=== PATIENT | male | born 1970 | race Caucasian/White ===

== ENCOUNTER 2024-02-16 06:17 | Inpatient (IN) | payer MEDICAID ==
[~2024-02-16] VITALS: Ht 167.6 cm; Wt 52.4 kg
[2024-02-16] VITALS (9 sets, daily range): BP systolic 96; BP diastolic 62; PULSE 73–95; RESP 14–20; TEMP 97.5; O2SAT 95–100
--- NOTE | 2024-02-16 06:41 | ED.PDOC ---
GI ASSESSMENT HPI Comments 54Y M with PMHx pancreatic CA, pancreatitis, and pancreatic stones presents to ED for chief complaint abd pain x3days. Pt states he was seen at a different facility yesterday and was given a Toradol 60mg injection. Per pt, he has received Dilaudid injections in the past. Pt has been unable to sleep due to the severe pain. Pt denies chest pain and SOB. Pt is being f/u by GI at [facility] but recently moved to [place] and does not have transportation to his appts in [place]. Pt was also being f/u by pain management but has not been able to get a new appt for new medications. Time Seen by MD: 06:28 Reviewed Notes: Medications, Allergies Allergies: Coded Allergies: NO KNOWN ALLERGIES (Unverified , 02/16/24) Information Source: Patient Mode of Arrival: Ambulatory Timing: Days Duration: Since onset Quality: Sharp Vomitus: None Stool: Normal Severity: Moderate Recent: None Recent Hx of: None Pain Location: Diffuse Modifying Factors: Nothing Associated sign and symptoms: Abdominal Pain Past Medical History PAST MEDICAL HISTORY: Cancer Past Medical History (Other): Pancreatitis, pancreatic stone Surgical History: Denies all surgeries Family History Family History: Unknown Social History Smoker: Non-Smoker Alcohol: Sober Drugs: Denies Drug Use Lives In: Home Constitutional: denies: chills, diaphoresis, fatigue, fever, malaise, sweats, weakness, others EENTM: denies: blurred vision, double vision, ear bleeding, ear discharge, ear drainage, ear pain, ear ringing, eye pain, eye redness, hearing loss, mouth p ain, mouth swelling, nasal discharge, nose bleeding, nose congestion, nose pain, photophobia, tearing, throat pain, throat swelling, voice changes, others Respiratory: denies: cough, hemoptysis, orthopnea, SOB at rest, shortness of br eath, SOB with excertion, stridor, wheezing, others Cardiovascular: denies: chest pain, dizzy spells, diaphoresis, Dyspnea on exertion, edema, irregular heart beat, left arm pain, lightheadedness, palpitations, PND, syncope, others Gastrointestinal: reports: abdominal pain; denies: abdomen distended, blood streaked bowels, constipated, diarrhea, dysphagia, difficulty swallowing, hematemesis, melena, nausea, poor appetite, poor fluid intake, rectal bleeding, rectal pain, vomiting, others Genitourinary: denies: burning, dysuria, flank pain, frequency, hematuria, incontinence, penile discharge, penile sore, pain, testicle pain, testicle swelling, urgency, others Neurological: denies: dizziness, fainting, headache, left sided numbness, left sided weakness, numbness, paresthesia, pre-existing deficit, right sided numbness, right sided weakness, seizure, speech problems, tingling, tremors, weakness, others Musculoskeletal: denies: back pain, gout, joint pain, joint swelling, muscle pain, muscle stiffness, neck pain, others Integumetry: denies: bruises, change in color, change in hair/nails, dryness, laceration, lesions, lumps, rash, wounds, others Allergic/Immunocompromised: denies: Difficulty Healing, Frequent Infections, Hives, Itching, others Hematologic/Lymphatic: denies: anemia, blood clots, easy bleeding, easy bruisin g, swollen glands, others Endocrine: denies: excessive hunger, excessive sweating, excessive thirst, excessive urination, flushing, intolerance to cold, intolerance to heat, unexplained weight gain, unexplained weight loss, others Psychiatric: denies: anxiety, bipolar disorder, depression, hopeless, panic disorder, schizophrenia, sleepless, suicidal, others All Other Systems: Reviewed and Negative Physical Exam General Appearance: Other (chronically ill appearing) HEENT: Normal ENT Inspection, Pharynx Normal, TMs Normal Neck: Full Range of Motion, Non-Tender, Normal, Normal Inspection Respiratory: Chest Non-Tender, Lungs Clear, No Accessory Muscle Use, No Respiratory Distress, Normal Breath Sounds Cardiovascular: No Edema, No JVD, No Murmur, No Gallop, Normal Peripheral Pulses, Regular Rate/Rhythm Breast Exam: Deferred Gastrointestinal: Diffuse, No Organomegaly, No Pulsatile Mass, Normal Bowel Sounds, Tenderness Genitalia: Deferred Pelvic: Deferred Rectal: Deferred Extremities: No calf tenderness, Normal capillary refill, Normal inspection, Normal range of motion, Non-tender, No pedal edema Musculoskeletal : Apperance: Normal Neurologic: Alert, an/sqq 89(v)15 sonar system journeyman II-XII nml as Tested, No Motor Deficits, Normal Affect, Normal Mood, No Sensory Deficits Cerebellar Function: NOT DONE Reflexes: NOT DONE Skin: Dry, Normal Color, Warm Lymphatic: No Adenopathy Was a procedure done? Was a procedure done?: No GI differential Dx Differential Diagnosis: Diverticular disease, Gastroenteritis, Pancreatitis, Electrolyte Imbalance, Bacterial, Malnutrition X-Ray, Labs, Meds, VS Vital Signs Date Time Temp Pulse Resp B/P (MAP) Pulse Ox O2 Delivery O2 Flow Rate FiO2 02/16/24 06:56 16 96 Room Air* 0 21 02/16/24 06:55 104 18 116/76 02/16/24 06:40 98.6 104 20 116/76 (89) 98 98.6 02/16/24 06:23 97.9 102 20 96/65 (75) 98 Lab Test 02/16/24 07:18 Range/Units White Blood Count 7.3 4.4-10.8 10^3/uL Red Blood Count 3.75 L 4.5-5.90 10^6/uL Hemoglobin 12.3 L 13.5-17.5 g/dL Hematocrit 36.4 L 41.0-53.0 % Mean Corpuscular Volume 97.0 80.0-100.0 fL Mean Corpuscular Hemoglobin 32.7 H 28.0-32.0 pg Mean Corpuscular Hemoglobin Concent 33.7 32.0-36.0 g/dL Red Cell Distribution Width 16.4 H 11.8-14.3 % Platelet Count 415 140-450 10^3/uL Mean Platelet Volume 6.1 L 6.9-10.8 fL Neutrophils (%) (Auto) 59.4 37.0-80.0 % Lymphocytes (%) (Auto) 27.2 10.0-50.0 % Monocytes (%) (Auto) 9.4 0.0-12.0 % Eosinophils (%) (Auto) 3.4 0.0-7.0 % Basophils (%) (Auto) 0.6 0.0-2.0 % Neutrophils # (Auto) 4.3 1.6-8.6 10 ^3/uL Lymphocytes # (Auto) 2.0 0.4-5.4 10 ^3/uL Monocytes # (Auto) 0.7 0-1.3 10 ^3/uL Eosinophils # (Auto) 0.2 0-0.8 10 ^3/uL Basophils # (Auto) 0 0-0.2 10 ^3/uL Nucleated Red Blood Cells 0.1 % Sodium Level 139 136-145 mmol/L Potassium Level 4.1 3.5-5.1 mmol/L Chloride Level 107 98-107 mmol/L Carbon Dioxide Level 25 20-31 mmol/L Anion Gap 7 5-15 Blood Urea Nitrogen 14 9-23 mg/dL Creatinine 0.57 L 0.700-1.30 mg/dL Glomerular Filtration Rate Calc 116 >90 mL/min BUN/Creatinine Ratio 24.6 H 10.0-20.0 Serum Glucose 100 74-106 mg/dL Lactic Acid Level 0.7 0.4-2.0 mmol/L Calcium Level 8.9 8.7-10.4 mg/dL Total Bilirubin 0.2 0.2-1.0 mg/dL Aspartate Amino Transferase (AST) 17 13-40 U/L Alanine Aminotransferase (ALT) 13 7-40 U/L Alkaline Phosphatase 107 46-116 U/L Total Protein 6.5 5.7-8.2 g/dL Albumin 3.6 3.2-4.8 g/dL Lipase 68 H 12-53 U/L Current Medications Medications (Trade) Dose Ordered Sig/Desean Route Start Time Stop Time Status Last Admin Sodium Chloride 1,000 ml @ 1,000 mls/hr Q1H ONCE IV 02/16/24 06:45 02/16/24 07:44 DC 02/16/24 06:53 Ondansetron HCl (Zofran) 4 mg ONCE ONCE IV 02/16/24 06:45 02/16/24 06:46 DC 02/16/24 06:54 Pantoprazole Sodium (Protonix) 40 mg ONCE ONCE IV 02/16/24 06:45 02/16/24 06:46 DC 02/16/24 06:54 Morphine Sulfate 4 mg ONCE ONCE IV 02/16/24 06:45 02/16/24 06:46 DC 02/16/24 06:[address] [address] Ph: [phone] DIAGNOSTIC IMAGING Diagnostic Imaging Report : [id number] Signed PATIENT: BC STERLING ACCT: [id number] UNIT: [id number] : 1970 LOC: ER ROOM / BED: / AGE / SEX: 54 / M ADM STATUS: REG ER SERVICE 1 ORDERING PHYSICIAN: IDA HARTMAN MD PROCEDURE(s): CXRP - CHEST PORTABLE REASON: epigastric pain ORDER NUMBER(s): [id number], ACCESSION NUMBER(s): [id number] CHEST PORTABLE, HISTORY: epigastric pain COMPARISON: None None TECHNICAL DATA: 1 view of the chest was obtained. FINDINGS: Lines and tubes: None Cardiomediastinal silhouette: normal Pulmonary vasculature: normal Lung expansion: normal Lung airspace: Bilateral upper lung zone airspace opacity. Lung interstitium: normal Pleura: normal Pneumothorax: no Bones: Unremarkable Other: no IMPRESSION: Bilateral upper lung zone airspace opacity could be pneumonia.. ATED BY: FADY NULL MD DICTATED DATE/TIME: 02/16/24906 SIGNED BY: FADY NULL MD SIGNED DATE/TIME: 02/16/24906 CC: [place] [address] Ph: [phone] DIAGNOSTIC IMAGING Diagnostic Imaging Report : [id number] Signed PATIENT: BC STERLING ACCT: [id number] UNIT: [id number] : 1970 LOC: ER ROOM / BED: / AGE / SEX: 54 / M ADM STATUS: REG ER SERVICE 1 ORDERING PHYSICIAN: IDA HARTMAN MD PROCEDURE(s): ABPLIV - CT AB PEL WITH IV CON ONLY REASON: hx of pancreatic ca with epigastric pain ORDER NUMBER(s): [id number], ACCESSION NUMBER(s): [id number] CT CT AB PEL WITH IV CON ONLY INDICATION: hx of pancreatic ca with epigastric pain EXAM DATE: 02/16/2024 08:37 AM COMPARISON: None RADIATION DOSE: CTDIvol: 5.0 mGy, DLP: 276.63 mGy*cm PROCEDURE: Helical CT images were obtained of the abdomen and pelvis with IV contrast Sagittal and coronal reconstructions are provided. ORAL CONTRAST: None. ADDITIONAL IMAGES / REFORMATS: None All CT scans at this medical facility are performed using dose modulation techniques as appropriate to a performed exam including the following: Automated exposure control was utilized; adjustment of the MA and/or KV according to patient size; and use of iterative reconstruction technique. FINDINGS: LUNG BASE: Normal. LIVER: Subcentimeter hypodense cystic lesion too small to characterize. GALLBLADDER AND BILIARY TREE: No calcified gallstones. Normal caliber wall. Mild intrahepatic bile duct dilation. PANCREAS: Coarse pancreatic calcifications and dilated pancreatic duct with a hypodense cystic mass lesion at the head of the pancreas. SPLEEN: Normal. BOWEL: Normal in size. Normal appendix. ADRENALS: Normal. KIDNEYS AND URETER: Normal. BLADDER: Normal. REPRODUCTIVE ORGANS: Normal. LYMPH NODES:No lymphadenopathy. PERITONEUM: No ascites or free air. No other fluid collection. VESSELS: Scattered atherosclerotic calcifications are noted. RETROPERITONEUM: Normal. ABDOMINAL WALL: Normal. BONES: Scattered osseous degenerative changes are noted. IMPRESSION: No acute intraabdominal abnormality. Moderate to large colonic fecal burden. Coarse pancreatic calcifications and dilated pancreatic duct with a hypodense cystic mass lesion at the head of the pancreas. Subcentimeter hypodense cystic lesion too small to characterize. ATED BY: FADY NULL MD DICTATED DATE/TIME: 02/16/24925 SIGNED BY: FADY NULL MD SIGNED DATE/TIME: 02/16/24925 CC: Time of 1ST Reevaluation: 06:58 Reevaluation 1ST: Unchanged Patient Education/Counseling: Diagnosis, Treatment Family Education/Counseling: No Family Present Additional Information The following tests were ordered, and results were reviewed by me: CBC, CMP, lactic acid, lipase, CXR, CT abd/pelvis W IV contrast I reviewed and agreed with the following test results read by other providers: CXR, CT abd/pelvis W IV contrast I discussed treatments and results with medical personnel. Departure 1 Departure Time of Disposition: 10:08 (Patient presented with abdominal pain that was concerning for possible appendicits, gastritis, cholecystitis, colitis, gastroenteritis, sbo, or orther possible surgical emergency. Data: 1. I ordered and reviewed the result of at least 3 labs including a CBC, BMP, and Urinalysis. 2. I independently interpreted the following tests: CT Abdoment and Pelvis is concerning for chronic pancreatitis and pancreatic cancer .3. Patient's chest x- ray is concerning for possible pneumonia.Risk:This patient has a high risk of morbidity due to further diagnostic testing or treatment and may suffer from an acute abdominal process disorder. Workup reveals intractable abdominal pain and concern for pancreatitis. and patient should be admitted for further workup. and possible expert consultation. ) Impression: Primary Impression: Chronic pancreatitis Qualified Codes: K86.0 - Alcohol-induced chronic pancreatitis Additional Impressions: Intractable abdominal pain Pancreatic mass Weakness Disposition: ADMITTED INPATIENT Admit to: Med Surg Condition: Serious Critical Care Note Critical Care Time?: Yes Critical care comment: Intractable abdominal pain Authorized and Performed by: Ida Hartman MD Total critical care time: Approximately 33 minutes Due to a high probability of clinically significant, life threatening deterioration, the patient required my highest level of preparedness to intervene emergently and I personally spent this critical care time directly and personally managing the patient. This critical care time included obtaining a history; examining the patient; pulse oximetry; ordering and review of studies; arranging urgent treatment with development of a management plan; evaluation of patient's response to treatment; frequent reassessment; and, discussions with other providers. This critical care time was performed to assess and manage the high probability of imminent, life-threatening deterioration that could result in multi-organ failure. It was exclusive of separately billable procedures and treating other patients and teaching time. Please see my other sections and the rest of the note for further information on patient assessment and treatment. Stability Stability form required: No Heart Score Heart Score: Heart Score Response (Comments) Value History N/A 0 EKG N/A 0 Age N/A 0 Risk Factors N/A 0 Troponin N/A 0 Total 0 I personally scribed for IDA HARTMNA MD (PEDRO) on 02/16/24 at 06:41. Electronically submitted by Amairani Gutierrez ([employer]). I personally scribed for IDA HARTMAN MD (PEDRO) on 02/16/24 at 06:56. Electronically submitted by Amairani Gutierrez ([employer]). I personally scribed for IDA HARTMAN MD (PEDRO) on 02/16/24 at 10:04. Electronically submitted by Amairani Gutierrez ([employer]). IDA HARTMAN MD Feb 16, 2024 06:41
[2024-02-16] MEDS: SODIUM CHLORIDE 0.9% 1,000 ML IV ONE (06:53)
[2024-02-16] MEDS: PANTOPRAZOLE 40 MG/10 ML VIAL INJ IV ONE ×2 (06:54→12:44)
[2024-02-16] MEDS: ONDANSETRON HCL 4 MG/2 ML VIAL IV ONE ×2 (06:54→10:52)
[2024-02-16] MEDS: MORPHINE SULFATE 4 MG/ML SYR/VIAL IV ONE ×2 (06:55→10:53)
[2024-02-16 07:31] LABS: Basophils # (auto) 0 10 ^3/uL (0-0.2); Basophils % (auto) 0.6 % (0.0-2.0); Eosinophils # (auto) 0.2 10 ^3/uL (0-0.8); Eosinophils % (auto) 3.4 % (0.0-7.0); Hematocrit 36.4 % (41.0-53.0); Hemoglobin 12.3 g/dL (13.5-17.5); Lymphocytes % (auto) 27.2 % (10.0-50.0); Mean Corpuscular Hemoglobin 32.7 pg (28.0-32.0); Mean Corpuscular Hgb Conc. 33.7 g/dL (32.0-36.0); Monocytes # (auto) 0.7 10 ^3/uL (0-1.3); Monocytes % (auto) 9.4 % (0.0-12.0); Neutrophils # (auto) 4.3 10 ^3/uL (1.6-8.6); Neutrophils % (auto) 59.4 % (37.0-80.0); Nucleated Red Blood Cells % 0.1 %; Platelet Count (auto) 415 10^3/uL (140-450); Red Blood Cells 3.75 10^6/uL (4.5-5.90); Red Cell Distribution Width 16.4 % (11.8-14.3); White Blood Cell 7.3 10^3/uL (4.4-10.8)
[2024-02-16 07:50] LABS: Alanine Aminotransferase 13 U/L (7-40); Albumin 3.6 g/dL (3.2-4.8); Alkaline Phosphatase 107 U/L (46-116); Anion Gap 7 (5-15); Aspartate Aminotransferase 17 U/L (13-40); BUN/Creatinine Ratio 24.6 (10.0-20.0); Blood Urea Nitrogen 14 mg/dL (9-23); Calcium 8.9 mg/dL (8.7-10.4); Carbon Dioxide 25 mmol/L (20-31); Glucose 100 mg/dL (74-106); Potassium 4.1 mmol/L (3.5-5.1); Sodium 139 mmol/L (136-145)
[2024-02-16 07:51] LABS: Total Protein 6.5 g/dL (5.7-8.2)
[2024-02-16 08:25] LABS: Bilirubin, Total 0.2 mg/dL (0.2-1.0); Chloride 107 mmol/L (98-107); Lipase 68 U/L (12-53)
--- NOTE | 2024-02-16 09:09 | DVH ---
XY CHEST PORTABLE, HISTORY: epigastric pain COMPARISON: None None TECHNICAL DATA: 1 view of the chest was obtained. FINDINGS: Lines and tubes: None Cardiomediastinal silhouette: normal Pulmonary vasculature: normal Lung expansion: normal Lung airspace: Bilateral upper lung zone airspace opacity. Lung interstitium: normal Pleura: normal Pneumothorax: no Bones: Unremarkable Other: no IMPRESSION: Bilateral upper lung zone airspace opacity could be pneumonia..
--- NOTE | 2024-02-16 09:29 | DVH ---
CT CT AB PEL WITH IV CON ONLY INDICATION: hx of pancreatic ca with epigastric pain EXAM DATE: 02/16/2024 08:37 AM COMPARISON: None RADIATION DOSE: CTDIvol: 5.0 mGy, DLP: 276.63 mGy*cm PROCEDURE: Helical CT images were obtained of the abdomen and pelvis with IV contrast Sagittal and c oronal reconstructions are provided. ORAL CONTRAST: None. ADDITIONAL IMAGES / REFORMATS: None All CT scans at this medical facility are performed using dose modulation techniques as appropriate t o a performed exam including the following: Automated exposure control was utilized; adjustment of th e MA and/or KV according to patient size; and use of iterative reconstruction technique. FINDINGS: LUNG BASE: Normal. LIVER: Subcentimeter hypodense cystic lesion too small to characterize. GALLBLADDER AND BILIARY TREE: No calcified gallstones. Normal caliber wall. Mild intrahepatic bile du ct dilation. PANCREAS: Coarse pancreatic calcifications and dilated pancreatic duct with a hypodense cystic mass l esion at the head of the pancreas. SPLEEN: Normal. BOWEL: Normal in size. Normal appendix. ADRENALS: Normal. KIDNEYS AND URETER: Normal. BLADDER: Normal. REPRODUCTIVE ORGANS: Normal. LYMPH NODES:No lymphadenopathy. PERITONEUM: No ascites or free air. No other fluid collection. VESSELS: Scattered atherosclerotic calcifications are noted. RETROPERITONEUM: Normal. ABDOMINAL WALL: Normal. BONES: Scattered osseous degenerative changes are noted. IMPRESSION: No acute intraabdominal abnormality. Moderate to large colonic fecal burden. Coarse pancreatic calcifications and dilated pancreatic duct with a hypodense cystic mass lesion at t he head of the pancreas. Subcentimeter hypodense cystic lesion too small to characterize.
[2024-02-16] MEDS: AZITHROMYCIN 250 MG TAB PO ONE (10:38)
[2024-02-16] MEDS: VANCOMYCIN 1GM/200ML PREMIX 200 ML IV ONE (10:39)
[2024-02-16] MEDS ORDERED: RIFA150C27 PO (11:18)
[2024-02-16] MEDS ORDERED: RIVA2.5T PO (11:18)
[2024-02-16] MEDS ORDERED: [UNRECOGNIZED DRUG - CODE] PO (11:18)
[2024-02-16] MEDS ORDERED: AZIT-43 PO (11:18)
[2024-02-16] MEDS ORDERED: ETHA100T14 PO (11:18)
[2024-02-16] MEDS ORDERED: SUCR1TAB PO (11:18)
--- NOTE | 2024-02-16 11:22 | DVHHP2 ---
History of Present Illness Reason for Visit: Abdominal pain History of Present Illness This 54-year-old male presents in the ED with a chief complaint of abdominal pain. The patient reports history of chronic pancreatitis under GI at [facility] [place], who states when to an urgent care yesterday and received Toradol to control abdominal pain. The patient reports Toradol did not Held and was given Dilaudid in the past so decided to come to the emergency department for pain control. The patient reports he has an upcoming GI appointment on 03/30/24. The patient denies nausea, vomiting, constipation, or diarrhea. Past medical history of MAC pneumonia, pancreatitis,and tobacco use. Past Medical History As stated in HPI Past Surgical History Denies Family History Reviewed, non-contributory to the management of this case. Past Social History Admits to smoking 10 cigarettes per day x 10 years Denies illicit drug or ETOH abuse Review of Systems Constitutional: Yes: Malaise; No: Fever, Chills, Sweats, Weakness, Other Eyes: No: Pain, Vision change, Conjunctivae inflammation, Eyelid inflammation, Other, Redness ENT: No: Ear pain, Ear discharge, Nose pain, Nose discharge, Nose congestion, Mouth pain, Mouth swelling, Throat pain, Throat swelling, Other Respiratory: No: Cough, Dry, Shortness of breath, SOB with excertion, Wheezing, Hemoptysis, Pleuritic Pain, Sputum, Wheezing, Other Cardiovascular: No: Chest Pain, Palpitations, Orthopnea, Paroxysmal Noc. Dyspnea, Edema, Lt Headedness, Other Gastrointestinal: Abdominal Pain; No: Nausea, Vomiting, Diarrhea, Constipation, Melena, Hematochezia, Other Genitourinary: No Dysuria, No Frequency, No Incontinence, No Hematuria, No Retention, No Other Musculoskeletal: No: other, neck pain, shoulder pain, arm pain, back pain, hand pain, leg pain, foot pain Neurological: No: Weakness, Numbness, Incoordination, Change in speech, Confusion, Seizures, Other Allergies: Coded Allergies: NO KNOWN ALLERGIES (Unverified , 02/16/24) Medications Current Medications Medications Dose Ordered Sig/Desean Route Start Time Stop Time Status Last Admin Dose Admin Pantoprazole Sodium 40 mg DAILY IV 02/17/24 10:00 UNV Exam Vital Signs Vital Signs Date Time Temp Pulse Resp B/P (MAP) Pulse Ox O2 Delivery O2 Flow Rate FiO2 02/16/24 11:04 18 98 Room Air* 0 21 02/16/24 11:03 98.3 86 95/60 (72) 98.3 General Appearance: Alert, Oriented X3, Cooperative, moderate distress HEENT: Atraumatic, PERRLA, EOMI Respiratory: Clear to auscultation, Normal air movement Cardiovascular: Regular rate, Normal S1, Normal S2 Abdominal: Normal bowel sounds, Other (Tenderness to palpation) Extremities: No clubbing, No cyanosis, No edema, Normal pulses, No tenderness/swelling Skin: No rashes, No breakdown, No significant lesion Neuro: Normal gait, Normal speech, Strength at 5/5 X4 ext, Normal tone, Sensation intact Psych/Mental Status: Mental status NL Labs/Xrays Labs Test 02/16/24 07:18 Range/Units White Blood Count 7.3 4.4-10.8 10^3/uL Red Blood Count 3.75 L 4.5-5.90 10^6/uL Hemoglobin 12.3 L 13.5-17.5 g/dL Hematocrit 36.4 L 41.0-53.0 % Mean Corpuscular Volume 97.0 80.0-100.0 fL Mean Corpuscular Hemoglobin 32.7 H 28.0-32.0 pg Mean Corpuscular Hemoglobin Concent 33.7 32.0-36.0 g/dL Red Cell Distribution Width 16.4 H 11.8-14.3 % Platelet Count 415 140-450 10^3/uL Mean Platelet Volume 6.1 L 6.9-10.8 fL Neutrophils (%) (Auto) 59.4 37.0-80.0 % Lymphocytes (%) (Auto) 27.2 10.0-50.0 % Monocytes (%) (Auto) 9.4 0.0-12.0 % Eosinophils (%) (Auto) 3.4 0.0-7.0 % Basophils (%) (Auto) 0.6 0.0-2.0 % Neutrophils # (Auto) 4.3 1.6-8.6 10 ^3/uL Lymphocytes # (Auto) 2.0 0.4-5.4 10 ^3/uL Monocytes # (Auto) 0.7 0-1.3 10 ^3/uL Eosinophils # (Auto) 0.2 0-0.8 10 ^3/uL Basophils # (Auto) 0 0-0.2 10 ^3/uL Nucleated Red Blood Cells 0.1 % Sodium Level 139 136-145 mmol/L Potassium Level 4.1 3.5-5.1 mmol/L Chloride Level 107 98-107 mmol/L Carbon Dioxide Level 25 20-31 mmol/L Anion Gap 7 5-15 Blood Urea Nitrogen 14 9-23 mg/dL Creatinine 0.57 L 0.700-1.30 mg/dL Glomerular Filtration Rate Calc 116 >90 mL/min BUN/Creatinine Ratio 24.6 H 10.0-20.0 Serum Glucose 100 74-106 mg/dL Lactic Acid Level 0.7 0.4-2.0 mmol/L Calcium Level 8.9 8.7-10.4 mg/dL Total Bilirubin 0.2 0.2-1.0 mg/dL Aspartate Amino Transferase (AST) 17 13-40 U/L Alanine Aminotransferase (ALT) 13 7-40 U/L Alkaline Phosphatase 107 46-116 U/L Total Protein 6.5 5.7-8.2 g/dL Albumin 3.6 3.2-4.8 g/dL Lipase 68 H 12-53 U/L PROCEDURE(s): CXRP - CHEST PORTABLE REASON: epigastric pain ORDER NUMBER(s): [id number], ACCESSION NUMBER(s): [id number] XY CHEST PORTABLE, HISTORY: epigastric pain COMPARISON: None None TECHNICAL DATA: 1 view of the chest was obtained. FINDINGS: Lines and tubes: None Cardiomediastinal silhouette: normal Pulmonary vasculature: normal Lung expansion: normal Lung airspace: Bilateral upper lung zone airspace opacity. Lung interstitium: normal Pleura: normal Pneumothorax: no Bones: Unremarkable Other: no IMPRESSION: Bilateral upper lung zone airspace opacity could be pneumonia.. Assessment/Plan Assessment/Plan # acute on chronic pancreatitis # acute abdominal pain Admit to medical unit NPO IV fluid Pain control # MAC pneumonia Continue rifampin, ethambutol, and azithromycin Med neb treatment # tobacco use Nicotine patch Smoking cessation counseled Medical plan discussed with patient Plan discussed with: Patient My Orders Orders - CARLOS FOWLER [employer] Procedure Category Date Status Time Blood Culture WILLIAM 02/16/24 Logged 10:27 Pantoprazole PHA 02/17/24 Logged (Protonix) 10:00 Pantoprazole PHA 02/16/24 Logged (Protonix) 10:30 Chest Portable XY 02/17/24 Verified 04:00 Albuterol Medneb PHA 02/16/24 Verified (Ventolin Medneb) 11:30 Albuterol Medneb PHA 02/16/24 Verified (Ventolin Medneb) 12:00 Date of Service: Feb 16, 2024 Billing Provider: CARLOS FOWLER Common Visit Codes: [id number] INP/OBS CARE (HIGH) CARLOS FOWLER Feb 16, 2024 11:22
[2024-02-16] MEDS ORDERED: ALBUTEROL SULF 2.5 MG/0.5ML(0.5%) NEB SOLN NEB PRN (11:30)
[2024-02-16] MEDS ORDERED: IPRATROPIUM BROM 0.5 MG/2.5ML INH SOL NEB PRN (11:30)
[2024-02-16] MEDS ORDERED: ONDANSETRON HCL 4 MG/2 ML VIAL IV PRN (11:30)
[2024-02-16] MEDS: IPRATROPIUM BROM 0.5 MG/2.5ML INH SOL NEB SCH (12:27)
[2024-02-16] MEDS: ALBUTEROL SULF 2.5 MG/0.5ML(0.5%) NEB SOLN NEB SCH (12:27)
[2024-02-16] MEDS: NICOTINE 7MG/24HR TOPICAL PATCH TD ONE (12:44)
[2024-02-16] MEDS: SODIUM CHLORIDE 0.9% 1,000 ML IV SCH (12:45)
[2024-02-16] MEDS: CEFEPIME 2GM/50ML NS 50 ML IV ONE (12:45)
[2024-02-16] MEDS: HYDROMORPHONE HCL 1 MG/ML INJ IV PRN (13:09)
[2024-02-16] MEDS: HYDROmorphone HCL 2 MG/ML VL/or syr IV ONE (16:15)
[2024-02-16] MEDS: HYDROcodone-ACET 5/325MG TAB PO PRN (23:45)
[2024-02-17] VITALS (9 sets, daily range): BP systolic 84–102; BP diastolic 47–71; PULSE 68–102; RESP 16–20; TEMP 97.2–98.7; O2SAT 95–100
[2024-02-17] MEDS: ACETAMINOPHEN 325 MG TAB PO PRN (02:17)
--- NOTE | 2024-02-17 05:04 | DVH ---
CHEST RADIOGRAPH Indication: sob Technique: Single frontal view of the chest was obtained COMPARISON: XY CHEST PORTABLE on DOS: 02/16/24 FINDINGS: Lines and Tubes: None Lungs: Unchanged scarring and opacities in the bilateral upper lobes. Pleura: No effusion. No pneumothorax. Cardiomediastinal contours: Unremarkable Bones: Unremarkable IMPRESSION: Unchanged scarring and airspace disease in the bilateral upper lobes. Atypical infection is not exclu ded. Clinical correlation advised.
[2024-02-17 05:43] LABS: Basophils # (auto) 0.1 10 ^3/uL (0-0.2); Basophils % (auto) 0.8 % (0.0-2.0); Eosinophils # (auto) 0.2 10 ^3/uL (0-0.8); Eosinophils % (auto) 2.5 % (0.0-7.0); Hematocrit 30.9 % (41.0-53.0); Hemoglobin 10.5 g/dL (13.5-17.5); Lymphocytes # (auto) 2.3 10 ^3/uL (0.4-5.4); Lymphocytes % (auto) 33.9 % (10.0-50.0); Mean Corpuscular Hemoglobin 32.7 pg (28.0-32.0); Mean Corpuscular Hgb Conc. 33.9 g/dL (32.0-36.0); Mean Corpuscular Volume 96.4 fL (80.0-100.0); Monocytes # (auto) 0.6 10 ^3/uL (0-1.3); Monocytes % (auto) 9.3 % (0.0-12.0); Neutrophils # (auto) 3.6 10 ^3/uL (1.6-8.6); Neutrophils % (auto) 53.5 % (37.0-80.0); Platelet Count (auto) 358 10^3/uL (140-450); Red Blood Cells 3.21 10^6/uL (4.5-5.90); Red Cell Distribution Width 16.2 % (11.8-14.3); White Blood Cell 6.7 10^3/uL (4.4-10.8)
[2024-02-17 05:57] LABS: Alanine Aminotransferase 14 U/L (7-40); Albumin 3.4 g/dL (3.2-4.8); Alkaline Phosphatase 94 U/L (46-116); Anion Gap 7 (5-15); Aspartate Aminotransferase 19 U/L (13-40); BUN/Creatinine Ratio 22.2 (10.0-20.0); Blood Urea Nitrogen 10 mg/dL (9-23); Calcium 9.2 mg/dL (8.7-10.4); Carbon Dioxide 25 mmol/L (20-31); Chloride 105 mmol/L (98-107); Potassium 4.1 mmol/L (3.5-5.1); Sodium 137 mmol/L (136-145)
[2024-02-17 05:59] LABS: Bilirubin, Total 0.2 mg/dL (0.2-1.0); Glucose 109 mg/dL (74-106)
[2024-02-17] MEDS: NICOTINE 7MG/24HR TOPICAL PATCH TD SCH (10:00)
[2024-02-17] MEDS: PANTOPRAZOLE 40 MG/10 ML VIAL INJ IV SCH (12:38)
--- NOTE | 2024-02-17 17:29 | DVHPN2 ---
Subjective Patient continues to complain of epigastric pain . Discussion was made with the patient regarding his medical history regarding chronic pancreatitis. He states that he sees chronic pain management, who can not make an appointment in a timely manner at [place], with the patient also reporting that he was instructed to go to urgent cares when his pain can not be controlled at home. Reviewed: Care Plan, H&P, Labs Changes from previous H/P or p: No Changes Eyes: No Pain, No Vision change, No Conjunctivae inflammation, No Eyelid inflammation, No Other, No Redness ENT: No Ear pain, No Ear discharge, No Nose pain, No Nose discharge, No Nose congestion, No Mouth pain, No Mouth swelling, No Throat pain, No Throat swelling, No Other Cardiovascular: No Chest Pain, No Palpitations, No Orthopnea, No Paroxysmal Noc. Dyspnea, No Edema, No Lt Headedness, No Other Respiratory: No Cough, No Dry, No Shortness of breath, No SOB with excertion, No Wheezing, No Hemoptysis, No Pleuritic Pain, No Sputum, No Other Gastrointestinal: No Nausea, No Vomiting; Abdominal Pain; No Diarrhea, No Constipation, No Melena, No Hematochezia, No Other Genitourinary: No Dysuria, No Frequency, No Incontinence, No Hematuria, No Retention, No Other Musculoskeletal: No other, No neck pain, No shoulder pain, No arm pain, No back pain, No hand pain, No leg pain, No foot pain Objective Vitals Vital Signs Date Time Temp Pulse Resp B/P (MAP) Pulse Ox O2 Delivery O2 Flow Rate FiO2 02/17/24 16:16 94 20 87/50 (62) 95 02/17/24 10:24 98.7 98.7 02/17/24 03:51 Room Air* 0 21 General Appearance: Alert, Oriented X3, Cooperative, mild distress HEENT: Atraumatic, PERRLA Lungs: Clear to auscultation, Normal air movement Cardiovascular: Normal S1, Normal S2 Psych/Mental Status: Mental status NL, Mood NL Medications Current Medications Medications Dose Ordered Sig/Desean Route Start Time Stop Time Status Last Admin Dose Admin Pantoprazole Sodium 40 mg DAILY IV 02/17/24 10:00 02/17/24 12:38 40 MG Albuterol 2.5 mg Q4HPRN PRN NEB 02/16/24 11:30 Ipratropium [place] 0.5 mg Q4HPRN PRN NEB 02/16/24 11:30 Nicotine 1 patch DAILY TD 02/17/24 10:00 Sodium Chloride 1,000 ml @ 100 mls/hr Q10H IV 02/16/24 11:30 02/17/24 08:40 100 MLS/HR Acetaminophen/ Hydrocodone Bitart 1 tab Q4HP PRN PO 02/16/24 11:30 02/17/24 15:30 1 TAB Ondansetron HCl 4 mg Q4HP PRN IV 02/16/24 11:30 Acetaminophen 650 mg Q6HP PRN PO 02/16/24 11:30 02/17/24 02:17 650 MG Hydromorphone HCl 0.5 mg Q4HPRN PRN IV 02/16/24 11:30 02/17/24 13:32 0.5 MG Laboratory Results Laboratory Tests 02/17/24 05:10 Chemistry Test 02/17/24 05:10 Albumin 3.4 g/dL (3.2-4.8) Calcium Level 9.2 mg/dL (8.7-10.4) Total Protein 6.0 g/dL (5.7-8.2) LFT Test 02/17/24 05:10 Alanine Aminotransferase (ALT) 14 U/L (7-40) Alkaline Phosphatase 94 U/L (46-116) Aspartate Amino Transferase (AST) 19 U/L (13-40) Total Bilirubin 0.2 mg/dL (0.2-1.0) Microbiology Microbiology Date/Time Source Procedure Growth Status 02/16/24 13:00 Blood Blood Culture - Preliminary NO GROWTH AFTER 24 HOURS OF INCUBATION. Resulted Labs and/or images reviewed: Labs reviewed by me, Image(s) reviewed by me Assessment/Plan Assessment/Plan Impression: -abdominal pain secondary to chronic pancreatitis -chronic pain syndrome -cachexia -nicotine dependence - MAC pneumonia -anemia Plan: -start p.o. diet -continue home antibiotics for continue treatment of MAC -transitioned to oral analgesics: Oxycodone -repeat labs including lipase in a.m. -PPI -assess for discharge planning tomorrow Total time spent with patient discussing and formulating plan of care: 35 minutes. This medical document was created using an electronic medical record system with Dragon computerized dictation system. Although this document has been carefully reviewed, there may still be some phonetic and typographical errors. These areas are purely typographical due to imperfections of the software programs, and do not reflect any compromise in the patient's medical care. Plan discussed with: Patient, Other (RN) My Orders Orders - BERENICE MANNING NP Procedure Category Date Status Time Regular Diet DIET 02/17/24 Verified Dinner Nutritional PHA 02/17/24 Verified Supplements (Ensure 18:00 Comprehensive LAB 02/18/24 Verified Metabolic Panel 04:00 Lipase LAB 02/18/24 Verified 04:00 Oxycodone Er Tablet PHA 02/17/24 Verified (Oxycontin Er Tablet 22:00 Carbohydrate Antigen LAB 02/18/24 Verified 19-9 04:00 Date of Service: Feb 17, 2024 Billing Provider: BERENICE MANNING NP Common Visit Codes: [id number] INP/OBS CARE(HIGH) BERENICE MANNING NP Feb 17, 2024 17:29
[2024-02-17] MEDS: ENSURE CLEAR Mixed Berry 8oz Carton PO SCH (18:00)
[2024-02-17] MEDS ORDERED: PANC1CAP54 PO (18:09)
[2024-02-17] MEDS: oxyCODONE ER 10 MG TAB PO SCH (21:48)
[2024-02-18 05:12] VITALS: BP 102/68; PULSE 91; RESP 18; TEMP 98.1; O2SAT 96
[2024-02-18 07:36] LABS: Alanine Aminotransferase 27 U/L (7-40); Albumin 3.5 g/dL (3.2-4.8); Alkaline Phosphatase 104 U/L (46-116); Anion Gap 5 (5-15); Aspartate Aminotransferase 29 U/L (13-40); BUN/Creatinine Ratio 15.6 (10.0-20.0); Bilirubin, Total 0.3 mg/dL (0.2-1.0); Blood Urea Nitrogen 7 mg/dL (9-23); Calcium 9.2 mg/dL (8.7-10.4); Carbon Dioxide 27 mmol/L (20-31); Chloride 105 mmol/L (98-107); Glucose 92 mg/dL (74-106); Lipase 90 U/L (12-53); Potassium 4.2 mmol/L (3.5-5.1); Sodium 137 mmol/L (136-145); Total Protein 6.1 g/dL (5.7-8.2)
[2024-02-18 08:48] VITALS: BP 107/68; PULSE 72; RESP 16; TEMP 98; O2SAT 94
[2024-02-18] MEDS ORDERED: PERCOT PO (09:30)
[2024-02-18] MEDS: ETHAMBUTOL HCL 400 MG TAB PO SCH (09:42)
[2024-02-18] MEDS: AZITHROMYCIN 250 MG TAB PO SCH (09:42)
[2024-02-18] MEDS: RIFAMPIN 150 MG PO SCH (09:44)
--- NOTE | 2024-02-18 10:48 | DVHDS2 ---
Discharge Summary Date of Admission Feb 16, 2024 at 11:18 Date of Discharge: Feb 18, 2024 Admitting Diagnosis Acute on chronic pancreatitis Labs/Diagnostic Data: Laboratory Results Test 02/18/24 06:52 02/17/24 05:10 02/16/24 16:56 02/16/24 07:18 Sodium Level 137 mmol/L (136-145) Potassium Level 4.2 mmol/L (3.5-5.1) Chloride Level 105 mmol/L (98-107) Carbon Dioxide Level 27 mmol/L (20-31) Anion Gap 5 (5-15) Blood Urea Nitrogen 7 mg/dL (9-23) Creatinine 0.45 mg/dL (0.700-1.30) Glomerular Filtration Rate Calc 124 mL/min (>90) BUN/Creatinine Ratio 15.6 (10.0-20.0) Serum Glucose 92 mg/dL (74-106) Calcium Level 9.2 mg/dL (8.7-10.4) Total Bilirubin 0.3 mg/dL (0.2-1.0) Aspartate Amino Transferase (AST) 29 U/L (13-40) Alanine Aminotransferase (ALT) 27 U/L (7-40) Alkaline Phosphatase 104 U/L (46-116) Total Protein 6.1 g/dL (5.7-8.2) Albumin 3.5 g/dL (3.2-4.8) Lipase 90 U/L (12-53) White Blood Count 6.7 10^3/uL (4.4-10.8) Red Blood Count 3.21 10^6/uL (4.5-5.90) Hemoglobin 10.5 g/dL (13.5-17.5) Hematocrit 30.9 % (41.0-53.0) Mean Corpuscular Volume 96.4 fL (80.0-100.0) Mean Corpuscular Hemoglobin 32.7 pg (28.0-32.0) Mean Corpuscular Hemoglobin Concent 33.9 g/dL (32.0-36.0) Red Cell Distribution Width 16.2 % (11.8-14.3) Platelet Count 358 10^3/uL (140-450) Mean Platelet Volume 6.3 fL (6.9-10.8) Neutrophils (%) (Auto) 53.5 % (37.0-80.0) Lymphocytes (%) (Auto) 33.9 % (10.0-50.0) Monocytes (%) (Auto) 9.3 % (0.0-12.0) Eosinophils (%) (Auto) 2.5 % (0.0-7.0) Basophils (%) (Auto) 0.8 % (0.0-2.0) Neutrophils # (Auto) 3.6 10 ^3/uL (1.6-8.6) Lymphocytes # (Auto) 2.3 10 ^3/uL (0.4-5.4) Monocytes # (Auto) 0.6 10 ^3/uL (0-1.3) Eosinophils # (Auto) 0.2 10 ^3/uL (0-0.8) Basophils # (Auto) 0.1 10 ^3/uL (0-0.2) Nucleated Red Blood Cells 0.0 % POC Glucose 115 mg/dl (70-106) Lactic Acid Level 0.7 mmol/L (0.4-2.0) Other Laboratory Tests 02/18/24 06:52 02/17/24 05:10 Brief Hx & Hospital Course: History of Present Illness This 54-year-old male presents in the ED with a chief complaint of abdominal pain. The patient reports history of chronic pancreatitis under GI at [place], who states when to an urgent care yesterday and received Toradol to control abdominal pain. The patient reports Toradol did not Held and was given Dilaudid in the past so decided to come to the emergency department for pain control. The patient reports he has an upcoming GI appointment on 03/30/24. The patient denies nausea, vomiting, constipation, or diarrhea. Past medical history of MAC pneumonia, pancreatitis,and tobacco use. Course of hospitalization: Long discussion was made with the patient regarding his plan of care outside of the hospital. Apparently, the patient is being followed by Gastroenterology at [facility]. Their plan is to place the CBD stent to assist with the pancreatic stones. At this time they feel the patient needs to be treated and complete his course for MAC pneumonia. Patient has been instructed to seek assistance with pain management given he can not obtain an appointment and timely manner with his chronic pain specialist at [place], in addition to the patient was stating that he does not want to deviate from their services given the entirety of his care we will be performed at that facility. The patient was started on oral intake, tolerating food without any worsening of his abdominal pain. The patient was requesting to be discharged home. He will be discharged with Percocet 5/325 every 8 hours as needed for [id number] pain. He was instructed to follow up with all of his previous providers managing his care outside of the hospital. He was also instructed to continue his antibiotic course for MAC. All questions answered. Physical exam General: Alert and Oriented x3. No acute distress. Well-nourished. Eyes: EOMI. Anicteric. HENT: Moist mucous membranes. Lungs: Clear to auscultation bilaterally. No accessory muscle use. Cardiovascular: Regular rate and rhythm. No murmur. No JVD. Abdomen: Soft, non-tender and non-distended. No palpable masses. Extremities: No edema. Non-tender. Skin: No rashes or lesions. Warm. Neurologic: No focal neurological deficits. CN II-XII grossly intact, but not individually tested. Psychiatric: Cooperative. Appropriate mood and affect. Total time spent with patient discussing and formulating plan of care: 35 minutes. This medical document was created using an electronic medical record system with Expert computerized dictation system. Although this document has been carefully reviewed, there may still be some phonetic and typographical errors. These areas are purely typographical due to imperfections of the software programs, and do not reflect any compromise in the patient's medical care. Condition at Discharge: Poor Final Diagnosis/Problems List abdominal pain secondary to chronic pancreatitis Secondary Diagnosis: -abdominal pain secondary to chronic pancreatitis -chronic pain syndrome -cachexia -nicotine dependence - MAC pneumonia -anemia Discharge Disposition: Home Discharge Instruct/Medications Diet: Cardiac 2g Na,low cholest Activity: No Restrictions, As Tolerated Follow Up/Referral: PCP in 1 week GI at [facility] Chronic pain management Medications: Continue all medications for MAC Percocet 5/325 Q8hrs as needed for mod to sever pain 36 Discharge Statement: "Patient was advised to return to the ER or call 911 if any headaches, dizziness, shortness of breath, chest pain, abdominal pain, bleeding, fevers, or worsening of medical condition. Patient was counseled about treatment plan, medications, possible side effects, patientverbalized understanding. All questions were answered to the best of my ability. This discharge took greater then 30 minutes in planning, reviewing documentation, counseling the patient, and discussing with other team members." ASSESSMENT ASSESSMENT Assessment abdominal pain secondary to chronic pancreatitis Date of Service: Feb 18, 2024 Billing Provider: BERENICE MANNING NP Common Visit Codes: 95191-SMK/OBS DISCH DAY >30min BERENICE MANNING NP Feb 18, 2024 10:48
== END 2024-02-18 12:00 | disposition home or self-care (01) | DRG 282 ==
LOC: ER 06:17 → OVERFLOW 11:18 → CENTRAL 02-17 17:46
PROVIDERS: ADMIT Registered Nurse; ATTEND Nurse Practitioner Acute Care
DX: K85.90 Acute pancreatitis without necrosis or infection, unspecified (principal); R64 Cachexia; J15.8 Pneumonia due to other specified bacteria; K86.1 Other chronic pancreatitis; K86.9 Disease of pancreas, unspecified; F17.210 Nicotine dependence, cigarettes, uncomplicated; G89.4 Chronic pain syndrome; D64.9 Anemia, unspecified; Z85.07 Personal history of malignant neoplasm of pancreas; Z68.1 Body mass index [BMI] 19.9 or less, adult
CPT/HCPCS: 36415; 71045; 74177; 80053; 82962; 83605; 83690; 85025; 86301; 87040; 87081; 94640; 99291; G0378; J0692; J2405; J2470

== ENCOUNTER 2024-03-08 05:15 | Emergency (ER) | payer MEDICAID ==
[~2024-03-08] VITALS: Ht 167.6 cm; Wt 50.5 kg
[~2024-03-08 05:15] MED LIST: AZIT-43 PO; ETHA100T14 PO; PANC1CAP54 PO; PERCOT PO; RIFA150C27 PO; RIVA2.5T PO; SUCR1TAB PO; [UNRECOGNIZED DRUG - CODE] PO
--- NOTE | 2024-03-08 06:51 | ED.PDOC ---
[facility] Comments "I want to dilaudid". This 54-year-old male presents requesting Dilaudid. The patient has a history of pancreatitis. He has a pain management doctor he is able to see at 8:00 a.m. this morning. However, the patient presented here. He has no acute changes symptoms pain such as fever, chills, sweats, nausea or vomiting. Denies radiation of symptoms. Patient modifying factors. Patient appears happy, calm, collected. Denies radiation of symptoms. Chief Complaint: Abdominal Pain Time Seen by MD: 06:18 Primary Care Provider: Arnold Allergies: Coded Allergies: NO KNOWN ALLERGIES (Unverified , 02/16/24) Home Meds Active Scripts Oxycodone W/ Acetaminophen (Percocet 5/325MG) 1 Tab Tb, 1 TAB PO QID for 5 Days, #20 TAB Prov:BERENICE MANNING GYROSCOPIC INSTRUMENT MECHANIC 02/18/24 Reported Medications Pancreatic Enzymes (Creon) 12,000 Unt Cap, PO 02/17/24 Sucralfate (Sucralfate) 1 Gm Tab, 1 TAB PO QID 02/16/24 Rivaroxaban (Xarelto) 2.5 Mg Tab, PO 02/16/24 Magnesium Oxide (True Magnesium Oxide) 400 Mg Tab, 1 TAB PO DAILY 02/16/24 Ethambutol Hcl (Ethambutol Hcl) 100 Mg Tab, 800 MG PO DAILY 02/16/24 Rifampin (Rifampin) 150 Mg Cap, 150 MG PO DAILY 02/16/24 Azithromycin (Azithromycin) 250 Mg Tab, 500 MG PO DAILY 02/16/24 Information Source: Patient Mode of Arrival: Ambulatory Severity: Moderate Timing: Hours Onset: Spontaneous Past Medical History PAST MEDICAL HISTORY: Cancer Surgical History: Denies all surgeries Family History Family History: Unknown Social History Smoker: Non-Smoker Alcohol: Sober Drugs: Denies Drug Use Lives In: Home Physical Exam General Appearance: No Apparent Distress, Normal HEENT: Normal ENT Inspection, Pharynx Normal, TMs Normal Neck: Full Range of Motion, Non-Tender, Normal, Normal Inspection Respiratory: Chest Non-Tender, Lungs Clear, No Accessory Muscle Use, No Respiratory Distress, Normal Breath Sounds Cardiovascular: No Edema, No JVD, No Murmur, No Gallop, Normal Peripheral Pulses, Regular Rate/Rhythm Breast Exam: Deferred Gastrointestinal: Non Tender, Normal Bowel Sounds, Soft Genitalia: Deferred Pelvic: Deferred Rectal: Deferred Extremities: Normal inspection, No pedal edema Neurologic: sales operations director II-XII nml as Tested, No Motor Deficits, No Sensory Deficits Cerebellar Function: NOT DONE Reflexes: NOT DONE Skin: Normal Color, Warm Lymphatic: NOT DONE Was a procedure done? Was a procedure done?: No Differential Diagnosis Kidney stone (Female): Pancreatitis, Strain Kidney stone (Male): Aortic dissection, Appendicitis train, Bowel obstruction, Cholelithiasis, DJD, Cholangitis, Strain X-Ray, Labs, Meds, VS Vital Signs Date Time Temp Pulse Resp B/P (MAP) Pulse Ox O2 Delivery O2 Flow Rate FiO2 03/08/24 05:28 97.9 92 20 102/64 (77) 97 X-Ray, Labs, Meds, VS Comment This 54-year-old male presents emergency room requesting Dilaudid for his chronic pancreatic pain. He presented to the ER just shortly before 6:00 a.m.. He was seen shortly after 6:00 a.m.. He states he is able to see his pain management physician at 8:00 a.m.. As such, the patient was provided with a Toradol injection. He was asked to follow up this morning with his pain management physician for a is requested Dilaudid. He was not provided with Dilaudid or any other controlled substances in the emergency room. Time of 1ST Reevaluation: 06:55 Reevaluation 1ST: Resolved Consultation: Other (Pain management) Patient Education/Counseling: Diagnosis, Need For Follow Up Family Education/Counseling: No Family Present Departure 1 Departure Time of Disposition: 06:55 Impression: Primary Impression: Chronic pancreatitis Disposition: 01 HOME / SELF CARE / HOMELESS Condition: Good Discharged With: Self Critical Care Note Critical Care Time?: No Stability Stability form required: No Heart Score Heart Score: Heart Score Response (Comments) Value History N/A 0 EKG N/A 0 Age N/A 0 Risk Factors N/A 0 Troponin N/A 0 Total 0 ARTHUR REN MD Mar 08, 2024 06:51
[2024-03-08] MEDS: KETOROLAC TROMETH 60MG/2ML VIAL IM ONE (07:24)
[2024-03-08 07:27] VITALS: BP 119/76; PULSE 93; RESP 16; TEMP 98.4; O2SAT 98
== END 2024-03-08 07:33 | disposition home or self-care (01) ==
LOC: ER 05:15
DX: K86.1 Other chronic pancreatitis (principal); Z87.19 Personal history of other diseases of the digestive system
CPT/HCPCS: 96372; 99283; J1885

== ENCOUNTER 2024-03-12 02:40 | Inpatient (IN) | payer MEDICAID ==
[2024-03-12] VITALS (10 sets, daily range): BP systolic 87–114; BP diastolic 55–73; PULSE 79–94; RESP 14–21; TEMP 97.8–98.9; O2SAT 21–98
[~2024-03-12] VITALS: Ht 167.6 cm; Wt 51.5 kg
[2024-03-12] MEDS: ONDANSETRON HCL 4 MG/2 ML VIAL IV ONE (03:30)
--- NOTE | 2024-03-12 03:38 | ED.PDOC ---
GI ASSESSMENT HPI Comments A 54 year old male presents to the ED with a chief complaint of abdominal pain onset 2 days. Patient states he was seen in this ED 2 days ago, was treated for pain but noticed pain has worsen. He also states he is being seen by a specialist at [place] for his Pancreatitis. Denies nausea, vomiting, diarrhea, chest pain, shortness of breath, dysuria, hematuria. No other symptoms or modifying factors present at this time. Chief Complaint: Abdominal Pain Time Seen by MD: 03:23 Primary Care Provider: Arnold Reviewed Notes: Medications, Allergies Allergies: Coded Allergies: NO KNOWN ALLERGIES (Unverified , 02/16/24) Home Meds Active Scripts Oxycodone W/ Acetaminophen (Percocet 5/325MG) 1 Tab Tb, 1 TAB PO QID for 5 Days, #20 TAB Prov:BERENICE MANNING [employer] 02/18/24 Reported Medications Pancreatic Enzymes (Creon) 12,000 Unt Cap, PO 02/17/24 Sucralfate (Sucralfate) 1 Gm Tab, 1 TAB PO QID 02/16/24 Rivaroxaban (Xarelto) 2.5 Mg Tab, PO 02/16/24 Magnesium Oxide (True Magnesium Oxide) 400 Mg Tab, 1 TAB PO DAILY 02/16/24 Ethambutol Hcl (Ethambutol Hcl) 100 Mg Tab, 800 MG PO DAILY 02/16/24 Rifampin (Rifampin) 150 Mg Cap, 150 MG PO DAILY 02/16/24 Azithromycin (Azithromycin) 250 Mg Tab, 500 MG PO DAILY 02/16/24 Information Source: Patient Mode of Arrival: Ambulatory Timing: Days Duration: Since onset Prehospital treatment: None Quality: Sharp Vomitus: None Severity: Moderate Recent: None Recent Hx of: None Pain Location: Diffuse Associated sign and symptoms: Abdominal Pain Past Medical History PAST MEDICAL HISTORY: Cancer Past Medical History (Other): Pancreatitis Surgical History: Denies all surgeries Family History Family History: Unknown Social History Smoker: Non-Smoker Alcohol: Sober Drugs: Denies Drug Use Lives In: Home Constitutional: denies: chills, diaphoresis, fatigue, fever, malaise, sweats, weakness, others EENTM: denies: blurred vision, double vision, ear bleeding, ear discharge, ear drainage, ear pain, ear ringing, eye pain, eye redness, hearing loss, mouth pain, mouth swelling, nasal discharge, nose bleeding, nose congestion, nose pain, photophobia, tearing, throat pain, throat swelling, voice changes, others Respiratory: denies: cough, hemoptysis, orthopnea, SOB at rest, shortness of breath, SOB with excertion, stridor, wheezing, others Cardiovascular: denies: chest pain, dizzy spells, diaphoresis, Dyspnea on exertion, edema, irregular heart beat, left arm pain, lightheadedness, palpitations, PND, syncope, others Gastrointestinal: reports: abdominal pain; denies: abdomen distended, blood streaked bowels, constipated, diarrhea, dysphagia, difficulty swallowing, hematemesis, melena, nausea, poor appetite, poor fluid intake, rectal bleeding, rectal pain, vomiting, others Genitourinary: denies: burning, dysuria, flank pain, frequency, hematuria, incontinence, penile discharge, penile sore, pain, testicle pain, testicle swelling, urgency, others Neurological: denies: dizziness, fainting, headache, left sided numbness, left sided weakness, numbness, paresthesia, pre-existing deficit, right sided numbness, right sided weakness, seizure, speech problems, tingling, tremors, weakness, others Musculoskeletal: denies: back pain, gout, joint pain, joint swelling, muscle pain, muscle stiffness, neck pain, others Integumetry: reports: bruises, change in color, change in hair/nails, dryness, laceration, lesions, lumps, rash, wounds, others Allergic/Immunocompromised: denies: Difficulty Healing, Frequent Infections, Hives, Itching, others Hematologic/Lymphatic: denies: anemia, blood clots, easy bleeding, easy bruising, swollen glands, others Endocrine: denies: excessive hunger, excessive sweating, excessive thirst, excessive urination, flushing, intolerance to cold, intolerance to heat, unexplained weight gain, unexplained weight loss, others Psychiatric: denies: anxiety, bipolar disorder, depression, hopeless, panic disorder, schizophrenia, sleepless, suicidal, others All Other Systems: Reviewed and Negative Physical Exam General Appearance: No Apparent Distress, Normal HEENT: Normal ENT Inspection, Pharynx Normal, TMs Normal Neck: Full Range of Motion, Non-Tender, Normal, Normal Inspection Respiratory: Chest Non-Tender, Lungs Clear, No Accessory Muscle Use, No Respiratory Distress, Normal Breath Sounds Cardiovascular: No Edema, No JVD, No Murmur, No Gallop, Normal Peripheral Pulses, Regular Rate/Rhythm Breast Exam: Deferred Gastrointestinal: No Organomegaly, Non Tender, No Pulsatile Mass, Normal Bowel Sounds, Soft Genitalia: Deferred Pelvic: Deferred Rectal: Deferred Extremities: No calf tenderness, Normal capillary refill, Normal inspection, Normal range of motion, Non-tender, No pedal edema Musculoskeletal : Apperance: Normal Neurologic: Alert, 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 Was a procedure done?: No GI differential Dx Differential Diagnosis: Gastroenteritis, Pancreatitis, Electrolyte Imbalance, Viral X-Ray, Labs, Meds, VS Vital Signs Date Time Temp Pulse Resp B/P (MAP) Pulse Ox O2 Delivery O2 Flow Rate FiO2 03/12/24 05:00 86 16 96/66 03/12/24 04:34 79 17 98/64 03/12/24 03:55 97.8 80 21 88/57 (67) 97 97.8 03/12/24 03:50 80 21 21 Room Air* 0 21 03/12/24 02:56 97.6 98 20 94/54 (67) 100 Lab Test 03/12/24 03:30 Range/Units White Blood Count 6.6 4.4-10.8 10^3/uL Red Blood Count 4.01 L 4.5-5.90 10^6/uL Hemoglobin 13.1 L 13.5-17.5 g/dL Hematocrit 39.3 L 41.0-53.0 % Mean Corpuscular Volume 98.1 80.0-100.0 fL Mean Corpuscular Hemoglobin 32.6 H 28.0-32.0 pg Mean Corpuscular Hemoglobin Concent 33.3 32.0-36.0 g/dL Red Cell Distribution Width 15.7 H 11.8-14.3 % Platelet Count 381 140-450 10^3/uL Mean Platelet Volume 6.4 L 6.9-10.8 fL Neutrophils (%) (Auto) 51.3 37.0-80.0 % Lymphocytes (%) (Auto) 36.4 10.0-50.0 % Monocytes (%) (Auto) 8.1 0.0-12.0 % Eosinophils (%) (Auto) 3.5 0.0-7.0 % Basophils (%) (Auto) 0.7 0.0-2.0 % Neutrophils # (Auto) 3.4 1.6-8.6 10 ^3/uL Lymphocytes # (Auto) 2.4 0.4-5.4 10 ^3/uL Monocytes # (Auto) 0.5 0-1.3 10 ^3/uL Eosinophils # (Auto) 0.2 0-0.8 10 ^3/uL Basophils # (Auto) 0 0-0.2 10 ^3/uL Nucleated Red Blood Cells 0.1 % Sodium Level 135 L 136-145 mmol/L Potassium Level 4.0 3.5-5.1 mmol/L Chloride Level 104 98-107 mmol/L Carbon Dioxide Level 28 20-31 mmol/L Anion Gap 3 L 5-15 Blood Urea Nitrogen 8 L 9-23 mg/dL Creatinine 0.68 L 0.700-1.30 mg/dL Glomerular Filtration Rate Calc 110 >90 mL/min BUN/Creatinine Ratio 11.8 10.0-20.0 Serum Glucose 126 H 74-106 mg/dL Calcium Level 10.2 8.7-10.4 mg/dL Total Bilirubin 0.2 0.2-1.0 mg/dL Aspartate Amino Transferase (AST) 14 13-40 U/L Alanine Aminotransferase (ALT) 13 7-40 U/L Alkaline Phosphatase 117 H 46-116 U/L Total Protein 7.5 5.7-8.2 g/dL Albumin 4.3 3.2-4.8 g/dL Lipase 103 H 12-53 U/L Current Medications Medications (Trade) Dose Ordered Sig/Desean Route Start Time Stop Time Status Last Admin Sodium Chloride 1,000 ml @ 1,000 mls/hr Q1H ONCE IV 03/12/24 03:30 03/12/24 04:29 DC 03/12/24 04:07 Morphine Sulfate 4 mg ONCE ONCE IV 03/12/24 03:30 03/12/24 03:31 DC 03/12/24 04:34 Time of 1ST Reevaluation: 03:53 Reevaluation 1ST: Unchanged Patient Education/Counseling: Diagnosis, Treatment, Prognosis Family Education/Counseling: No Family Present Additional Information I reviewed the following notes from patient's past medical encounters: The following tests were ordered, and results were reviewed by me: CBC, CMP, lipase I discussed treatment and results with medical personnel and: patient Departure 1 Departure Time of Disposition: 05:31 (Patient presented with abdominal pain that was concerning for possible appendicits, gastritis, cholecystitis, colitis, gastroenteritis, sbo, or orther possible surgical emergency. Data: 1. I ordered and reviewed the result of at least 3 labs including a CBC, BMP, and Urinalysis. 2. I reviewed patient's old medical recordsRisk:This patient has a high risk of morbidity due to further diagnostic testing or treatment and may suffer from an acute abdominal process disorder. Workup reveals acute on chronic pancreatitis and patient should be admitted for further workup. and possible expert consultation. ) Impression: Primary Impression: Acute on chronic pancreatitis Disposition: ADMITTED INPATIENT Admit to: Med Surg Condition: Serious Critical Care Note Critical Care Time?: Yes Critical care comment: Intractable abdominal pain Authorized and Performed by: Ida Hartman MD Total critical care time: Approximately 33 minutes Due to a high probability of clinically significant, life threatening deterioration, the patient required my highest level of preparedness to intervene emergently and I personally spent this critical care time directly and personally managing the patient. This critical care time included obtaining a history; examining the patient; pulse oximetry; ordering and review of studies; arranging urgent treatment with development of a management plan; evaluation of patient's response to treatment; frequent reassessment; and, discussions with other providers. This critical care time was performed to assess and manage the high probability of imminent, life-threatening deterioration that could result in multi-organ failure. It was exclusive of separately billable procedures and treating other patients and teaching time. Please see my other sections and the rest of the note for further information on patient assessment and treatment. Stability Stability form required: No I personally scribed for IDA HARTMAN MD ([email or web address]) on 03/12/24 at 03:38. Electronically submitted by Juhi Ortega ([email or web address]). I personally scribed for IDA HARTMAN MD ([email or web address]) on 03/12/24 at 03:44. Electronically submitted by Juhi Ortega ([email or web address]). IDA HARTMAN MD Mar 12, 2024 03:38
[2024-03-12 03:47] LABS: Basophils # (auto) 0 10 ^3/uL (0-0.2); Basophils % (auto) 0.7 % (0.0-2.0); Eosinophils # (auto) 0.2 10 ^3/uL (0-0.8); Eosinophils % (auto) 3.5 % (0.0-7.0); Hematocrit 39.3 % (41.0-53.0); Hemoglobin 13.1 g/dL (13.5-17.5); Lymphocytes # (auto) 2.4 10 ^3/uL (0.4-5.4); Lymphocytes % (auto) 36.4 % (10.0-50.0); Mean Corpuscular Hemoglobin 32.6 pg (28.0-32.0); Mean Corpuscular Hgb Conc. 33.3 g/dL (32.0-36.0); Mean Corpuscular Volume 98.1 fL (80.0-100.0); Monocytes # (auto) 0.5 10 ^3/uL (0-1.3); Monocytes % (auto) 8.1 % (0.0-12.0); Neutrophils # (auto) 3.4 10 ^3/uL (1.6-8.6); Neutrophils % (auto) 51.3 % (37.0-80.0); Nucleated Red Blood Cells % 0.1 %; Platelet Count (auto) 381 10^3/uL (140-450); Red Blood Cells 4.01 10^6/uL (4.5-5.90); Red Cell Distribution Width 15.7 % (11.8-14.3); White Blood Cell 6.6 10^3/uL (4.4-10.8)
[2024-03-12] MEDS: SODIUM CHLORIDE 0.9% 1,000 ML IV ONE (04:07)
[2024-03-12 04:08] LABS: Alanine Aminotransferase 13 U/L (7-40); Albumin 4.3 g/dL (3.2-4.8); Anion Gap 3 (5-15); Aspartate Aminotransferase 14 U/L (13-40); Calcium 10.2 mg/dL (8.7-10.4); Carbon Dioxide 28 mmol/L (20-31); Chloride 104 mmol/L (98-107); Total Protein 7.5 g/dL (5.7-8.2)
[2024-03-12 04:11] LABS: Alkaline Phosphatase 117 U/L (46-116); Bilirubin, Total 0.2 mg/dL (0.2-1.0); Glucose 126 mg/dL (74-106); Sodium 135 mmol/L (136-145)
[2024-03-12 04:29] LABS: BUN/Creatinine Ratio 11.8 (10.0-20.0); Blood Urea Nitrogen 8 mg/dL (9-23)
[2024-03-12] MEDS: MORPHINE SULFATE 4 MG/ML SYR/VIAL IV ONE ×2 (04:34→06:39)
[2024-03-12 04:44] LABS: Lipase 103 U/L (12-53)
--- NOTE | 2024-03-12 07:12 | DVHHP2 ---
History of Present Illness Reason for Visit: abdominal pain History of Present Illness Aditya Auguste is a 54-year-old male with past medical history of asthma, hypotension, chronic pancreatitis, and chronic pain who presents to the ED for nausea and abdominal pain that radiates to his back x1 day. Patient reports that the pain is stabbing, 10/10 in nature, and constant. Patient states that he last had a meal yesterday night. Patient denies vomiting, diarrhea, chest pain, shortness of breath, fever, chills, headache, lightheadedness, and dizziness. Patient reports that he has pancreatic stones and that he sees his GI specialist at [place]. Patient reports that he recently saw his GI doctor at [facility] and they performed an ERCP but unfortunately was unsuccessful due to his anatomy. Patient reports that he has an appointment coming up in March for follow-up. Patient also reports that he is compliant with his medications. Pulmonary: Asthma Past Medical History Hypotension Chronic pancreatitis Chronic pain Past Surgical History: None Family History: None Smoke: <1 pack per day ALCOHOL: none Drugs: None Lives: Alone Domestic Violence: Neg Review of Systems Constitutional: No: Fever, Chills, Sweats, Weakness, Malaise, Other Eyes: No: Pain, Vision change, Conjunctivae inflammation, Eyelid inflammation, Other, Redness ENT: No: Ear pain, Ear discharge, Nose pain, Nose discharge, Nose congestion, Mouth pain, Mouth swelling, Throat pain, Throat swelling, Other Respiratory: No: Cough, Dry, Shortness of breath, SOB with excertion, Wheezing, Hemoptysis, Pleuritic Pain, Sputum, Wheezing, Other Cardiovascular: No: Chest Pain, Palpitations, Orthopnea, Paroxysmal Noc. Dyspnea, Edema, Lt Headedness, Other Gastrointestinal: Nausea, Abdominal Pain; No: Vomiting, Diarrhea, Constipation, Melena, Hematochezia, Other Genitourinary: No Dysuria, No Frequency, No Incontinence, No Hematuria, No Retention, No Other Musculoskeletal: No: other, neck pain, shoulder pain, arm pain, back pain, hand pain, leg pain, foot pain Skin: No: Rash, Lesions, Jaundice, Bruising, Other Neurological: No: Weakness, Numbness, Incoordination, Change in speech, Confusion, Seizures, Other Allergies: Coded Allergies: NO KNOWN ALLERGIES (Unverified , 02/16/24) Exam Vital Signs Vital Signs Date Time Temp Pulse Resp B/P (MAP) Pulse Ox O2 Delivery O2 Flow Rate FiO2 03/12/24 05:00 86 16 96/66 03/12/24 03:55 97.8 97 97.8 03/12/24 03:50 Room Air* 0 21 General Appearance: Alert, Oriented X3, Cooperative, No acute distress HEENT: Atraumatic, PERRLA, EOMI, Mucous membr. moist/pink Respiratory: Clear to auscultation, Normal air movement Cardiovascular: Regular rate, Normal S1, Normal S2 Abdominal: Normal bowel sounds, Soft, No hepatospenomegaly, No masses Extremities: No clubbing, No cyanosis, No edema, Normal pulses, No tenderness/swelling Skin: No rashes, No breakdown, No significant lesion Neuro: Normal gait, Normal speech, Strength at 5/5 X4 ext, Normal tone, Sensation intact Psych/Mental Status: Mental status NL, Mood NL Labs/Xrays Labs Test 03/12/24 03:30 Range/Units White Blood Count 6.6 4.4-10.8 10^3/uL Red Blood Count 4.01 L 4.5-5.90 10^6/uL Hemoglobin 13.1 L 13.5-17.5 g/dL Hematocrit 39.3 L 41.0-53.0 % Mean Corpuscular Volume 98.1 80.0-100.0 fL Mean Corpuscular Hemoglobin 32.6 H 28.0-32.0 pg Mean Corpuscular Hemoglobin Concent 33.3 32.0-36.0 g/dL Red Cell Distribution Width 15.7 H 11.8-14.3 % Platelet Count 381 140-450 10^3/uL Mean Platelet Volume 6.4 L 6.9-10.8 fL Neutrophils (%) (Auto) 51.3 37.0-80.0 % Lymphocytes (%) (Auto) 36.4 10.0-50.0 % Monocytes (%) (Auto) 8.1 0.0-12.0 % Eosinophils (%) (Auto) 3.5 0.0-7.0 % Basophils (%) (Auto) 0.7 0.0-2.0 % Neutrophils # (Auto) 3.4 1.6-8.6 10 ^3/uL Lymphocytes # (Auto) 2.4 0.4-5.4 10 ^3/uL Monocytes # (Auto) 0.5 0-1.3 10 ^3/uL Eosinophils # (Auto) 0.2 0-0.8 10 ^3/uL Basophils # (Auto) 0 0-0.2 10 ^3/uL Nucleated Red Blood Cells 0.1 % Sodium Level 135 L 136-145 mmol/L Potassium Level 4.0 3.5-5.1 mmol/L Chloride Level 104 98-107 mmol/L Carbon Dioxide Level 28 20-31 mmol/L Anion Gap 3 L 5-15 Blood Urea Nitrogen 8 L 9-23 mg/dL Creatinine 0.68 L 0.700-1.30 mg/dL Glomerular Filtration Rate Calc 110 >90 mL/min BUN/Creatinine Ratio 11.8 10.0-20.0 Serum Glucose 126 H 74-106 mg/dL Calcium Level 10.2 8.7-10.4 mg/dL Total Bilirubin 0.2 0.2-1.0 mg/dL Aspartate Amino Transferase (AST) 14 13-40 U/L Alanine Aminotransferase (ALT) 13 7-40 U/L Alkaline Phosphatase 117 H 46-116 U/L Total Protein 7.5 5.7-8.2 g/dL Albumin 4.3 3.2-4.8 g/dL Lipase 103 H 12-53 U/L Radiation Dose : 1. Abdomen/Pelvis: CTDIvol 5.1 mGy, DLP 264.5 mGy*cm. Findings: Evaluation of vasculature and solid organs is limited due to lack of intravenous contrast use. Lung Bases: Lung bases are clear. Visualized portions of the heart and pericardium are unremarkable. Liver: The liver is normal in size. No focal lesions. Gallbladder and Biliary Tree: The gallbladder is unremarkable. No intrahepatic or extrahepatic biliary ductal dilatation. Spleen: Unremarkable Pancreas: 1.7 x 1.6 x 1.5 cm cystic lesion in the head of the pancreas. Main pancreatic duct is dilated measuring up to 6 mm. Diffuse coarse calcifications throughout the pancreas. Adrenal Glands: Unremarkable Kidneys: Kidneys are unremarkable without calculi or hydronephrosis. GI tract: The stomach is grossly normal in appearance. No evidence of small bowel wall thickening or abnormal dilatation to suggest bowel obstruction. There is diffuse stool throughout the colon. The appendix is not visualized, however no inflammatory changes in the right lower quadrant to suggest acute appendicitis. Peritoneum/mesentery/retroperitoneum. No evidence of free intraperitoneal air. No ascites. No evidence of suspicious lymphadenopathy. Abdominal Wall: Unremarkable. Vasculature: The visualized abdominal aorta is normal in size and caliber. Evaluation of abdominal and pelvic vessels is limited due to lack of intravenous contrast. Urinary Bladder: Grossly unremarkable for degree of distention. Pelvic Organs: Unremarkable Musculoskeletal: No aggressive focal bony lesions, acute fractures or dislocation. IMPRESSION: 1. 1.7 cm cystic lesion in the head of the pancreas. Dilatation of the main pa ncreatic duct. Malignancy is not excluded. MRI of the abdomen without and with intravenous contrast using a pancreatic protocol with MRCP recommended for further evaluation. 2. Sequelae of chronic pancreatitis. No acute inflammatory changes in the abdome n. 3. Constipation. Assessment/Plan Assessment/Plan Assessment/Plan: Acute on chronic pancreatitis Intractable abdominal pain 2nd to pancreatitis CT A/P on 02/16/24 shows coarse pancreatic calcifications and dilated pancreatic duct with hypodense cystic mass lesion at the head of the pancreas (MRI to be determined by rounding team) IVf NPO GI cx to be considered by rounding team pain mgmt antiemetics - zofran GI PPX - sucralfate labs lipase CT A/P am labs Chronic pain syndrome Outpatient follow-up Chronic asthma with no exacerbation resp txs continue home Chronic tobacco use Counseled patient on substance abuse Offered nicotine patch declined FEN/PPX IVf NPO DVT ppx not indicated patient ambulating PUD PPX - sucralfate Discussed plan of care with patient and nurse Admit to med surge Home medications reconciled Plan discussed with: Patient My Orders Orders - NEYMAR GOULD Procedure Category Date Status Time Ct Ab Pel Wo Con-No CT 03/12/24 Logged Oral Or Iv 06:09 Date of Service: Mar 12, 2024 Billing Provider: NEYMAR GOULD Common Visit Codes: [id number] INP/OBS CARE (MOD) NEYMAR GOULD Mar 12, 2024 07:12
[2024-03-12] MEDS ORDERED: FOLI-119 PO (07:19)
[2024-03-12] MEDS ORDERED: MULT-443 PO (07:19)
[2024-03-12] MEDS ORDERED: IPRATROPIUM BROM 0.5 MG/2.5ML INH SOL NEB PRN (07:30)
[2024-03-12] MEDS ORDERED: ALBUTEROL SULF 2.5 MG/0.5ML(0.5%) NEB SOLN NEB PRN (07:30)
--- NOTE | 2024-03-12 07:40 | DVH ---
Exam: CT CT AB PEL WO CON-NO ORAL OR IV History: abd pain Comparison Study: CT of the abdomen pelvis dated 02/16/2024 Technique: Multidetector spiral CT of the abdomen and pelvis was performed from lung bases to pubic s ymphysis. Imaging was performed without intravenous contrast. Coronal and sagittal multiplanar refor mats were obtained from the axial data set by the technologist. Radiation Dose : 1. Abdomen/Pelvis: CTDIvol 5.1 mGy, DLP 264.5 mGy*cm. Findings: Evaluation of vasculature and solid organs is limited due to lack of intravenous contrast use. Lung Bases: Lung bases are clear. Visualized portions of the heart and pericardium are unremarkable. Liver: The liver is normal in size. No focal lesions. Gallbladder and Biliary Tree: The gallbladder is unremarkable. No intrahepatic or extrahepatic bilia ry ductal dilatation. Spleen: Unremarkable Pancreas: 1.7 x 1.6 x 1.5 cm cystic lesion in the head of the pancreas. Main pancreatic duct is dilat ed measuring up to 6 mm. Diffuse coarse calcifications throughout the pancreas. Adrenal Glands: Unremarkable Kidneys: Kidneys are unremarkable without calculi or hydronephrosis. GI tract: The stomach is grossly normal in appearance. No evidence of small bowel wall thickening or abnormal dilatation to suggest bowel obstruction. There is diffuse stool throughout the colon. The appendix is not visualized, however no inflammatory changes in the right lower quadrant to suggest ac gustavo appendicitis. Peritoneum/mesentery/retroperitoneum. No evidence of free intraperitoneal air. No ascites. No evidenc e of suspicious lymphadenopathy. Abdominal Wall: Unremarkable. Vasculature: The visualized abdominal aorta is normal in size and caliber. Evaluation of abdominal a nd pelvic vessels is limited due to lack of intravenous contrast. Urinary Bladder: Grossly unremarkable for degree of distention. Pelvic Organs: Unremarkable Musculoskeletal: No aggressive focal bony lesions, acute fractures or dislocation. IMPRESSION: 1. 1.7 cm cystic lesion in the head of the pancreas. Dilatation of the main pancreatic duct. Maligna ncy is not excluded. MRI of the abdomen without and with intravenous contrast using a pancreatic prot ocol with MRCP recommended for further evaluation. 2. Sequelae of chronic pancreatitis. No acute inflammatory changes in the abdomen. 3. Constipation.
[2024-03-12] MEDS: CREON 12000 UNIT PO SCH (08:00)
[2024-03-12] MEDS: AZITHROMYCIN 250 MG TAB PO SCH (09:35)
[2024-03-12] MEDS: ONDANSETRON HCL 4 MG/2 ML VIAL IV PRN (09:35)
[2024-03-12] MEDS: MAGNESIUM OXIDE 400 MG TAB PO SCH (09:35)
[2024-03-12] MEDS: SODIUM CHLORIDE 0.9% 1,000 ML IV SCH (09:36)
[2024-03-12] MEDS: MORPHINE SULFATE INJ 2 MG/ml SYRG IV PRN (09:37)
[2024-03-12] MEDS: ETHAMBUTOL HCL 800 MG PO SCH (09:50)
[2024-03-12] MEDS: RIFAMPIN 150 MG PO SCH (09:50)
[2024-03-12] MEDS: RIVAROXABAN 2.5 MG TAB PO SCH (10:00)
[2024-03-12 12:26] LABS: Urine Bacteria None Seen /hpf (None Seen)
[2024-03-12 12:48] LABS: Urine Blood Negative /uL (Negative); Urine Clarity Clear (Clear); Urine Color Yellow (Yellow); Urine Mucus FEW (None Seen); Urine Protein, UAD Negative (Negative); Urine Specific Gravity 1.023 (1.001-1.035); Urine Squamous Epithelial Cell None Seen /hpf (<5); Urine Urobilinogen Normal (Negative); Urine WBC <1 /hpf (0 - 3); Urine pH 6.5 (5.0-9.0)
--- NOTE | 2024-03-12 13:11 | DVHPN2 ---
Reviewed: Care Plan, H&P, Labs, Medications, Previous Orders, Radiology Changes from previous H/P or p: No Changes Eyes: No Pain, No Vision change, No Conjunctivae inflammation, No Eyelid inflammation, No Other, No Redness ENT: No Ear pain, No Ear discharge, No Nose pain, No Nose discharge, No Nose congestion, No Mouth pain, No Mouth swelling, No Throat pain, No Throat swelling, No Other Cardiovascular: No Chest Pain, No Palpitations, No Orthopnea, No Paroxysmal Noc. Dyspnea, No Edema, No Lt Headedness, No Other Respiratory: No Cough, No Dry, No Shortness of breath, No SOB with excertion, No Wheezing, No Hemoptysis, No Pleuritic Pain, No Sputum, No Other Gastrointestinal: Nausea; No Vomiting; Abdominal Pain; No Diarrhea, No Constipation, No Melena, No Hematochezia, No Other Genitourinary: No Dysuria, No Frequency, No Incontinence, No Hematuria, No Retention, No Other Musculoskeletal: No other, No neck pain, No shoulder pain, No arm pain, No back pain, No hand pain, No leg pain, No foot pain Skin: No Rash, No Lesions, No Jaundice, No Bruising, No Other Objective Vitals Vital Signs Date Time Temp Pulse Resp B/P (MAP) Pulse Ox O2 Delivery O2 Flow Rate FiO2 03/12/24 10:20 97.9 89 20 87/55 (66) 98 97.9 03/12/24 10:10 Room Air* 0 21 Intake/Output Intake and Output 03/12/24 07:00 Intake Total 1000 ml Balance 1000 ml Intake IV Total 1000 ml Medications Current Medications Medications Dose Ordered Sig/Desean Route Start Time Stop Time Status Last Admin Dose Admin Sodium Chloride 1,000 ml @ 100 mls/hr Q10H IV 03/12/24 06:15 03/12/24 09:36 100 MLS/HR Acetaminophen/ Hydrocodone Bitart 1 tab Q4HP PRN PO 03/12/24 06:15 Ondansetron HCl 4 mg Q4HP PRN IV 03/12/24 06:15 03/12/24 09:35 4 MG Morphine Sulfate 2 mg Q4HPRN PRN IV 03/12/24 06:15 03/12/24 09:37 2 MG Azithromycin 500 mg DAILY PO 03/12/24 10:00 03/12/24 09:35 500 MG Rivaroxaban 2.5 mg DAILY PO 03/12/24 10:00 Sucralfate 1 gm QIDACHS PO 03/12/24 12:00 Patient Own Medication 800 mg DAILY PO 03/12/24 10:00 Magnesium Oxide 400 mg DAILY PO 03/12/24 10:00 03/12/24 09:35 400 MG Patient Own Medication 150 mg DAILY PO 03/12/24 10:00 Patient Own Medication 12,000 TIDWM PO 03/12/24 08:00 Albuterol 2.5 mg Q4HPRN PRN NEB 03/12/24 07:30 Ipratropium [place] 0.5 mg Q4HPRN PRN NEB 03/12/24 07:30 Laboratory Results Laboratory Tests 03/12/24 03:30 Chemistry Test 03/12/24 03:30 Albumin 4.3 g/dL (3.2-4.8) Calcium Level 10.2 mg/dL (8.7-10.4) Total Protein 7.5 g/dL (5.7-8.2) Lipid panel Test 03/12/24 03:30 Lipase 103 U/L (12-53) H LFT Test 03/12/24 03:30 Alanine Aminotransferase (ALT) 13 U/L (7-40) Alkaline Phosphatase 117 U/L (46-116) H Aspartate Amino Transferase (AST) 14 U/L (13-40) Total Bilirubin 0.2 mg/dL (0.2-1.0) Urinalysis Test 03/12/24 12:00 Urine Color Yellow (Yellow) Urine Clarity Clear (Clear) Urine pH 6.5 (5.0-9.0) Urine Specific [place] 1.023 (1.001-1.035) Urine Protein Negative (Negative) Urine Ketones Negative (Negative) Urine Blood Negative /uL (Negative) Urine Nitrite Negative (Negative) Urine Bilirubin Negative (Negative) Urine Urobilinogen Normal mg/dL (Negative) Urine Leukocyte Esterase Negative /uL (Negative) Urine RBC 3 /hpf (0 - 3) Urine WBC <1 /hpf (0 - 3) Urine Squamous Epithelial Cells None seen /hpf (<5) Urine Bacteria None seen /hpf (None Seen) Urine Mucus Few (None Seen) Urine Glucose Normal mg/dL (Normal) Labs and/or images reviewed: Labs reviewed by me, Image(s) reviewed by me Assessment/Plan Assessment/Plan Acute on chronic pancreatitis lipase 103, pain medications IV fluids, consult for GI Dr. Carri Thomas 1.7 cm cystic lesion in the head of the pancreas. Dilatation of the main pancreatic duct. Malignancy is not excluded. MRI of the abdomen without and with intravenous contrast using a pancreatic protocol with MRCP recommended for further evaluation.; ordered Intractable abdominal pain secondary to pancreatitis Chronic pain syndrome Asthma Chronic current smoker: Counseled Hypertension Plan discussed with: Patient Date of Service: Mar 12, 2024 Billing Provider: FLORIDA BOWMAN MD Common Visit Codes: [id number] INP/OBS CARE(HIGH) FLORIDA BOWMAN MD Mar 12, 2024 13:11
[2024-03-12] MEDS: HYDROmorphone HCL 2 MG/ML VL/or syr IV PRN (13:46)
[2024-03-12] MEDS: SUCRALFATE 1 GM TAB PO SCH (14:10)
[2024-03-12] MEDS ORDERED: LORazepam 2MG/ML-1ML VIAL IV ONE (14:45)
[2024-03-12] MEDS: PANCREATIC ENZYMES 4200 UNIT CAP PO SCH (18:02)
[2024-03-13] VITALS (10 sets, daily range): BP systolic 92–104; BP diastolic 58–73; PULSE 83–102; RESP 16–18; TEMP 97.3–99; O2SAT 89–94
[2024-03-13] MEDS: HYDROcodone-ACET 5/325MG TAB PO PRN (00:36)
[2024-03-13 06:47] LABS: Basophils # (auto) 0 10 ^3/uL (0-0.2); Basophils % (auto) 0.8 % (0.0-2.0); Eosinophils # (auto) 0.2 10 ^3/uL (0-0.8); Eosinophils % (auto) 3.2 % (0.0-7.0); Hematocrit 36.3 % (41.0-53.0); Hemoglobin 12.2 g/dL (13.5-17.5); Lymphocytes # (auto) 2.2 10 ^3/uL (0.4-5.4); Lymphocytes % (auto) 40.6 % (10.0-50.0); Mean Corpuscular Hemoglobin 32.9 pg (28.0-32.0); Mean Corpuscular Hgb Conc. 33.7 g/dL (32.0-36.0); Mean Corpuscular Volume 97.8 fL (80.0-100.0); Monocytes # (auto) 0.5 10 ^3/uL (0-1.3); Monocytes % (auto) 8.6 % (0.0-12.0); Neutrophils # (auto) 2.5 10 ^3/uL (1.6-8.6); Neutrophils % (auto) 46.8 % (37.0-80.0); Nucleated Red Blood Cells % 0.1 %; Platelet Count (auto) 343 10^3/uL (140-450); Red Blood Cells 3.71 10^6/uL (4.5-5.90); Red Cell Distribution Width 15.4 % (11.8-14.3); White Blood Cell 5.4 10^3/uL (4.4-10.8)
[2024-03-13 06:49] LABS: Alanine Aminotransferase 12 U/L (7-40); Albumin 3.6 g/dL (3.2-4.8); Alkaline Phosphatase 103 U/L (46-116); Anion Gap 2 (5-15); Aspartate Aminotransferase 14 U/L (13-40); BUN/Creatinine Ratio 15.1 (10.0-20.0); Bilirubin, Total 0.3 mg/dL (0.2-1.0); Blood Urea Nitrogen 8 mg/dL (9-23); Calcium 9.5 mg/dL (8.7-10.4); Carbon Dioxide 25 mmol/L (20-31); Chloride 106 mmol/L (98-107); Glucose 68 mg/dL (74-106); Lipase 75 U/L (12-53); Potassium 4.2 mmol/L (3.5-5.1); Sodium 133 mmol/L (136-145); Total Protein 6.3 g/dL (5.7-8.2)
--- NOTE | 2024-03-13 10:28 | DVHPN2 ---
Reviewed: Care Plan, H&P, Labs, Medications, Previous Orders, Radiology Changes from previous H/P or p: No Changes Eyes: No Pain, No Vision change, No Conjunctivae inflammation, No Eyelid inflammation, No Other, No Redness ENT: No Ear pain, No Ear discharge, No Nose pain, No Nose discharge, No Nose congestion, No Mouth pain, No Mouth swelling, No Throat pain, No Throat swelling, No Other Cardiovascular: No Chest Pain, No Palpitations, No Orthopnea, No Paroxysmal Noc. Dyspnea, No Edema, No Lt Headedness, No Other Respiratory: No Cough, No Dry, No Shortness of breath, No SOB with excertion, No Wheezing, No Hemoptysis, No Pleuritic Pain, No Sputum, No Other Gastrointestinal: Nausea; No Vomiting; Abdominal Pain; No Diarrhea, No Constipation, No Melena, No Hematochezia, No Other Genitourinary: No Dysuria, No Frequency, No Incontinence, No Hematuria, No Retention, No Other Musculoskeletal: No other, No neck pain, No shoulder pain, No arm pain, No back pain, No hand pain, No leg pain, No foot pain Skin: No Rash, No Lesions, No Jaundice, No Bruising, No Other Objective Vitals Vital Signs Date Time Temp Pulse Resp B/P (MAP) Pulse Ox O2 Delivery O2 Flow Rate FiO2 03/13/24 10:13 88 18 103/69 03/13/24 08:43 98.2 90 98.2 03/13/24 08:00 Room Air* 0 21 Intake/Output Intake and Output 03/13/24 07:00 Intake Total 1000 ml Balance 1000 ml Intake Oral 0 ml IV Total 1000 ml # Voids 5 Medications Current Medications Medications Dose Ordered Sig/Desean Route Start Time Stop Time Status Last Admin Dose Admin Sodium Chloride 1,000 ml @ 100 mls/hr Q10H IV 03/12/24 06:15 03/13/24 02:02 100 MLS/HR Acetaminophen/ Hydrocodone Bitart 1 tab Q4HP PRN PO 03/12/24 06:15 03/13/24 08:51 1 TAB Ondansetron HCl 4 mg Q4HP PRN IV 03/12/24 06:15 03/12/24 09:35 4 MG Azithromycin 500 mg DAILY PO 03/12/24 10:00 03/13/24 10:14 500 MG Rivaroxaban 2.5 mg DAILY PO 03/12/24 10:00 03/13/24 10:14 2.5 MG Sucralfate 1 gm QIDACHS PO 03/12/24 12:00 03/13/24 06:34 1 GM Magnesium Oxide 400 mg DAILY PO 03/12/24 10:00 03/13/24 10:14 400 MG Patient Own Medication 150 mg DAILY PO 03/12/24 10:00 Albuterol 2.5 mg Q4HPRN PRN NEB 03/12/24 07:30 Ipratropium [place] 0.5 mg Q4HPRN PRN NEB 03/12/24 07:30 Hydromorphone HCl 2 mg Q4HPRN PRN IV 03/12/24 13:30 03/13/24 10:13 2 MG Ethambutol HCl 800 mg DAILY PO 03/13/24 15:00 Proteolytic Enzymes 12,600 unit TIDWM PO 03/12/24 18:00 03/12/24 18:02 12,600 UNIT Laboratory Results Laboratory Tests 03/13/24 04:46 Chemistry Test 03/13/24 04:46 Albumin 3.6 g/dL (3.2-4.8) Calcium Level 9.5 mg/dL (8.7-10.4) Total Protein 6.3 g/dL (5.7-8.2) Lipid panel Test 03/13/24 04:46 Lipase 75 U/L (12-53) H LFT Test 03/13/24 04:46 Alanine Aminotransferase (ALT) 12 U/L (7-40) Alkaline Phosphatase 103 U/L (46-116) Aspartate Amino Transferase (AST) 14 U/L (13-40) Total Bilirubin 0.3 mg/dL (0.2-1.0) Urinalysis Test 03/12/24 12:00 Urine Color Yellow (Yellow) Urine Clarity Clear (Clear) Urine pH 6.5 (5.0-9.0) Urine Specific [place] 1.023 (1.001-1.035) Urine Protein Negative (Negative) Urine Ketones Negative (Negative) Urine Blood Negative /uL (Negative) Urine Nitrite Negative (Negative) Urine Bilirubin Negative (Negative) Urine Urobilinogen Normal mg/dL (Negative) Urine Leukocyte Esterase Negative /uL (Negative) Urine RBC 3 /hpf (0 - 3) Urine WBC <1 /hpf (0 - 3) Urine Squamous Epithelial Cells None seen /hpf (<5) Urine Bacteria None seen /hpf (None Seen) Urine Mucus Few (None Seen) Urine Glucose Normal mg/dL (Normal) Labs and/or images reviewed: Labs reviewed by me, Image(s) reviewed by me Assessment/Plan Assessment/Plan Acute on chronic pancreatitis lipase 103, down to 75 pain medications IV fluids, consult for GI Dr. Carri Thomas 1.7 cm cystic lesion in the head of the pancreas. Dilatation of the main pancreatic duct. Malignancy is not excluded. MRI of the abdomen without and with intravenous contrast using a pancreatic protocol with MRCP recommended for further evaluation.; ordered Intractable abdominal pain secondary to pancreatitis Chronic pain syndrome Asthma Chronic current smoker: Counseled Hypertension Plan discussed with: Patient My Orders Orders - FLORIDA BOWMAN MD Procedure Category Date Status Time * Gi Dvh [employer] CONS 03/12/24 Transmitted 13:08 Mri Abd & Plevis W/Wo MRI 03/12/24 Logged Cont 13:10 Hydromorphone PHA 03/12/24 In Process Injection (Dilaudid 13:30 Date of Service: Mar 13, 2024 Billing Provider: FLORIDA BOWMAN MD Common Visit Codes: [id number] INP/OBS CARE(HIGH) FLORIDA BOWMAN MD Mar 13, 2024 10:28
[2024-03-13] MEDS ORDERED: GADOTERATE MEG 10 MMOL/20ml INJ (0.5MMOL/ml) IV ONE (11:26)
[2024-03-13] MEDS ORDERED: GADOTERATE MEG 7.5 MMOL/15ml INJ (0.5MMOL/ml) IV ONE (11:26)
[2024-03-13] MEDS ORDERED: LORazepam 2MG/ML-1ML VIAL IV ONE (11:30)
[2024-03-13] MEDS: LORazepam 2MG/ML-1ML VIAL IV ONE (11:31)
--- NOTE | 2024-03-13 12:37 | DVHINCON2 ---
GI Consult Consult Note GI consult note Date of Consultation: 03/13/2024 Chief Complaint: Chronic pancreatitis Referring Physician: Dr. Patrick Bowman H&P: 54-year-old male with PMH of asthma,, hypotension chronic pancreatitis and chronic pain presented to ED for nausea and abdominal pain Patient is still complaining of abdominal pain at this time which is eight on a 0-10 scale. Patient usually takes about 10 Percocet pills every day per patient. Patient admits to about 40-50 lb weight loss in the past four years Patient has history of heavy alcohol, quit four years ago Patient follows up with GI at [facility]. And has a follow-up appointment in March 2024 Patient is status post ERCP August 2023, which was unsuccessful due to anatomy Patient also asking for more pain medications at this time Past Medical History: Hypotension, chronic pancreatitis, chronic pain Past Surgical History: Denies Social History: + smoking, no drinking ETOH Family History: Noncontributory Review of Systems: Constitutional: no fever, chill, weight loss HEENT: no eye pain, no hearing loss, no oral lesion, no scleral icterus Heart: no chest pain, no chest pressure Lung: no cough, no dyspnea with exertion Abdomen: see HPI Physical exam: General: NAD, AAOX3 Chest: lung knox clear to auscultation Heart: RRR, no murmur Abdomen: Moderate upper abdominal tenderness to palpation, +BS Labs: Labs Test 03/13/24 04:46 03/12/24 12:00 Range/Units White Blood Count 5.4 4.4-10.8 10^3/uL Red Blood Count 3.71 L 4.5-5.90 10^6/uL Hemoglobin 12.2 L 13.5-17.5 g/dL Hematocrit 36.3 L 41.0-53.0 % Mean Corpuscular Volume 97.8 80.0-100.0 fL Mean Corpuscular Hemoglobin 32.9 H 28.0-32.0 pg Mean Corpuscular Hemoglobin Concent 33.7 32.0-36.0 g/dL Red Cell Distribution Width 15.4 H 11.8-14.3 % Platelet Count 343 140-450 10^3/uL Mean Platelet Volume 7.0 6.9-10.8 fL Neutrophils (%) (Auto) 46.8 37.0-80.0 % Lymphocytes (%) (Auto) 40.6 10.0-50.0 % Monocytes (%) (Auto) 8.6 0.0-12.0 % Eosinophils (%) (Auto) 3.2 0.0-7.0 % Basophils (%) (Auto) 0.8 0.0-2.0 % Neutrophils # (Auto) 2.5 1.6-8.6 10 ^3/uL Lymphocytes # (Auto) 2.2 0.4-5.4 10 ^3/uL Monocytes # (Auto) 0.5 0-1.3 10 ^3/uL Eosinophils # (Auto) 0.2 0-0.8 10 ^3/uL Basophils # (Auto) 0 0-0.2 10 ^3/uL Nucleated Red Blood Cells 0.1 % Sodium Level 133 L 136-145 mmol/L Potassium Level 4.2 3.5-5.1 mmol/L Chloride Level 106 98-107 mmol/L Carbon Dioxide Level 25 20-31 mmol/L Anion Gap 2 L 5-15 Blood Urea Nitrogen 8 L 9-23 mg/dL Creatinine 0.53 L 0.700-1.30 mg/dL Glomerular Filtration Rate Calc 118 >90 mL/min BUN/Creatinine Ratio 15.1 10.0-20.0 Serum Glucose 68 L 74-106 mg/dL Calcium Level 9.5 8.7-10.4 mg/dL Total Bilirubin 0.3 0.2-1.0 mg/dL Aspartate Amino Transferase (AST) 14 13-40 U/L Alanine Aminotransferase (ALT) 12 7-40 U/L Alkaline Phosphatase 103 46-116 U/L Total Protein 6.3 5.7-8.2 g/dL Albumin 3.6 3.2-4.8 g/dL Lipase 75 H 12-53 U/L Urine Color Yellow Yellow Urine Clarity Clear Clear Urine pH 6.5 5.0-9.0 Urine Specific [place] 1.023 1.001-1.035 Urine Protein Negative Negative Urine Ketones Negative Negative Urine Blood Negative Negative /uL Urine Nitrite Negative Negative Urine Bilirubin Negative Negative Urine Urobilinogen Normal Negative mg/dL Urine Leukocyte Esterase Negative Negative /uL Urine RBC 3 0 - 3 /hpf Urine WBC <1 0 - 3 /hpf Urine Squamous Epithelial Cells None seen <5 /hpf Urine Bacteria None seen None Seen /hpf Urine Mucus Few None Seen Urine Glucose Normal Normal mg/dL Imaging: CT abdomen pelvis IMPRESSION: 1. 1.7 cm cystic lesion in the head of the pancreas. Dilatation of the main pancreatic duct. Malignancy is not excluded. MRI of the abdomen without and with intravenous contrast using a pancreatic protocol with MRCP recommended for further evaluation. 2. Sequelae of chronic pancreatitis. No acute inflammatory changes in the abdomen. 3. Constipation. Assessment: Acute on chronic pancreatitis Chronic pain syndrome Constipation Plan: Discussed with Dr. Thomas MRCP pending CA 19-9, lipase in a.m. Recommend EUS on an outpatient basis at [facility] Supportive care recommended at this time Discussed plan with patient and RN Thank you for this consult Date of Service: Mar 13, 2024 Billing Provider: TIGRE BOWMAN Common Visit Codes: CONSULT ONLY Consultation Codes: [id number] CONSULT <45MIN TIGRE BOWMAN Mar 13, 2024 12:37
--- NOTE | 2024-03-13 13:36 | DVH ---
CLINICAL HISTORY: 54 years old, Male; pancreatic mass. TECHNIQUE: Multi sequence multi planar MRI images of the abdomen were obtained prior to and after th e uneventful administration of 20 mL Clariscan contrast. Heavily T2 weighted MRCP images were obtaine d. 3D MRCP images were created. COMPARISON: CT dated 03/12/2024. Prior CT dated 02/16/2024. FINDINGS: Motion artifact limits evaluation. Abnormal, irregular, dilated main pancreatic duct, most prominent involving the pancreatic head and neck, measuring up to 1.3 cm in greatest diameter, exten ding anterior to the abdominal aorta. Extensive pancreatic calcifications are better demonstrated on recent CT exam. There is a cystic structure adjacent to the pancreatic head and uncinate process sarah uring up to 1.3 cm in AP dimension, 2.3 cm in transverse dimension, and 2.7 cm in craniocaudal dimens ion, likely pseudocyst. No associated postcontrast enhancement is seen in this cystic structure. No v isualized mural nodule. No solid pancreatic mass identified. Smaller cystic structures seen more ante riorly along the pancreatic neck region measuring up to 1.2 cm 0.8 cm, respectively, with no enhancem ent on the multiphase postcontrast images. No gallstones visualized in the gallbladder. Common bile duct measures up to 8.5 mm in diameter. No f illing defect or stricture identified within the common bile duct on MRCP images. The liver, spleen, adrenal glands, and kidneys appear unremarkable given the limitations of the examination due to motio n artifact. No abdominal aortic aneurysm. IMPRESSION: 1. Motion limited study. Cystic structures adjacent to the pancreas as described above. Possibly pse udocysts in the appropriate clinical setting, if the patient has a clinical history of chronic pancre atitis. Patient reportedly has a history of pancreatic cancer based on clinical indication for the CT of the abdomen and pelvis dated 02/16/2024. Given this history, cystic neoplasm not excluded. Corre lation with previous outside imaging would be helpful to further characterize the stability of the fi ndings on today's exam. Otherwise, EUS/FNA could be considered. 2. Dilated main pancreatic duct measuring up to 1.3 cm in diameter. 3. Mildly prominent common bile duct measuring up to 0.85 cm.
[2024-03-13] MEDS: ETHAMBUTOL HCL 400 MG TAB PO SCH (15:46)
[2024-03-14] VITALS (9 sets, daily range): BP systolic 103–126; BP diastolic 60–93; PULSE 62–94; RESP 17–18; TEMP 97.2–98.2; O2SAT 92–97
--- NOTE | 2024-03-14 10:45 | DVHPN2 ---
Reviewed: Care Plan, H&P, Labs, Medications, Previous Orders, Radiology Changes from previous H/P or p: No Changes Eyes: No Pain, No Vision change, No Conjunctivae inflammation, No Eyelid inflammation, No Other, No Redness ENT: No Ear pain, No Ear discharge, No Nose pain, No Nose discharge, No Nose congestion, No Mouth pain, No Mouth swelling, No Throat pain, No Throat swelling, No Other Cardiovascular: No Chest Pain, No Palpitations, No Orthopnea, No Paroxysmal Noc. Dyspnea, No Edema, No Lt Headedness, No Other Respiratory: No Cough, No Dry, No Shortness of breath, No SOB with excertion, No Wheezing, No Hemoptysis, No Pleuritic Pain, No Sputum, No Other Gastrointestinal: Nausea; No Vomiting; Abdominal Pain; No Diarrhea, No Constipation, No Melena, No Hematochezia, No Other Genitourinary: No Dysuria, No Frequency, No Incontinence, No Hematuria, No Retention, No Other Musculoskeletal: No other, No neck pain, No shoulder pain, No arm pain, No back pain, No hand pain, No leg pain, No foot pain Skin: No Rash, No Lesions, No Jaundice, No Bruising, No Other Objective Vitals Vital Signs Date Time Temp Pulse Resp B/P (MAP) Pulse Ox O2 Delivery O2 Flow Rate FiO2 03/14/24 09:33 95 Room Air 0.0 03/14/24 09:33 21 03/14/24 09:00 98.0 71 17 118/73 (88) 98.0 Intake/Output Intake and Output 03/14/24 07:00 Intake Total 1250 ml Output Total 650 ml Balance 600 ml Intake Oral 250 ml IV Total 1000 ml Output Urine Total 650 ml Stool Total 0 ml # Voids 4 Medications Current Medications Medications Dose Ordered Sig/Desean Route Start Time Stop Time Status Last Admin Dose Admin Sodium Chloride 1,000 ml @ 100 mls/hr Q10H IV 03/12/24 06:15 03/13/24 02:02 100 MLS/HR Acetaminophen/ Hydrocodone Bitart 1 tab Q4HP PRN PO 03/12/24 06:15 03/14/24 01:51 1 TAB Ondansetron HCl 4 mg Q4HP PRN IV 03/12/24 06:15 03/12/24 09:35 4 MG Azithromycin 500 mg DAILY PO 03/12/24 10:00 03/14/24 08:52 500 MG Rivaroxaban 2.5 mg DAILY PO 03/12/24 10:00 03/14/24 08:53 2.5 MG Sucralfate 1 gm QIDACHS PO 03/12/24 12:00 03/14/24 06:33 1 GM Magnesium Oxide 400 mg DAILY PO 03/12/24 10:00 03/14/24 08:52 400 MG Patient Own Medication 150 mg DAILY PO 03/12/24 10:00 Albuterol 2.5 mg Q4HPRN PRN NEB 03/12/24 07:30 Ipratropium [place] 0.5 mg Q4HPRN PRN NEB 03/12/24 07:30 Hydromorphone HCl 2 mg Q4HPRN PRN IV 03/12/24 13:30 03/14/24 06:34 2 MG Ethambutol HCl 800 mg DAILY PO 03/13/24 15:00 03/14/24 08:52 800 MG Proteolytic Enzymes 12,600 unit TIDWM PO 03/12/24 18:00 03/12/24 18:02 12,600 UNIT Laboratory Results Laboratory Tests 03/13/24 04:46 Lipid panel Test 03/14/24 05:38 Lipase 90 U/L (12-53) H Urinalysis Test 03/12/24 12:00 Urine Color Yellow (Yellow) Urine Clarity Clear (Clear) Urine pH 6.5 (5.0-9.0) Urine Specific [place] 1.023 (1.001-1.035) Urine Protein Negative (Negative) Urine Ketones Negative (Negative) Urine Blood Negative /uL (Negative) Urine Nitrite Negative (Negative) Urine Bilirubin Negative (Negative) Urine Urobilinogen Normal mg/dL (Negative) Urine Leukocyte Esterase Negative /uL (Negative) Urine RBC 3 /hpf (0 - 3) Urine WBC <1 /hpf (0 - 3) Urine Squamous Epithelial Cells None seen /hpf (<5) Urine Bacteria None seen /hpf (None Seen) Urine Mucus Few (None Seen) Urine Glucose Normal mg/dL (Normal) Labs and/or images reviewed: Labs reviewed by me, Image(s) reviewed by me Assessment/Plan Assessment/Plan Acute on chronic pancreatitis lipase 103, down to 75 pain medications IV fluids, consult for GI Dr. Carri Thomas 1.7 cm cystic lesion in the head of the pancreas. Dilatation of the main pancreatic duct 0.3cm . 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 Intractable abdominal pain secondary to pancreatitis Chronic pain syndrome Asthma Chronic current smoker: Counseled Hypertension CA 19-9 pending Plan discussed with: Patient My Orders Orders - FLORIDA BOWMAN MD Procedure Category Date Status Time Mri Abdomen W And Wo MRI 03/13/24 Resulted Date of Service: Mar 14, 2024 Billing Provider: FLORIDA BOWMAN MD Common Visit Codes: [id number] INP/OBS CARE(HIGH) FLORIDA BOWMAN MD Mar 14, 2024 10:45
--- NOTE | 2024-03-14 22:24 | DVHPN2 ---
Progress Note - Dictate Date Seen: Mar 14, 2024 Medical Necessity Reason Pt with a Central, PICC or Fol: No Subjective No new complaints Patient still has abdominal discomfort mostly chronic Mild and patient in lipase which has gone up to 90 today vital signs Vital Sign Date Time Temp Pulse Resp B/P (MAP) Pulse Ox O2 Delivery O2 Flow Rate FiO2 03/14/24 21:19 76 18 107/65 03/14/24 21:00 98.2 94 98.2 03/14/24 18:43 Room Air* 0 21 Total Intake and Output 03/13/24 03/13/24 03/14/24 15:00 23:00 07:00 Intake Total 1250 ml 0 ml Output Total 0 ml 650 ml Balance 1250 ml -650 ml medications Current Medications Medications Dose Ordered Sig/Desean Route Start Time Stop Time Status Last Admin Dose Admin Sodium Chloride 1,000 ml @ 100 mls/hr Q10H IV 03/12/24 06:15 03/14/24 13:06 100 MLS/HR Acetaminophen/ Hydrocodone Bitart 1 tab Q4HP PRN PO 03/12/24 06:15 03/14/24 01:51 1 TAB Ondansetron HCl 4 mg Q4HP PRN IV 03/12/24 06:15 03/12/24 09:35 4 MG Azithromycin 500 mg DAILY PO 03/12/24 10:00 03/14/24 08:52 500 MG Rivaroxaban 2.5 mg DAILY PO 03/12/24 10:00 03/14/24 08:53 2.5 MG Sucralfate 1 gm QIDACHS PO 03/12/24 12:00 03/14/24 21:20 1 GM Magnesium Oxide 400 mg DAILY PO 03/12/24 10:00 03/14/24 08:52 400 MG Patient Own Medication 150 mg DAILY PO 03/12/24 10:00 Albuterol 2.5 mg Q4HPRN PRN NEB 03/12/24 07:30 Ipratropium [place] 0.5 mg Q4HPRN PRN NEB 03/12/24 07:30 Hydromorphone HCl 2 mg Q4HPRN PRN IV 03/12/24 13:30 03/14/24 20:49 2 MG Ethambutol HCl 800 mg DAILY PO 03/13/24 15:00 03/14/24 08:52 800 MG Proteolytic Enzymes 12,600 unit TIDWM PO 03/12/24 18:00 03/12/24 18:02 12,600 UNIT objective General: NAD, AAOX3, cachectic male Chest: lung knox clear to auscultation Heart: RRR, no murmur Abdomen: Moderate upper abdominal tenderness to palpation, +BS Extremities without clubbing cyanosis or edema laboratory and microbiology Laboratory Tests 03/13/24 04:46 Test 03/13/24 04:46 Range/Units Serum Glucose 68 L 74-106 mg/dL MRI PANCREAS IMPRESSION: 1. Motion limited study. Cystic structures adjacent to the pancreas as described above. Possibly pseudocysts in the appropriate clinical setting, if the patient has a clinical history of chronic pancreatitis. Patient reportedly has a history of pancreatic cancer based on clinical indication for the CT of the abdomen and pelvis dated 02/16/2024. Given this history, cystic neoplasm not excluded. Correlation with previous outside imaging would be helpful to further characterize the stability of the findings on today's exam. Otherwise, EUS/FNA could be considered. 2. Dilated main pancreatic duct measuring up to 1.3 cm in diameter. 3. Mildly prominent common bile duct measuring up to 0.85 cm. Problems(with codes): (1) Acute on chronic pancreatitis (2) Chronic pancreatitis (3) Intractable abdominal pain (4) Pancreatic mass (5) Weakness Prognosis Assessment plan Clear liquid diet Monitor labs IV fluid hydration Patient has upcoming appointments in March both for pulmonary and GI Patient will need an outpatient elective endoscopic ultrasound with possible FNA of pancreatic cyst CA 19-9 Pain control I will follow up patient with you Plan discussed with: Patient GISELLE ALY MD Mar 14, 2024 22:24
[2024-03-15 01:00] VITALS: BP 112/69; PULSE 86; RESP 18; TEMP 98.1; O2SAT 92
[2024-03-15 05:00] VITALS: BP 111/60; PULSE 59; RESP 20; TEMP 98.5; O2SAT 98
[2024-03-15 06:57] VITALS: O2SAT 90
[2024-03-15 08:10] VITALS: PULSE 68; RESP 18; O2SAT 97
[2024-03-15 09:00] VITALS: BP 108/66; PULSE 66; RESP 18; TEMP 97.7; O2SAT 90
--- NOTE | 2024-03-15 12:19 | DVHDS2 ---
Discharge Summary Date of Admission Mar 12, 2024 at 06:10 Date of Discharge: Mar 15, 2024 Admitting Diagnosis Abdominal pain Wounds: None Labs/Diagnostic Data: Laboratory Results Test 03/14/24 05:38 03/13/24 04:46 03/12/24 12:00 Lipase 90 U/L (12-53) CA 19-9 Antigen 28 U/mL (0-35) White Blood Count 5.4 10^3/uL (4.4-10.8) Red Blood Count 3.71 10^6/uL (4.5-5.90) Hemoglobin 12.2 g/dL (13.5-17.5) Hematocrit 36.3 % (41.0-53.0) Mean Corpuscular Volume 97.8 fL (80.0-100.0) Mean Corpuscular Hemoglobin 32.9 pg (28.0-32.0) Mean Corpuscular Hemoglobin Concent 33.7 g/dL (32.0-36.0) Red Cell Distribution Width 15.4 % (11.8-14.3) Platelet Count 343 10^3/uL (140-450) Mean Platelet Volume 7.0 fL (6.9-10.8) Neutrophils (%) (Auto) 46.8 % (37.0-80.0) Lymphocytes (%) (Auto) 40.6 % (10.0-50.0) Monocytes (%) (Auto) 8.6 % (0.0-12.0) Eosinophils (%) (Auto) 3.2 % (0.0-7.0) Basophils (%) (Auto) 0.8 % (0.0-2.0) Neutrophils # (Auto) 2.5 10 ^3/uL (1.6-8.6) Lymphocytes # (Auto) 2.2 10 ^3/uL (0.4-5.4) Monocytes # (Auto) 0.5 10 ^3/uL (0-1.3) Eosinophils # (Auto) 0.2 10 ^3/uL (0-0.8) Basophils # (Auto) 0 10 ^3/uL (0-0.2) Nucleated Red Blood Cells 0.1 % Sodium Level 133 mmol/L (136-145) Potassium Level 4.2 mmol/L (3.5-5.1) Chloride Level 106 mmol/L (98-107) Carbon Dioxide Level 25 mmol/L (20-31) Anion Gap 2 (5-15) Blood Urea Nitrogen 8 mg/dL (9-23) Creatinine 0.53 mg/dL (0.700-1.30) Glomerular Filtration Rate Calc 118 mL/min (>90) BUN/Creatinine Ratio 15.1 (10.0-20.0) Serum Glucose 68 mg/dL (74-106) Calcium Level 9.5 mg/dL (8.7-10.4) Total Bilirubin 0.3 mg/dL (0.2-1.0) Aspartate Amino Transferase (AST) 14 U/L (13-40) Alanine Aminotransferase (ALT) 12 U/L (7-40) Alkaline Phosphatase 103 U/L (46-116) Total Protein 6.3 g/dL (5.7-8.2) Albumin 3.6 g/dL (3.2-4.8) Urine Color Yellow (Yellow) Urine Clarity Clear (Clear) Urine pH 6.5 (5.0-9.0) Urine Specific [place] 1.023 (1.001-1.035) Urine Protein Negative (Negative) Urine Ketones Negative (Negative) Urine Blood Negative /uL (Negative) Urine Nitrite Negative (Negative) Urine Bilirubin Negative (Negative) Urine Urobilinogen Normal mg/dL (Negative) Urine Leukocyte Esterase Negative /uL (Negative) Urine RBC 3 /hpf (0 - 3) Urine WBC <1 /hpf (0 - 3) Urine Squamous Epithelial Cells None seen /hpf (<5) Urine Bacteria None seen /hpf (None Seen) Urine Mucus Few (None Seen) Urine Glucose Normal mg/dL (Normal) Other Laboratory Tests 03/13/24 04:46 Brief Hx & Hospital Course: 54-year-old male with a history of chronic pain syndrome asthma chronic current smoker hypertension chronic recurring pancreatitis came in complaining of abdominal pain. Lipase was slightly elevated 103 diagnosed with a mild pancreatitis MRCP showed 1.7 cm cystic lesion in the head of the pancreas and dilatation of the main pancreatic duct seizures as words. Seen by GI Dr. Carri Thomas advised outpatient endoscopy and biopsy of the pancreatic cyst. Patient feels better and discharged home on [place] for the pain he will follow up with his GI Dr at [facility] with the ERCP and biopsy. CA 19-9 normal Consults/Reason for consult GI Dr. Carri Thomas Operations or Procedures CT abdomen pelvis without contrast Condition at Discharge: Poor Final Diagnosis/Problems List Acute on chronic pancreatitis lipase 103, down to 75 pain medications IV fluids, consult for GI Dr. Carri Thomas 1.7 cm cystic lesion in the head of the pancreas. Dilatation of the main pancreatic duct 0.3cm . 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 Intractable abdominal pain secondary to pancreatitis Chronic pain syndrome Asthma Chronic current smoker: Counseled Hypertension CA 19-9 pending Discharge Disposition: Home Discharge Instruct/Medications Diet: Cardiac 2g Na,low cholest Activity: Light activity Follow Up/Referral: Follow up with your manager transport at [facility] for ERCP and biopsy of the pancreatic cyst Resume all previous home medications Medications: [place] Transmitted to the pharmacy 35 (Time taken for discharge summary 35 minutes) Discharge Statement: "Patient was advised to return to the ER or call 911 if any headaches, dizziness, shortness of breath, chest pain, abdominal pain, bleeding, fevers, or worsening of medical condition. Patient was counseled about treatment plan, medications, possible side effects, patientverbalized understanding. All questions were answered to the best of my ability. This discharge took greater then 30 minutes in planning, reviewing documentation, counseling the patient, and discussing with other team members." ASSESSMENT ASSESSMENT Hospital Course Improved Assessment Acute on chronic pancreatitis lipase 103, down to 75 pain medications IV fluids, consult for GI Dr. Carri Thomas 1.7 cm cystic lesion in the head of the pancreas. Dilatation of the main pancreatic duct 0.3cm . 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
[2024-03-15 13:14] VITALS: BP 106/69; PULSE 72; RESP 16; TEMP 36.5; O2SAT 93
[2024-03-15] MEDS ORDERED: HYDR-4902 PO (13:34)
--- NOTE | 2024-03-15 16:04 | DVHPN2 ---
Progress Note - Dictate Date Seen: Mar 15, 2024 (Late entry Time of visit 2:00 p.m.) Medical Necessity Reason Pt with a Central, PICC or Fol: No Subjective No new complaints Patient still has abdominal discomfort mostly chronic Lipase 90, CA 19-9 normal vital signs Vital Sign Date Time Temp Pulse Resp B/P (MAP) Pulse Ox O2 Delivery O2 Flow Rate FiO2 03/15/24 13:14 36.5 72 16 93 03/15/24 11:47 106/69 03/15/24 08:10 Room Air* 0 21 Total Intake and Output 03/14/24 03/14/24 03/15/24 15:00 23:00 07:00 Intake Total 1000 ml 700 ml 1250 ml Output Total 0 ml Balance 1000 ml 700 ml 1250 ml medications Current Medications Medications Dose Ordered Sig/Desean Route Start Time Stop Time Status Last Admin Dose Admin Albuterol 2.5 mg Q4HPRN PRN NEB 03/12/24 07:30 Cancel Ipratropium [place] 0.5 mg Q4HPRN PRN NEB 03/12/24 07:30 Cancel objective General: NAD, AAOX3, cachectic male Chest: lung [place] clear to auscultation Heart: RRR, no murmur Abdomen: Moderate upper abdominal tenderness to palpation, +BS Extremities without clubbing cyanosis or edema laboratory and microbiology Laboratory Tests 03/13/24 04:46 Test 03/13/24 04:46 Range/Units Serum Glucose 68 L 74-106 mg/dL Problems(with codes): (1) Intractable abdominal pain (2) Pancreatic mass (3) Weakness (4) Chronic pancreatitis (5) Acute on chronic pancreatitis Prognosis PLAN Discharge planning in progress Patient has upcoming appointments in March both for pulmonary and GI Patient will need an outpatient elective endoscopic ultrasound with possible FNA of pancreatic cyst Advance diet as tolerated Pain control Plan discussed with: Patient GISELLE ALY MD Mar 15, 2024 16:04
== END 2024-03-15 14:36 | disposition home or self-care (01) | DRG 282 ==
LOC: ER 02:40 → OVERFLOW 06:10 → WEST WING 10:00
PROVIDERS: ATTEND Family Medicine
DX: K85.90 Acute pancreatitis without necrosis or infection, unspecified (principal); F17.200 Nicotine dependence, unspecified, uncomplicated; G89.4 Chronic pain syndrome; I10 Essential (primary) hypertension; J45.909 Unspecified asthma, uncomplicated; K59.00 Constipation, unspecified; K86.1 Other chronic pancreatitis; K86.2 Cyst of pancreas; Z85.07 Personal history of malignant neoplasm of pancreas
CPT/HCPCS: 36415; 74176; 74183; 80053; 81001; 83690; 85025; 86301; 96361; 96374; 96375; 99291; G0378; J2405

== ENCOUNTER 2024-03-18 11:29 | Emergency (ER) | payer MEDICAID ==
[~2024-03-18] VITALS: Ht 167.6 cm; Wt 50.4 kg
[~2024-03-18 11:29] MED LIST changes: +FOLI-119 PO; +HYDR-4902 PO; +MULT-443 PO
--- NOTE | 2024-03-18 12:53 | ED.PDOC ---
GI ASSESSMENT HPI Comments 54Y M with PMHx asthma and pancreatitis presents to ED for chief complaint abd pain x9hrs with nausea and vomiting. Abd pain is diffuse and radiates to the back. Pt states he has had pancreatitis for 4 years. Pt was discharged from [facility] on 03/15/2024 and 02/18/2024 for dx acute on chronic pancreatitis. Pt was also seen at [facility] ER on 03/08/2024 for dx chronic pancreatitis. Pt was prescribed [place] after last discharge but states his daughter took the medication in her car. Per pt, he is being f/u by [facility] and is awaiting surgery. Chief Complaint: Abdominal Pain Time Seen by MD: 12:39 Primary Care Provider: DAWN Reviewed Notes: Nurses Notes, Medications, Allergies Allergies: Coded Allergies: NO KNOWN ALLERGIES (Unverified , 02/16/24) Home Meds Active Scripts Hydrocodone-Acetaminophen (Hydrocodone Bitartrate/AC 5-325 mg) 1 Tab Tab, 1 TAB PO QID PRN, #30 TAB Prov:FLORIDA BOWMAN MD 03/15/24 Oxycodone W/ Acetaminophen (Percocet 5/325MG) 1 Tab Tb, 1 TAB PO QID for 5 Days, #20 TAB Prov:BERENICE MANNING NP 02/18/24 Reported Medications Folic Acid (Folic Acid) 1 Mg Tab, 1 TAB PO DAILY 03/12/24 Multiple Vitamin (One-Daily Multi-Vitamin) 1 Tab Tab, 1 TAB PO DAILY 03/12/24 Pancreatic Enzymes (Creon) 12,000 Unt Cap, PO 02/17/24 Sucralfate (Sucralfate) 1 Gm Tab, 1 TAB PO QID 02/16/24 Rivaroxaban (Xarelto) 2.5 Mg Tab, PO 02/16/24 Magnesium Oxide (True Magnesium Oxide) 400 Mg Tab, 1 TAB PO DAILY 02/16/24 Ethambutol Hcl (Ethambutol Hcl) 100 Mg Tab, 800 MG PO DAILY 02/16/24 Rifampin (Rifampin) 150 Mg Cap, 150 MG PO DAILY 02/16/24 Azithromycin (Azithromycin) 250 Mg Tab, 500 MG PO DAILY 02/16/24 Information Source: Patient Mode of Arrival: Ambulatory Timing: Hours Duration: Since onset Quality: Sharp Vomitus: Watery Stool: Normal Severity: Mild Recent: None Recent Hx of: Other Pain Location: Diffuse Modifying Factors: Nothing Associated sign and symptoms: Nausea, Vomiting, Abdominal Pain Past Medical History PAST MEDICAL HISTORY: Asthma, Cancer Past Medical History (Other): pancreatitis Surgical History: Denies all surgeries Family History Family History: Unknown Social History Smoker: Non-Smoker Alcohol: Sober Drugs: Denies Drug Use Lives In: Home Constitutional: denies: chills, diaphoresis, fatigue, fever, malaise, sweats, weakness, others EENTM: denies: blurred vision, double vision, ear bleeding, ear discharge, ear drainage, ear pain, ear ringing, eye pain, eye redness, hearing loss, mouth pain, mouth swelling, nasal discharge, nose bleeding, nose congestion, nose pain, photophobia, tearing, throat pain, throat swelling, voice changes, others Respiratory: denies: cough, hemoptysis, orthopnea, SOB at rest, shortness of breath, SOB with excertion, stridor, wheezing, others Cardiovascular: denies: chest pain, dizzy spells, diaphoresis, Dyspnea on exertion, edema, irregular heart beat, left arm pain, lightheadedness, palpitations, PND, syncope, others Gastrointestinal: reports: abdominal pain, nausea, vomiting; denies: abdomen distended, blood streaked bowels, constipated, diarrhea, dysphagia, difficulty swallowing, hematemesis, melena, poor appetite, poor fluid intake, rectal bleeding, rectal pain, others Genitourinary: denies: burning, dysuria, flank pain, frequency, hematuria, incontinence, penile discharge, penile sore, pain, testicle pain, testicle swelling, urgency, others Neurological: denies: dizziness, fainting, headache, left sided numbness, left sided weakness, numbness, paresthesia, pre-existing deficit, right sided numbness, right sided weakness, seizure, speech problems, tingling, tremors, weakness, others Musculoskeletal: denies: back pain, gout, joint pain, joint swelling, muscle pain, muscle stiffness, neck pain, others Integumetry: denies: bruises, change in color, change in hair/nails, dryness, laceration, lesions, lumps, rash, wounds, others Allergic/Immunocompromised: denies: Difficulty Healing, Frequent Infections, Hives, Itching, others Hematologic/Lymphatic: denies: anemia, blood clots, easy bleeding, easy bruising, swollen glands, others Endocrine: denies: excessive hunger, excessive sweating, excessive thirst, excessive urination, flushing, intolerance to cold, intolerance to heat, unexplained weight gain, unexplained weight loss, others Psychiatric: denies: anxiety, bipolar disorder, depression, hopeless, panic disorder, schizophrenia, sleepless, suicidal, others All Other Systems: Reviewed and Negative Physical Exam General Appearance: Moderate Distress, Thin HEENT: Normal ENT Inspection, PERRL/EOMI, Pharynx Normal, TMs Normal Neck: Full Range of Motion, Non-Tender, Normal, Normal Inspection Respiratory: Chest Non-Tender, Lungs Clear, No Accessory Muscle Use, No Respiratory Distress, Normal Breath Sounds Cardiovascular: No Edema, No JVD, No Murmur, No Gallop, Normal Peripheral Pulses, Regular Rate/Rhythm Breast Exam: Deferred Gastrointestinal: Diffuse, Guarding, No Organomegaly, No Pulsatile Mass, Normal Bowel Sounds, Tenderness Genitalia: Deferred Pelvic: Deferred Rectal: Deferred Extremities: No calf tenderness, Normal capillary refill, Normal inspection, Normal range of motion, Non-tender, No pedal edema Musculoskeletal : Apperance: Normal Neurologic: Alert, sales service route manager II-XII nml as Tested, No Motor Deficits, Normal Affect, Normal Mood, No Sensory Deficits Cerebellar Function: Normal Reflexes: Normal Skin: Dry, Normal Color, Warm Peripheral Pulses: 1+ carotid (R), 1+ carotid (L) Lymphatic: No Adenopathy EKG EKG : Pulse Rate (adult): 82 [employer]: Normal Cardiac Rhythm: NSR Was a procedure done? Was a procedure done?: No GI differential Dx Differential Diagnosis: Cholangitis, Cholecystitis, Constipation, Esophagitis, Gastritis/PUD, Gastroenteritis, Pancreatitis, Dehydration, Diabetes/ DKA, Drug toxicity, Electrolyte Imbalance, Renal Failure, Ischemic Bowel, Mass, Anemia X-Ray, Labs, Meds, VS Vital Signs Date Time Temp Pulse Resp B/P (MAP) Pulse Ox O2 Delivery O2 Flow Rate FiO2 03/18/24 14:00 96 18 140/59 03/18/24 13:27 96 18 140/59 03/18/24 13:20 97.8 96 18 140/59 (86) 98 97.8 03/18/24 13:20 96 18 98 Room Air 03/18/24 13:02 82 03/18/24 12:04 97.8 83 18 98/66 (77) 99 97.8 03/18/24 11:40 82 03/18/24 11:35 97.8 83 18 96/71 (79) 98 Lab Test 03/18/24 13:41 Range/Units White Blood Count 5.8 4.4-10.8 10^3/uL Red Blood Count 3.63 L 4.5-5.90 10^6/uL Hemoglobin 11.8 L 13.5-17.5 g/dL Hematocrit 35.5 L 41.0-53.0 % Mean Corpuscular Volume 97.6 80.0-100.0 fL Mean Corpuscular Hemoglobin 32.4 H 28.0-32.0 pg Mean Corpuscular Hemoglobin Concent 33.2 32.0-36.0 g/dL Red Cell Distribution Width 15.7 H 11.8-14.3 % Platelet Count 302 140-450 10^3/uL Mean Platelet Volume 6.7 L 6.9-10.8 fL Neutrophils (%) (Auto) 53.0 37.0-80.0 % Lymphocytes (%) (Auto) 35.3 10.0-50.0 % Monocytes (%) (Auto) 8.0 0.0-12.0 % Eosinophils (%) (Auto) 3.1 0.0-7.0 % Basophils (%) (Auto) 0.6 0.0-2.0 % Neutrophils # (Auto) 3.1 1.6-8.6 10 ^3/uL Lymphocytes # (Auto) 2.0 0.4-5.4 10 ^3/uL Monocytes # (Auto) 0.5 0-1.3 10 ^3/uL Eosinophils # (Auto) 0.2 0-0.8 10 ^3/uL Basophils # (Auto) 0 0-0.2 10 ^3/uL Nucleated Red Blood Cells 0.2 % Prothrombin Time 12.0 H 9.3-11.8 sec Prothrombin Time INR 1.14 0.9-1.15 Activated Partial Thromboplast Time 32.5 24.5-34.5 SEC Sodium Level 133 L 136-145 mmol/L Potassium Level 4.4 3.5-5.1 mmol/L Chloride Level 101 98-107 mmol/L Carbon Dioxide Level 29 20-31 mmol/L Anion Gap 3 L 5-15 Blood Urea Nitrogen 18 9-23 mg/dL Creatinine 0.56 L 0.700-1.30 mg/dL Glomerular Filtration Rate Calc 116 >90 mL/min BUN/Creatinine Ratio 32.1 H 10.0-20.0 Serum Glucose 80 74-106 mg/dL Calcium Level 9.0 8.7-10.4 mg/dL Magnesium Level 1.7 1.6-2.6 mg/dL Total Bilirubin 0.2 0.2-1.0 mg/dL Aspartate Amino Transferase (AST) 12 L 13-40 U/L Alanine Aminotransferase (ALT) 16 7-40 U/L Alkaline Phosphatase 88 46-116 U/L Total Protein 5.6 L 5.7-8.2 g/dL Albumin 3.3 3.2-4.8 g/dL Lipase 126 H 12-53 U/L Current Medications Medications (Trade) Dose Ordered Sig/Desean Route Start Time Stop Time Status Last Admin Metoclopramide HCl (Reglan Injection) 10 mg ONCE ONCE IV 03/18/24 13:00 03/18/24 13:01 DC 03/18/24 13:23 Hydromorphone HCl (Dilaudid Injection) 0.5 mg ONCE ONCE IV 03/18/24 13:00 03/18/24 13:01 DC 03/18/24 13:27 Sodium Chloride 1,000 ml @ 1,000 mls/hr Q1H ONCE IV 03/18/24 13:15 03/18/24 14:14 DC 03/18/24 13:24 [place] [id number] Ph: [phone] DIAGNOSTIC IMAGING Diagnostic Imaging Report : [id number] Signed PATIENT: BC STERLING ACCT: [id number] UNIT: [id number] : 1970 LOC: ER ROOM / BED: / AGE / SEX: 54 / M ADM STATUS: REG ER SERVICE 1254 ORDERING PHYSICIAN: JOSE SAUCEDO MD PROCEDURE(s): ABPLIV - CT AB PEL WITH IV CON ONLY REASON: Pancreatitis possible pancreatic cancer ORDER NUMBER(s): [id number], ACCESSION NUMBER(s): [id number] Exam: CT CT AB PEL WITH IV CON ONLY History: Pancreatitis possible pancreatic cancer Comparison Study: CT CT AB PEL WITH IV CON ONLY on DOS: 02/16/24 TECHNIQUE: A digital company secretary image was obtained. During the uneventful, intravenous administration of contrast material, multislice data acquisition was obtained through the abdomen and pelvis. The data set was subsequently reconstructed into axial images. Images reviewed on a wrist examination is an examination of axial and multiplanar reformations using a variety of window levels and settings. RADIATION DOSE: DLP 278.4 mGy.cm; CTDI vol 5.03 mGy. Findings: Lungs: The lung bases are clear. Heart: The visualized heart is unremarkable. No cardiomegaly or pericardial effusion. Liver: Unremarkable. Gallbladder: Unremarkable. Spleen: Unremarkable Pancreas: Multiple calcifications throughout the pancreas. Dilated and tortuous pancreatic duct. 2.1 x 1.6 cm cystic lesion in the uncinate process. No definite enhancing lesions. Possible peripancreatic free fluid. Adrenals: Unremarkable Kidneys: Unremarkable GI tract: Thickened duodenal wall. : Unremarkable. Vasculature: Unremarkable Lymphadenopathy: Absent Peritoneum: No ascites Musculoskeletal: Unremarkable Soft tissues: Unremarkable Impression: 1. Possible peripancreatic free fluid. Correlate for pancreatitis. 2. Dilated and tortuous pancreatic duct, nonspecific. 3. 2.1 cm cystic lesion in the uncinate process. Recommend contrast enhanced MRI for further evaluation. 4. Sequela of chronic pancreatitis. 5. Duodenal wall thickening may be reactive or due to duodenitis. ATED BY: BONNIE BRADLEY DO DICTATED DATE/TIME: 03/18/24 1355 SIGNED BY: BONNIE BRADLEY DO SIGNED DATE/TIME: 03/18/24 1355 CC: X-Ray, Labs, Meds, VS Comment Course in the emergency department eventful patient came in complaining of abdominal pain with nausea and vomiting he was admitted and discharged last Saturday for pancreatitis he also has history of asthma The EKG shows normal sinus rhythm at 82 with biatrial enlargement CBC is normal CMP negative Lipase 126 elevated INR 1.[address] abdomen and pelvis shows chronic pancreatitis small lesion in the uncinate pancreas and also duodenitis Patient knows about the lesion and he will be followed by [facility] for possible surgeries meanwhile at this time the patient is not in acute distress and will be discharged home to follow up with the he has PCP or oral surgery technician Time of 1ST Reevaluation: 13:09 Reevaluation 1ST: Unchanged Patient Education/Counseling: Diagnosis, Treatment Family Education/Counseling: No Family Present Departure 1 Departure Time of Disposition: 14:52 Impression: Primary Impression: Chronic pancreatitis Qualified Codes: K86.1 - Other chronic pancreatitis Additional Impressions: Pancreatic mass Nausea and vomiting Qualified Codes: R11.2 - Nausea with vomiting, unspecified Disposition: HOME / SELF CARE / HOMELESS Condition: Fair Additional Instructions: Push fluids clear to full liquid diet for the next 48 hours Follow up with your PCP and oral surgery technician Continue your hydrocodone for the pain Discharged With: Self Critical Care Note Critical Care Time?: No Stability Stability form required: No Heart Score Heart Score: Heart Score Response (Comments) Value History N/A 0 EKG Normal 0 Age 45-64 1 Risk Factors 1 or 2 risk factors 1 Troponin N/A 0 Total 2 I personally scribed for JOSE SAUCEDO MD ([email or web address]) on 03/18/24 at 12:53. Electronically submitted by Amairani Gutierrez ([email or web address]). I personally scribed for JOSE SAUCEDO MD ([email or web address]) on 03/18/24 at 13:02. Electronically submitted by Amairani Gutierrez ([email or web address]). I personally scribed for JOSE SAUCEDO MD ([email or web address]) on 03/18/24 at 14:24. Electronically submitted by Amairani Gutierrez ([employer]). JOSE SAUCEDO MD Mar 18, 2024 12:53
[2024-03-18] MEDS: SODIUM CHLORIDE 0.9% 1,000 ML IV ONE ×2 (13:05→13:24)
[2024-03-18 13:20] VITALS: TEMP 97.8; O2SAT 98
[2024-03-18] MEDS: METOCLOPRAMIDE HCL 5MG/ml INJ 2ml VIAL IV ONE (13:23)
[2024-03-18] MEDS: HYDROmorphone HCL 2 MG/ML VL/or syr IV ONE (13:27)
--- NOTE | 2024-03-18 13:57 | DVH ---
Exam: CT CT AB PEL WITH IV CON ONLY History: Pancreatitis possible pancreatic cancer Comparison Study: CT CT AB PEL WITH IV CON ONLY on DOS: 02/16/24 TECHNIQUE: A digital welt wheeler image was obtained. During the uneventful, intravenous administration of c ontrast material, multislice data acquisition was obtained through the abdomen and pelvis. The data s et was subsequently reconstructed into axial images. Images reviewed on a wrist examination is an exa mination of axial and multiplanar reformations using a variety of window levels and settings. RADIATION DOSE: DLP 278.4 mGy.cm; CTDI vol 5.03 mGy. Findings: Lungs: The lung bases are clear. Heart: The visualized heart is unremarkable. No cardiomegaly or pericardial effusion. Liver: Unremarkable. Gallbladder: Unremarkable. Spleen: Unremarkable Pancreas: Multiple calcifications throughout the pancreas. Dilated and tortuous pancreatic duct. 2.1 x 1.6 cm cystic lesion in the uncinate process. No definite enhancing lesions. Possible peripancreati c free fluid. Adrenals: Unremarkable Kidneys: Unremarkable GI tract: Thickened duodenal wall. : Unremarkable. Vasculature: Unremarkable Lymphadenopathy: Absent Peritoneum: No ascites Musculoskeletal: Unremarkable Soft tissues: Unremarkable Impression: 1. Possible peripancreatic free fluid. Correlate for pancreatitis. 2. Dilated and tortuous pancreatic duct, nonspecific. 3. 2.1 cm cystic lesion in the uncinate process. Recommend contrast enhanced MRI for further evaluati on. 4. Sequela of chronic pancreatitis. 5. Duodenal wall thickening may be reactive or due to duodenitis.
[2024-03-18 14:00] VITALS: BP 140/59; PULSE 96; RESP 18
[2024-03-18 14:07] LABS: Basophils # (auto) 0 10 ^3/uL (0-0.2); Basophils % (auto) 0.6 % (0.0-2.0); Eosinophils # (auto) 0.2 10 ^3/uL (0-0.8); Eosinophils % (auto) 3.1 % (0.0-7.0); Hematocrit 35.5 % (41.0-53.0); Hemoglobin 11.8 g/dL (13.5-17.5); Lymphocytes % (auto) 35.3 % (10.0-50.0); Mean Corpuscular Hemoglobin 32.4 pg (28.0-32.0); Mean Corpuscular Hgb Conc. 33.2 g/dL (32.0-36.0); Mean Corpuscular Volume 97.6 fL (80.0-100.0); Monocytes # (auto) 0.5 10 ^3/uL (0-1.3); Neutrophils # (auto) 3.1 10 ^3/uL (1.6-8.6); Nucleated Red Blood Cells % 0.2 %; Platelet Count (auto) 302 10^3/uL (140-450); Red Blood Cells 3.63 10^6/uL (4.5-5.90); Red Cell Distribution Width 15.7 % (11.8-14.3); White Blood Cell 5.8 10^3/uL (4.4-10.8)
[2024-03-18 14:21] LABS: Alanine Aminotransferase 16 U/L (7-40); Albumin 3.3 g/dL (3.2-4.8); Alkaline Phosphatase 88 U/L (46-116); Anion Gap 3 (5-15); BUN/Creatinine Ratio 32.1 (10.0-20.0); Blood Urea Nitrogen 18 mg/dL (9-23); Carbon Dioxide 29 mmol/L (20-31); Chloride 101 mmol/L (98-107); Glucose 80 mg/dL (74-106); Magnesium 1.7 mg/dL (1.6-2.6); Potassium 4.4 mmol/L (3.5-5.1)
[2024-03-18 14:22] LABS: INR 1.14 (0.9-1.15); Partial Thromboplastin Time 32.5 SEC (24.5-34.5)
[2024-03-18 14:24] LABS: Aspartate Aminotransferase 12 U/L (13-40); Bilirubin, Total 0.2 mg/dL (0.2-1.0); Lipase 126 U/L (12-53); Sodium 133 mmol/L (136-145); Total Protein 5.6 g/dL (5.7-8.2)
--- NOTE | 2024-03-25 09:09 | ECG ---
[facility] Test Date: 2024-03-18 Test Time: 11:40:48 Pat Name: BC STERLING Department: ER Room: Gender: M Advanced Practice Rn: TANA : 1970 Requested By: FLY DOMINIQUE Order Number: [id number] Reading MD: Jonatan Ornelas Measurements Intervals [place] Rate: 82 P: 88 [place]: 136 QRS: 82 QRSD: 91 T: 85 QT: 383 QTc: 448 Interpretive Statements Pacemaker spikes or artifacts Sinus rhythm Biatrial enlargement RSR' in V1 or V2, probably normal variant Electronically Signed On 03-26-2024 9:37:40 PST by Jonatan Ornelas Please click the below link to view image of tracing.
== END 2024-03-18 15:08 | disposition home or self-care (01) ==
LOC: ER 11:29
DX: K86.1 Other chronic pancreatitis (principal); K85.90 Acute pancreatitis without necrosis or infection, unspecified; J45.909 Unspecified asthma, uncomplicated; Z87.19 Personal history of other diseases of the digestive system; Z95.0 Presence of cardiac pacemaker; Z79.899 Other long term (current) drug therapy
CPT/HCPCS: 36415; 74177; 80053; 83690; 83735; 85025; 85610; 85730; 93005; 96361; 96374; 96375; 99285; J1171; J2765; J7030; Q9967

== ENCOUNTER 2024-04-09 08:27 | Inpatient (IN) | payer MEDICAID ==
[~2024-04-09] VITALS: Ht 167.6 cm; Wt 52.2 kg
--- NOTE | 2024-04-09 08:49 | ED.PDOC ---
GI ASSESSMENT HPI Comments 54 year old male presents to the ED with chief complaint of abdominal pain. Patient reports that he has been experiencing epigastric abdominal pain with associated nausea since last night. Patient relays that he has history of chronic pancreatitis and pancreatic stones. Patient states he was admitted to [facility] in August for the pancreatitis, however, no ERCP was able to be performed due to his malnutrition and inflammation. Patient states he was advised to gain 25 pounds with Ensure every day before surgery can be performed. Patient notes he has gained some weight, but eating worsens his pain. Patient denies any vomiting, diarrhea, fever, chills, dizziness, headache, or dysuria. Time Seen by MD: 08:43 Primary Care Provider: DAWN Reviewed Notes: Nurses Notes, Medications, Allergies Allergies: Coded Allergies: NO KNOWN ALLERGIES (Unverified , 02/16/24) Home Meds Active Scripts Hydrocodone-Acetaminophen (Hydrocodone Bitartrate/AC 5-325 mg) 1 Tab Tab, 1 TAB PO QID PRN, #30 TAB Prov:FLORIDA BOWMAN MD 03/15/24 Oxycodone W/ Acetaminophen (Percocet 5/325MG) 1 Tab Tb, 1 TAB PO QID for 5 Days, #20 TAB Prov:BERENICE MANNING NP 02/18/24 Reported Medications Folic Acid (Folic Acid) 1 Mg Tab, 1 TAB PO DAILY 03/12/24 Multiple Vitamin (One-Daily Multi-Vitamin) 1 Tab Tab, 1 TAB PO DAILY 03/12/24 Pancreatic Enzymes (Creon) 12,000 Unt Cap, PO 02/17/24 Sucralfate (Sucralfate) 1 Gm Tab, 1 TAB PO QID 02/16/24 Rivaroxaban (Xarelto) 2.5 Mg Tab, PO 02/16/24 Magnesium Oxide (True Magnesium Oxide) 400 Mg Tab, 1 TAB PO DAILY 02/16/24 Ethambutol Hcl (Ethambutol Hcl) 100 Mg Tab, 800 MG PO DAILY 02/16/24 Rifampin (Rifampin) 150 Mg Cap, 150 MG PO DAILY 02/16/24 Azithromycin (Azithromycin) 250 Mg Tab, 500 MG PO DAILY 02/16/24 Information Source: Patient Mode of Arrival: Ambulatory Timing: Days Duration: Since onset Prehospital treatment: None Quality: Sharp Vomitus: None Stool: Normal Severity: Moderate Recent: None Recent Hx of: None Pain Location: Epigastric Modifying Factors: Nothing Associated sign and symptoms: Nausea Past Medical History PAST MEDICAL HISTORY: Asthma, Cancer Past Medical History (Other): Pancreatits/Pancreatic Stones Surgical History: Denies all surgeries Family History Family History: Unknown Social History Smoker: Non-Smoker Alcohol: Sober Drugs: Denies Drug Use Lives In: Home Constitutional: denies: chills, diaphoresis, fatigue, fever, malaise, sweats, weakness, others EENTM: denies: blurred vision, double vision, ear bleeding, ear discharge, ear drainage, ear pain, ear ringing, eye pain, eye redness, hearing loss, mouth pain, mouth swelling, nasal discharge, nose bleeding, nose congestion, nose pain, photophobia, tearing, throat pain, throat swelling, voice changes, others Respiratory: denies: cough, hemoptysis, orthopnea, SOB at rest, shortness of breath, SOB with excertion, stridor, wheezing, others Cardiovascular: denies: chest pain, dizzy spells, diaphoresis, Dyspnea on exertion, edema, irregular heart beat, left arm pain, lightheadedness, palpitations, PND, syncope, others Gastrointestinal: reports: abdominal pain, nausea; denies: abdomen distended, blood streaked bowels, constipated, diarrhea, dysphagia, difficulty swallowing, hematemesis, melena, poor appetite, poor fluid intake, rectal bleeding, rectal pain, vomiting, others Genitourinary: denies: burning, dysuria, flank pain, frequency, hematuria, incontinence, penile discharge, penile sore, pain, testicle pain, testicle swelling, urgency, others Neurological: denies: dizziness, fainting, headache, left sided numbness, left sided weakness, numbness, paresthesia, pre-existing deficit, right sided numbness, right sided weakness, seizure, speech problems, tingling, tremors, weakness, others Musculoskeletal: denies: back pain, gout, joint pain, joint swelling, muscle pain, muscle stiffness, neck pain, others Integumetry: denies: bruises, change in color, change in hair/nails, dryness, laceration, lesions, lumps, rash, wounds, others Allergic/Immunocompromised: denies: Difficulty Healing, Frequent Infections, Hives, Itching, others Hematologic/Lymphatic: denies: anemia, blood clots, easy bleeding, easy bruising, swollen glands, others Endocrine: denies: excessive hunger, excessive sweating, excessive thirst, excessive urination, flushing, intolerance to cold, intolerance to heat, unexplained weight gain, unexplained weight loss, others Psychiatric: denies: anxiety, bipolar disorder, depression, hopeless, panic disorder, schizophrenia, sleepless, suicidal, others All Other Systems: Reviewed and Negative Physical Exam General Appearance: Moderate Distress, Normal HEENT: Normal ENT Inspection, PERRL/EOMI Neck: Full Range of Motion, Non-Tender, Normal, Normal Inspection Respiratory: Chest Non-Tender, Lungs Clear, No Accessory Muscle Use, No Respiratory Distress, Normal Breath Sounds Cardiovascular: No Edema, No JVD, No Murmur, No Gallop, Normal Peripheral Pulses, Regular Rate/Rhythm Breast Exam: Deferred Gastrointestinal: No Organomegaly, Non Tender, No Pulsatile Mass, Normal Bowel Sounds, Soft Genitalia: Deferred Pelvic: Deferred Rectal: Deferred Extremities: No calf tenderness, Normal capillary refill, Normal inspection, Normal range of motion, Non-tender, No pedal edema Musculoskeletal : Apperance: Normal Neurologic: Alert, 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 Was a procedure done?: No GI differential Dx Differential Diagnosis: Constipation, Diverticular disease, Esophagitis, Gastritis/PUD, Gastroenteritis X-Ray, Labs, Meds, VS Vital Signs Date Time Temp Pulse Resp B/P (MAP) Pulse Ox O2 Delivery O2 Flow Rate FiO2 04/09/24 12:50 81 18 142/95 04/09/24 12:46 97.9 81 18 142/95 (111) 99 97.9 04/09/24 12:46 81 18 99 Room Air 04/09/24 12:13 88 18 98 Room Air* 0 21 04/09/24 12:13 97.8 88 18 143/69 (93) 99 97.8 04/09/24 08:44 97.4 98 18 88/67 (74) 95 Lab Test 04/09/24 09:28 Range/Units White Blood Count 5.6 4.4-10.8 10^3/uL Red Blood Count 4.15 L 4.5-5.90 10^6/uL Hemoglobin 13.9 13.5-17.5 g/dL Hematocrit 40.9 L 41.0-53.0 % Mean Corpuscular Volume 98.5 80.0-100.0 fL Mean Corpuscular Hemoglobin 33.6 H 28.0-32.0 pg Mean Corpuscular Hemoglobin Concent 34.1 32.0-36.0 g/dL Red Cell Distribution Width 15.2 H 11.8-14.3 % Platelet Count 325 140-450 10^3/uL Mean Platelet Volume 6.7 L 6.9-10.8 fL Neutrophils (%) (Auto) 50.1 37.0-80.0 % Lymphocytes (%) (Auto) 37.8 10.0-50.0 % Monocytes (%) (Auto) 7.9 0.0-12.0 % Eosinophils (%) (Auto) 3.6 0.0-7.0 % Basophils (%) (Auto) 0.6 0.0-2.0 % Neutrophils # (Auto) 2.8 1.6-8.6 10 ^3/uL Lymphocytes # (Auto) 2.1 0.4-5.4 10 ^3/uL Monocytes # (Auto) 0.4 0-1.3 10 ^3/uL Eosinophils # (Auto) 0.2 0-0.8 10 ^3/uL Basophils # (Auto) 0 0-0.2 10 ^3/uL Nucleated Red Blood Cells 0.0 % Sodium Level 134 L 136-145 mmol/L Potassium Level 4.3 3.5-5.1 mmol/L Chloride Level 102 98-107 mmol/L Carbon Dioxide Level 28 20-31 mmol/L Anion Gap 4 L 5-15 Blood Urea Nitrogen 11 9-23 mg/dL Creatinine 0.66 L 0.700-1.30 mg/dL Glomerular Filtration Rate Calc 111 >90 mL/min BUN/Creatinine Ratio 16.7 10.0-20.0 Serum Glucose 113 H 74-106 mg/dL Calcium Level 9.6 8.7-10.4 mg/dL Total Bilirubin 0.3 0.2-1.0 mg/dL Aspartate Amino Transferase (AST) 13 13-40 U/L Alanine Aminotransferase (ALT) 12 7-40 U/L Alkaline Phosphatase 101 46-116 U/L Total Protein 7.1 5.7-8.2 g/dL Albumin 4.3 3.2-4.8 g/dL Lipase 75 H 12-53 U/L Current Medications Medications (Trade) Dose Ordered Sig/Desean Route Start Time Stop Time Status Last Admin Sodium Chloride 1,000 ml @ 1,000 mls/hr Q1H ONCE IV 04/09/24 11:30 04/09/24 12:29 DC 04/09/24 12:39 Morphine Sulfate 4 mg ONCE ONCE IV 04/09/24 12:45 04/09/24 12:46 DC 04/09/24 12:50 Patient alert. Complaining of abdominal pain. Lipase elevated. Vitals stable. Abdomen is soft. WBC within normal limits. Blood pressure low. Establish intravenous access. Was given fluids. Was given pain medication. Explained to the patient. Continue cardiac monitoring. Reviewed his previous visit. He was at [facility] where he was supposed to have ERCP. They could not do the procedure because they could not get through the duct. They recommended for the patient to drink ensure to gain weight. Time of 1ST Reevaluation: 09:43 Reevaluation 1ST: Unchanged Patient Education/Counseling: Diagnosis, Treatment Family Education/Counseling: No Family Present Departure 1 Departure Time of Disposition: 17:07 Impression: Primary Impression: Acute on chronic pancreatitis Disposition: ADMITTED INPATIENT Admit to: Med Surg Condition: Guarded Critical Care Note Critical Care Time?: No Stability Stability form required: No Heart Score Heart Score: Heart Score Response (Comments) Value History N/A 0 EKG N/A 0 Age N/A 0 Risk Factors N/A 0 Troponin N/A 0 Total 0 I personally scribed for NATALEE ROMEO MD ([email or web address]) on 04/09/24 at 08:49. Electronically submitted by Mc Hunt ([email or web address]). NATALEE ROMEO MD Apr 09, 2024 08:49
[2024-04-09 09:46] LABS: Basophils # (auto) 0 10 ^3/uL (0-0.2); Basophils % (auto) 0.6 % (0.0-2.0); Eosinophils # (auto) 0.2 10 ^3/uL (0-0.8); Eosinophils % (auto) 3.6 % (0.0-7.0); Hematocrit 40.9 % (41.0-53.0); Hemoglobin 13.9 g/dL (13.5-17.5); Lymphocytes # (auto) 2.1 10 ^3/uL (0.4-5.4); Lymphocytes % (auto) 37.8 % (10.0-50.0); Mean Corpuscular Hemoglobin 33.6 pg (28.0-32.0); Mean Corpuscular Hgb Conc. 34.1 g/dL (32.0-36.0); Mean Corpuscular Volume 98.5 fL (80.0-100.0); Monocytes # (auto) 0.4 10 ^3/uL (0-1.3); Monocytes % (auto) 7.9 % (0.0-12.0); Neutrophils # (auto) 2.8 10 ^3/uL (1.6-8.6); Neutrophils % (auto) 50.1 % (37.0-80.0); Platelet Count (auto) 325 10^3/uL (140-450); Red Blood Cells 4.15 10^6/uL (4.5-5.90); Red Cell Distribution Width 15.2 % (11.8-14.3); White Blood Cell 5.6 10^3/uL (4.4-10.8)
[2024-04-09 10:14] LABS: Alanine Aminotransferase 12 U/L (7-40); Albumin 4.3 g/dL (3.2-4.8); Alkaline Phosphatase 101 U/L (46-116); Anion Gap 4 (5-15); Aspartate Aminotransferase 13 U/L (13-40); BUN/Creatinine Ratio 16.7 (10.0-20.0); Blood Urea Nitrogen 11 mg/dL (9-23); Calcium 9.6 mg/dL (8.7-10.4); Carbon Dioxide 28 mmol/L (20-31); Chloride 102 mmol/L (98-107); Potassium 4.3 mmol/L (3.5-5.1)
[2024-04-09 10:15] LABS: Total Protein 7.1 g/dL (5.7-8.2)
[2024-04-09 10:19] LABS: Bilirubin, Total 0.3 mg/dL (0.2-1.0); Glucose 113 mg/dL (74-106); Sodium 134 mmol/L (136-145)
[2024-04-09 10:45] LABS: Lipase 75 U/L (12-53)
[2024-04-09 12:13] VITALS: PULSE 88; RESP 18; O2SAT 98
[2024-04-09] MEDS ORDERED: MORPHINE SULFATE INJ 2 MG/ml SYRG IM ONE (12:15)
[2024-04-09] MEDS: SODIUM CHLORIDE 0.9% 1,000 ML IV ONE (12:39)
[2024-04-09] MEDS: MORPHINE SULFATE 4 MG/ML SYR/VIAL IV ONE (12:50)
[2024-04-09] MEDS ORDERED: ONDANSETRON HCL 4 MG/2 ML VIAL IV PRN ×2 (13:00→14:00)
[2024-04-09] MEDS ORDERED: NITROGLYCERIN 0.4 MG SL TAB SL PRN (13:00)
[2024-04-09] MEDS ORDERED: DOCUSATE SOD 100 MG CAP PO PRN (13:00)
[2024-04-09] MEDS: SODIUM CHLORIDE 0.9% 1,000 ML IV SCH (13:55)
[2024-04-09] MEDS ORDERED: MORPHINE SULFATE 4 MG/ML SYR/VIAL IV PRN (14:00)
[2024-04-09] MEDS: PIPERACILLIN-TAZOB 3.375GM 100 ML IV ONE (14:20)
--- NOTE | 2024-04-09 14:40 | DVHHP2 ---
History of Present Illness Reason for Visit: Epigastric pain History of Present Illness 54-year-old male past medical history pancreatitis mac pneumonia pancreatic stones asthma questionable cancer denies any surgical history chief complaint patient comes in with abdominal pain he states epigastric areas has been worse since last night. He was seen here in beginning of the month and he was seen by ER team and discharged home patient states he has not follow up with the it appears he gets care at [facility]. He states he was supposed to do a surgery he was very poor historian not sure what kind of surgery needs to be done but he says they told him he needs to gain weight before they can proceed to any possible surgeries. Patient currently denies any fever no chest pain no shortness a breath no vomiting no diarrhea. He states nothing makes it better nothing makes worse since he is constant pain. When evaluating patient's labs and imaging CBC was unremarkable CMP found a sodium 134 glucose was 113 lipase was 75. No imaging was completed prior to admission but then did review CT scan from March 18, 2024 it shows possible. Pancreatic free fluid duodenitis. With these findings we will admit patient we will provide IV antibiotics keep NPO IV fluids pain management and ask for GI consult Past Medical History See HPI above Past Surgical History Denies surgical history Family History Reviewed, non-contributory to the management of this case. Past Social History The patient lives at home, denies smoking, alcohol or illicit drugs abuse. Review of Systems Constitutional: No: Fever, Chills, Sweats, Weakness, Malaise, Other Eyes: No: Pain, Vision change, Conjunctivae inflammation, Eyelid inflammation, Other, Redness ENT: No: Ear pain, Ear discharge, Nose pain, Nose discharge, Nose congestion, Mouth pain, Mouth swelling, Throat pain, Throat swelling, Other Respiratory: No: Cough, Dry, Shortness of breath, SOB with excertion, Wheezing, Hemoptysis, Pleuritic Pain, Sputum, Wheezing, Other Cardiovascular: No: Chest Pain, Palpitations, Orthopnea, Paroxysmal Noc. Dyspnea, Edema, Lt Headedness, Other Gastrointestinal: Nausea, Vomiting, Abdominal Pain; No: Diarrhea, Constipation, Melena, Hematochezia, Other Genitourinary: No Dysuria, No Frequency, No Incontinence, No Hematuria, No Retention, No Other Musculoskeletal: No: other, neck pain, shoulder pain, arm pain, back pain, hand pain, leg pain, foot pain Skin: No: Rash, Lesions, Jaundice, Bruising, Other Neurological: No: Weakness, Numbness, Incoordination, Change in speech, Confusion, Seizures, Other Allergies: Coded Allergies: NO KNOWN ALLERGIES (Unverified , 02/16/24) Medications Current Medications Medications Dose Ordered Sig/Desean Route Start Time Stop Time Status Last Admin Dose Admin Sodium Chloride 1,000 ml @ 120 mls/hr Q8H20M IV 04/09/24 13:00 Ondansetron HCl 4 mg Q4HP PRN IV 04/09/24 13:00 Docusate Sodium 100 mg BIDPRN PRN PO 04/09/24 13:00 Nitroglycerin 0.4 mg Q5MINP PRN SL 04/09/24 13:00 Sucralfate 1 gm QID PO 04/09/24 18:00 Ethambutol HCl 800 mg DAILY PO 04/10/24 10:00 Folic Acid 1 mg DAILY PO 04/10/24 10:00 Magnesium Oxide 400 mg DAILY PO 04/10/24 10:00 Piperacillin Sod/ Tazobactam Sod 100 ml @ 25 mls/hr Q8HR IV 04/09/24 22:00 Morphine Sulfate 4 mg Q2HPRN PRN IV 04/09/24 14:00 Exam Vital Signs Vital Signs Date Time Temp Pulse Resp B/P (MAP) Pulse Ox O2 Delivery O2 Flow Rate FiO2 04/09/24 13:39 73 18 100/68 (79) 98 04/09/24 12:46 97.9 97.9 04/09/24 12:46 Room Air 04/09/24 12:13 0 21 General Appearance: Alert, Oriented X3, Cooperative, No acute distress, Other (Thin in his appearance) HEENT: Atraumatic, PERRLA, EOMI, Mucous membr. moist/pink Respiratory: Clear to auscultation, Normal air movement Cardiovascular: Regular rate, Normal S1, Normal S2, No murmurs Abdominal: Normal bowel sounds, No hepatospenomegaly, No masses, Other (+guarded and rebound tenderness ) Extremities: No clubbing, No cyanosis, No edema, Normal pulses, No tenderness/swelling Skin: No rashes, No breakdown, No significant lesion Neuro: Normal gait, Normal speech, Strength at 5/5 X4 ext, Normal tone, Sensation intact, Cranial nerves 3-12 NL Psych/Mental Status: Mental status NL, Mood NL Labs/Xrays Reviewed CT scan of the abdomen pelvis from March 18, 2024 it showed possible parviz pancreas free fluid in duodenitis and pancreatitis I reviewed labs, imaging CT scan abdomen pelvis, EKG and all diagnostic studies on this patient from ED records and the medical chart Labs Test 04/09/24 09:28 Range/Units White Blood Count 5.6 4.4-10.8 10^3/uL Red Blood Count 4.15 L 4.5-5.90 10^6/uL Hemoglobin 13.9 13.5-17.5 g/dL Hematocrit 40.9 L 41.0-53.0 % Mean Corpuscular Volume 98.5 80.0-100.0 fL Mean Corpuscular Hemoglobin 33.6 H 28.0-32.0 pg Mean Corpuscular Hemoglobin Concent 34.1 32.0-36.0 g/dL Red Cell Distribution Width 15.2 H 11.8-14.3 % Platelet Count 325 140-450 10^3/uL Mean Platelet Volume 6.7 L 6.9-10.8 fL Neutrophils (%) (Auto) 50.1 37.0-80.0 % Lymphocytes (%) (Auto) 37.8 10.0-50.0 % Monocytes (%) (Auto) 7.9 0.0-12.0 % Eosinophils (%) (Auto) 3.6 0.0-7.0 % Basophils (%) (Auto) 0.6 0.0-2.0 % Neutrophils # (Auto) 2.8 1.6-8.6 10 ^3/uL Lymphocytes # (Auto) 2.1 0.4-5.4 10 ^3/uL Monocytes # (Auto) 0.4 0-1.3 10 ^3/uL Eosinophils # (Auto) 0.2 0-0.8 10 ^3/uL Basophils # (Auto) 0 0-0.2 10 ^3/uL Nucleated Red Blood Cells 0.0 % Sodium Level 134 L 136-145 mmol/L Potassium Level 4.3 3.5-5.1 mmol/L Chloride Level 102 98-107 mmol/L Carbon Dioxide Level 28 20-31 mmol/L Anion Gap 4 L 5-15 Blood Urea Nitrogen 11 9-23 mg/dL Creatinine 0.66 L 0.700-1.30 mg/dL Glomerular Filtration Rate Calc 111 >90 mL/min BUN/Creatinine Ratio 16.7 10.0-20.0 Serum Glucose 113 H 74-106 mg/dL Calcium Level 9.6 8.7-10.4 mg/dL Total Bilirubin 0.3 0.2-1.0 mg/dL Aspartate Amino Transferase (AST) 13 13-40 U/L Alanine Aminotransferase (ALT) 12 7-40 U/L Alkaline Phosphatase 101 46-116 U/L Total Protein 7.1 5.7-8.2 g/dL Albumin 4.3 3.2-4.8 g/dL Lipase 75 H 12-53 U/L Assessment/Plan Assessment/Plan acute intractable abdominal pain likely from pancreatitis ordered morphine prn pain ordered abd us to evaluate pancreas fu results Acute pancreatitis with dilated pancreatic duct (which is not new) Pancreatic cyst(which is not new) found on ct scan completed on 03/18/2024 ordered abd us fu results ordered morphine as needed for pain npo for now ordered ivf ordered gi consult fu results ordered trigylcerids ordered protonix pt had mri of abd and found 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 Thomas saw pt (rounding team to consider if need consult this visit) acute Duodenitis found on ct scan from 03/18/24 will ordered zosyn for now ordered morphine as needed for pain acute Mild hypotension ordered ivf hydration Chronic current smoker I counseled the patient for 6 min about smoking suggestions did offer nicotine patch but patient declined patch and tobacco education smoking code [id number] chronic problem Mac pna will cont home dose of rifampin and ethambutol pancreatitis pancreatic stones asthma cancer Chronic pain syndrome fen/ppx npo ivf scd protonix no dvt ppx since pt is ambulatory plan admit to medicine gi consult fu results Plan discussed with: Patient My Orders Orders - SINDI MARVIN DNP Procedure Category Date Status Time Heplock Iv ED NURSING 04/09/24 Transmitted Abdomen Limited US 04/09/24 Taken 12:53 Admit ADMIT 04/09/24 Transmitted 12:53 Allergies JAMES 04/09/24 In Process 12:53 Code Status CODE 04/09/24 Transmitted 12:53 Sodium Chloride 0.9% PHA 04/09/24 In Process 13:00 Ondansetron Hcl PHA 04/09/24 In Process (Zofran) 13:00 Docusate Sodium PHA 04/09/24 In Process Capsule (Colace 13:00 Complete Blood Count LAB 04/10/24 Verified 04:00 Comprehensive LAB 04/10/24 Verified Metabolic Panel 04:00 Npo (Nothing By DIET 04/09/24 Transmitted Mouth) Diet Lunch Condition: Stable JAMES 04/09/24 In Process 12:53 BRP JAMES 04/09/24 In Process 12:53 Sequential JAMES 04/09/24 In Process Compression Device Nitroglycerin PHA 04/09/24 In Process Sublingual (Ntrostat 13:00 Stat Ekg For Chest JAMES 04/09/24 In Process Pain 12:53 Notify Md Of Changes JAMES 04/09/24 In Process From Base 12:53 [place] Worker For JAMES 04/09/24 In Process 24 Hours 12:53 Emergency Dysrhythmia JAMES 04/09/24 In Process Protocol 12:53 Rhythm Strips Once JAMES 04/09/24 In Process Every Shift 12:53 Oxygen By Nasal RT 04/09/24 Transmitted Cannula 12:53 Sucralfate Tab PHA 04/09/24 In Process (Carafate Tab) 18:00 Ethambutol Hcl PHA 04/10/24 In Process (Myambutol) 10:00 Folic Acid Tablet PHA 04/10/24 In Process 10:00 Magnesium Oxide PHA 04/10/24 In Process Tablet (Mag-Ox Tablet) 10:00 Piperacillin-Tazob PHA 04/09/24 In Process 3.375gm (Zosyn 3.375g 22:00 Morphine Sulfate PHA 04/09/24 In Process Injection 14:00 Date of Service: Apr 09, 2024 Billing Provider: SINDI MARVIN DNP Common Visit Codes: [id number] INP/OBS CARE (HIGH) SINDI MARVIN [facility] Apr 09, 2024 14:40
--- NOTE | 2024-04-09 14:43 | DVH ---
ULTRASOUND ABDOMEN LIMITED INDICATION: abd pain /pancreatitis TECHNIQUE: Multiple real-time sonographic images of the abdomen were obtained. COMPARISON: CT abdomen and pelvis 03/18/2024 FINDINGS: The visualized liver parenchyma appears homogenous . The liver measures 14.5 cm. No discrete h epatic lesion identified. There is mild intrahepatic biliary ductal dilatation seen in the left he patic lobe. There is no evidence of gallstones, gallbladder wall thickening or pericholecystic fluid. Common duct measures 8 mm. The right kidney measures 11.2 cm length. No sonographic evidence of nephrolithiasis or hydronephro sis. The head of the pancreas appears bulbous measuring approximately 4.1 cm with multiple cystic changes and calcifications. There is also a cystic structure in the pancreatic uncinate measuring 3.1 cm. The re is pancreatic ductal dilatation. IMPRESSION: 1. The head of the pancreas appears bulbous with multiple cystic changes and calcifications measuring approximately 4.1 cm. There is also a 3.1 cm cystic structure in the pancreatic uncinate. There is p ancreatic biliary ductal dilatation. The findings are nonspecific and may represent sequela pancreati tis. Pancreatic cystic lesion is not entirely excluded. 2. There is mild left intrahepatic and common biliary ductal dilatation. There is no sonographic evid ence of cholelithiasis. HS:Y
[2024-04-09 16:48] VITALS: BP 100/67; PULSE 66; RESP 18; TEMP 97.6; O2SAT 100
[2024-04-09] MEDS: MORPHINE SULFATE 4 MG/ML SYR/VIAL IV PRN (17:01)
[2024-04-09] MEDS: PANCREATIC ENZYMES 4200 UNIT CAP PO SCH (18:00)
[2024-04-09] MEDS: SUCRALFATE 1 GM TAB PO SCH (18:26)
[2024-04-09] MEDS: PIPERACILLIN-TAZOB 3.375GM 100 ML IV SCH (20:46)
[2024-04-09 21:43] VITALS: BP 102/58; PULSE 69; RESP 18; TEMP 97.9; O2SAT 99
[2024-04-10] VITALS (7 sets, daily range): BP systolic 101–115; BP diastolic 65–69; PULSE 78–92; RESP 17–20; TEMP 36.6; O2SAT 94–98
[2024-04-10 06:17] LABS: Basophils # (auto) 0.1 10 ^3/uL (0-0.2); Basophils % (auto) 0.9 % (0.0-2.0); Eosinophils # (auto) 0.3 10 ^3/uL (0-0.8); Lymphocytes # (auto) 2.4 10 ^3/uL (0.4-5.4); Monocytes # (auto) 0.5 10 ^3/uL (0-1.3)
[2024-04-10 06:20] LABS: Eosinophils % (auto) 4.6 % (0.0-7.0); Hematocrit 40.1 % (41.0-53.0); Hemoglobin 13.6 g/dL (13.5-17.5); Lymphocytes % (auto) 39.9 % (10.0-50.0); Mean Corpuscular Hemoglobin 33.9 pg (28.0-32.0); Mean Corpuscular Volume 99.7 fL (80.0-100.0); Monocytes % (auto) 8.3 % (0.0-12.0); Neutrophils # (auto) 2.8 10 ^3/uL (1.6-8.6); Neutrophils % (auto) 46.3 % (37.0-80.0); Nucleated Red Blood Cells % 0.1 %; Platelet Count (auto) 321 10^3/uL (140-450); Red Blood Cells 4.02 10^6/uL (4.5-5.90); Red Cell Distribution Width 15.3 % (11.8-14.3)
[2024-04-10 06:36] LABS: Alanine Aminotransferase 13 U/L (7-40); Albumin 4.1 g/dL (3.2-4.8); Alkaline Phosphatase 99 U/L (46-116); Anion Gap 5 (5-15); Aspartate Aminotransferase 15 U/L (13-40); BUN/Creatinine Ratio 12.3 (10.0-20.0); Calcium 10.1 mg/dL (8.7-10.4); Carbon Dioxide 28 mmol/L (20-31); Chloride 106 mmol/L (98-107); Potassium 4.3 mmol/L (3.5-5.1); Sodium 139 mmol/L (136-145)
[2024-04-10 06:40] LABS: Bilirubin, Total 0.2 mg/dL (0.2-1.0); Blood Urea Nitrogen 8 mg/dL (9-23); Glucose 108 mg/dL (74-106)
[2024-04-10] MEDS: MAGNESIUM OXIDE 400 MG TAB PO SCH (09:45)
[2024-04-10] MEDS: FOLIC ACID 1 MG TAB PO SCH (09:45)
[2024-04-10] MEDS: ETHAMBUTOL HCL 400 MG TAB PO SCH (09:45)
[2024-04-10] MEDS: MORPHINE SULFATE INJ 2 MG/ml SYRG IV PRN (13:10)
[2024-04-10] MEDS: HYDROcodone-ACET 10/325MG TAB PO PRN (16:26)
--- NOTE | 2024-04-10 16:40 | DVHDS2 ---
Discharge Summary Date of Admission Apr 09, 2024 at 12:53 Date of Discharge: Apr 10, 2024 Labs/Diagnostic Data: Laboratory Results Test 04/10/24 05:18 04/09/24 09:28 White Blood Count 6.0 10^3/uL (4.4-10.8) Red Blood Count 4.02 10^6/uL (4.5-5.90) Hemoglobin 13.6 g/dL (13.5-17.5) Hematocrit 40.1 % (41.0-53.0) Mean Corpuscular Volume 99.7 fL (80.0-100.0) Mean Corpuscular Hemoglobin 33.9 pg (28.0-32.0) Mean Corpuscular Hemoglobin Concent 34.0 g/dL (32.0-36.0) Red Cell Distribution Width 15.3 % (11.8-14.3) Platelet Count 321 10^3/uL (140-450) Mean Platelet Volume 6.7 fL (6.9-10.8) Neutrophils (%) (Auto) 46.3 % (37.0-80.0) Lymphocytes (%) (Auto) 39.9 % (10.0-50.0) Monocytes (%) (Auto) 8.3 % (0.0-12.0) Eosinophils (%) (Auto) 4.6 % (0.0-7.0) Basophils (%) (Auto) 0.9 % (0.0-2.0) Neutrophils # (Auto) 2.8 10 ^3/uL (1.6-8.6) Lymphocytes # (Auto) 2.4 10 ^3/uL (0.4-5.4) Monocytes # (Auto) 0.5 10 ^3/uL (0-1.3) Eosinophils # (Auto) 0.3 10 ^3/uL (0-0.8) Basophils # (Auto) 0.1 10 ^3/uL (0-0.2) Nucleated Red Blood Cells 0.1 % Sodium Level 139 mmol/L (136-145) Potassium Level 4.3 mmol/L (3.5-5.1) Chloride Level 106 mmol/L (98-107) Carbon Dioxide Level 28 mmol/L (20-31) Anion Gap 5 (5-15) Blood Urea Nitrogen 8 mg/dL (9-23) Creatinine 0.65 mg/dL (0.700-1.30) Glomerular Filtration Rate Calc 111 mL/min (>90) BUN/Creatinine Ratio 12.3 (10.0-20.0) Serum Glucose 108 mg/dL (74-106) Calcium Level 10.1 mg/dL (8.7-10.4) Total Bilirubin 0.2 mg/dL (0.2-1.0) Aspartate Amino Transferase (AST) 15 U/L (13-40) Alanine Aminotransferase (ALT) 13 U/L (7-40) Alkaline Phosphatase 99 U/L (46-116) Total Protein 7.0 g/dL (5.7-8.2) Albumin 4.1 g/dL (3.2-4.8) Lipase 75 U/L (12-53) Other Laboratory Tests 04/10/24 05:18 Brief Hx & Hospital Course: HPI:54-year-old male past medical history pancreatitis mac pneumonia pancreatic stones asthma questionable cancer denies any surgical history chief complaint patient comes in with abdominal pain he states epigastric areas has been worse since last night. He was seen here in beginning of the month and he was seen by ER team and discharged home patient states he has not follow up with the it appears he gets care at [facility]. He states he was supposed to do a surgery he was very poor historian not sure what kind of surgery needs to be done but he says they told him he needs to gain weight before they can proceed to any possible surgeries. Patient currently denies any fever no chest pain no shortness a breath no vomiting no diarrhea. He states nothing makes it better nothing makes worse since he is constant pain Hospitalization Course: Labs and vitals were stable on admit and throughout hospitalization stay. Likely seroma. On on admission lipase is elevated at 75 which is close to his baseline. Abdominal ultrasound shows head of the pancreas appears bulbous with multiple cystic changes and calcifications measuring approximately 4.1 cm. There is also a 3.1 cm cystic structure in the pancreatic uncinate. There is pancreatic biliary ductal dilatation. The findings are nonspecific and may represent sequela pancreatitis. Pancreatic cystic lesion is not entirely excluded. There is mild left intrahepatic and common biliary ductal dilatation. There is no sonographic evidence of cholelithiasis. Patient is treated with antibiotics IV, aggressive fluid hydration, and p.r.n. antiemetics. Patient continues to improve can stretch tolerating p.o.. Diet discontinued as clinic with any continues to tolerate. New discharge abdominal pain is improving, mildly tender to palpation, bowel sounds present and normal. Patient was having normal intake and passing gas. Patient was stable to discharge as per below. Discharge diagnosis: acute on chronic pancreatitis exacerbation; po intolernace resolving; intractable abdominal pain resolving; intractable nausea resolving; chronic multiple pancreatic cysts; chronic pancreatic calcifications; chronic pancreatic very duct dilation; cholelithiasis ruled out; hypertensive crisis/hypertensive urgency, resolved; hyponatremia, resolved; Discharge plan: - continue prn pain control (tylenol, ibuprofen, pain opiate), hydrate well with water, continue as needed zofran (refill not needed, per patietn) - full liquid diet x 4-5 days. - continue boost 2x/day. as tolerated. - return if po tolerance worsening. otherwise follow-up with pcp and gi specialist. Condition at Discharge: Fair Final Diagnosis/Problems List acute on chronic pancreatitis exacerbation; po intolernace resolving; intractable abdominal pain resolving; intractable nausea resolving; chronic multiple pancreatic cysts; chronic pancreatic calcifications; chronic pancreatic very duct dilation; cholelithiasis ruled out; hypertensive crisis/hypertensive urgency, resolved; hyponatremia, resolved; Discharge Disposition: Home Discharge Instruct/Medications Diet: See Comment Diet comment: full liquid diet Activity: No Restrictions, As Tolerated Follow Up/Referral: pcp, gi specialist. Medications: no new medications. Discharge Statement: "Patient was advised to return to the ER or call 911 if any headaches, dizziness, shortness of breath, chest pain, abdominal pain, bleeding, fevers, or worsening of medical condition. Patient was counseled about treatment plan, medications, possible side effects, patientverbalized understanding. All questions were answered to the best of my ability. This discharge took greater then 30 minutes in planning, reviewing documentation, counseling the patient, and discussing with other team members." ASSESSMENT ASSESSMENT Assessment acute on chronic pancreatitis exacerbation; po intolernace resolving; intractable abdominal pain resolving; intractable nausea resolving; chronic multiple pancreatic cysts; chronic pancreatic calcifications; chronic pancreatic very duct dilation; cholelithiasis ruled out; hypertensive crisis/hypertensive urgency, resolved; hyponatremia, resolved; Date of Service: Apr 10, 2024 Billing Provider: ARMIN PORRAS MD Common Visit Codes: 35491-GGD/OBS DISCH DAY >30min ARMIN PORRAS MD Apr 10, 2024 16:40
== END 2024-04-10 17:30 | disposition home or self-care (01) | DRG 282 ==
LOC: ER 08:27 → OVERFLOW 12:53 → TELE 20:41 → TELE-WESTW 22:05
PROVIDERS: ADMIT Nurse Practitioner Family; ATTEND Nurse Practitioner Family
DX: K85.90 Acute pancreatitis without necrosis or infection, unspecified (principal); I95.9 Hypotension, unspecified; K83.8 Other specified diseases of biliary tract; F17.200 Nicotine dependence, unspecified, uncomplicated; K29.80 Duodenitis without bleeding; G89.4 Chronic pain syndrome; J45.909 Unspecified asthma, uncomplicated; K86.1 Other chronic pancreatitis; K86.2 Cyst of pancreas; I16.0 Hypertensive urgency; E87.1 Hypo-osmolality and hyponatremia
CPT/HCPCS: 36415; 76705; 80053; 83690; 85025; 96365; 96375; G0378; J2543

== ENCOUNTER 2024-04-19 22:06 | Inpatient (IN) | payer MEDICAID ==
[~2024-04-19] VITALS: Ht 167.6 cm; Wt 50.6 kg
[2024-04-19 23:05] LABS: Basophils # (auto) 0 10 ^3/uL (0-0.2); Basophils % (auto) 0.6 % (0.0-2.0); Eosinophils # (auto) 0.4 10 ^3/uL (0-0.8); Eosinophils % (auto) 6.7 % (0.0-7.0); Hematocrit 39.3 % (41.0-53.0); Hemoglobin 13.3 g/dL (13.5-17.5); Lymphocytes # (auto) 2.2 10 ^3/uL (0.4-5.4); Lymphocytes % (auto) 35.6 % (10.0-50.0); Mean Corpuscular Hemoglobin 33.6 pg (28.0-32.0); Mean Corpuscular Hgb Conc. 33.7 g/dL (32.0-36.0); Mean Corpuscular Volume 99.6 fL (80.0-100.0); Monocytes # (auto) 0.5 10 ^3/uL (0-1.3); Monocytes % (auto) 8.2 % (0.0-12.0); Neutrophils # (auto) 3.1 10 ^3/uL (1.6-8.6); Neutrophils % (auto) 48.9 % (37.0-80.0); Nucleated Red Blood Cells % 0.1 %; Platelet Count (auto) 276 10^3/uL (140-450); Red Blood Cells 3.95 10^6/uL (4.5-5.90); Red Cell Distribution Width 14.7 % (11.8-14.3); White Blood Cell 6.3 10^3/uL (4.4-10.8)
--- NOTE | 2024-04-19 23:31 | DVH ---
Exam: CT CT AB PEL WO CON-NO ORAL OR IV History: abdominal pain Comparison Study: None available at time of dictation. Technique: Multidetector spiral CT of the abdomen was performed from lung bases to pubic symphysis. Imaging was performed without IV contrast. Axial, coronal and sagittal multiplanar reformats were ob tained from the axial data set by the technologist. Radiation Dose : 1. Abdomen/Pelvis: CTDIvol 5 mGy, DLP 241 mGy*cm. Findings: Evaluation of solid organs is limited due to lack of intravenous contrast use. Lung Bases: No acute or significant lung base finding. Normal heart size. No pleural or pericardial effusion. Liver: The liver is normal in size. No focal lesions. Gallbladder and Biliary Tree: Unremarkable Spleen: Unremarkable Pancreas: Scattered punctate calcifications likely sequelae of chronic pancreatitis. 2.2 cm hypodense lesion which appears to be arising from the pancreatic head. Adrenal Glands: Unremarkable Kidneys: Kidneys are grossly normal without calculi or hydronephrosis. Bladder: Grossly unremarkable for degree of distention. Bowel: The stomach is grossly normal in appearance. Moderate fecal retention in the colon.. Normal a ppendix is visualized in the right lower quadrant without findings of appendicitis. Ascites: Absent Lymphadenopathy: No mesenteric, retroperitoneal or periportal lymphadenopathy. Abdominal Wall and Mesentery: Unremarkable. Vasculature: The visualized abdominal aorta is normal in size and caliber. Evaluation of abdominal a nd pelvic vessels is limited due to lack of intravenous contrast. Pelvic Organs: Unremarkable Musculoskeletal: No aggressive focal bony lesions, acute fractures or dislocation. IMPRESSION: Scattered calcifications throughout the pancreas due to sequelae of chronic pancreatitis. Hypodense l esion at the pancreatic head which is not well characterized on this noncontrast study measuring up t o 2.2 cm. This can be further evaluated with nonemergent contrast-enhanced MRI or MRCP. Moderate fecal retention throughout the colon. END IMPRESSION:
[2024-04-19 23:33] LABS: Alanine Aminotransferase 14 U/L (7-40); Albumin 4.1 g/dL (3.2-4.8); Alkaline Phosphatase 92 U/L (46-116); Anion Gap 5 (5-15); Aspartate Aminotransferase 16 U/L (13-40); BUN/Creatinine Ratio 13.8 (10.0-20.0); Blood Urea Nitrogen 9 mg/dL (9-23); Carbon Dioxide 27 mmol/L (20-31); Chloride 100 mmol/L (98-107); Glucose 101 mg/dL (74-106); Potassium 4.1 mmol/L (3.5-5.1)
[2024-04-19 23:34] LABS: Bilirubin, Total 0.3 mg/dL (0.2-1.0)
[2024-04-19 23:43] LABS: Lipase 130 U/L (12-53); Sodium 132 mmol/L (136-145)
[2024-04-20] VITALS (9 sets, daily range): BP systolic 95–106; BP diastolic 42–66; PULSE 66–82; RESP 16–18; TEMP 97.6; O2SAT 93–98
--- NOTE | 2024-04-20 00:37 | ED.PDOC ---
History of Present Illness HPI Comments 54 y/o M, with a Hx of chronic pancreatitis, asthma, and tobacco cigarette use, presents with c/o non-radiating, diffused abdominal pain for 2x days, today. Patient reports on unprovoked onset of mild pain that has worsened within the past 2x days amidst being seen and evaluated at [facility] ([facility]), initially. He comments on pain feeling similar to when he had pancreatitis in the past, with most recent episode with associated hospital admission 2x weeks ago. Patient also reports on being told aforementioned visit at [facility] on his lipase being elevated at a value of 575 prior to being discharge, with no further remarks on any treatment or outpatient followup since. Patient denies having any nausea, vomiting, diarrhea, urinary symptoms, fever, chills, or other associated symptoms or modifiers at this time. Chief Complaint: Abdominal Pain Time Seen by MD: 22:40 Primary Care Provider: DAWN Reviewed Notes: Nurses Notes, Medications, Allergies Allergies: Coded Allergies: NO KNOWN ALLERGIES (Unverified , 02/16/24) Home Meds Active Scripts Hydrocodone-Acetaminophen (Hydrocodone Bitartrate/AC 5-325 mg) 1 Tab Tab, 1 TAB PO QID PRN, #30 TAB Prov:FLORIDA BOWMAN MD 03/15/24 Oxycodone W/ Acetaminophen (Percocet 5/325MG) 1 Tab Tb, 1 TAB PO QID for 5 Days, #20 TAB Prov:BERENICE MANNING NP 02/18/24 Reported Medications Folic Acid (Folic Acid) 1 Mg Tab, 1 TAB PO DAILY 03/12/24 Multiple Vitamin (One-Daily Multi-Vitamin) 1 Tab Tab, 1 TAB PO DAILY 03/12/24 Pancreatic Enzymes (Creon) 12,000 Unt Cap, PO 02/17/24 Sucralfate (Sucralfate) 1 Gm Tab, 1 TAB PO QID 02/16/24 Rivaroxaban (Xarelto) 2.5 Mg Tab, PO 02/16/24 Magnesium Oxide (True Magnesium Oxide) 400 Mg Tab, 1 TAB PO DAILY 02/16/24 Ethambutol Hcl (Ethambutol Hcl) 100 Mg Tab, 800 MG PO DAILY 02/16/24 Rifampin (Rifampin) 150 Mg Cap, 150 MG PO DAILY 02/16/24 Azithromycin (Azithromycin) 250 Mg Tab, 500 MG PO DAILY 02/16/24 Information Source: Patient Mode of Arrival: Ambulatory Severity: Moderate Timing: Days Duration: Since onset Prehospital treatment: Other (see HPI) Past Medical History PAST MEDICAL HISTORY: Asthma Past Medical History (Other): chronic pancreatitis, PNA, pancreatic stones Surgical History: Denies all surgeries Family History Family History: Unknown Social History Smoker: Non-Smoker Alcohol: Sober Drugs: Denies Drug Use Lives In: Home Gastrointestinal: reports: abdominal pain All Other Systems: Reviewed and Negative (negative unless otherwise stated above or in HPI) Physical Exam General Appearance: No Apparent Distress, Thin HEENT: Normal ENT Inspection, Pharynx Normal, TMs Normal, Other (mucus membranes ) Neck: Full Range of Motion, Non-Tender, Normal, Normal Inspection Respiratory: Chest Non-Tender, Lungs Clear, No Accessory Muscle Use, No Respiratory Distress, Normal Breath Sounds Cardiovascular: No Edema, No JVD, No Murmur, No Gallop, Normal Peripheral Pulses, Regular Rate/Rhythm Breast Exam: Deferred Gastrointestinal: Diffuse (tenderness ), No Organomegaly, No Pulsatile Mass, Normal Bowel Sounds, Soft, Tenderness (diffused) Genitalia: Deferred Pelvic: Deferred Rectal: Deferred Extremities: No calf tenderness, Normal capillary refill, Normal inspection, Normal range of motion, Non-tender, No pedal edema Musculoskeletal : Apperance: Normal Neurologic: Alert, staff assistant II-XII nml as Tested, No Motor Deficits, Normal Affect, Normal Mood, No Sensory Deficits Cerebellar Function: Normal Reflexes: Normal Skin: Dry, Normal Color, Warm Lymphatic: No Adenopathy Was a procedure done? Was a procedure done?: No Differential Dx Considerations may include: pancreatitis, gastritis, acute abdomen X-Ray, Labs, Meds, VS Vital Signs Date Time Temp Pulse Resp B/P (MAP) Pulse Ox O2 Delivery O2 Flow Rate FiO2 04/20/24 01:25 94 Room Air* 0 21 04/20/24 01:23 79 20 93/72 04/20/24 00:54 97.8 72 20 97/58 (71) 94 97.8 04/19/24 22:21 97.7 79 16 102/65 (77) 97 Lab Test 04/19/24 22:52 Range/Units White Blood Count 6.3 4.4-10.8 10^3/uL Red Blood Count 3.95 L 4.5-5.90 10^6/uL Hemoglobin 13.3 L 13.5-17.5 g/dL Hematocrit 39.3 L 41.0-53.0 % Mean Corpuscular Volume 99.6 80.0-100.0 fL Mean Corpuscular Hemoglobin 33.6 H 28.0-32.0 pg Mean Corpuscular Hemoglobin Concent 33.7 32.0-36.0 g/dL Red Cell Distribution Width 14.7 H 11.8-14.3 % Platelet Count 276 140-450 10^3/uL Mean Platelet Volume 6.6 L 6.9-10.8 fL Neutrophils (%) (Auto) 48.9 37.0-80.0 % Lymphocytes (%) (Auto) 35.6 10.0-50.0 % Monocytes (%) (Auto) 8.2 0.0-12.0 % Eosinophils (%) (Auto) 6.7 0.0-7.0 % Basophils (%) (Auto) 0.6 0.0-2.0 % Neutrophils # (Auto) 3.1 1.6-8.6 10 ^3/uL Lymphocytes # (Auto) 2.2 0.4-5.4 10 ^3/uL Monocytes # (Auto) 0.5 0-1.3 10 ^3/uL Eosinophils # (Auto) 0.4 0-0.8 10 ^3/uL Basophils # (Auto) 0 0-0.2 10 ^3/uL Nucleated Red Blood Cells 0.1 % Sodium Level 132 L 136-145 mmol/L Potassium Level 4.1 3.5-5.1 mmol/L Chloride Level 100 98-107 mmol/L Carbon Dioxide Level 27 20-31 mmol/L Anion Gap 5 5-15 Blood Urea Nitrogen 9 9-23 mg/dL Creatinine 0.65 L 0.700-1.30 mg/dL Glomerular Filtration Rate Calc 111 >90 mL/min BUN/Creatinine Ratio 13.8 10.0-20.0 Serum Glucose 101 74-106 mg/dL Calcium Level 10.0 8.7-10.4 mg/dL Total Bilirubin 0.3 0.2-1.0 mg/dL Aspartate Amino Transferase (AST) 16 13-40 U/L Alanine Aminotransferase (ALT) 14 7-40 U/L Alkaline Phosphatase 92 46-116 U/L Total Protein 7.0 5.7-8.2 g/dL Albumin 4.1 3.2-4.8 g/dL Lipase 130 H 12-53 U/L Current Medications Medications (Trade) Dose Ordered Sig/Desean Route Start Time Stop Time Status Last Admin Sodium Chloride 1,000 ml @ 1,000 mls/hr Q1H ONCE IVB 04/19/24 22:45 04/19/24 23:44 DC 04/20/24 01:24 Morphine Sulfate 4 mg ONCE ONCE IV 04/19/24 22:45 04/19/24 22:46 DC 04/20/24 01:23 Ondansetron HCl (Zofran) 4 mg ONCE ONCE IV 04/19/24 22:45 04/19/24 22:46 DC 04/20/24 01:24 Time of 1ST Reevaluation: 23:10 Reevaluation 1ST: Unchanged Patient Education/Counseling: Diagnosis, Treatment Family Education/Counseling: No Family Present Additional Information I reviewed the following notes from patient's past medical encounters: ED physician note on 04/09/24 and hospital admission discharge summary on 04/10/24 The following tests were ordered, and results were reviewed by me: CT Abdomen/pelvis w/o contrast, lipase, CMP, CBC I reviewed and agreed with the following test results read by other providers: CT Abdomen/pelvis w/o contrast I discussed treatment and results with medical personnel. I personally scribed for KALE STERN MD ([email or web address]) on 04/20/24 at 00:37. Electronically submitted by Rahul Renae ([email or web address]). I personally scribed for KALE STERN MD ([email or web address]) on 04/20/24 at 02:17. Electronically submitted by Rahul Renae ([email or web address]). KALE STERN MD Apr 20, 2024 00:37
[2024-04-20] MEDS: MORPHINE SULFATE 4 MG/ML SYR/VIAL IV ONE (01:23)
[2024-04-20] MEDS: SODIUM CHLORIDE 0.9% 1,000 ML IVB ONE (01:24)
[2024-04-20] MEDS: ONDANSETRON HCL 4 MG/2 ML VIAL IV ONE (01:24)
--- NOTE | 2024-04-20 02:20 | ED.PDOC ---
History of Present Illness HPI Comments 54 y/o M, with a Hx of chronic pancreatitis, asthma, and tobacco cigarette use, presents with c/o non-radiating, diffused abdominal pain for 2x days, today. Patient reports on unprovoked onset of mild pain that has worsened within the past 2x days amidst being seen and evaluated at [facility] ([facility]), initially. He comments on pain feeling similar to when he had pancreatitis in the past, with most recent episode with associated hospital admission 2x weeks ago. Patient also reports on being told aforementioned visit at [facility] on his lipase being elevated at a value of 575 prior to being discharge, with no further remarks on any treatment or outpatient followup since. Patient denies having any nausea, vomiting, diarrhea, urinary symptoms, fever, chills, or other associated symptoms or modifiers at this time. Chief Complaint: Abdominal Pain Time Seen by MD: 22:40 Primary Care Provider: DAWN Reviewed Notes: Nurses Notes, Medications, Allergies Allergies: Coded Allergies: NO KNOWN ALLERGIES (Unverified , 02/16/24) Home Meds Active Scripts Hydrocodone-Acetaminophen (Hydrocodone Bitartrate/AC 5-325 mg) 1 Tab Tab, 1 TAB PO QID PRN, #30 TAB Prov:FLORIDA BOWMAN MD 03/15/24 Oxycodone W/ Acetaminophen (Percocet 5/325MG) 1 Tab Tb, 1 TAB PO QID for 5 Days, #20 TAB Prov:BERENICE MANNING NP 02/18/24 Reported Medications Folic Acid (Folic Acid) 1 Mg Tab, 1 TAB PO DAILY 03/12/24 Multiple Vitamin (One-Daily Multi-Vitamin) 1 Tab Tab, 1 TAB PO DAILY 03/12/24 Pancreatic Enzymes (Creon) 12,000 Unt Cap, PO 02/17/24 Sucralfate (Sucralfate) 1 Gm Tab, 1 TAB PO QID 02/16/24 Rivaroxaban (Xarelto) 2.5 Mg Tab, PO 02/16/24 Magnesium Oxide (True Magnesium Oxide) 400 Mg Tab, 1 TAB PO DAILY 02/16/24 Ethambutol Hcl (Ethambutol Hcl) 100 Mg Tab, 800 MG PO DAILY 02/16/24 Rifampin (Rifampin) 150 Mg Cap, 150 MG PO DAILY 02/16/24 Azithromycin (Azithromycin) 250 Mg Tab, 500 MG PO DAILY 02/16/24 Information Source: Patient Mode of Arrival: Ambulatory Severity: Moderate Timing: Days Duration: Since onset Prehospital treatment: Other (see HPI) Past Medical History PAST MEDICAL HISTORY: Asthma Past Medical History (Other): chronic pancreatitis, PNA, pancreatic stones Surgical History: Denies all surgeries Family History Family History: Unknown Social History Smoker: Non-Smoker Alcohol: Sober Drugs: Denies Drug Use Lives In: Home Gastrointestinal: reports: abdominal pain All Other Systems: Reviewed and Negative (negative unless otherwise stated above or in HPI) Physical Exam General Appearance: No Apparent Distress, Normal HEENT: Normal ENT Inspection, Pharynx Normal, TMs Normal, Other (dry mucus membranes, otherwise normal ENT exam) Neck: Full Range of Motion, Non-Tender, Normal, Normal Inspection Respiratory: Chest Non-Tender, Lungs Clear, No Accessory Muscle Use, No Respiratory Distress, Normal Breath Sounds Cardiovascular: No Edema, No JVD, No Murmur, No Gallop, Normal Peripheral Pulses, Regular Rate/Rhythm Breast Exam: Deferred Gastrointestinal: Diffuse (tenderness ), No Organomegaly, No Pulsatile Mass, Normal Bowel Sounds, Soft, Tenderness (diffused ) Genitalia: Deferred Pelvic: Deferred Rectal: Deferred Extremities: No calf tenderness, Normal capillary refill, Normal inspection, Normal range of motion, Non-tender, No pedal edema Musculoskeletal : Apperance: Normal Neurologic: Alert, fund manager II-XII nml as Tested, No Motor Deficits, Normal Affect, Normal Mood, No Sensory Deficits Cerebellar Function: Normal Reflexes: Normal Skin: Dry, Normal Color, Warm Lymphatic: No Adenopathy Was a procedure done? Was a procedure done?: No Differential Dx Considerations may include: pancreatitis, gastritis, acute abdomen X-Ray, Labs, Meds, VS Vital Signs Date Time Temp Pulse Resp B/P (MAP) Pulse Ox O2 Delivery O2 Flow Rate FiO2 04/20/24 01:25 94 Room Air* 0 21 04/20/24 01:23 79 20 93/72 04/20/24 00:54 97.8 72 20 97/58 (71) 94 97.8 04/19/24 22:21 97.7 79 16 102/65 (77) 97 Lab Test 04/19/24 22:52 Range/Units White Blood Count 6.3 4.4-10.8 10^3/uL Red Blood Count 3.95 L 4.5-5.90 10^6/uL Hemoglobin 13.3 L 13.5-17.5 g/dL Hematocrit 39.3 L 41.0-53.0 % Mean Corpuscular Volume 99.6 80.0-100.0 fL Mean Corpuscular Hemoglobin 33.6 H 28.0-32.0 pg Mean Corpuscular Hemoglobin Concent 33.7 32.0-36.0 g/dL Red Cell Distribution Width 14.7 H 11.8-14.3 % Platelet Count 276 140-450 10^3/uL Mean Platelet Volume 6.6 L 6.9-10.8 fL Neutrophils (%) (Auto) 48.9 37.0-80.0 % Lymphocytes (%) (Auto) 35.6 10.0-50.0 % Monocytes (%) (Auto) 8.2 0.0-12.0 % Eosinophils (%) (Auto) 6.7 0.0-7.0 % Basophils (%) (Auto) 0.6 0.0-2.0 % Neutrophils # (Auto) 3.1 1.6-8.6 10 ^3/uL Lymphocytes # (Auto) 2.2 0.4-5.4 10 ^3/uL Monocytes # (Auto) 0.5 0-1.3 10 ^3/uL Eosinophils # (Auto) 0.4 0-0.8 10 ^3/uL Basophils # (Auto) 0 0-0.2 10 ^3/uL Nucleated Red Blood Cells 0.1 % Sodium Level 132 L 136-145 mmol/L Potassium Level 4.1 3.5-5.1 mmol/L Chloride Level 100 98-107 mmol/L Carbon Dioxide Level 27 20-31 mmol/L Anion Gap 5 5-15 Blood Urea Nitrogen 9 9-23 mg/dL Creatinine 0.65 L 0.700-1.30 mg/dL Glomerular Filtration Rate Calc 111 >90 mL/min BUN/Creatinine Ratio 13.8 10.0-20.0 Serum Glucose 101 74-106 mg/dL Calcium Level 10.0 8.7-10.4 mg/dL Total Bilirubin 0.3 0.2-1.0 mg/dL Aspartate Amino Transferase (AST) 16 13-40 U/L Alanine Aminotransferase (ALT) 14 7-40 U/L Alkaline Phosphatase 92 46-116 U/L Total Protein 7.0 5.7-8.2 g/dL Albumin 4.1 3.2-4.8 g/dL Lipase 130 H 12-53 U/L Current Medications Medications (Trade) Dose Ordered Sig/Desean Route Start Time Stop Time Status Last Admin Sodium Chloride 1,000 ml @ 1,000 mls/hr Q1H ONCE IVB 04/19/24 22:45 04/19/24 23:44 DC 04/20/24 01:24 Morphine Sulfate 4 mg ONCE ONCE IV 04/19/24 22:45 04/19/24 22:46 DC 04/20/24 01:23 Ondansetron HCl (Zofran) 4 mg ONCE ONCE IV 04/19/24 22:45 04/19/24 22:46 DC 04/20/24 01:24 [place] [id number] Ph: [phone] DIAGNOSTIC IMAGING Diagnostic Imaging Report : [id number] Signed PATIENT: BC STERLING ACCT: [id number] UNIT: [id number] : 1970 LOC: ER ROOM / BED: / AGE / SEX: 54 / M ADM STATUS: REG ER SERVICE 42 ORDERING PHYSICIAN: HORACIO KINNEY MD PROCEDURE(s): ABPL - CT AB PEL WO CON-NO ORAL OR IV REASON: abdominal pain ORDER NUMBER(s): [id number], ACCESSION NUMBER(s): [id number] Exam: CT CT AB PEL WO CON-NO ORAL OR IV History: abdominal pain Comparison Study: None available at time of dictation. Technique: Multidetector spiral CT of the abdomen was performed from lung bases to pubic symphysis. Imaging was performed without IV contrast. Axial, coronal and sagittal multiplanar reformats were obtained from the axial data set by the technologist. Radiation Dose : 1. Abdomen/Pelvis: CTDIvol 5 mGy, DLP 241 mGy*cm. Findings: Evaluation of solid organs is limited due to lack of intravenous contrast use. Lung Bases: No acute or significant lung base finding. Normal heart size. No pleural or pericardial effusion. Liver: The liver is normal in size. No focal lesions. Gallbladder and Biliary Tree: Unremarkable Spleen: Unremarkable Pancreas: Scattered punctate calcifications likely sequelae of chronic pancreatitis. 2.2 cm hypodense lesion which appears to be arising from the pancreatic head. Adrenal Glands: Unremarkable Kidneys: Kidneys are grossly normal without calculi or hydronephrosis. Bladder: Grossly unremarkable for degree of distention. Bowel: The stomach is grossly normal in appearance. Moderate fecal retention in the colon.. Normal appendix is visualized in the right lower quadrant without findings of appendicitis. Ascites: Absent Lymphadenopathy: No mesenteric, retroperitoneal or periportal lymphadenopathy. Abdominal Wall and Mesentery: Unremarkable. Vasculature: The visualized abdominal aorta is normal in size and caliber. Evaluation of abdominal and pelvic vessels is limited due to lack of intravenous contrast. Pelvic Organs: Unremarkable Musculoskeletal: No aggressive focal bony lesions, acute fractures or dislocation. IMPRESSION: Scattered calcifications throughout the pancreas due to sequelae of chronic pancreatitis. Hypodense lesion at the pancreatic head which is not well characterized on this noncontrast study measuring up to 2.2 cm. This can be further evaluated with nonemergent contrast-enhanced MRI or MRCP. Moderate fecal retention throughout the colon. END IMPRESSION: ATED BY: GEN BHAKTA DO DICTATED DATE/TIME: 04/19/242326 SIGNED BY: GEN BHAKTA DO SIGNED DATE/TIME: 04/19/242326 CC: Time of 1ST Reevaluation: 23:10 Reevaluation 1ST: Unchanged Patient Education/Counseling: Diagnosis, Treatment, Prognosis, Need For Follow Up Family Education/Counseling: No Family Present Additional Information I reviewed the following notes from patient's past medical encounters: ED physician note on 04/09/24 and hospital admission discharge summary on 04/10/24 The following tests were ordered, and results were reviewed by me: CT Abdomen/pelvis w/o contrast, lipase, CMP, CBC I reviewed and agreed with the following test results read by other providers: CT Abdomen/pelvis w/o contrast I discussed treatment and results with medical personnel. pt has chronic pancreatitis. although the lipase is mildly elevated, this can be seen in the setting of chronic pancreatitis. the ct goel support this diagnosis and his symptoms are consistent. in addition, there is a lesion, which needs to be further evaluated to rule out malignancy, pseudocyst, cyst, abscess. pt will be admitted Departure 1 Departure Time of Disposition: 23:10 Impression: Primary Impression: Acute on chronic pancreatitis Additional Impression: Pancreatic lesion Disposition: 09 ADMITTED INPATIENT Admit to: Med Surg Condition: Stable Discharged With: Self Critical Care Note Critical Care Time?: Yes (55 min-critical care time only) Critical care comment: due to concerns for patient's condition deteriorating, the care required my highest level of attention and readiness. i reviewed all relevant data, records, assessed the patient, ordered the proper tests, treatments, communicated with medical personnel, reassess the response and results. i also formulated a plan of care. total critical care time does not include any procedures Stability Stability form required: No Heart Score Heart Score: Heart Score Response (Comments) Value History N/A 0 EKG N/A 0 Age N/A 0 Risk Factors N/A 0 Troponin N/A 0 Total 0 I personally scribed for HORACIO KINNEY MD ([email or web address]) on 04/20/24 at 02:20. Electronically submitted by Rahul Renae ([email or web address]). HORACIO KINNEY MD Apr 20, 2024 02:20
[2024-04-20 03:22] LABS: Urine Bacteria None Seen /hpf (None Seen)
[2024-04-20 03:30] LABS: Urine Blood Negative /uL (Negative); Urine Clarity Clear (Clear); Urine Color Yellow (Yellow); Urine Protein, UAD Negative (Negative); Urine Specific Gravity 1.014 (1.001-1.035); Urine Squamous Epithelial Cell None Seen /hpf (<5); Urine Urobilinogen Normal (Negative); Urine WBC 1 /HPF (0-3)
[2024-04-20] MEDS ORDERED: ACETAMINOPHEN 325 MG TAB PO PRN (04:45)
[2024-04-20] MEDS ORDERED: ONDANSETRON HCL 4 MG/2 ML VIAL IV PRN (04:45)
[2024-04-20] MEDS ORDERED: ALBUTEROL SULF 2.5 MG/0.5ML(0.5%) NEB SOLN NEB PRN (04:45)
--- NOTE | 2024-04-20 05:09 | DVHHP2 ---
History of Present Illness Reason for Visit: Abdominal pain History of Present Illness 54-year-old male presents for evaluation of abdominal pain. Patient with a history of chronic pancreatitis presents with a two day history of diffuse abdominal pain. He reports having an appointment at [facility] until May to follow up for a mass/cyst on his pancreas. Reports episodes of nausea with vomiting. Denies fever or chills. No other acute complaints reported. Past Medical History Asthma, pancreatitis Past Surgical History Denies Family History Noncontributory Smoke: No ALCOHOL: none Drugs: None Lives: with Family Review of Systems Review of Systems Review of systems are currently negative otherwise addressed in HPI. Allergies: Coded Allergies: NO KNOWN ALLERGIES (Unverified , 02/16/24) Medications Current Medications Medications Dose Ordered Sig/Desean Route Start Time Stop Time Status Last Admin Dose Admin Proteolytic Enzymes 12,600 unit TIDWM PO 04/20/24 08:00 Albuterol 2.5 mg Q6HPRN PRN NEB 04/20/24 04:45 Acetaminophen/ Hydrocodone Bitart 1 tab Q4HP PRN PO 04/20/24 04:45 Ondansetron HCl 4 mg Q4HP PRN IV 04/20/24 04:45 Acetaminophen 650 mg Q6HP PRN PO 04/20/24 04:45 Morphine Sulfate 2 mg Q4HPRN PRN IV 04/20/24 04:45 Exam Vital Signs Vital Signs Date Time Temp Pulse Resp B/P (MAP) Pulse Ox O2 Delivery O2 Flow Rate FiO2 04/20/24 02:41 69 20 91/60 (70) 94 04/20/24 01:25 Room Air* 0 21 04/20/24 00:54 97.8 97.8 Exam Gen: 54-year-old male in mild distress Skin: Warm, dry, normal color and texture, no rash. HEENT: Normocephalic atraumatic, mucous membranes moist and pink. Neck: Cervical and supraclavicular nodes normal without enlargement, trachea is midline, thyroid gland is normal without masses. Pulmonary: Clear to auscultation and percussion bilaterally. Cardiac: Regular rate and rhythm. No murmur Abdomen: Soft, diffuse tenderness, nondistended, bowel sounds present all 4 quadrants, no guarding, no rigidity, no organomegaly. Extremities: No cyanosis, clubbing, no edema Neuro: Cranial nerves II through XII grossly intact, normal affect and speech, no focal motor deficits. Labs/Xrays ORDERING PHYSICIAN: HORACIO KINNEY MD PROCEDURE(s): ABPL - CT AB PEL WO CON-NO ORAL OR IV REASON: abdominal pain ORDER NUMBER(s): [id number], ACCESSION NUMBER(s): [id number] Exam: CT CT AB PEL WO CON-NO ORAL OR IV History: abdominal pain Comparison Study: None available at time of dictation. Technique: Multidetector spiral CT of the abdomen was performed from lung bases to pubic symphysis. Imaging was performed without IV contrast. Axial, coronal and sagittal multiplanar reformats were obtained from the axial data set by the technologist. Radiation Dose : 1. Abdomen/Pelvis: CTDIvol 5 mGy, DLP 241 mGy*cm. Findings: Evaluation of solid organs is limited due to lack of intravenous contrast use. Lung Bases: No acute or significant lung base finding. Normal heart size. No pleural or pericardial effusion. Liver: The liver is normal in size. No focal lesions. Gallbladder and Biliary Tree: Unremarkable Spleen: Unremarkable Pancreas: Scattered punctate calcifications likely sequelae of chronic pancreatitis. 2.2 cm hypodense lesion which appears to be arising from the pancreatic head. Adrenal Glands: Unremarkable Kidneys: Kidneys are grossly normal without calculi or hydronephrosis. Bladder: Grossly unremarkable for degree of distention. Bowel: The stomach is grossly normal in appearance. Moderate fecal retention in the colon.. Normal appendix is visualized in the right lower quadrant without findings of appendicitis. Ascites: Absent Lymphadenopathy: No mesenteric, retroperitoneal or periportal lymphadenopathy. Abdominal Wall and Mesentery: Unremarkable. Vasculature: The visualized abdominal aorta is normal in size and caliber. Evaluation of abdominal and pelvic vessels is limited due to lack of intravenous contrast. Pelvic Organs: Unremarkable Musculoskeletal: No aggressive focal bony lesions, acute fractures or dislocation. IMPRESSION: Scattered calcifications throughout the pancreas due to sequelae of chronic pancreatitis. Hypodense lesion at the pancreatic head which is not well characterized on this noncontrast study measuring up to 2.2 cm. This can be further evaluated with nonemergent contrast-enhanced MRI or MRCP. Moderate fecal retention throughout the colon. END IMPRESSION: ATED BY: GEN FONSECA DO DICTATED DATE/TIME: 04/19/24 2327 Labs Test 04/20/24 02:20 04/19/24 22:52 Range/Units Urine Color Yellow Yellow Urine Clarity Clear Clear Urine pH 6.0 5.0-9.0 Urine Specific [place] 1.014 1.001-1.035 Urine Protein Negative Negative Urine Ketones Negative Negative Urine Blood Negative Negative /uL Urine Nitrite Negative Negative Urine Bilirubin Negative Negative Urine Urobilinogen Normal Negative mg/dL Urine Leukocyte Esterase Negative Negative /uL Urine RBC 1 0 - 3 /hpf Urine Microscopic WBC 1 0-3 /HPF Urine Squamous Epithelial Cells None seen <5 /hpf Urine Bacteria None seen None Seen /hpf Urine Glucose Normal Normal mg/dL White Blood Count 6.3 4.4-10.8 10^3/uL Red Blood Count 3.95 L 4.5-5.90 10^6/uL Hemoglobin 13.3 L 13.5-17.5 g/dL Hematocrit 39.3 L 41.0-53.0 % Mean Corpuscular Volume 99.6 80.0-100.0 fL Mean Corpuscular Hemoglobin 33.6 H 28.0-32.0 pg Mean Corpuscular Hemoglobin Concent 33.7 32.0-36.0 g/dL Red Cell Distribution Width 14.7 H 11.8-14.3 % Platelet Count 276 140-450 10^3/uL Mean Platelet Volume 6.6 L 6.9-10.8 fL Neutrophils (%) (Auto) 48.9 37.0-80.0 % Lymphocytes (%) (Auto) 35.6 10.0-50.0 % Monocytes (%) (Auto) 8.2 0.0-12.0 % Eosinophils (%) (Auto) 6.7 0.0-7.0 % Basophils (%) (Auto) 0.6 0.0-2.0 % Neutrophils # (Auto) 3.1 1.6-8.6 10 ^3/uL Lymphocytes # (Auto) 2.2 0.4-5.4 10 ^3/uL Monocytes # (Auto) 0.5 0-1.3 10 ^3/uL Eosinophils # (Auto) 0.4 0-0.8 10 ^3/uL Basophils # (Auto) 0 0-0.2 10 ^3/uL Nucleated Red Blood Cells 0.1 % Sodium Level 132 L 136-145 mmol/L Potassium Level 4.1 3.5-5.1 mmol/L Chloride Level 100 98-107 mmol/L Carbon Dioxide Level 27 20-31 mmol/L Anion Gap 5 5-15 Blood Urea Nitrogen 9 9-23 mg/dL Creatinine 0.65 L 0.700-1.30 mg/dL Glomerular Filtration Rate Calc 111 >90 mL/min BUN/Creatinine Ratio 13.8 10.0-20.0 Serum Glucose 101 74-106 mg/dL Calcium Level 10.0 8.7-10.4 mg/dL Total Bilirubin 0.3 0.2-1.0 mg/dL Aspartate Amino Transferase (AST) 16 13-40 U/L Alanine Aminotransferase (ALT) 14 7-40 U/L Alkaline Phosphatase 92 46-116 U/L Total Protein 7.0 5.7-8.2 g/dL Albumin 4.1 3.2-4.8 g/dL Lipase 130 H 12-53 U/L Assessment/Plan Assessment/Plan Assessment Acute on chronic pancreatitis Chronic pancreatic cyst Chronic pain syndrome Plan Admit the patient to Med surge to the hospitalist Clear liquid diet Resume home medications Pain management Continue treatment per orders. Plan discussed with: Patient My Orders Orders - PATRICIO KIRBY Procedure Category Date Status Time Pancreatic Enzymes PHA 04/20/24 In Process Capsule (Pancreaze Ca 08:00 Albuterol Medneb PHA 04/20/24 In Process (Ventolin Medneb) 04:45 Basic Metabolic Panel LAB 04/21/24 Verified 04:00 Admit ADMIT 04/20/24 Transmitted 04:35 Hydrocodone-Acet PHA 04/20/24 In Process 5/325mg Tab ([place] 04:45 Ondansetron Hcl PHA 04/20/24 In Process (Zofran) 04:45 Condition: Stable JAMES 04/20/24 In Process 04:35 Acetaminophen Tablet PHA 04/20/24 In Process (Tylenol Tablet) 04:45 Clear Liq Diet DIET 04/20/24 Transmitted Breakfast Bedrest With Bathroom JAMES 04/20/24 In Process Privileg 04:35 Morphine Sulfate PHA 04/20/24 In Process Injection 04:45 Date of Service: Apr 20, 2024 Billing Provider: PATRICIO KIRBY Common Visit Codes: [id number] INP/OBS CARE (MOD) PATRICIO KIRBY AGACNP Apr 20, 2024 05:09
[2024-04-20] MEDS: MORPHINE SULFATE INJ 2 MG/ml SYRG IV PRN (07:52)
[2024-04-20] MEDS: HYDROcodone-ACET 5/325MG TAB PO PRN (08:48)
[2024-04-20] MEDS: PANTOPRAZOLE 40 MG/10 ML VIAL INJ IV ONE (10:53)
[2024-04-20 11:05] LABS: Amphetamine Screen, Urine Neg (NEGATIVE)
[2024-04-20 11:06] LABS: Cannabinoid Screen, Urine Pos (NEGATIVE)
[2024-04-20 11:08] LABS: Barbiturate Scree,Urine Neg (NEGATIVE); Benzodiazephine Screen, Urine Neg (NEGATIVE); Cocaine Screen, Urine Neg (NEGATIVE); Opiate Scree,Urine Pos (NEGATIVE); Phencyclidine Screen, Urine Neg (NEGATIVE)
[2024-04-20] MEDS: PANCREATIC ENZYMES 4200 UNIT CAP PO SCH (12:00)
[2024-04-20] MEDS ORDERED: MORPHINE SULFATE 4 MG/ML SYR/VIAL IV PRN (12:15)
[2024-04-20] MEDS: MORPHINE SULFATE 4 MG/ML SYR/VIAL IV PRN (12:50)
--- NOTE | 2024-04-20 14:37 | DVHPNRES ---
Progress Note Date Seen: Apr 20, 2024 Resident Creating Document: EVE MARTÍNEZ RESIDENT Has the PT tested + for MRSA If YES, has PT been informed?: No Medical Necessity Reason Pt with a Central, PICC or Fol: No Subjective Review of Systems 54-year-old male past medical history pancreatitis and asthma with chief complaint of abdominal pain, he states epigastric areas has been worse since last night. He was seen here in beginning of the month and he was seen by ER team and discharged home He is being f/u in [facility]. He states he was supposed to do a surgery he was very poor historian not sure what kind of surgery needs to be done but he says they told him he needs to gain weight before they can proceed to any possible surgeries. Patient currently denies any fever no chest pain no shortness a breath no vomiting no diarrhea. He states nothing makes it better nothing makes worse since he is constant pain. Objective vital signs Vital Sign Date Time Temp Pulse Resp B/P (MAP) Pulse Ox O2 Delivery O2 Flow Rate FiO2 04/20/24 12:50 75 16 112/70 04/20/24 10:00 98 Room Air* 0 21 04/20/24 08:54 97.6 97.6 Total Intake and Output 04/19/24 04/19/24 04/20/24 15:00 23:00 07:00 Intake Total 1000 ml Balance 1000 ml medications Current Medications Medications Dose Ordered Sig/Desean Route Start Time Stop Time Status Last Admin Dose Admin Proteolytic Enzymes 12,600 unit TIDWM PO 04/20/24 08:00 04/20/24 14:21 12,600 UNIT Albuterol 2.5 mg Q6HPRN PRN NEB 04/20/24 04:45 Cancel Acetaminophen/ Hydrocodone Bitart 1 tab Q4HP PRN PO 04/20/24 04:45 04/20/24 08:48 1 TAB Ondansetron HCl 4 mg Q4HP PRN IV 04/20/24 04:45 Acetaminophen 650 mg Q6HP PRN PO 04/20/24 04:45 Pantoprazole Sodium 40 mg DAILY IV 04/21/24 10:00 Polyethylene Glycol 17 gm DAILY PO 04/21/24 10:00 Morphine Sulfate 4 mg Q4HPRN PRN IV 04/20/24 12:45 04/20/24 12:50 4 MG Examination Gen: 54-year-old male in mild distress Skin: Warm, dry, normal color and texture, no rash. HEENT: Normocephalic atraumatic, mucous membranes moist and pink. Neck: Cervical and supraclavicular nodes normal without enlargement, trachea is midline, thyroid gland is normal without masses. Pulmonary: Clear to auscultation and percussion bilaterally. Cardiac: Regular rate and rhythm. No murmur Abdomen: Soft, tenderness in the epigastric area , nondistended, bowel sounds present all 4 quadrants, no guarding, no rigidity, no organomegaly. Extremities: No cyanosis, clubbing, no edema Neuro: Cranial nerves II through XII grossly intact, normal affect and speech, no focal motor deficits. laboratory and microbiology Laboratory Tests 04/19/24 22:52 Test 04/19/24 22:52 Range/Units Serum Glucose 101 74-106 mg/dL Problem List/Assessment/Plan Problem List/Assessment/Plan #Acute on chronic pancreatitis #Chronic pancreatic cyst #Chronic pain syndrome #Constipation Clear liquid diet Morphine 4 mg q4h [place] 5 mg Miralax Pancreatic enzymes Patient is being f/u with [facility] due to chornic pancreatitis, patient is advised to continue f/u there, also pain managment as out patient Case discussed with Dr Shepherd Time spent on care 23 min Plan discussed with: Patient, Other (rn) My Orders My Orders Orders - EVE MARTÍNEZ Procedure Category Date Status Time Carbohydrate Antigen LAB 04/20/24 In Process 19-9 Pantoprazole PHA 04/21/24 In Process (Protonix) 10:00 Polyethylene Glycol PHA 04/21/24 In Process 17g Powder (Miralax 10:00 Morphine Sulfate PHA 04/20/24 In Process Injection 12:45 Date of Service: Apr 20, 2024 Billing Provider: COREY SHEPHERD MD Common Visit Codes: [id number] INP/OBS CARE(HIGH) EVE MARTÍNEZ RESIDENT Apr 20, 2024 14:37 COREY SHEPHERD MD Apr 23, 2024 09:19
[2024-04-20] MEDS: SODIUM CHLORIDE 0.9% 500 ML IV ONE (17:15)
[2024-04-21 01:00] VITALS: BP 113/77; PULSE 82; RESP 18; TEMP 98.3; O2SAT 93
[2024-04-21 05:00] VITALS: BP 105/54; PULSE 60; RESP 18; TEMP 98.4; O2SAT 94
[2024-04-21 07:40] LABS: Basophils # (auto) 0 10 ^3/uL (0-0.2); Basophils % (auto) 1.1 % (0.0-2.0); Eosinophils # (auto) 0.4 10 ^3/uL (0-0.8); Eosinophils % (auto) 8.6 % (0.0-7.0); Hematocrit 35.4 % (41.0-53.0); Hemoglobin 12.1 g/dL (13.5-17.5); Lymphocytes # (auto) 1.8 10 ^3/uL (0.4-5.4); Lymphocytes % (auto) 41.2 % (10.0-50.0); Mean Corpuscular Hemoglobin 33.7 pg (28.0-32.0); Mean Corpuscular Hgb Conc. 34.3 g/dL (32.0-36.0); Mean Corpuscular Volume 98.2 fL (80.0-100.0); Monocytes # (auto) 0.3 10 ^3/uL (0-1.3); Monocytes % (auto) 7.9 % (0.0-12.0); Neutrophils # (auto) 1.8 10 ^3/uL (1.6-8.6); Neutrophils % (auto) 41.2 % (37.0-80.0); Nucleated Red Blood Cells % 0.2 %; Platelet Count (auto) 249 10^3/uL (140-450); Red Cell Distribution Width 14.7 % (11.8-14.3); White Blood Cell 4.4 10^3/uL (4.4-10.8)
[2024-04-21 07:44] LABS: Alanine Aminotransferase 12 U/L (7-40); Albumin 3.5 g/dL (3.2-4.8); Alkaline Phosphatase 80 U/L (46-116); Anion Gap 5 (5-15); Calcium 9.5 mg/dL (8.7-10.4); Carbon Dioxide 25 mmol/L (20-31); Sodium 138 mmol/L (136-145)
[2024-04-21 07:45] LABS: Total Protein 5.9 g/dL (5.7-8.2)
[2024-04-21 07:50] LABS: Aspartate Aminotransferase 11 U/L (13-40); Bilirubin, Total 0.3 mg/dL (0.2-1.0); Blood Urea Nitrogen < 5 mg/dL (9-23); Chloride 108 mmol/L (98-107); Glucose 109 mg/dL (74-106)
[2024-04-21 08:00] VITALS: PULSE 89; RESP 17; O2SAT 96
[2024-04-21 08:47] VITALS: BP 107/72; PULSE 89; RESP 17; TEMP 98.1; O2SAT 93
[2024-04-21] MEDS: POLYETHYLENE GLYCOL 17 GM PWDR PO SCH (10:09)
[2024-04-21] MEDS: PANTOPRAZOLE 40 MG/10 ML VIAL INJ IV SCH (10:11)
[2024-04-21] MEDS ORDERED: ACET-1882 PO (12:41)
[2024-04-21] MEDS ORDERED: IBUP-1456 PO (12:41)
[2024-04-21 12:42] VITALS: BP 113/77; PULSE 91; RESP 17; TEMP 97.5; O2SAT 98
[2024-04-21] MEDS ORDERED: OXY20CRT PO (14:43)
--- NOTE | 2024-04-21 19:39 | DVHDSRES ---
Discharge Summary Date of Admission Resident Creating Document: EVE MARTÍNEZ RESIDENT Apr 20, 2024 at 04:35 Date of Discharge: Apr 21, 2024 Admitting Diagnosis #Acute on chronic pancreatitis Labs/Diagnostic Data: Laboratory Results Test 04/21/24 06:00 04/20/24 08:06 04/20/24 02:20 04/19/24 22:52 White Blood Count 4.4 10^3/uL (4.4-10.8) Red Blood Count 3.60 10^6/uL (4.5-5.90) Hemoglobin 12.1 g/dL (13.5-17.5) Hematocrit 35.4 % (41.0-53.0) Mean Corpuscular Volume 98.2 fL (80.0-100.0) Mean Corpuscular Hemoglobin 33.7 pg (28.0-32.0) Mean Corpuscular Hemoglobin Concent 34.3 g/dL (32.0-36.0) Red Cell Distribution Width 14.7 % (11.8-14.3) Platelet Count 249 10^3/uL (140-450) Mean Platelet Volume 7.1 fL (6.9-10.8) Neutrophils (%) (Auto) 41.2 % (37.0-80.0) Lymphocytes (%) (Auto) 41.2 % (10.0-50.0) Monocytes (%) (Auto) 7.9 % (0.0-12.0) Eosinophils (%) (Auto) 8.6 % (0.0-7.0) Basophils (%) (Auto) 1.1 % (0.0-2.0) Neutrophils # (Auto) 1.8 10 ^3/uL (1.6-8.6) Lymphocytes # (Auto) 1.8 10 ^3/uL (0.4-5.4) Monocytes # (Auto) 0.3 10 ^3/uL (0-1.3) Eosinophils # (Auto) 0.4 10 ^3/uL (0-0.8) Basophils # (Auto) 0 10 ^3/uL (0-0.2) Nucleated Red Blood Cells 0.2 % Sodium Level 138 mmol/L (136-145) Potassium Level 4.0 mmol/L (3.5-5.1) Chloride Level 108 mmol/L (98-107) Carbon Dioxide Level 25 mmol/L (20-31) Anion Gap 5 (5-15) Blood Urea Nitrogen < 5 mg/dL (9-23) Creatinine 0.50 mg/dL (0.700-1.30) Glomerular Filtration Rate Calc 120 mL/min (>90) BUN/Creatinine Ratio 10.0 (10.0-20.0) Serum Glucose 109 mg/dL (74-106) Calcium Level 9.5 mg/dL (8.7-10.4) Total Bilirubin 0.3 mg/dL (0.2-1.0) Aspartate Amino Transferase (AST) 11 U/L (13-40) Alanine Aminotransferase (ALT) 12 U/L (7-40) Alkaline Phosphatase 80 U/L (46-116) Total Protein 5.9 g/dL (5.7-8.2) Albumin 3.5 g/dL (3.2-4.8) Carcinoembryonic Antigen 2.80 ng/mL (<=5.0) CA 19-9 Antigen 37 U/mL (0-35) Plasma/Serum Blood Alcohol < 3.0 mg/dL (<10) Urine Color Yellow (Yellow) Urine Clarity Clear (Clear) Urine pH 6.0 (5.0-9.0) Urine Specific [place] 1.014 (1.001-1.035) Urine Protein Negative (Negative) Urine Ketones Negative (Negative) Urine Blood Negative /uL (Negative) Urine Nitrite Negative (Negative) Urine Bilirubin Negative (Negative) Urine Urobilinogen Normal mg/dL (Negative) Urine Leukocyte Esterase Negative /uL (Negative) Urine RBC 1 /hpf (0 - 3) Urine Microscopic WBC 1 /HPF (0-3) Urine Squamous Epithelial Cells None seen /hpf (<5) Urine Bacteria None seen /hpf (None Seen) Urine Glucose Normal mg/dL (Normal) Urine Opiates Screen Pos (NEGATIVE) Urine Fentanyl Screen Neg (NEGATIVE) Urine Barbiturates Screen Neg (NEGATIVE) Urine Phencyclidine Screen Neg (NEGATIVE) Urine Amphetamines Screen Neg (NEGATIVE) Urine Benzodiazepines Screen Neg (NEGATIVE) Urine Cocaine Screen Neg (NEGATIVE) Urine Cannabinoids Screen Pos (NEGATIVE) Lipase 130 U/L (12-53) Other Laboratory Tests 04/21/24 06:00 Brief Hx & Hospital Course: A 54-year-old male with a history of pancreatitis, MAC, hypercoagulable state and asthma presented with worsening epigastric abdominal pain over the past night. The patient reported chronic symptoms and ongoing follow-up at [place] for chronic pancreatitis and pancreatic cysts. He denied any fever, chest pain, shortness of breath, vomiting, or diarrhea. His hospital course was primarily focused on managing pain and constipation, with the patient maintained on a clear liquid diet and started on pancreatic enzymes. Imaging and labs showed no acute findings requiring immediate intervention. The patient was treated with morphine for pain, polyethylene glycol (Miralax) for constipation, and pancreatic enzyme supplementation. He was advised to follow up as an outpatient at [facility] for ongoing management of his chronic conditions, including chronic pain and pancreatic cyst evaluation. He is to continue a clear liquid diet until reevaluation. Pain management will be coordinated with outpatient care. Gen: 54-year-old male in mild distress Skin: Warm, dry, normal color and texture, no rash. HEENT: Normocephalic atraumatic, mucous membranes moist and pink. Neck: Cervical and supraclavicular nodes normal without enlargement, trachea is midline, thyroid gland is normal without masses. Pulmonary: Clear to auscultation and percussion bilaterally. Cardiac: Regular rate and rhythm. No murmur Abdomen: Soft, tenderness in the epigastric area , nondistended, bowel sounds present all 4 quadrants, no guarding, no rigidity, no organomegaly. Extremities: No cyanosis, clubbing, no edema Neuro: Cranial nerves II through XII grossly intact, normal affect and speech, no focal motor deficits. The case was discussed with Dr. Shepherd, and the discharge plan was reviewed with the patient. Time spent on care 23 min Operations or Procedures Exam: CT CT AB PEL WO CON-NO ORAL OR IV History: abdominal pain Comparison Study: None available at time of dictation. Technique: Multidetector spiral CT of the abdomen was performed from lung bases to pubic symphysis. Imaging was performed without IV contrast. Axial, coronal and sagittal multiplanar reformats were obtained from the axial data set by the technologist. Radiation Dose : 1. Abdomen/Pelvis: CTDIvol 5 mGy, DLP 241 mGy*cm. Findings: Evaluation of solid organs is limited due to lack of intravenous contrast use. Lung Bases: No acute or significant lung base finding. Normal heart size. No pleural or pericardial effusion. Liver: The liver is normal in size. No focal lesions. Gallbladder and Biliary Tree: Unremarkable Spleen: Unremarkable Pancreas: Scattered punctate calcifications likely sequelae of chronic pancreatitis. 2.2 cm hypodense lesion which appears to be arising from the pancreatic head. Adrenal Glands: Unremarkable Kidneys: Kidneys are grossly normal without calculi or hydronephrosis. Bladder: Grossly unremarkable for degree of distention. Bowel: The stomach is grossly normal in appearance. Moderate fecal retention in the colon.. Normal appendix is visualized in the right lower quadrant without findings of appendicitis. Ascites: Absent Lymphadenopathy: No mesenteric, retroperitoneal or periportal lymphadenopathy. Abdominal Wall and Mesentery: Unremarkable. Vasculature: The visualized abdominal aorta is normal in size and caliber. Evaluation of abdominal and pelvic vessels is limited due to lack of intravenous contrast. Pelvic Organs: Unremarkable Musculoskeletal: No aggressive focal bony lesions, acute fractures or dislocation. IMPRESSION: Scattered calcifications throughout the pancreas due to sequelae of chronic pancreatitis. Hypodense lesion at the pancreatic head which is not well characterized on this noncontrast study measuring up to 2.2 cm. This can be further evaluated with nonemergent contrast-enhanced MRI or MRCP. Moderate fecal retention throughout the colon. Condition at Discharge: Stable Final Diagnosis/Problems List #Acute on chronic pancreatitis #Chronic pancreatic cyst #Chronic pain syndrome #Constipation #Ho MAC pneumonia #Hypercoagulable state Discharge Disposition: Home Discharge Instruct/Medications Diet: See Comment Diet comment: low fat Activity: Light activity Follow Up/Referral: f/u pcp and jaciel chatterjee, patient is advised to fu with pain managment Medications: see prescription Discharge Statement: "Patient was advised to return to the ER or call 911 if any headaches, dizziness, shortness of breath, chest pain, abdominal pain, bleeding, fevers, or worsening of medical condition. Patient was counseled about treatment plan, medications, possible side effects, patientverbalized understanding. All questions were answered to the best of my ability. This discharge took greater then 30 minutes in planning, reviewing documentation, counseling the patient, and discussing with other team members." ASSESSMENT ASSESSMENT Assessment chronic pancreatitis Date of Service: Apr 21, 2024 Billing Provider: COREY SHEPHERD MD Common Visit Codes: 07547-CCN/OBS DISCH DAY >30min EVE MARTÍNEZ RESIDENT Apr 21, 2024 19:39 COREY SHEPHERD MD Apr 23, 2024 09:20
== END 2024-04-21 12:55 | disposition home or self-care (01) | DRG 282 ==
LOC: ER 22:06 → OVERFLOW 04-20 04:35 → WEST WING 04-20 04:40
PROVIDERS: ADMIT Student in an Organized Health Care Education/Training Program; ATTEND Anesthesiology
DX: K85.90 Acute pancreatitis without necrosis or infection, unspecified (principal); G89.4 Chronic pain syndrome; K59.00 Constipation, unspecified; J45.909 Unspecified asthma, uncomplicated; K86.2 Cyst of pancreas; K86.1 Other chronic pancreatitis; Z87.891 Personal history of nicotine dependence; Z79.899 Other long term (current) drug therapy; Z79.891 Long term (current) use of opiate analgesic
CPT/HCPCS: 36415; 74176; 80053; 80307; 80320; 81001; 82378; 83690; 85025; 86301; 99291; G0378; J2405; J2470

== ENCOUNTER 2024-05-15 18:30 | Inpatient (IN) | payer MEDICAID ==
[~2024-05-15] VITALS: Ht 167.6 cm; Wt 56.0 kg
[~2024-05-15 18:30] MED LIST changes: +ACET-1882 PO; +IBUP-1456 PO; +MULT-1056 PO; +OXY20CRT PO
--- NOTE | 2024-05-15 19:27 | ED.PDOC ---
GI ASSESSMENT HPI Comments HPI: Poor Historian. 54-year-old male presents to emergency department because he left against medical advice this morning after he was admitted for pancreatitis. Patient stated that he had an appointment that he must go to at [facility] to establish outpatient procedure for possible ERCP. Patient was admitted last night to the hospital with the following: Assessment/Plan Assessment/Plan Assessment/Plan: Intractable abdominal pain likely due to pancreatitis Nodular airspace disease in the left lower lung Labs Pain management NS 1 L given ED Antiemetics Elevated lipase UA CT abdominal pelvis with and without contrast CT chest ordered IV fluids IV antibiotics-Zosyn A.m. labs Amylase CRP Patient complains of persistent epigastric pain unresolved. Denies any active nausea or vomiting. Denies any other acute symptoms. Past Medical History:Pancreatitis, Pneumonia and Anxiety Past Surgical History: Denies any REVIEW OF SYSTEMS: CONSTITUTIONAL: Denies acute: fever, diaphoresis, chills, generalized weakness. HEAD: Denies acute: headache, photophobia Eyes: Denies acute: Double vision, vision loss, eye pain, eye discharge. EARS: Denies acute: tinnitus, hearing loss, ear discharge, ear pain, THROAT: Denies acute: sore throat, swelling, difficulty swallowing , pain with swallowing, change in voice. NECK: Denies acute: neck pain, neck swelling, stiff neck. HEART: Denies acute : chest pain, palpitations, LUNGS: Denies acute: SOB, wheezing, cough, hemoptysis ABDOMEN: Denies acute: Nausea, Vomiting, diarrhea, melena , hematemesis, hematochezia SKIN: Denies acute: rash, redness, lesions, itchiness. EXTREMITIES: Denies acute: calf pain, numbness, tingling, weakness, denies pain in extremity. Denies acute: Low back pain. Neuro: Denies acute: focal neurological deficit, motor or sensory focal neurological deficit, tremors, seizure like activity, confusion, dizziness, change in mental status, loss of bowel or bladder function, cauda equina like symptoms. : Denies acute: dysuria, hematuria, flank pain, increase in urinary frequency. PSYCH: Denies acute: hallucination, suicidal ideation, homicidal ideation. PHYSICAL EXAM: General: no acute distress, awake and alert. Head: normocephalic, atraumatic. Neck: supple, trachea is midline, no swelling. Throat: Normal phonation. Eyes:, no erythema, no purulent discharge, no proptosis, no icterus. Heart: regular rate, regular rhythm, no significant murmur appreciated. Lungs: no apparent respiratory distress, Able to speak in full sentences. No wheezing, no rhonchi, no crackles. No stridors Clear to auscultation bilaterally. Abdomen: Epigastric tender to palpation, non distended, soft, no guarding, no rebound, + bowel sounds. Neuro: Awake, Alert, oriented to name, self, situation, follows commands GCS=15. Speech is normal. Skin: no petechia, no purpura, no cyanosis, non-pale, not jaundice. Lower extremities: --no - Pitting edema no deformity, no focal swelling, no calf TTP. Makes eye contact. moves all four extremities. Face: no apparent facial droop. Ambulating in the ED independently. ED COURSE: [place] [address] Ph: [phone] DIAGNOSTIC IMAGING Diagnostic Imaging Report : [id number] Signed PATIENT: BC STERLING ACCT: [id number] UNIT: [id number] : 1970 LOC: OVERFLOW ROOM / BED: [address] [place] [address] / AGE / SEX: 54 / M ADM STATUS: ADM IN SERVICE [id number] ORDERING PHYSICIAN: NEYMAR GOULD PROCEDURE(s): [facility] - CT CHST AB PLV W CON-ORAL & IV REASON: CHEST AND ABDOMINAL PAIN ORDER NUMBER(s): [id number], ACCESSION NUMBER(s): [id number] Exam: CT CT CHST AB PLV W CON-ORAL IV History: CHEST AND ABDOMINAL PAIN Comparison Study:05/14/24 Technique: Multidetector spiral CT of the chest, abdomen and pelvis was performed from lower neck to pubic symphysis. 80 cc Omni 300 intravenous contrast was administered during this examination. Arterial imaging was obtained. Axial, coronal and sagittal multiplanar reformats were performed by the technologist on a separate workstation. Radiation Dose : Chest/Abdomen/Pelvis: CTDIvol 7.0 mGy, DLP 544.22 mGy*cm. Findings: Lower neck: Normal thyroid. Lungs: Bilateral nodules and cavitary nodules with an upper lobe predominance, largest in the right upper lobe measures up to 40 mm. Left apical cavity measuring up to 42 mm. Heart/Vascular Structures: Normal heart size. No pericardial effusion. Lymph Nodes: Mediastinal and hilar lymphadenopathy. Pleura: No pleural effusion or significant pneumothorax. Liver: The liver is normal in size. No focal lesions. Normal hepatic vascular enhancement. Gallbladder and biliary Tree: Unremarkable Spleen: Unremarkable Pancreas: Coarse calcifications throughout the pancreas with dilated pancreatic duct. Cystic lesion in the head of the pancreas measuring up to 23 mm. Adrenal Glands: Unremarkable Kidneys: Kidneys demonstrate normal symmetric enhancement without focal lesions, calculi or hydronephrosis. Bladder: Unremarkable Bowel: The stomach is grossly normal in appearance. Small bowel and colon are normal in caliber and distribution. The appendix is not visualized; however, no secondary findings of acute appendicitis identified. Ascites: Absent Lymphadenopathy: No mesenteric, retroperitoneal or periportal lymphadenopathy. Abdominal wall and Mesentery: Unremarkable. Vasculature: The visualized abdominal aorta is normal in size and caliber. Abdominal and pelvic vessels demonstrate normal enhancement. Pelvic Organs: Unremarkable Musculoskeletal: No aggressive focal bony lesions, acute fractures or dislocation. IMPRESSION: 1. Multiple nodules and cavitary nodules in both lungs with an upper lobe predominance. Mediastinal and hilar lymphadenopathy. Differential considerations include cavitary pneumonia, fungal pneumonia, septic emboli, and neoplastic etiologies. Clinical correlation and continued follow-up is recommended. CT-g uided biopsy could be performed if clinically indicated. 2. Changes of chronic pancreatitis. Cystic lesion in the head pancreas. Consider MRI of the abdomen with contrast on a nonemergent basis. No definite acute process in the abdomen identified. HS:Y ATED BY: ARNEL BRADSHAW MD DICTATED DATE/TIME: 05/14/241738 SIGNED BY: ARNEL BRADSHAW MD SIGNED DATE/TIME: 05/14/241738 CC: Chief Complaint: Abdominal Pain Time Seen by MD: 18:32 Primary Care Provider: [facility] Reviewed Notes: Nurses Notes, Allergies Allergies: Coded Allergies: NO KNOWN ALLERGIES (Unverified , 02/16/24) Home Meds Active Scripts Oxycodone Hcl (OxyCONTIN ER Tablet) 20 Mg Tb, 1 TAB PO BID for 5 Days, #10 TAB Prov:COREY SHEPHERD MD 04/21/24 Acetaminophen (Acetaminophen) 325 Mg Tab, 650 MG PO Q4HR for 30 Days, #360 TAB Prov:KAIA LuzEVE RESIDENT 04/21/24 Ibuprofen (Ibuprofen) 800 Mg Tab, 800 MG PO Q8HP PRN for 10 Days, #30 TAB Prov:EVE MARTÍNEZ RESIDENT 04/21/24 Hydrocodone-Acetaminophen (Hydrocodone Bitartrate/AC 5-325 mg) 1 Tab Tab, 1 TAB PO QID PRN, #30 TAB Prov:[place]OR[place] BOWMAN MD 03/15/24 Oxycodone W/ Acetaminophen (Percocet 5/325MG) 1 Tab Tb, 1 TAB PO QID for 5 Days, #20 TAB Prov:BERENICE MANNING NP 02/18/24 Reported Medications Multiple Vitamin (Multivitamin) 1 Tab Tab, 1 TAB PO DAILY 05/14/24 Folic Acid (Folic Acid) 1 Mg Tab, 1 TAB PO DAILY 03/12/24 Multiple Vitamin (One-Daily Multi-Vitamin) 1 Tab Tab, 1 TAB PO DAILY 03/12/24 Pancreatic Enzymes (Creon) 12,000 Unt Cap, PO 02/17/24 Sucralfate (Sucralfate) 1 Gm Tab, 1 TAB PO QID 02/16/24 Rivaroxaban (Xarelto) 2.5 Mg Tab, PO 02/16/24 Magnesium Oxide (True Magnesium Oxide) 400 Mg Tab, 1 TAB PO DAILY 02/16/24 Ethambutol Hcl (Ethambutol Hcl) 100 Mg Tab, 800 MG PO DAILY 02/16/24 Rifampin (Rifampin) 150 Mg Cap, 150 MG PO DAILY 02/16/24 Azithromycin (Azithromycin) 250 Mg Tab, 500 MG PO DAILY 02/16/24 Information Source: Patient Mode of Arrival: Ambulatory Past Medical History PAST MEDICAL HISTORY: Anxiety Past Medical History (Other): Pancreatitis, Pneumonia Surgical History: Denies all surgeries Family History Family History: Unknown Social History Smoker: Non-Smoker Alcohol: Sober Drugs: Denies Drug Use Lives In: Home Was a procedure done? Was a procedure done?: No GI differential Dx Differential Diagnosis: Other (DDX include but not limited to diverticulitis, colitis, gastroenteritis, acute abdomen, SBO, enteritis, constipation, volvulus, appendicitis, Gallbladder disease, choledocolithiasis, ascending cholangitis, pancreatitis, intraAbdominal mass/neoplasm, hepatitis, UTI, pylonephritis, kidney stone, aneurysm, dissection, Inflammatory bowel disease, gastroparesis, ischemic bowel.) X-Ray, Labs, Meds, VS Vital Signs Date Time Temp Pulse Resp B/P (MAP) Pulse Ox O2 Delivery O2 Flow Rate FiO2 05/15/24 18:50 98.8 76 18 99/74 (82) 96 Lab Test 05/15/24 20:35 05/15/24 19:45 Range/Units Gamma Glutamyl Transpeptidase 35 <73 U/L Troponin I High Sensitivity 3 L 4 </=54 ng/L White Blood Count 7.4 # 4.4-10.8 10^3/uL Red Blood Count 4.43 L 4.5-5.90 10^6/uL Hemoglobin 14.9 13.5-17.5 g/dL Hematocrit 43.9 41.0-53.0 % Mean Corpuscular Volume 99.1 80.0-100.0 fL Mean Corpuscular Hemoglobin 33.6 H 28.0-32.0 pg Mean Corpuscular Hemoglobin Concent 33.9 32.0-36.0 g/dL Red Cell Distribution Width 13.8 11.8-14.3 % Platelet Count 291 140-450 10^3/uL Mean Platelet Volume 6.9 6.9-10.8 fL Neutrophils (%) (Auto) 48.5 37.0-80.0 % Lymphocytes (%) (Auto) 36.0 10.0-50.0 % Monocytes (%) (Auto) 7.4 0.0-12.0 % Eosinophils (%) (Auto) 7.2 H 0.0-7.0 % Basophils (%) (Auto) 0.9 0.0-2.0 % Neutrophils # (Auto) 3.6 1.6-8.6 10 ^3/uL Lymphocytes # (Auto) 2.7 0.4-5.4 10 ^3/uL Monocytes # (Auto) 0.6 0-1.3 10 ^3/uL Eosinophils # (Auto) 0.5 0-0.8 10 ^3/uL Basophils # (Auto) 0.1 0-0.2 10 ^3/uL Nucleated Red Blood Cells 0.2 % Erythrocyte Sedimentation Rate 10 0-20 mm/hr Sodium Level 136 136-145 mmol/L Potassium Level 4.5 3.5-5.1 mmol/L Chloride Level 101 98-107 mmol/L Carbon Dioxide Level 29 20-31 mmol/L Anion Gap 6 5-15 Blood Urea Nitrogen 9 9-23 mg/dL Creatinine 0.73 0.700-1.30 mg/dL Glomerular Filtration Rate Calc 107 >90 mL/min BUN/Creatinine Ratio 12.3 10.0-20.0 Serum Glucose 125 H 74-106 mg/dL Lactic Acid Level 1.1 0.4-2.0 mmol/L Calcium Level 10.1 8.7-10.4 mg/dL Total Bilirubin 0.2 0.2-1.0 mg/dL Aspartate Amino Transferase (AST) 16 13-40 U/L Alanine Aminotransferase (ALT) 16 7-40 U/L Alkaline Phosphatase 88 46-116 U/L C-Reactive Protein High Sensitivity 0.20 <1.0 mg/dL Total Protein 7.0 5.7-8.2 g/dL Albumin 4.4 3.2-4.8 g/dL Lipase 135 H 12-53 U/L Time of 1ST Reevaluation: 01:42 Reevaluation 1ST: Improved Patient Education/Counseling: Diagnosis, Treatment Family Education/Counseling: Other Comments Patient presented with the above HPI.---abdominal pain---workup was initiated. patient was found with the above mentioned diagnosis. the following medications were ordered: please refer to order lists of meds and tests obtained by myself Dr. Bourne. Patient ED course and VS have been stabilized. Patient has been reassessed in the ED and remained in a stable condition. Pertinent incidental findings were discussed with the patient and/or family. Patient/family voices understanding and is agreeable with plan. Patient has been observed in the ED adequate length of time to insure improvement/stability. Escalation of care considered: Consideration of escalation to observation or admission Patient was ADMITTED to the medicine team for further evaluation and treatment of their presentation. All the reports of any imaging studies that were ordered by myself were reviewed by myself. Departure 1 Departure Time of Disposition: 19:41 Impression: Primary Impression: Acute pancreatitis Disposition: 09 ADMITTED INPATIENT Admit to: Tele Condition: Guarded Discharged With: Self Critical Care Note Critical Care Time?: No Heart Score Heart Score: Heart Score Response (Comments) Value History N/A 0 EKG N/A 0 Age N/A 0 Risk Factors N/A 0 Troponin N/A 0 Total 0 I personally scribed for CHRIS BOURNE DO ([email or web address]) on 05/15/24 at 19:39. Electronically submitted by Thom Carrillo ([email or web address]). I personally scribed for CHRIS BOURNE DO ([email or web address]) on 05/15/24 at 19:46. Electronically submitted by Thom Carrillo ([email or web address]). I personally scribed for CHRIS BOURNE DO ([email or web address]) on 05/15/24 at 21:43. Electronically submitted by Thom Carrillo ([email or web address]). CHRIS BOURNE DO May 15, 2024 19:27
[2024-05-15 20:08] LABS: Basophils # (auto) 0.1 10 ^3/uL (0-0.2); Basophils % (auto) 0.9 % (0.0-2.0); Eosinophils # (auto) 0.5 10 ^3/uL (0-0.8); Eosinophils % (auto) 7.2 % (0.0-7.0); Hematocrit 43.9 % (41.0-53.0); Hemoglobin 14.9 g/dL (13.5-17.5); Lymphocytes # (auto) 2.7 10 ^3/uL (0.4-5.4); Mean Corpuscular Hemoglobin 33.6 pg (28.0-32.0); Mean Corpuscular Hgb Conc. 33.9 g/dL (32.0-36.0); Mean Corpuscular Volume 99.1 fL (80.0-100.0); Monocytes # (auto) 0.6 10 ^3/uL (0-1.3); Monocytes % (auto) 7.4 % (0.0-12.0); Neutrophils # (auto) 3.6 10 ^3/uL (1.6-8.6); Neutrophils % (auto) 48.5 % (37.0-80.0); Nucleated Red Blood Cells % 0.2 %; Platelet Count (auto) 291 10^3/uL (140-450); Red Blood Cells 4.43 10^6/uL (4.5-5.90); Red Cell Distribution Width 13.8 % (11.8-14.3); White Blood Cell 7.4 10^3/uL (4.4-10.8)
[2024-05-15 20:27] LABS: Alanine Aminotransferase 16 U/L (7-40); Alkaline Phosphatase 88 U/L (46-116); Anion Gap 6 (5-15); Aspartate Aminotransferase 16 U/L (13-40); BUN/Creatinine Ratio 12.3 (10.0-20.0); Calcium 10.1 mg/dL (8.7-10.4); Carbon Dioxide 29 mmol/L (20-31); Chloride 101 mmol/L (98-107); Potassium 4.5 mmol/L (3.5-5.1)
[2024-05-15 20:28] LABS: Albumin 4.4 g/dL (3.2-4.8); Bilirubin, Total 0.2 mg/dL (0.2-1.0); Blood Urea Nitrogen 9 mg/dL (9-23); Glucose 125 mg/dL (74-106); Lipase 135 U/L (12-53); Sodium 136 mmol/L (136-145)
[2024-05-15] MEDS: HYDROcodone-ACET 10/325MG TAB PO SCH (22:00)
[2024-05-15 23:16] LABS: Erythrocyte Sedimentation Rate 10 mm/hr (0-20)
[2024-05-16] VITALS (7 sets, daily range): BP systolic 99–117; BP diastolic 63–74; PULSE 63–80; RESP 16–18; TEMP 97.8–98.6; O2SAT 94–97
[2024-05-16] MEDS: RIVAROXABAN 15 MG TAB PO SCH (01:26)
[2024-05-16] MEDS: MORPHINE SULFATE INJ 2 MG/ml SYRG IV PRN (01:26)
[2024-05-16 01:29] LABS: Urine Bacteria None Seen /hpf (None Seen)
[2024-05-16 01:50] LABS: Urine Blood Negative /uL (Negative); Urine Clarity Clear (Clear); Urine Color Light-Yellow (Yellow); Urine Protein, UAD Negative (Negative); Urine Specific Gravity 1.011 (1.001-1.035); Urine Squamous Epithelial Cell None Seen /hpf (<5); Urine Urobilinogen Normal (Negative)
--- NOTE | 2024-05-16 02:12 | DVHHPRES ---
History of Present Illness Resident Creating Document: EVE MARTÍNEZ Reason for Visit: acute abdominal pain History of Present Illness 54-year-old male with a history of chronic pancreatitis, uncertain etiology (pancreatic stones?), who presents with worsening abdominal pain. The patient has had multiple prior admissions for similar complaints and has been under evaluation at [place], where an ERCP was planned but postponed due to Mycobacterium avium complex (MAC) pneumonia. Since August, the patient has been on treatment with ethambutol, rifampin, and azithromycin. Recent labs show normal WBC a slightly elevated lipase of 135. Given his history, the patient is being admitted for further evaluation of acute on chronic pancreatitis and to study a cavitary lung lesion suspected to be related to MAC pneumonia. The patient is a chronic smoker and has a history of frequent discharges against medical advice (AMA). Pain management has been difficult, and he has required high dose of opioids in the past. PAST MEDICAL HISTORY: Chronic pancreatitis MAC pneumonia (on treatment) Chronic pain History of smoking Frequent hospital readmissions MEDICATIONS: Ethambutol Rifampin Azithromycin [place] SOCIAL HISTORY: Chronic smoker No recent alcohol use reported but history unclear Lives alone Review of Systems Constitutional: No: Fever, Chills, Sweats, Weakness, Malaise, Other Eyes: No: Pain, Vision change, Conjunctivae inflammation, Eyelid inflammation, Other, Redness ENT: No: Ear pain, Ear discharge, Nose pain, Nose discharge, Nose congestion, Mouth pain, Mouth swelling, Throat pain, Throat swelling, Other Respiratory: No: Cough, Dry, Shortness of breath, SOB with excertion, Wheezing, Hemoptysis, Pleuritic Pain, Sputum, Wheezing, Other Cardiovascular: No: Chest Pain, Palpitations, Orthopnea, Paroxysmal Noc. Dyspnea, Edema, Lt Headedness, Other Gastrointestinal: Abdominal Pain; No: Nausea, Vomiting, Diarrhea, Constipation, Melena, Hematochezia, Other Genitourinary: No Dysuria, No Frequency, No Incontinence, No Hematuria, No Retention, No Other Musculoskeletal: No: other, neck pain, shoulder pain, arm pain, back pain, hand pain, leg pain, foot pain Skin: No: Rash, Lesions, Jaundice, Bruising, Other Neurological: No: Weakness, Numbness, Incoordination, Change in speech, Confusion, Seizures, Other Allergies: Coded Allergies: NO KNOWN ALLERGIES (Unverified , 02/16/24) Medications Current Medications Medications Dose Ordered Sig/Desean Route Start Time Stop Time Status Last Admin Dose Admin Acetaminophen/ Hydrocodone Bitart 1 tab Q8H PO 05/15/24 22:00 Azithromycin 250 mg DAILY PO 05/16/24 10:00 Ethambutol HCl 800 mg DAILY PO 05/16/24 10:00 Rifampin 600 mg DAILY PO 05/16/24 10:00 Rivaroxaban 15 mg QPM PO 05/15/24 22:15 05/16/24 01:26 15 MG Morphine Sulfate 2 mg Q8HPRN PRN IV 05/16/24 01:15 05/16/24 01:26 2 MG Exam Vital Signs Vital Signs Date Time Temp Pulse Resp B/P (MAP) Pulse Ox O2 Delivery O2 Flow Rate FiO2 05/16/24 01:26 70 16 106/73 05/16/24 00:37 98.7 98 98.7 05/16/24 00:37 Room Air* 0 21 Exam General: Appears uncomfortable due to pain Abdomen: Tender to palpation in the epigastric region, no rebound or guarding Pulmonary: No acute distress, no rales or wheezing Cardiovascular: Regular rate and rhythm, no murmurs Neurologic: No focal deficits Labs/Xrays Labs Test 05/16/24 00:03 05/15/24 20:35 05/15/24 19:45 Range/Units Urine Color Light-yellow Yellow Urine Clarity Clear Clear Urine pH 6.0 5.0-9.0 Urine Specific [place] 1.011 1.001-1.035 Urine Protein Negative Negative Urine Ketones Negative Negative Urine Blood Negative Negative /uL Urine Nitrite Negative Negative Urine Bilirubin Negative Negative Urine Urobilinogen Normal Negative mg/dL Urine Leukocyte Esterase Negative Negative /uL Urine RBC None seen 0 - 3 /hpf Urine Microscopic WBC 0-3 /HPF Urine Squamous Epithelial Cells None seen <5 /hpf Urine Bacteria None seen None Seen /hpf Urine Glucose Normal Normal mg/dL Gamma Glutamyl Transpeptidase 35 <73 U/L Troponin I High Sensitivity 3 L </=54 ng/L White Blood Count 7.4 # 4.4-10.8 10^3/uL Red Blood Count 4.43 L 4.5-5.90 10^6/uL Hemoglobin 14.9 13.5-17.5 g/dL Hematocrit 43.9 41.0-53.0 % Mean Corpuscular Volume 99.1 80.0-100.0 fL Mean Corpuscular Hemoglobin 33.6 H 28.0-32.0 pg Mean Corpuscular Hemoglobin Concent 33.9 32.0-36.0 g/dL Red Cell Distribution Width 13.8 11.8-14.3 % Platelet Count 291 140-450 10^3/uL Mean Platelet Volume 6.9 6.9-10.8 fL Neutrophils (%) (Auto) 48.5 37.0-80.0 % Lymphocytes (%) (Auto) 36.0 10.0-50.0 % Monocytes (%) (Auto) 7.4 0.0-12.0 % Eosinophils (%) (Auto) 7.2 H 0.0-7.0 % Basophils (%) (Auto) 0.9 0.0-2.0 % Neutrophils # (Auto) 3.6 1.6-8.6 10 ^3/uL Lymphocytes # (Auto) 2.7 0.4-5.4 10 ^3/uL Monocytes # (Auto) 0.6 0-1.3 10 ^3/uL Eosinophils # (Auto) 0.5 0-0.8 10 ^3/uL Basophils # (Auto) 0.1 0-0.2 10 ^3/uL Nucleated Red Blood Cells 0.2 % Erythrocyte Sedimentation Rate 10 0-20 mm/hr Sodium Level 136 136-145 mmol/L Potassium Level 4.5 3.5-5.1 mmol/L Chloride Level 101 98-107 mmol/L Carbon Dioxide Level 29 20-31 mmol/L Anion Gap 6 5-15 Blood Urea Nitrogen 9 9-23 mg/dL Creatinine 0.73 0.700-1.30 mg/dL Glomerular Filtration Rate Calc 107 >90 mL/min BUN/Creatinine Ratio 12.3 10.0-20.0 Serum Glucose 125 H 74-106 mg/dL Lactic Acid Level 1.1 0.4-2.0 mmol/L Calcium Level 10.1 8.7-10.4 mg/dL Total Bilirubin 0.2 0.2-1.0 mg/dL Aspartate Amino Transferase (AST) 16 13-40 U/L Alanine Aminotransferase (ALT) 16 7-40 U/L Alkaline Phosphatase 88 46-116 U/L C-Reactive Protein High Sensitivity 0.20 <1.0 mg/dL Total Protein 7.0 5.7-8.2 g/dL Albumin 4.4 3.2-4.8 g/dL Lipase 135 H 12-53 U/L Assessment/Plan Assessment/Plan LABS & IMAGING: WBC: Normal ESR: 10 Lipase: 135 (slightly elevated) MRCP: No gallstones, chronic pancreatitis with cystic lesions in the pancreatic head CT Chest: Cavitary lung lesions, suspected MAC pneumonia ASSESSMENT & PLAN: #Acute on Chronic Pancreatitis (pancreatic stones?). Continue IV fluids, pain control with opioids and tylenol, and supportive care. GI consulted for further evaluation due to multiples readmissions #MAC Pneumonia subtreated? Continue current treatment with azithromycin, etambutol, and rifampin. Pulmonology and ID consulted for further work up. HIV, LDH and Hep Panel #Hypercoagulable state Patient is poor historian on why he is taking xarelto (continue as low dose) Daughter is advised to download my Charts (mario) to access to the full charts of the patient in [facility] Case discussed with Dr Olmedo Plan discussed with: Patient, Other (rn) My Orders Orders - EVE MARTÍNEZ RESIDENT Procedure Category Date Status Time Admit ADMIT 05/15/24 Transmitted 21:53 Hydrocodone-Acet PHA 05/15/24 In Process 10/325mg Tab ([place] 22:00 Azithromycin Tablet PHA 05/16/24 In Process (Zithromax Tablet) 10:00 Ethambutol Hcl PHA 05/16/24 In Process (Myambutol) 10:00 Rifampin Capsule PHA 05/16/24 In Process 10:00 Soft Diet DIET 05/16/24 Transmitted Breakfast Sodium Chloride 0.9% PHA 05/15/24 In Process 22:00 Rivaroxaban Tablet PHA 05/15/24 In Process (Xarelto Tablet) 22:15 Respiratory Culture WILLIAM 05/15/24 Logged W/ Gs 22:56 *Consult CONS 05/15/24 Transmitted / 22:56 * Gi [employer] CONS 05/15/24 Transmitted 22:56 * Infectious [place]- CONS 05/15/24 Transmitted Miguel A Gonzales 22:56 Morphine Sulfate PHA 05/16/24 In Process Injection 01:15 Date of Service: May 15, 2024 Billing Provider: MYRNA OLMEDO MD Common Visit Codes: [id number] INP/OBS CARE (HIGH) EVE MARTÍNEZ RESIDENT May 16, 2024 02:12 MYRNA OLMEDO MD May 18, 2024 10:27
[2024-05-16 06:47] LABS: Basophils # (auto) 0.1 10 ^3/uL (0-0.2); Basophils % (auto) 0.8 % (0.0-2.0); Eosinophils # (auto) 0.5 10 ^3/uL (0-0.8); Mean Corpuscular Hgb Conc. 34.7 g/dL (32.0-36.0); Neutrophils # (auto) 3.1 10 ^3/uL (1.6-8.6); Nucleated Red Blood Cells % 0.2 %; Red Blood Cells 4.04 10^6/uL (4.5-5.90); White Blood Cell 6.9 10^3/uL (4.4-10.8)
[2024-05-16 06:48] LABS: Hematocrit 39.9 % (41.0-53.0); Hemoglobin 13.9 g/dL (13.5-17.5); Lymphocytes # (auto) 2.7 10 ^3/uL (0.4-5.4); Mean Corpuscular Hemoglobin 34.3 pg (28.0-32.0); Mean Corpuscular Volume 98.9 fL (80.0-100.0); Monocytes # (auto) 0.6 10 ^3/uL (0-1.3); Monocytes % (auto) 8.6 % (0.0-12.0); Neutrophils % (auto) 44.6 % (37.0-80.0); Platelet Count (auto) 270 10^3/uL (140-450); Red Cell Distribution Width 13.9 % (11.8-14.3)
[2024-05-16 06:58] LABS: Alanine Aminotransferase 11 U/L (7-40); Albumin 4.1 g/dL (3.2-4.8); Alkaline Phosphatase 83 U/L (46-116); Anion Gap 8 (5-15); Aspartate Aminotransferase < 8 U/L (13-40); BUN/Creatinine Ratio 11.6 (10.0-20.0); Blood Urea Nitrogen 8 mg/dL (9-23); Calcium 9.6 mg/dL (8.7-10.4); Carbon Dioxide 26 mmol/L (20-31); Chloride 103 mmol/L (98-107); Glucose 98 mg/dL (74-106); Potassium 3.9 mmol/L (3.5-5.1); Sodium 137 mmol/L (136-145); Total Protein 6.7 g/dL (5.7-8.2)
[2024-05-16 06:59] LABS: Bilirubin, Total < 0.2 mg/dL (0.2-1.0)
[2024-05-16] MEDS: SODIUM CHLORIDE 0.9% 1,000 ML IV ONE (09:23)
[2024-05-16] MEDS: rifAMPin 300 MG CAP PO SCH (10:33)
[2024-05-16] MEDS: ETHAMBUTOL HCL 400 MG TAB PO SCH (10:33)
[2024-05-16] MEDS: AZITHROMYCIN 250 MG TAB PO SCH (10:33)
[2024-05-16] MEDS: HYDROcodone-ACET 10/325MG TAB PO SCH (12:00)
--- NOTE | 2024-05-16 12:41 | DVHPNRES ---
Progress Note Date Seen: May 16, 2024 Resident Creating Document: HUBERT DARLING Medical Necessity Reason Pt with a Central, PICC or Fol: No Subjective Review of Systems HPI-patient is 54-year-old male with a history of chronic pancreatitis, uncertain etiology (pancreatic stones?), who presents with worsening abdominal pain. Patient reported worsening abdominal pain since yesterday, 12/25, radiating to the back. The patient has had multiple prior admissions for similar complaints and has been under evaluation at [place], where an ERCP was planned but postponed due to Mycobacterium avium complex (MAC) pneumonia. Since August, the patient has been on treatment with ethambutol, rifampin, and azithromycin. Recent labs show normal WBC a slightly elevated lipase of 135. Given his history, the patient is being admitted for further evaluation of acute on chronic pancreatitis and to study a cavitary lung lesion suspected to be related to MAC pneumonia. The patient is a chronic smoker and has a history of frequent discharges against medical advice (AMA). Pain management has been difficult, and he has required high dose of opioids in the past. CT abdomen, chest and pelvis on 05/14/2024 revealed-Multiple nodules and cavitary nodules in both lungs with an upper lobe predominance. Mediastinal and hilar lymphadenopathy. Differential considerations include cavitary pneumonia, fungal pneumonia, septic emboli, and neoplastic etiologies. Clinical correlation and continued follow-up is recommended. CT-guided biopsy could be performed if clinically indicated. 2. Changes of chronic pancreatitis. Cystic lesion in the head pancreas. Consider MRI of the abdomen with contrast on a nonemergent basis. No definite acute process in the abdomen identified. On 05/14/2024-CT abdomen revealed- Limited exam without intravenous contrast. Findings suggestive of chronic pancreatitis. No hydronephrosis or nephrolithiasis. Nonspecific dilation of small bowel, could be ileus or enteritis. Large amount of stool throughout the colon suggesting constipation. If there is continued concern consider follow-up exam with intravenous contrast. Nodular airspace disease in the left lower lung. PMH-chronic pancreatitis,Mycobacterium avium complex (MAC) pneumonia cavitation in the lungs likely due to MAC, chronic pain Allergy- NKDA Personal History/ Social History- smoker, Patient was seen today at the bedside. Cardiovascular- deny acute chest pain or shortness of breath or cough or palpitation Respiratory denies cough or short of breath or wheezing Musculoskeletal-denies acute joint swelling or tenderness or redness Neurological- denies acute dysarthria, dysphagia, change in vision Psychiatry- denies depression or SI or HI Skin- denies acute rash or purpura Patient was seen today for clinical evaluation. Less than chart reviewed. Serum lipase 103. Patient reports ongoing abdominal pain 10/25. Continue morphine, ordered Dilaudid. Increase the frequency of p.r.n. oxycodone. Ordered continue IV fluid normal saline 100 mL/hour. Objective vital signs Vital Sign Date Time Temp Pulse Resp B/P (MAP) Pulse Ox O2 Delivery O2 Flow Rate FiO2 05/16/24 09:24 98.1 77 16 107/74 (85) 96 98.1 05/16/24 05:04 Room Air* 0 21 medications Current Medications Medications Dose Ordered Sig/Desean Route Start Time Stop Time Status Last Admin Dose Admin Azithromycin 250 mg DAILY PO 05/16/24 10:00 05/16/24 10:33 250 MG Ethambutol HCl 800 mg DAILY PO 05/16/24 10:00 05/16/24 10:33 800 MG Rifampin 600 mg DAILY PO 05/16/24 10:00 05/16/24 10:33 600 MG Rivaroxaban 15 mg QPM PO 05/15/24 22:15 05/16/24 01:26 15 MG Sodium Chloride 1,000 ml @ 100 mls/hr Q10H IV 05/16/24 12:00 UNV Acetaminophen/ Hydrocodone Bitart 1 tab Q6H PO 05/16/24 12:00 UNV Hydromorphone HCl 0.25 mg Q6HPRN PRN IV 05/16/24 12:00 UNV Examination General examination- awake, alert oriented conversant HEENT- PEERLA, no acute nasal discharge Cardiovascular- S1-S2 audible, rate and rhythm regular, no murmur Respiratory- CTAB, no wheeze or rhonchi Gastrointestinal-abdomen tender ++, bowel sound+. Nondistended Musculoskeletal-no acute joint swelling or tenderness or redness# Lower extremity- no leg edema Neurological- cranial nerves intact, no acute dysarthria or dysphagia Psychiatry- denies depression or SI or HI Skin- no acute rash or purpura laboratory and microbiology Laboratory Tests 05/16/24 05:10 Test 05/16/24 05:10 Range/Units Serum Glucose 98 74-106 mg/dL Problem List/Assessment/Plan Problem List/Assessment/Plan Assessment- 54 years old male with a history of chronic pancreatitis likely due to stone, history of MAC pneumonia with cavitary lesion in the lung. patient came with a worsening pain due to acute on chronic pancreatitis. Patient is on clear liquid diet, no nausea and vomiting noted today. Discontinued morphine, ordered Dilaudid p.r.n., increase the frequency of oxycodone from Q 8 H to q.6h. If patient is unable to keep food down or liquid down plan is to keep him NPO. Intractable abdominal pain likely due to acute on chronic pancreatitis Acute on chronic pancreatitis Cyst in the pancreatic head with possible calculi Cavitary lesion of the lungs bilateral likely due to MAC Mediastinal and hilar lymphadenopathy CT abdomen, chest and pelvis on 05/14/2024 revealed-Multiple nodules and cavitary nodules in both lungs with an upper lobe predominance. Mediastinal and hilar lymphadenopathy. . Cystic lesion in the head pancreas. On 05/14/2024-CT abdomen revealed- Findings suggestive of chronic pancreatitis. No hydronephrosis or nephrolithiasis. Nonspecific dilation of small bowel, could be ileus or enteritis. Large amount of stool throughout the colon suggesting constipation. Nodular airspace disease in the left lower lung. Serum lipase 103 Plan Continue pain medication as prescribed Continue normal saline 100 mL/hour Continue pantoprazole 40 mg IV daily Monitor vitals Goals of care/advance care planning; FULL CODE; discussed with the patient >15 minutes PUD prophylaxis: Pantoprazole DVT prophylaxis: Lovenox Plan discussed with Dr. Manzanares , nursing staff, patient Total time spent on patient evaluation, chart review, assessment and plan, discussion discussion >35 minutes Plan discussed with: Patient Plan discussed with: Patient, Other (RN) My Orders My Orders Orders - HUBERT DARLING RESIDENT Procedure Category Date Status Time Full Liq Diet DIET 05/16/24 Transmitted Lunch Sodium Chloride 0.9% PHA 05/16/24 Logged 12:00 Hydrocodone-Acet PHA 05/16/24 Logged 10/325mg Tab ([place] 12:00 Hydromorphone PHA 05/16/24 Logged Injection (Dilaudid 12:00 HUBERT DARLING RESIDENT May 16, 2024 12:41
[2024-05-16] MEDS: SODIUM CHLORIDE 0.9% 1,000 ML IV SCH (12:44)
[2024-05-16] MEDS: HYDROmorphone HCL 2 MG/ML VL/or syr IV PRN (13:17)
--- NOTE | 2024-05-16 18:29 | DVHINCON2 ---
Date of service: May 16, [address] Church Reason for Consultation Acute pancreatitis History of Present Illness 54-year-old male with a history of chronic pancreatitis, uncertain etiology (pancreatic stones?), who presents with worsening abdominal pain. The patient has had multiple prior admissions for similar complaints and has been under evaluation at [place], where an ERCP was planned but postponed due to Mycobacterium avium complex (MAC) pneumonia. Since August, the patient has been on treatment with ethambutol, rifampin, and azithromycin. Recent labs show normal WBC a slightly elevated lipase of 135. Given his history, the patient is being admitted for further evaluation of acute on chronic pancreatitis and to study a cavitary lung lesion suspected to be related to MAC pneumonia. The patient is a chronic smoker and has a history of frequent discharges against medical advice (AMA). Pain management has been difficult, and he has required high dose of opioids in the past. Past Medical History PAST MEDICAL HISTORY: Chronic pancreatitis MAC pneumonia (on treatment) Chronic pain History of smoking Frequent hospital readmissions Family History: Patient reports no known family medical history. Allergies: Coded Allergies: NO KNOWN ALLERGIES (Unverified , 02/16/24) Home Meds Active Scripts Oxycodone Hcl (OxyCONTIN ER Tablet) 20 Mg Tb, 1 TAB PO BID for 5 Days, #10 TAB Prov:COREY SHEPHERD MD 04/21/24 Acetaminophen (Acetaminophen) 325 Mg Tab, 650 MG PO Q4HR for 30 Days, #360 TAB Prov:EVE MARTÍNEZ RESIDENT 04/21/24 Ibuprofen (Ibuprofen) 800 Mg Tab, 800 MG PO Q8HP PRN for 10 Days, #30 TAB Prov:EVE MARTÍNEZ RESIDENT 04/21/24 Hydrocodone-Acetaminophen (Hydrocodone Bitartrate/AC 5-325 mg) 1 Tab Tab, 1 TAB PO QID PRN, #30 TAB Prov:FLOR[place] BOWMAN MD 03/15/24 Oxycodone W/ Acetaminophen (Percocet 5/325MG) 1 Tab Tb, 1 TAB PO QID for 5 Days, #20 TAB Prov:BERENICE MANNING NP 02/18/24 Reported Medications Multiple Vitamin (Multivitamin) 1 Tab Tab, 1 TAB PO DAILY 05/14/24 Folic Acid (Folic Acid) 1 Mg Tab, 1 TAB PO DAILY 03/12/24 Multiple Vitamin (One-Daily Multi-Vitamin) 1 Tab Tab, 1 TAB PO DAILY 03/12/24 Pancreatic Enzymes (Creon) 12,000 Unt Cap, PO 02/17/24 Sucralfate (Sucralfate) 1 Gm Tab, 1 TAB PO QID 02/16/24 Rivaroxaban (Xarelto) 2.5 Mg Tab, PO 02/16/24 Magnesium Oxide (True Magnesium Oxide) 400 Mg Tab, 1 TAB PO DAILY 02/16/24 Ethambutol Hcl (Ethambutol Hcl) 100 Mg Tab, 800 MG PO DAILY 02/16/24 Rifampin (Rifampin) 150 Mg Cap, 150 MG PO DAILY 02/16/24 Azithromycin (Azithromycin) 250 Mg Tab, 500 MG PO DAILY 02/16/24 Current Medications Current Medications Medications (Trade) Dose Ordered Sig/Desean Route PRN Reason Start Time Stop Time Status Last Admin Acetaminophen/ Hydrocodone Bitart ([place] 10/325MG Tab) 1 tab Q8H PO 05/15/24 22:00 05/16/24 11:55 DC 05/16/24 04:39 Azithromycin (Zithromax Tablet) 250 mg DAILY PO 05/16/24 10:00 05/16/24 10:33 Ethambutol HCl (Myambutol) 800 mg DAILY PO 05/16/24 10:00 05/16/24 10:33 Rifampin 600 mg DAILY PO 05/16/24 10:00 05/16/24 10:33 Rivaroxaban (Xarelto Tablet) 15 mg QPM PO 05/15/24 22:15 05/16/24 18:01 Morphine Sulfate 2 mg Q8HPRN PRN IV SEVERE PAIN (7-10 PAIN SCALE) 05/16/24 01:15 05/16/24 11:55 DC 05/16/24 09:05 Sodium Chloride 1,000 ml @ 100 mls/hr Q10H IV 05/16/24 12:00 05/16/24 12:44 Acetaminophen/ Hydrocodone Bitart ([place] 10/325MG Tab) 1 tab Q6H PO 05/16/24 12:00 05/16/24 18:01 Hydromorphone HCl (Dilaudid Injection) 0.25 mg Q6HPRN PRN IV SEVERE PAIN (7-10 PAIN SCALE) 05/16/24 12:00 05/16/24 13:17 Vital Signs Vital Signs Date Time Temp Pulse Resp B/P (MAP) Pulse Ox O2 Delivery O2 Flow Rate FiO2 05/16/24 13:47 76 16 105/70 05/16/24 13:06 98.4 94 98.4 05/16/24 05:04 Room Air* 0 21 Physical Exam HEENT- PEERLA, awake alert in no acute distress Cardiovascular- S1-S2 regular, rate and rhythm Gastrointestinal-soft nontender bowel sound+. Nondistended Lower extremity- no leg edema Neurological- cranial nerves intact, no acute dysarthria or dysphagia Psychiatry- denies depression or SI or HI Skin- no acute rash or purpura Labs/Diagnostic Data Labs Test 05/16/24 05:10 05/16/24 00:03 05/15/24 20:35 05/15/24 19:45 Range/Units White Blood Count 6.9 4.4-10.8 10^3/uL Red Blood Count 4.04 L 4.5-5.90 10^6/uL Hemoglobin 13.9 13.5-17.5 g/dL Hematocrit 39.9 L 41.0-53.0 % Mean Corpuscular Volume 98.9 80.0-100.0 fL Mean Corpuscular Hemoglobin 34.3 H 28.0-32.0 pg Mean Corpuscular Hemoglobin Concent 34.7 32.0-36.0 g/dL Red Cell Distribution Width 13.9 11.8-14.3 % Platelet Count 270 140-450 10^3/uL Mean Platelet Volume 7.0 6.9-10.8 fL Neutrophils (%) (Auto) 44.6 37.0-80.0 % Lymphocytes (%) (Auto) 39.0 10.0-50.0 % Monocytes (%) (Auto) 8.6 0.0-12.0 % Eosinophils (%) (Auto) 7.0 0.0-7.0 % Basophils (%) (Auto) 0.8 0.0-2.0 % Neutrophils # (Auto) 3.1 1.6-8.6 10 ^3/uL Lymphocytes # (Auto) 2.7 0.4-5.4 10 ^3/uL Monocytes # (Auto) 0.6 0-1.3 10 ^3/uL Eosinophils # (Auto) 0.5 0-0.8 10 ^3/uL Basophils # (Auto) 0.1 0-0.2 10 ^3/uL Nucleated Red Blood Cells 0.2 % Sodium Level 137 136-145 mmol/L Potassium Level 3.9 3.5-5.1 mmol/L Chloride Level 103 98-107 mmol/L Carbon Dioxide Level 26 20-31 mmol/L Anion Gap 8 5-15 Blood Urea Nitrogen 8 L 9-23 mg/dL Creatinine 0.69 L 0.700-1.30 mg/dL Glomerular Filtration Rate Calc 109 >90 mL/min BUN/Creatinine Ratio 11.6 10.0-20.0 Serum Glucose 98 74-106 mg/dL Calcium Level 9.6 8.7-10.4 mg/dL Total Bilirubin < 0.2 L 0.2-1.0 mg/dL Aspartate Amino Transferase (AST) < 8 L 13-40 U/L Alanine Aminotransferase (ALT) 11 7-40 U/L Alkaline Phosphatase 83 46-116 U/L Lactate Dehydrogenase 184 120-246 U/L Total Protein 6.7 5.7-8.2 g/dL Albumin 4.1 3.2-4.8 g/dL Lipase 103 H 12-53 U/L Plasma/Serum Blood Alcohol < 3.0 <10 mg/dL HIV (1&2) Antibody Negative Negative Urine Color Light-yellow Yellow Urine Clarity Clear Clear Urine pH 6.0 5.0-9.0 Urine Specific [place] 1.011 1.001-1.035 Urine Protein Negative Negative Urine Ketones Negative Negative Urine Blood Negative Negative /uL Urine Nitrite Negative Negative Urine Bilirubin Negative Negative Urine Urobilinogen Normal Negative mg/dL Urine Leukocyte Esterase Negative Negative /uL Urine RBC None seen 0 - 3 /hpf Urine Microscopic WBC 0-3 /HPF Urine Squamous Epithelial Cells None seen <5 /hpf Urine Bacteria None seen None Seen /hpf Urine Glucose Normal Normal mg/dL Gamma Glutamyl Transpeptidase 35 <73 U/L Troponin I High Sensitivity 3 L </=54 ng/L Erythrocyte Sedimentation Rate 10 0-20 mm/hr Lactic Acid Level 1.1 0.4-2.0 mmol/L C-Reactive Protein High Sensitivity 0.20 <1.0 mg/dL CT CHEST ABD PELVIS 05/12 IMPRESSION: 1. Multiple nodules and cavitary nodules in both lungs with an upper lobe predominance. Mediastinal and hilar lymphadenopathy. Differential considerations include cavitary pneumonia, fungal pneumonia, septic emboli, and neoplastic [place] ologies. Clinical correlation and continued follow-up is recommended. CT-guided biopsy could be performed if clinically indicated. 2. Changes of chronic pancreatitis. Cystic lesion in the head pancreas. Consider MRI of the abdomen with contrast on a nonemergent basis. No definite acute process in the abdomen identified. Problems(with codes): (1) Acute pancreatitis (2) Intractable abdominal pain (3) Chronic pancreatitis (4) Acute on chronic pancreatitis (5) Pancreatic lesion Plan/Recommendation Plan Patient has mild chronic elevation in his lipase levels Add Creon or pancreatic enzyme supplements with each meal Pain control; IV fluid hydration, clear liquid diet Repeat CA 19 nine Patient is supposed to have outpatient elective ERCP once medically stabilized Plan discussed with: Patient GISELLE ALY MD May 16, 2024 18:29
--- NOTE | 2024-05-16 19:16 | DVHINCON2 ---
Family History: Patient reports no known family medical history. Allergies: Coded Allergies: NO KNOWN ALLERGIES (Unverified , 02/16/24) Home Meds Active Scripts Oxycodone Hcl (OxyCONTIN ER Tablet) 20 Mg Tb, 1 TAB PO BID for 5 Days, #10 TAB Prov:COREY SHEPHERD MD 04/21/24 Acetaminophen (Acetaminophen) 325 Mg Tab, 650 MG PO Q4HR for 30 Days, #360 TAB Prov:EVE MARTÍNEZ [facility] 04/21/24 Ibuprofen (Ibuprofen) 800 Mg Tab, 800 MG PO Q8HP PRN for 10 Days, #30 TAB Prov:EVE MARTÍNEZ RESIDENT 04/21/24 Hydrocodone-Acetaminophen (Hydrocodone Bitartrate/AC 5-325 mg) 1 Tab Tab, 1 TAB PO QID PRN, #30 TAB Prov:[place] BOWMAN MD 03/15/24 Oxycodone W/ Acetaminophen (Percocet 5/325MG) 1 Tab Tb, 1 TAB PO QID for 5 Days, #20 TAB Prov:BERENICE MANNING NP 02/18/24 Reported Medications Multiple Vitamin (Multivitamin) 1 Tab Tab, 1 TAB PO DAILY 05/14/24 Folic Acid (Folic Acid) 1 Mg Tab, 1 TAB PO DAILY 03/12/24 Multiple Vitamin (One-Daily Multi-Vitamin) 1 Tab Tab, 1 TAB PO DAILY 03/12/24 Pancreatic Enzymes (Creon) 12,000 Unt Cap, PO 02/17/24 Sucralfate (Sucralfate) 1 Gm Tab, 1 TAB PO QID 02/16/24 Rivaroxaban (Xarelto) 2.5 Mg Tab, PO 02/16/24 Magnesium Oxide (True Magnesium Oxide) 400 Mg Tab, 1 TAB PO DAILY 02/16/24 Ethambutol Hcl (Ethambutol Hcl) 100 Mg Tab, 800 MG PO DAILY 02/16/24 Rifampin (Rifampin) 150 Mg Cap, 150 MG PO DAILY 02/16/24 Azithromycin (Azithromycin) 250 Mg Tab, 500 MG PO DAILY 02/16/24 Current Medications Current Medications Medications (Trade) Dose Ordered Sig/Desean Route PRN Reason Start Time Stop Time Status Last Admin Acetaminophen/ Hydrocodone Bitart ([place] 10/325MG Tab) 1 tab Q8H PO 05/15/24 22:00 05/16/24 11:55 DC 05/16/24 04:39 Azithromycin (Zithromax Tablet) 250 mg DAILY PO 05/16/24 10:00 05/16/24 10:33 Ethambutol HCl (Myambutol) 800 mg DAILY PO 05/16/24 10:00 05/16/24 10:33 Rifampin 600 mg DAILY PO 05/16/24 10:00 05/16/24 10:33 Rivaroxaban (Xarelto Tablet) 15 mg QPM PO 05/15/24 22:15 05/16/24 18:01 Morphine Sulfate 2 mg Q8HPRN PRN IV SEVERE PAIN (7-10 PAIN SCALE) 05/16/24 01:15 05/16/24 11:55 DC 05/16/24 09:05 Sodium Chloride 1,000 ml @ 100 mls/hr Q10H IV 05/16/24 12:00 05/16/24 12:44 Acetaminophen/ Hydrocodone Bitart ([place] 10/325MG Tab) 1 tab Q6H PO 05/16/24 12:00 05/16/24 18:01 Hydromorphone HCl (Dilaudid Injection) 0.25 mg Q6HPRN PRN IV SEVERE PAIN (7-10 PAIN SCALE) 05/16/24 12:00 05/16/24 13:17 Vital Signs Vital Signs Date Time Temp Pulse Resp B/P (MAP) Pulse Ox O2 Delivery O2 Flow Rate FiO2 05/16/24 18:00 97.8 75 16 107/67 (80) 96 97.8 05/16/24 05:04 Room Air* 0 21 Labs/Diagnostic Data Labs Test 05/16/24 05:10 05/16/24 00:03 05/15/24 20:35 05/15/24 19:45 Range/Units White Blood Count 6.9 4.4-10.8 10^3/uL Red Blood Count 4.04 L 4.5-5.90 10^6/uL Hemoglobin 13.9 13.5-17.5 g/dL Hematocrit 39.9 L 41.0-53.0 % Mean Corpuscular Volume 98.9 80.0-100.0 fL Mean Corpuscular Hemoglobin 34.3 H 28.0-32.0 pg Mean Corpuscular Hemoglobin Concent 34.7 32.0-36.0 g/dL Red Cell Distribution Width 13.9 11.8-14.3 % Platelet Count 270 140-450 10^3/uL Mean Platelet Volume 7.0 6.9-10.8 fL Neutrophils (%) (Auto) 44.6 37.0-80.0 % Lymphocytes (%) (Auto) 39.0 10.0-50.0 % Monocytes (%) (Auto) 8.6 0.0-12.0 % Eosinophils (%) (Auto) 7.0 0.0-7.0 % Basophils (%) (Auto) 0.8 0.0-2.0 % Neutrophils # (Auto) 3.1 1.6-8.6 10 ^3/uL Lymphocytes # (Auto) 2.7 0.4-5.4 10 ^3/uL Monocytes # (Auto) 0.6 0-1.3 10 ^3/uL Eosinophils # (Auto) 0.5 0-0.8 10 ^3/uL Basophils # (Auto) 0.1 0-0.2 10 ^3/uL Nucleated Red Blood Cells 0.2 % Sodium Level 137 136-145 mmol/L Potassium Level 3.9 3.5-5.1 mmol/L Chloride Level 103 98-107 mmol/L Carbon Dioxide Level 26 20-31 mmol/L Anion Gap 8 5-15 Blood Urea Nitrogen 8 L 9-23 mg/dL Creatinine 0.69 L 0.700-1.30 mg/dL Glomerular Filtration Rate Calc 109 >90 mL/min BUN/Creatinine Ratio 11.6 10.0-20.0 Serum Glucose 98 74-106 mg/dL Calcium Level 9.6 8.7-10.4 mg/dL Total Bilirubin < 0.2 L 0.2-1.0 mg/dL Aspartate Amino Transferase (AST) < 8 L 13-40 U/L Alanine Aminotransferase (ALT) 11 7-40 U/L Alkaline Phosphatase 83 46-116 U/L Lactate Dehydrogenase 184 120-246 U/L Total Protein 6.7 5.7-8.2 g/dL Albumin 4.1 3.2-4.8 g/dL Lipase 103 H 12-53 U/L Plasma/Serum Blood Alcohol < 3.0 <10 mg/dL HIV (1&2) Antibody Negative Negative Urine Color Light-yellow Yellow Urine Clarity Clear Clear Urine pH 6.0 5.0-9.0 Urine Specific Mouthcard 1.011 1.001-1.035 Urine Protein Negative Negative Urine Ketones Negative Negative Urine Blood Negative Negative /uL Urine Nitrite Negative Negative Urine Bilirubin Negative Negative Urine Urobilinogen Normal Negative mg/dL Urine Leukocyte Esterase Negative Negative /uL Urine RBC None seen 0 - 3 /hpf Urine Microscopic WBC 0-3 /HPF Urine Squamous Epithelial Cells None seen <5 /hpf Urine Bacteria None seen None Seen /hpf Urine Glucose Normal Normal mg/dL Gamma Glutamyl Transpeptidase 35 <73 U/L Troponin I High Sensitivity 3 L </=54 ng/L Erythrocyte Sedimentation Rate 10 0-20 mm/hr Lactic Acid Level 1.1 0.4-2.0 mmol/L C-Reactive Protein High Sensitivity 0.20 <1.0 mg/dL ADELINA WILLIAM MD May 16, 2024 19:16
--- NOTE | 2024-05-16 23:41 | DVHINCON2 ---
Date of service: May 16, 2024 Referring Physician Eve Tidwell MD Reason for Consultation MAC infection, cavitary/cystic lesions of lung, atelectasis History of Present Illness A 54-year-old man, chronic smoker with past medical history of chronic pancreatitis, uncertain etiology (pancreatic stones?), MAC pneumonia, and chronic pain who presented to ED on 05/15/24 with worsening abdominal pain. The patient has had multiple prior admissions for similar complaints and has been under evaluation at [place], where an ERCP was planned but postponed due to Mycobacterium avium complex pneumonia. Since August, the patient has been on treatment with ethambutol, rifampin, and azithromycin. Recent labs show normal WBC, slightly elevated lipase of 135. Given his history, the patient was admitted for further care of acute on chronic pancreatitis and cavitary lung lesion suspected to be related to MAC pneumonia. He has a history of frequent discharges against medical advice; pain management has been difficult and he has required high dose of opioids in the past. Pulmonary consultation is requested for evaluation and management due to the above findings. Review of Systems: 14-point review of systems negative unless otherwise noted above. Past Medical History: Chronic pancreatitis Mycobacterium avium complex pneumonia (on treatment) Chronic pain Frequent hospital readmissions Past Surgical History: None Medications: Reviewed. Allergies: No known drug allergies. Family History: No family history of premature CAD. No family history of lung disorders. Social History: Chronic smoker. No recent alcohol use reported. No illicit drug use. Family History: Patient reports no known family medical history. Allergies: Coded Allergies: NO KNOWN ALLERGIES (Unverified , 02/16/24) Home Meds Active Scripts Oxycodone Hcl (OxyCONTIN ER Tablet) 20 Mg Tb, 1 TAB PO BID for 5 Days, #10 TAB Prov:COREY SHEPHERD MD 04/21/24 Acetaminophen (Acetaminophen) 325 Mg Tab, 650 MG PO Q4HR for 30 Days, #360 TAB Prov:EVE MARTÍNEZ RESIDENT 04/21/24 Ibuprofen (Ibuprofen) 800 Mg Tab, 800 MG PO Q8HP PRN for 10 Days, #30 TAB Prov:EVE MARTÍNEZ RESIDENT 04/21/24 Hydrocodone-Acetaminophen (Hydrocodone Bitartrate/AC 5-325 mg) 1 Tab Tab, 1 TAB PO QID PRN, #30 TAB Prov:[place] BOWMAN MD 03/15/24 Oxycodone W/ Acetaminophen (Percocet 5/325MG) 1 Tab Tb, 1 TAB PO QID for 5 Days, #20 TAB Prov:BERENICE MANNING [employer] 02/18/24 Reported Medications Multiple Vitamin (Multivitamin) 1 Tab Tab, 1 TAB PO DAILY 05/14/24 Folic Acid (Folic Acid) 1 Mg Tab, 1 TAB PO DAILY 03/12/24 Multiple Vitamin (One-Daily Multi-Vitamin) 1 Tab Tab, 1 TAB PO DAILY 03/12/24 Pancreatic Enzymes (Creon) 12,000 Unt Cap, PO 02/17/24 Sucralfate (Sucralfate) 1 Gm Tab, 1 TAB PO QID 02/16/24 Rivaroxaban (Xarelto) 2.5 Mg Tab, PO 02/16/24 Magnesium Oxide (True Magnesium Oxide) 400 Mg Tab, 1 TAB PO DAILY 02/16/24 Ethambutol Hcl (Ethambutol Hcl) 100 Mg Tab, 800 MG PO DAILY 02/16/24 Rifampin (Rifampin) 150 Mg Cap, 150 MG PO DAILY 02/16/24 Azithromycin (Azithromycin) 250 Mg Tab, 500 MG PO DAILY 02/16/24 Current Medications Current Medications Medications (Trade) Dose Ordered Sig/Desean Route PRN Reason Start Time Stop Time Status Last Admin Azithromycin (Zithromax Tablet) 250 mg DAILY PO 05/16/24 10:00 05/16/24 10:33 Ethambutol HCl (Myambutol) 800 mg DAILY PO 05/16/24 10:00 05/16/24 10:33 Rifampin 600 mg DAILY PO 05/16/24 10:00 05/16/24 10:33 Morphine Sulfate 2 mg Q8HPRN PRN IV SEVERE PAIN (7-10 PAIN SCALE) 05/16/24 01:15 05/16/24 11:55 DC 05/16/24 09:05 Sodium Chloride 1,000 ml @ 100 mls/hr Q10H IV 05/16/24 12:00 05/16/24 23:24 Acetaminophen/ Hydrocodone Bitart ([place] 10/325MG Tab) 1 tab Q6H PO 05/16/24 12:00 05/16/24 23:23 Hydromorphone HCl (Dilaudid Injection) 0.25 mg Q6HPRN PRN IV SEVERE PAIN (7-10 PAIN SCALE) 05/16/24 12:00 05/16/24 19:38 Vital Signs Vital Signs Date Time Temp Pulse Resp B/P (MAP) Pulse Ox O2 Delivery O2 Flow Rate FiO2 05/16/24 20:00 Room Air* 0 21 05/16/24 19:38 84 17 104/78 05/16/24 18:00 97.8 96 97.8 Physical Exam Gen.: Patient lying in bed in no apparent distress. Breathing on room air. Head: Normocephalic, atraumatic. Eyes: EOMI/PERRLA. Ears: Normal hearing. Normal anatomy. Neck/trachea: Trachea midline, supple. Nose: Normal external anatomy. Mouth: Moist mucous membranes. Chest: Decreased air entry bilaterally. No wheezing or rhonchi. Cardiovascular: Positive S1, positive S2. Regular rate and rhythm. Abdomen: Positive bowel sounds in all 4 quadrants. Soft, non-tender, non- distended. : Deferred. Rectal: Deferred. Skin: Warm, dry. Intact. Extremities: 2+ radial pulses bilaterally. No lower extremity edema. Neuro: Awake, alert, oriented x3. No gross motor or sensory deficits. Cranial nerves II through XII intact. Gait not assessed. Labs/Diagnostic Data Labs Test 05/16/24 05:10 05/16/24 00:03 05/15/24 20:35 05/15/24 19:45 Range/Units White Blood Count 6.9 4.4-10.8 10^3/uL Red Blood Count 4.04 L 4.5-5.90 10^6/uL Hemoglobin 13.9 13.5-17.5 g/dL Hematocrit 39.9 L 41.0-53.0 % Mean Corpuscular Volume 98.9 80.0-100.0 fL Mean Corpuscular Hemoglobin 34.3 H 28.0-32.0 pg Mean Corpuscular Hemoglobin Concent 34.7 32.0-36.0 g/dL Red Cell Distribution Width 13.9 11.8-14.3 % Platelet Count 270 140-450 10^3/uL Mean Platelet Volume 7.0 6.9-10.8 fL Neutrophils (%) (Auto) 44.6 37.0-80.0 % Lymphocytes (%) (Auto) 39.0 10.0-50.0 % Monocytes (%) (Auto) 8.6 0.0-12.0 % Eosinophils (%) (Auto) 7.0 0.0-7.0 % Basophils (%) (Auto) 0.8 0.0-2.0 % Neutrophils # (Auto) 3.1 1.6-8.6 10 ^3/uL Lymphocytes # (Auto) 2.7 0.4-5.4 10 ^3/uL Monocytes # (Auto) 0.6 0-1.3 10 ^3/uL Eosinophils # (Auto) 0.5 0-0.8 10 ^3/uL Basophils # (Auto) 0.1 0-0.2 10 ^3/uL Nucleated Red Blood Cells 0.2 % Sodium Level 137 136-145 mmol/L Potassium Level 3.9 3.5-5.1 mmol/L Chloride Level 103 98-107 mmol/L Carbon Dioxide Level 26 20-31 mmol/L Anion Gap 8 5-15 Blood Urea Nitrogen 8 L 9-23 mg/dL Creatinine 0.69 L 0.700-1.30 mg/dL Glomerular Filtration Rate Calc 109 >90 mL/min BUN/Creatinine Ratio 11.6 10.0-20.0 Serum Glucose 98 74-106 mg/dL Calcium Level 9.6 8.7-10.4 mg/dL Total Bilirubin < 0.2 L 0.2-1.0 mg/dL Aspartate Amino Transferase (AST) < 8 L 13-40 U/L Alanine Aminotransferase (ALT) 11 7-40 U/L Alkaline Phosphatase 83 46-116 U/L Lactate Dehydrogenase 184 120-246 U/L Total Protein 6.7 5.7-8.2 g/dL Albumin 4.1 3.2-4.8 g/dL Lipase 103 H 12-53 U/L Plasma/Serum Blood Alcohol < 3.0 <10 mg/dL HIV (1&2) Antibody Negative Negative Urine Color Light-yellow Yellow Urine Clarity Clear Clear Urine pH 6.0 5.0-9.0 Urine Specific [place] 1.011 1.001-1.035 Urine Protein Negative Negative Urine Ketones Negative Negative Urine Blood Negative Negative /uL Urine Nitrite Negative Negative Urine Bilirubin Negative Negative Urine Urobilinogen Normal Negative mg/dL Urine Leukocyte Esterase Negative Negative /uL Urine RBC None seen 0 - 3 /hpf Urine Microscopic WBC 0-3 /HPF Urine Squamous Epithelial Cells None seen <5 /hpf Urine Bacteria None seen None Seen /hpf Urine Glucose Normal Normal mg/dL Gamma Glutamyl Transpeptidase 35 <73 U/L Troponin I High Sensitivity 3 L </=54 ng/L Erythrocyte Sedimentation Rate 10 0-20 mm/hr Lactic Acid Level 1.1 0.4-2.0 mmol/L C-Reactive Protein High Sensitivity 0.20 <1.0 mg/dL Assessment Impression: MAC infection Cavitary/cystic lesions of lung Pulmonary nodules Atelectasis Nicotine dependence Non-adherence with MAC antibiotics Mediastinal Lymphadenopathy likely reactive Chronic pancreatitis Plan: Supplemental oxygen PRN Titrate to keep O2 sats above 92%. Continue triple regimen antibiotics for MAC pneumonia. Bronchodilators PRN. Mucolytics/CPT Incentive spirometry Antitussive PRN for cough Monitor renal function. Monitor electrolytes. Supplement as necessary. Monitor ins and outs. Smoking cessation discussed for greater than 10 minutes DVT prophylaxis. Prognosis: Poor given patient's multiple co-morbidities. Rest of plan per hospitalist and other consultants. Thank you Dr. Tidwell, for allowing me to participate in this patient's care. Further recommendations will depend on the patient's clinical course. Please do not hesitate to contact me if you have any questions or concerns. This medical document was created using an electronic medical record system with [employer] computerized dictation system. Although these documentations are being carefully reviewed, there may still be some phonetic and typographical changes. The errors are purely typographical, due to imperfection on the software program, and do not reflect any compromise in the patient's medical care. Plan discussed with: Patient, Other (RN/Dr. Tidwell) EZE SEYMOUR MD May 16, 2024 23:41
[2024-05-17 01:00] VITALS: BP 94/61; PULSE 58; RESP 18; TEMP 97.9; O2SAT 94
[2024-05-17 05:00] VITALS: BP 106/61; PULSE 77; RESP 17; TEMP 97.7; O2SAT 94
[2024-05-17 08:57] LABS: Calcium 9.7 mg/dL (8.7-10.4)
[2024-05-17 08:58] LABS: Anion Gap 9 (5-15); Carbon Dioxide 27 mmol/L (20-31)
[2024-05-17 09:00] VITALS: BP 117/76; PULSE 82; RESP 16; TEMP 97.3; O2SAT 97
[2024-05-17 09:03] LABS: BUN/Creatinine Ratio 12.7 (10.0-20.0); Glucose 91 mg/dL (74-106); Magnesium 1.9 mg/dL (1.6-2.6)
[2024-05-17 09:06] LABS: Blood Urea Nitrogen 9 mg/dL (9-23); Chloride 103 mmol/L (98-107); Potassium 4.4 mmol/L (3.5-5.1); Sodium 139 mmol/L (136-145)
[2024-05-17 12:50] VITALS: BP 121/64; PULSE 89; RESP 16; TEMP 98; O2SAT 95
[2024-05-17] MEDS: CREON 12000 UNIT PO SCH (13:09)
--- NOTE | 2024-05-17 15:10 | DVHPN2 ---
Progress Note - Dictate Date Seen: May 17, 2024 Medical Necessity Reason Pt with a Central, PICC or Fol: No Subjective No new complaints Patient is resting comfortably Patient usually sees a pain specialist for chronic pain management Patient takes pancreatic enzyme supplements at home but he ran out of them His primary care doctor is [place] the [place] in [place] vital signs Vital Sign Date Time Temp Pulse Resp B/P (MAP) Pulse Ox O2 Delivery O2 Flow Rate FiO2 05/17/24 13:32 89 18 121/64 05/17/24 12:50 98.0 95 98.0 05/17/24 08:00 Room Air* 0 21 Total Intake and Output 05/16/24 05/16/24 05/17/24 15:00 23:00 07:00 Intake Total 760 ml 0 ml Output Total 2 ml Balance 760 ml -2 ml medications Current Medications Medications Dose Ordered Sig/Desean Route Start Time Stop Time Status Last Admin Dose Admin Azithromycin 250 mg DAILY PO 05/16/24 10:00 05/17/24 10:49 250 MG Ethambutol HCl 800 mg DAILY PO 05/16/24 10:00 05/17/24 10:49 800 MG Rifampin 600 mg DAILY PO 05/16/24 10:00 05/17/24 10:49 600 MG Rivaroxaban 15 mg QPM PO 05/15/24 22:15 05/16/24 18:01 15 MG Sodium Chloride 1,000 ml @ 100 mls/hr Q10H IV 05/16/24 12:00 05/17/24 08:00 100 MLS/HR Acetaminophen/ Hydrocodone Bitart 1 tab Q6H PO 05/16/24 12:00 05/16/24 23:23 1 TAB Hydromorphone HCl 0.25 mg Q6HPRN PRN IV 05/16/24 12:00 05/17/24 13:02 0.25 MG Patient Own Medication 1 TID PO 05/17/24 14:00 objective HEENT- PEERLA, awake alert in no acute distress Cardiovascular- S1-S2 regular, rate and rhythm Gastrointestinal-soft nontender bowel sound+. Nondistended Lower extremity- no leg edema Neurological- cranial nerves intact, no acute dysarthria or dysphagia Psychiatry- denies depression or SI or HI Skin- no acute rash or purpura laboratory and microbiology Laboratory Tests 05/17/24 07:22 05/16/24 05:10 Test 05/17/24 07:22 Range/Units Serum Glucose 91 74-106 mg/dL Problems(with codes): (1) Acute on chronic pancreatitis (2) Pancreatic lesion (3) Chronic pancreatitis (4) Intractable abdominal pain Prognosis Plan Continue treatment for atypical mycobacterium pneumonia Creon supplements or pancreatic enzyme supplements one tablet p.o. 4 times a day with his meals Patient will need a prescription of the same upon discharge Patient counseled against use of alcohol smoking NSAIDs Advance to full liquid diet Monitor labs Plan discussed with: Patient GISELLE ALY MD May 17, 2024 15:10
--- NOTE | 2024-05-17 15:57 | DVHPNRES ---
Progress Note Date Seen: May 17, 2024 Resident Creating Document: BERNIE ALEMAN RESIDENT Medical Necessity Reason Pt with a Central, PICC or Fol: No Subjective Review of Systems 05/18/2024-patient is seen and examined at the bedside. Reports no acute complaint. Uses pancreatic enzyme supplementation with home with meals. Diet advanced to full liquid diet. Lipase downtrended to 91. Patient has a appointment with surgeon at [facility] on 05/19/24 regarding a Whipple procedure. Objective vital signs Vital Sign Date Time Temp Pulse Resp B/P (MAP) Pulse Ox O2 Delivery O2 Flow Rate FiO2 05/17/24 13:32 89 18 121/64 05/17/24 12:50 98.0 95 98.0 05/17/24 08:00 Room Air* 0 21 Total Intake and Output 05/16/24 05/16/24 05/17/24 15:00 23:00 07:00 Intake Total 760 ml 0 ml Output Total 2 ml Balance 760 ml -2 ml medications Current Medications Medications Dose Ordered Sig/Desean Route Start Time Stop Time Status Last Admin Dose Admin Azithromycin 250 mg DAILY PO 05/16/24 10:00 05/17/24 10:49 250 MG Ethambutol HCl 800 mg DAILY PO 05/16/24 10:00 05/17/24 10:49 800 MG Rifampin 600 mg DAILY PO 05/16/24 10:00 05/17/24 10:49 600 MG Rivaroxaban 15 mg QPM PO 05/15/24 22:15 05/16/24 18:01 15 MG Sodium Chloride 1,000 ml @ 100 mls/hr Q10H IV 05/16/24 12:00 05/17/24 08:00 100 MLS/HR Acetaminophen/ Hydrocodone Bitart 1 tab Q6H PO 05/16/24 12:00 05/16/24 23:23 1 TAB Hydromorphone HCl 0.25 mg Q6HPRN PRN IV 05/16/24 12:00 05/17/24 13:02 0.25 MG Patient Own Medication 1 TID PO 05/17/24 14:00 Examination Patient lying in bed, in no acute distress General: Well-built, afebrile, palor, mucosae are moist Cardiovascular: Regular S1 and S2. No murmurs, gallops or rubs. No JVD elevation. No pedal edema Respiratory: Normal B/L air entry on room air. Clear lung sounds on auscultation Abdomen: Soft, tender, nondistended, normoactive bowel sounds, no rebound tenderness, no organomegaly, no masses Genitourinary: Deferred MSK/skin: Mobilizes 4 limbs. Skin is dry and warm Neurological: No motor, no sensitive deficits, normal speech. Pupils are isocoric and reactive. Psych/Mental Status: A/Ox3 laboratory and microbiology Laboratory Tests 05/17/24 07:22 05/16/24 05:10 Test 05/17/24 07:22 Range/Units Serum Glucose 91 74-106 mg/dL Microbiology Date/Time Source Procedure Growth Status 05/16/24 14:25 Nose MRSA Screen - Final Complete Labs and/or images reviewed: Labs reviewed by me, Image(s) reviewed by me Problem List/Assessment/Plan Problem List/Assessment/Plan 05/18/2024-patient is seen and examined at the bedside. Reports no acute complaint. Uses pancreatic enzyme supplementation with home with meals. Diet advanced to full liquid diet. Lipase downtrended to 91. Patient has a appointment with surgeon at [facility] on 05/19/24 regarding a Whipple procedure. Intractable abdominal pain likely due to acute on chronic pancreatitis Acute on chronic pancreatitis Cyst in the pancreatic head with possible calculi Cavitary lesion of the lungs bilateral likely due to MAC Mediastinal and hilar lymphadenopathy CT abdomen, chest and pelvis on 05/14/2024 revealed-Multiple nodules and cavitary nodules in both lungs with an upper lobe predominance. Mediastinal and hilar lymphadenopathy. . Cystic lesion in the head pancreas. On 05/14/2024-CT abdomen revealed- Findings suggestive of chronic pancreatitis. No hydronephrosis or nephrolithiasis. Nonspecific dilation of small bowel, could be ileus or enteritis. Large amount of stool throughout the colon suggesting constipation. Nodular airspace disease in the left lower lung. Plan Continue pain medication as prescribed Continue normal saline 100 mL/hour Continue pantoprazole 40 mg IV daily Monitor vitals Goals of care/advance care planning; FULL CODE; discussed with the patient >15 minutes PUD prophylaxis: Pantoprazole DVT prophylaxis: Lovenox Diet advanced to full liquid Plan discussed with Dr. Manzanares , nursing staff, patient Total time spent on patient evaluation, chart review, assessment and plan, discussion discussion >35 minutes Plan discussed with: Patient My Orders My Orders Orders - BERNIE ALEMAN Procedure Category Date Status Time Patients Own PHA 05/17/24 In Process Medication 14:00 BERNIE ALEMAN May 17, 2024 15:57
[2024-05-17 17:00] VITALS: BP 112/63; PULSE 72; RESP 16; TEMP 98.5; O2SAT 98
[2024-05-17] MEDS: NICOTINE 21MG/24 HR TOPICAL PATCH TD ONE (17:26)
[2024-05-17 20:56] VITALS: BP 113/82; PULSE 73; RESP 18; TEMP 98; O2SAT 96
--- NOTE | 2024-05-17 21:44 | DVHPN2 ---
Progress Note - Dictate Date Seen: May 17, 2024 Medical Necessity Reason Pt with a Central, PICC or Fol: No Subjective Patient seen and examined at bedside. Breathing comfortably on room air. Overnight events reviewed. vital signs Vital Sign Date Time Temp Pulse Resp B/P (MAP) Pulse Ox O2 Delivery O2 Flow Rate FiO2 05/17/24 20:56 98.0 73 18 113/82 (92) 96 98.0 05/17/24 20:00 Room Air* 0 21 Total Intake and Output 05/16/24 05/16/24 05/17/24 15:00 23:00 07:00 Intake Total 760 ml 0 ml Output Total 2 ml Balance 760 ml -2 ml medications Current Medications Medications Dose Ordered Sig/Desean Route Start Time Stop Time Status Last Admin Dose Admin Azithromycin 250 mg DAILY PO 05/16/24 10:00 05/17/24 10:49 250 MG Ethambutol HCl 800 mg DAILY PO 05/16/24 10:00 05/17/24 10:49 800 MG Rifampin 600 mg DAILY PO 05/16/24 10:00 05/17/24 10:49 600 MG Rivaroxaban 15 mg QPM PO 05/15/24 22:15 05/17/24 17:25 15 MG Sodium Chloride 1,000 ml @ 100 mls/hr Q10H IV 05/16/24 12:00 05/17/24 08:00 100 MLS/HR Acetaminophen/ Hydrocodone Bitart 1 tab Q6H PO 05/16/24 12:00 05/17/24 17:25 1 TAB Hydromorphone HCl 0.25 mg Q6HPRN PRN IV 05/16/24 12:00 05/17/24 20:32 0.25 MG Patient Own Medication 1 TID PO 05/17/24 14:00 Nicotine 1 patch DAILY TD 05/18/24 10:00 objective Gen.: Patient lying in bed in no apparent distress. Breathing on room air. Head: Normocephalic, atraumatic. Eyes: EOMI/PERRLA. Ears: Normal hearing. Normal anatomy. Neck/trachea: Trachea midline, supple. Nose: Normal external anatomy. Mouth: Moist mucous membranes. Chest: Decreased air entry bilaterally. No wheezing or rhonchi. Cardiovascular: Positive S1, positive S2. Regular rate and rhythm. Abdomen: Positive bowel sounds in all 4 quadrants. Soft, non-tender, non- distended. : Deferred. Rectal: Deferred. Skin: Warm, dry. Intact. Extremities: 2+ radial pulses bilaterally. No lower extremity edema. Neuro: Awake, alert, oriented x3. No gross motor or sensory deficits. Cranial nerves II through XII intact. Gait not assessed. laboratory and microbiology Laboratory Tests 05/17/24 07:22 05/16/24 05:10 Test 05/17/24 07:22 Range/Units Serum Glucose 91 74-106 mg/dL Assessment/Plan Impression: MAC infection Cavitary/cystic lesions of lung Pulmonary nodules Atelectasis Nicotine dependence Non-adherence with MAC antibiotics Mediastinal Lymphadenopathy likely reactive Chronic pancreatitis Events: Remains on room air Supplemental oxygen PRN Continue bronchodilators Continue antibiotics Incentive spirometry ID recommendations appreciated. Encouraged adherence. Labs and imaging reviewed. Rest of plan as noted below. Plan: Supplemental oxygen PRN Titrate to keep O2 sats above 92%. Continue triple regimen antibiotics for MAC pneumonia. Bronchodilators PRN. Mucolytics/CPT Incentive spirometry Antitussive PRN for cough Monitor renal function. Monitor electrolytes. Supplement as necessary. Monitor ins and outs. Smoking cessation discussed for greater than 10 minutes DVT prophylaxis. Prognosis: Guarded given patient's multiple co-morbidities. Rest of plan per hospitalist and other consultants. Thank you Dr. Tidwell, for allowing me to participate in this patient's care. Further recommendations will depend on the patient's clinical course. Please do not hesitate to contact me if you have any questions or concerns. This medical document was created using an electronic medical record system with [employer] computerized dictation system. Although these documentations are being carefully reviewed, there may still be some phonetic and typographical changes. The errors are purely typographical, due to imperfection on the software program, and do not reflect any compromise in the patient's medical care. Dietary Evaluation Review Recommendations by RD: Protein Supplementation Comments: 1) Initiate multivitaimin qd 2) Initiate Ensure clear qd (d/c when diet advances to solid) 3) Advance to low-fat diet as medically feasible 4) F/u with endocrinology Expected Outcomes/Goals: 1) appetite and labs to improve 2) abdominal pain to resolve 3) diet to advance Plan discussed with: Patient, Other (CHARLY Gibson) EZE SEYMOUR MD May 17, 2024 21:44
[2024-05-18 01:00] VITALS: BP 98/58; PULSE 70; RESP 19; TEMP 97.9; O2SAT 95
[2024-05-18 05:00] VITALS: BP 90/53; PULSE 75; RESP 20; TEMP 97.7; O2SAT 93
[2024-05-18 07:38] LABS: Chloride 101 mmol/L (98-107)
[2024-05-18 07:39] LABS: Anion Gap 8 (5-15); Calcium 9.9 mg/dL (8.7-10.4); Carbon Dioxide 27 mmol/L (20-31)
[2024-05-18 07:44] LABS: BUN/Creatinine Ratio 11.6 (10.0-20.0); Blood Urea Nitrogen 8 mg/dL (9-23); Glucose 84 mg/dL (74-106); Sodium 136 mmol/L (136-145)
[2024-05-18 07:52] LABS: Basophils # (auto) 0 10 ^3/uL (0-0.2); Basophils % (auto) 0.5 % (0.0-2.0); Eosinophils # (auto) 0.4 10 ^3/uL (0-0.8); Eosinophils % (auto) 6.4 % (0.0-7.0); Hematocrit 44.6 % (41.0-53.0); Hemoglobin 14.8 g/dL (13.5-17.5); Lymphocytes # (auto) 2.5 10 ^3/uL (0.4-5.4); Lymphocytes % (auto) 37.9 % (10.0-50.0); Mean Corpuscular Hemoglobin 32.9 pg (28.0-32.0); Mean Corpuscular Hgb Conc. 33.2 g/dL (32.0-36.0); Mean Corpuscular Volume 99.1 fL (80.0-100.0); Monocytes # (auto) 0.6 10 ^3/uL (0-1.3); Monocytes % (auto) 8.3 % (0.0-12.0); Neutrophils # (auto) 3.1 10 ^3/uL (1.6-8.6); Neutrophils % (auto) 46.9 % (37.0-80.0); Nucleated Red Blood Cells % 0.3 %; Platelet Count (auto) 290 10^3/uL (140-450); Red Cell Distribution Width 13.9 % (11.8-14.3); White Blood Cell 6.6 10^3/uL (4.4-10.8)
[2024-05-18 08:00] VITALS: PULSE 87
[2024-05-18 09:00] VITALS: BP 112/81; PULSE 87; RESP 16; TEMP 98.2; O2SAT 96
[2024-05-18 09:57] LABS: Hepatitis B Core Total AB Negative (Negative)
[2024-05-18] MEDS: NICOTINE 21MG/24 HR TOPICAL PATCH TD SCH (10:00)
[2024-05-18 10:48] LABS: Hepatitis A Total Antibody Negative (Negative); Hepatitis B Surface Antibody Negative (Negative); Hepatitis B Surface Antigen Negative (Negative); Hepatitis C Antibody Negative (Negative)
[2024-05-18 13:00] VITALS: BP 100/74; PULSE 72; RESP 16; TEMP 98; O2SAT 94
--- NOTE | 2024-05-18 13:39 | DVHDSRES ---
Discharge Summary Date of Admission Resident Creating Document: BERNIE ALEMAN RESIDENT May 15, 2024 at 21:53 Date of Discharge: May 18, 2024 Admitting Diagnosis Intractable abdominal pain likely due to acute on chronic pancreatitis Labs/Diagnostic Data: Laboratory Results Test 05/18/24 06:17 05/17/24 07:22 05/16/24 05:10 05/16/24 00:03 White Blood Count 6.6 10^3/uL (4.4-10.8) Red Blood Count 4.50 10^6/uL (4.5-5.90) Hemoglobin 14.8 g/dL (13.5-17.5) Hematocrit 44.6 % (41.0-53.0) Mean Corpuscular Volume 99.1 fL (80.0-100.0) Mean Corpuscular Hemoglobin 32.9 pg (28.0-32.0) Mean Corpuscular Hemoglobin Concent 33.2 g/dL (32.0-36.0) Red Cell Distribution Width 13.9 % (11.8-14.3) Platelet Count 290 10^3/uL (140-450) Mean Platelet Volume 7.0 fL (6.9-10.8) Neutrophils (%) (Auto) 46.9 % (37.0-80.0) Lymphocytes (%) (Auto) 37.9 % (10.0-50.0) Monocytes (%) (Auto) 8.3 % (0.0-12.0) Eosinophils (%) (Auto) 6.4 % (0.0-7.0) Basophils (%) (Auto) 0.5 % (0.0-2.0) Neutrophils # (Auto) 3.1 10 ^3/uL (1.6-8.6) Lymphocytes # (Auto) 2.5 10 ^3/uL (0.4-5.4) Monocytes # (Auto) 0.6 10 ^3/uL (0-1.3) Eosinophils # (Auto) 0.4 10 ^3/uL (0-0.8) Basophils # (Auto) 0 10 ^3/uL (0-0.2) Nucleated Red Blood Cells 0.3 % Sodium Level 136 mmol/L (136-145) Potassium Level 4.0 mmol/L (3.5-5.1) Chloride Level 101 mmol/L (98-107) Carbon Dioxide Level 27 mmol/L (20-31) Anion Gap 8 (5-15) Blood Urea Nitrogen 8 mg/dL (9-23) Creatinine 0.69 mg/dL (0.700-1.30) Glomerular Filtration Rate Calc 109 mL/min (>90) BUN/Creatinine Ratio 11.6 (10.0-20.0) Serum Glucose 84 mg/dL (74-106) Calcium Level 9.9 mg/dL (8.7-10.4) Lipase 82 U/L (12-53) Hemoglobin A1c 5.2 % A1C (<5.7) Magnesium Level 1.9 mg/dL (1.6-2.6) Total Bilirubin < 0.2 mg/dL (0.2-1.0) Aspartate Amino Transferase (AST) < 8 U/L (13-40) Alanine Aminotransferase (ALT) 11 U/L (7-40) Alkaline Phosphatase 83 U/L (46-116) Lactate Dehydrogenase 184 U/L (120-246) Total Protein 6.7 g/dL (5.7-8.2) Albumin 4.1 g/dL (3.2-4.8) Plasma/Serum Blood Alcohol < 3.0 mg/dL (<10) Hepatitis A Antibody Total Negative (Negative) Hepatitis B Surface Antigen Negative (Negative) Hepatitis B Surface Antibody Negative (Negative) Hepatitis B Core Total Antibody Negative (Negative) Hepatitis C Antibody Negative (Negative) HIV (1&2) Antibody Negative (Negative) Urine Color Light-yellow (Yellow) Urine Clarity Clear (Clear) Urine pH 6.0 (5.0-9.0) Urine Specific [place] 1.011 (1.001-1.035) Urine Protein Negative (Negative) Urine Ketones Negative (Negative) Urine Blood Negative /uL (Negative) Urine Nitrite Negative (Negative) Urine Bilirubin Negative (Negative) Urine Urobilinogen Normal mg/dL (Negative) Urine Leukocyte Esterase Negative /uL (Negative) Urine RBC None seen /hpf (0 - 3) Urine Microscopic WBC /HPF (0-3) Urine Squamous Epithelial Cells None seen /hpf (<5) Urine Bacteria None seen /hpf (None Seen) Urine Glucose Normal mg/dL (Normal) Test 05/15/24 20:35 05/15/24 19:45 Gamma Glutamyl Transpeptidase 35 U/L (<73) Troponin I High Sensitivity 3 ng/L (</=54) Erythrocyte Sedimentation Rate 10 mm/hr (0-20) Lactic Acid Level 1.1 mmol/L (0.4-2.0) C-Reactive Protein High Sensitivity 0.20 mg/dL (<1.0) Other Laboratory Tests 05/18/24 06:17 Brief Hx & Hospital Course: HPI-patient is 54-year-old male with a history of chronic pancreatitis, uncertain etiology (pancreatic stones?), who presents with worsening abdominal pain. Patient reported worsening abdominal pain since yesterday, 12/25, radiating to the back. The patient has had multiple prior admissions for similar complaints and has been under evaluation at [place], where an ERCP was planned but postponed due to Mycobacterium avium complex (MAC) pneumonia. Since August, the patient has been on treatment with ethambutol, rifampin, and azithromycin. Recent labs show normal WBC a slightly elevated lipase of 135. Given his history, the patient is being admitted for further evaluation of acute on chronic pancreatitis and to study a cavitary lung lesion suspected to be related to MAC pneumonia. The patient is a chronic smoker and has a history of frequent discharges against medical advice (AMA). Pain management has been difficult, and he has required high dose of opioids in the past. CT abdomen, chest and pelvis on 05/14/2024 revealed-Multiple nodules and cavitary nodules in both lungs with an upper lobe predominance. Mediastinal and hilar lymphadenopathy. Differential considerations include cavitary pneumonia, fungal pneumonia, septic emboli, and neoplastic etiologies. Clinical correlation and continued follow-up is recommended. CT-guided biopsy could be performed if clinically indicated. 2. Changes of chronic pancreatitis. Cystic lesion in the head pancreas. Consider MRI of the abdomen with contrast on a nonemergent basis. No definite acute process in the abdomen identified. On 05/14/2024-CT abdomen revealed- Limited exam without intravenous contrast. Findings suggestive of chronic pancreatitis. No hydronephrosis or nephrolithiasis. Nonspecific dilation of small bowel, could be ileus or enteritis. Large amount of stool throughout the colon suggesting constipation. If there is continued concern consider follow-up exam with intravenous contrast. Nodular airspace disease in the left lower lung. Hospital course-patient came with a complaint of CP intractable abdominal pain, radiating to the back. Patient was admitted to the hospital due to intractable abdominal pain likely due to acute on chronic pancreatitis. Initial lab workup revealed elevated lipase 135. CT abdomen, chest and pelvis on 05/14/2024 revealed-Multiple nodules and cavitary nodules in both lungs with an upper lobe predominance. Mediastinal and hilar lymphadenopathy. Differential considerations include cavitary pneumonia, fungal pneumonia, septic emboli, and neoplastic etiologies. Clinical correlation and continued follow-up is recommended. CT- guided biopsy could be performed if clinically indicated. 2. Changes of chronic pancreatitis. Cystic lesion in the head pancreas. Consider MRI of the abdomen with contrast on a nonemergent basis. No definite acute process in the abdomen identified. On 05/14/2024-CT abdomen revealed- Limited exam without intravenous contrast. Findings suggestive of chronic pancreatitis. No hydronephrosis or nephrolithiasis. Nonspecific dilation of small bowel, could be ileus or enteritis. Large amount of stool throughout the colon suggesting constipation. If there is continued concern consider follow-up exam with intravenous contrast. Nodular airspace disease in the left lower lung. Patient was treated conservatively. Patient was also seen by noticed, recommended to resume Creon. Patient was also seen by Pulmonary of the chest for MAC pneumonia with cavitary lesion with mediastinal lymphadenopathy. Recommendation reviewed and appreciated. Patient's symptom improved gradually with conservative management. Patient is being discharged home with the advice of resuming home medications, to follow up with the primary care physician in 1 week and also to keep up with the appointment at [facility] for further evaluation and care of chronic pancreatitis likely due to pancreatic calculi/cystic lesion of the pancreas. Patient verbalized understanding. Patient was hemodynamically stable on discharge. Diagnosis- Intractable abdominal pain likely due to acute on chronic pancreatitis Acute on chronic pancreatitis Cyst in the pancreatic head with possible calculi Cavitary lesion of the lungs bilateral likely due to MAC Mediastinal and hilar lymphadenopathy Discharge plan Please resume home medications Please follow up with the primary care physician in 1 week Please follow up with your [facility] appointment for further evaluation and care of chronic pancreatitis with suspected cystic lesion/pancreatic calculi Operations or Procedures [address] [address] Ph: [phone] DIAGNOSTIC IMAGING Diagnostic Imaging Report : [id number] Signed PATIENT: BC STERLING ACCT: [id number] UNIT: [id number] : 1970 LOC: OVERFLOW ROOM / BED: 1011-ER / A AGE / SEX: 54 / M ADM STATUS: ADM IN SERVICE [id number] ORDERING PHYSICIAN: NEYMAR GOULD PROCEDURE(s): CAPWC - CT CHST AB PLV W CON-ORAL & IV REASON: CHEST AND ABDOMINAL PAIN ORDER NUMBER(s): [id number], ACCESSION NUMBER(s): [id number] Exam: CT CT CHST AB PLV W CON-ORAL IV History: CHEST AND ABDOMINAL PAIN Comparison Study:05/14/24 Technique: Multidetector spiral CT of the chest, abdomen and pelvis was performed from lower neck to pubic symphysis. 80 cc Omni 300 intravenous contrast was administered during this examination. Arterial imaging was obtained. Axial, coronal and sagittal multiplanar reformats were performed by the technologist on a separate workstation. Radiation Dose : Chest/Abdomen/Pelvis: CTDIvol 7.0 mGy, DLP 544.22 mGy*cm. Findings: Lower neck: Normal thyroid. Lungs: Bilateral nodules and cavitary nodules with an upper lobe predominance, largest in the right upper lobe measures up to 40 mm. Left apical cavity measuring up to 42 mm. Heart/Vascular Structures: Normal heart size. No pericardial effusion. Lymph Nodes: Mediastinal and hilar lymphadenopathy. Pleura: No pleural effusion or significant pneumothorax. Liver: The liver is normal in size. No focal lesions. Normal hepatic vascular enhancement. Gallbladder and biliary Tree: Unremarkable Spleen: Unremarkable Pancreas: Coarse calcifications throughout the pancreas with dilated pancreatic duct. Cystic lesion in the head of the pancreas measuring up to 23 mm. Adrenal Glands: Unremarkable Kidneys: Kidneys demonstrate normal symmetric enhancement without focal lesions, calculi or hydronephrosis. Bladder: Unremarkable Bowel: The stomach is grossly normal in appearance. Small bowel and colon are normal in caliber and distribution. The appendix is not visualized; however, no secondary findings of acute appendicitis identified. Ascites: Absent Lymphadenopathy: No mesenteric, retroperitoneal or periportal lymphadenopathy. Abdominal wall and Mesentery: Unremarkable. Vasculature: The visualized abdominal aorta is normal in size and caliber. Abdominal and pelvic vessels demonstrate normal enhancement. Pelvic Organs: Unremarkable Musculoskeletal: No aggressive focal bony lesions, acute fractures or dislocation. IMPRESSION: 1. Multiple nodules and cavitary nodules in both lungs with an upper lobe predominance. Mediastinal and hilar lymphadenopathy. Differential considerations include cavitary pneumonia, fungal pneumonia, septic emboli, and neoplastic etiologies. Clinical correlation and continued follow-up is recommended. CT- guided biopsy could be performed if clinically indicated. 2. Changes of chronic pancreatitis. Cystic lesion in the head pancreas. Consider MRI of the abdomen with contrast on a nonemergent basis. No definite acute process in the abdomen identified. HS:Y ATED BY: ARNEL BRADSHAW MD DICTATED DATE/TIME: 05/14/241738 SIGNED BY: ARNEL BRADSHAW MD SIGNED DATE/TIME: 05/14/241738 CC: [place] [id number] Ph: [phone] DIAGNOSTIC IMAGING Diagnostic Imaging Report : [id number] Signed PATIENT: BC STERLING ACCT: [id number] UNIT: [id number] : 1970 LOC: ER ROOM / BED: / AGE / SEX: 54 / M ADM STATUS: REG ER SERVICE [id number] ORDERING PHYSICIAN: NEYMAR GOULD PROCEDURE(s): ABPL - CT AB PEL WO CON-NO ORAL OR IV REASON: abd pain ORDER NUMBER(s): [id number], ACCESSION NUMBER(s): [id number] Exam: CT CT AB PEL WO CON-NO ORAL OR IV History: abd pain Comparison Study: CT CT AB PEL WO CON-NO ORAL OR IV on DOS: 04/19/24, CT CT AB PEL WO CON-NO ORAL OR IV on DOS: 03/12/24 Technique: Multidetector spiral CT of the abdomen and pelvis was performed from lung bases to pubic symphysis. Imaging was performed without IV contrast. Axial, coronal and sagittal multiplanar reformats were obtained from the axial data set by the technologist. Radiation dose : Abdomen/Pelvis: CTDIvol 5 mGy, DLP 254 mGy*cm. Findings: Evaluation of solid organs is limited due to lack of intravenous contrast use. Lung Bases: Nodular opacity left lung base measuring up to 7 mm. Liver: The liver is normal in size. No focal lesions. Gallbladder and biliary Tree: Unremarkable Spleen: Unremarkable Pancreas: Extensive calcifications throughout the pancreas. Pancreatic duct is dilated. Adrenal Glands: Unremarkable Kidneys: Kidneys are grossly normal without calculi or hydronephrosis. Bladder: Grossly unremarkable for degree of distention. Bowel: The stomach is grossly normal in appearance. Diffuse mildly distended loops of small bowel with a few air-fluid levels. Large amount of stool throughout the colon. The appendix is not visualized; however, no secondary findings of acute appendicitis identified. Ascites: Absent Lymphadenopathy: No mesenteric, retroperitoneal or periportal lymphadenopathy. Abdominal wall and Mesentery: Unremarkable. Vasculature: Calcified atherosclerotic disease. Pelvic Organs: Unremarkable Musculoskeletal: No aggressive focal bony lesions, acute fractures or dislocation. IMPRESSION: 1. Limited exam without intravenous contrast. Findings suggestive of chronic pancreatitis. No hydronephrosis or nephrolithiasis. Nonspecific dilation of small bowel, could be ileus or enteritis. Large amount of stool throughout the colon suggesting constipation. If there is continued concern consider follow-up exam with intravenous contrast. Nodular airspace disease in the left lower lung. Consider dedicated chest CT. Radiation optimization: All CT scans at this facility use at least one of these dose optimization techniques: Automated exposure control mA and/or kV adjustment per patient size (includes targeted exams where dose is matched to clinical indication) or iterative reconstruction. HS:Y ATED BY: ARNEL BRADSHAW MD DICTATED DATE/TIME: 05/14/241317 SIGNED BY: ARNEL BRADSHAW MD SIGNED DATE/TIME: 05/14/24 131 CC: Condition at Discharge: Stable Final Diagnosis/Problems List Intractable abdominal pain likely due to acute on chronic pancreatitis Acute on chronic pancreatitis Cyst in the pancreatic head with possible calculi Cavitary lesion of the lungs bilateral likely due to MAC Mediastinal and hilar lymphadenopathy Discharge Disposition: Home Discharge Instruct/Medications Diet: See Comment Activity: No Restrictions, As Tolerated Follow Up/Referral: Please follow up with the primary care physician in 1 week Please keep up with a [facility] scheduled for further evaluation and care Medications: Please resume home medications Discharge Statement: "Patient was advised to return to the ER or call 911 if any headaches, dizziness, shortness of breath, chest pain, abdominal pain, bleeding, fevers, or worsening of medical condition. Patient was counseled about treatment plan, medications, possible side effects, patientverbalized understanding. All questions were answered to the best of my ability. This discharge took greater then 30 minutes in planning, reviewing documentation, counseling the patient, and discussing with other team members." ASSESSMENT ASSESSMENT Assessment Intractable abdominal pain due to acute on chronic pancreatitis HUBERT DARLING RESIDENT May 18, 2024 13:39
[2024-05-18 14:00] VITALS: BP 121/64; PULSE 89; RESP 16; TEMP 36.7; O2SAT 95
--- NOTE | 2024-05-18 14:20 | DVHPN2 ---
Progress Note Date Seen: May 18, 2024 Resident Creating Document: CONG WILLIS RESIDENT Medical Necessity Reason Pt with a Central, PICC or Fol: No Subjective Review of Systems Patient seen and examined at bedside Tolerating diet Continued to have mild epigastric abdominal pain No diarrhea Continue to evaluation of lipase enzymes 82 Lipase enzyme not trending up. No new complaint Objective vital signs Vital Sign Date Time Temp Pulse Resp B/P (MAP) Pulse Ox O2 Delivery O2 Flow Rate FiO2 05/18/24 13:00 98.0 72 16 100/74 (83) 94 98.0 05/18/24 08:00 Room Air* 0 21 Total Intake and Output 05/17/24 05/17/24 05/18/24 15:00 23:00 07:00 Intake Total 0 ml 300 ml Balance 0 ml 300 ml medications Current Medications Medications Dose Ordered Sig/Desean Route Start Time Stop Time Status Last Admin Dose Admin Azithromycin 250 mg DAILY PO 05/16/24 10:00 05/18/24 09:31 250 MG Ethambutol HCl 800 mg DAILY PO 05/16/24 10:00 05/18/24 12:22 800 MG Rifampin 600 mg DAILY PO 05/16/24 10:00 05/18/24 12:21 600 MG Rivaroxaban 15 mg QPM PO 05/15/24 22:15 05/17/24 17:25 15 MG Sodium Chloride 1,000 ml @ 100 mls/hr Q10H IV 05/16/24 12:00 05/18/24 04:00 100 MLS/HR Acetaminophen/ Hydrocodone Bitart 1 tab Q6H PO 05/16/24 12:00 05/17/24 17:25 1 TAB Hydromorphone HCl 0.25 mg Q6HPRN PRN IV 05/16/24 12:00 05/18/24 09:32 0.25 MG Patient Own Medication 1 TID PO 05/17/24 14:00 Nicotine 1 patch DAILY TD 05/18/24 10:00 Examination General Appearance: Cooperative. Well developed. Well nourished. NAD Head Exam: Normal inspection Neck Exam: Normal inspection. Non-tender. Normal alignment Pulmonary/Respiratory: Chest non-tender. Clear bilateral breath sounds Cardiovascular/Chest: Regular rate and rhythm. No murmurs. No JVD. Peripheral Pulses: 2+ Radial (R). 2+ Radial (L). 2+ Pedal (R). 2+ Pedal (L) Abdominal Exam: Normal bowel sounds. Soft. Nontender. No hepatospenomegaly. No masses Ankle Exam: Negative ankle edema Lower extremities: Negative lower extremity edema Neuro/Mental Status: A&O x4. Coherent Thoughts/Psych: Normal thought pattern. Appropriate mood and affect. Good judgement and insight Appearance: In no acute distress Skin Exam: Normal inspection. Normal color. Warm. Dry laboratory and microbiology Laboratory Tests 05/18/24 06:17 Test 05/18/24 06:17 Range/Units Serum Glucose 84 74-106 mg/dL Microbiology Date/Time Source Procedure Growth Status 05/16/24 14:25 Nose MRSA Screen - Final Complete Problem List/Assessment/Plan Problem List/Assessment/Plan Acute on chronic pancreatitis Intractable abdominal pain Atypical mycobacterium pneumonia Pancreatic lesions Plan/recommendation Dr Thomas -Continue Creon supplement one tablet p.o. 4 times with each meal -Patient was supposed to get ERCP in outpatient setting when medically stable -Continue treatment for atypical mycobacterium pneumonia -Tolerating diet full liquid -Monitor labs -Lipase trending down -Pending CA 19 nine -Continue conservative management IV fluid hydration. Plan discussed with: Patient, Other (RN) Dietary Evaluation Review Recommendations by RD: Protein Supplementation Comments: 1) Initiate multivitaimin qd 2) Initiate Ensure clear qd (d/c when diet advances to solid) 3) Advance to low-fat diet as medically feasible 4) F/u with endocrinology Expected Outcomes/Goals: 1) appetite and labs to improve 2) abdominal pain to resolve 3) diet to advance CONG WILLIS RESIDENT May 18, 2024 14:20
--- NOTE | 2024-05-18 21:38 | DVHPN2 ---
Progress Note - Dictate Date Seen: May 18, 2024 Medical Necessity Reason Pt with a Central, PICC or Fol: No Subjective Patient seen and examined at bedside. Breathing comfortably on room air. Overnight events reviewed. vital signs Vital Sign Date Time Temp Pulse Resp B/P (MAP) Pulse Ox O2 Delivery O2 Flow Rate FiO2 05/18/24 14:00 36.7 89 16 95 05/18/24 13:00 100/74 (83) 05/18/24 08:00 Room Air* 0 21 Total Intake and Output 05/17/24 05/17/24 05/18/24 15:00 23:00 07:00 Intake Total 0 ml 300 ml Balance 0 ml 300 ml objective Gen.: Patient lying in bed in no apparent distress. Breathing on room air. Head: Normocephalic, atraumatic. Eyes: EOMI/PERRLA. Ears: Normal hearing. Normal anatomy. Neck/trachea: Trachea midline, supple. Nose: Normal external anatomy. Mouth: Moist mucous membranes. Chest: Decreased air entry bilaterally. No wheezing or rhonchi. Cardiovascular: Positive S1, positive S2. Regular rate and rhythm. Abdomen: Positive bowel sounds in all 4 quadrants. Soft, non-tender, non- distended. : Deferred. Rectal: Deferred. Skin: Warm, dry. Intact. Extremities: 2+ radial pulses bilaterally. No lower extremity edema. Neuro: Awake, alert, oriented x3. No gross motor or sensory deficits. Cranial nerves II through XII intact. Gait not assessed. laboratory and microbiology Laboratory Tests 05/18/24 06:17 Test 05/18/24 06:17 Range/Units Serum Glucose 84 74-106 mg/dL Assessment/Plan Impression: MAC infection Cavitary/cystic lesions of lung Pulmonary nodules Atelectasis Nicotine dependence Non-adherence with MAC antibiotics Mediastinal Lymphadenopathy likely reactive Chronic pancreatitis Events: Remains on room air Supplemental oxygen PRN Continue triple regimen antibiotics for MAC pneumonia. Incentive spirometry Encouraged adherence. Smoking cessation discussed. Patient is stable for discharge from the pulmonary standpoint. Labs and imaging reviewed. Rest of plan as noted below. Plan: Supplemental oxygen PRN Titrate to keep O2 sats above 92%. Continue triple regimen antibiotics for MAC pneumonia. ID recommendations appreciated. Bronchodilators PRN. Mucolytics/CPT Incentive spirometry Antitussive PRN for cough Monitor renal function. Monitor electrolytes. Supplement as necessary. Monitor ins and outs. Smoking cessation discussed for greater than 10 minutes DVT prophylaxis. Prognosis: Guarded given patient's multiple co-morbidities. Rest of plan per hospitalist and other consultants. Thank you Dr. Tidwell, for allowing me to participate in this patient's care. Further recommendations will depend on the patient's clinical course. Please do not hesitate to contact me if you have any questions or concerns. This medical document was created using an electronic medical record system with [employer] dictation system. Although these documentations are being carefully reviewed, there may still be some phonetic and typographical changes. The errors are purely typographical, due to imperfection on the software program, and do not reflect any compromise in the patient's medical care. Dietary Evaluation Review Recommendations by RD: Protein Supplementation Comments: 1) Initiate multivitaimin qd 2) Initiate Ensure clear qd (d/c when diet advances to solid) 3) Advance to low-fat diet as medically feasible 4) F/u with endocrinology Expected Outcomes/Goals: 1) appetite and labs to improve 2) abdominal pain to resolve 3) diet to advance Plan discussed with: Patient, Other (CHARLY Escobar) EZE SEYMOUR MD May 18, 2024 21:38
--- NOTE | 2024-05-19 20:56 | DVHPN2 ---
Consult Progress Note Objective vital signs Vital Sign Date Time Temp Pulse Resp B/P (MAP) Pulse Ox O2 Delivery O2 Flow Rate FiO2 05/18/24 14:00 36.7 89 16 95 05/18/24 13:00 100/74 (83) 05/18/24 08:00 Room Air* 0 21 laboratory and microbiology Laboratory Tests 05/18/24 06:17 Test 05/18/24 06:17 Range/Units Serum Glucose 84 74-106 mg/dL Dietary Evaluation Review Recommendations by RD: Protein Supplementation Comments: 1) Initiate multivitaimin qd 2) Initiate Ensure clear qd (d/c when diet advances to solid) 3) Advance to low-fat diet as medically feasible 4) F/u with endocrinology Expected Outcomes/Goals: 1) appetite and labs to improve 2) abdominal pain to resolve 3) diet to advance ADELINA WILLIAM MD May 19, 2024 20:56
== END 2024-05-18 14:40 | disposition home or self-care (01) | DRG 282 ==
LOC: ER 18:30 → OVERFLOW 21:53 → EAST 05-16 18:15 → CENTRAL 05-16 20:40
PROVIDERS: ADMIT Student in an Organized Health Care Education/Training Program; ATTEND Student in an Organized Health Care Education/Training Program
DX: K85.90 Acute pancreatitis without necrosis or infection, unspecified (principal); J15.8 Pneumonia due to other specified bacteria; D68.59 Other primary thrombophilia; A31.0 Pulmonary mycobacterial infection; F17.200 Nicotine dependence, unspecified, uncomplicated; J98.11 Atelectasis; R59.1 Generalized enlarged lymph nodes; Z71.6 Tobacco abuse counseling; Z79.2 Long term (current) use of antibiotics; Z79.899 Other long term (current) drug therapy
CPT/HCPCS: 36415; 80048; 80053; 80320; 81001; 82977; 83036; 83605; 83615; 83690; 83735; 84484; 85025; 85652; 86141; 86301; 86703; 86704; 86706; 86708; 86803; 87081; 87340; 96361; 96374; G0378

== ENCOUNTER 2024-06-02 14:03 | Emergency (ER) | payer MEDICAID ==
[~2024-06-02] VITALS: Ht 167.6 cm; Wt 55.0 kg
--- NOTE | 2024-06-02 15:21 | ED.PDOC ---
GI ASSESSMENT HPI Comments 54 y/o M, with PMHX of anxiety and pancreatitis presents to the ED for CC of abdominal pain. Patient states, that he has been experiencing LLQ pain that radiates to his back xdays. Patient relays, that he has experienced similar symptoms in the past due to pancreatolithiasis. Patient comments on, having an appointment at [facility] for an ERCP next week; symptoms have worsened an is unable to wait for appointment. Patient denies nausea, vomiting, diarrhea, or body-aches. No other symptoms or modifying factors at this time. Chief Complaint: Abdominal Pain Time Seen by MD: 15:05 Primary Care Provider: JASE Reviewed Notes: Nurses Notes, Medications, Allergies Allergies: Coded Allergies: NO KNOWN ALLERGIES (Unverified , 02/16/24) Home Meds Active Scripts Oxycodone Hcl (OxyCONTIN ER Tablet) 20 Mg Tb, 1 TAB PO BID for 5 Days, #10 TAB Prov:COREY SHEPHERD MD 04/21/24 Acetaminophen (Acetaminophen) 325 Mg Tab, 650 MG PO Q4HR for 30 Days, #360 TAB Prov:EVE MARTÍNEZ RESIDENT 04/21/24 Ibuprofen (Ibuprofen) 800 Mg Tab, 800 MG PO Q8HP PRN for 10 Days, #30 TAB Prov:EVE MARTÍNEZ RESIDENT 04/21/24 Hydrocodone-Acetaminophen (Hydrocodone Bitartrate/AC 5-325 mg) 1 Tab Tab, 1 TAB PO QID PRN, #30 TAB Prov:FLOR[place] BOWMAN MD 03/15/24 Oxycodone W/ Acetaminophen (Percocet 5/325MG) 1 Tab Tb, 1 TAB PO QID for 5 Days, #20 TAB Prov:BERENICE MANNING NP 02/18/24 Reported Medications Multiple Vitamin (Multivitamin) 1 Tab Tab, 1 TAB PO DAILY 05/14/24 Folic Acid (Folic Acid) 1 Mg Tab, 1 TAB PO DAILY 03/12/24 Multiple Vitamin (One-Daily Multi-Vitamin) 1 Tab Tab, 1 TAB PO DAILY 03/12/24 Pancreatic Enzymes (Creon) 12,000 Unt Cap, PO 02/17/24 Sucralfate (Sucralfate) 1 Gm Tab, 1 TAB PO QID 02/16/24 Rivaroxaban (Xarelto) 2.5 Mg Tab, PO 02/16/24 Magnesium Oxide (True Magnesium Oxide) 400 Mg Tab, 1 TAB PO DAILY 02/16/24 Ethambutol Hcl (Ethambutol Hcl) 100 Mg Tab, 800 MG PO DAILY 02/16/24 Rifampin (Rifampin) 150 Mg Cap, 150 MG PO DAILY 02/16/24 Azithromycin (Azithromycin) 250 Mg Tab, 500 MG PO DAILY 02/16/24 Information Source: Patient Mode of Arrival: Ambulatory Timing: Days Duration: Since onset Prehospital treatment: None Quality: None Vomitus: None Severity: Moderate Recent: None Recent Hx of: None Pain Location: LLQ Modifying Factors: Nothing Associated sign and symptoms: None Past Medical History PAST MEDICAL HISTORY: Anxiety Surgical History: Denies all surgeries Family History Family History: Unknown Social History Smoker: Non-Smoker Alcohol: Sober Drugs: Denies Drug Use Lives In: Home Constitutional: reports: chills; denies: diaphoresis, fatigue, fever, malaise, sweats, weakness, others EENTM: denies: blurred vision, double vision, ear bleeding, ear discharge, ear drainage, ear pain, ear ringing, eye pain, eye redness, hearing loss, mouth pain, mouth swelling, nasal discharge, nose bleeding, nose congestion, nose pain, photophobia, tearing, throat pain, throat swelling, voice changes, others Respiratory: denies: cough, hemoptysis, orthopnea, SOB at rest, shortness of breath, SOB with excertion, stridor, wheezing, others Cardiovascular: denies: chest pain, dizzy spells, diaphoresis, Dyspnea on exertion, edema, irregular heart beat, left arm pain, lightheadedness, palpitations, PND, syncope, others Gastrointestinal: reports: abdominal pain; denies: abdomen distended, blood streaked bowels, constipated, diarrhea, dysphagia, difficulty swallowing, hematemesis, melena, nausea, poor appetite, poor fluid intake, rectal bleeding, rectal pain, vomiting, others Genitourinary: denies: burning, dysuria, flank pain, frequency, hematuria, incontinence, penile discharge, penile sore, pain, testicle pain, testicle swelling, urgency, others Neurological: denies: dizziness, fainting, headache, left sided numbness, left sided weakness, numbness, paresthesia, pre-existing deficit, right sided nu mbness, right sided weakness, seizure, speech problems, tingling, tremors, weakness, others Musculoskeletal: reports: back pain; denies: gout, joint pain, joint swelling, muscle pain, muscle stiffness, neck pain, others Integumetry: denies: bruises, change in color, change in hair/nails, dryness, laceration, lesions, lumps, rash, wounds, others Allergic/Immunocompromised: denies: Difficulty Healing, Frequent Infections, H shaq, Itching, others Hematologic/Lymphatic: denies: anemia, blood clots, easy bleeding, easy bruising, swollen glands, others Endocrine: denies: excessive hunger, excessive sweating, excessive thirst, excessive urination, flushing, intolerance to cold, intolerance to heat, unexplained weight gain, unexplained weight loss, others Psychiatric: denies: anxiety, bipolar disorder, depression, hopeless, panic disorder, schizophrenia, sleepless, suicidal, others All Other Systems: Reviewed and Negative Physical Exam General Appearance: Mild Distress HEENT: Normal ENT Inspection, Pharynx Normal, TMs Normal Neck: Full Range of Motion, Non-Tender, Normal, Normal Inspection Respiratory: Chest Non-Tender, Lungs Clear, No Accessory Muscle Use, No Respiratory Distress, Normal Breath Sounds Cardiovascular: No Edema, No JVD, No Murmur, No Gallop, Normal Peripheral Pulses, Regular Rate/Rhythm Breast Exam: Deferred Gastrointestinal: No Organomegaly, Non Tender, No Pulsatile Mass, Normal Bowel Sounds, Soft Genitalia: Deferred Pelvic: Deferred Rectal: Deferred Extremities: No calf tenderness, Normal capillary refill, Normal inspection, Normal range of motion, Non-tender, No pedal edema Musculoskeletal : Apperance: Normal Neurologic: Alert, window shade cutter II-XII nml as Tested, No Motor Deficits, Normal Affect, Normal Mood, No Sensory Deficits Cerebellar Function: Normal Reflexes: Normal Skin: Dry, Normal Color, Warm Lymphatic: No Adenopathy Was a procedure done? Was a procedure done?: No GI differential Dx Differential Diagnosis: Gastritis/PUD, Pancreatitis, Electrolyte Imbalance, Food Poisoning, Bacterial, Viral X-Ray, Labs, Meds, VS Vital Signs Date Time Temp Pulse Resp B/P (MAP) Pulse Ox O2 Delivery O2 Flow Rate FiO2 06/02/24 17:53 74 16 120/63 06/02/24 16:00 93 20 125/85 06/02/24 15:46 97.7 93 16 128/85 (99) 97 97.7 06/02/24 15:46 93 16 97 Room Air 06/02/24 14:57 98.1 91 16 106/61 (76) 98 98.1 Lab Test 06/02/24 16:18 Range/Units White Blood Count 6.3 4.4-10.8 10^3/uL Red Blood Count 4.46 L 4.5-5.90 10^6/uL Hemoglobin 14.9 13.5-17.5 g/dL Hematocrit 44.3 41.0-53.0 % Mean Corpuscular Volume 99.4 80.0-100.0 fL Mean Corpuscular Hemoglobin 33.4 H 28.0-32.0 pg Mean Corpuscular Hemoglobin Concent 33.6 32.0-36.0 g/dL Red Cell Distribution Width 13.8 11.8-14.3 % Platelet Count 279 140-450 10^3/uL Mean Platelet Volume 6.6 L 6.9-10.8 fL Neutrophils (%) (Auto) 48.3 37.0-80.0 % Lymphocytes (%) (Auto) 37.2 10.0-50.0 % Monocytes (%) (Auto) 10.3 0.0-12.0 % Eosinophils (%) (Auto) 3.5 0.0-7.0 % Basophils (%) (Auto) 0.7 0.0-2.0 % Neutrophils # (Auto) 3.0 1.6-8.6 10 ^3/uL Lymphocytes # (Auto) 2.3 0.4-5.4 10 ^3/uL Monocytes # (Auto) 0.6 0-1.3 10 ^3/uL Eosinophils # (Auto) 0.2 0-0.8 10 ^3/uL Basophils # (Auto) 0 0-0.2 10 ^3/uL Nucleated Red Blood Cells 0.1 % Sodium Level 141 136-145 mmol/L Potassium Level 3.8 3.5-5.1 mmol/L Chloride Level 109 H 98-107 mmol/L Carbon Dioxide Level 29 20-31 mmol/L Anion Gap 3 L 5-15 Blood Urea Nitrogen 11 9-23 mg/dL Creatinine 0.75 0.700-1.30 mg/dL Glomerular Filtration Rate Calc 107 >90 mL/min BUN/Creatinine Ratio 14.7 10.0-20.0 Serum Glucose 128 H 74-106 mg/dL Calcium Level 9.5 8.7-10.4 mg/dL Total Bilirubin < 0.2 L 0.2-1.0 mg/dL Aspartate Amino Transferase (AST) 16 13-40 U/L Alanine Aminotransferase (ALT) 14 7-40 U/L Alkaline Phosphatase 100 46-116 U/L Total Protein 7.1 5.7-8.2 g/dL Albumin 4.3 3.2-4.8 g/dL Lipase 82 H 12-53 U/L Plasma/Serum Blood Alcohol 3.8 <10 mg/dL Current Medications Medications (Trade) Dose Ordered Sig/Desean Route Start Time Stop Time Status Last Admin Ondansetron HCl (Zofran) 4 mg ONCE ONCE IV 06/02/24 15:15 06/02/24 15:16 DC 06/02/24 16:00 Sodium Chloride 1,000 ml @ 1,000 mls/hr Q1H ONCE IVB 06/02/24 15:15 06/02/24 16:14 DC 06/02/24 15:43 Morphine Sulfate 4 mg ONCE ONCE IV 06/02/24 15:15 06/02/24 15:16 DC 06/02/24 16:00 Pantoprazole Sodium (Protonix) 40 mg ONCE ONCE IV 06/02/24 15:15 06/02/24 15:16 DC 06/02/24 16:00 Morphine Sulfate 4 mg ONCE ONCE IV 06/02/24 17:15 06/02/24 17:16 DC 06/02/24 17:53 CT ABD PEL (05/14/24) IMPRESSION: 1. Limited exam without intravenous contrast. Findings suggestive of chronic pancreatitis. No hydronephrosis or nephrolithiasis. Nonspecific dilation of small bowel, could be ileus or enteritis. Large amount of stool throughout the colon suggesting constipation. If there is continued concern consider follow-up exam with intravenous contrast. Nodular airspace disease in the left lower lung. Consider dedicated chest CT. Radiation optimization: All CT scans at this facility use at least one of these dose optimization techniques: Automated exposure control mA and/or kV adjustment per patient size (includes targeted exams where dose is matched to clinical indication) or iterative reconstruction. The patient's CBC is within normal limits The chemistry panel is within normal limits The lipase is 82 At this time, we did review the findings from the previous CT scan and there does not seem to be any significant change except for some constipation The patient was discharged and to follow up for his possible ERCP and [place] The patient was given multiple doses of pain medication The patient was given morphine 4 mg IV push for the pain We repeated the morphine and Zofran The patient was being discharged Time of 1ST Reevaluation: 15:35 Reevaluation 1ST: Unchanged Patient Education/Counseling: Diagnosis, Treatment, Prognosis, Need For Follow Up Family Education/Counseling: No Family Present Departure 1 Departure Time of Disposition: 18:47 Impression: Primary Impression: Chronic pancreatitis Qualified Codes: K86.1 - Other chronic pancreatitis Disposition: 01 HOME / SELF CARE / HOMELESS Condition: Fair Discharged With: Self Critical Care Note Critical Care Time?: No Stability Stability form required: No Heart Score Heart Score: Heart Score Response (Comments) Value History N/A 0 EKG N/A 0 Age N/A 0 Risk Factors N/A 0 Troponin N/A 0 Total 0 I personally scribed for CINDY CROW MD ([email or web address]) on 06/02/24 at 15:21. Electronically submitted by Lorri Trujillo ([email or web address]). CINDY CROW MD Jun 02, 2024 15:21
[2024-06-02] MEDS: SODIUM CHLORIDE 0.9% 1,000 ML IVB ONE (15:43)
[2024-06-02] MEDS: PANTOPRAZOLE 40 MG/10 ML VIAL INJ IV ONE (16:00)
[2024-06-02] MEDS: ONDANSETRON HCL 4 MG/2 ML VIAL IV ONE (16:00)
[2024-06-02] MEDS: MORPHINE SULFATE 4 MG/ML SYR/VIAL IV ONE ×2 (16:00→17:53)
[2024-06-02 16:32] LABS: Basophils # (auto) 0 10 ^3/uL (0-0.2); Basophils % (auto) 0.7 % (0.0-2.0); Eosinophils # (auto) 0.2 10 ^3/uL (0-0.8); Eosinophils % (auto) 3.5 % (0.0-7.0); Hematocrit 44.3 % (41.0-53.0); Hemoglobin 14.9 g/dL (13.5-17.5); Lymphocytes # (auto) 2.3 10 ^3/uL (0.4-5.4); Lymphocytes % (auto) 37.2 % (10.0-50.0); Mean Corpuscular Hemoglobin 33.4 pg (28.0-32.0); Mean Corpuscular Hgb Conc. 33.6 g/dL (32.0-36.0); Mean Corpuscular Volume 99.4 fL (80.0-100.0); Monocytes # (auto) 0.6 10 ^3/uL (0-1.3); Monocytes % (auto) 10.3 % (0.0-12.0); Neutrophils % (auto) 48.3 % (37.0-80.0); Nucleated Red Blood Cells % 0.1 %; Platelet Count (auto) 279 10^3/uL (140-450); Red Blood Cells 4.46 10^6/uL (4.5-5.90); Red Cell Distribution Width 13.8 % (11.8-14.3); White Blood Cell 6.3 10^3/uL (4.4-10.8)
[2024-06-02 16:50] LABS: Alanine Aminotransferase 14 U/L (7-40); Albumin 4.3 g/dL (3.2-4.8); Alkaline Phosphatase 100 U/L (46-116); Anion Gap 3 (5-15); Aspartate Aminotransferase 16 U/L (13-40); BUN/Creatinine Ratio 14.7 (10.0-20.0); Bilirubin, Total < 0.2 mg/dL (0.2-1.0); Blood Alcohol 3.8 mg/dL (<10); Blood Urea Nitrogen 11 mg/dL (9-23); Calcium 9.5 mg/dL (8.7-10.4); Carbon Dioxide 29 mmol/L (20-31); Chloride 109 mmol/L (98-107); Glucose 128 mg/dL (74-106); Potassium 3.8 mmol/L (3.5-5.1); Sodium 141 mmol/L (136-145); Total Protein 7.1 g/dL (5.7-8.2)
[2024-06-02 17:09] LABS: Lipase 82 U/L (12-53)
[2024-06-02 18:58] VITALS: BP 147/78; PULSE 77; RESP 17; TEMP 98.7; O2SAT 97
== END 2024-06-02 19:16 | disposition home or self-care (01) ==
LOC: ER 14:03
DX: K86.1 Other chronic pancreatitis (principal); F41.9 Anxiety disorder, unspecified; Z79.899 Other long term (current) drug therapy
CPT/HCPCS: 36415; 80053; 80320; 83690; 85025; 96361; 96374; 96375; 96376; 99284; J2270; J2405; J2470; J7030

== ENCOUNTER 2024-06-11 12:03 | Emergency (ER) | payer MEDICAID ==
[~2024-06-11] VITALS: Ht 167.6 cm; Wt 55.0 kg
--- NOTE | 2024-06-11 12:09 | ECG ---
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
--- NOTE | 2024-06-11 12:29 | ED.PDOC ---
HPI Comments 54 y/o M, presents to the ED for CC of chest pain. Patient states, he has been experiencing substernal non-radiating chest pain with associated symptoms of sore throat, cough, and nasal congestion x1day. Patient reports, that he did see his pain management provider for symptoms and was told it was just dysphagia. Patient smokes tobacco, denies ETOH consumption or illicit drug usage. Patient shortness of breath, palpitations, leg swelling, fatigue, nausea, or dizziness. No other symptoms or modifying factors at this time. Chief Complaint: Chest Pain Time Seen by MD: 12:10 Primary Care Provider: JASE Reviewed Notes: Nurses Notes, Medications, Allergies Allergies: Coded Allergies: NO KNOWN ALLERGIES (Unverified , 02/16/24) Home Meds Active Scripts Oxycodone Hcl (OxyCONTIN ER Tablet) 20 Mg Tb, 1 TAB PO BID for 5 Days, #10 TAB Prov:COREY SHEPHERD MD 04/21/24 Acetaminophen (Acetaminophen) 325 Mg Tab, 650 MG PO Q4HR for 30 Days, #360 TAB Prov:EVE MARTÍNEZ 04/21/24 Ibuprofen (Ibuprofen) 800 Mg Tab, 800 MG PO Q8HP PRN for 10 Days, #30 TAB Prov:EVE MARTÍNEZ RESIDENT 04/21/24 Hydrocodone-Acetaminophen (Hydrocodone Bitartrate/AC 5-325 mg) 1 Tab Tab, 1 TAB PO QID PRN, #30 TAB Prov:[place] BOWMAN MD 03/15/24 Oxycodone W/ Acetaminophen (Percocet 5/325MG) 1 Tab Tb, 1 TAB PO QID for 5 Days, #20 TAB Prov:BERENICE MANNING NP 02/18/24 Reported Medications Multiple Vitamin (Multivitamin) 1 Tab Tab, 1 TAB PO DAILY 05/14/24 Folic Acid (Folic Acid) 1 Mg Tab, 1 TAB PO DAILY 03/12/24 Multiple Vitamin (One-Daily Multi-Vitamin) 1 Tab Tab, 1 TAB PO DAILY 03/12/24 Pancreatic Enzymes (Creon) 12,000 Unt Cap, PO 02/17/24 Sucralfate (Sucralfate) 1 Gm Tab, 1 TAB PO QID 02/16/24 Rivaroxaban (Xarelto) 2.5 Mg Tab, PO 02/16/24 Magnesium Oxide (True Magnesium Oxide) 400 Mg Tab, 1 TAB PO DAILY 02/16/24 Ethambutol Hcl (Ethambutol Hcl) 100 Mg Tab, 800 MG PO DAILY 02/16/24 Rifampin (Rifampin) 150 Mg Cap, 150 MG PO DAILY 02/16/24 Azithromycin (Azithromycin) 250 Mg Tab, 500 MG PO DAILY 02/16/24 Information Source: Patient Mode of Arrival: Ambulatory Severity: Moderate Timing: Days Duration: Since onset Prehospital treatment: None Location: Substernal Radiation: No Radiation Onset: At Rest Cardiac Risk Factors: Smoker PE Risk Factors: None History of: None Modifying Factors: Nothing Associated Signs and Symptoms: None Past Medical History PAST MEDICAL HISTORY: Anxiety Surgical History: Denies all surgeries Family History Family History: Unknown Social History Smoker: Cigarettes Alcohol: Sober Drugs: Denies Drug Use Lives In: Home Constitutional: reports: chills, fever; denies: diaphoresis, fatigue, malaise, sweats, weakness, others EENTM: reports: nose congestion; denies: blurred vision, double vision, ear bleeding, ear discharge, ear drainage, ear pain, ear ringing, eye pain, eye redness, hearing loss, mouth pain, mouth swelling, nasal discharge, nose bleeding, nose pain, photophobia, tearing, throat pain, throat swelling, voice changes, others Respiratory: reports: cough; denies: hemoptysis, orthopnea, SOB at rest, shortness of breath, SOB with excertion, stridor, wheezing, others Cardiovascular: reports: chest pain; denies: dizzy spells, diaphoresis, Dyspnea on exertion, edema, irregular heart beat, left arm pain, lightheadedness, palpitations, PND, syncope, others Gastrointestinal: denies: abdomen distended, abdominal pain, blood streaked bowels, constipated, diarrhea, dysphagia, difficulty swallowing, hematemesis, melena, nausea, poor appetite, poor fluid intake, rectal bleeding, rectal pain, vomiting, others Genitourinary: denies: burning, dysuria, flank pain, frequency, hematuria, incontinence, penile discharge, penile sore, pain, testicle pain, testicle swelling, urgency, others Neurological: denies: dizziness, fainting, headache, left sided numbness, left sided weakness, numbness, paresthesia, pre-existing deficit, right sided numbness, right sided weakness, seizure, speech problems, tingling, tremors, weakness, others Musculoskeletal: denies: back pain, gout, joint pain, joint swelling, muscle pain, muscle stiffness, neck pain, others Integumetry: denies: bruises, change in color, change in hair/nails, dryness, laceration, lesions, lumps, rash, wounds, others Allergic/Immunocompromised: denies: Difficulty Healing, Frequent Infections, Hives, Itching, others Hematologic/Lymphatic: denies: anemia, blood clots, easy bleeding, easy bruising, swollen glands, others Endocrine: denies: excessive hunger, excessive sweating, excessive thirst, excessive urination, flushing, intolerance to cold, intolerance to heat, unexplained weight gain, unexplained weight loss, others Psychiatric: denies: anxiety, bipolar disorder, depression, hopeless, panic disorder, schizophrenia, sleepless, suicidal, others All Other Systems: Reviewed and Negative Physical Exam General Appearance: No Apparent Distress, Normal, Other (APPEARS CHROINCALLY UNWELL ) HEENT: Normal ENT Inspection, Pharynx Normal Neck: Full Range of Motion, Non-Tender, Normal, Normal Inspection Respiratory: Chest Non-Tender, No Accessory Muscle Use, No Respiratory Distress, Other (DIMINISHED BREATH SOUNDS) Cardiovascular: No Edema, No Murmur, No Gallop, Normal Peripheral Pulses, Regular Rate/Rhythm Breast Exam: Deferred Gastrointestinal: No Organomegaly, Non Tender, No Pulsatile Mass, Normal Bowel Sounds, Soft Genitalia: Deferred Pelvic: Deferred Rectal: Deferred Extremities: Normal range of motion, Non-tender, No pedal edema Musculoskeletal : Apperance: Normal Neurologic: Alert, Normal Affect, Normal Mood Cerebellar Function: Normal Reflexes: Normal Skin: Dry, Normal Color, Warm Lymphatic: No Adenopathy Was a procedure done? Was a procedure done?: No CP Differential Dx Differential Diagnosis: A-fib, A-Flutter, Angina, Anxiety / Panic Attack, Hyperthyroidism, Hyperventilation, Pulmonary Embolus, PVC's, Renal Failure, Sinus Tachycardia, V-Fib, V-Tach Differential Diagnosis: CHF Differential Diagnosis: Aortic dissection, Chest Wall Pain, Cholelithiasis, Costochondritis, Esophageal reflux/spasm, Gastritis, Myocardial Infarction X-Ray, Labs, Meds, VS Vital Signs Date Time Temp Pulse Resp B/P (MAP) Pulse Ox O2 Delivery O2 Flow Rate FiO2 06/11/24 13:02 92 06/11/24 12:08 107 06/11/24 12:05 98.1 102 18 100/77 (85) 97 98.1 Lab Test 06/11/24 13:52 06/11/24 12:59 Range/Units Troponin I High Sensitivity < 3 L < 3 L </=54 ng/L White Blood Count 6.5 4.4-10.8 10^3/uL Red Blood Count 4.43 L 4.5-5.90 10^6/uL Hemoglobin 14.9 13.5-17.5 g/dL Hematocrit 43.4 41.0-53.0 % Mean Corpuscular Volume 97.9 80.0-100.0 fL Mean Corpuscular Hemoglobin 33.5 H 28.0-32.0 pg Mean Corpuscular Hemoglobin Concent 34.2 32.0-36.0 g/dL Red Cell Distribution Width 13.7 11.8-14.3 % Platelet Count 292 140-450 10^3/uL Mean Platelet Volume 7.3 6.9-10.8 fL Neutrophils (%) (Auto) 50.0 37.0-80.0 % Lymphocytes (%) (Auto) 38.1 10.0-50.0 % Monocytes (%) (Auto) 8.8 0.0-12.0 % Eosinophils (%) (Auto) 2.5 0.0-7.0 % Basophils (%) (Auto) 0.6 0.0-2.0 % Neutrophils # (Auto) 3.3 1.6-8.6 10 ^3/uL Lymphocytes # (Auto) 2.5 0.4-5.4 10 ^3/uL Monocytes # (Auto) 0.6 0-1.3 10 ^3/uL Eosinophils # (Auto) 0.2 0-0.8 10 ^3/uL Basophils # (Auto) 0 0-0.2 10 ^3/uL Nucleated Red Blood Cells 0.2 % D-Dimer, Quantitative 0.47 0.0-0.49 mg/L FEU Sodium Level 134 L 136-145 mmol/L Potassium Level 4.3 3.5-5.1 mmol/L Chloride Level 100 98-107 mmol/L Carbon Dioxide Level 27 20-31 mmol/L Anion Gap 7 5-15 Blood Urea Nitrogen 9 9-23 mg/dL Creatinine 0.67 L 0.700-1.30 mg/dL Glomerular Filtration Rate Calc 110 >90 mL/min BUN/Creatinine Ratio 13.4 10.0-20.0 Serum Glucose 105 74-106 mg/dL Calcium Level 10.2 8.7-10.4 mg/dL Magnesium Level 2.2 1.6-2.6 mg/dL Total Bilirubin 0.3 0.2-1.0 mg/dL Aspartate Amino Transferase (AST) 18 13-40 U/L Alanine Aminotransferase (ALT) 18 7-40 U/L Alkaline Phosphatase 101 46-116 U/L B-Type Natriuretic Peptide Pending Total Protein 7.7 5.7-8.2 g/dL Albumin 4.8 3.2-4.8 g/dL X-Ray, Labs, Meds, VS Comment This 54-year-old male presents secondary to chest pain and shortness of breath. The patient is, however, was observed being very active throughout the hospital and the lobby. The patient had a normal workup. He will be discharged home. He is asked to follow up with PCP in next 1-2 days return to the ER for new/worse/worsening symptoms. Please note the patient became increasingly aggressive asking for narcotic pain medication for his cough and chest discomfort. The patient were, however, is completely benign. Patient was observed to ambulate throughout the ER without difficulty. At no time did he appear to be in distress Time of 1ST Reevaluation: 12:40 Reevaluation 1ST: Unchanged Time of 2ND Reevaluation: 15:16 Reevaluation 2ND: Improved Patient Education/Counseling: Diagnosis, Treatment Family Education/Counseling: No Family Present Departure 1 Departure Time of Disposition: 15:18 Impression: Primary Impression: Chest pain Additional Impression: Cough Disposition: 01 HOME / SELF CARE / HOMELESS Condition: Good Discharged With: Self Critical Care Note Critical Care Time?: No Stability Stability form required: No Heart Score Heart Score: Heart Score Response (Comments) Value History Slightly Suspicious 0 EKG Normal 0 Age N/A 0 Risk Factors 1 or 2 risk factors 1 Troponin Normal limit 0 Total 1 I personally scribed for ARTHUR REN MD ([email or web address]) on 06/11/24 at 12:29. Electronically submitted by Lorri Trujillo ([email or web address]). I personally scribed for ARTHUR REN MD ([email or web address]) on 06/11/24 at 12:33. Electronically submitted by Lorri Trujillo ([email or web address]). ARTHUR REN MD Jun 11, 2024 12:29
--- NOTE | 2024-06-11 14:19 | DVH ---
CHEST RADIOGRAPH Indication: cough sob Technique: Single frontal view of the chest was obtained COMPARISON: XY CHEST PORTABLE on DOS: 02/17/24, XY CHEST PORTABLE on DOS: 02/16/24 FINDINGS: Lines and Tubes: None Lungs: Biapical scarring. Pleura: No effusion. No pneumothorax. Cardiomediastinal contours: Unremarkable Bones: Unremarkable IMPRESSION: Biapical scarring.
[2024-06-11 14:47] LABS: Basophils # (auto) 0 10 ^3/uL (0-0.2); Basophils % (auto) 0.6 % (0.0-2.0); Eosinophils # (auto) 0.2 10 ^3/uL (0-0.8); Eosinophils % (auto) 2.5 % (0.0-7.0); Hematocrit 43.4 % (41.0-53.0); Hemoglobin 14.9 g/dL (13.5-17.5); Lymphocytes # (auto) 2.5 10 ^3/uL (0.4-5.4); Lymphocytes % (auto) 38.1 % (10.0-50.0); Mean Corpuscular Hemoglobin 33.5 pg (28.0-32.0); Mean Corpuscular Hgb Conc. 34.2 g/dL (32.0-36.0); Mean Corpuscular Volume 97.9 fL (80.0-100.0); Monocytes # (auto) 0.6 10 ^3/uL (0-1.3); Monocytes % (auto) 8.8 % (0.0-12.0); Neutrophils # (auto) 3.3 10 ^3/uL (1.6-8.6); Nucleated Red Blood Cells % 0.2 %; Platelet Count (auto) 292 10^3/uL (140-450); Red Blood Cells 4.43 10^6/uL (4.5-5.90); Red Cell Distribution Width 13.7 % (11.8-14.3); White Blood Cell 6.5 10^3/uL (4.4-10.8)
[2024-06-11 14:53] LABS: Alanine Aminotransferase 18 U/L (7-40); Albumin 4.8 g/dL (3.2-4.8); Alkaline Phosphatase 101 U/L (46-116); Anion Gap 7 (5-15); Aspartate Aminotransferase 18 U/L (13-40); BUN/Creatinine Ratio 13.4 (10.0-20.0); Blood Urea Nitrogen 9 mg/dL (9-23); Calcium 10.2 mg/dL (8.7-10.4); Carbon Dioxide 27 mmol/L (20-31); Chloride 100 mmol/L (98-107); Glucose 105 mg/dL (74-106); Magnesium 2.2 mg/dL (1.6-2.6); Potassium 4.3 mmol/L (3.5-5.1); Total Protein 7.7 g/dL (5.7-8.2)
[2024-06-11 14:54] LABS: Bilirubin, Total 0.3 mg/dL (0.2-1.0); Sodium 134 mmol/L (136-145)
[2024-06-11 15:00] VITALS: BP 129/66; PULSE 111; RESP 20; O2SAT 95
[2024-06-11 15:20] VITALS: TEMP 98.7
[2024-06-11] MEDS: ACETAMINOPHEN 325 MG TAB PO ONE (15:20)
--- NOTE | 2024-06-12 07:10 | ECG ---
[facility] Test Date: 2024-06-11 Test Time: 13:02:10 Pat Name: BC STERLING Department: ED Room: Gender: M Bath Tester: BORIS : 1970 Requested By: CHRIS BOURNE Order Number: [id number] Reading MD: Jonatan Ornelas Measurements Intervals [place] Rate: 92 P: 90 WI: 137 QRS: 79 QRSD: 95 T: 80 QT: 379 QTc: 469 Interpretive Statements Sinus rhythm Right atrial enlargement Consider right ventricular hypertrophy Electronically Signed On 06-12-2024 11:56:50 PDT by Jonatan Ornelas Please click the below link to view image of tracing.
[2024-06-12] MEDS ORDERED: IBUP-1455 PO (18:04)
== END 2024-06-11 15:26 | disposition home or self-care (01) ==
LOC: ER 12:03
DX: R07.89 Other chest pain (principal); F17.210 Nicotine dependence, cigarettes, uncomplicated; Z79.899 Other long term (current) drug therapy
CPT/HCPCS: 36415; 71045; 80053; 83735; 83880; 84484; 85025; 85379; 93005

== ENCOUNTER 2024-06-12 14:59 | Emergency (ER) | payer MEDICAID ==
[~2024-06-12] VITALS: Ht 167.6 cm; Wt 52.1 kg
--- NOTE | 2024-06-12 16:38 | DVH ---
CLINICAL INDICATION: Dysphagia TECHNIQUE: 2 radiographic views of the cervical spine were obtained. Comparison: None FINDINGS/IMPRESSION: There is no evidence of acute fracture or dislocation. Degenerative disc changes are noted at C6-7. No large anterior osteophytes are noted in the cervical vertebra. The visualized joint space is well maintained. The alignment is anatomical. There is no radiopaque foreign body. HS:Y
--- NOTE | 2024-06-12 16:47 | ED.PDOC ---
Eye-HPI HPI Comments 54year old male presents to ED for chief complaint sore throat and dysphagia. Pt states he is unable to swallow or take meds. Pt was seen at [facility] ER yesterday, 06/11/2024, for chest pain and was discharged home after cardiac workup. Pt states they did not evaluate his throat. VSS. Chief Complaint: Sore Throat Time Seen by MD: 16:00 Primary Care Provider: MARK Reviewed Notes: Nurses Notes, Medications, Allergies Allergies: Coded Allergies: NO KNOWN ALLERGIES (Unverified , 02/16/24) Home Meds Active Scripts Oxycodone Hcl (OxyCONTIN ER Tablet) 20 Mg Tb, 1 TAB PO BID for 5 Days, #10 TAB Prov:COREY SHEPHERD MD 04/21/24 Acetaminophen (Acetaminophen) 325 Mg Tab, 650 MG PO Q4HR for 30 Days, #360 TAB Prov:EVE MARTÍNEZ RESIDENT 04/21/24 Ibuprofen (Ibuprofen) 800 Mg Tab, 800 MG PO Q8HP PRN for 10 Days, #30 TAB Prov:EVE MARTÍNEZ RESIDENT 04/21/24 Hydrocodone-Acetaminophen (Hydrocodone Bitartrate/AC 5-325 mg) 1 Tab Tab, 1 TAB PO QID PRN, #30 TAB Prov:[place] BOWMAN MD 03/15/24 Oxycodone W/ Acetaminophen (Percocet 5/325MG) 1 Tab Tb, 1 TAB PO QID for 5 Days, #20 TAB Prov:BERENICE MANNING NP 02/18/24 Reported Medications Multiple Vitamin (Multivitamin) 1 Tab Tab, 1 TAB PO DAILY 05/14/24 Folic Acid (Folic Acid) 1 Mg Tab, 1 TAB PO DAILY 03/12/24 Multiple Vitamin (One-Daily Multi-Vitamin) 1 Tab Tab, 1 TAB PO DAILY 03/12/24 Pancreatic Enzymes (Creon) 12,000 Unt Cap, PO 02/17/24 Sucralfate (Sucralfate) 1 Gm Tab, 1 TAB PO QID 02/16/24 Rivaroxaban (Xarelto) 2.5 Mg Tab, PO 02/16/24 Magnesium Oxide (True Magnesium Oxide) 400 Mg Tab, 1 TAB PO DAILY 02/16/24 Ethambutol Hcl (Ethambutol Hcl) 100 Mg Tab, 800 MG PO DAILY 02/16/24 Rifampin (Rifampin) 150 Mg Cap, 150 MG PO DAILY 02/16/24 Azithromycin (Azithromycin) 250 Mg Tab, 500 MG PO DAILY 02/16/24 Information Source: Patient Mode of Arrival: Ambulatory Timing: Days Duration: Since onset Prehospital treatment: None Quality: Pain Oropharynx: Red Onset: Spontaneous Throat Exposed to: None History of: None Modifying factors: Nothing Associated signs and symptoms: Sore Throat Past Medical History PAST MEDICAL HISTORY: Anxiety Surgical History: Denies all surgeries Family History Family History: Unknown Social History Smoker: Cigarettes Alcohol: Sober Drugs: Denies Drug Use Lives In: Home Constitutional: denies: chills, diaphoresis, fatigue, fever, malaise, sweats, weakness, others EENTM: reports: throat pain, others ( dysphagia); denies: blurred vision, double vision, ear bleeding, ear discharge, ear drainage, ear pain, ear ringing, eye pain, eye redness, hearing loss, mouth pain, mouth swelling, nasal discharge, nose bleeding, nose congestion, nose pain, photophobia, tearing, throat swelling, voice changes Respiratory: denies: cough, hemoptysis, orthopnea, SOB at rest, shortness of breath, SOB with excertion, stridor, wheezing, others Cardiovascular: denies: chest pain, dizzy spells, diaphoresis, Dyspnea on exertion, edema, irregular heart beat, left arm pain, lightheadedness, palpitations, PND, syncope, others Gastrointestinal: reports: dysphagia; denies: abdomen distended, abdominal pain, blood streaked bowels, constipated, diarrhea, difficulty swallowing, hematemesis, melena, nausea, poor appetite, poor fluid intake, rectal bleeding, rectal pain, vomiting, others Genitourinary: denies: burning, dysuria, flank pain, frequency, hematuria, incontinence, penile discharge, penile sore, pain, testicle pain, testicle swelling, urgency, others Neurological: denies: dizziness, fainting, headache, left sided numbness, left sided weakness, numbness, paresthesia, pre-existing deficit, right sided numbness, right sided weakness, seizure, speech problems, tingling, tremors, weakness, others Musculoskeletal: denies: back pain, gout, joint pain, joint swelling, muscle pain, muscle stiffness, neck pain, others Integumetry: denies: bruises, change in color, change in hair/nails, dryness, laceration, lesions, lumps, rash, wounds, others Allergic/Immunocompromised: denies: Difficulty Healing, Frequent Infections, Hives, Itching, others Hematologic/Lymphatic: denies: anemia, blood clots, easy bleeding, easy bruising, swollen glands, others Endocrine: denies: excessive hunger, excessive sweating, excessive thirst, excessive urination, flushing, intolerance to cold, intolerance to heat, unexplained weight gain, unexplained weight loss, others Psychiatric: denies: anxiety, bipolar disorder, depression, hopeless, panic disorder, schizophrenia, sleepless, suicidal, others All Other Systems: Reviewed and Negative Physical Exam General Appearance: Moderate Distress ( [id number] distress due to swelling concerns.), Normal HEENT: TMs Normal, Other ( Relatively unremarkable oropharyngeal evaluation. Possible mild erythema without edema. Airway looks patent. No mass or foreign body noted.) Neck: Full Range of Motion, Non-Tender, Normal, Normal Inspection Respiratory: Chest Non-Tender, Lungs Clear, No Accessory Muscle Use, No Respiratory Distress, Normal Breath Sounds Cardiovascular: No Edema, No JVD, No Murmur, No Gallop, Normal Peripheral Pulses, Regular Rate/Rhythm Breast Exam: Deferred Gastrointestinal: No Organomegaly, Non Tender, No Pulsatile Mass, Normal Bowel Sounds, Soft Genitalia: Deferred Pelvic: Deferred Rectal: Deferred Extremities: No calf tenderness, Normal capillary refill, Normal inspection, Normal range of motion, Non-tender, No pedal edema Musculoskeletal : Apperance: Normal Neurologic: Alert, No Motor Deficits, Normal Affect, Normal Mood, No Sensory Deficits Cerebellar Function: Normal Reflexes: Normal Skin: Dry, Normal Color, Warm Lymphatic: No Adenopathy Was a procedure done? Was a procedure done?: No EENT DIFF Eye: N/A Ear: N/A Nose: N/A Mouth: N/A Sore Throat: Pharyngitis, URI, Other ( Dysphagia) X-Ray, Labs, Meds, VS Vital Signs Date Time Temp Pulse Resp B/P (MAP) Pulse Ox O2 Delivery O2 Flow Rate FiO2 06/12/24 17:16 Room Air* 0 21 06/12/24 17:14 97.9 101 16 94/48 (63) 95 97.9 06/12/24 16:15 97.5 97 16 90/55 (67) 95 97.5 Lab Test 06/12/24 16:52 Range/Units Group A Streptococcus Rapid Negative Current Medications Medications (Trade) Dose Ordered Sig/Desean Route Start Time Stop Time Status Last Admin Dexamethasone Sodium Phosphate (Decadron Injection) 10 mg ONCE ONCE IM 06/12/24 16:00 06/12/24 16:01 DC 06/12/24 16:51 Glucagon (Glucagen) 1 mg ONCE ONCE IM 06/12/24 16:00 06/12/24 16:01 DC 06/12/24 16:52 [place] [id number] Ph: [phone] DIAGNOSTIC IMAGING Diagnostic Imaging Report : [id number] Signed PATIENT: BC STERLING ACCT: [id number] UNIT: [id number] : 1970 LOC: ER ROOM / BED: / AGE / SEX: 54 / M ADM STATUS: REG ER SERVICE [id number] ORDERING PHYSICIAN: LIDIA GRAY PAC PROCEDURE(s): NECK - NECK FOR SOFT TISSUE REASON: Dysphagia ORDER NUMBER(s): [id number], ACCESSION NUMBER(s): [id number] CLINICAL INDICATION: Dysphagia TECHNIQUE: 2 radiographic views of the cervical spine were obtained. Comparison: None FINDINGS/IMPRESSION: There is no evidence of acute fracture or dislocation. Degenerative disc changes are noted at C6-7. No large anterior osteophytes are noted in the cervical vertebra. The visualized joint space is well maintained. The alignment is anatomical. There is no radiopaque foreign body. HS:Y ATED BY: PATRICIA SALES Jr., DO DICTATED DATE/TIME: 06/12/241634 SIGNED BY: PATRICIA SALES Jr., SIGNED DATE/TIME: 06/12/241634 CC: X-Ray, Labs, Meds, VS Comment All studies performed in the ED were evaluated by me personally. Swabs studies were unremarkable for any streptococcal concerns. Imaging studies showed a patent oropharyngeal anatomy. Advised patient follow up with primary care provider for continued conversation is related to is swallowing concerns. Time of 1ST Reevaluation: 18:02 Reevaluation 1ST: Improved Consultation: PCP, ENT Patient Education/Counseling: Diagnosis, Treatment Family Education/Counseling: Diagnosis, Treatment, No Family Present Departure 1 Departure Time of Disposition: 18:02 Impression: Primary Impression: Dysphagia Disposition: 01 HOME / SELF CARE / HOMELESS Condition: Stable Additional Instructions: Advised patient utilize ibuprofen as directed and if his symptoms continue, patient will need to follow up with primary care provider for ENT referral and evaluation. e-Prescriptions Ibuprofen Micronized (Ibuprofen) 800 Mg Tab 800 MG PO Q8HP PRN, #20 TAB Prov: LIDIA GRAY PAC 06/12/24 Discharged With: Self, Friend Critical Care Note Critical Care Time?: No Stability Stability form required: No Heart Score Heart Score: Heart Score Response (Comments) Value History N/A 0 EKG N/A 0 Age N/A 0 Risk Factors N/A 0 Troponin N/A 0 Total 0 I personally scribed for LIDIA GRAY PAC ([email or web address]) on 06/12/24 at 16:47. Electronically submitted by Amairani Gutierrez ([employer]). I personally scribed for LIDIA GRAY PAC ([email or web address]) on 06/12/24 at 16:48. Electronically submitted by Amairani Gutierrez ([employer]). LIDIA GRAY PAC Jun 12, 2024 16:47
[2024-06-12] MEDS: STERILE WATER 10 ML ONE (16:48)
[2024-06-12] MEDS: DexAMETHasone SOD PHOS 10MG/1ML VIAL INJ IM ONE (16:51)
[2024-06-12] MEDS: GLUCAGON EMERG KIT 1mg/1ml IM ONE (16:52)
[2024-06-12 17:52] LABS: Rapid Strep A Screen-Throat Negative
[2024-06-12] MEDS ORDERED: IBUP-1455 PO (18:04)
[2024-06-12 18:11] VITALS: BP 133/76; PULSE 100; RESP 18; TEMP 98.3; O2SAT 95
== END 2024-06-12 18:15 | disposition home or self-care (01) ==
LOC: ER 15:03
DX: R13.10 Dysphagia, unspecified (principal); F17.210 Nicotine dependence, cigarettes, uncomplicated; Z79.1 Long term (current) use of non-steroidal anti-inflammatories (NSAID); Z79.2 Long term (current) use of antibiotics; Z79.899 Other long term (current) drug therapy
CPT/HCPCS: 70360; 87070; 87880; 96372; 99284; J1100; J1610

== ENCOUNTER 2024-06-16 11:51 | Emergency (ER) | payer MEDICAID ==
[~2024-06-16] VITALS: Ht 152.4 cm; Wt 80.0 kg
[~2024-06-16 11:51] MED LIST changes: +IBUP-1455 PO
--- NOTE | 2024-06-16 12:18 | ED.PDOC ---
History of Present Illness HPI Comments 54 year old male presents to the ED with a chief complaint of sore throat onset 4 days. Patient states he was seen in this ED on 06/11/24 for chest pain, workup was normal and patient was discharged. Returned to ED on 06/12/24, was diagnosed with Dysphagia, discharged home. Returned to ED today due to symptoms not improving, states he is not able to eat. PMHx anxiety. Denies chest pain, nausea, vomiting, diarrhea, shortness of breath, headache, dizziness. No other symptoms or modifying factors present at this time. Chief Complaint: Sore Throat Time Seen by MD: 12:05 Primary Care Provider: MARK Reviewed Notes: Medications, Allergies Allergies: Coded Allergies: NO KNOWN ALLERGIES (Unverified , 02/16/24) Home Meds Active Scripts Ibuprofen Micronized (Ibuprofen) 800 Mg Tab, 800 MG PO Q8HP PRN, #20 TAB Prov:LIDIA GRAY PAC 06/12/24 Oxycodone Hcl (OxyCONTIN ER Tablet) 20 Mg Tb, 1 TAB PO BID for 5 Days, #10 TAB Prov:COREY SHEPHERD MD 04/21/24 Acetaminophen (Acetaminophen) 325 Mg Tab, 650 MG PO Q4HR for 30 Days, #360 TAB Prov:EVE MARTÍNEZ RESIDENT 04/21/24 Ibuprofen (Ibuprofen) 800 Mg Tab, 800 MG PO Q8HP PRN for 10 Days, #30 TAB Prov:EVE MARTÍNEZ RESIDENT 04/21/24 Hydrocodone-Acetaminophen (Hydrocodone Bitartrate/AC 5-325 mg) 1 Tab Tab, 1 TAB PO QID PRN, #30 TAB Prov:[place] BOWMAN MD 03/15/24 Oxycodone W/ Acetaminophen (Percocet 5/325MG) 1 Tab Tb, 1 TAB PO QID for 5 Days, #20 TAB Prov:BERENICE MANNING NP 02/18/24 Reported Medications Multiple Vitamin (Multivitamin) 1 Tab Tab, 1 TAB PO DAILY 05/14/24 Folic Acid (Folic Acid) 1 Mg Tab, 1 TAB PO DAILY 03/12/24 Multiple Vitamin (One-Daily Multi-Vitamin) 1 Tab Tab, 1 TAB PO DAILY 03/12/24 Pancreatic Enzymes (Creon) 12,000 Unt Cap, PO 02/17/24 Sucralfate (Sucralfate) 1 Gm Tab, 1 TAB PO QID 02/16/24 Rivaroxaban (Xarelto) 2.5 Mg Tab, PO 02/16/24 Magnesium Oxide (True Magnesium Oxide) 400 Mg Tab, 1 TAB PO DAILY 02/16/24 Ethambutol Hcl (Ethambutol Hcl) 100 Mg Tab, 800 MG PO DAILY 02/16/24 Rifampin (Rifampin) 150 Mg Cap, 150 MG PO DAILY 02/16/24 Azithromycin (Azithromycin) 250 Mg Tab, 500 MG PO DAILY 02/16/24 Information Source: Patient Mode of Arrival: Ambulatory Severity: Moderate Timing: Days Duration: Since onset Prehospital treatment: None Past Medical History PAST MEDICAL HISTORY: Anxiety Surgical History: Denies all surgeries Family History Family History: Unknown Social History Smoker: Cigarettes Alcohol: Sober Drugs: Denies Drug Use Lives In: Home Constitutional: denies: chills, diaphoresis, fatigue, fever, malaise, sweats, weakness, others EENTM: reports: throat pain, others (Difficulty swallowing); denies: blurred vision, double vision, ear bleeding, ear discharge, ear drainage, ear pain, ear ringing, eye pain, eye redness, hearing loss, mouth pain, mouth swelling, nasal discharge, nose bleeding, nose congestion, nose pain, photophobia, tearing, throat swelling, voice changes Respiratory: denies: cough, hemoptysis, orthopnea, SOB at rest, shortness of breath, SOB with excertion, stridor, wheezing, others Cardiovascular: denies: chest pain, dizzy spells, diaphoresis, Dyspnea on exertion, edema, irregular heart beat, left arm pain, lightheadedness, palpitations, PND, syncope, others Gastrointestinal: denies: abdomen distended, abdominal pain, blood streaked bowels, constipated, diarrhea, dysphagia, difficulty swallowing, hematemesis, melena, nausea, poor appetite, poor fluid intake, rectal bleeding, rectal pain, vomiting, others Genitourinary: denies: burning, dysuria, flank pain, frequency, hematuria, incontinence, penile discharge, penile sore, pain, testicle pain, testicle swelling, urgency, others Neurological: denies: dizziness, fainting, headache, left sided numbness, left sided weakness, numbness, paresthesia, pre-existing deficit, right sided numbness, right sided weakness, seizure, speech problems, tingling, tremors, weakness, others Musculoskeletal: denies: back pain, gout, joint pain, joint swelling, muscle pain, muscle stiffness, neck pain, others Integumetry: denies: bruises, change in color, change in hair/nails, dryness, laceration, lesions, lumps, rash, wounds, others Allergic/Immunocompromised: denies: Difficulty Healing, Frequent Infections, Hives, Itching, others Hematologic/Lymphatic: denies: anemia, blood clots, easy bleeding, easy bruising, swollen glands, others Endocrine: denies: excessive hunger, excessive sweating, excessive thirst, excessive urination, flushing, intolerance to cold, intolerance to heat, unexpl ained weight gain, unexplained weight loss, others Psychiatric: denies: anxiety, bipolar disorder, depression, hopeless, panic disorder, schizophrenia, sleepless, suicidal, others All Other Systems: Reviewed and Negative Physical Exam General Appearance: No Apparent Distress, Normal HEENT: Normal ENT Inspection, Pharynx Normal, TMs Normal Neck: Full Range of Motion, Non-Tender, Normal, Normal Inspection Respiratory: Chest Non-Tender, Lungs Clear, No Accessory Muscle Use, No Respiratory Distress, Normal Breath Sounds Cardiovascular: No Edema, No JVD, No Murmur, No Gallop, Normal Peripheral Pulses, Regular Rate/Rhythm Breast Exam: Deferred Gastrointestinal: No Organomegaly, Non Tender, No Pulsatile Mass, Normal Bowel Sounds, Soft Genitalia: Deferred Pelvic: Deferred Rectal: Deferred Extremities: No calf tenderness, Normal capillary refill, Normal inspection, Normal range of motion, Non-tender, No pedal edema Musculoskeletal : Apperance: Normal Neurologic: Alert, senior clinical study manager II-XII nml as Tested, No Motor Deficits, Normal Affect, Normal Mood, No Sensory Deficits Cerebellar Function: Normal Reflexes: Normal Skin: Dry, Normal Color, Warm Lymphatic: No Adenopathy Was a procedure done? Was a procedure done?: No Differential Dx Considerations may include: Pharyngitis, viral syndrome X-Ray, Labs, Meds, VS Vital Signs Date Time Temp Pulse Resp B/P (MAP) Pulse Ox O2 Delivery O2 Flow Rate FiO2 06/16/24 12:05 98.5 87 17 121/94 (103) 99 98.5 Time of 1ST Reevaluation: 12:35 Reevaluation 1ST: Unchanged Patient Education/Counseling: Diagnosis, Treatment, Prognosis Family Education/Counseling: No Family Present Departure 1 Departure Time of Disposition: 15:53 (Patient likely with pharyngitis. We will discharge with outpatient follow up) Impression: Primary Impression: Pharyngitis Qualified Codes: J02.9 - Acute pharyngitis, unspecified Disposition: HOME / SELF CARE / HOMELESS Condition: Stable Additional Instructions: You have a sore throat. You were prescribed antibiotics. Please take as directed. e-Prescriptions Amoxicillin & Pot Clavulanate (AUGMENTIN TABLET) 875 Mg Tb 875 MG PO BID for 5 Days, #10 TAB Prov: IDA PAIGE MD 06/16/24 Discharged With: Self Critical Care Note Critical Care Time?: No Stability Stability form required: No I personally scribed for IDA PAIGE MD ([email or web address]) on 06/16/24 at 12:18. Electronically submitted by Juhi Ortega ([email or web address]). IDA PAIGE MD Jun 16, 2024 12:18
[2024-06-16] MEDS ORDERED: AUG875T PO (15:56)
[2024-06-16] MEDS: DexAMETHasone SOD PHOS 10MG/1ML VIAL INJ PO ONE (16:39)
[2024-06-16] MEDS: AMOXICILLIN/CLAVUL 875 MG TAB PO ONE (16:39)
[2024-06-16 16:44] VITALS: BP 112/70; PULSE 100; RESP 17; TEMP 97.7; O2SAT 96
== END 2024-06-16 16:49 | disposition home or self-care (01) ==
LOC: ER 11:51
DX: J02.9 Acute pharyngitis, unspecified (principal); F41.9 Anxiety disorder, unspecified; F17.210 Nicotine dependence, cigarettes, uncomplicated; Z79.899 Other long term (current) drug therapy
CPT/HCPCS: 99283; J1100

== ENCOUNTER 2024-07-08 11:35 | Inpatient (IN) | payer MEDICAID ==
[~2024-07-08] VITALS: Ht 167.6 cm; Wt 49.1 kg
[~2024-07-08 11:35] MED LIST changes: +AUG875T PO
[2024-07-08 12:06] VITALS: O2SAT 98
[2024-07-08] MEDS ORDERED: VANCOMYCIN PER PHARMACY 0 MG IV SCH (12:45)
[2024-07-08] MEDS: LACTATED RINGER'S 1,900 ML IV ONE (12:54)
[2024-07-08 13:53] LABS: Basophils # (auto) 0 10 ^3/uL (0-0.2); Basophils % (auto) 0.5 % (0.0-2.0); Eosinophils # (auto) 0.1 10 ^3/uL (0-0.8); Eosinophils % (auto) 0.7 % (0.0-7.0); Hematocrit 40.4 % (41.0-53.0); Hemoglobin 13.8 g/dL (13.5-17.5); Lymphocytes # (auto) 1.5 10 ^3/uL (0.4-5.4); Lymphocytes % (auto) 20.6 % (10.0-50.0); Mean Corpuscular Hemoglobin 32.8 pg (28.0-32.0); Mean Corpuscular Hgb Conc. 34.2 g/dL (32.0-36.0); Mean Corpuscular Volume 95.8 fL (80.0-100.0); Monocytes # (auto) 0.6 10 ^3/uL (0-1.3); Monocytes % (auto) 8.2 % (0.0-12.0); Platelet Count (auto) 379 10^3/uL (140-450); Red Blood Cells 4.22 10^6/uL (4.5-5.90); Red Cell Distribution Width 13.5 % (11.8-14.3); White Blood Cell 7.1 10^3/uL (4.4-10.8)
--- NOTE | 2024-07-08 13:57 | DVH ---
EXAM: XY CHEST PORTABLE Indication: sepsis Technique: Single frontal view of the chest was obtained Comparison: XY CHEST PORTABLE on DOS: 06/11/24, XY CHEST PORTABLE on DOS: 02/17/24, XY CHEST PORTABLE o n DOS: 02/16/24 FINDINGS: Lines and Tubes: None Lungs: Mild multifocal consolidative opacities. Pleura: No effusion. No pneumothorax. Cardiomediastinal contours: Unremarkable Bones: No acute osseous abnormality. IMPRESSION: Mild multifocal nodular consolidative opacities.
--- NOTE | 2024-07-08 14:08 | DVH ---
CT ABDOMEN AND PELVIS WITHOUT CONTRAST CLINICAL HISTORY: pancreatitis, r/o abscess TECHNIQUE: Multiple contiguous axial images of the abdomen and pelvis without intravenous contrast. T he images were reformatted degenerate coronal and sagittal reconstructions. All CT scans at this medical facility are performed using dose modulation techniques as appropriate t o a performed exam including the following:Automated exposure control was utilized; adjustment of the MA and/or KV according to patient size; and use of iterative reconstruction technique. Radiation Dose Information: CT Dose: CTDI volume is 5.07 mGy. Dose-length product is 268.58 mGy*cm Comparison: CT CT AB PEL WO CON-NO ORAL OR IV on DOS: 05/14/24, CT CT AB PEL WO CON-NO ORAL OR IV on D OS: 04/19/24 FINDINGS: Evaluation of the abdomen and pelvis is limited without intravenous contrast. Again seen are coarse calcifications in the pancreas with dilated pancreatic duct. There is a stable 2.3 cm cystic lesion in the head of the pancreas. The liver, gallbladder, kidneys, adrenal glands, and spleen appear within normal limits. There is no free fluid or free air. The stomach grossly appears unremarkable. The small and large bowel loops demonstrate normal caliber and distribution. There is moderate amount of stool in the colon. The appendix is not seen in the [facility] lower quadrant abdomen. There are no secondary signs of acute appendicitis. There are calcified atherosclerotic changes in the abdominal aorta. The IVC appears within normal li mits. The bladder appears unremarkable for the degree of distention. Pelvic organ appears within normal sprague its. There is no gross evidence of a pelvic mass. There is no free fluid collection. Lung bases are clear. There is no acute osseous abnormality. IMPRESSION: 1. There is no acute process in the abdomen and pelvis. 2. Redemonstrated are changes of chronic pancreatitis with dilated pancreatic duct. There is a stable cystic lesion in the head of the pancreas. 3. Moderate amount of stool in the colon. HS:Y
[2024-07-08 14:12] LABS: Alanine Aminotransferase 9 U/L (7-40); Albumin 3.9 g/dL (3.2-4.8); Alkaline Phosphatase 102 U/L (46-116); Anion Gap 7 (5-15); Aspartate Aminotransferase 10 U/L (13-40); BUN/Creatinine Ratio 11.9 (10.0-20.0); Bilirubin, Total 0.3 mg/dL (0.2-1.0); Blood Urea Nitrogen 7 mg/dL (9-23); Calcium 9.7 mg/dL (8.7-10.4); Carbon Dioxide 25 mmol/L (20-31); Chloride 98 mmol/L (98-107); Glucose 125 mg/dL (74-106); Lipase 56 U/L (12-53); Sodium 130 mmol/L (136-145); Total Protein 6.7 g/dL (5.7-8.2)
[2024-07-08 14:13] LABS: Lactic Acid w/Reflex 2.1 mmol/L (0.4-2.0)
[2024-07-08] MEDS: VANCOMYCIN 750MG KIT 100 ML IV ONE (15:23)
[2024-07-08] MEDS: PIPERACILLIN-TAZO 4.5GM 100 ML IV SCH ×2 (15:42→22:40)
--- NOTE | 2024-07-08 15:54 | ED.PDOC ---
History of Present Illness HPI Comments 54M presents to the ER via EMS w/ prior hx of anxiety which may be associated to the c/c of Syncope. Pt reports on recently leaving [facility] yesterday after being admitted for gallstones. Pt reports on having a syncopal episode due from his BP being low. Pt notes that he did take his pain meds this morning at 0400 and felt "disoriented" Social Hx of tobacco use, but denies alcohol and substance use. Denies chills, fever, N/V/D, SOB, CP No other associated symptoms, modifiers, recent injuries or sick contacts present at this time. Chief Complaint: Syncope Time Seen by MD: 12:55 Primary Care Provider: MARK Reviewed Notes: Nurses Notes, Process Development Engineer Notes, Medications, Allergies Allergies: Coded Allergies: NO KNOWN ALLERGIES (Unverified , 02/16/24) Home Meds Active Scripts Amoxicillin & Pot Clavulanate (AUGMENTIN TABLET) 875 Mg Tb, 875 MG PO BID for 5 Days, #10 TAB Prov:IDA PAIGE MD 06/16/24 Ibuprofen Micronized (Ibuprofen) 800 Mg Tab, 800 MG PO Q8HP PRN, #20 TAB Prov:LIDIA GRAY PAC 06/12/24 Oxycodone Hcl (OxyCONTIN ER Tablet) 20 Mg Tb, 1 TAB PO BID for 5 Days, #10 TAB Prov:COREY SHEPHERD MD 04/21/24 Acetaminophen (Acetaminophen) 325 Mg Tab, 650 MG PO Q4HR for 30 Days, #360 TAB Prov:EVE MARTÍNEZ RESIDENT 04/21/24 Ibuprofen (Ibuprofen) 800 Mg Tab, 800 MG PO Q8HP PRN for 10 Days, #30 TAB Prov:EVE MARTÍNEZ RESIDENT 04/21/24 Hydrocodone-Acetaminophen (Hydrocodone Bitartrate/AC 5-325 mg) 1 Tab Tab, 1 TAB PO QID PRN, #30 TAB Prov:[place] BOWMAN MD 03/15/24 Oxycodone W/ Acetaminophen (Percocet 5/325MG) 1 Tab Tb, 1 TAB PO QID for 5 Days, #20 TAB Prov:BERENICE MANNING MOLD REPAIRER 02/18/24 Reported Medications Multiple Vitamin (Multivitamin) 1 Tab Tab, 1 TAB PO DAILY 05/14/24 Folic Acid (Folic Acid) 1 Mg Tab, 1 TAB PO DAILY 03/12/24 Multiple Vitamin (One-Daily Multi-Vitamin) 1 Tab Tab, 1 TAB PO DAILY 03/12/24 Pancreatic Enzymes (Creon) 12,000 Unt Cap, PO 02/17/24 Sucralfate (Sucralfate) 1 Gm Tab, 1 TAB PO QID 02/16/24 Rivaroxaban (Xarelto) 2.5 Mg Tab, PO 02/16/24 Magnesium Oxide (True Magnesium Oxide) 400 Mg Tab, 1 TAB PO DAILY 02/16/24 Ethambutol Hcl (Ethambutol Hcl) 100 Mg Tab, 800 MG PO DAILY 02/16/24 Rifampin (Rifampin) 150 Mg Cap, 150 MG PO DAILY 02/16/24 Azithromycin (Azithromycin) 250 Mg Tab, 500 MG PO DAILY 02/16/24 Information Source: Patient Mode of Arrival: EMS Severity: Moderate Timing: Hours Duration: Since onset, Hours Prehospital treatment: None Past Medical History PAST MEDICAL HISTORY: Anxiety Surgical History: Denies all surgeries Family History Family History: Reviewed,noncontributory to illness, Unknown Social History Smoker: Cigarettes Alcohol: Sober Drugs: Denies Drug Use Lives In: Home Constitutional: denies: chills, diaphoresis, fatigue, fever, malaise, sweats, weakness, others EENTM: denies: blurred vision, double vision, ear bleeding, ear discharge, ear drainage, ear pain, ear ringing, eye pain, eye redness, hearing loss, mouth pain, mouth swelling, nasal discharge, nose bleeding, nose congestion, nose pain, photophobia, tearing, throat pain, throat swelling, voice changes, others Respiratory: denies: cough, hemoptysis, orthopnea, SOB at rest, shortness of breath, SOB with excertion, stridor, wheezing, others Cardiovascular: reports: syncope; denies: chest pain, dizzy spells, diaphoresis, Dyspnea on exertion, edema, irregular heart beat, left arm pain, lightheadedness, palpitations, PND, others Gastrointestinal: reports: abdominal pain; denies: abdomen distended, blood streaked bowels, constipated, diarrhea, dysphagia, difficulty swallowing, hematemesis, melena, nausea, poor appetite, poor fluid intake, rectal bleeding, rectal pain, vomiting, others Genitourinary: denies: burning, dysuria, flank pain, frequency, hematuria, incontinence, penile discharge, penile sore, pain, testicle pain, testicle swelling, urgency, others Neurological: denies: dizziness, fainting, headache, left sided numbness, left sided weakness, numbness, paresthesia, pre-existing deficit, right sided numbness, right sided weakness, seizure, speech problems, tingling, tremors, weakness, others Musculoskeletal: denies: back pain, gout, joint pain, joint swelling, muscle pain, muscle stiffness, neck pain, others Integumetry: denies: bruises, change in color, change in hair/nails, dryness, laceration, lesions, lumps, rash, wounds, others Allergic/Immunocompromised: denies: Difficulty Healing, Frequent Infections, Hives, Itching, others Hematologic/Lymphatic: denies: anemia, blood clots, easy bleeding, easy bruising, swollen glands, others Endocrine: denies: excessive hunger, excessive sweating, excessive thirst, excessive urination, flushing, intolerance to cold, intolerance to heat, unexplained weight gain, unexplained weight loss, others Psychiatric: denies: anxiety, bipolar disorder, depression, hopeless, panic disorder, schizophrenia, sleepless, suicidal, others All Other Systems: Reviewed and Negative Physical Exam Exam Comments ABD is Tender, Tachycardic General Appearance: No Apparent Distress, Normal HEENT: Normal ENT Inspection, Pharynx Normal, TMs Normal Neck: Full Range of Motion, Non-Tender, Normal, Normal Inspection Respiratory: Chest Non-Tender, Lungs Clear, No Accessory Muscle Use, No Respiratory Distress, Normal Breath Sounds Cardiovascular: No Edema, No JVD, No Murmur, No Gallop, Normal Peripheral Pulses, Tachycardia Breast Exam: Deferred Gastrointestinal: No Organomegaly, Non Tender, No Pulsatile Mass, Normal Bowel Sounds, Soft Genitalia: Deferred Pelvic: Deferred Rectal: Deferred Extremities: No calf tenderness, Normal capillary refill, Normal inspection, Normal range of motion, Non-tender, No pedal edema Musculoskeletal : Apperance: Normal Neurologic: Alert, bacteriology research assistant II-XII nml as Tested, No Motor Deficits, Normal Affect, Normal Mood, No Sensory Deficits Cerebellar Function: Normal Reflexes: Normal Skin: Dry, Normal Color, Warm Lymphatic: No Adenopathy Was a procedure done? Was a procedure done?: No Differential Dx Considerations may include: SPESIS, PANCREATIS, pancreatic abscess, pancreatic cyst/pseudocyst, dehydration, electrolyte disorders. hypocalcemia, vasquez leroy syncope, arrhythmias, ami X-Ray, Labs, Meds, VS Vital Signs Date Time Temp Pulse Resp B/P (MAP) Pulse Ox O2 Delivery O2 Flow Rate FiO2 07/08/24 16:00 98.5 77 14 101/68 (79) 97 98.5 07/08/24 14:00 98.2 79 12 116/35 (62) 97 98.2 07/08/24 12:24 97.9 94 16 99/63 (75) 97 97.9 07/08/24 12:19 97 07/08/24 12:06 98 Room Air* 0 21 07/08/24 11:42 97.5 116 18 96/63 (74) 97 97.5 Lab Test 07/08/24 17:06 07/08/24 14:42 07/08/24 13:26 07/08/24 12:17 Range/Units Lactic Acid Level Pending 2.1 *H 0.4-2.0 mmol/L Troponin I High Sensitivity Pending < 3 L < 3 L </=54 ng/L White Blood Count 7.1 4.4-10.8 10^3/uL Red Blood Count 4.22 L 4.5-5.90 10^6/uL Hemoglobin 13.8 13.5-17.5 g/dL Hematocrit 40.4 L 41.0-53.0 % Mean Corpuscular Volume 95.8 80.0-100.0 fL Mean Corpuscular Hemoglobin 32.8 H 28.0-32.0 pg Mean Corpuscular Hemoglobin Concent 34.2 32.0-36.0 g/dL Red Cell Distribution Width 13.5 11.8-14.3 % Platelet Count 379 140-450 10^3/uL Mean Platelet Volume 6.6 L 6.9-10.8 fL Neutrophils (%) (Auto) 70.0 37.0-80.0 % Lymphocytes (%) (Auto) 20.6 10.0-50.0 % Monocytes (%) (Auto) 8.2 0.0-12.0 % Eosinophils (%) (Auto) 0.7 0.0-7.0 % Basophils (%) (Auto) 0.5 0.0-2.0 % Neutrophils # (Auto) 5.0 1.6-8.6 10 ^3/uL Lymphocytes # (Auto) 1.5 0.4-5.4 10 ^3/uL Monocytes # (Auto) 0.6 0-1.3 10 ^3/uL Eosinophils # (Auto) 0.1 0-0.8 10 ^3/uL Basophils # (Auto) 0 0-0.2 10 ^3/uL Nucleated Red Blood Cells 0.0 % Sodium Level 130 L 136-145 mmol/L Potassium Level 4.0 3.5-5.1 mmol/L Chloride Level 98 98-107 mmol/L Carbon Dioxide Level 25 20-31 mmol/L Anion Gap 7 5-15 Blood Urea Nitrogen 7 L 9-23 mg/dL Creatinine 0.59 L 0.700-1.30 mg/dL Glomerular Filtration Rate Calc 115 >90 mL/min BUN/Creatinine Ratio 11.9 10.0-20.0 Serum Glucose 125 H 74-106 mg/dL Calcium Level 9.7 8.7-10.4 mg/dL Total Bilirubin 0.3 0.2-1.0 mg/dL Aspartate Amino Transferase (AST) 10 L 13-40 U/L Alanine Aminotransferase (ALT) 9 7-40 U/L Alkaline Phosphatase 102 46-116 U/L Total Protein 6.7 5.7-8.2 g/dL Albumin 3.9 3.2-4.8 g/dL Lipase 56 H 12-53 U/L POC Glucose 121 H 70-106 mg/dl Current Medications Medications (Trade) Dose Ordered Sig/Desean Route Start Time Stop Time Status Last Admin Lactated Ringer's 1,900 ml @ 1,900 mls/hr ONCE ONCE IV 07/08/24 12:45 07/08/24 13:44 DC 07/08/24 12:54 Piperacillin Sod/ Tazobactam Sod 100 ml @ 25 mls/hr Q8HR IV 07/08/24 14:00 07/08/24 15:42 Vancomycin HCl 100 ml @ 100 mls/hr ONCE ONCE IV 07/08/24 13:45 07/08/24 14:44 DC 07/08/24 15:23 Time of 1ST Reevaluation: 13:25 Reevaluation 1ST: Improved Time of 2ND Reevaluation: 17:44 Reevaluation 2ND: Improved Patient Education/Counseling: Diagnosis, Treatment, Prognosis Family Education/Counseling: No Family Present Additional Information The following tests were ordered, and results were reviewed by me: PHA, LAB, CT, XY Additional Information was gathered from interviewing the following independent historians:06/16/24 I reviewed and agreed with the following test results read by other providers:XY, CT I discussed treatment and results with medical personnel and: Patient Comprehensive systems review obtained and negative except for what is stated in the HPI. Departure 1 Departure Time of Disposition: 17:44 Impression: Primary Impression: Syncopal episodes Qualified Codes: R55 - Syncope and collapse Additional Impressions: Chronic pancreatitis Qualified Codes: K86.1 - Other chronic pancreatitis Pneumonitis Sepsis Qualified Codes: A41.9 - Sepsis, unspecified organism Disposition: ADMITTED INPATIENT Admit to: [facility] Condition: Serious Discharged With: Self Critical Care Note Critical Care Time?: Yes (1 hr-critical care time only) Critical care comment: Due to concerns for patients condition deteriorating, the care required my highest level of attention and readiness to intervene. I assessed the patient, reviewed the medical records, ordered the appropriate tests and treatments, then reassessed for results and responsiveness. I communicated with medical personnel and consultants and formulated a plan of care. Total critical care time excludes any procedures Stability Stability form required: No I personally scribed for HORACIO KINNEY MD ([email or web address]) on 07/08/24 at 15:54. Electronically submitted by Thom Carrillo ([email or web address]). HORACIO KINNEY MD Jul 08, 2024 15:54
[2024-07-08] MEDS: LORazepam 2MG/ML-1ML VIAL IV ONE (18:30)
--- NOTE | 2024-07-08 18:53 | ECG ---
[facility] Test Date: 2024-07-08 Test Time: 11:53:17 Pat Name: BC STERLING Department: ED Room: 0296 Gender: M Production Analyst: JORGE LUIS : 1970 Requested By: HORACIO KINNEY Order Number: [id number] Reading MD: Jonatan Ornelas Measurements Intervals [place] Rate: 97 P: 93 MO: 138 QRS: 77 QRSD: 157 T: 92 QT: 349 QTc: 444 Interpretive Statements Pacemaker spikes or artifacts Sinus rhythm Right atrial enlargement Nonspecific intraventricular conduction delay Minimal ST depression, lateral leads Electronically Signed On 07-12-2024 20:15:32 PDT by Jonatan Ornelas Please click the below link to view image of tracing.
[2024-07-08] MEDS ORDERED: ONDANSETRON HCL 4 MG/2 ML VIAL IV PRN (19:00)
[2024-07-08] MEDS ORDERED: PIPERACILLIN-TAZOB 3.375GM 100 ML IV SCH (19:00)
[2024-07-08] MEDS ORDERED: ACETAMINOPHEN 325 MG TAB PO PRN (19:00)
[2024-07-08] MEDS ORDERED: DOCUSATE SOD 100 MG CAP PO PRN (19:00)
--- NOTE | 2024-07-08 19:12 | DVHHP2 ---
Admitting Diagnosis: Syncope History of Present Illness 54M presents to the ER via EMS w/ prior hx of anxiety which may be associated to the c/c of Syncope. Pt reports on recently leaving [facility] yesterday after being admitted for gallstones. Pt reports on having a syncopal episode due from his BP being low. Pt notes that he did take his pain meds this morning at 0400 and felt "disoriented" Social Hx of tobacco use, but denies alcohol and substance use. Denies chills, fever, N/V/D, SOB, CP No other associated symptoms, modifiers, recent injuries or sick contacts present at this time. PAST MEDICAL HISTORY: Anxiety Surgical History: Denies all surgeries Family History Family History: Reviewed,noncontributory to illness, Unknown Social History Smoker: Cigarettes Alcohol: Sober Drugs: Denies Drug Use Lives In: Home Patient Family History: Patient reports no known family medical history. Allergies: Coded Allergies: NO KNOWN ALLERGIES (Unverified , 02/16/24) Home Meds Active Scripts Amoxicillin & Pot Clavulanate (AUGMENTIN TABLET) 875 Mg Tb, 875 MG PO BID for 5 Days, #10 TAB Prov:IDA PAIGE MD 06/16/24 Ibuprofen Micronized (Ibuprofen) 800 Mg Tab, 800 MG PO Q8HP PRN, #20 TAB Prov:LIDIA GRAY [facility] 06/12/24 Oxycodone Hcl (OxyCONTIN ER Tablet) 20 Mg Tb, 1 TAB PO BID for 5 Days, #10 TAB Prov:COREY SHEPHERD MD 04/21/24 Acetaminophen (Acetaminophen) 325 Mg Tab, 650 MG PO Q4HR for 30 Days, #360 TAB Prov:EVE MARTÍNEZ RESIDENT 04/21/24 Ibuprofen (Ibuprofen) 800 Mg Tab, 800 MG PO Q8HP PRN for 10 Days, #30 TAB Prov:EVE MARTÍNEZ RESIDENT 04/21/24 Hydrocodone-Acetaminophen (Hydrocodone Bitartrate/AC 5-325 mg) 1 Tab Tab, 1 TAB PO QID PRN, #30 TAB Prov:[place] BOWMAN MD 03/15/24 Oxycodone W/ Acetaminophen (Percocet 5/325MG) 1 Tab Tb, 1 TAB PO QID for 5 Days, #20 TAB Prov:BERENICE MANNING NP 02/18/24 Reported Medications Multiple Vitamin (Multivitamin) 1 Tab Tab, 1 TAB PO DAILY 05/14/24 Folic Acid (Folic Acid) 1 Mg Tab, 1 TAB PO DAILY 03/12/24 Multiple Vitamin (One-Daily Multi-Vitamin) 1 Tab Tab, 1 TAB PO DAILY 03/12/24 Pancreatic Enzymes (Creon) 12,000 Unt Cap, PO 02/17/24 Sucralfate (Sucralfate) 1 Gm Tab, 1 TAB PO QID 02/16/24 Rivaroxaban (Xarelto) 2.5 Mg Tab, PO 02/16/24 Magnesium Oxide (True Magnesium Oxide) 400 Mg Tab, 1 TAB PO DAILY 02/16/24 Ethambutol Hcl (Ethambutol Hcl) 100 Mg Tab, 800 MG PO DAILY 02/16/24 Rifampin (Rifampin) 150 Mg Cap, 150 MG PO DAILY 02/16/24 Azithromycin (Azithromycin) 250 Mg Tab, 500 MG PO DAILY 02/16/24 Current Medications Current Medications Medications (Trade) Dose Ordered Sig/Desean Route PRN Reason Start Time Stop Time Status Last Admin Vancomycin HCl 0 ml @ 0 mls/hr UD IV 07/08/24 12:45 Piperacillin Sod/ Tazobactam Sod 100 ml @ 25 mls/hr Q8HR IV 07/08/24 14:00 07/08/24 15:42 Vancomycin HCl 100 ml @ 100 mls/hr Q8H IV 07/08/24 21:00 Vital Signs Vital Signs Date Time Temp Pulse Resp B/P (MAP) Pulse Ox O2 Delivery O2 Flow Rate FiO2 07/08/24 18:00 98.0 68 12 107/68 (81) 97 98.0 07/08/24 12:06 Room Air* 0 21 Physical Exam Generally-54 years old male, well developed. No apparent distress HEENT-atraumatic, normocephalic Heart-regular rate and rhythm Lungs clear to auscultate bilaterally Abdomen soft , nontender nondistended Musculoskeletal-no edema cyanosis Neuro-AO x3, no focal Results Labs Test 07/08/24 17:06 07/08/24 13:26 07/08/24 12:17 Range/Units Lactic Acid Level 2.0 0.4-2.0 mmol/L Troponin I High Sensitivity 3 L </=54 ng/L White Blood Count 7.1 4.4-10.8 10^3/uL Red Blood Count 4.22 L 4.5-5.90 10^6/uL Hemoglobin 13.8 13.5-17.5 g/dL Hematocrit 40.4 L 41.0-53.0 % Mean Corpuscular Volume 95.8 80.0-100.0 fL Mean Corpuscular Hemoglobin 32.8 H 28.0-32.0 pg Mean Corpuscular Hemoglobin Concent 34.2 32.0-36.0 g/dL Red Cell Distribution Width 13.5 11.8-14.3 % Platelet Count 379 140-450 10^3/uL Mean Platelet Volume 6.6 L 6.9-10.8 fL Neutrophils (%) (Auto) 70.0 37.0-80.0 % Lymphocytes (%) (Auto) 20.6 10.0-50.0 % Monocytes (%) (Auto) 8.2 0.0-12.0 % Eosinophils (%) (Auto) 0.7 0.0-7.0 % Basophils (%) (Auto) 0.5 0.0-2.0 % Neutrophils # (Auto) 5.0 1.6-8.6 10 ^3/uL Lymphocytes # (Auto) 1.5 0.4-5.4 10 ^3/uL Monocytes # (Auto) 0.6 0-1.3 10 ^3/uL Eosinophils # (Auto) 0.1 0-0.8 10 ^3/uL Basophils # (Auto) 0 0-0.2 10 ^3/uL Nucleated Red Blood Cells 0.0 % Sodium Level 130 L 136-145 mmol/L Potassium Level 4.0 3.5-5.1 mmol/L Chloride Level 98 98-107 mmol/L Carbon Dioxide Level 25 20-31 mmol/L Anion Gap 7 5-15 Blood Urea Nitrogen 7 L 9-23 mg/dL Creatinine 0.59 L 0.700-1.30 mg/dL Glomerular Filtration Rate Calc 115 >90 mL/min BUN/Creatinine Ratio 11.9 10.0-20.0 Serum Glucose 125 H 74-106 mg/dL Calcium Level 9.7 8.7-10.4 mg/dL Total Bilirubin 0.3 0.2-1.0 mg/dL Aspartate Amino Transferase (AST) 10 L 13-40 U/L Alanine Aminotransferase (ALT) 9 7-40 U/L Alkaline Phosphatase 102 46-116 U/L Total Protein 6.7 5.7-8.2 g/dL Albumin 3.9 3.2-4.8 g/dL Lipase 56 H 12-53 U/L POC Glucose 121 H 70-106 mg/dl Primary Diagnosis Syncope Chronic pancreatitis Plan Patient states that he takes a lot opiates. Patient was taken dilated q.2 hours in Lovenox. No fever, no chills, no tachycardic Unclear why patient takes Xarelto 2.5. Patient is a poor historian needed medication reconciliation morning IV fluids for hydration Lactic acid normalize Recommended to hold opiates in view of syncope suspect orthostatic hypotension To orthostatic hypotension q.8 hours Pain control with Tylenol and ibuprofen Regular diet Full code Lovenox for DVT prophylaxis PPI for GI prophylaxis Plan discussed with: Patient Problems List: (1) Chronic pancreatitis Status: Acute (2) Syncopal episodes Status: Acute Date of Service: Jul 08, 2024 Billing Provider: PRUDENCIO GREEN MD Common Visit Codes: [id number] INP/OBS CARE (MOD) PRUDENCIO GREEN MD Jul 08, 2024 19:12
[2024-07-08 19:30] VITALS: PULSE 86; RESP 12; O2SAT 97
[2024-07-08] MEDS: LACTATED RINGER'S 1,000 ML IV ONE (19:51)
[2024-07-08 20:02] LABS: CRP High Sensitivity 3.22 mg/dL (<1.0)
[2024-07-08 20:05] LABS: Urine Bacteria None Seen /hpf (None Seen)
[2024-07-08 20:12] LABS: Urine Blood Negative /uL (Negative); Urine Clarity Clear (Clear); Urine Color Colorless (Yellow); Urine Protein, UAD Negative (Negative); Urine Specific Gravity 1.005 (1.001-1.035); Urine Squamous Epithelial Cell None Seen /hpf (<5); Urine Urobilinogen Normal (Negative)
[2024-07-08] MEDS ORDERED: ACETAMINOPHEN 325 MG TAB PO SCH (22:00)
[2024-07-08] MEDS: SUCRALFATE 1 GM TAB PO SCH (22:39)
[2024-07-08] MEDS: SODIUM CHLOR 0.9% PF (SALINE LOCK) 10ML VIAL/SYR IV SCH (22:39)
[2024-07-08] MEDS: PANTOPRAZOLE 40 MG/10 ML VIAL INJ IV SCH (22:39)
[2024-07-08] MEDS: VANCOMYCIN 750MG KIT 100 ML IV SCH (23:00)
[2024-07-08 23:22] VITALS: BP 92/61; PULSE 79; RESP 17; TEMP 97.5; O2SAT 98
[2024-07-08 23:45] VITALS: PULSE 79; RESP 17; O2SAT 98
[2024-07-09] MEDS: VANCOMYCIN 1GM/200ML PM 200 ML IV ONE (00:30)
[2024-07-09 01:00] VITALS: BP 92/72; PULSE 74; RESP 17; TEMP 97.6; O2SAT 98
[2024-07-09 05:00] VITALS: BP 120/70; PULSE 66; RESP 17; TEMP 97.4; O2SAT 99
[2024-07-09] MEDS ORDERED: VANCOMYCIN 1GM/200ML PM 200 ML IV ONE (05:00)
[2024-07-09 06:41] LABS: Basophils # (auto) 0 10 ^3/uL (0-0.2); Basophils % (auto) 0.5 % (0.0-2.0); Eosinophils # (auto) 0.1 10 ^3/uL (0-0.8); Eosinophils % (auto) 2.4 % (0.0-7.0); Hematocrit 40.1 % (41.0-53.0); Hemoglobin 13.7 g/dL (13.5-17.5); Lymphocytes # (auto) 1.5 10 ^3/uL (0.4-5.4); Lymphocytes % (auto) 26.6 % (10.0-50.0); Mean Corpuscular Hemoglobin 32.6 pg (28.0-32.0); Mean Corpuscular Hgb Conc. 34.2 g/dL (32.0-36.0); Mean Corpuscular Volume 95.5 fL (80.0-100.0); Monocytes # (auto) 0.5 10 ^3/uL (0-1.3); Monocytes % (auto) 9.4 % (0.0-12.0); Neutrophils # (auto) 3.4 10 ^3/uL (1.6-8.6); Neutrophils % (auto) 61.1 % (37.0-80.0); Platelet Count (auto) 382 10^3/uL (140-450); Red Cell Distribution Width 13.4 % (11.8-14.3); White Blood Cell 5.5 10^3/uL (4.4-10.8)
[2024-07-09 07:17] LABS: Alanine Aminotransferase 11 U/L (7-40); Albumin 3.8 g/dL (3.2-4.8); Alkaline Phosphatase 95 U/L (46-116); Anion Gap 5 (5-15); BUN/Creatinine Ratio 10.2 (10.0-20.0); Calcium 9.6 mg/dL (8.7-10.4); Carbon Dioxide 29 mmol/L (20-31); Chloride 102 mmol/L (98-107); Glucose 100 mg/dL (74-106); Potassium 4.7 mmol/L (3.5-5.1); Sodium 136 mmol/L (136-145); Total Protein 6.5 g/dL (5.7-8.2)
[2024-07-09 07:22] LABS: Aspartate Aminotransferase 11 U/L (13-40); Bilirubin, Total 0.2 mg/dL (0.2-1.0); Blood Urea Nitrogen 6 mg/dL (9-23)
[2024-07-09] MEDS ORDERED: FOLIC ACID 1 MG TAB PO SCH (10:00)
[2024-07-09] MEDS ORDERED: ENOXAPARIN SOD 40 MG/0.4 ML SYRINGE SC SCH (10:00)
[2024-07-09] MEDS ORDERED: MULTIPLE VITAMIN TAB PO SCH (10:00)
== END 2024-07-09 09:22 | disposition left against medical advice (07) | DRG 204 ==
LOC: EDBD 11:35 → ER 11:35 → OVERFLOW 18:58 → WEST WING 19:06
PROVIDERS: ADMIT Internal Medicine; ATTEND Internal Medicine
DX: I95.1 Orthostatic hypotension (principal); J15.69 Pneumonia due to other Gram-negative bacteria; J15.9 Unspecified bacterial pneumonia; F17.210 Nicotine dependence, cigarettes, uncomplicated; K86.1 Other chronic pancreatitis; K80.20 Calculus of gallbladder without cholecystitis without obstruction; Z79.899 Other long term (current) drug therapy; Z79.1 Long term (current) use of non-steroidal anti-inflammatories (NSAID); Z53.29 Procedure and treatment not carried out because of patient's decision for other reasons
CPT/HCPCS: 36415; 71045; 74176; 80053; 81001; 82550; 82962; 83605; 83690; 84484; 85025; 86141; 87040; 87081; 93005; 96365; 96366; 96368; 96375; 99291; G0378; J2470; J2543

== ENCOUNTER 2024-07-09 14:45 | Inpatient (IN) | payer MEDICAID ==
[~2024-07-09] VITALS: Ht 167.6 cm; Wt 47.9 kg
--- NOTE | 2024-07-09 15:35 | ED.PDOC ---
History of Present Illness HPI Comments 54 y/o M, with PMHx of anxiety and pancreatics presents to the ED for CC of hypotension. Patient states, that he has been experiencing fluctuating blood pressure reading since being discharged from [facility] earlier today (06/08/24). Patient was previously admitted to [facility] on Saturday (07/08/24) for Dx: Syncopal Episode. He stays on 07/08/2024 he was discharged from the [place] following ERCP that cause pancreatitis. Review of the chart shows the patient was multiple previous admissions and visits here. Patient denies chest pain, fever, chills, shortness of breath, or weakness. No other symptoms or modifying factors present at this time. Chief Complaint: Low Blood Pressure Time Seen by MD: 15:10 Primary Care Provider: MARK Cody Notes: Nurses Notes, Medications, Allergies Allergies: Coded Allergies: NO KNOWN ALLERGIES (Unverified , 02/16/24) Home Meds Active Scripts Amoxicillin & Pot Clavulanate (AUGMENTIN TABLET) 875 Mg Tb, 875 MG PO BID for 5 Days, #10 TAB Prov:IDA PAIGE MD 06/16/24 Ibuprofen Micronized (Ibuprofen) 800 Mg Tab, 800 MG PO Q8HP PRN, #20 TAB Prov:LIDIA GRAY PAC 06/12/24 Oxycodone Hcl (OxyCONTIN ER Tablet) 20 Mg Tb, 1 TAB PO BID for 5 Days, #10 TAB Prov:COREY SHEPHERD MD 04/21/24 Acetaminophen (Acetaminophen) 325 Mg Tab, 650 MG PO Q4HR for 30 Days, #360 TAB Prov:EVE MARTÍNEZ RESIDENT 04/21/24 Ibuprofen (Ibuprofen) 800 Mg Tab, 800 MG PO Q8HP PRN for 10 Days, #30 TAB Prov:EVE MARTÍNEZ RESIDENT 04/21/24 Hydrocodone-Acetaminophen (Hydrocodone Bitartrate/AC 5-325 mg) 1 Tab Tab, 1 TAB PO QID PRN, #30 TAB Prov:[place] BOWMAN MD 03/15/24 Oxycodone W/ Acetaminophen (Percocet 5/325MG) 1 Tab Tb, 1 TAB PO QID for 5 Days, #20 TAB Prov:BERENICE MANNING NP 02/18/24 Reported Medications Multiple Vitamin (Multivitamin) 1 Tab Tab, 1 TAB PO DAILY 05/14/24 Folic Acid (Folic Acid) 1 Mg Tab, 1 TAB PO DAILY 03/12/24 Multiple Vitamin (One-Daily Multi-Vitamin) 1 Tab Tab, 1 TAB PO DAILY 03/12/24 Pancreatic Enzymes (Creon) 12,000 Unt Cap, PO 02/17/24 Sucralfate (Sucralfate) 1 Gm Tab, 1 TAB PO QID 02/16/24 Rivaroxaban (Xarelto) 2.5 Mg Tab, PO 02/16/24 Magnesium Oxide (True Magnesium Oxide) 400 Mg Tab, 1 TAB PO DAILY 02/16/24 Ethambutol Hcl (Ethambutol Hcl) 100 Mg Tab, 800 MG PO DAILY 02/16/24 Rifampin (Rifampin) 150 Mg Cap, 150 MG PO DAILY 02/16/24 Azithromycin (Azithromycin) 250 Mg Tab, 500 MG PO DAILY 02/16/24 Information Source: Patient Mode of Arrival: EMS Severity: Moderate Timing: Hours Duration: Since onset Prehospital treatment: None Past Medical History PAST MEDICAL HISTORY: Anxiety Past Medical History (Other): pancreatitis Surgical History: Denies all surgeries Family History Family History: Reviewed,noncontributory to illness, Unknown Social History Smoker: Cigarettes Alcohol: Sober Drugs: Denies Drug Use Lives In: Home Constitutional: reports: fatigue, weakness; denies: chills, diaphoresis, fever, malaise, sweats, others EENTM: denies: blurred vision, double vision, ear bleeding, ear discharge, ear drainage, ear pain, ear ringing, eye pain, eye redness, hearing loss, mouth pain, mouth swelling, nasal discharge, nose bleeding, nose congestion, nose pain, photophobia, tearing, throat pain, throat swelling, voice changes, others Respiratory: denies: cough, hemoptysis, orthopnea, SOB at rest, shortness of breath, SOB with excertion, stridor, wheezing, others Cardiovascular: denies: chest pain, dizzy spells, diaphoresis, Dyspnea on exertion, edema, irregular heart beat, left arm pain, lightheadedness, palpitations, PND, syncope, others Gastrointestinal: denies: abdomen distended, abdominal pain, blood streaked bowels, constipated, diarrhea, dysphagia, difficulty swallowing, hematemesis, melena, nausea, poor appetite, poor fluid intake, rectal bleeding, rectal pain, vomiting, others Genitourinary: denies: burning, dysuria, flank pain, frequency, hematuria, incontinence, penile discharge, penile sore, pain, testicle pain, testicle swe lling, urgency, others Neurological: denies: dizziness, fainting, headache, left sided numbness, left sided weakness, numbness, paresthesia, pre-existing deficit, right sided numbness, right sided weakness, seizure, speech problems, tingling, tremors, weakness, others Musculoskeletal: denies: back pain, gout, joint pain, joint swelling, muscle pain, muscle stiffness, neck pain, others Integumetry: denies: bruises, change in color, change in hair/nails, dryness, laceration, lesions, lumps, rash, wounds, others Allergic/Immunocompromised: denies: Difficulty Healing, Frequent Infections, Hives, Itching, others Hematologic/Lymphatic: denies: anemia, blood clots, easy bleeding, easy bruising, swollen glands, others Endocrine: denies: excessive hunger, excessive sweating, excessive thirst, excessive urination, flushing, intolerance to cold, intolerance to heat, unexplained weight gain, unexplained weight loss, others Psychiatric: denies: anxiety, bipolar disorder, depression, hopeless, panic disorder, schizophrenia, sleepless, suicidal, others All Other Systems: Reviewed and Negative Physical Exam General Appearance: No Apparent Distress, Normal HEENT: Normal ENT Inspection, Pharynx Normal Neck: Full Range of Motion, Non-Tender, Normal, Normal Inspection Respiratory: Chest Non-Tender, Lungs Clear, No Accessory Muscle Use, No Respiratory Distress, Normal Breath Sounds Cardiovascular: No Edema, No Murmur, No Gallop, Normal Peripheral Pulses, Regular Rate/Rhythm Breast Exam: Deferred Gastrointestinal: No Organomegaly, Non Tender, No Pulsatile Mass, Normal Bowel Sounds, Soft Genitalia: Deferred Pelvic: Deferred Rectal: Deferred Extremities: No calf tenderness, Normal capillary refill, Normal inspection, Normal range of motion, Non-tender, No pedal edema Neurologic: Alert, collar sewer II-XII nml as Tested, No Motor Deficits, Normal Affect, Normal Mood, No Sensory Deficits Cerebellar Function: NOT DONE Reflexes: NOT DONE Skin: Dry, Normal Color, Warm Lymphatic: No Adenopathy Was a procedure done? Was a procedure done?: No EKG EKG : Pulse Rate (adult): 107 [place]: Normal Cardiac Rhythm: ST Block: None Hypertrophy: JOEL Differential Dx Considerations may include: ANEMIA, DEHYDRATION, HORMONAL IMBALANCE X-Ray, Labs, Meds, VS Vital Signs Date Time Temp Pulse Resp B/P (MAP) Pulse Ox O2 Delivery O2 Flow Rate FiO2 07/09/24 15:56 94/67 07/09/24 15:53 94/67 (76) 07/09/24 15:48 107 07/09/24 15:36 98.0 107 16 85/64 (71) 98 98.0 07/09/24 15:35 97.8 84 11 117/65 (82) 97 97.8 07/09/24 15:24 107 Lab Test 07/09/24 16:18 Range/Units White Blood Count 6.5 4.4-10.8 10^3/uL Red Blood Count 4.11 L 4.5-5.90 10^6/uL Hemoglobin 13.7 13.5-17.5 g/dL Hematocrit 39.3 L 41.0-53.0 % Mean Corpuscular Volume 95.6 80.0-100.0 fL Mean Corpuscular Hemoglobin 33.2 H 28.0-32.0 pg Mean Corpuscular Hemoglobin Concent 34.8 32.0-36.0 g/dL Red Cell Distribution Width 13.2 11.8-14.3 % Platelet Count 394 140-450 10^3/uL Mean Platelet Volume 6.5 L 6.9-10.8 fL Neutrophils (%) (Auto) 61.2 37.0-80.0 % Lymphocytes (%) (Auto) 28.4 10.0-50.0 % Monocytes (%) (Auto) 8.0 0.0-12.0 % Eosinophils (%) (Auto) 1.7 0.0-7.0 % Basophils (%) (Auto) 0.7 0.0-2.0 % Neutrophils # (Auto) 4.0 1.6-8.6 10 ^3/uL Lymphocytes # (Auto) 1.8 0.4-5.4 10 ^3/uL Monocytes # (Auto) 0.5 0-1.3 10 ^3/uL Eosinophils # (Auto) 0.1 0-0.8 10 ^3/uL Basophils # (Auto) 0 0-0.2 10 ^3/uL Nucleated Red Blood Cells 0.0 % Prothrombin Time Pending Prothrombin Time INR Pending Activated Partial Thromboplast Time Pending D-Dimer, Quantitative Pending Sodium Level Pending Potassium Level Pending Chloride Level Pending Carbon Dioxide Level Pending Anion Gap Pending Blood Urea Nitrogen Pending Creatinine Pending Glomerular Filtration Rate Calc Pending BUN/Creatinine Ratio Pending Serum Glucose Pending Calcium Level Pending Magnesium Level Pending Total Bilirubin Pending Aspartate Amino Transferase (AST) Pending Alanine Aminotransferase (ALT) Pending Alkaline Phosphatase Pending Troponin I High Sensitivity Pending B-Type Natriuretic Peptide Pending Total Protein Pending Albumin Pending X-Ray, Labs, Meds, VS Comment This 54-year-old male who is a frequent visitor of medical facilities presents secondary to hypotension. The patient was discharged 2 days ago after spending 1 week in the [facility]. He then spent 24 hours in our facility secondary to syncope. He was discharged home and promptly returned stating his blood pressure is all over the place. He was slightly low here. The patient appears to be homeless. He will be admitted for further workup management as hypotension. Time of 1ST Reevaluation: 15:40 Reevaluation 1ST: Unchanged Patient Education/Counseling: Diagnosis, Treatment Family Education/Counseling: No Family Present Departure 1 Departure Time of Disposition: 16:45 Impression: Primary Impression: Hypotension Additional Impression: Weakness Disposition: 09 ADMITTED INPATIENT Condition: Fair Critical Care Note Critical Care Time?: No Stability Stability form required: No Heart Score Heart Score: Heart Score Response (Comments) Value History N/A 0 EKG N/A 0 Age N/A 0 Risk Factors N/A 0 Troponin N/A 0 Total 0 I personally scribed for ARTHUR REN MD ([email or web address]) on 07/09/24 at 15:35. Electronically submitted by Lorri Trujillo ([email or web address]). I personally scribed for ARTHUR REN MD ([email or web address]) on 07/09/24 at 15:48. Electronically submitted by Lorri Trujillo ([email or web address]). ARTHUR REN MD Jul 09, 2024 15:35
[2024-07-09] MEDS: hydrALAZINE HCL 20 MG/ML VL IV ONE (15:56)
[2024-07-09 16:30] LABS: Basophils # (auto) 0 10 ^3/uL (0-0.2); Basophils % (auto) 0.7 % (0.0-2.0); Eosinophils # (auto) 0.1 10 ^3/uL (0-0.8); Eosinophils % (auto) 1.7 % (0.0-7.0); Hematocrit 39.3 % (41.0-53.0); Hemoglobin 13.7 g/dL (13.5-17.5); Lymphocytes # (auto) 1.8 10 ^3/uL (0.4-5.4); Lymphocytes % (auto) 28.4 % (10.0-50.0); Mean Corpuscular Hemoglobin 33.2 pg (28.0-32.0); Mean Corpuscular Hgb Conc. 34.8 g/dL (32.0-36.0); Mean Corpuscular Volume 95.6 fL (80.0-100.0); Monocytes # (auto) 0.5 10 ^3/uL (0-1.3); Neutrophils % (auto) 61.2 % (37.0-80.0); Platelet Count (auto) 394 10^3/uL (140-450); Red Blood Cells 4.11 10^6/uL (4.5-5.90); Red Cell Distribution Width 13.2 % (11.8-14.3); White Blood Cell 6.5 10^3/uL (4.4-10.8)
[2024-07-09 16:45] LABS: INR 1.46 (0.9-1.15); Partial Thromboplastin Time 35.6 SEC (24.5-34.5); Prothrombin Time 14.9 sec (9.3-11.8)
[2024-07-09 16:49] LABS: Alkaline Phosphatase 100 U/L (46-116); Anion Gap 6 (5-15); BUN/Creatinine Ratio 15.7 (10.0-20.0); Blood Urea Nitrogen 11 mg/dL (9-23); Calcium 9.7 mg/dL (8.7-10.4); Carbon Dioxide 29 mmol/L (20-31); Chloride 101 mmol/L (98-107); Glucose 102 mg/dL (74-106); Magnesium 1.7 mg/dL (1.6-2.6); Potassium 4.1 mmol/L (3.5-5.1); Sodium 136 mmol/L (136-145); Total Protein 6.8 g/dL (5.7-8.2)
[2024-07-09 16:50] LABS: Aspartate Aminotransferase 10 U/L (13-40)
[2024-07-09 16:51] LABS: Alanine Aminotransferase 9 U/L (7-40); Bilirubin, Total 0.2 mg/dL (0.2-1.0)
[2024-07-09] MEDS: SODIUM CHLORIDE 0.9% 2,000 ML IV ONE (16:58)
[2024-07-09 17:32] VITALS: PULSE 94; RESP 16; O2SAT 99
--- NOTE | 2024-07-09 17:59 | DVHHP2 ---
Admitting Diagnosis: Hypotension History of Present Illness 54 y/o M, with PMHx of anxiety and pancreatics presents to the ED for CC of hypotension. Patient states, that he has been experiencing fluctuating blood pressure reading since being discharged from [facility] earlier today (06/08/24). Patient was previously admitted to [facility] on Saturday (07/08/24) for Dx: Syncopal Episode. He stays on 07/08/2024 he was discharged from the [place] following ERCP that cause pancreatitis. Review of the chart shows the patient was multiple previous admissions and visits here. Patient denies chest pain, fever, chills, shortness of breath, or weakness. No other symptoms or modifying factors present at this time. PAST MEDICAL HISTORY: Anxiety Past Medical History (Other): pancreatitis Surgical History: Denies all surgeries Family History Family History: Reviewed,noncontributory to illness, Unknown Social History Smoker: Cigarettes Alcohol: Sober Drugs: Denies Drug Use Lives In: Home Patient Family History: Patient reports no known family medical history. Allergies: Coded Allergies: NO KNOWN ALLERGIES (Unverified , 02/16/24) Home Meds Active Scripts Amoxicillin & Pot Clavulanate (AUGMENTIN TABLET) 875 Mg Tb, 875 MG PO BID for 5 Days, #10 TAB Prov:IDA PAIGE MD 06/16/24 Ibuprofen Micronized (Ibuprofen) 800 Mg Tab, 800 MG PO Q8HP PRN, #20 TAB Prov:LIDIA GRAY [facility] 06/12/24 Oxycodone Hcl (OxyCONTIN ER Tablet) 20 Mg Tb, 1 TAB PO BID for 5 Days, #10 TAB Prov:COREY SHEPHERD MD 04/21/24 Acetaminophen (Acetaminophen) 325 Mg Tab, 650 MG PO Q4HR for 30 Days, #360 TAB Prov:EVE MARTÍNEZ RESIDENT 04/21/24 Ibuprofen (Ibuprofen) 800 Mg Tab, 800 MG PO Q8HP PRN for 10 Days, #30 TAB Prov:EVE MARTÍNEZ RESIDENT 04/21/24 Hydrocodone-Acetaminophen (Hydrocodone Bitartrate/AC 5-325 mg) 1 Tab Tab, 1 TAB PO QID PRN, #30 TAB Prov:[place] BOWMAN MD 03/15/24 Oxycodone W/ Acetaminophen (Percocet 5/325MG) 1 Tab Tb, 1 TAB PO QID for 5 Days, #20 TAB Prov:BERENICE MANNING [facility] 02/18/24 Reported Medications Multiple Vitamin (Multivitamin) 1 Tab Tab, 1 TAB PO DAILY 05/14/24 Folic Acid (Folic Acid) 1 Mg Tab, 1 TAB PO DAILY 03/12/24 Multiple Vitamin (One-Daily Multi-Vitamin) 1 Tab Tab, 1 TAB PO DAILY 03/12/24 Pancreatic Enzymes (Creon) 12,000 Unt Cap, PO 02/17/24 Sucralfate (Sucralfate) 1 Gm Tab, 1 TAB PO QID 02/16/24 Rivaroxaban (Xarelto) 2.5 Mg Tab, PO 02/16/24 Magnesium Oxide (True Magnesium Oxide) 400 Mg Tab, 1 TAB PO DAILY 02/16/24 Ethambutol Hcl (Ethambutol Hcl) 100 Mg Tab, 800 MG PO DAILY 02/16/24 Rifampin (Rifampin) 150 Mg Cap, 150 MG PO DAILY 02/16/24 Azithromycin (Azithromycin) 250 Mg Tab, 500 MG PO DAILY 02/16/24 Vital Signs Vital Signs Date Time Temp Pulse Resp B/P (MAP) Pulse Ox O2 Delivery O2 Flow Rate FiO2 07/09/24 17:32 94 16 99 Room Air* 0 21 07/09/24 15:56 94/67 07/09/24 15:36 98.0 98.0 Physical Exam Generally-74 years old male, well nourished well developed. No apparent distress HEENT-atraumatic normocephalic Heart-regular rate and rhythm lungs clear to auscultate Abdomen, soft mild tender, nondistended Musculoskeletal-no edema cyanosis Neuro-AO x3, no focal deficits Results Labs Test 07/09/24 16:18 Range/Units White Blood Count 6.5 4.4-10.8 10^3/uL Red Blood Count 4.11 L 4.5-5.90 10^6/uL Hemoglobin 13.7 13.5-17.5 g/dL Hematocrit 39.3 L 41.0-53.0 % Mean Corpuscular Volume 95.6 80.0-100.0 fL Mean Corpuscular Hemoglobin 33.2 H 28.0-32.0 pg Mean Corpuscular Hemoglobin Concent 34.8 32.0-36.0 g/dL Red Cell Distribution Width 13.2 11.8-14.3 % Platelet Count 394 140-450 10^3/uL Mean Platelet Volume 6.5 L 6.9-10.8 fL Neutrophils (%) (Auto) 61.2 37.0-80.0 % Lymphocytes (%) (Auto) 28.4 10.0-50.0 % Monocytes (%) (Auto) 8.0 0.0-12.0 % Eosinophils (%) (Auto) 1.7 0.0-7.0 % Basophils (%) (Auto) 0.7 0.0-2.0 % Neutrophils # (Auto) 4.0 1.6-8.6 10 ^3/uL Lymphocytes # (Auto) 1.8 0.4-5.4 10 ^3/uL Monocytes # (Auto) 0.5 0-1.3 10 ^3/uL Eosinophils # (Auto) 0.1 0-0.8 10 ^3/uL Basophils # (Auto) 0 0-0.2 10 ^3/uL Nucleated Red Blood Cells 0.0 % Prothrombin Time 14.9 H 9.3-11.8 sec Prothrombin Time INR 1.46 H 0.9-1.15 Activated Partial Thromboplast Time 35.6 H 24.5-34.5 SEC D-Dimer, Quantitative 0.35 0.0-0.49 mg/L FEU Sodium Level 136 136-145 mmol/L Potassium Level 4.1 3.5-5.1 mmol/L Chloride Level 101 98-107 mmol/L Carbon Dioxide Level 29 20-31 mmol/L Anion Gap 6 5-15 Blood Urea Nitrogen 11 9-23 mg/dL Creatinine 0.70 0.700-1.30 mg/dL Glomerular Filtration Rate Calc 109 >90 mL/min BUN/Creatinine Ratio 15.7 10.0-20.0 Serum Glucose 102 74-106 mg/dL Calcium Level 9.7 8.7-10.4 mg/dL Magnesium Level 1.7 1.6-2.6 mg/dL Total Bilirubin 0.2 0.2-1.0 mg/dL Aspartate Amino Transferase (AST) 10 L 13-40 U/L Alanine Aminotransferase (ALT) 9 7-40 U/L Alkaline Phosphatase 100 46-116 U/L Troponin I High Sensitivity < 3 L </=54 ng/L B-Type Natriuretic Peptide 49.51 0-100 pg/mL Total Protein 6.8 5.7-8.2 g/dL Albumin 4.0 3.2-4.8 g/dL Primary Diagnosis Hypotension likely due to opiate use rule out infection Plan Recently discharged from [place] due to dilated common bile duct. Patient states he had a ERCP but stone was unable to retrieve but not infected at this time Patient will follow up with the surgery LFTs within normal range Check ultrasound of abdomen to assess for intrahepatic and extrahepatic biliary duct obstruction Avoid opiates. Patient was taken Dilaudid Q 2 hours while in [place] NS bolus IV fluids hydration Check orthostatic hypotension Full code Lovenox for DVT prophylaxis PPI for GI prophylaxis Liquid diet. NPO after midnight if abnormal finding in ultrasound. If not adv ance as tolerated Plan discussed with: Patient Problems List: (1) Hypotension Status: Acute (2) Chronic pancreatitis Status: Acute Date of Service: Jul 09, 2024 Billing Provider: PRUDENCIO GREEN MD Common Visit Codes: [id number] INP/OBS CARE (MOD) PRUDENCIO GREEN MD Jul 09, 2024 17:59
[2024-07-09] MEDS: SODIUM CHLORIDE 0.9% 1,000 ML IV ONE (18:00)
[2024-07-09] MEDS ORDERED: ONDANSETRON HCL 4 MG/2 ML VIAL IV PRN (18:00)
[2024-07-09] MEDS ORDERED: DOCUSATE SOD 100 MG CAP PO PRN (18:00)
[2024-07-09] MEDS: SUCRALFATE 1 GM TAB PO SCH (18:28)
--- NOTE | 2024-07-09 19:15 | ECG ---
[facility] Test Date: 2024-07-09 Test Time: 15:24:59 Pat Name: BC STERLING Department: ER Room: 0296 Gender: M Manager Behavior: MERCEDES : 1970 Requested By: ARTHUR REN Order Number: [id number] Reading MD: Jonatan Ornelas Measurements Intervals [place] Rate: 107 P: 92 NC: 125 QRS: 69 QRSD: 89 T: 48 QT: 332 QTc: 443 Interpretive Statements Sinus tachycardia Right atrial enlargement Consider right ventricular hypertrophy Electronically Signed On 07-12-2024 20:23:21 PDT by Jonatan Ornelas Please click the below link to view image of tracing.
--- NOTE | 2024-07-09 19:26 | DVH ---
EXAM: US ABDOMEN LIMITED HISTORY: Assess for intra and extrahepatic biliary obstruction COMPARISON: US ABDOMEN LIMITED on DOS: 04/09/24 TECHNIQUE: Multiple longitudinal and transverse sonographic images of the abdomen were obtained. Dopp ler was applied as indicated. FINDINGS: [PANCREAS]: Calcifications in the pancreatic head uncinate process with heterogeneous echotexture. S equelae of chronic pancreatitis better appreciated on prior CT abdomen/pelvis. [AORTA]: Normal [LIVER]: 14.8 cm. increased echogenicity. There is no focal hepatic mass lesion detected. [GALLBLADDER]: Gallbladder wall measures 0.3 cm. There is no gallbladder sludge or shadowing gallston e. There is no sonographic Cleary sign. [BILIARY TREE]: Common bile duct measures 0.6 cm in diameter. no intrahepatic biliary ductal dilatati on. [ASCITES]: No free fluid is demonstrated. [VESSELS]: The main portal vein is patent on color Doppler evaluation. The inferior vena cava is brooks nt on color Doppler evaluation. [RIGHT KIDNEY]: 9.7 cm. normal cortical echogenicity and normal contour. No hydronephrosis. IMPRESSION: 1. Heterogeneously echogenic liver, which is a nonspecific finding and may represent hepatic steatosi s and/or other underlying hepatocellular pathology. 2. No intrahepatic or extrahepatic biliary dilation.
[2024-07-09 20:32] VITALS: BP 106/54; PULSE 86; RESP 19; TEMP 98.3; O2SAT 98
[2024-07-09 21:00] VITALS: BP 106/54; PULSE 86; RESP 19; TEMP 98.3; O2SAT 98
[2024-07-09] MEDS: SODIUM CHLOR 0.9% PF (SALINE LOCK) 10ML VIAL/SYR IV SCH (21:12)
[2024-07-09] MEDS: ACETAMINOPHEN 325 MG TAB PO PRN (21:13)
[2024-07-10 01:00] VITALS: BP 98/67; PULSE 72; RESP 19; TEMP 98.2; O2SAT 99
[2024-07-10] MEDS: LORazepam 2MG/ML-1ML VIAL IV ONE (01:08)
[2024-07-10 07:27] LABS: Basophils # (auto) 0 10 ^3/uL (0-0.2); Basophils % (auto) 0.7 % (0.0-2.0); Eosinophils # (auto) 0.2 10 ^3/uL (0-0.8); Eosinophils % (auto) 2.9 % (0.0-7.0); Hemoglobin 12.1 g/dL (13.5-17.5); Lymphocytes # (auto) 1.8 10 ^3/uL (0.4-5.4); Mean Corpuscular Hemoglobin 32.8 pg (28.0-32.0); Mean Corpuscular Hgb Conc. 34.5 g/dL (32.0-36.0); Mean Corpuscular Volume 95.1 fL (80.0-100.0); Monocytes # (auto) 0.5 10 ^3/uL (0-1.3); Monocytes % (auto) 9.5 % (0.0-12.0); Neutrophils # (auto) 2.8 10 ^3/uL (1.6-8.6); Neutrophils % (auto) 52.9 % (37.0-80.0); Nucleated Red Blood Cells % 0.1 %; Platelet Count (auto) 337 10^3/uL (140-450); Red Blood Cells 3.68 10^6/uL (4.5-5.90); Red Cell Distribution Width 13.7 % (11.8-14.3); White Blood Cell 5.3 10^3/uL (4.4-10.8)
[2024-07-10 07:46] LABS: Alanine Aminotransferase 10 U/L (7-40); Albumin 3.6 g/dL (3.2-4.8); Alkaline Phosphatase 89 U/L (46-116); Anion Gap 8 (5-15); BUN/Creatinine Ratio 15.1 (10.0-20.0); Calcium 9.3 mg/dL (8.7-10.4); Carbon Dioxide 26 mmol/L (20-31); Chloride 103 mmol/L (98-107); Potassium 3.7 mmol/L (3.5-5.1); Sodium 137 mmol/L (136-145); Total Protein 5.9 g/dL (5.7-8.2)
[2024-07-10 07:48] LABS: Aspartate Aminotransferase 10 U/L (13-40); Bilirubin, Total < 0.2 mg/dL (0.2-1.0); Blood Urea Nitrogen 8 mg/dL (9-23); Glucose 129 mg/dL (74-106)
[2024-07-10 08:00] VITALS: PULSE 80; RESP 18; O2SAT 99
[2024-07-10 09:14] VITALS: BP 141/71; PULSE 77; RESP 20; TEMP 98.6; O2SAT 97
[2024-07-10] MEDS ORDERED: MULTIPLE VITAMIN TAB PO SCH (10:00)
[2024-07-10] MEDS: FOLIC ACID 1 MG TAB PO SCH (10:00)
[2024-07-10] MEDS: MULTIPLE VITAMIN TAB PO SCH (10:00)
[2024-07-10 12:44] VITALS: BP 103/62; PULSE 60; RESP 18; TEMP 98.7; O2SAT 91
--- NOTE | 2024-07-10 13:14 | DVHDS2 ---
Discharge Summary Date of Admission Jul 09, 2024 at 17:48 Date of Discharge: Jul 10, 2024 Admitting Diagnosis Hypotension likely due to opiate use and dehydration Recent history of commode bile duct dilation with ERCP in [facility] Chronic pain syndrome Labs/Diagnostic Data: Laboratory Results Test 07/10/24 06:50 07/09/24 16:18 White Blood Count 5.3 10^3/uL (4.4-10.8) Red Blood Count 3.68 10^6/uL (4.5-5.90) Hemoglobin 12.1 g/dL (13.5-17.5) Hematocrit 35.0 % (41.0-53.0) Mean Corpuscular Volume 95.1 fL (80.0-100.0) Mean Corpuscular Hemoglobin 32.8 pg (28.0-32.0) Mean Corpuscular Hemoglobin Concent 34.5 g/dL (32.0-36.0) Red Cell Distribution Width 13.7 % (11.8-14.3) Platelet Count 337 10^3/uL (140-450) Mean Platelet Volume 6.7 fL (6.9-10.8) Neutrophils (%) (Auto) 52.9 % (37.0-80.0) Lymphocytes (%) (Auto) 34.0 % (10.0-50.0) Monocytes (%) (Auto) 9.5 % (0.0-12.0) Eosinophils (%) (Auto) 2.9 % (0.0-7.0) Basophils (%) (Auto) 0.7 % (0.0-2.0) Neutrophils # (Auto) 2.8 10 ^3/uL (1.6-8.6) Lymphocytes # (Auto) 1.8 10 ^3/uL (0.4-5.4) Monocytes # (Auto) 0.5 10 ^3/uL (0-1.3) Eosinophils # (Auto) 0.2 10 ^3/uL (0-0.8) Basophils # (Auto) 0 10 ^3/uL (0-0.2) Nucleated Red Blood Cells 0.1 % Sodium Level 137 mmol/L (136-145) Potassium Level 3.7 mmol/L (3.5-5.1) Chloride Level 103 mmol/L (98-107) Carbon Dioxide Level 26 mmol/L (20-31) Anion Gap 8 (5-15) Blood Urea Nitrogen 8 mg/dL (9-23) Creatinine 0.53 mg/dL (0.700-1.30) Glomerular Filtration Rate Calc 118 mL/min (>90) BUN/Creatinine Ratio 15.1 (10.0-20.0) Serum Glucose 129 mg/dL (74-106) Calcium Level 9.3 mg/dL (8.7-10.4) Total Bilirubin < 0.2 mg/dL (0.2-1.0) Aspartate Amino Transferase (AST) 10 U/L (13-40) Alanine Aminotransferase (ALT) 10 U/L (7-40) Alkaline Phosphatase 89 U/L (46-116) Total Protein 5.9 g/dL (5.7-8.2) Albumin 3.6 g/dL (3.2-4.8) Prothrombin Time 14.9 sec (9.3-11.8) Prothrombin Time INR 1.46 (0.9-1.15) Activated Partial Thromboplast Time 35.6 SEC (24.5-34.5) D-Dimer, Quantitative 0.35 mg/L FEU (0.0-0.49) Magnesium Level 1.7 mg/dL (1.6-2.6) Troponin I High Sensitivity < 3 ng/L (</=54) C-Reactive Protein High Sensitivity 2.19 mg/dL (<1.0) B-Type Natriuretic Peptide 49.51 pg/mL (0-100) Other Laboratory Tests 07/10/24 06:50 Brief Hx & Hospital Course: This is a 54 years old male with past medical history of pancreatitis, anxiety come to emergency department because of dizziness and hypotension. The patient apparently had experience fluctuate blood pressure since being discharged [facility] after a procedure ERCP. Apparently he was discharged from [facility] follow the ERCP for common bile duct dilation and choledocholithiasis. He said after the ERCP he started having complication with acute pancreatitis. He is supposed to see his pain management doctor yesterday but he showed up in [facility] 07/09/2023 and he was given pain medications. Patient signed out against medical advice because he do not want to miss the appointment with pain management doctor. However, according to him, he still misses the appointment with pain management doctor and supposed to have his reschedule later today. Today come back in because the pain is unbearable and also he feels dizzy. He measures blood pressure at home in his was low in the 80s systolic so he decided to come to hospital for further evaluation. When he 1st came in ER this time, his blood pressure was 85/64. The patient was given IV fluid. The patient was given pain medication. He tolerated with diet today and able to advance diet to regular. His blood pressure is stable today so I am going to discharge him home. Follow up with primary care physician 1-2 weeks. Follow up with his pain management dog today per schedule. Activity as tolerated. Diet per home diet. Physical exam: HEENT: Normocephalic atraumatic pupils equal react to light and accommodation. Extraocular muscles intact, conjunctiva pink, oropharynx moist, no thrush, no exudate. Lymphatic: No lymphadenopathy Cardiovascular exam: S1, S2 was heard. No murmurs, rubs, gallops Lung: Clear on auscultation bilaterally, no wheeze, rale, rhonchi. GI: Abdominal soft, nondistended, nontenderness, positive bowel sounds. Extremity: No crepitus, cyanosis, edema. Pedal pulses present bilateral. Full range of motion. Skin: Normal turgor, no rash. Psych: Alert, oriented x3. Neurology: No focal deficits, cranial nerve II to XII grossly intact. This medical document was created using an electronic medical record system with [employer] direct computerized dictation system. Although this document has been carefully reviewed, there may still be some phonetic and typographical errors. These areas are purely typographical due to imperfections of the software programs, and do not reflect any compromise in the patient's medical care. Condition at Discharge: Stable Final Diagnosis/Problems List Hypotension likely due to opiate use and dehydration Recent history of commode bile duct dilation with ERCP in [place] Chronic pain syndrome Discharge Disposition: Home Discharge Instruct/Medications Diet: Regular Activity: No Restrictions, As Tolerated Follow Up/Referral: pcp 1-2 weeks Medications: resume home meds Discharge Statement: "Patient was advised to return to the ER or call 911 if any headaches, dizziness, shortness of breath, chest pain, abdominal pain, bleeding, fevers, or worsening of medical condition. Patient was counseled about treatment plan, medications, possible side effects, patientverbalized understanding. All questions were answered to the best of my ability. This discharge took greater then 30 minutes in planning, reviewing documentation, counseling the patient, and discussing with other team members." ASSESSMENT ASSESSMENT Assessment hypotension Date of Service: Jul 10, 2024 Billing Provider: GILLES FAULKNER MD Common Visit Codes: 10401-FBE/OBS DISCH DAY >30min GILLES FAULKNER MD Jul 10, 2024 13:14
[2024-07-10 13:30] VITALS: BP 94/67
== END 2024-07-10 14:30 | disposition home or self-care (01) | DRG 207 ==
LOC: ER 14:52 → OVERFLOW 17:48 → WEST WING 19:10
PROVIDERS: ADMIT Internal Medicine; ATTEND Internal Medicine
DX: I95.2 Hypotension due to drugs (principal); E86.0 Dehydration; F17.210 Nicotine dependence, cigarettes, uncomplicated; F41.9 Anxiety disorder, unspecified; G89.4 Chronic pain syndrome; T40.605A Adverse effect of unspecified narcotics, initial encounter; Z79.1 Long term (current) use of non-steroidal anti-inflammatories (NSAID); Z79.2 Long term (current) use of antibiotics; Z79.891 Long term (current) use of opiate analgesic; Z79.899 Other long term (current) drug therapy; Y92.89 Other specified places as the place of occurrence of the external cause
CPT/HCPCS: 36415; 76705; 80053; 83735; 83880; 84484; 85025; 85379; 85610; 85730; 86141; 93005; 96360; 96361; G0378

== ENCOUNTER 2024-09-22 15:00 | Emergency (ER) | payer MEDICAID ==
[~2024-09-22] VITALS: Ht 167.6 cm; Wt 45.6 kg
--- NOTE | 2024-09-22 16:50 | DVH ---
Technique: Real-time ultrasound imaging, with color Doppler and compression of the right common femo ral vein, femoral vein, greater saphenous vein, and popliteal vein. Indication: recent surgery right leg pain and swelling Comparison: None Findings: There is normal compressibility and flow augmentation in all of the imaged deep veins. There are no f illing defects. Impression: No evidence of DVT in the right lower extremity
[2024-09-22 17:10] LABS: Hematocrit 35.8 % (41.0-53.0); Hemoglobin 12.3 g/dL (13.5-17.5); Mean Corpuscular Hemoglobin 32.9 pg (28.0-32.0); Mean Corpuscular Volume 96.0 fL (80.0-100.0); Nucleated Red Blood Cells % 0.1 %
[2024-09-22 17:11] LABS: Chloride 101 mmol/L (98-107); Potassium 4.2 mmol/L (3.5-5.1)
[2024-09-22 17:12] LABS: Anion Gap 5 (5-15); Calcium 10.0 mg/dL (8.7-10.4); Carbon Dioxide 30 mmol/L (20-31)
[2024-09-22 17:13] LABS: Sodium 136 mmol/L (136-145)
--- NOTE | 2024-09-22 17:13 | ED.PDOC ---
Musculoskeletal HPI Comments 54 y/o M,with PMHx of anxiety presents to the ED for CC of lower extremity swelling. Patient states, he has been experiencing right leg swelling with associated pain and numbness [id number]. Patient denies trauma, injury, or fall. No other symptoms or modifying factors present at this time. Chief Complaint: Lower Extremity Time Seen by MD: 15:50 Primary Care Provider: MARK Reviewed Notes: Nurses Notes, Medications, Allergies Allergies: Coded Allergies: NO KNOWN ALLERGIES (Unverified , 02/16/24) Home Meds Active Scripts Amoxicillin & Pot Clavulanate (AUGMENTIN TABLET) 875 Mg Tb, 875 MG PO BID for 5 Days, #10 TAB Prov:IDA PAIGE MD 06/16/24 Ibuprofen Micronized (Ibuprofen) 800 Mg Tab, 800 MG PO Q8HP PRN, #20 TAB Prov:LIDIA GRAY PAC 06/12/24 Oxycodone Hcl (OxyCONTIN ER Tablet) 20 Mg Tb, 1 TAB PO BID for 5 Days, #10 TAB Prov:COREY SHEPHERD MD 04/21/24 Acetaminophen (Acetaminophen) 325 Mg Tab, 650 MG PO Q4HR for 30 Days, #360 TAB Prov:EVE MARTÍNEZ RESIDENT 04/21/24 Ibuprofen (Ibuprofen) 800 Mg Tab, 800 MG PO Q8HP PRN for 10 Days, #30 TAB Prov:EVE MARTÍNEZ RESIDENT 04/21/24 Hydrocodone-Acetaminophen (Hydrocodone Bitartrate/AC 5-325 mg) 1 Tab Tab, 1 TAB PO QID PRN, #30 TAB Prov:FLORIDA BOWMAN MD 03/15/24 Oxycodone W/ Acetaminophen (Percocet 5/325MG) 1 Tab Tb, 1 TAB PO QID for 5 Days, #20 TAB Prov:BERENICE MANNING NP 02/18/24 Reported Medications Multiple Vitamin (Multivitamin) 1 Tab Tab, 1 TAB PO DAILY 05/14/24 Folic Acid (Folic Acid) 1 Mg Tab, 1 TAB PO DAILY 03/12/24 Multiple Vitamin (One-Daily Multi-Vitamin) 1 Tab Tab, 1 TAB PO DAILY 03/12/24 Pancreatic Enzymes (Creon) 12,000 Unt Cap, PO 02/17/24 Sucralfate (Sucralfate) 1 Gm Tab, 1 TAB PO QID 02/16/24 Rivaroxaban (Xarelto) 2.5 Mg Tab, PO 02/16/24 Magnesium Oxide (True Magnesium Oxide) 400 Mg Tab, 1 TAB PO DAILY 02/16/24 Ethambutol Hcl (Ethambutol Hcl) 100 Mg Tab, 800 MG PO DAILY 02/16/24 Rifampin (Rifampin) 150 Mg Cap, 150 MG PO DAILY 02/16/24 Azithromycin (Azithromycin) 250 Mg Tab, 500 MG PO DAILY 02/16/24 Information Source: Patient Mode of Arrival: Ambulatory Location: Right Extremity Location: Leg Timing: Days Prehospital treatment: None Severity: Moderate Able to Move Extremity: Yes Bear Weight: Fully Pain: Moderate Circumstances: Spontaneous Onset of Symptoms: Spontaneous Symptoms: Swelling, Pain Last Tetanus: Unknown Associated signs and symptoms: Leg pain Past Medical History PAST MEDICAL HISTORY: Anxiety Surgical History: Denies all surgeries Family History Family History: Reviewed,noncontributory to illness, Unknown Social History Smoker: Cigarettes Alcohol: Sober Drugs: Denies Drug Use Lives In: Home Constitutional: denies: chills, diaphoresis, fatigue, fever, malaise, sweats, weakness, others EENTM: denies: blurred vision, double vision, ear bleeding, ear discharge, ear drainage, ear pain, ear ringing, eye pain, eye redness, hearing loss, mouth pain, mouth swelling, nasal discharge, nose bleeding, nose congestion, nose pain, photophobia, tearing, throat pain, throat swelling, voice changes, others Respiratory: denies: cough, hemoptysis, orthopnea, SOB at rest, shortness of breath, SOB with excertion, stridor, wheezing, others Cardiovascular: denies: chest pain, dizzy spells, diaphoresis, Dyspnea on exertion, edema, irregular heart beat, left arm pain, lightheadedness, palpitations, PND, syncope, others Gastrointestinal: denies: abdomen distended, abdominal pain, blood streaked bowels, constipated, diarrhea, dysphagia, difficulty swallowing, hematemesis, melena, nausea, poor appetite, poor fluid intake, rectal bleeding, rectal pain, vomiting, others Genitourinary: denies: burning, dysuria, flank pain, frequency, hematuria, incontinence, penile discharge, penile sore, pain, testicle pain, testicle swelling, urgency, others Neurological: denies: dizziness, fainting, headache, left sided numbness, left sided weakness, numbness, paresthesia, pre-existing deficit, right sided numbness, right sided weakness, seizure, speech problems, tingling, tremors, weakness, others Musculoskeletal: reports: others (right leg swelling); denies: back pain, gout, joint pain, joint swelling, muscle pain, muscle stiffness, neck pain Integumetry: denies: bruises, change in color, change in hair/nails, dryness, laceration, lesions, lumps, rash, wounds, others Allergic/Immunocompromised: denies: Difficulty Healing, Frequent Infections, Hives, Itching, others Hematologic/Lymphatic: denies: anemia, blood clots, easy bleeding, easy bruising, swollen glands, others Endocrine: denies: excessive hunger, excessive sweating, excessive thirst, excessive urination, flushing, intolerance to cold, intolerance to heat, unexplained weight gain, unexplained weight loss, others Psychiatric: denies: anxiety, bipolar disorder, depression, hopeless, panic disorder, schizophrenia, sleepless, suicidal, others All Other Systems: Reviewed and Negative Physical Exam General Appearance: No Apparent Distress, Normal HEENT: Normal ENT Inspection, Pharynx Normal Neck: Full Range of Motion, Non-Tender, Normal, Normal Inspection Respiratory: Chest Non-Tender, Lungs Clear, No Accessory Muscle Use, No Respiratory Distress, Normal Breath Sounds Cardiovascular: No Edema, No Murmur, No Gallop, Normal Peripheral Pulses, Regular Rate/Rhythm Breast Exam: Deferred Gastrointestinal: No Organomegaly, Non Tender, No Pulsatile Mass, Normal Bowel Sounds, Soft Genitalia: Deferred Pelvic: Deferred Rectal: Deferred Extremities: No calf tenderness, Normal capillary refill, Normal inspection, Normal range of motion, Non-tender, Swelling (right leg) Musculoskeletal : Apperance: Normal Neurologic: Alert, x ray equipment mechanic II-XII nml as Tested, No Motor Deficits, Normal Affect, Normal Mood, No Sensory Deficits Cerebellar Function: Normal Reflexes: Normal Skin: Dry, Normal Color, Warm Lymphatic: No Adenopathy Was a procedure done? Was a procedure done?: No Differential Diagnosis EXT Differential Diagnosis: Cellulitis, CHF, Deep Vein Thrombosis, Strain X-Ray, Labs, Meds, VS Vital Signs Date Time Temp Pulse Resp B/P (MAP) Pulse Ox O2 Delivery O2 Flow Rate FiO2 7/8/25 15:15 98.9 103 20 92/64 (73) 96 98.9 Lab Test 09/22/24 16:28 Range/Units White Blood Count 5.4 4.4-10.8 10^3/uL Red Blood Count 3.73 L 4.5-5.90 10^6/uL Hemoglobin 12.3 L 13.5-17.5 g/dL Hematocrit 35.8 L 41.0-53.0 % Mean Corpuscular Volume 96.0 80.0-100.0 fL Mean Corpuscular Hemoglobin 32.9 H 28.0-32.0 pg Mean Corpuscular Hemoglobin Concent 34.3 32.0-36.0 g/dL Red Cell Distribution Width 14.0 11.8-14.3 % Platelet Count 346 140-450 10^3/uL Mean Platelet Volume 7.4 6.9-10.8 fL Neutrophils (%) (Auto) 39.8 37.0-80.0 % Lymphocytes (%) (Auto) 48.0 10.0-50.0 % Monocytes (%) (Auto) 7.3 0.0-12.0 % Eosinophils (%) (Auto) 3.5 0.0-7.0 % Basophils (%) (Auto) 1.4 0.0-2.0 % Neutrophils # (Auto) 2.2 1.6-8.6 10 ^3/uL Lymphocytes # (Auto) 2.6 0.4-5.4 10 ^3/uL Monocytes # (Auto) 0.4 0-1.3 10 ^3/uL Eosinophils # (Auto) 0.2 0-0.8 10 ^3/uL Basophils # (Auto) 0.1 0-0.2 10 ^3/uL Nucleated Red Blood Cells 0.1 % D-Dimer, Quantitative 0.58 H 0.0-0.49 mg/L FEU Sodium Level 136 136-145 mmol/L Potassium Level 4.2 3.5-5.1 mmol/L Chloride Level 101 98-107 mmol/L Carbon Dioxide Level 30 20-31 mmol/L Anion Gap 5 5-15 Blood Urea Nitrogen 11 9-23 mg/dL Creatinine 0.74 0.700-1.30 mg/dL Glomerular Filtration Rate Calc 107 >90 mL/min BUN/Creatinine Ratio 14.9 10.0-20.0 Serum Glucose 86 74-106 mg/dL Calcium Level 10.0 8.7-10.4 mg/dL Time of 1ST Reevaluation: 16:20 Reevaluation 1ST: Unchanged Patient Education/Counseling: Diagnosis, Treatment Family Education/Counseling: No Family Present Departure 1 Departure Time of Disposition: 17:44 (Patient's ultrasound was benign. We will discharge patient home with outpatient follow up) Impression: Primary Impression: Strain of right knee and leg Qualified Codes: S86.911A - Strain of unspecified muscle(s) and tendon(s) at lower leg level, right leg, initial encounter Disposition: HOME / SELF CARE / HOMELESS Condition: Stable Additional Instructions: Your ultrasound was negative for a blood clot You likely have muscle strain.. You should follow up with your regular doctor next week to ensure you are feeling better. Discharged With: Self Critical Care Note Critical Care Time?: No Stability Stability form required: No Heart Score Heart Score: Heart Score Response (Comments) Value History N/A 0 EKG N/A 0 Age N/A 0 Risk Factors N/A 0 Troponin N/A 0 Total 0 I personally scribed for IDA PAIGE MD ([email or web address]) on 09/22/24 at 17:13. Electronically submitted by Lorri Trujillo ([email or web address]). I personally scribed for IDA PAIGE MD ([email or web address]) on 09/22/24 at 17:15. Electronically submitted by Lorri Trujillo ([email or web address]). IDA PAIGE MD Sep 22, 2024 17:13
[2024-09-22 17:17] LABS: BUN/Creatinine Ratio 14.9 (10.0-20.0); Blood Urea Nitrogen 11 mg/dL (9-23); Glucose 86 mg/dL (74-106)
[2024-09-22 18:09] VITALS: BP 101/64; PULSE 84; RESP 18; TEMP 97.9; O2SAT 98
== END 2024-09-22 18:11 | disposition home or self-care (01) ==
LOC: ER 15:00
DX: S86.911A Strain of unspecified muscle(s) and tendon(s) at lower leg level, right leg, initial encounter (principal); F17.210 Nicotine dependence, cigarettes, uncomplicated; F41.9 Anxiety disorder, unspecified; Z79.899 Other long term (current) drug therapy; X58.XXXA Exposure to other specified factors, initial encounter; Y93.89 Activity, other specified; Y92.89 Other specified places as the place of occurrence of the external cause; Y99.8 Other external cause status
CPT/HCPCS: 36415; 80048; 85025; 85379; 93971

== ENCOUNTER 2024-09-26 10:02 | Inpatient (IN) | payer MEDICAID ==
[~2024-09-26] VITALS: Ht 152.4 cm; Wt 45.5 kg
--- NOTE | 2024-09-26 10:52 | ECG ---
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
--- NOTE | 2024-09-26 10:52 | ED.PDOC ---
History of Present Illness(SKN HPI Comments 54-year-old male presents here with drainage from his wound site. Patient state he had a mini Whipple done at [facility] last month on [address] Betts He states yesterday he began to have fever that he did not measure, chills and mild diarrhea. As well as abdominal pain. Patient tried to call the doctor's office but because of Saturday there was no answer. Patient states he woke up this morning and had dried purulent discharge to his wound site. Chief Complaint: Wound Check Time Seen by MD: 10:18 Primary Care Provider: MARK Allergies: Coded Allergies: NO KNOWN ALLERGIES (Unverified , 02/16/24) Home Meds Active Scripts Amoxicillin & Pot Clavulanate (AUGMENTIN TABLET) 875 Mg Tb, 875 MG PO BID for 5 Days, #10 TAB Prov:IDA PAIGE MD 06/16/24 Ibuprofen Micronized (Ibuprofen) 800 Mg Tab, 800 MG PO Q8HP PRN, #20 TAB Prov:LIDIA GRAY 06/12/24 Oxycodone Hcl (OxyCONTIN ER Tablet) 20 Mg Tb, 1 TAB PO BID for 5 Days, #10 TAB Prov:COREY SHEPHERD MD 04/21/24 Acetaminophen (Acetaminophen) 325 Mg Tab, 650 MG PO Q4HR for 30 Days, #360 TAB Prov:EVE MARTÍNEZ RESIDENT 04/21/24 Ibuprofen (Ibuprofen) 800 Mg Tab, 800 MG PO Q8HP PRN for 10 Days, #30 TAB Prov:EVE MARTÍNEZ RESIDENT 04/21/24 Hydrocodone-Acetaminophen (Hydrocodone Bitartrate/AC 5-325 mg) 1 Tab Tab, 1 TAB PO QID PRN, #30 TAB Prov:FLORIDA BOWMAN MD 03/15/24 Oxycodone W/ Acetaminophen (Percocet 5/325MG) 1 Tab Tb, 1 TAB PO QID for 5 Days, #20 TAB Prov:BERENICE MANNING NP 02/18/24 Reported Medications Multiple Vitamin (Multivitamin) 1 Tab Tab, 1 TAB PO DAILY 05/14/24 Folic Acid (Folic Acid) 1 Mg Tab, 1 TAB PO DAILY 03/12/24 Multiple Vitamin (One-Daily Multi-Vitamin) 1 Tab Tab, 1 TAB PO DAILY 03/12/24 Pancreatic Enzymes (Creon) 12,000 Unt Cap, PO 02/17/24 Sucralfate (Sucralfate) 1 Gm Tab, 1 TAB PO QID 02/16/24 Rivaroxaban (Xarelto) 2.5 Mg Tab, PO 02/16/24 Magnesium Oxide (True Magnesium Oxide) 400 Mg Tab, 1 TAB PO DAILY 02/16/24 Ethambutol Hcl (Ethambutol Hcl) 100 Mg Tab, 800 MG PO DAILY 02/16/24 Rifampin (Rifampin) 150 Mg Cap, 150 MG PO DAILY 02/16/24 Azithromycin (Azithromycin) 250 Mg Tab, 500 MG PO DAILY 02/16/24 Mode of Arrival: Ambulatory Past Medical History PAST MEDICAL HISTORY: Anxiety Surgical History (Other): Many Whipple August 2024 Family History Family History: Reviewed,noncontributory to illness, Unknown Social History Smoker: Cigarettes Alcohol: Sober Drugs: Denies Drug Use Lives In: Home All Other Systems: Reviewed and Negative Physical Exam General Appearance: Moderate Distress HEENT: Normal ENT Inspection, Pharynx Normal, TMs Normal Neck: Full Range of Motion, Non-Tender, Normal, Normal Inspection Respiratory: Chest Non-Tender, Lungs Clear, No Accessory Muscle Use, No Resp iratory Distress, Normal Breath Sounds Cardiovascular: No Edema, No JVD, No Murmur, No Gallop, Normal Peripheral Pulses, Tachycardia Breast Exam: Deferred Gastrointestinal: No Organomegaly, No Pulsatile Mass, Soft, Tenderness, Other (Tenderness to the right upper quadrant. Has a proximally 10 cm midline wound with erythema near wound site and actively draining purulent discharge near the distal end.) Genitalia: Deferred Pelvic: Deferred Rectal: Deferred Extremities: No calf tenderness, Normal capillary refill, Normal inspection, Normal range of motion, Non-tender, No pedal edema Musculoskeletal : Apperance: Normal Neurologic: Alert, compensation and benefits administrator II-XII nml as Tested, No Motor Deficits, Normal Affect, Normal Mood, No Sensory Deficits Cerebellar Function: Normal Reflexes: Normal Skin: Dry, Normal Color, Warm Lymphatic: No Adenopathy Was a procedure done? Was a procedure done?: No EKG EKG : Comments Sinus tachycardia, rate of 120, no significant ST changes Differential Diagnosis (INTG) Differential Diagnosis: N/A Differential Diagnosis: N/A Differential Diagnosis: N/A Abscess: Abscess, Bacteremia, Cellulitis, Gas Gangrene Differential Diagnosis: N/A (Sepsis) X-Ray, Labs, Meds, VS Vital Signs Date Time Temp Pulse Resp B/P (MAP) Pulse Ox O2 Delivery O2 Flow Rate FiO2 09/26/24 14:22 63 20 122/81 09/26/24 11:37 97.8 105 20 99/69 (79) 97 97.8 09/26/24 10:15 120 09/26/24 10:13 97.6 121 100 127/93 (104) 100 97.6 Lab Test 09/26/24 15:19 09/26/24 12:52 09/26/24 11:25 09/26/24 10:56 Range/Units Troponin I High Sensitivity < 3 L < 3 L < 3 L </=54 ng/L Urine Color Light-yellow Yellow Urine Clarity Clear Clear Urine pH 6.0 5.0-9.0 Urine Specific [place] > 1.035 H 1.001-1.035 Urine Protein Negative Negative Urine Ketones Negative Negative Urine Blood Negative Negative /uL Urine Nitrite Negative Negative Urine Bilirubin Negative Negative Urine Urobilinogen Normal Negative mg/dL Urine Leukocyte Esterase Negative Negative /uL Urine RBC 2 0 - 3 /hpf Urine Microscopic WBC < 1 0-3 /HPF Urine Squamous Epithelial Cells None seen <5 /hpf Urine Bacteria None seen None Seen /hpf Urine Glucose Normal Normal mg/dL White Blood Count 5.0 4.4-10.8 10^3/uL Red Blood Count 4.23 L 4.5-5.90 10^6/uL Hemoglobin 13.5 13.5-17.5 g/dL Hematocrit 40.7 #L 41.0-53.0 % Mean Corpuscular Volume 96.3 80.0-100.0 fL Mean Corpuscular Hemoglobin 32.1 H 28.0-32.0 pg Mean Corpuscular Hemoglobin Concent 33.3 32.0-36.0 g/dL Red Cell Distribution Width 14.3 11.8-14.3 % Platelet Count 342 140-450 10^3/uL Mean Platelet Volume 7.3 6.9-10.8 fL Neutrophils (%) (Auto) 38.7 37.0-80.0 % Lymphocytes (%) (Auto) 48.8 10.0-50.0 % Monocytes (%) (Auto) 7.3 0.0-12.0 % Eosinophils (%) (Auto) 4.1 0.0-7.0 % Basophils (%) (Auto) 1.1 0.0-2.0 % Neutrophils # (Auto) 1.9 1.6-8.6 10 ^3/uL Lymphocytes # (Auto) 2.4 0.4-5.4 10 ^3/uL Monocytes # (Auto) 0.4 0-1.3 10 ^3/uL Eosinophils # (Auto) 0.2 0-0.8 10 ^3/uL Basophils # (Auto) 0.1 0-0.2 10 ^3/uL Nucleated Red Blood Cells 0.0 % Sodium Level 136 136-145 mmol/L Potassium Level 4.0 3.5-5.1 mmol/L Chloride Level 101 98-107 mmol/L Carbon Dioxide Level 29 20-31 mmol/L Anion Gap 6 5-15 Blood Urea Nitrogen 11 9-23 mg/dL Creatinine 0.84 0.700-1.30 mg/dL Glomerular Filtration Rate Calc 103 >90 mL/min BUN/Creatinine Ratio 13.1 10.0-20.0 Serum Glucose 170 H 74-106 mg/dL Calcium Level 10.3 8.7-10.4 mg/dL Total Bilirubin 0.2 0.2-1.0 mg/dL Aspartate Amino Transferase (AST) 21 13-40 U/L Alanine Aminotransferase (ALT) 22 7-40 U/L Alkaline Phosphatase 103 46-116 U/L Total Protein 6.8 5.7-8.2 g/dL Albumin 4.2 3.2-4.8 g/dL Test 09/26/24 10:50 Range/Units Lactic Acid Level 1.6 0.4-2.0 mmol/L Current Medications Medications (Trade) Dose Ordered Sig/Desean Route Start Time Stop Time Status Last Admin Hydromorphone HCl (Dilaudid Injection) 0.5 mg ONCE ONCE IV 09/26/24 10:45 09/26/24 10:46 DC 09/26/24 14:22 Sodium Chloride 1,500 ml @ 1,500 mls/hr ONCE ONCE IV 09/26/24 11:00 09/26/24 11:59 DC 09/26/24 11:35 Acetaminophen/ Hydrocodone Bitart (Peck 10/325MG Tab) 1 tab ONCE ONCE PO 7/12/25 12:30 09/26/24 12:31 DC 09/26/24 15:51 Piperacillin Sod/ Tazobactam Sod 100 ml @ 100 mls/hr ONCE ONCE IV 09/26/24 12:45 09/26/24 13:44 DC 09/26/24 12:45 Vancomycin HCl 250 ml @ 250 mls/hr Q1H IV 09/26/24 13:15 09/26/24 15:14 DC 09/26/24 17:12 PATIENT: BC STERLING EDERICAACCT: [id number] UNIT: [id number] : 1970 LOC: ER ROOM / BED: / AGE / SEX: 54 / M ADM STATUS: REG ER SERVICE 1039 ORDERING PHYSICIAN: DAYSI PEREZ MD PROCEDURE(s): ABPLIV - CT AB PEL WITH IV CON ONLY REASON: Rule out abscess ORDER NUMBER(s): [id number], ACCESSION NUMBER(s): [id number] Indication: Rule out abscess Technique: CT axial images of the abdomen and pelvis are obtained with intravenous contrast. Coronal and sagittal reformats were obtained. Radiation Dose Information: CTDI volume is 5.07 mGy. Dose-length product is 261.91 mGy*cm Comparison: CT CT AB PEL WITH IV CON ONLY on DOS: 03/18/24, CT CT AB PEL WITH IV CON ONLY on DOS: 02/16/24 FINDINGS: The lung bases demonstrate right lower lobe tree-in-bud nodularity. Right lower lobe nodular lesion measuring 10 mm. Adrenal glands, spleen unremarkable. Pancreatic parenchymal calcifications and atrophy. No CT evidence for cholelithiasis. Dilated common bile duct measuring 10 mm no enhancing hepatic lesion. The kidneys demonstrate no hydronephrosis. Stomach is partially distended. Small bowel loops are moderately distended. Moderate volume stool in the colon. No secondary signs for appendicitis. Abdominal aortic atherosclerotic disease. Bladder distended. No free pelvic fluid. No inguinal lymphadenopathy. Mild bilateral sacroiliac degenerative joint disease. Mild thoracolumbar degenerative disc disease.122 Soft tissue edema / anasarca. IMPRESSION: Dilated common bile duct measuring 10 mm. Recommend MRCP /MRI abdomen to further characterize. Sequela of chronic pancreatitis. Right lower lobe tree-in-bud nodularity which can be secondary to atypical infection, bronchiolitis. 10 mm right lower lobe nodular lesion. Recommend follow-up per fleischner society criteria. Moderate volume stool within the colon. Atherosclerotic disease. Other findings as described. ATED BY: ELAN GRAHAM MD DICTATED DATE/TIME: 09/26/24 155 SIGNED BY: ELAN GRAHAM MD SIGNED DATE/TIME: 09/26/24 155 CC: 54-year-old male presents here for purulent drainage from midline incision site from mini Whipple done at [place] last month. Patient found to be tachycardic at 120. in triage. Concern for sepsis. CBC, CMP, troponin, lactic acid, blood culture, and a CT abdomen pelvis with IV contrast ordered. CT abdomen pelvis demonstrates dilated common bile duct which likely his chronic. Also demonstrates right lower lobe tree-in-bud nodularity which could be secondary to atypical infection. However there was no evidence of abscess. However while patient was in the ER he would have low blood pressures which were low as 80 systolic.. He was given IV fluids. I was concerned for sepsis and started the patient on IV vancomycin and Zosyn. At this time labs have returned normal. With no WBC count and normal lactic acid. However given his low blood pressures, significant purulent discharge exuding from the wound site in his recent surgery, I am concerned for worsening infection. At this time hospitalist team has been contacted for admission. Time of 1ST Reevaluation: 11:26 Reevaluation 1ST: Improved Patient Education/Counseling: Diagnosis, Treatment Family Education/Counseling: No Family Present SEPSIS Sepsis Screen Date sepsis recognized/suspect: Sep 26, 2024 Time Sepsis recognized/suspect: 1009 Recent Procedure: Yes On Antibiotic Therapy: No Respiratory Rate >20: No Heart Rate >90: Yes Temp<36 C (96.8 F) or >38.3 C: No SBP <90 or MAP <65 mmHG: No New Acute Mental Status Change: No Is the patient on CPAP, BIPAP,: No IV fluid challenge completed?: Yes Physician Orders Blood Culture (09/26/24 10:39) Wound Culture W/ Gs (09/26/24 10:39) Sepsis Initial Assessment ONCE (09/26/24 10:39) Sepsis Reassessment After Flui (09/26/24 10:40) Ct Ab Pel With Iv Con Only (09/26/24 10:39) Initiate Sepsis Protocol (09/26/24 10:39) Place Under Ed Observation (09/26/24 13:14) Mrcp Mri (09/26/24 16:55) Vital Signs Date Time Temp Pulse Resp B/P (MAP) Pulse Ox O2 Delivery O2 Flow Rate FiO2 09/26/24 14:22 63 20 122/81 09/26/24 11:37 97.8 105 20 99/69 (79) 97 97.8 09/26/24 10:15 120 09/26/24 10:13 97.6 121 100 127/93 (104) 100 97.6 Laboratory Tests Test 09/26/24 10:50 09/26/24 10:56 Lactic Acid Level 1.6 mmol/L (0.4-2.0) White Blood Count 5.0 10^3/uL (4.4-10.8) Medications Medications Dose Ordered Sig/Desean Route Start Time Stop Time Status Last Admin Dose Admin Acetaminophen/ Hydrocodone Bitart 1 tab ONCE ONCE PO 09/26/24 12:30 09/26/24 12:31 DC 09/26/24 15:51 Hydromorphone HCl 0.5 mg ONCE ONCE IV 09/26/24 10:45 09/26/24 10:46 DC 09/26/24 14:22 Piperacillin Sod/ Tazobactam Sod 100 ml @ 100 mls/hr ONCE ONCE IV 09/26/24 12:45 09/26/24 13:44 DC 09/26/24 12:45 Sodium Chloride 1,500 ml @ 1,500 mls/hr ONCE ONCE IV 09/26/24 11:00 09/26/24 11:59 DC 09/26/24 11:35 Vancomycin HCl 250 ml @ 250 mls/hr Q1H IV 09/26/24 13:15 09/26/24 15:14 DC 09/26/24 17:12 Reassessment Post Fluid Date of Reassessment: Sep 26, 2024 Departure 1 Departure Time of Disposition: 17:40 Impression: Primary Impression: Wound infection after surgery Disposition: 09 ADMITTED INPATIENT Condition: Stable Critical Care Note Critical Care Time?: Yes (35 min-critical care time only) Critical care comment: Time spent performing multiple re-evaluations of the patient given his low blood pressure. Speaking to nursing staff regarding therapy. Stability Stability form required: No Heart Score Heart Score: Heart Score Response (Comments) Value History N/A 0 EKG N/A 0 Age N/A 0 Risk Factors N/A 0 Troponin N/A 0 Total 0 DAYSI PEREZ MD Sep 26, 2024 10:51
[2024-09-26] MEDS: SODIUM CHLORIDE 0.9% 1,000 ML IV ONE (11:35)
[2024-09-26] MEDS: SODIUM CHLORIDE 0.9% 1,500 ML IV ONE (11:35)
[2024-09-26 11:37] LABS: Hematocrit 40.7 % (41.0-53.0); Hemoglobin 13.5 g/dL (13.5-17.5); Mean Corpuscular Hemoglobin 32.1 pg (28.0-32.0); Mean Corpuscular Volume 96.3 fL (80.0-100.0); Nucleated Red Blood Cells % 0.0 %
[2024-09-26 11:53] LABS: Alanine Aminotransferase 22 U/L (7-40); Albumin 4.2 g/dL (3.2-4.8); Alkaline Phosphatase 103 U/L (46-116); Anion Gap 6 (5-15); BUN/Creatinine Ratio 13.1 (10.0-20.0); Blood Urea Nitrogen 11 mg/dL (9-23); Calcium 10.3 mg/dL (8.7-10.4); Carbon Dioxide 29 mmol/L (20-31); Chloride 101 mmol/L (98-107); Potassium 4.0 mmol/L (3.5-5.1); Sodium 136 mmol/L (136-145); Total Protein 6.8 g/dL (5.7-8.2)
[2024-09-26 11:57] LABS: Bilirubin, Total 0.2 mg/dL (0.2-1.0); Glucose 170 mg/dL (74-106)
[2024-09-26 12:00] VITALS: O2SAT 98
[2024-09-26] MEDS: PIPERACILLIN-TAZOB 3.375GM 100 ML IV ONE (12:45)
[2024-09-26] MEDS ORDERED: VANCOMYCIN PER PHARMACY 0 MG IV SCH ×2 (12:45→17:00)
[2024-09-26] MEDS: HYDROmorphone HCL 2 MG/ML VL/or syr IV ONE (14:22)
[2024-09-26] MEDS: IOHEXOL 300 MG/ML 100ML BOTTLE IJ ONE (15:07)
[2024-09-26] MEDS: HYDROcodone-ACET 10/325MG TAB PO ONE (15:51)
--- NOTE | 2024-09-26 15:51 | DVH ---
Indication: Rule out abscess Technique: CT axial images of the abdomen and pelvis are obtained with intravenous contrast. Coronal and sagittal reformats were obtained. Radiation Dose Information: CTDI volume is 5.07 mGy. Dose-length product is 261.91 mGy*cm Comparison: CT CT AB PEL WITH IV CON ONLY on DOS: 03/18/24, CT CT AB PEL WITH IV CON ONLY on DOS: FINDINGS: The lung bases demonstrate right lower lobe tree-in-bud nodularity. Right lower lobe nodular lesion m easuring 10 mm. Adrenal glands, spleen unremarkable. Pancreatic parenchymal calcifications and atrophy. No CT eviden ce for cholelithiasis. Dilated common bile duct measuring 10 mm no enhancing hepatic lesion. The kidneys demonstrate no hydronephrosis. Stomach is partially distended. Small bowel loops are moderately distended. Moderate volume stool in the colon. No secondary signs for appendicitis. Abdominal aortic atherosclerotic disease. Bladder distended. No free pelvic fluid. No inguinal lympha denopathy. Mild bilateral sacroiliac degenerative joint disease. Mild thoracolumbar degenerative disc disease.12 2 Soft tissue edema / anasarca. IMPRESSION: Dilated common bile duct measuring 10 mm. Recommend MRCP /MRI abdomen to further characterize. Sequela of chronic pancreatitis. Right lower lobe tree-in-bud nodularity which can be secondary to atypical infection, bronchiolitis. 10 mm right lower lobe nodular lesion. Recommend follow-up per fleischner society criteria. Moderate volume stool within the colon. Atherosclerotic disease. Other findings as described.
[2024-09-26] MEDS ORDERED: ONDANSETRON HCL 4 MG/2 ML VIAL IV PRN (17:00)
[2024-09-26] MEDS: LORazepam 2MG/ML-1ML VIAL IV ONE (17:11)
[2024-09-26] MEDS: VANCOMYCIN 1GM/200ML PM 250 ML IV SCH (17:12)
[2024-09-26] MEDS: SODIUM CHLORIDE 0.9% 1,000 ML IV SCH (17:12)
[2024-09-26 17:16] LABS: Urine Protein, UAD Negative (Negative)
--- NOTE | 2024-09-26 17:17 | DVHHP2 ---
History of Present Illness Reason for Visit: Abdominal pain History of Present Illness Aditya Auguste is a 54-year-old male with past medical history of anxiety, pancreatitis, and mini-Whipple procedure on 08/27/2024 at [place] who presents to the ED with abdominal pain that started last night. Patient also reports that there has been yellowish leakage from his incisional site. Patient will not give me a number describes the pain. He states he is anxious and upset in his nieces calling him in trying to tell him something. Patient denies any chest pain, shortness of breath, fever, chills, lightheadedness, weakness, dizziness, nausea, vomiting, diarrhea, urinary symptoms, recent sick contacts, recent travels, recent ingestion of spoiled food, or recent trauma or injury. Immediately upon examination patient requesting for pain medications. Patient reports that he smokes 8 cigarettes per day. He also states that he only takes medications for his anxiety and stomach. He states he does not take any blood thinners. Patient refusing MRI at this time. States he does not want to go in that machine. Did inform him the necessity and patient is still refuses. Psych: Anxiety Past Medical History Pancreatitis Past Surgical History: Other (Mini-Whipple on 08/27/2024 at [place]) Family History: None Smoke: 1 pack per day ALCOHOL: none Drugs: None Lives: with Family Domestic Violence: Neg Review of Systems Gastrointestinal: Abdominal Pain Allergies: Coded Allergies: NO KNOWN ALLERGIES (Unverified , 02/16/24) Medications Current Medications Medications Dose Ordered Sig/Desean Route Start Time Stop Time Status Last Admin Dose Admin Vancomycin HCl 0 ml @ 0 mls/hr UD IV 09/26/24 12:45 Vancomycin HCl 100 ml @ 100 mls/hr Q12H IV 09/27/24 06:00 Lorazepam 0.5 mg Q8HP PRN IV 09/26/24 17:00 UNV Sodium Chloride 1,000 ml @ 60 mls/hr [id number] IV 09/26/24 17:00 UNV Exam Vital Signs Vital Signs Date Time Temp Pulse Resp B/P (MAP) Pulse Ox O2 Delivery O2 Flow Rate FiO2 09/26/24 14:22 63 20 122/81 09/26/24 11:37 97.8 97 97.8 General Appearance: Alert, Oriented X3, Cooperative, No acute distress HEENT: Atraumatic, PERRLA, EOMI, Mucous membr. moist/pink Respiratory: Clear to auscultation, Normal air movement Cardiovascular: Normal S1, Normal S2, No murmurs Abdominal: Soft Extremities: Normal pulses Neuro: Normal speech, Strength at 5/5 X4 ext, Normal tone, Sensation intact Psych/Mental Status: Mental status NL, Other (Anxious and irritable) Labs/Xrays Labs Test 09/26/24 15:19 09/26/24 11:25 09/26/24 10:56 09/26/24 10:50 Range/Units Troponin I High Sensitivity < 3 L </=54 ng/L White Blood Count 5.0 4.4-10.8 10^3/uL Red Blood Count 4.23 L 4.5-5.90 10^6/uL Hemoglobin 13.5 13.5-17.5 g/dL Hematocrit 40.7 #L 41.0-53.0 % Mean Corpuscular Volume 96.3 80.0-100.0 fL Mean Corpuscular Hemoglobin 32.1 H 28.0-32.0 pg Mean Corpuscular Hemoglobin Concent 33.3 32.0-36.0 g/dL Red Cell Distribution Width 14.3 11.8-14.3 % Platelet Count 342 140-450 10^3/uL Mean Platelet Volume 7.3 6.9-10.8 fL Neutrophils (%) (Auto) 38.7 37.0-80.0 % Lymphocytes (%) (Auto) 48.8 10.0-50.0 % Monocytes (%) (Auto) 7.3 0.0-12.0 % Eosinophils (%) (Auto) 4.1 0.0-7.0 % Basophils (%) (Auto) 1.1 0.0-2.0 % Neutrophils # (Auto) 1.9 1.6-8.6 10 ^3/uL Lymphocytes # (Auto) 2.4 0.4-5.4 10 ^3/uL Monocytes # (Auto) 0.4 0-1.3 10 ^3/uL Eosinophils # (Auto) 0.2 0-0.8 10 ^3/uL Basophils # (Auto) 0.1 0-0.2 10 ^3/uL Nucleated Red Blood Cells 0.0 % Sodium Level 136 136-145 mmol/L Potassium Level 4.0 3.5-5.1 mmol/L Chloride Level 101 98-107 mmol/L Carbon Dioxide Level 29 20-31 mmol/L Anion Gap 6 5-15 Blood Urea Nitrogen 11 9-23 mg/dL Creatinine 0.84 0.700-1.30 mg/dL Glomerular Filtration Rate Calc 103 >90 mL/min BUN/Creatinine Ratio 13.1 10.0-20.0 Serum Glucose 170 H 74-106 mg/dL Calcium Level 10.3 8.7-10.4 mg/dL Total Bilirubin 0.2 0.2-1.0 mg/dL Aspartate Amino Transferase (AST) 21 13-40 U/L Alanine Aminotransferase (ALT) 22 7-40 U/L Alkaline Phosphatase 103 46-116 U/L Total Protein 6.8 5.7-8.2 g/dL Albumin 4.2 3.2-4.8 g/dL Lactic Acid Level 1.6 0.4-2.0 mmol/L SEPSIS Sepsis Screen Date sepsis recognized/suspect: Sep 26, 2024 Time Sepsis recognized/suspect: 1009 Recent Procedure: Yes On Antibiotic Therapy: No Respiratory Rate >20: No Heart Rate >90: Yes Temp<36 C (96.8 F) or >38.3 C: No SBP <90 or MAP <65 mmHG: No New Acute Mental Status Change: No Is the patient on CPAP, BIPAP,: No Physician Orders Urinalysis (09/26/24 10:39) Blood Culture (09/26/24 10:39) Wound Culture W/ Gs (09/26/24 10:39) Sepsis Initial Assessment ONCE (09/26/24 10:39) Sepsis Reassessment After Flui (09/26/24 10:40) Ct Ab Pel With Iv Con Only (09/26/24 10:39) Initiate Sepsis Protocol (09/26/24 10:39) Vancomycin Per Pharmacy (09/26/24 12:45) Place Under Ed Observation (09/26/24 13:14) Mrcp Mri (09/26/24 16:55) Vancomycin 750mg Kit (Vancomycin Hcl) (09/27/24 06:00) Vancomycin,Trough (09/28/24 05:00) Creatinine (09/28/24 05:00) Vancomycin Per Pharmacy Protoc (09/28/24 05:00) Lorazepam 2mg/Ml Inj (Ativan Inj) (09/26/24 17:15) Lorazepam 2mg/Ml Inj (Ativan Inj) (09/26/24 17:00) Admit (09/26/24 16:57) Allergies (09/26/24 16:57) Code Status (09/26/24 16:57) Sodium Chloride 0.9% (09/26/24 17:00) Ondansetron Hcl (Zofran) (09/26/24 17:00) Complete Blood Count (09/27/24 04:00) Comprehensive Metabolic Panel (09/27/24 04:00) Sequential Compression Device (09/26/24 ) Vancomycin Per Pharmacy (09/26/24 17:00) Piperacillin-Tazob 3.375gm (Zosyn 3.375g (09/26/24 22:00) Multiple Vitamin Tablet (Mvi Tab) (09/27/24 10:00) Sucralfate Tab (Carafate Tab) (09/26/24 18:00) (Nf) Ethambutol Hcl (09/27/24 10:00) (Nf) Folic Acid (09/27/24 10:00) (Nf) Magnesium Oxide (True Magnesium Oxi (09/27/24 10:00) Vital Signs Date Time Temp Pulse Resp B/P (MAP) Pulse Ox O2 Delivery O2 Flow Rate FiO2 09/26/24 14:22 63 20 122/81 09/26/24 11:37 97.8 105 20 99/69 (79) 97 97.8 09/26/24 10:15 120 09/26/24 10:13 97.6 121 100 127/93 (104) 100 97.6 Laboratory Tests Test 09/26/24 10:50 09/26/24 10:56 Lactic Acid Level 1.6 mmol/L (0.4-2.0) White Blood Count 5.0 10^3/uL (4.4-10.8) Medications Medications Dose Ordered Sig/Desean Route Start Time Stop Time Status Last Admin Dose Admin Acetaminophen/ Hydrocodone Bitart 1 tab ONCE ONCE PO 09/26/24 12:30 09/26/24 12:31 DC 09/26/24 15:51 1 TAB Hydromorphone HCl 0.5 mg ONCE ONCE IV 09/26/24 10:45 09/26/24 10:46 DC 09/26/24 14:22 0.5 MG Piperacillin Sod/ Tazobactam Sod 100 ml @ 100 mls/hr ONCE ONCE IV 09/26/24 12:45 09/26/24 13:44 DC 09/26/24 12:45 100 MLS/HR Sodium Chloride 1,500 ml @ 1,500 mls/hr ONCE ONCE IV 09/26/24 11:00 09/26/24 11:59 DC 09/26/24 11:35 1,500 MLS/HR Assessment/Plan Assessment/Plan Assessment Intractable Abdominal pain rule out choledocholithiasis Tobacco use Hyperglycemia History of mini-Whipple on August 27, 2024 at [place] History of anxiety History of pancreatitis Plan Admit to med surge Antiemetics Pain management Wound culture with Gram stain Wound consult IV antibiotics-vancomycin +Zosyn NS 2.5 L given ED EKG Troponin noted negative x3 CT abdomen and pelvis noted Lactic level UA Blood culture Hemoglobin A1c ISS and Accu-Cheks UA UDS MRCP IV fluids Home medications reconciled DVT prophylaxis-not indicated patient ambulating PUD prophylaxis-PPIs Discussed plan of care with patient and nurse Counseled patient on cessation of tobacco use [id number] Behavior change smoking greater than 10 minutes about use of other options also gave option of nicotine patch 34800 Preventive counseling healthy eating habits, physical activity, and regular checkups Plan discussed with: Patient My Orders Orders - NEYMAR GOULD [employer] WORK[employer] Procedure Category Date Status Time Mrcp Mri MRI 09/26/24 Logged 16:55 Lorazepam 2mg/Ml Inj PHA 09/26/24 In Process (Ativan Inj) 17:15 Lorazepam 2mg/Ml Inj PHA 09/26/24 Logged (Ativan Inj) 17:00 Admit ADMIT 09/26/24 Transmitted 16:57 Allergies JAMES 09/26/24 In Process 16:57 Code Status CODE 09/26/24 Transmitted 16:57 Sodium Chloride 0.9% PHA 09/26/24 Logged 17:00 Ondansetron Hcl PHA 09/26/24 Logged (Zofran) 17:00 Complete Blood Count LAB 09/27/24 Verified 04:00 Comprehensive LAB 09/27/24 Verified Metabolic Panel 04:00 Sequential JAMES 09/26/24 In Process Compression Device Vancomycin Per PHA 09/26/24 Logged Pharmacy 17:00 Piperacillin-Tazob PHA 09/26/24 Logged 3.375gm (Zosyn 3.375g 22:00 Multiple Vitamin PHA 09/27/24 Transmitted Tablet (Mvi Tab) 10:00 Sucralfate Tab PHA 09/26/24 Transmitted (Carafate Tab) 18:00 (Nf) Ethambutol Hcl PHA 09/27/24 Transmitted 10:00 (Nf) Folic Acid PHA 09/27/24 Transmitted 10:00 (Nf) Magnesium Oxide PHA 09/27/24 Transmitted (True Magnesium Oxi 10:00 Date of Service: Sep 26, 2024 Billing Provider: NEYMAR GOULD Common Visit Codes: [id number] INP/OBS CARE (HIGH) Secondary Visit Codes: [id number] COUNSELING IND, 96873-BAPMS CHNG S MOKING >10MIN NEYMAR GOULD Sep 26, 2024 17:17
[2024-09-26] MEDS ORDERED: ETHAMBUTOL HCL 400 MG TAB PO SCH (17:29)
[2024-09-26] MEDS: SUCRALFATE 1 GM TAB PO SCH (18:48)
[2024-09-26 19:40] VITALS: PULSE 87; RESP 16; O2SAT 100
[2024-09-26 19:43] LABS: Urine Protein, UAD Negative (Negative)
[2024-09-26 19:45] LABS: Opiate Scree,Urine Pos (NEGATIVE)
[2024-09-26 19:55] LABS: Amphetamine Screen, Urine Neg (NEGATIVE); Barbiturate Scree,Urine Neg (NEGATIVE); Benzodiazephine Screen, Urine Neg (NEGATIVE); Cannabinoid Screen, Urine Neg (NEGATIVE); Cocaine Screen, Urine Neg (NEGATIVE); Phencyclidine Screen, Urine Neg (NEGATIVE)
[2024-09-26] MEDS: PIPERACILLIN-TAZOB 3.375GM 100 ML IV SCH (20:14)
[2024-09-26] MEDS: MORPHINE SULFATE INJ 2 MG/ml SYRG IV PRN (21:12)
[2024-09-26 21:40] VITALS: BP 119/89; PULSE 75; RESP 18; TEMP 97.6; O2SAT 98
[2024-09-26] MEDS: HYDROcodone-ACET 5/325MG TAB PO PRN (23:58)
[2024-09-27] VITALS (8 sets, daily range): BP systolic 110–120; BP diastolic 68–75; PULSE 61–79; RESP 16–17; TEMP 97.5–98.6; O2SAT 95–100
[2024-09-27] MEDS: LORazepam 2MG/ML-1ML VIAL IV PRN (01:20)
[2024-09-27] MEDS: VANCOMYCIN 750mg/150ml 150 ML IV SCH (06:03)
[2024-09-27 07:02] LABS: Hematocrit 32.6 % (41.0-53.0); Hemoglobin 11.0 g/dL (13.5-17.5); Mean Corpuscular Hemoglobin 32.4 pg (28.0-32.0); Mean Corpuscular Volume 96.6 fL (80.0-100.0); Nucleated Red Blood Cells % 0.0 %
[2024-09-27 07:29] LABS: Alanine Aminotransferase 15 U/L (7-40); Albumin 3.3 g/dL (3.2-4.8); Alkaline Phosphatase 79 U/L (46-116); Anion Gap 6 (5-15); Calcium 9.1 mg/dL (8.7-10.4); Carbon Dioxide 26 mmol/L (20-31); Chloride 106 mmol/L (98-107); Potassium 4.0 mmol/L (3.5-5.1); Sodium 138 mmol/L (136-145)
[2024-09-27 07:30] LABS: Bilirubin, Total < 0.2 mg/dL (0.2-1.0); Blood Urea Nitrogen 8 mg/dL (9-23); Glucose 107 mg/dL (74-106); Total Protein 5.4 g/dL (5.7-8.2)
[2024-09-27 07:33] LABS: BUN/Creatinine Ratio 11.4 (10.0-20.0)
[2024-09-27] MEDS: MAGNESIUM OXIDE 400 MG TAB PO SCH (11:01)
[2024-09-27] MEDS: FOLIC ACID 1 MG TAB PO SCH (11:01)
[2024-09-27] MEDS: MULTIPLE VITAMIN TAB PO SCH (11:01)
[2024-09-27] MEDS: PANTOPRAZOLE 40 MG/10 ML VIAL INJ IV SCH (11:01)
[2024-09-27] MEDS: CEFEPIME 1GM/ 50ML 50 ML IV SCH (13:16)
[2024-09-27] MEDS: ALBUTEROL SULF 2.5 MG/0.5ML(0.5%) NEB SOLN NEB ONE (13:57)
[2024-09-27] MEDS: IPRATROPIUM BROM 0.5 MG/2.5ML INH SOL NEB ONE (13:57)
--- NOTE | 2024-09-27 16:02 | DVHPNRES ---
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 The patient presented to the ED with mild abdominal tenderness and reporting yellowish leakage from his incision site from previous Whipple procedure. Upon admission, initial labs showed unremarkable CBC with a slight acute anemia with an hemoglobin of 11.0, CMP was grossly unremarkable. Troponins came back negative. Upon my examination, patient has a vertical incision in the mid of the abdomen and in the distal end of the lower aspect of the incision there was mild yellowish secretion at the current gauze but when checked it was dry at the abdomen. There was no significant tenderness to palpation throughout all the abdomen. Initial CT of the abdomen with contrast showed bilateral common bile duct measuring 10 mm, sequela of chronic pancreatitis and a 10 mm right lower lobe nodular lesion. The patient was initially placed NPO and was admitted for further assessment and management. Patient seen and examined at bedside. Upon my examination, there was very mild yellowish secretion in in the white gauze that was covering the vertical incision of the abdomen. When gauze was removed, surgical incision was grossly clear and dry without any evidence of active erythema or possible infection. There was no significant tenderness to palpation throughout all of the abdomen except at the level of the incision. Patient is currently on room air but reports asthma and was feeling chest tightness for which albuterol and ipratropium med nebs were ordered once. Patient was initially on vancomycin and Zosyn but then was switched to cefepime and metronidazole and we continued vancomycin. Patient was hungry and able to eat for which we progress diet and is currently on regular diet. ROS Constitutional: Denies weight loss, fever and chills. HEENT: Denies changes in vision and hearing. Respiratory: Denies shortness of breath and cough Cardiovascular: Denies chest discomfort or palpitations GI: Denies abdominal pain, nausea, vomiting and diarrhea. Reports mild secretion from surgical incision. : Denies dysuria and urinary frequency. Musculoskeletal: Denies myalgias and joint pain Skin: Denies rash and pruritus. Neurological: Denies dizziness, headache, vision or hearing problems Objective vital signs Vital Sign Date Time Temp Pulse Resp B/P (MAP) Pulse Ox O2 Delivery O2 Flow Rate FiO2 09/27/24 14:03 78 16 100 09/27/24 13:58 97.5 118/68 (85) 97.5 09/27/24 13:57 Room Air* 0 21 Total Intake and Output 09/26/24 09/26/24 09/27/24 15:00 23:00 07:00 Intake Total 60 ml 400 ml Output Total 300 ml Balance 60 ml 100 ml medications Current Medications Medications Dose Ordered Sig/Desean Route Start Time Stop Time Status Last Admin Dose Admin Vancomycin HCl 150 ml @ 150 mls/hr Q12H IV 09/27/24 06:00 09/27/24 06:03 150 MLS/HR Lorazepam 0.5 mg Q8HP PRN IV 09/26/24 17:00 09/27/24 11:01 0.5 MG Sodium Chloride 1,000 ml @ 60 mls/hr [id number] IV 09/26/24 17:00 09/26/24 17:12 60 MLS/HR Ondansetron HCl 4 mg Q4HP PRN IV 09/26/24 17:00 Vancomycin HCl 0 ml @ 0 mls/hr UD IV 09/26/24 17:00 Multivitamins 1 tab DAILY PO 09/27/24 10:00 09/27/24 11:01 1 TAB Sucralfate 1 gm QID PO 09/26/24 18:00 09/27/24 13:12 1 GM Ethambutol HCl 800 mg DAILY PO 09/26/24 17:29 Hold Folic Acid 1 mg DAILY PO 09/27/24 10:00 09/27/24 11:01 1 MG Magnesium Oxide 400 mg DAILY PO 09/27/24 10:00 09/27/24 11:01 400 MG Pantoprazole Sodium 40 mg DAILY IV 09/27/24 10:00 09/27/24 11:01 40 MG Acetaminophen/ Hydrocodone Bitart 1 tab Q6HPRN PRN PO 09/26/24 21:00 09/26/24 23:58 1 TAB Morphine Sulfate 2 mg Q4HPRN PRN IV 09/26/24 21:00 09/27/24 11:15 2 MG Cefepime HCl 50 ml @ 12.5 mls/hr Q8HR IV 09/27/24 14:00 09/27/24 13:16 12.5 MLS/HR Metronidazole 100 ml @ 100 mls/hr Q8HR IV 09/27/24 14:00 09/27/24 13:12 100 MLS/HR Examination Physical Examination General: Patient alert and oriented in person, place and time. Patient following commands. HEENT: Normocephalic, atraumatic, moist mucous membranes Respiratory/pulmonary: Decreased breath sounds bilaterally, no wheezes or crackles present at this time. Cardiovascular: Normal heart sounds S1 and S2 with no associated murmurs Abdomen: Abdomen nondistended, there is a vertical surgical incision in the middle of the abdomen covered with gauze that was slightly in with yellowish secretion. When gauze was removed, abdomen was dry and clean with no evidence of erythema or purulent secretion at this time. Extremities: There is no peripheral edema present at the lower extremities. Skin: No rashes or pruritus, there is no sacral edema present at this time. Neurological: Intact cranial nerves with no focal neurologic deficits laboratory and microbiology Laboratory Tests 09/27/24 06:31 Test 09/27/24 06:31 Range/Units Serum Glucose 107 H 74-106 mg/dL Microbiology Date/Time Source Procedure Growth Status 09/26/24 15:35 Abdomen Gram Stain Pending Resulted 09/26/24 15:35 Abdomen Wound Culture - Preliminary Resulted 09/26/24 11:00 Blood Blood Culture - Preliminary NO GROWTH AFTER 24 HOURS OF INCUBATION. Resulted Problem List/Assessment/Plan Problem List/Assessment/Plan Assessment/plan Possible post-surgical incisional infection performed at [facility] on 08/27/2024 Acute abdominal pain, rule out surgical incision infection Possible common bile duct dilation, possibly expected after whipple procedure -CT of the abdomen showed dilated common bile duct measuring 10 mm, sequela of chronic pancreatitis and 10 mm right lower lobe nodular lesion -patient refused MRCP and MRI of the abdomen -patient was placed initially NPO, diet was progress to regular diet. Patient tolerating without complications -we will monitor CBC tomorrow -patient was initially on IV vancomycin and Zosyn, we will stop IV Zosyn -start IV metronidazole -start IV cefepime -continue vancomycin -start pantoprazole IV 40 mg daily Acute chest tightness in the setting of controlled asthma -ordered albuterol and ipratropium med nebs once -patient is currently on room air -we will monitor saturation Acute mild anemia, R/O iron deficiency or GI bleeding -ordered iron panel -ordered ferritin -order stool occult blood test Anxiety disorder -currently patient is stable not requiring any medicine -monitor symptoms Chronic pancreatitis -lipase was ordered -patient has no active pain at this time Status post Whipple procedure at [facility] on 08/27/2024 -patient needs to follow up with surgeon at [facility] DVT prophylaxis -Lovenox 40 mg sc daily Goals of care discussed with the patient at bedside for >35 min, FULL CODE Plan discussed with Dr. Manzanares Plan discussed with: Patient My Orders My Orders Orders - MARISELA LIM Procedure Category Date Status Time Cefepime 1gm/ 50ml PHA 09/27/24 In Process (Maxipime 1gm/50ml) 14:00 Metronidazole PHA 09/27/24 In Process 500mg/100ml (Flagyl 14:00 Cover Wound With Dry JAMES 09/27/24 In Process Dressing 11:58 Dietary Evaluation Review Recommendations by RD: Protein Supplementation Comments: 1) Initiate Pro-Stat @ 30 mL qd 2) If patient remains NPO > 7 days, consider EN/TPN to meet at least 75% of estimated daily needs 3) Collect HbA1C d/t hyperglycemia 4) Advance to 60g CCHO diet when medically feasible 5) Initiate Glucerna bid when medically feasible 6) Follow-up with gastroenterology 7) Continue to monitor I&O, labs, and skin integrity Expected Outcomes/Goals: 1) patient to receive nutrition support within 7 days 2) wound and labs to improve 3) diet to advance 4) f/u in 3-5 days MARISELA LIM RESIDENT Sep 27, 2024 16:02
[2024-09-27 16:20] LABS: Iron 34.0 ug/dL (65-175)
[2024-09-27 16:23] LABS: Total Iron Binding Capacity 219.0 ug/dL (250-425)
--- NOTE | 2024-09-27 17:04 | DVHDSRES ---
Discharge Summary Date of Admission Resident Creating Document: MARISELA LIM RESIDENT Sep 26, 2024 at 16:57 Date of Discharge: Sep 27, 2024 Admitting Diagnosis Serosanguineous fluid leakage from post surgical incision Wounds: Patient has a pus surgical vertical incision in the middle of the abdomen after a Whipple procedure performed last month. Labs/Diagnostic Data: Laboratory Results Test 09/27/24 06:31 09/26/24 19:00 09/26/24 15:19 09/26/24 10:50 White Blood Count 4.7 10^3/uL (4.4-10.8) Red Blood Count 3.38 10^6/uL (4.5-5.90) Hemoglobin 11.0 g/dL (13.5-17.5) Hematocrit 32.6 % (41.0-53.0) Mean Corpuscular Volume 96.6 fL (80.0-100.0) Mean Corpuscular Hemoglobin 32.4 pg (28.0-32.0) Mean Corpuscular Hemoglobin Concent 33.6 g/dL (32.0-36.0) Red Cell Distribution Width 14.2 % (11.8-14.3) Platelet Count 256 10^3/uL (140-450) Mean Platelet Volume 7.1 fL (6.9-10.8) Neutrophils (%) (Auto) 38.9 % (37.0-80.0) Lymphocytes (%) (Auto) 45.8 % (10.0-50.0) Monocytes (%) (Auto) 7.9 % (0.0-12.0) Eosinophils (%) (Auto) 6.7 % (0.0-7.0) Basophils (%) (Auto) 0.7 % (0.0-2.0) Neutrophils # (Auto) 1.8 10 ^3/uL (1.6-8.6) Lymphocytes # (Auto) 2.1 10 ^3/uL (0.4-5.4) Monocytes # (Auto) 0.4 10 ^3/uL (0-1.3) Eosinophils # (Auto) 0.3 10 ^3/uL (0-0.8) Basophils # (Auto) 0 10 ^3/uL (0-0.2) Nucleated Red Blood Cells 0.0 % Sodium Level 138 mmol/L (136-145) Potassium Level 4.0 mmol/L (3.5-5.1) Chloride Level 106 mmol/L (98-107) Carbon Dioxide Level 26 mmol/L (20-31) Anion Gap 6 (5-15) Blood Urea Nitrogen 8 mg/dL (9-23) Creatinine 0.70 mg/dL (0.700-1.30) Glomerular Filtration Rate Calc 109 mL/min (>90) BUN/Creatinine Ratio 11.4 (10.0-20.0) Serum Glucose 107 mg/dL (74-106) Calcium Level 9.1 mg/dL (8.7-10.4) Iron Level 34 ug/dL (65-175) Total Iron Binding Capacity 219 ug/dL (250-425) Percent Iron Saturation 15.5 % (20-55) Ferritin 49.4 ng/mL (22-322) Total Bilirubin < 0.2 mg/dL (0.2-1.0) Aspartate Amino Transferase (AST) 17 U/L (13-40) Alanine Aminotransferase (ALT) 15 U/L (7-40) Alkaline Phosphatase 79 U/L (46-116) Total Protein 5.4 g/dL (5.7-8.2) Albumin 3.3 g/dL (3.2-4.8) Lipase 28 U/L (12-53) Urine Color Light-yellow (Yellow) Urine Clarity Clear (Clear) Urine pH 6.0 (5.0-9.0) Urine Specific [place] 1.050 (1.001-1.035) Urine Protein Negative (Negative) Urine Ketones Negative (Negative) Urine Blood Negative /uL (Negative) Urine Nitrite Negative (Negative) Urine Bilirubin Negative (Negative) Urine Urobilinogen Normal mg/dL (Negative) Urine Leukocyte Esterase Negative /uL (Negative) Urine RBC 1 /hpf (0 - 3) Urine Microscopic WBC < 1 /HPF (0-3) Urine Squamous Epithelial Cells None seen /hpf (<5) Urine Bacteria None seen /hpf (None Seen) Urine Glucose Normal mg/dL (Normal) Urine Opiates Screen Pos (NEGATIVE) Urine Fentanyl Screen Neg (NEGATIVE) Urine Barbiturates Screen Neg (NEGATIVE) Urine Phencyclidine Screen Neg (NEGATIVE) Urine Amphetamines Screen Neg (NEGATIVE) Urine Benzodiazepines Screen Neg (NEGATIVE) Urine Cocaine Screen Neg (NEGATIVE) Urine Cannabinoids Screen Neg (NEGATIVE) Troponin I High Sensitivity < 3 ng/L (</=54) Lactic Acid Level 1.6 mmol/L (0.4-2.0) Other Laboratory Tests 09/27/24 06:31 Brief Hx & Hospital Course: This is a 54-year-old male with past medical history of chronic pancreatitis, anxiety disorder, mini- Whipple procedure performed on 08/27/24 at [facility] due to pancreatic stones 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 The patient presented to the ED with mild abdominal tenderness and reporting yellowish leakage from his incision site from previous Whipple procedure. Upon admission, initial labs showed unremarkable CBC with a slight acute anemia with an hemoglobin of 11.0, CMP was grossly unremarkable. Troponins came back negative. Upon my examination, patient has a vertical incision in the mid of the abdomen and in the distal end of the lower aspect of the incision there was mild yellowish secretion at the current gauze but when checked it was dry at the abdomen. There was no significant tenderness to palpation throughout all the abdomen. Initial CT of the abdomen with contrast showed bilateral common bile duct measuring 10 mm, sequela of chronic pancreatitis and a 10 mm right lower lobe nodular lesion. The patient was initially placed NPO and then was further progress to regular diet. Patient was started on IV antibiotics. After examining incision in more detail, looks like serosanguineous fluid is coming out of the incision most likely expected after surgery. Surgeon at our facility suggested to follow up with current surgeon as outpatient. Patient is currently denying abdominal tenderness, fever/chills, shortness of breath, or any other associated symptoms. Patient is tolerating regular diet and is willing to go home and follow-up with surgeon at [facility] as an outpatient. We will discharge the patient and recommend him to follow up with the PCP in one week and with surgeon on October 05, 2024. Patient agrees and understands the plan. Discharge plan -patient already completed antibiotic treatment per previous surgeon at [facility] -no current active signs of infection at this time -continue regular diet -follow-up precautions, if there is fever/chills, erythema or purulent fluid coming out from the incision, please come back to the ED -follow-up with surgeon at [facility] as outpatient on October 05, 2024 -follow-up with his PCP in one week. Consults/Reason for consult none Operations or Procedures Indication: Rule out abscess Technique: CT axial images of the abdomen and pelvis are obtained with intravenous contrast. Coronal and sagittal reformats were obtained. Radiation Dose Information: CTDI volume is 5.07 mGy. Dose-length product is 261.91 mGy*cm Comparison: CT CT AB PEL WITH IV CON ONLY on DOS: 03/18/24, CT CT AB PEL WITH IV CON ONLY on DOS: 02/16/24 FINDINGS: The lung bases demonstrate right lower lobe tree-in-bud nodularity. Right lower lobe nodular lesion measuring 10 mm. Adrenal glands, spleen unremarkable. Pancreatic parenchymal calcifications and atrophy. No CT evidence for cholelithiasis. Dilated common bile duct measuring 10 mm no enhancing hepatic lesion. The kidneys demonstrate no hydronephrosis. Stomach is partially distended. Small bowel loops are moderately distended. Moderate volume stool in the colon. No secondary signs for appendicitis. Abdominal aortic atherosclerotic disease. Bladder distended. No free pelvic fluid. No inguinal lymphadenopathy. Mild bilateral sacroiliac degenerative joint disease. Mild thoracolumbar degenerative disc disease.122 Soft tissue edema / anasarca. IMPRESSION: Dilated common bile duct measuring 10 mm. Recommend MRCP /MRI abdomen to further characterize. Sequela of chronic pancreatitis. Right lower lobe tree-in-bud nodularity which can be secondary to atypical infection, bronchiolitis. 10 mm right lower lobe nodular lesion. Recommend follow-up per fleischner society criteria. Moderate volume stool within the colon. Atherosclerotic disease. Other findings as described. Condition at Discharge: Stable Final Diagnosis/Problems List Possible post-surgical incisional infection performed at [facility] on 08/27/2024 Acute abdominal pain, rule out surgical incision infection Possible common bile duct dilation, possibly expected after whipple procedure Acute chest tightness in the setting of controlled asthma Acute mild anemia, R/O iron deficiency or GI bleeding Anxiety disorder Chronic pancreatitis Status post Whipple procedure at [facility] on 08/27/2024 Discharge Disposition: Home Discharge Instruct/Medications Diet: Regular Activity: No Restrictions, As Tolerated Follow Up/Referral: Follow-up with his PCP in one week Follow-up with surgeon at [facility] on October 05, 2024 Medications: Continue home medications Scheduled Acetaminophen (Acetaminophen), 650 MG PO Q4HR Amoxicillin & Pot Clavulanate (Augmentin Tablet), 875 MG PO BID Azithromycin (Azithromycin), 500 MG PO DAILY, (Reported) Ethambutol Hcl (Ethambutol Hcl), 800 MG PO DAILY, (Reported) Folic Acid (Folic Acid), 1 TAB PO DAILY, (Reported) Magnesium Oxide (True Magnesium Oxide), 1 TAB PO DAILY, (Reported) Multiple Vitamin (One-Daily Multi-Vitamin), 1 TAB PO DAILY, (Reported) Multiple Vitamin (Multivitamin), 1 TAB PO DAILY, (Reported) Oxycodone Hcl (OxyCONTIN ER Tablet), 1 TAB PO BID Oxycodone W/ Acetaminophen (Percocet 5/325MG), 1 TAB PO QID Rifampin (Rifampin), 150 MG PO DAILY, (Reported) Sucralfate (Sucralfate), 1 TAB PO QID, (Reported) Scheduled PRN Hydrocodone-Acetaminophen (Hydrocodone Bitartrate/AC 5-325 mg), 1 TAB PO QID PRN Ibuprofen (Ibuprofen), 800 MG PO Q8HP PRN Ibuprofen Micronized (Ibuprofen), 800 MG PO Q8HP PRN Miscellaneous Medications Pancreatic Enzymes (Creon), PO, (Reported) Rivaroxaban (Xarelto), PO, (Reported) Discharge Statement: "Patient was advised to return to the ER or call 911 if any headaches, dizziness, shortness of breath, chest pain, abdominal pain, bleeding, fevers, or worsening of medical condition. Patient was counseled about treatment plan, medications, possible side effects, patientverbalized understanding. All questions were answered to the best of my ability. This discharge took greater then 30 minutes in planning, reviewing documentation, counseling the patient, and discussing with other team members." ASSESSMENT ASSESSMENT Assessment Date of Service: Sep 27, 2024 Billing Provider: ARMIN PORRAS MD Common Visit Codes: 01167-VPY/OBS DISCH DAY >30min MARISELA LIM Sep 27, 2024 17:04 ARMIN PORRAS MD Sep 28, 2024 21:45
[2024-09-28] MEDS ORDERED: ENOXAPARIN SOD 40 MG/0.4 ML SYRINGE SC SCH (10:00)
== END 2024-09-27 18:20 | disposition home or self-care (01) | DRG 721 ==
LOC: ER 10:02 → OVERFLOW 16:57 → WEST WING 21:40
DX: T81.41XA Infection following a procedure, superficial incisional surgical site, initial encounter (principal); K83.8 Other specified diseases of biliary tract; K92.2 Gastrointestinal hemorrhage, unspecified; D50.9 Iron deficiency anemia, unspecified; F17.210 Nicotine dependence, cigarettes, uncomplicated; F41.9 Anxiety disorder, unspecified; J45.909 Unspecified asthma, uncomplicated; K86.1 Other chronic pancreatitis; R73.9 Hyperglycemia, unspecified; Z79.899 Other long term (current) drug therapy; Y83.8 Other surgical procedures as the cause of abnormal reaction of the patient, or of later complication, without mention of misadventure at the time of the procedure; Y92.89 Other specified places as the place of occurrence of the external cause
CPT/HCPCS: 36415; 74177; 80053; 80307; 81001; 82728; 83540; 83550; 83605; 83690; 84484; 85025; 87040; 87205; 93005; 94640; 96361; 96365; 99291; G0378; J2470; J2543; J3490

== ENCOUNTER 2024-10-09 15:27 | Inpatient (IN) | payer MEDICAID ==
[~2024-10-09] VITALS: Ht 167.6 cm; Wt 47.4 kg
--- NOTE | 2024-10-09 16:19 | ED.PDOC ---
GI ASSESSMENT HPI Comments This is a 54 year old male presenting to the ED with chief complaint of abdominal pain s/p surgery. Patient reports that he had a recent transfer to [facility] for Hiatal hernia repair. Patient relays that his recovery has gone well until today where he suddenly began to experience pain to his surgical sit at the epigastric region. Patient denies any N/V/D, fever, chills, or chest pain. Chief Complaint: Body Pain Time Seen by MD: 16:16 Primary Care Provider: MARK Reviewed Notes: Nurses Notes, Medications, Allergies Allergies: Coded Allergies: NO KNOWN ALLERGIES (Unverified , 02/16/24) Home Meds Active Scripts Amoxicillin & Pot Clavulanate (AUGMENTIN TABLET) 875 Mg Tb, 875 MG PO BID for 5 Days, #10 TAB Prov:IDA PAIGE MD 06/16/24 Ibuprofen Micronized (Ibuprofen) 800 Mg Tab, 800 MG PO Q8HP PRN, #20 TAB Prov:LIDIA GRAY PAC 06/12/24 Oxycodone Hcl (OxyCONTIN ER Tablet) 20 Mg Tb, 1 TAB PO BID for 5 Days, #10 TAB Prov:COREY SHEPHERD MD 04/21/24 Acetaminophen (Acetaminophen) 325 Mg Tab, 650 MG PO Q4HR for 30 Days, #360 TAB Prov:EVE MARTÍNEZ RESIDENT 04/21/24 Ibuprofen (Ibuprofen) 800 Mg Tab, 800 MG PO Q8HP PRN for 10 Days, #30 TAB Prov:EVE MARTÍNEZ RESIDENT 04/21/24 Hydrocodone-Acetaminophen (Hydrocodone Bitartrate/AC 5-325 mg) 1 Tab Tab, 1 TAB PO QID PRN, #30 TAB Prov:[place] BOWMAN MD 03/15/24 Oxycodone W/ Acetaminophen (Percocet 5/325MG) 1 Tab Tb, 1 TAB PO QID for 5 Days, #20 TAB Prov:BERENICE MANNING NP 02/18/24 Reported Medications Multiple Vitamin (Multivitamin) 1 Tab Tab, 1 TAB PO DAILY 05/14/24 Folic Acid (Folic Acid) 1 Mg Tab, 1 TAB PO DAILY 03/12/24 Multiple Vitamin (One-Daily Multi-Vitamin) 1 Tab Tab, 1 TAB PO DAILY 03/12/24 Pancreatic Enzymes (Creon) 12,000 Unt Cap, PO 02/17/24 Sucralfate (Sucralfate) 1 Gm Tab, 1 TAB PO QID 02/16/24 Rivaroxaban (Xarelto) 2.5 Mg Tab, PO 02/16/24 Magnesium Oxide (True Magnesium Oxide) 400 Mg Tab, 1 TAB PO DAILY 02/16/24 Ethambutol Hcl (Ethambutol Hcl) 100 Mg Tab, 800 MG PO DAILY 02/16/24 Rifampin (Rifampin) 150 Mg Cap, 150 MG PO DAILY 02/16/24 Azithromycin (Azithromycin) 250 Mg Tab, 500 MG PO DAILY 02/16/24 Information Source: Patient Mode of Arrival: Ambulatory Timing: Days Duration: Since onset Prehospital treatment: None Quality: Sharp Vomitus: None Stool: Normal Severity: Severe Recent: None Recent Hx of: Abdominal Surgery Pain Location: Epigastric Modifying Factors: Nothing Associated sign and symptoms: Nausea, Abdominal Pain Past Medical History PAST MEDICAL HISTORY: Anxiety Surgical History: Hernia Repair Family History Family History: Reviewed,noncontributory to illness, Unknown Social History Smoker: Cigarettes Alcohol: Sober Drugs: Denies Drug Use Lives In: Home Constitutional: denies: chills, diaphoresis, fatigue, fever, malaise, sweats, weakness, others EENTM: denies: blurred vision, double vision, ear bleeding, ear discharge, ear drainage, ear pain, ear ringing, eye pain, eye redness, hearing loss, mouth pain, mouth swelling, nasal discharge, nose bleeding, nose congestion, nose pain, photophobia, tearing, throat pain, throat swelling, voice changes, others Respiratory: denies: cough, hemoptysis, orthopnea, SOB at rest, shortness of breath, SOB with excertion, stridor, wheezing, others Cardiovascular: denies: chest pain, dizzy spells, diaphoresis, Dyspnea on exertion, edema, irregular heart beat, left arm pain, lightheadedness, palpitations, PND, syncope, others Gastrointestinal: reports: abdominal pain, nausea; denies: abdomen distended, blood streaked bowels, constipated, diarrhea, dysphagia, difficulty swallowing, hematemesis, melena, poor appetite, poor fluid intake, rectal bleeding, rectal pain, vomiting, others Genitourinary: denies: burning, dysuria, flank pain, frequency, hematuria, incontinence, penile discharge, penile sore, pain, testicle pain, testicle swelling, urgency, others Neurological: denies: dizziness, fainting, headache, left sided numbness, left sided weakness, numbness, paresthesia, pre-existing deficit, right sided numbness, right sided weakness, seizure, speech problems, tingling, tremors, weakness, others Musculoskeletal: denies: back pain, gout, joint pain, joint swelling, muscle pain, muscle stiffness, neck pain, others Integumetry: denies: bruises, change in color, change in hair/nails, dryness, laceration, lesions, lumps, rash, wounds, others Allergic/Immunocompromised: denies: Difficulty Healing, Frequent Infections, Hives, Itching, others Hematologic/Lymphatic: denies: anemia, blood clots, easy bleeding, easy bruising, swollen glands, others Endocrine: denies: excessive hunger, excessive sweating, excessive thirst, excessive urination, flushing, intolerance to cold, intolerance to heat, unexplained weight gain, unexplained weight loss, others Psychiatric: denies: anxiety, bipolar disorder, depression, hopeless, panic disorder, schizophrenia, sleepless, suicidal, others All Other Systems: Reviewed and Negative Physical Exam General Appearance: Moderate Distress (Due to abdominal pain concerns.), Normal HEENT: Normal ENT Inspection, Pharynx Normal, TMs Normal Neck: Full Range of Motion, Non-Tender, Normal, Normal Inspection Respiratory: Chest Non-Tender, Lungs Clear, No Accessory Muscle Use, No Respiratory Distress, Normal Breath Sounds Cardiovascular: No Edema, No JVD, No Murmur, No Gallop, Normal Peripheral Pulses, Regular Rate/Rhythm Breast Exam: Deferred Gastrointestinal: No Pulsatile Mass, Normal Bowel Sounds, Soft, Tenderness (Patient has diffuse tenderness to palpation throughout the epigastric region. Abdomen was [id number] rigid.) Genitalia: Deferred Pelvic: Deferred Rectal: Deferred Extremities: No calf tenderness, Normal capillary refill, Normal inspection, Normal range of motion, Non-tender, No pedal edema Musculoskeletal : Apperance: Normal Neurologic: Alert, No Motor Deficits, Normal Affect, Normal Mood, No Sensory Deficits Cerebellar Function: Normal Reflexes: Normal Skin: Dry, Normal Color, Warm Lymphatic: No Adenopathy Was a procedure done? Was a procedure done?: No GI differential Dx Differential Diagnosis: Cholecystitis, Constipation, Gastritis/PUD, Gastroenteritis, Pancreatitis, UTI, Other (Postoperative complication) X-Ray, Labs, Meds, VS Vital Signs Date Time Temp Pulse Resp B/P (MAP) Pulse Ox O2 Delivery O2 Flow Rate FiO2 10/09/24 23:24 105/63 10/09/24 23:21 77 105/63 (77) 10/09/24 21:23 77 16 100/61 (74) 100 10/09/24 20:49 100/62 10/09/24 19:28 110/72 (85) 10/09/24 18:22 99.4 121 20 101/57 (72) 100 99.4 10/09/24 16:50 18 100 Nasal Cannula* 4 36 10/09/24 15:49 98.4 88 18 91/66 (74) 97 98.4 10/09/24 15:44 103 Lab Test 10/09/24 23:30 10/09/24 22:50 10/09/24 19:13 10/09/24 17:20 Range/Units Influenza Type A Antigen Negative Negative Influenza Type B Antigen Negative Negative SARS-CoV-2 Antigen (Rapid) Negative NEGATIVE Urine Color Yellow Yellow Urine Clarity Clear Clear Urine pH 6.0 5.0-9.0 Urine Specific [place] > 1.050 H 1.001-1.035 Urine Protein Negative Negative Urine Ketones Negative Negative Urine Blood Negative Negative /uL Urine Nitrite Negative Negative Urine Bilirubin Negative Negative Urine Urobilinogen Normal Negative mg/dL Urine Leukocyte Esterase Negative Negative /uL Urine RBC 2 0 - 3 /hpf Urine Microscopic WBC < 1 0-3 /HPF Urine Squamous Epithelial Cells None seen <5 /hpf Urine Bacteria None seen None Seen /hpf Urine Glucose Normal Normal mg/dL Troponin I High Sensitivity < 3 L 3 L </=54 ng/L Test 10/09/24 16:07 Range/Units White Blood Count 7.7 4.4-10.8 10^3/uL Red Blood Count 4.30 L 4.5-5.90 10^6/uL Hemoglobin 13.9 13.5-17.5 g/dL Hematocrit 42.3 41.0-53.0 % Mean Corpuscular Volume 98.4 80.0-100.0 fL Mean Corpuscular Hemoglobin 32.4 H 28.0-32.0 pg Mean Corpuscular Hemoglobin Concent 32.9 32.0-36.0 g/dL Red Cell Distribution Width 14.9 H 11.8-14.3 % Platelet Count 350 140-450 10^3/uL Mean Platelet Volume 6.6 L 6.9-10.8 fL Neutrophils (%) (Auto) 57.4 37.0-80.0 % Lymphocytes (%) (Auto) 35.0 10.0-50.0 % Monocytes (%) (Auto) 4.2 0.0-12.0 % Eosinophils (%) (Auto) 2.9 0.0-7.0 % Basophils (%) (Auto) 0.5 0.0-2.0 % Neutrophils # (Auto) 4.4 1.6-8.6 10 ^3/uL Lymphocytes # (Auto) 2.7 0.4-5.4 10 ^3/uL Monocytes # (Auto) 0.3 0-1.3 10 ^3/uL Eosinophils # (Auto) 0.2 0-0.8 10 ^3/uL Basophils # (Auto) 0 0-0.2 10 ^3/uL Nucleated Red Blood Cells 0.1 % Sodium Level 138 136-145 mmol/L Potassium Level 4.2 3.5-5.1 mmol/L Chloride Level 103 98-107 mmol/L Carbon Dioxide Level 27 20-31 mmol/L Anion Gap 8 5-15 Blood Urea Nitrogen 6 L 9-23 mg/dL Creatinine 0.67 L 0.700-1.30 mg/dL Glomerular Filtration Rate Calc 110 >90 mL/min BUN/Creatinine Ratio 9.0 L 10.0-20.0 Serum Glucose 103 74-106 mg/dL Calcium Level 10.3 8.7-10.4 mg/dL Troponin I High Sensitivity < 3 L </=54 ng/L Lipase 74 H 12-53 U/L Current Medications Medications (Trade) Dose Ordered Sig/Desean Route Start Time Stop Time Status Last Admin Ondansetron HCl (Zofran) 4 mg ONCE ONCE IV 10/09/24 16:00 10/09/24 16:01 DC 10/09/24 20:53 Albuterol (Ventolin Medneb) 5 mg ONCE ONCE NEB 10/09/24 16:45 10/09/24 16:46 DC 10/09/24 16:49 Ipratropium [place] (Atrovent Medneb) 0.5 mg ONCE ONCE NEB 10/09/24 16:45 10/09/24 16:46 DC 10/09/24 16:49 Sodium Chloride 1,000 ml @ 1,000 mls/hr Q1H ONCE IV 10/09/24 18:30 10/09/24 19:29 DC 10/09/24 18:28 Sodium Chloride 1,000 ml @ 1,000 mls/hr Q1H ONCE IV 10/09/24 20:15 10/09/24 21:14 DC 10/09/24 20:15 Fentanyl Citrate 25 mcg ONCE ONCE IV 10/09/24 20:15 10/09/24 20:16 DC 10/09/24 20:49 Fentanyl Citrate 25 mcg ONCE ONCE IV 10/09/24 23:15 10/09/24 23:16 DC 10/09/24 23:24 X-Ray, Labs, Meds, VS Comment All studies performed the ED were evaluated by me personally. Serum laboratories were unremarkable for any systemic concerns other than an elevated lipase indicative of a pancreatitis event. CT of the abdomen confirmed that pancreatitis as well as what appears to be a ventral hernia. Patient will be admitted for pain management of his pancreatitis concerns as well as possible surgical evaluation of the ventral hernia. Patient was in the ED were extended hours due to inability to ascertain urine as well as inability to manage pain, blood pressure concerns and delay and CT evaluation. Time of 1ST Reevaluation: 00:27 Reevaluation 1ST: Improved Consultation: PCP, Surgery Patient Education/Counseling: Diagnosis, Treatment Family Education/Counseling: Diagnosis, Treatment, No Family Present SEPSIS Sepsis Screen Date sepsis recognized/suspect: Oct 09, 2024 Time Sepsis recognized/suspect: 1548 Recent Procedure: Yes On Antibiotic Therapy: No Respiratory Rate >20: No Heart Rate >90: No Temp<36 C (96.8 F) or >38.3 C: No SBP <90 or MAP <65 mmHG: No New Acute Mental Status Change: No Is the patient on CPAP, BIPAP,: No Physician Orders Electrocardigram (10/09/24 15:41) Ct Ab Pel With Iv Con Only (10/09/24 15:55) Heplock Iv (10/09/24 ) Vital Signs Date Time Temp Pulse Resp B/P (MAP) Pulse Ox O2 Delivery O2 Flow Rate FiO2 10/09/24 23:24 105/63 10/09/24 23:21 77 105/63 (77) 10/09/24 21:23 77 16 100/61 (74) 100 10/09/24 20:49 100/62 10/09/24 19:28 110/72 (85) 10/09/24 18:22 99.4 121 20 101/57 (72) 100 99.4 10/09/24 16:50 18 100 Nasal Cannula* 4 36 10/09/24 15:49 98.4 88 18 91/66 (74) 97 98.4 10/09/24 15:44 103 Laboratory Tests Test 10/09/24 16:07 White Blood Count 7.7 10^3/uL (4.4-10.8) Medications Medications Dose Ordered Sig/Desean Route Start Time Stop Time Status Last Admin Dose Admin Albuterol 5 mg ONCE ONCE NEB 10/09/24 16:45 10/09/24 16:46 DC 10/09/24 16:49 Fentanyl Citrate 25 mcg ONCE ONCE IV 10/09/24 20:15 10/09/24 20:16 DC 10/09/24 20:49 Fentanyl Citrate 25 mcg ONCE ONCE IV 10/09/24 23:15 10/09/24 23:16 DC 10/09/24 23:24 Ipratropium [place] 0.5 mg ONCE ONCE NEB 10/09/24 16:45 10/09/24 16:46 DC 10/09/24 16:49 Ondansetron HCl 4 mg ONCE ONCE IV 10/09/24 16:00 10/09/24 16:01 DC 10/09/24 20:53 Sodium Chloride 1,000 ml @ 1,000 mls/hr Q1H ONCE IV 10/09/24 18:30 10/09/24 19:29 DC 10/09/24 18:28 Sodium Chloride 1,000 ml @ 1,000 mls/hr Q1H ONCE IV 10/09/24 20:15 10/09/24 21:14 DC 10/09/24 20:15 Departure 1 Departure Time of Disposition: 00:28 Impression: Primary Impression: Acute on chronic pancreatitis Additional Impression: Ventral hernia Disposition: 09 ADMITTED INPATIENT Condition: Stable Discharged With: Self Critical Care Note Critical Care Time?: No Stability Stability form required: No Heart Score Heart Score: Heart Score Response (Comments) Value History N/A 0 EKG N/A 0 Age N/A 0 Risk Factors N/A 0 Troponin N/A 0 Total 0 I personally scribed for LIDIA GRAY PAC ([email or web address]) on 10/09/24 at 16:19. Electronically submitted by Mc Hunt ([email or web address]). LIDIA GRAY PAC Oct 09, 2024 16:19
[2024-10-09 16:21] LABS: Hematocrit 42.3 % (41.0-53.0); Hemoglobin 13.9 g/dL (13.5-17.5); Mean Corpuscular Hemoglobin 32.4 pg (28.0-32.0); Mean Corpuscular Volume 98.4 fL (80.0-100.0); Nucleated Red Blood Cells % 0.1 %
[2024-10-09 16:33] LABS: Chloride 103 mmol/L (98-107); Potassium 4.2 mmol/L (3.5-5.1); Sodium 138 mmol/L (136-145)
[2024-10-09 16:34] LABS: Anion Gap 8 (5-15); Calcium 10.3 mg/dL (8.7-10.4); Carbon Dioxide 27 mmol/L (20-31)
[2024-10-09 16:39] LABS: BUN/Creatinine Ratio 9.0 (10.0-20.0); Blood Urea Nitrogen 6 mg/dL (9-23); Glucose 103 mg/dL (74-106)
[2024-10-09] MEDS: IPRATROPIUM BROM 0.5 MG/2.5ML INH SOL NEB ONE (16:49)
[2024-10-09] MEDS: ALBUTEROL SULF 2.5 MG/0.5ML(0.5%) NEB SOLN NEB ONE (16:49)
[2024-10-09] MEDS: SODIUM CHLORIDE 0.9% 1,000 ML IV ONE ×2 (18:28→20:15)
[2024-10-09] MEDS: HYDROmorphone HCL 2 MG/ML VL/or syr IV ONE (20:45)
[2024-10-09] MEDS: fentaNYL CITRATE 100 MCG/2 ML VL IV ONE ×2 (20:49→23:24)
[2024-10-09] MEDS: IOHEXOL 300 MG/ML 100ML BOTTLE IJ ONE (20:49)
[2024-10-09] MEDS: ONDANSETRON HCL 4 MG/2 ML VIAL IV ONE (20:53)
[2024-10-09] MEDS: ONDANSETRON HCL 4 MG/2 ML VIAL ONE (20:58)
--- NOTE | 2024-10-09 23:19 | DVH ---
Exam: CT CT AB PEL WITH IV CON ONLY History: Epigastric pain COMPARISON: CT CT AB PEL WITH IV CON ONLY on DOS: 09/26/24, CT CT AB PEL WITH IV CON ONLY on DOS: , CT CT AB PEL WITH IV CON ONLY on DOS: 02/16/24 Technique: Multidetector spiral CT of the abdomen and pelvis was performed from lung bases to pubic s ymphysis. Intravenous contrast was administered during this examination. Portal venous imaging was o btained. Axial, coronal and sagittal multiplanar reformats were performed by the technologist on a [employer] workstation. Radiation Dose : 1. Abdomen/Pelvis: CTDIvol 5.12 mGy, DLP 298.35 mGy*cm. CONTRAST: Type of contrast: Omnipaque 300 Contrast injected: 100 ml Findings: Lung Bases: Stable appearing right lower lobe tree-in-bud nodular morphology and 1.0 cm central right lower lobe pulmonary nodule (image 4, series 3).Otherwise, no acute or significant lung base finding . Normal heart size. No pleural or pericardial effusion. Liver: The liver is normal in size. No focal lesions. Normal hepatic vascular enhancement. Gallbladder and Biliary Tree: Mild gallbladder distention. Stable dilatation of the common bile duct measuring up to 1.1 cm. Spleen: Unremarkable Pancreas: Stable appearing parenchymal atrophy and calcifications. Adrenal Glands: Unremarkable Kidneys: No hydronephrosis. Bladder: Unremarkable Bowel: The stomach is grossly normal in appearance. Small bowel and colon are normal in caliber and d istribution. The appendix is not visualized; however, no secondary findings of acute appendicitis afshin ntified. Ascites: Small volume pelvic ascites. Lymphadenopathy: No mesenteric, retroperitoneal or periportal lymphadenopathy. Abdominal Wall and Mesentery: Moderate apparent dehiscence of midline ventral abdominal wall. Vasculature: The visualized abdominal aorta is normal in size and caliber. Atherosclerotic vascular c alcifications. Abdominal and pelvic vessels demonstrate normal enhancement. Pelvic Organs: Unremarkable Musculoskeletal: No aggressive focal bony lesions, acute fractures or dislocation. IMPRESSION: 1. Stable appearing right lower lobe tree-in-bud nodularity and solid-appearing right lower lobe pulm onary nodule. 2. Mild gallbladder distention and stable appearing dilatation of the common bile duct measuring up t o 11 mm. Sequelae of chronic pancreatitis redemonstrated. 3. Small volume pelvic ascites. 4. Apparent dehiscence of midline ventral abdominal wall. Radiation optimization: All CT scans at this facility use at least one of these dose optimization tobi hniques: automated exposure control mA and/or kV adjustment per patient size (includes targeted exam s where dose is matched to clinical indication) or iterative reconstruction.
[2024-10-10] VITALS (7 sets, daily range): BP systolic 97–156; BP diastolic 56–87; PULSE 68–82; RESP 17–20; TEMP 97–97.9; O2SAT 96–99
[2024-10-10] LABS: Urine Protein, UAD Negative (Negative)
[2024-10-10 00:14] LABS: COVID19 ANTIGEN SOFIA FIA NEGATIVE (NEGATIVE)
[2024-10-10] MEDS ORDERED: ONDANSETRON HCL 4 MG/2 ML VIAL IV PRN (01:45)
[2024-10-10] MEDS ORDERED: ACETAMINOPHEN 325 MG TAB PO PRN (01:45)
[2024-10-10] MEDS ORDERED: NITROGLYCERIN 0.4 MG SL TAB SL PRN (01:45)
[2024-10-10] MEDS ORDERED: HYDROcodone-ACET 5/325MG TAB PO PRN (01:45)
[2024-10-10] MEDS ORDERED: MORPHINE SULFATE INJ 2 MG/ml SYRG IV PRN (01:45)
[2024-10-10] MEDS: SODIUM CHLORIDE 0.9% 1,000 ML IV SCH (02:01)
--- NOTE | 2024-10-10 02:11 | DVHHP2 ---
History of Present Illness Reason for Visit: Acute abdominal pain History of Present Illness The patient is a 54-year-old male with past medical history of anxiety who presented to [facility] ED with complaint of abdominal pain. Patient reports that he had recent transfer to [facility] for Hiatal hernia re pair. Patient states that his recovery has gone well until today where he suddenly began to experience pain to his surgical sit at the epigastric region. Patient was seen and evaluated in the ED, laboratory data shows WBC 7.7, platelets 350, sodium 138, potassium 4.2, BUN 6, creatinine 0.67, glucose 103, calcium 10.3, troponin 3, lipase 74, blood pressure 105/63, heart rate 77, tem perature 98.9 F, O2 saturation 99% on room air. Abdomen/pelvis CT revealing stable appearing right lower lobe tree-in-bud nodularity and solid appearing right lower lobe pulmonary nodule, mild gallbladder distention and stable appearing dilatation of the common bile duct measuring up to 11 mm; sequela of chronic pancreatitis redemonstrated; apparent dehiscence of midline ventral a bdominal wall. Please see medication orders section in the computer. On my assessment, patient denied chest pain, no headache, no dizziness, no shortness of breaths, no nausea, no vomiting, no fever, no chills. Patient was admitted for further evaluation and medical management. Past Medical History Anxiety, Hernia Past Surgical History Hernia Repair Family History Reviewed, noncontributory to the management of this case. Past Social History The patient lives at home, smokes cigarettes, sober alcohol, denies illicit drugs abuse. Review of Systems Constitutional: No: Fever, Chills, Sweats, Weakness, Malaise, Other Eyes: No: Pain, Vision change, Conjunctivae inflammation, Eyelid inflammation, Other, Redness Respiratory: No: Cough, Dry, Shortness of breath, SOB with excertion, Wheezing, Hemoptysis, Pleuritic Pain, Sputum, Wheezing, Other Cardiovascular: No: Chest Pain, Palpitations, Orthopnea, Paroxysmal Noc. Dyspnea, Edema, Lt Headedness, Other Gastrointestinal: Abdominal Pain, Other (Mid abdomen surgical wound); No: Nausea, Vomiting, Diarrhea, Constipation, Melena, Hematochezia Genitourinary: No Dysuria, No Frequency, No Incontinence, No Hematuria, No Retention, No Other Musculoskeletal: No: other, neck pain, shoulder pain, arm pain, back pain, hand pain, leg pain, foot pain Skin: No: Rash, Lesions, Jaundice, Bruising, Other Neurological: No: Weakness, Numbness, Incoordination, Change in speech, Confusion, Seizures, Other Allergies: Coded Allergies: NO KNOWN ALLERGIES (Unverified , 02/16/24) Exam Vital Signs Vital Signs Date Time Temp Pulse Resp B/P (MAP) Pulse Ox O2 Delivery O2 Flow Rate FiO2 10/09/24 23:24 105/63 10/09/24 23:21 77 10/09/24 21:23 16 100 10/09/24 18:22 99.4 99.4 10/09/24 16:50 Nasal Cannula* 4 36 General Appearance: Alert, Oriented X3, Cooperative, No acute distress HEENT: Atraumatic, PERRLA, EOMI, Mucous membr. moist/pink Respiratory: Normal air movement Cardiovascular: Regular rate, Normal S1, Normal S2, No murmurs Abdominal: Normal bowel sounds, Soft, No hepatospenomegaly, No masses, Other (Reports tenderness) Extremities: No clubbing, No cyanosis, No edema, Normal pulses, No tenderness/swelling Skin: No rashes, No breakdown, No significant lesion Neuro: Normal gait, Normal speech, Strength at 5/5 X4 ext, Normal tone, Sensation intact, Cranial nerves 3-12 NL, Reflexes 2+ Psych/Mental Status: Mental status NL, Mood NL Labs/Xrays Labs Test 10/09/24 23:30 10/09/24 22:50 10/09/24 19:13 10/09/24 16:07 Range/Units Influenza Type A Antigen Negative Negative Influenza Type B Antigen Negative Negative SARS-CoV-2 Antigen (Rapid) Negative NEGATIVE Urine Color Yellow Yellow Urine Clarity Clear Clear Urine pH 6.0 5.0-9.0 Urine Specific [place] > 1.050 H 1.001-1.035 Urine Protein Negative Negative Urine Ketones Negative Negative Urine Blood Negative Negative /uL Urine Nitrite Negative Negative Urine Bilirubin Negative Negative Urine Urobilinogen Normal Negative mg/dL Urine Leukocyte Esterase Negative Negative /uL Urine RBC 2 0 - 3 /hpf Urine Microscopic WBC < 1 0-3 /HPF Urine Squamous Epithelial Cells None seen <5 /hpf Urine Bacteria None seen None Seen /hpf Urine Glucose Normal Normal mg/dL Troponin I High Sensitivity < 3 L </=54 ng/L White Blood Count 7.7 4.4-10.8 10^3/uL Red Blood Count 4.30 L 4.5-5.90 10^6/uL Hemoglobin 13.9 13.5-17.5 g/dL Hematocrit 42.3 41.0-53.0 % Mean Corpuscular Volume 98.4 80.0-100.0 fL Mean Corpuscular Hemoglobin 32.4 H 28.0-32.0 pg Mean Corpuscular Hemoglobin Concent 32.9 32.0-36.0 g/dL Red Cell Distribution Width 14.9 H 11.8-14.3 % Platelet Count 350 140-450 10^3/uL Mean Platelet Volume 6.6 L 6.9-10.8 fL Neutrophils (%) (Auto) 57.4 37.0-80.0 % Lymphocytes (%) (Auto) 35.0 10.0-50.0 % Monocytes (%) (Auto) 4.2 0.0-12.0 % Eosinophils (%) (Auto) 2.9 0.0-7.0 % Basophils (%) (Auto) 0.5 0.0-2.0 % Neutrophils # (Auto) 4.4 1.6-8.6 10 ^3/uL Lymphocytes # (Auto) 2.7 0.4-5.4 10 ^3/uL Monocytes # (Auto) 0.3 0-1.3 10 ^3/uL Eosinophils # (Auto) 0.2 0-0.8 10 ^3/uL Basophils # (Auto) 0 0-0.2 10 ^3/uL Nucleated Red Blood Cells 0.1 % Sodium Level 138 136-145 mmol/L Potassium Level 4.2 3.5-5.1 mmol/L Chloride Level 103 98-107 mmol/L Carbon Dioxide Level 27 20-31 mmol/L Anion Gap 8 5-15 Blood Urea Nitrogen 6 L 9-23 mg/dL Creatinine 0.67 L 0.700-1.30 mg/dL Glomerular Filtration Rate Calc 110 >90 mL/min BUN/Creatinine Ratio 9.0 L 10.0-20.0 Serum Glucose 103 74-106 mg/dL Calcium Level 10.3 8.7-10.4 mg/dL Lipase 74 H 12-53 U/L PATIENT: BC STERLING BETHANYT: [id number] UNIT: [id number] : 1970 LOC: ER ROOM / BED: / AGE / SEX: 54 / M ADM STATUS: REG ER SERVICE 1555 ORDERING PHYSICIAN: LIDIA GRAY PAC PROCEDURE(s): ABPLIV - CT AB PEL WITH IV CON ONLY REASON: Epigastric pain ORDER NUMBER(s): [id number], ACCESSION NUMBER(s): [id number] Exam: CT CT AB PEL WITH IV CON ONLY History: Epigastric pain COMPARISON: CT CT AB PEL WITH IV CON ONLY on DOS: 09/26/24, CT CT AB PEL WITH IV CON ONLY on DOS: 03/18/24, CT CT AB PEL WITH IV CON ONLY on DOS: 02/16/24 Technique: Multidetector spiral CT of the abdomen and pelvis was performed from lung bases to pubic symphysis. Intravenous contrast was administered during this examination. Portal venous imaging was obtained. Axial, coronal and sagittal multiplanar reformats were performed by the technologist on a separate workstation. Radiation Dose: 1. Abdomen/Pelvis: CTDIvol 5.12 mGy, DLP 298.35 mGy*cm. CONTRAST: Type of contrast: Omnipaque 300 Contrast injected: 100 ml Findings: Lung Bases: Stable appearing right lower lobe tree-in-bud nodular morphology and 1.0 cm central right lower lobe pulmonary nodule (image 4, series 3).Otherwise, no acute or significant lung base finding. Normal heart size. No pleural or pericardial effusion. Liver: The liver is normal in size. No focal lesions. Normal hepatic vascular enhancement. Gallbladder and Biliary Tree: Mild gallbladder distention. Stable dilatation of the common bile duct measuring up to 1.1 cm. Spleen: Unremarkable Pancreas: Stable appearing parenchymal atrophy and calcifications. Adrenal Glands: Unremarkable Kidneys: No hydronephrosis. Bladder: Unremarkable Bowel: The stomach is grossly normal in appearance. Small bowel and colon are normal in caliber and distribution. The appendix is not visualized; however, no secondary findings of acute appendicitis identified. Ascites: Small volume pelvic ascites. Lymphadenopathy: No mesenteric, retroperitoneal or periportal lymphadenopathy. Abdominal Wall and Mesentery: Moderate apparent dehiscence of midline ventral abdominal wall. Vasculature: The visualized abdominal aorta is normal in size and caliber. Atherosclerotic vascular calcifications. Abdominal and pelvic vessels demonstrate normal enhancement. Pelvic Organs: Unremarkable Musculoskeletal: No aggressive focal bony lesions, acute fractures or dislocation. IMPRESSION: 1. Stable appearing right lower lobe tree-in-bud nodularity and solid-appearing right lower lobe pulmonary nodule. 2. Mild gallbladder distention and stable appearing dilatation of the common bile duct measuring up to 11 mm. Sequelae of chronic pancreatitis re demonstrated. 3. Small volume pelvic ascites. 4. Apparent dehiscence of midline ventral abdominal wall. SEPSIS Sepsis Screen Date sepsis recognized/suspect: Oct 09, 2024 Time Sepsis recognized/suspect: 1548 Recent Procedure: Yes On Antibiotic Therapy: No Respiratory Rate >20: No Heart Rate >90: No Temp<36 C (96.8 F) or >38.3 C: No SBP <90 or MAP <65 mmHG: No New Acute Mental Status Change: No Is the patient on CPAP, BIPAP,: No Physician Orders Complete Blood Count (10/10/24 04:00) Comprehensive Metabolic Panel (10/10/24 04:00) Admit (10/10/24 01:35) Allergies (10/10/24 01:35) Code Status (10/10/24 01:35) 0.9% Ns 1000 Ml (10/10/24 01:45) Oxygen Per Hour (10/10/24 01:35) Hydrocodone-Acet 5/325mg Tab ([place] 5/32 (10/10/24 01:45) Ondansetron Hcl (Zofran) (10/10/24 01:45) Docusate Sodium Capsule (Colace Capsule) (10/10/24 01:45) Complete Blood Count (10/11/24 04:00) Comprehensive Metabolic Panel (10/11/24 04:00) Condition: Serious (10/10/24 01:35) Acetaminophen Tablet (Tylenol Tablet) (10/10/24 01:45) Clear Liq Diet (10/10/24 Breakfast) Bedrest With Bathroom Privileg (10/10/24 01:35) Morphine Sulfate Injection (10/10/24 01:45) Sequential Compression Device (10/10/24 ) Nitroglycerin Sublingual (Ntrostat Subli (10/10/24 01:45) Morphine Sulfate Injection (10/10/24 01:45) Notify Of Changes From Base (10/10/24 01:35) Emergency Dysrhythmia Protocol (10/10/24 01:35) Oxygen By Nasal Cannula (10/10/24 01:35) Vital Signs Date Time Temp Pulse Resp B/P (MAP) Pulse Ox O2 Delivery O2 Flow Rate FiO2 10/09/24 23:24 105/63 10/09/24 23:21 77 105/63 (77) 10/09/24 21:23 77 16 100/61 (74) 100 10/09/24 20:49 100/62 10/09/24 19:28 110/72 (85) 10/09/24 18:22 99.4 121 20 101/57 (72) 100 99.4 Laboratory Tests Test 10/09/24 16:07 White Blood Count 7.7 10^3/uL (4.4-10.8) Medications Medications Dose Ordered Sig/Desean Route Start Time Stop Time Status Last Admin Dose Admin Albuterol 5 mg ONCE ONCE NEB 10/09/24 16:45 10/09/24 16:46 DC 10/09/24 16:49 5 MG Fentanyl Citrate 25 mcg ONCE ONCE IV 10/09/24 20:15 10/09/24 20:16 DC 10/09/24 20:49 25 MCG Fentanyl Citrate 25 mcg ONCE ONCE IV 10/09/24 23:15 10/09/24 23:16 DC 10/09/24 23:24 25 MCG Ipratropium [place] 0.5 mg ONCE ONCE NEB 10/09/24 16:45 10/09/24 16:46 DC 10/09/24 16:49 0.5 MG Ondansetron HCl 4 mg ONCE ONCE IV 10/09/24 16:00 10/09/24 16:01 DC 10/09/24 20:53 4 MG Sodium Chloride 1,000 ml @ 1,000 mls/hr Q1H ONCE IV 10/09/24 18:30 10/09/24 19:29 DC 10/09/24 18:28 1,000 MLS/HR Sodium Chloride 1,000 ml @ 1,000 mls/hr Q1H ONCE IV 10/09/24 20:15 10/09/24 21:14 DC 10/09/24 20:15 1,000 MLS/HR Assessment/Plan Assessment/Plan Acute abdominal pain Ventral hernia Acute on chronic pancreatitis Postoperative abdominal pain Plan 1. Admit to med surge unit 2. Breathing treatment 3. Pain control management 4. Management of fluids and electrolytes 5. Consultation for hospitalist 6. Diagnostic tests abdomen/pelvis CT 7. DVT prophylaxis on SCDs 8. Repeat labs CBC, CMP in a.m. 9. Continue with current medical management 10. Treatment plan discussed with patient and RN. Patient verbalized understanding. Plan discussed with: Patient, Other (RN) My Orders Orders - PIERRE BUCKNER DNP Procedure Category Date Status Time Complete Blood Count LAB 10/10/24 Transmitted 04:00 Comprehensive LAB 10/10/24 Transmitted Metabolic Panel 04:00 Admit ADMIT 10/10/24 Transmitted 01:35 Allergies JAMES 10/10/24 Transmitted 01:35 Code Status CODE 10/10/24 Transmitted 01:35 0.9% Ns 1000 Ml PHA 10/10/24 Transmitted 01:45 Oxygen Per Hour RT 10/10/24 Transmitted 01:35 Hydrocodone-Acet PHA 10/10/24 Transmitted 5/325mg Tab ([place] 01:45 Ondansetron Hcl PHA 10/10/24 Transmitted (Zofran) 01:45 Docusate Sodium PHA 10/10/24 Transmitted Capsule (Colace 01:45 Complete Blood Count LAB 10/11/24 Verified 04:00 Comprehensive LAB 10/11/24 Verified Metabolic Panel 04:00 Condition: Serious JAMES 10/10/24 Transmitted 01:35 Acetaminophen Tablet PHA 10/10/24 Transmitted (Tylenol Tablet) 01:45 Clear Liq Diet DIET 10/10/24 Transmitted Breakfast Bedrest With Bathroom JAMES 10/10/24 Transmitted Privileg 01:35 Morphine Sulfate PHA 10/10/24 Transmitted Injection 01:45 Sequential JAMES 10/10/24 Transmitted Compression Device Nitroglycerin PHA 10/10/24 Transmitted Sublingual (Ntrostat 01:45 Morphine Sulfate PHA 10/10/24 Transmitted Injection 01:45 Notify Md Of Changes JAMES 10/10/24 Verified From Base 01:35 Emergency Dysrhythmia [facility] 10/10/24 Verified Protocol 01:35 Oxygen By Nasal RT 10/10/24 Verified Cannula 01:35 Problem List: (1) Acute abdominal pain (2) Ventral hernia (3) Acute on chronic pancreatitis (4) Postoperative abdominal pain Date of Service: Oct 10, 2024 Billing Provider: PIERRE BUCKNER DNP Common Visit Codes: [id number] INP/OBS CARE (HIGH) PIERRE BUCKNER DNP Oct 10, 2024 02:11
[2024-10-10] MEDS: MORPHINE SULFATE INJ 2 MG/ml SYRG IV PRN (02:17)
[2024-10-10] MEDS: HYDROmorphone HCL 2 MG/ML VL/or syr IV ONE (04:37)
[2024-10-10 08:52] LABS: Hematocrit 33.8 % (41.0-53.0); Hemoglobin 11.2 g/dL (13.5-17.5); Mean Corpuscular Hemoglobin 32.5 pg (28.0-32.0); Mean Corpuscular Volume 98.4 fL (80.0-100.0); Nucleated Red Blood Cells % 0.4 %
[2024-10-10 09:08] LABS: Albumin 3.5 g/dL (3.2-4.8); Alkaline Phosphatase 86 U/L (46-116); Anion Gap 7 (5-15); Calcium 9.3 mg/dL (8.7-10.4); Carbon Dioxide 24 mmol/L (20-31); Glucose 89 mg/dL (74-106); Potassium 3.8 mmol/L (3.5-5.1); Sodium 140 mmol/L (136-145)
[2024-10-10 09:09] LABS: Alanine Aminotransferase < 9 U/L (7-40); BUN/Creatinine Ratio 9.4 (10.0-20.0); Bilirubin, Total 0.2 mg/dL (0.2-1.0); Blood Urea Nitrogen < 5 mg/dL (9-23); Chloride 109 mmol/L (98-107); Total Protein 5.5 g/dL (5.7-8.2)
[2024-10-10] MEDS: KETOROLAC TROMETH 30 MG/ML 1ML VIAL IV ONE (23:36)
[2024-10-11 00:58] VITALS: BP 105/71; PULSE 82; RESP 19; TEMP 97.1; O2SAT 100
[2024-10-11 06:25] LABS: Hematocrit 32.9 % (41.0-53.0); Hemoglobin 11.2 g/dL (13.5-17.5); Mean Corpuscular Hemoglobin 32.6 pg (28.0-32.0); Mean Corpuscular Volume 95.6 fL (80.0-100.0); Nucleated Red Blood Cells % 0.1 %
[2024-10-11 06:42] LABS: Alanine Aminotransferase 10 U/L (7-40); Albumin 3.6 g/dL (3.2-4.8); Alkaline Phosphatase 88 U/L (46-116); Anion Gap 7 (5-15); Calcium 9.6 mg/dL (8.7-10.4); Carbon Dioxide 29 mmol/L (20-31); Chloride 104 mmol/L (98-107); Glucose 97 mg/dL (74-106); Potassium 3.9 mmol/L (3.5-5.1); Sodium 140 mmol/L (136-145)
[2024-10-11 06:46] LABS: BUN/Creatinine Ratio 8.9 (10.0-20.0); Bilirubin, Total 0.2 mg/dL (0.2-1.0); Blood Urea Nitrogen < 5 mg/dL (9-23); Total Protein 5.7 g/dL (5.7-8.2)
[2024-10-11 08:00] VITALS: PULSE 84; RESP 18; O2SAT 95
[2024-10-11 09:00] VITALS: BP 112/74; PULSE 79; RESP 20; TEMP 96.7; O2SAT 99
--- NOTE | 2024-10-11 09:18 | DVHPN2 ---
Reviewed: Care Plan, H&P, Labs, Medications, Previous Orders, Radiology Changes from previous H/P or p: No Changes General: Per HPI Eyes: No Pain, No Vision change, No Conjunctivae inflammation, No Eyelid inflammation, No Other, No Redness Cardiovascular: No Chest Pain, No Palpitations, No Orthopnea, No Paroxysmal Noc. Dyspnea, No Edema, No Lt Headedness, No Other Respiratory: No Cough, No Dry, No Shortness of breath, No SOB with excertion, No Wheezing, No Hemoptysis, No Pleuritic Pain, No Sputum, No Other Gastrointestinal: No Nausea, No Vomiting; Abdominal Pain; No Diarrhea, No Constipation, No Melena, No Hematochezia; Other (Mid abdomen surgical wound) Genitourinary: No Dysuria, No Frequency, No Incontinence, No Hematuria, No Retention, No Other Musculoskeletal: No other, No neck pain, No shoulder pain, No arm pain, No back pain, No hand pain, No leg pain, No foot pain Skin: No Rash, No Lesions, No Jaundice, No Bruising, No Other Objective Vitals Vital Signs Date Time Temp Pulse Resp B/P (MAP) Pulse Ox O2 Delivery O2 Flow Rate FiO2 10/11/24 06:49 83 18 109/72 10/11/24 00:58 97.1 100 97.1 10/10/24 20:00 Room Air* 0 21 Intake/Output Intake and Output 10/11/24 07:00 Intake Total 2040 ml Output Total 1200 ml Balance 840 ml Intake Oral 2040 ml Output Urine Total 1200 ml # Voids 6 General Appearance: Alert, Oriented X3, Cooperative Cardiovascular: Regular rate, Normal S1, Normal S2 Medications Current Medications Medications Dose Ordered Sig/Desean Route Start Time Stop Time Status Last Admin Dose Admin Sodium Chloride 1,000 ml @ 60 mls/hr [id number] IV 10/10/24 01:45 10/10/24 18:44 60 MLS/HR Acetaminophen/ Hydrocodone Bitart 1 tab Q4HP PRN PO 10/10/24 01:45 Ondansetron HCl 4 mg Q4HP PRN IV 10/10/24 01:45 Docusate Sodium 100 mg BIDPRN PRN PO 10/10/24 01:45 Acetaminophen 650 mg Q6HP PRN PO 10/10/24 01:45 Morphine Sulfate 2 mg Q4HPRN PRN IV 10/10/24 01:45 10/11/24 06:49 2 MG Nitroglycerin 0.4 mg Q5MINP PRN SL 10/10/24 01:45 Morphine Sulfate 2 mg Q30M PRN IV 10/10/24 01:45 Laboratory Results Laboratory Tests 10/11/24 05:45 Chemistry Test 10/11/24 05:45 Albumin 3.6 g/dL (3.2-4.8) Calcium Level 9.6 mg/dL (8.7-10.4) Total Protein 5.7 g/dL (5.7-8.2) LFT Test 10/11/24 05:45 Alanine Aminotransferase (ALT) 10 U/L (7-40) Alkaline Phosphatase 88 U/L (46-116) Aspartate Amino Transferase (AST) 16 U/L (13-40) Total Bilirubin 0.2 mg/dL (0.2-1.0) Urinalysis Test 10/09/24 22:50 Urine Color Yellow (Yellow) Urine Clarity Clear (Clear) Urine pH 6.0 (5.0-9.0) Urine Specific [place] > 1.050 (1.001-1.035) Urine Protein Negative (Negative) Urine Ketones Negative (Negative) Urine Blood Negative /uL (Negative) Urine Nitrite Negative (Negative) Urine Bilirubin Negative (Negative) Urine Urobilinogen Normal mg/dL (Negative) Urine Leukocyte Esterase Negative /uL (Negative) Urine RBC 2 /hpf (0 - 3) Urine Microscopic WBC < 1 /HPF (0-3) Urine Squamous Epithelial Cells None seen /hpf (<5) Urine Bacteria None seen /hpf (None Seen) Urine Glucose Normal mg/dL (Normal) Labs and/or images reviewed: Labs reviewed by me, Image(s) reviewed by me Assessment/Plan Assessment/Plan The patient is a 54-year-old male with past medical history of anxiety who presented to [facility] ED with complaint of abdominal pain. Patient reports that he had recent transfer to [facility] for Hiatal hernia repair. Patient states that his recovery has gone well until today where he suddenly began to experience pain to his surgical sit at the epigastric region. Patient was seen and evaluated in the ED, laboratory data shows WBC 7.7, platelets 350, sodium 138, potassium 4.2, BUN 6, creatinine 0.67, glucose 103, calcium 10.3, troponin 3, lipase 74, blood pressure 105/63, heart rate 77, temperature 98.9 F, O2 saturation 99% on room air. Abdomen/pelvis CT revealing stable appearing right lower lobe tree-in-bud nodularity and solid appearing right lower lobe pulmonary nodule, mild gallbladder distention and stable appearing dilatation of the common bile duct measuring up to 11 mm; sequela of chronic pancreatitis redemonstrated; apparent dehiscence of midline ventral abdominal wall. Please see medication orders section in the computer. On my assessment, patient denied chest pain, no headache, no dizziness, no shortness of breaths, no nausea, no vomiting, no fever, no chills. Patient was admitted for further evaluation and medical management. Acute abdominal pain Ventral hernia Acute on chronic pancreatitis Postoperative abdominal pain recent "whipple" surgery possible infection vs gastroenteritis unable to eat 10/11/2024 consult to GI consult to surgery if needed empirical iv abx lactulose Plan discussed with: Patient Date of Service: Oct 11, 2024 Billing Provider: SCOTT DEL VALLE DO Common Visit Codes: [id number] INP/OBS CARE(HIGH) SCOTT DEL VALLE DO Oct 11, 2024 09:18
[2024-10-11] MEDS: HYDROmorphone HCL 2 MG/ML VL/or syr IV PRN (10:16)
[2024-10-11] MEDS: LACTULOSE 20Gm/30ML SOLN PO PRN (10:26)
[2024-10-11] MEDS: PIPERACILLIN-TAZOB 3.375GM 100 ML IV SCH ×2 (11:52→20:09)
[2024-10-11] MEDS: MORPHINE SULFATE INJ 2 MG/ml SYRG IV PRN (12:34)
[2024-10-11 12:39] VITALS: BP 102/72; PULSE 73; RESP 20; TEMP 97.5; O2SAT 100
[2024-10-11 17:00] VITALS: BP_SYST 106; BP_SYST 114; BP_DIAS 68; BP_DIAS 75; PULSE 64; PULSE 73; RESP 20; TEMP 96.5; TEMP 97.4; O2SAT 95; O2SAT 99
--- NOTE | 2024-10-11 20:53 | DVHINCON2 ---
Date of service: Oct 11, 2024 History of Present Illness 54 y/o M pt with PMH of chronic pancreatitis, alcohol abuse, PD stones, s/p mini Whipple procedure per pt at [facility] admitted with abdominal pain. He admits to chronic narcotic dependence, has acute pain flare ups. He did ok after surgery and recently discharged from surgeon office per pt. Last alcohol intake 3 yrs per pt. No diarrhea/N/V/GERD. Has constipation. Past Medical History reviewed Past Surgical History Reviewed Family History: Patient reports no known family medical history. Allergies: Coded Allergies: NO KNOWN ALLERGIES (Unverified , 02/16/24) Home Meds Active Scripts Amoxicillin & Pot Clavulanate (AUGMENTIN TABLET) 875 Mg Tb, 875 MG PO BID for 5 Days, #10 TAB Prov:IDA PAIGE MD 06/16/24 Ibuprofen Micronized (Ibuprofen) 800 Mg Tab, 800 MG PO Q8HP PRN, #20 TAB Prov:LIDIA GRAY [facility] 06/12/24 Oxycodone Hcl (OxyCONTIN ER Tablet) 20 Mg Tb, 1 TAB PO BID for 5 Days, #10 TAB Prov:COREY SHEPHERD MD 04/21/24 Acetaminophen (Acetaminophen) 325 Mg Tab, 650 MG PO Q4HR for 30 Days, #360 TAB Prov:EVE MARTÍNEZ RESIDENT 04/21/24 Ibuprofen (Ibuprofen) 800 Mg Tab, 800 MG PO Q8HP PRN for 10 Days, #30 TAB Prov:EVE MARTÍNEZ RESIDENT 04/21/24 Hydrocodone-Acetaminophen (Hydrocodone Bitartrate/AC 5-325 mg) 1 Tab Tab, 1 TAB PO QID PRN, #30 TAB Prov:FLOR[place] BOWMAN MD 03/15/24 Oxycodone W/ Acetaminophen (Percocet 5/325MG) 1 Tab Tb, 1 TAB PO QID for 5 Days, #20 TAB Prov:BERENICE MANNING NP 02/18/24 Reported Medications Multiple Vitamin (Multivitamin) 1 Tab Tab, 1 TAB PO DAILY 05/14/24 Folic Acid (Folic Acid) 1 Mg Tab, 1 TAB PO DAILY 03/12/24 Multiple Vitamin (One-Daily Multi-Vitamin) 1 Tab Tab, 1 TAB PO DAILY 03/12/24 Pancreatic Enzymes (Creon) 12,000 Unt Cap, PO 02/17/24 Sucralfate (Sucralfate) 1 Gm Tab, 1 TAB PO QID 02/16/24 Rivaroxaban (Xarelto) 2.5 Mg Tab, PO 02/16/24 Magnesium Oxide (True Magnesium Oxide) 400 Mg Tab, 1 TAB PO DAILY 02/16/24 Ethambutol Hcl (Ethambutol Hcl) 100 Mg Tab, 800 MG PO DAILY 02/16/24 Rifampin (Rifampin) 150 Mg Cap, 150 MG PO DAILY 02/16/24 Azithromycin (Azithromycin) 250 Mg Tab, 500 MG PO DAILY 02/16/24 Current Medications Current Medications Medications (Trade) Dose Ordered Sig/Desean Route PRN Reason Start Time Stop Time Status Last Admin Piperacillin Sod/ Tazobactam Sod 100 ml @ 25 mls/hr Q6HR IV 10/11/24 12:00 10/11/24 16:45 DC 10/11/24 11:52 Lactulose 30 ml Q6HPRN PRN PO FOR CONSTIPATION 10/11/24 09:30 10/11/24 16:47 Hydromorphone HCl (Dilaudid Injection) 0.5 mg Q4HPRN PRN IV SEVERE PAIN (7-10 PAIN SCALE) 10/11/24 09:45 10/11/24 18:37 Morphine Sulfate 2 mg Q2HPRN PRN IV MODERATE PAIN (4-6 PAIN SCALE) 10/11/24 09:45 10/11/24 20:23 Piperacillin Sod/ Tazobactam Sod 100 ml @ 25 mls/hr Q8H IV 10/11/24 20:00 10/11/24 20:09 Review of Systems 14 point ROS negative except mentioned above in HPI Vital Signs Vital Signs Date Time Temp Pulse Resp B/P (MAP) Pulse Ox O2 Delivery O2 Flow Rate FiO2 10/11/24 20:23 69 18 119/74 10/11/24 17:00 97.4 99 97.4 10/11/24 08:00 Room Air* 0 21 Physical Exam GE - in no acute distress CVS - S1S2+ Lungs - clear Abdomen - soft, non-distended, tender, BS+. Vertical surgical scar noted Labs/Diagnostic Data Labs Test 10/11/24 05:45 10/09/24 23:30 10/09/24 22:50 10/09/24 19:13 Range/Units White Blood Count 4.3 L 4.4-10.8 10^3/uL Red Blood Count 3.44 L 4.5-5.90 10^6/uL Hemoglobin 11.2 L 13.5-17.5 g/dL Hematocrit 32.9 L 41.0-53.0 % Mean Corpuscular Volume 95.6 80.0-100.0 fL Mean Corpuscular Hemoglobin 32.6 H 28.0-32.0 pg Mean Corpuscular Hemoglobin Concent 34.1 32.0-36.0 g/dL Red Cell Distribution Width 14.4 H 11.8-14.3 % Platelet Count 274 140-450 10^3/uL Mean Platelet Volume 6.8 L 6.9-10.8 fL Neutrophils (%) (Auto) 43.8 37.0-80.0 % Lymphocytes (%) (Auto) 41.2 10.0-50.0 % Monocytes (%) (Auto) 9.4 0.0-12.0 % Eosinophils (%) (Auto) 4.7 0.0-7.0 % Basophils (%) (Auto) 0.9 0.0-2.0 % Neutrophils # (Auto) 1.9 1.6-8.6 10 ^3/uL Lymphocytes # (Auto) 1.8 0.4-5.4 10 ^3/uL Monocytes # (Auto) 0.4 0-1.3 10 ^3/uL Eosinophils # (Auto) 0.2 0-0.8 10 ^3/uL Basophils # (Auto) 0 0-0.2 10 ^3/uL Nucleated Red Blood Cells 0.1 % Sodium Level 140 136-145 mmol/L Potassium Level 3.9 3.5-5.1 mmol/L Chloride Level 104 98-107 mmol/L Carbon Dioxide Level 29 20-31 mmol/L Anion Gap 7 5-15 Blood Urea Nitrogen < 5 L 9-23 mg/dL Creatinine 0.56 L 0.700-1.30 mg/dL Glomerular Filtration Rate Calc 116 >90 mL/min BUN/Creatinine Ratio 8.9 L 10.0-20.0 Serum Glucose 97 74-106 mg/dL Calcium Level 9.6 8.7-10.4 mg/dL Total Bilirubin 0.2 0.2-1.0 mg/dL Aspartate Amino Transferase (AST) 16 13-40 U/L Alanine Aminotransferase (ALT) 10 7-40 U/L Alkaline Phosphatase 88 46-116 U/L Total Protein 5.7 5.7-8.2 g/dL Albumin 3.6 3.2-4.8 g/dL Influenza Type A Antigen Negative Negative Influenza Type B Antigen Negative Negative SARS-CoV-2 Antigen (Rapid) Negative NEGATIVE Urine Color Yellow Yellow Urine Clarity Clear Clear Urine pH 6.0 5.0-9.0 Urine Specific [place] > 1.050 H 1.001-1.035 Urine Protein Negative Negative Urine Ketones Negative Negative Urine Blood Negative Negative /uL Urine Nitrite Negative Negative Urine Bilirubin Negative Negative Urine Urobilinogen Normal Negative mg/dL Urine Leukocyte Esterase Negative Negative /uL Urine RBC 2 0 - 3 /hpf Urine Microscopic WBC < 1 0-3 /HPF Urine Squamous Epithelial Cells None seen <5 /hpf Urine Bacteria None seen None Seen /hpf Urine Glucose Normal Normal mg/dL Troponin I High Sensitivity < 3 L </=54 ng/L Test 10/09/24 16:07 Range/Units Lipase 74 H 12-53 U/L Assessment #Abdominal pain #Hx of HH repair, wound dehisence #Dilated CBD, 11 mm and distended GB Liver enzymes wnl #Chronic pancreatitis. No evidence of acute pancreatitis. Lipase not significantly elevated and imaging showed no acute changes Plan/Recommendation -No clinical evidence of acute pancreatitis per imaging and lipase level -Advance to full liquids -PPI IV BID -Check MRCP if abd pain persists -Adequate pain control, on chronic narcotic dependence. Takes [place] 10 mg, 6-7 pills a day at home -Continue Strict alcohol abstinence -Care plan discussed with pt and RN bedside Thank you for the consult Plan discussed with: Patient MARCELO VAZQUEZ MD Oct 11, 2024 20:53
[2024-10-11 21:00] VITALS: BP 100/64; PULSE 72; RESP 20; TEMP 97; O2SAT 98
[2024-10-12] VITALS (7 sets, daily range): BP systolic 97–123; BP diastolic 65–83; PULSE 67–95; RESP 15–20; TEMP 96.9–98; O2SAT 96–100
--- NOTE | 2024-10-12 16:19 | DVHPN2 ---
Subjective Symptoms are improving. Reviewed: Care Plan, H&P, Labs, Medications, Previous Orders, Radiology Changes from previous H/P or p: No Changes General: Per HPI Eyes: No Pain, No Vision change, No Conjunctivae inflammation, No Eyelid inflammation, No Other, No Redness Cardiovascular: No Chest Pain, No Palpitations, No Orthopnea, No Paroxysmal Noc. Dyspnea, No Edema, No Lt Headedness, No Other Respiratory: No Cough, No Dry, No Shortness of breath, No SOB with excertion, No Wheezing, No Hemoptysis, No Pleuritic Pain, No Sputum, No Other Gastrointestinal: No Nausea, No Vomiting; Abdominal Pain; No Diarrhea, No Constipation, No Melena, No Hematochezia; Other (Mid abdomen surgical wound) Genitourinary: No Dysuria, No Frequency, No Incontinence, No Hematuria, No Retention, No Other Musculoskeletal: No other, No neck pain, No shoulder pain, No arm pain, No back pain, No hand pain, No leg pain, No foot pain Skin: No Rash, No Lesions, No Jaundice, No Bruising, No Other Objective Vitals Vital Signs Date Time Temp Pulse Resp B/P (MAP) Pulse Ox O2 Delivery O2 Flow Rate FiO2 10/12/24 14:40 88 18 113/71 10/12/24 12:34 98.0 97 98.0 10/12/24 08:00 Room Air* 0 21 Intake/Output Intake and Output 10/12/24 07:00 Intake Total 1726 ml Balance 1726 ml Intake Oral 1726 ml # Voids 7 Exam GEN: Healthy appearing, well-developed, NAD. HEENT: NC/AT; MMM. CV: RRR, no m/r/g. LUNGS: CTAB, no w/r/c. ABD: Soft, NT/ND, NBS, no masses or organomegaly. Abdominal midline surgery scar, healing well. EXT: skin Warm, well perfused. no rashes. No clubbing, cyanosis, or edema. NEURO: Ambulating with no limitations. No focal deficits. General Appearance: Alert, Oriented X3, Cooperative Cardiovascular: Regular rate, Normal S1, Normal S2 Medications Current Medications Medications Dose Ordered Sig/Desean Route Start Time Stop Time Status Last Admin Dose Admin Sodium Chloride 1,000 ml @ 60 mls/hr [id number] IV 10/10/24 01:45 10/11/24 11:52 60 MLS/HR Acetaminophen/ Hydrocodone Bitart 1 tab Q4HP PRN PO 10/10/24 01:45 Hold Ondansetron HCl 4 mg Q4HP PRN IV 10/10/24 01:45 Docusate Sodium 100 mg BIDPRN PRN PO 10/10/24 01:45 Acetaminophen 650 mg Q6HP PRN PO 10/10/24 01:45 Nitroglycerin 0.4 mg Q5MINP PRN SL 10/10/24 01:45 Morphine Sulfate 2 mg Q30M PRN IV 10/10/24 01:45 Lactulose 30 ml Q6HPRN PRN PO 10/11/24 09:30 10/11/24 16:47 30 ML Hydromorphone HCl 0.5 mg Q4HPRN PRN IV 10/11/24 09:45 10/12/24 14:40 0.5 MG Morphine Sulfate 2 mg Q2HPRN PRN IV 10/11/24 09:45 10/12/24 12:38 2 MG Piperacillin Sod/ Tazobactam Sod 100 ml @ 25 mls/hr Q8H IV 10/11/24 20:00 10/12/24 12:30 25 MLS/HR Laboratory Results Laboratory Tests 10/11/24 05:45 Urinalysis Test 10/09/24 22:50 Urine Color Yellow (Yellow) Urine Clarity Clear (Clear) Urine pH 6.0 (5.0-9.0) Urine Specific [place] > 1.050 (1.001-1.035) Urine Protein Negative (Negative) Urine Ketones Negative (Negative) Urine Blood Negative /uL (Negative) Urine Nitrite Negative (Negative) Urine Bilirubin Negative (Negative) Urine Urobilinogen Normal mg/dL (Negative) Urine Leukocyte Esterase Negative /uL (Negative) Urine RBC 2 /hpf (0 - 3) Urine Microscopic WBC < 1 /HPF (0-3) Urine Squamous Epithelial Cells None seen /hpf (<5) Urine Bacteria None seen /hpf (None Seen) Urine Glucose Normal mg/dL (Normal) Labs and/or images reviewed: Labs reviewed by me, Image(s) reviewed by me Assessment/Plan Assessment/Plan The patient is a 54-year-old male with PMH of chronic pancreatitis, alcohol abuse, PD stones, s/p mini Whipple procedure per pt at [facility] who presented to [facility] ED with complaint of abdominal pain. Patient reports that he had recent transfer to [facility] for Hiatal hernia repair. Patient states that his recovery has gone well until today where he suddenly began to experience pain to his surgical sit at the epigastric region. Patient was seen and evaluated in the ED, laboratory data shows WBC 7.7, platelets 350, sodium 138, potassium 4.2, BUN 6, creatinine 0.67, glucose 103, calcium 10.3, troponin 3, lipase 74, blood pressure 105/63, heart rate 77, temperature 98.9 F, O2 saturation 99% on room air. Abdomen/pelvis CT revealing stable appearing right lower lobe tree-in-bud nodularity and solid appearing right lower lobe pulmonary nodule, mild gallbladder distention and stable appearing dilatation of the common bile duct measuring up to 11 mm; sequela of chronic pancreatitis redemonstrated; apparent dehiscence of midline ventral abdominal wall. Please see medication orders section in the computer. On my assessment, patient denied chest pain, no headache, no dizziness, no shortness of breaths, no nausea, no vomiting, no fever, no chills. Patient was admitted for further evaluation and medical management. - 10/11/2024: consult to GI , consult to surgery if needed , empirical iv abx, lactulose 10/12:-patient is feeling better. He has bowel sounds. Passing gas. Abdomen is nontender today. Nondistended. Patient is mainly tolerating p.o. and needs 1 more day. Today we will start him on Reglan scheduled, liquid diet, continue pain control with some step-down. He did have partial lipase increased which could be from his chronic pancreatitis maybe an acute flare. Possible DC tomorrow. Continue IV antibiotics. Restart home Creon. Acute intractable abdominal pain, due to below, resolving Acute on chronic pancreatitis, possible Gastroenteritis, infectious Disease, possible Ventral hernia Intravascular volume depletion Postoperative abdominal pain recent "partial- whipple" surgery P.o. intolerance, resolving Dilated CBD -Liquid diet -IV PPI b.i.d. - IV antibiotics -Prn pain control analgesics -Strict alcohol abstinence - if pain continues may need MRCP Plan discussed with: Patient Date of Service: Oct 12, 2024 Billing Provider: ARMIN PORRAS MD Common Visit Codes: [id number] INP/OBS CARE(HIGH) ARMIN PORRAS MD Oct 12, 2024 16:19
[2024-10-12] MEDS ORDERED: METOCLOPRAMIDE HCL 5MG/ml INJ 2ml VIAL IV PRN (17:00)
[2024-10-12] MEDS: CREON 12000 UNIT PO SCH (18:00)
[2024-10-12] MEDS: NICOTINE 14 MG/24HR TOPICAL PATCH TD ONE (21:16)
--- NOTE | 2024-10-12 23:27 | DVHPN2 ---
Progress Note - Dictate Date Seen: Oct 12, 2024 Medical Necessity Reason Pt with a Central, PICC or Fol: No Subjective 54 y/o M pt with PMH of chronic pancreatitis, alcohol abuse, PD stones, s/p mini Whipple procedure per pt at [facility] admitted with abdominal pain. He admits to chronic narcotic dependence, has acute pain flare ups. He did ok after surgery and recently discharged from surgeon office per pt. Last alcohol intake 3 yrs per pt. No diarrhea/N/V/GERD. Has constipation. Patient has no new complaints and he is ambulatory He does complain of ongoing epigastric abdominal pain He recently had a partial whipple for CBD stones vital signs Vital Sign Date Time Temp Pulse Resp B/P (MAP) Pulse Ox O2 Delivery O2 Flow Rate FiO2 10/12/24 21:00 97.8 85 15 123/83 (96) 97 97.8 10/12/24 08:00 Room Air* 0 21 Total Intake and Output 10/11/24 10/11/24 10/12/24 15:00 23:00 07:00 Intake Total 476 ml 800 ml 450 ml Balance 476 ml 800 ml 450 ml medications Current Medications Medications Dose Ordered Sig/Desean Route Start Time Stop Time Status Last Admin Dose Admin Sodium Chloride 1,000 ml @ 60 mls/hr [id number] IV 10/10/24 01:45 10/12/24 21:01 60 MLS/HR Ondansetron HCl 4 mg Q4HP PRN IV 10/10/24 01:45 Docusate Sodium 100 mg BIDPRN PRN PO 10/10/24 01:45 Acetaminophen 650 mg Q6HP PRN PO 10/10/24 01:45 Nitroglycerin 0.4 mg Q5MINP PRN SL 10/10/24 01:45 Morphine Sulfate 2 mg Q30M PRN IV 10/10/24 01:45 Lactulose 30 ml Q6HPRN PRN PO 10/11/24 09:30 10/11/24 16:47 30 ML Hydromorphone HCl 0.5 mg Q4HPRN PRN IV 10/11/24 09:45 10/12/24 19:26 0.5 MG Piperacillin Sod/ Tazobactam Sod 100 ml @ 25 mls/hr Q8H IV 10/11/24 20:00 10/12/24 20:59 25 MLS/HR Patient Own Medication 1 TIDWM PO 10/12/24 18:00 Metoclopramide HCl 10 mg Q8HPRN PRN IV 10/12/24 17:00 Acetaminophen/ Hydrocodone Bitart 1 tab Q6HP PRN PO 10/12/24 17:00 objective GE - in no acute distress CVS - S1S2+ Lungs - clear Abdomen - soft, non-distended, tender, BS+. Vertical well healed surgical scar noted laboratory and microbiology Laboratory Tests 10/11/24 05:45 Test 10/11/24 05:45 Range/Units Serum Glucose 97 74-106 mg/dL Problems(with codes): (1) Acute abdominal pain (2) Acute on chronic pancreatitis (3) Postoperative abdominal pain (4) Chronic pancreatitis Prognosis Plan Advance diet as tolerated Add pancreatic enzymes Discharge planning as per hospitalist Outpatient follow up with me in 4-6 weeks for ongoing management Patient has been counseled against substance abuse and smoking Plan discussed with: Patient, Other (Dr Manzanares) GISELLE ALY MD Oct 12, 2024 23:27
[2024-10-13] MEDS: HYDROcodone-ACET 10/325MG TAB PO PRN (00:29)
[2024-10-13 01:00] VITALS: BP 109/77; PULSE 82; RESP 14; TEMP 97.2; O2SAT 98
[2024-10-13 05:00] VITALS: BP 108/82; PULSE 82; RESP 14; TEMP 97.5; O2SAT 98
[2024-10-13 07:32] LABS: Alanine Aminotransferase 13 U/L (7-40); Albumin 4.1 g/dL (3.2-4.8); Alkaline Phosphatase 110 U/L (46-116); Anion Gap 4 (5-15); Calcium 9.4 mg/dL (8.7-10.4); Carbon Dioxide 31 mmol/L (20-31); Chloride 103 mmol/L (98-107); Glucose 90 mg/dL (74-106); Lipase 42 U/L (12-53); Potassium 4.7 mmol/L (3.5-5.1); Sodium 138 mmol/L (136-145); Total Protein 6.6 g/dL (5.7-8.2)
[2024-10-13 07:47] LABS: BUN/Creatinine Ratio 8.1 (10.0-20.0); Bilirubin, Total 0.2 mg/dL (0.2-1.0); Blood Urea Nitrogen < 5 mg/dL (9-23)
[2024-10-13 08:38] VITALS: BP 124/80; PULSE 65; RESP 21; TEMP 97.7; O2SAT 100
[2024-10-13] MEDS: hydrOXYzine HCL 10 MG TAB PO PRN (12:27)
[2024-10-13] MEDS: DOCUSATE SOD 100 MG CAP PO PRN (12:45)
[2024-10-13 12:57] VITALS: BP 11/54; PULSE 76; RESP 20; TEMP 97.8; O2SAT 96
[2024-10-13] MEDS ORDERED: AUG875T PO (13:16)
[2024-10-13] MEDS ORDERED: METO10TA3 PO (13:16)
--- NOTE | 2024-10-13 13:23 | DVHDS2 ---
Discharge Summary Date of Admission Oct 10, 2024 at 01:35 Date of Discharge: Oct 13, 2024 Labs/Diagnostic Data: Laboratory Results Test 10/13/24 06:29 10/11/24 05:45 10/09/24 23:30 10/09/24 22:50 Sodium Level 138 mmol/L (136-145) Potassium Level 4.7 mmol/L (3.5-5.1) Chloride Level 103 mmol/L (98-107) Carbon Dioxide Level 31 mmol/L (20-31) Anion Gap 4 (5-15) Blood Urea Nitrogen < 5 mg/dL (9-23) Creatinine 0.62 mg/dL (0.700-1.30) Glomerular Filtration Rate Calc 113 mL/min (>90) BUN/Creatinine Ratio 8.1 (10.0-20.0) Serum Glucose 90 mg/dL (74-106) Calcium Level 9.4 mg/dL (8.7-10.4) Total Bilirubin 0.2 mg/dL (0.2-1.0) Aspartate Amino Transferase (AST) 16 U/L (13-40) Alanine Aminotransferase (ALT) 13 U/L (7-40) Alkaline Phosphatase 110 U/L (46-116) Total Protein 6.6 g/dL (5.7-8.2) Albumin 4.1 g/dL (3.2-4.8) Lipase 42 U/L (12-53) White Blood Count 4.3 10^3/uL (4.4-10.8) Red Blood Count 3.44 10^6/uL (4.5-5.90) Hemoglobin 11.2 g/dL (13.5-17.5) Hematocrit 32.9 % (41.0-53.0) Mean Corpuscular Volume 95.6 fL (80.0-100.0) Mean Corpuscular Hemoglobin 32.6 pg (28.0-32.0) Mean Corpuscular Hemoglobin Concent 34.1 g/dL (32.0-36.0) Red Cell Distribution Width 14.4 % (11.8-14.3) Platelet Count 274 10^3/uL (140-450) Mean Platelet Volume 6.8 fL (6.9-10.8) Neutrophils (%) (Auto) 43.8 % (37.0-80.0) Lymphocytes (%) (Auto) 41.2 % (10.0-50.0) Monocytes (%) (Auto) 9.4 % (0.0-12.0) Eosinophils (%) (Auto) 4.7 % (0.0-7.0) Basophils (%) (Auto) 0.9 % (0.0-2.0) Neutrophils # (Auto) 1.9 10 ^3/uL (1.6-8.6) Lymphocytes # (Auto) 1.8 10 ^3/uL (0.4-5.4) Monocytes # (Auto) 0.4 10 ^3/uL (0-1.3) Eosinophils # (Auto) 0.2 10 ^3/uL (0-0.8) Basophils # (Auto) 0 10 ^3/uL (0-0.2) Nucleated Red Blood Cells 0.1 % Influenza Type A Antigen Negative (Negative) Influenza Type B Antigen Negative (Negative) SARS-CoV-2 Antigen (Rapid) Negative (NEGATIVE) Urine Color Yellow (Yellow) Urine Clarity Clear (Clear) Urine pH 6.0 (5.0-9.0) Urine Specific [place] > 1.050 (1.001-1.035) Urine Protein Negative (Negative) Urine Ketones Negative (Negative) Urine Blood Negative /uL (Negative) Urine Nitrite Negative (Negative) Urine Bilirubin Negative (Negative) Urine Urobilinogen Normal mg/dL (Negative) Urine Leukocyte Esterase Negative /uL (Negative) Urine RBC 2 /hpf (0 - 3) Urine Microscopic WBC < 1 /HPF (0-3) Urine Squamous Epithelial Cells None seen /hpf (<5) Urine Bacteria None seen /hpf (None Seen) Urine Glucose Normal mg/dL (Normal) Test 10/09/24 19:13 Troponin I High Sensitivity < 3 ng/L (</=54) Other Laboratory Tests 10/13/24 06:29 10/11/24 05:45 Brief Hx & Hospital Course: The patient is a 54-year-old male with PMH of chronic pancreatitis, alcohol abuse, PD stones, s/p mini Whipple procedure per pt at [facility] who presented to [facility] ED with complaint of abdominal pain. Patient reports that he had recent transfer to [facility] for Hiatal hernia repair. Patient states that his recovery has gone well until today where he suddenly began to experience pain to his surgical sit at the epigastric region. Patient was seen and evaluated in the ED, laboratory data shows WBC 7.7, platelets 350, sodium 138, potassium 4.2, BUN 6, creatinine 0.67, glucose 103, calcium 10.3, troponin 3, lipase 74, blood pressure 105/63, heart rate 77, temperature 98.9 F, O2 saturation 99% on room air. Abdomen/pelvis CT revealing stable appearing right lower lobe tree-in-bud nodularity and solid appearing right lower lobe pulmonary nodule, mild gallbladder distention and stable appearing dilatation of the common bile duct measuring up to 11 mm; sequela of chronic pancreatitis redemonstrated; apparent dehiscence of midline ventral abdominal wall. Please see medication orders section in the computer. On my assessment, patient denied chest pain, no headache, no dizziness, no shortness of breaths, no nausea, no vomiting, no fever, no chills. Patient was admitted for further evaluation and medical management. - 10/11/24: consult to GI , consult to surgery if needed , empirical iv abx, lactulose - 10/12:-patient is feeling better. He has bowel sounds. Passing gas. Abdomen is nontender today. Nondistended. Patient is mainly tolerating p.o. and needs 1 more day. Today we will start him on Reglan scheduled, liquid diet, continue pain control with some step-down. He did have partial lipase increased which could be from his chronic pancreatitis maybe an acute flare. Possible DC tomorrow. Continue IV antibiotics. Restart home Creon. - 10/13- patient tolerating full meals but asking to increase pain regiment. Patient is already on Dilaudid taking it regularly on time for p.r.n. schedule. Suspecting possible drug-seeking behavior. Given patient is comfortable walking, sitting in bedside tolerating p.o. completely, lipase negative, CMP unremarkable, vital signs stable, stable for discharge as per plan below. diagnosis: Acute intractable abdominal pain, due to below, resolving Acute on chronic pancreatitis, possible Gastroenteritis, infectious Disease, possible Ventral hernia Intravascular volume depletion Postoperative abdominal pain recent "partial- whipple" surgery P.o. intolerance, resolving Dilated CBD discharge plan: - kidney taking antibiotics for MAC infection - follow up with GI Dr. Thomas outpatient for ongoing care of chronic pancreatitis - Okay to take [id number]-[id number] pain pills as needed, - Take 3 more days of Augmentin 875 mg twice daily. - for nausea , take prescribed Reglan up to 3 times daily as needed, refills with PCP - continue full liquid diet for 1 week advanced as tolerated - follow up with PCP to review discharge - Continue other home medications the mentioned above. Condition at Discharge: Fair Final Diagnosis/Problems List diagnosis: Acute intractable abdominal pain, due to below, resolving Acute on chronic pancreatitis, possible Gastroenteritis, infectious Disease, possible Ventral hernia Intravascular volume depletion Postoperative abdominal pain recent "partial- whipple" surgery P.o. intolerance, resolving Dilated CBD Discharge Disposition: Home Discharge Instruct/Medications Diet: See Comment Diet comment: See below Activity: No Restrictions, As Tolerated Follow Up/Referral: See below Medications: See below Scheduled Acetaminophen (Acetaminophen), 650 MG PO Q4HR Amoxicillin & Pot Clavulanate (Augmentin Tablet), 875 MG PO BID Amoxicillin & Pot Clavulanate (Augmentin Tablet), 875 MG PO BID Azithromycin (Azithromycin), 500 MG PO DAILY, (Reported) Ethambutol Hcl (Ethambutol Hcl), 800 MG PO DAILY, (Reported) Folic Acid (Folic Acid), 1 TAB PO DAILY, (Reported) Magnesium Oxide (True Magnesium Oxide), 1 TAB PO DAILY, (Reported) Multiple Vitamin (One-Daily Multi-Vitamin), 1 TAB PO DAILY, (Reported) Multiple Vitamin (Multivitamin), 1 TAB PO DAILY, (Reported) Oxycodone Hcl (OxyCONTIN ER Tablet), 1 TAB PO BID Oxycodone W/ Acetaminophen (Percocet 5/325MG), 1 TAB PO QID Rifampin (Rifampin), 150 MG PO DAILY, (Reported) Sucralfate (Sucralfate), 1 TAB PO QID, (Reported) Scheduled PRN Hydrocodone-Acetaminophen (Hydrocodone Bitartrate/AC 5-325 mg), 1 TAB PO QID PRN Ibuprofen (Ibuprofen), 800 MG PO Q8HP PRN Ibuprofen Micronized (Ibuprofen), 800 MG PO Q8HP PRN Metoclopramide Hcl (Metoclopramide Hcl), 10 MG PO TIDP PRN Miscellaneous Medications Pancreatic Enzymes (Creon), PO, (Reported) Rivaroxaban (Xarelto), PO, (Reported) Discharge Statement: "Patient was advised to return to the ER or call 911 if any headaches, dizziness, shortness of breath, chest pain, abdominal pain, bleeding, fevers, or worsening of medical condition. Patient was counseled about treatment plan, medications, possible side effects, patientverbalized understanding. All questions were answered to the best of my ability. This discharge took greater then 30 minutes in planning, reviewing documentation, counseling the patient, and discussing with other team members." Date of Service: Oct 13, 2024 Billing Provider: ARMIN PORRAS MD Common Visit Codes: [id number] DISCH DAY >30min ARMIN PORRAS MD Oct 13, 2024 13:23
[2024-10-13 15:03] VITALS: BP 113/54; PULSE 76; RESP 20; TEMP 97.8; O2SAT 96
--- NOTE | 2024-10-13 15:39 | DVHPN2 ---
Progress Note Date Seen: Oct 13, 2024 Resident Creating Document: [place] RESIDENT Has the PT tested + for MRSA If YES, has PT been informed?: No Medical Necessity Reason Pt with a Central, PICC or Fol: No Subjective Review of Systems 10/13/24 54-year-old male with a history of chronic pancreatitis, alcohol abuse (abstinent for 3 years), prior CBD stones, and recent partial Whipple procedure presents with severe ongoing epigastric abdominal pain. Pain is chronic with acute flare-ups; patient reports severe intensity. Morphine was discontinued today, and pain regimen was transitioned to [place]. He remains on Dilaudid PRN. He denies nausea or vomiting and is tolerating soft diet without emesis. Last bowel movement was on 10/10; patient is ambulatory and moves to the bathroom independently. No fevers, chills, or GI bleeding reported. Abdominal tenderness is present he had a recent surgery. Brief Summary of Todays Progress, Treatment, Labs, and Imaging * Pain: Persistent but managed with opioid step-down ([place]). * Diet: Tolerating soft diet, no vomiting. * Bowel: No BM since 10/10; lactulose and docusate administered. * Labs: electrolytes stable, lipase is normal. * Imaging: CT abdomen/pelvis stable right lower lobe nodule, mild gallbladder distention, dilated CBD (1.1 cm), small pelvic ascites, chronic pancreatitis changes, dehiscence of ventral abdominal wall. * Surgical Site: Midline scar healing well. * Plan: Continue monitoring pain control, await lipase, continue supportive care, discharge when clinically stable. Review of Systems (ROS) * GI: Positive for abdominal pain and constipation. Negative for nausea, vomiting, diarrhea, GI bleeding. * General: Denies fever, chills, weight loss. * Respiratory: Denies shortness of breath or cough. * Cardiac: No chest pain, palpitations. * : No dysuria, hematuria. * Other systems: Negative unless noted above. Objective vital signs Vital Sign Date Time Temp Pulse Resp B/P (MAP) Pulse Ox O2 Delivery O2 Flow Rate FiO2 10/13/24 15:03 97.8 76 20 96 10/13/24 13:02 113/54 10/13/24 08:00 Room Air* 0 21 Total Intake and Output 10/12/24 10/12/24 10/13/24 15:00 23:00 07:00 Intake Total 1420 ml 400 ml Output Total 1275 ml 600 ml Balance 145 ml -200 ml medications Current Medications Medications Dose Ordered Sig/Desean Route Start Time Stop Time Status Last Admin Dose Admin Sodium Chloride 1,000 ml @ 60 mls/hr [id number] IV 10/10/24 01:45 10/13/24 13:05 60 MLS/HR Ondansetron HCl 4 mg Q4HP PRN IV 10/10/24 01:45 Docusate Sodium 100 mg BIDPRN PRN PO 10/10/24 01:45 10/13/24 12:45 100 MG Acetaminophen 650 mg Q6HP PRN PO 10/10/24 01:45 Nitroglycerin 0.4 mg Q5MINP PRN SL 10/10/24 01:45 Morphine Sulfate 2 mg Q30M PRN IV 10/10/24 01:45 Lactulose 30 ml Q6HPRN PRN PO 10/11/24 09:30 10/13/24 12:45 30 ML Hydromorphone HCl 0.5 mg Q4HPRN PRN IV 10/11/24 09:45 10/13/24 12:32 0.5 MG Piperacillin Sod/ Tazobactam Sod 100 ml @ 25 mls/hr Q8H IV 10/11/24 20:00 10/13/24 12:00 25 MLS/HR Patient Own Medication 1 TIDWM PO 10/12/24 18:00 10/13/24 12:29 1 Metoclopramide HCl 10 mg Q8HPRN PRN IV 10/12/24 17:00 Acetaminophen/ Hydrocodone Bitart 1 tab Q6HP PRN PO 10/12/24 17:00 10/13/24 00:29 1 TAB Hydroxyzine HCl 20 mg Q6HP PRN PO 10/13/24 09:30 10/13/24 12:27 20 MG Examination * General: Alert, oriented x3, cooperative, no acute distress. * HEENT: Normocephalic, atraumatic, mucous membranes moist. * CV: Regular rate and rhythm, no murmurs/rubs/gallops. * Lungs: Clear to auscultation bilaterally. * Abdomen: Soft, nondistended, mild epigastric tenderness, normal bowel sounds, no masses or organomegaly. Midline surgical scar healing well. * Extremities: Warm, well-perfused, no edema, cyanosis, or clubbing. * Neuro: Ambulati laboratory and microbiology Laboratory Tests 10/13/24 06:29 10/11/24 05:45 Test 10/13/24 06:29 Range/Units Serum Glucose 90 74-106 mg/dL Problem List/Assessment/Plan Problem List/Assessment/Plan Assessment Postoperative Abdominal Pain expected following Whipples, improving. Dilated CBD and Mild Gallbladder Distention sequelae of chronic pancreatitis vs. postoperative changes. Small Pelvic Ascites likely postoperative/reactive. Chronic Narcotic Dependence opioid step-down ongoing. Ventral Abdominal Wall Dehiscence stable, no signs of infection. Treatment Plan (GI-Specific, System-Adame) Gastrointestinal: * Continue [place] for pain; avoid escalation to IV opioids unless necessary. * Continue lactulose and docusate for constipation. * Restart Creon (pancreatic enzyme replacement). * Advance diet as tolerated; currently on soft diet. * Continue IV PPI (pantoprazole) BID for GI protection. * Monitor for signs of infection or obstruction. Post-Surgical Care: * Monitor surgical wound; currently healing well. * Watch for signs of infection or worsening dehiscence. Other Supportive Measures: * Continue IV fluids for hydration. * Encourage early ambulation. 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 Continue monitoring the patient Discharge planning as per hospitalist Outpatient follow up with me in 4-6 weeks for ongoing management Plan discussed with: Patient Dietary Evaluation Review Comments: 1) Ensure Enlive 240ml BID 2) MVI w mineral 1 tab daily 3) Monitor wt trend, PO intkae, and lab values Expected Outcomes/Goals: To meet >75% estimated needs FU 5-7 days [place] RESIDENT Oct 13, 2024 15:39
[2024-10-13] MEDS ORDERED: LACT10SO3 PO (15:53)
[2024-10-13] MEDS ORDERED: FLEET ENEMA(ADULT) 135 ML PR ONE (16:00)
[2024-10-13] MEDS: BISACODYL 10 MG RECT SUPP PR ONE (16:13)
[2024-10-13 16:31] VITALS: BP 109/72; PULSE 68; RESP 19; TEMP 98.3; O2SAT 99
--- NOTE | 2024-10-19 07:50 | ECG ---
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
== END 2024-10-13 17:17 | disposition home or self-care (01) | DRG 282 ==
LOC: ER 15:27 → OVERFLOW 10-10 01:35 → WEST WING 10-10 03:47
PROVIDERS: ADMIT Student in an Organized Health Care Education/Training Program; ATTEND Student in an Organized Health Care Education/Training Program
DX: K85.90 Acute pancreatitis without necrosis or infection, unspecified (principal); R18.8 Other ascites; E44.1 Mild protein-calorie malnutrition; R71.0 Precipitous drop in hematocrit; E86.9 Volume depletion, unspecified; A09 Infectious gastroenteritis and colitis, unspecified; F11.20 Opioid dependence, uncomplicated; K43.9 Ventral hernia without obstruction or gangrene; K82.8 Other specified diseases of gallbladder; Z20.822 Contact with and (suspected) exposure to COVID-19; K59.00 Constipation, unspecified; F17.210 Nicotine dependence, cigarettes, uncomplicated; F41.9 Anxiety disorder, unspecified; G89.18 Other acute postprocedural pain; K86.1 Other chronic pancreatitis; Z68.1 Body mass index [BMI] 19.9 or less, adult
CPT/HCPCS: 36415; 74177; 80048; 80053; 81001; 83690; 84484; 85025; 87426; 87804; 93005; 94640; 96361; 96374; 96375; G0378; J1100; J1885; J2405; J2543; J7060

== ENCOUNTER 2024-10-19 15:55 | Emergency (ER) | payer MEDICAID ==
[~2024-10-19] VITALS: Ht 165.1 cm; Wt 52.2 kg
[~2024-10-19 15:55] MED LIST changes: -IBUP-1456 PO; +LACT10SO3 PO; +METO10TA3 PO; -MULT-443 PO
[2024-10-19 16:00] VITALS: TEMP 98.7
--- NOTE | 2024-10-19 18:28 | ED.PDOC ---
GI ASSESSMENT HPI Comments 54-year-old male patient presents to the ED via ambulance. Patient's chief complaint or several concerns shortness of breath and abdominal pain. Patient received a breathing treatment in route for shortness of breath and wheezing states improvement. Continues with moderate to severe abdominal discomfort and pain. He states lower mid abdomen shooting to his mid back 10/10 on pain scale with nausea no vomiting cramping and sharp in nature. Reports history of a Whipple and pancreatitis in the past. States he feels like it is pancreatitis acting up again. He denies difficulty breathing chest pain, vomiting, diarrhea, recent travel fever or chills. Chief Complaint: Abdominal Pain Time Seen by MD: 18:09 Primary Care Provider: MARK Reviewed Notes: Nurses Notes, Drawing Hand Notes, Medications, Allergies Allergies: Coded Allergies: NO KNOWN ALLERGIES (Unverified , 02/16/24) Home Meds Active Scripts Lactulose (Lactulose) 10 Gm/15 Ml Molly, 30 ML PO DAILY PRN for 10 Days, #300 ML Prov:ANNE MARIE COWAN 10/19/24 Lactulose (Lactulose) 10 Gm/15 Ml Molly, 10 GM PO BID for 7 Days, #473 ML Prov:ARMIN PORRAS MD 10/13/24 Metoclopramide Hcl (Metoclopramide Hcl) 10 Mg Tab, 10 MG PO TIDP PRN for 7 Days, #20 TAB 0 Refills Prov:ARMIN PORRAS MD 10/13/24 Amoxicillin & Pot Clavulanate (AUGMENTIN TABLET) 875 Mg Tb, 875 MG PO BID for 3 Days, #6 TAB 0 Refills Prov:ARMIN PORRAS MD 10/13/24 Ibuprofen Micronized (Ibuprofen) 800 Mg Tab, 800 MG PO Q8HP PRN, #20 TAB Prov:LIDIA GRAY PAC 06/12/24 Oxycodone Hcl (OxyCONTIN ER Tablet) 20 Mg Tb, 1 TAB PO BID for 5 Days, #10 TAB Prov:COREY SHEPHERD MD 04/21/24 Acetaminophen (Acetaminophen) 325 Mg Tab, 650 MG PO Q4HR for 30 Days, #360 TAB Prov:EVE MARTÍNEZ 04/21/24 Hydrocodone-Acetaminophen (Hydrocodone Bitartrate/AC 5-325 mg) 1 Tab Tab, 1 TAB PO QID PRN, #30 TAB Prov:[place] BOWMAN MD 03/15/24 Oxycodone W/ Acetaminophen (Percocet 5/325MG) 1 Tab Tb, 1 TAB PO QID for 5 Days, #20 TAB Prov:BERENICE MANNING NP 02/18/24 Reported Medications Multiple Vitamin (Multivitamin) 1 Tab Tab, 1 TAB PO DAILY 05/14/24 Folic Acid (Folic Acid) 1 Mg Tab, 1 TAB PO DAILY 03/12/24 Pancreatic Enzymes (Creon) 12,000 Unt Cap, PO 02/17/24 Sucralfate (Sucralfate) 1 Gm Tab, 1 TAB PO QID 02/16/24 Rivaroxaban (Xarelto) 2.5 Mg Tab, PO 02/16/24 Magnesium Oxide (True Magnesium Oxide) 400 Mg Tab, 1 TAB PO DAILY 02/16/24 Ethambutol Hcl (Ethambutol Hcl) 100 Mg Tab, 800 MG PO DAILY 02/16/24 Rifampin (Rifampin) 150 Mg Cap, 150 MG PO DAILY 02/16/24 Azithromycin (Azithromycin) 250 Mg Tab, 500 MG PO DAILY 02/16/24 Discontinued Reported Medications Multiple Vitamin (One-Daily Multi-Vitamin) 1 Tab Tab, 1 TAB PO DAILY 03/12/24 Discontinued Scripts Amoxicillin & Pot Clavulanate (AUGMENTIN TABLET) 875 Mg Tb, 875 MG PO BID for 5 Days, #10 TAB Prov:IDA PAIGE MD 06/16/24 Ibuprofen (Ibuprofen) 800 Mg Tab, 800 MG PO Q8HP PRN for 10 Days, #30 TAB Prov:EVE MARTÍNEZ 04/21/24 Mode of Arrival: EMS Past Medical History PAST MEDICAL HISTORY: Anxiety Past Medical History (Other): Pancreatitis Surgical History: Hernia Repair Surgical History (Other): Whipple Family History Family History: Reviewed,noncontributory to illness, Unknown Social History Smoker: Cigarettes Alcohol: Sober Drugs: Denies Drug Use Lives In: Home Constitutional: denies: chills, diaphoresis, fatigue, fever, malaise, sweats, weakness, others EENTM: denies: blurred vision, double vision, ear bleeding, ear discharge, ear drainage, ear pain, ear ringing, eye pain, eye redness, hearing loss, mouth pain, mouth swelling, nasal discharge, nose bleeding, nose congestion, nose pain, photophobia, tearing, throat pain, throat swelling, voice changes, others Respiratory: reports: shortness of breath, wheezing; denies: cough, hemoptysis, orthopnea, SOB at rest, SOB with excertion, stridor, others Cardiovascular: denies: chest pain, dizzy spells, diaphoresis, Dyspnea on exertion, edema, irregular heart beat, left arm pain, lightheadedness, palpitati ons, PND, syncope, others Gastrointestinal: reports: abdominal pain, nausea, poor appetite; denies: abdomen distended, blood streaked bowels, constipated, diarrhea, dysphagia, difficulty swallowing, hematemesis, melena, poor fluid intake, rectal bleeding, rectal pain, vomiting, others Genitourinary: denies: burning, dysuria, flank pain, frequency, hematuria, incontinence, penile discharge, penile sore, pain, testicle pain, testicle swelling, urgency, others Neurological: denies: dizziness, fainting, headache, left sided numbness, left sided weakness, numbness, paresthesia, pre-existing deficit, right sided numbness, right sided weakness, seizure, speech problems, tingling, tremors, weakness, others Musculoskeletal: denies: back pain, gout, joint pain, joint swelling, muscle pain, muscle stiffness, neck pain, others Integumetry: denies: bruises, change in color, change in hair/nails, dryness, laceration, lesions, lumps, rash, wounds, others Allergic/Immunocompromised: denies: Difficulty Healing, Frequent Infections, Hives, Itching, others Hematologic/Lymphatic: denies: anemia, blood clots, easy bleeding, easy bruising, swollen glands, others Endocrine: denies: excessive hunger, excessive sweating, excessive thirst, excessive urination, flushing, intolerance to cold, intolerance to heat, unexplained weight gain, unexplained weight loss, others Psychiatric: denies: anxiety, bipolar disorder, depression, hopeless, panic disorder, schizophrenia, sleepless, suicidal, others Physical Exam General Appearance: No Apparent Distress, Normal HEENT: Normal ENT Inspection, Pharynx Normal, TMs Normal Neck: Full Range of Motion, Non-Tender Respiratory: Decreased Breath Sounds, No Respiratory Distress Cardiovascular: No Edema, No JVD, No Murmur, No Gallop, Normal Peripheral Pulse s, Regular Rate/Rhythm Breast Exam: Deferred Gastrointestinal: Distended, No Organomegaly, No Pulsatile Mass, Normal Bowel Sounds, Soft, Tenderness (Mid epigastrium) Genitalia: Deferred Pelvic: Deferred Rectal: Deferred Extremities: Normal capillary refill, Normal inspection, Normal range of motion, Non-tender, No pedal edema Musculoskeletal : Apperance: Normal Neurologic: Alert, No Motor Deficits, Normal Affect, Normal Mood, No Sensory Deficits Cerebellar Function: Normal Reflexes: NOT DONE Skin: Dry, Normal Color, Warm Lymphatic: No Adenopathy Was a procedure done? Was a procedure done?: No GI differential Dx Differential Diagnosis: Aortic dissection, Bowel Obstruction, Gastritis/PUD, Gastroenteritis, GI hemorrhage, Hepatitis, Inflammatory BD, Ischemic Bowel, Pancreatitis, UTI X-Ray, Labs, Meds, VS Vital Signs Date Time Temp Pulse Resp B/P (MAP) Pulse Ox O2 Delivery O2 Flow Rate FiO2 10/19/24 19:33 70 16 96 Room Air 10/19/24 19:32 70 16 90/63 (72) 10/19/24 16:00 98.7 104 18 123/71 100 98.7 Lab Test 10/19/24 18:17 Range/Units White Blood Count 7.5 4.4-10.8 10^3/uL Red Blood Count 4.11 L 4.5-5.90 10^6/uL Hemoglobin 13.4 L 13.5-17.5 g/dL Hematocrit 39.4 L 41.0-53.0 % Mean Corpuscular Volume 96.0 80.0-100.0 fL Mean Corpuscular Hemoglobin 32.7 H 28.0-32.0 pg Mean Corpuscular Hemoglobin Concent 34.0 32.0-36.0 g/dL Red Cell Distribution Width 14.2 11.8-14.3 % Platelet Count 392 140-450 10^3/uL Mean Platelet Volume 6.9 6.9-10.8 fL Neutrophils (%) (Auto) 49.8 37.0-80.0 % Lymphocytes (%) (Auto) 38.5 10.0-50.0 % Monocytes (%) (Auto) 9.5 0.0-12.0 % Eosinophils (%) (Auto) 1.7 0.0-7.0 % Basophils (%) (Auto) 0.5 0.0-2.0 % Neutrophils # (Auto) 3.7 1.6-8.6 10 ^3/uL Lymphocytes # (Auto) 2.9 0.4-5.4 10 ^3/uL Monocytes # (Auto) 0.7 0-1.3 10 ^3/uL Eosinophils # (Auto) 0.1 0-0.8 10 ^3/uL Basophils # (Auto) 0 0-0.2 10 ^3/uL Nucleated Red Blood Cells 0.1 % Sodium Level 135 L 136-145 mmol/L Potassium Level 4.2 3.5-5.1 mmol/L Chloride Level 100 98-107 mmol/L Carbon Dioxide Level 28 20-31 mmol/L Anion Gap 7 5-15 Blood Urea Nitrogen 10 9-23 mg/dL Creatinine 0.68 L 0.700-1.30 mg/dL Glomerular Filtration Rate Calc 110 >90 mL/min BUN/Creatinine Ratio 14.7 10.0-20.0 Serum Glucose 129 H 74-106 mg/dL Calcium Level 9.5 8.7-10.4 mg/dL Total Bilirubin 0.2 0.2-1.0 mg/dL Aspartate Amino Transferase (AST) 13 13-40 U/L Alanine Aminotransferase (ALT) < 9 7-40 U/L Alkaline Phosphatase 125 H 46-116 U/L Total Protein 6.5 5.7-8.2 g/dL Albumin 4.2 3.2-4.8 g/dL Lipase 48 12-53 U/L Current Medications Medications (Trade) Dose Ordered Sig/Desean Route Start Time Stop Time Status Last Admin Sodium Chloride 1,000 ml @ 1,000 mls/hr Q1H ONCE IV 10/19/24 18:30 10/19/24 19:29 DC 10/19/24 19:31 Oxycodone/ Acetaminophen (Percocet 5/ 325MG Tablet) 1 tab ONCE ONCE PO 10/19/24 19:30 10/19/24 19:32 DC 10/19/24 19:46 Lactulose 30 ml ONCE ONCE PO 10/19/24 19:30 10/19/24 19:32 DC 10/19/24 19:45 X-Ray, Labs, Meds, VS Comment CBC, CMP, and lipase all within normal limits. CT abdomen and pelvis does show moderate stool constipation and recommendation for CT chest for middle lobe cavity. Patient does state he is aware of the that in his secondary to a lung infection he had several months ago in his currently following with Pulmonary. For both that and the pulmonary nodule. Patient does state since his Whipple surgery has been having intermittent constipation. Patient given 1 L bolus of normal saline morphine hold due to patient's blood pressure under 100 systolic. Patient was also given lactulose 30 mL p.o.. Patient does report he is feeling better in his requesting discharge at this time. Script trial of lactulose 30 mL daily PRN times 10 days. Advised him to increase his p.o. fluids and fiber daily to help his constipation. Advised for him to follow up with his primary care provider in two or three days if unable to get an appointment return to urgent care or ER. Patient indicates understanding and agrees with discharge plan of care. Time of 1ST Reevaluation: 18:28 Reevaluation 1ST: Unchanged Time of 2ND Reevaluation: 19:40 Reevaluation 2ND: Improved Patient Education/Counseling: Diagnosis, Treatment, Prognosis, Need For Follow Up Family Education/Counseling: No Family Present SEPSIS Sepsis Screen Date sepsis recognized/suspect: Oct 19, 2024 Time Sepsis recognized/suspect: 1600 Recent Procedure: No On Antibiotic Therapy: No Respiratory Rate >20: No Heart Rate >90: No Temp<36 C (96.8 F) or >38.3 C: No SBP <90 or MAP <65 mmHG: No New Acute Mental Status Change: No Is the patient on CPAP, BIPAP,: No Physician Orders Chest Two Views Routine (10/19/24 18:18) Ct Ab Pel Wo Con-No Oral Or Iv (10/19/24 18:21) Vital Signs Date Time Temp Pulse Resp B/P (MAP) Pulse Ox O2 Delivery O2 Flow Rate FiO2 10/19/24 19:33 70 16 96 Room Air 10/19/24 19:32 70 16 90/63 (72) 10/19/24 16:00 98.7 104 18 123/71 100 98.7 Laboratory Tests Test 10/19/24 18:17 White Blood Count 7.5 10^3/uL (4.4-10.8) Medications Medications Dose Ordered Sig/Desean Route Start Time Stop Time Status Last Admin Dose Admin Lactulose 30 ml ONCE ONCE PO 10/19/24 19:30 10/19/24 19:32 DC 8/4/25 19:45 Oxycodone/ Acetaminophen 1 tab ONCE ONCE PO 10/19/24 19:30 10/19/24 19:32 DC 10/19/24 19:46 Sodium Chloride 1,000 ml @ 1,000 mls/hr Q1H ONCE IV 10/19/24 18:30 10/19/24 19:29 DC 10/19/24 19:31 Departure 1 Departure Time of Disposition: 19:48 Impression: Primary Impression: Constipation Qualified Codes: K59.00 - Constipation, unspecified Disposition: HOME / SELF CARE / HOMELESS Condition: Stable e-Prescriptions Lactulose (Lactulose) 10 Gm/15 Ml Molly 30 ML PO DAILY PRN for 10 Days, #300 ML Prov: ANNE MARIE COWAN 10/19/24 Discharged With: Self Critical Care Note Critical Care Time?: No Stability Stability form required: ANNE MARIE Beckwith Oct 19, 2024 18:28
[2024-10-19] MEDS ORDERED: ONDANSETRON HCL 4 MG/2 ML VIAL IV ONE (18:30)
[2024-10-19] MEDS ORDERED: MORPHINE SULFATE 4 MG/ML SYR/VIAL IV ONE (18:30)
[2024-10-19 18:38] LABS: Hematocrit 39.4 % (41.0-53.0); Hemoglobin 13.4 g/dL (13.5-17.5); Mean Corpuscular Hemoglobin 32.7 pg (28.0-32.0); Mean Corpuscular Volume 96.0 fL (80.0-100.0); Nucleated Red Blood Cells % 0.1 %
--- NOTE | 2024-10-19 18:53 | DVH ---
XY CHEST TWO VIEWS ROUTINE CLINICAL HISTORY: sob COMPARISON: XY CHEST PORTABLE on DOS: 07/08/24, XY CHEST PORTABLE on DOS: 06/11/24, XY CHEST PORTABLE o n DOS: 02/17/24 TECHNIQUE: Frontal and lateral view of the chest was obtained FINDINGS: Lines and Tubes: None Lungs: 4.2 x 3.1 cm cavitating lesion of the right medial upper lung zone. Left upper to mid lung zon e and right upper lung zone linear atelectasis. Hyperinflation of the lungs. Pleura: No effusion. No pneumothorax. Cardiomediastinal contours: Unremarkable Bones: No acute osseous abnormality. IMPRESSION: There appears to be 4.2 x 3.1 cm cavitating lesion right medial mid lung zone. CT is recommended for further evaluation. Left upper to mid lung zone and right upper lung zone linear atelectasis /scarring. Hyperinflation of the lungs.
[2024-10-19 18:58] LABS: Albumin 4.2 g/dL (3.2-4.8)
--- NOTE | 2024-10-19 19:10 | DVH ---
Exam: CT CT AB PEL WO CON-NO ORAL OR IV History: mid abd pain hx of whipple Comparison Study: CT CT AB PEL WO CON-NO ORAL OR IV on DOS: 07/08/24, CT CT AB PEL WO CON-NO ORAL OR I V on DOS: 05/14/24, CT CT AB PEL WO CON-NO ORAL OR IV on DOS: 04/19/24 TECHNIQUE: Multidetector CT of the abdomen and pelvis without IV contrast. Axial, coronal and sagitta l multiplanar reformats were obtained from the axial data set by the technologist. Radiation Dose Information: CT Dose: CTDI volume is 5.07 mGy. Dose-length product is 3.92 mGy*cm FINDINGS: Hyperinflation of the lungs. Bibasilar atelectasis / scarring. 1.1 x 0.8 cm solid nodule over the ri ght lower lobe. Heart size is within normal limits. Liver, spleen, and adrenal glands are unremarkable. Gallbladder is mildly distended. Otherwise unrem arkable. Unchanged pancreatic calcification globular appearance of the proximal pancreas. Kidneys, ureters and urinary bladder are unremarkable. Prostate measures 3.7 x 4.4 by 4.5 cm. Stomach is unremarkable. Small bowel loops are unremarkable. Appendix is not definitely visualized. W ithout visualization of the appendix, can not exclude acute appendicitis. Moderate to large amount of fecal material within the colon. Linear densities within the left lower ventral abdomen which may re present postsurgical changes. No evidence of intraperitoneal free air or free fluid. Limited evaluation for lymphadenopathy. [id number] atherosclerotic calcification of the aorta and bilateral iliacs. Minimal body wall edema. No destructive osseous lesions are noted. Focus of the right proximal femur which may represent a bone island of the blastic lesion not excluded. Midline ventral abdominal soft tissues defect which may represent sequela of prior surgery. IMPRESSION: Limited noncontrast imaging. Constipation. Additional findings as above.
[2024-10-19 19:17] LABS: Anion Gap 7 (5-15)
[2024-10-19 19:22] LABS: BUN/Creatinine Ratio 14.7 (10.0-20.0)
[2024-10-19 19:23] LABS: Potassium 4.2 mmol/L (3.5-5.1); Sodium 135 mmol/L (136-145)
[2024-10-19 19:24] LABS: Alanine Aminotransferase < 9 U/L (7-40); Alkaline Phosphatase 125 U/L (46-116); Bilirubin, Total 0.2 mg/dL (0.2-1.0); Blood Urea Nitrogen 10 mg/dL (9-23); Calcium 9.5 mg/dL (8.7-10.4); Carbon Dioxide 28 mmol/L (20-31); Chloride 100 mmol/L (98-107); Glucose 129 mg/dL (74-106); Total Protein 6.5 g/dL (5.7-8.2)
[2024-10-19] MEDS: SODIUM CHLORIDE 0.9% 1,000 ML IV ONE (19:31)
[2024-10-19 19:32] VITALS: BP 90/63
[2024-10-19 19:33] VITALS: PULSE 70; RESP 16; O2SAT 96
[2024-10-19] MEDS: LACTULOSE 20Gm/30ML SOLN PO ONE (19:45)
[2024-10-19] MEDS: OXYCODONE W/ ACETAMINOPHEN 5/325MG TABLET PO ONE (19:46)
[2024-10-19] MEDS ORDERED: LACT10SO3 PO (20:07)
== END 2024-10-19 20:28 | disposition home or self-care (01) ==
LOC: ER 15:55 → EDBD 15:55 → EDUNIT# 15:55 → ER 20:26
DX: K59.00 Constipation, unspecified (principal); F17.210 Nicotine dependence, cigarettes, uncomplicated; F41.9 Anxiety disorder, unspecified; Z79.899 Other long term (current) drug therapy; Z90.411 Acquired partial absence of pancreas; Z98.890 Other specified postprocedural states
CPT/HCPCS: 36415; 71046; 74176; 80053; 83690; 85025; 96360; 99284; J7030

== ENCOUNTER 2024-10-31 15:24 | Inpatient (IN) | payer MEDICAID ==
[~2024-10-31] VITALS: Ht 167.6 cm; Wt 51.0 kg
[2024-10-31 15:45] VITALS: PULSE 94; RESP 10; O2SAT 98
--- NOTE | 2024-10-31 15:49 | ED.PDOC ---
GI ASSESSMENT HPI Comments This is a 54 year old male presenting to the ED with chief complaint of abdominal pain. Patient reports that he has been experiencing 8/10 generalized abdominal pain since last night, keeping him up all night. Patient relays that he had a Whipple procedure done on 08/27. Patient noted to be hypotensive in triage at 88/56. Patient denies any N/V/D, dizziness, fever, chills, flank pain, chest pain, or dysuria. Patient has been at this facility numerous times for similar complaints. Patient has chronic pancreatitis. Chief Complaint: Abdominal Pain Time Seen by MD: 15:46 Primary Care Provider: MARK Reviewed Notes: Nurses Notes, Medications, Allergies Allergies: Coded Allergies: NO KNOWN ALLERGIES (Unverified , 02/16/24) Home Meds Active Scripts Lactulose (Lactulose) 10 Gm/15 Ml Molly, 10 GM PO BID for 7 Days, #473 ML Prov:ARMIN PORRAS MD 10/13/24 Metoclopramide Hcl (Metoclopramide Hcl) 10 Mg Tab, 10 MG PO TIDP PRN for 7 Days, #20 TAB 0 Refills Prov:ARMIN PORRAS MD 10/13/24 Amoxicillin & Pot Clavulanate (AUGMENTIN TABLET) 875 Mg Tb, 875 MG PO BID for 3 Days, #6 TAB 0 Refills Prov:ARMIN PORRAS MD 10/13/24 Ibuprofen Micronized (Ibuprofen) 800 Mg Tab, 800 MG PO Q8HP PRN, #20 TAB Prov:LIDIA GRAY PAC 06/12/24 Oxycodone Hcl (OxyCONTIN ER Tablet) 20 Mg Tb, 1 TAB PO BID for 5 Days, #10 TAB Prov:COREY SHEPHERD MD 04/21/24 Acetaminophen (Acetaminophen) 325 Mg Tab, 650 MG PO Q4HR for 30 Days, #360 TAB Prov:EVE MARTÍNEZ RESIDENT 04/21/24 Hydrocodone-Acetaminophen (Hydrocodone Bitartrate/AC 5-325 mg) 1 Tab Tab, 1 TAB PO QID PRN, #30 TAB Prov:[place] BOWMAN MD 03/15/24 Oxycodone W/ Acetaminophen (Percocet 5/325MG) 1 Tab Tb, 1 TAB PO QID for 5 Days, #20 TAB Prov:BERENICE MANNING SENIOR JAVA DEVELOPER 02/18/24 Reported Medications Multiple Vitamin (Multivitamin) 1 Tab Tab, 1 TAB PO DAILY 05/14/24 Folic Acid (Folic Acid) 1 Mg Tab, 1 TAB PO DAILY 03/12/24 Pancreatic Enzymes (Creon) 12,000 Unt Cap, PO 02/17/24 Sucralfate (Sucralfate) 1 Gm Tab, 1 TAB PO QID 02/16/24 Rivaroxaban (Xarelto) 2.5 Mg Tab, PO 02/16/24 Magnesium Oxide (True Magnesium Oxide) 400 Mg Tab, 1 TAB PO DAILY 02/16/24 Ethambutol Hcl (Ethambutol Hcl) 100 Mg Tab, 800 MG PO DAILY 02/16/24 Rifampin (Rifampin) 150 Mg Cap, 150 MG PO DAILY 02/16/24 Azithromycin (Azithromycin) 250 Mg Tab, 500 MG PO DAILY 02/16/24 Discontinued Scripts Lactulose (Lactulose) 10 Gm/15 Ml Molly, 30 ML PO DAILY PRN for 10 Days, #300 ML Prov:CAMRYNANNE MARIE ENVIRONMENTAL PROJECT MANAGER 10/19/24 Information Source: Patient Mode of Arrival: Ambulatory Timing: Hours Duration: Since onset Prehospital treatment: None Quality: Cramping, Sharp Vomitus: None Stool: Normal Severity: Moderate Recent: None Recent Hx of: Abdominal Surgery Pain Location: Diffuse, Epigastric, Periumbilical Modifying Factors: Food, Nothing Associated sign and symptoms: Nausea, Abdominal Pain Past Medical History PAST MEDICAL HISTORY: Anxiety Past Medical History (Other): Pancreatitis Surgical History: Hernia Repair Surgical History (Other): Whipple procedure Family History Family History: Reviewed,noncontributory to illness, Unknown Social History Smoker: Cigarettes Alcohol: Sober Drugs: Denies Drug Use Lives In: Home Constitutional: denies: chills, diaphoresis, fatigue, fever, malaise, sweats, weakness, others EENTM: denies: blurred vision, double vision, ear bleeding, ear discharge, ear drainage, ear pain, ear ringing, eye pain, eye redness, hearing loss, mouth pain, mouth swelling, nasal discharge, nose bleeding, nose congestion, nose pain, photophobia, tearing, throat pain, throat swelling, voice changes, others Respiratory: denies: cough, hemoptysis, orthopnea, SOB at rest, shortness of breath, SOB with excertion, stridor, wheezing, others Cardiovascular: denies: chest pain, dizzy spells, diaphoresis, Dyspnea on exertion, edema, irregular heart beat, left arm pain, lightheadedness, palpitations, PND, syncope, others Gastrointestinal: reports: abdominal pain, nausea; denies: abdomen distended, blood streaked bowels, constipated, diarrhea, dysphagia, difficulty swallowing, hematemesis, melena, poor appetite, poor fluid intake, rectal bleeding, rectal pain, vomiting, others Genitourinary: denies: burning, dysuria, flank pain, frequency, hematuria, incontinence, penile discharge, penile sore, pain, testicle pain, testicle swelling, urgency, others Neurological: denies: dizziness, fainting, headache, left sided numbness, left sided weakness, numbness, paresthesia, pre-existing deficit, right sided numbness, right sided weakness, seizure, speech problems, tingling, tremors, weakness, others Musculoskeletal: denies: back pain, gout, joint pain, joint swelling, muscle pain, muscle stiffness, neck pain, others Integumetry: denies: bruises, change in color, change in hair/nails, dryness, laceration, lesions, lumps, rash, wounds, others Allergic/Immunocompromised: denies: Difficulty Healing, Frequent Infections, Hives, Itching, others Hematologic/Lymphatic: denies: anemia, blood clots, easy bleeding, easy bruising, swollen glands, others Endocrine: denies: excessive hunger, excessive sweating, excessive thirst, excessive urination, flushing, intolerance to cold, intolerance to heat, unexplained weight gain, unexplained weight loss, others Psychiatric: denies: anxiety, bipolar disorder, depression, hopeless, panic disorder, schizophrenia, sleepless, suicidal, others All Other Systems: Reviewed and Negative Physical Exam General Appearance: Moderate Distress (Patient was in moderate distress due to abdominal pain concerns.), Normal HEENT: Normal ENT Inspection, Pharynx Normal, TMs Normal Neck: Full Range of Motion, Non-Tender, Normal, Normal Inspection Respiratory: Chest Non-Tender, Lungs Clear, No Accessory Muscle Use, No Respiratory Distress, Normal Breath Sounds Cardiovascular: No Edema, No JVD, No Murmur, No Gallop, Normal Peripheral Pulses, Regular Rate/Rhythm Breast Exam: Deferred Gastrointestinal: Other (Diffuse bilateral upper abdominal pain extending into the periumbilical region. Patient displays a recent postsurgical scar. Abdomen was mildly rigid. No pulsatile masses.) Genitalia: Deferred Pelvic: Deferred Rectal: Deferred Extremities: No calf tenderness, Normal capillary refill, Normal inspection, Normal range of motion, Non-tender, No pedal edema Neurologic: Alert, No Motor Deficits, Normal Affect, Normal Mood, No Sensory Deficits Cerebellar Function: NOT DONE Reflexes: NOT DONE Skin: Dry, Normal Color, Warm Lymphatic: No Adenopathy Was a procedure done? Was a procedure done?: No GI differential Dx Differential Diagnosis: Appendicitis, Aortic dissection, Bowel Obstruction, Cholangitis, Cholecystitis, Constipation, Gastritis/PUD, Gastroenteritis, Pancreatitis X-Ray, Labs, Meds, VS Vital Signs Date Time Temp Pulse Resp B/P (MAP) Pulse Ox O2 Delivery O2 Flow Rate FiO2 10/31/24 18:56 65 10 99/72 (81) 97 10/31/24 16:02 94/69 10/31/24 16:00 88 10/31/24 15:45 94 10 98 Room Air* 0 21 10/31/24 15:45 98.2 94 10 95/66 (76) 98 98.2 10/31/24 15:39 97 10/31/24 15:25 97.4 100 18 87/63 99 97.4 Lab Test 10/31/24 17:04 10/31/24 15:56 Range/Units Troponin I High Sensitivity < 3 L < 3 L </=54 ng/L White Blood Count 6.8 4.4-10.8 10^3/uL Red Blood Count 3.96 L 4.5-5.90 10^6/uL Hemoglobin 12.8 L 13.5-17.5 g/dL Hematocrit 37.2 L 41.0-53.0 % Mean Corpuscular Volume 93.9 80.0-100.0 fL Mean Corpuscular Hemoglobin 32.3 H 28.0-32.0 pg Mean Corpuscular Hemoglobin Concent 34.4 32.0-36.0 g/dL Red Cell Distribution Width 14.0 11.8-14.3 % Platelet Count 397 140-450 10^3/uL Mean Platelet Volume 6.8 L 6.9-10.8 fL Neutrophils (%) (Auto) 61.0 37.0-80.0 % Lymphocytes (%) (Auto) 27.7 10.0-50.0 % Monocytes (%) (Auto) 8.1 0.0-12.0 % Eosinophils (%) (Auto) 2.5 0.0-7.0 % Basophils (%) (Auto) 0.7 0.0-2.0 % Neutrophils # (Auto) 4.2 1.6-8.6 10 ^3/uL Lymphocytes # (Auto) 1.9 0.4-5.4 10 ^3/uL Monocytes # (Auto) 0.6 0-1.3 10 ^3/uL Eosinophils # (Auto) 0.2 0-0.8 10 ^3/uL Basophils # (Auto) 0 0-0.2 10 ^3/uL Nucleated Red Blood Cells 0.1 % Sodium Level 137 136-145 mmol/L Potassium Level 4.3 3.5-5.1 mmol/L Chloride Level 104 98-107 mmol/L Carbon Dioxide Level 27 20-31 mmol/L Anion Gap 6 5-15 Blood Urea Nitrogen 7 L 9-23 mg/dL Creatinine 0.54 L 0.700-1.30 mg/dL Glomerular Filtration Rate Calc 118 >90 mL/min BUN/Creatinine Ratio 13.0 10.0-20.0 Serum Glucose 153 H 74-106 mg/dL Calcium Level 8.6 L 8.7-10.4 mg/dL Total Bilirubin 0.2 0.2-1.0 mg/dL Aspartate Amino Transferase (AST) 19 13-40 U/L Alanine Aminotransferase (ALT) 15 7-40 U/L Alkaline Phosphatase 132 H 46-116 U/L Total Protein 5.9 5.7-8.2 g/dL Albumin 3.8 3.2-4.8 g/dL Lipase 56 H 12-53 U/L Current Medications Medications (Trade) Dose Ordered Sig/Desean Route Start Time Stop Time Status Last Admin Fentanyl Citrate 50 mcg ONCE ONCE IV 10/31/24 15:45 10/31/24 15:46 DC 10/31/24 16:02 Ondansetron HCl (Zofran) 4 mg ONCE ONCE IV 10/31/24 15:45 10/31/24 15:46 DC 10/31/24 16:01 Sodium Chloride 500 ml @ 500 mls/hr Q1H ONCE IV 10/31/24 15:45 10/31/24 16:44 DC 10/31/24 16:01 X-Ray, Labs, Meds, VS Comment All studies performed the ED were evaluated by me personally. EKG revealed a sinus rhythm with a rate of 97. Right atrial enlargement was appreciated as well as low voltage in precordial leads and possible right ventricular hypertrophy. ID interval of 137 and QT interval of 356. Serum laboratories were remarkable for a mild anemic state. Additional findings of chronic pancreatitis were noted. Ultrasound showed a gallbladder wall thickening and concerns for possible cholecystitis event. MRCP was depressive for definitive evaluation. Patient will be admitted for pain management and evaluation of additional studies related to his possible cholecystitis. Time of 1ST Reevaluation: 19:47 Reevaluation 1ST: Improved Consultation: PCP Patient Education/Counseling: Diagnosis, Treatment Family Education/Counseling: Diagnosis, Treatment, No Family Present SEPSIS Sepsis Screen Date sepsis recognized/suspect: Oct 31, 2024 Time Sepsis recognized/suspect: 1526 Recent Procedure: No On Antibiotic Therapy: No Respiratory Rate >20: No Heart Rate >90: Yes Temp<36 C (96.8 F) or >38.3 C: No SBP <90 or MAP <65 mmHG: No New Acute Mental Status Change: No Is the patient on CPAP, BIPAP,: No Physician Orders Troponin-I Hs (11/01/24 00:00) Troponin-I Hs (11/01/24 03:00) Urinalysis (10/31/24 15:39) Heplock Iv (10/31/24 15:39) Electrocardigram (10/31/24 15:39) Abdomen Limited (10/31/24 18:14) Vital Signs Date Time Temp Pulse Resp B/P (MAP) Pulse Ox O2 Delivery O2 Flow Rate FiO2 10/31/24 18:56 65 10 99/72 (81) 97 10/31/24 16:02 94/69 10/31/24 16:00 88 10/31/24 15:45 94 10 98 Room Air* 0 21 10/31/24 15:45 98.2 94 10 95/66 (76) 98 98.2 10/31/24 15:39 97 10/31/24 15:25 97.4 100 18 87/63 99 97.4 Laboratory Tests Test 10/31/24 15:56 White Blood Count 6.8 10^3/uL (4.4-10.8) Medications Medications Dose Ordered Sig/Desean Route Start Time Stop Time Status Last Admin Dose Admin Fentanyl Citrate 50 mcg ONCE ONCE IV 10/31/24 15:45 10/31/24 15:46 DC 10/31/24 16:02 Ondansetron HCl 4 mg ONCE ONCE IV 10/31/24 15:45 10/31/24 15:46 DC 10/31/24 16:01 Sodium Chloride 500 ml @ 500 mls/hr Q1H ONCE IV 10/31/24 15:45 10/31/24 16:44 DC 10/31/24 16:01 Departure 1 Departure Time of Disposition: 19:48 Impression: Primary Impression: Cholecystitis Additional Impression: Intractable abdominal pain Disposition: ADMITTED INPATIENT Condition: Fair Discharged With: Self Critical Care Note Critical Care Time?: No Stability Stability form required: No Heart Score Heart Score: Heart Score Response (Comments) Value History N/A 0 EKG N/A 0 Age N/A 0 Risk Factors N/A 0 Troponin N/A 0 Total 0 I personally scribed for LIDIA GRAY PAC ([email or web address]) on 10/31/24 at 15:49. Electronically submitted by Mc Hunt ([email or web address]). LIDIA GRAY PAC Oct 31, 2024 15:49
[2024-10-31] MEDS: ONDANSETRON HCL 4 MG/2 ML VIAL IV ONE (16:01)
[2024-10-31] MEDS: SODIUM CHLORIDE 0.9% 500 ML IV ONE (16:01)
[2024-10-31] MEDS: fentaNYL CITRATE 100 MCG/2 ML VL IV ONE (16:02)
[2024-10-31 16:12] LABS: Hematocrit 37.2 % (41.0-53.0); Hemoglobin 12.8 g/dL (13.5-17.5); Mean Corpuscular Hemoglobin 32.3 pg (28.0-32.0); Mean Corpuscular Volume 93.9 fL (80.0-100.0); Nucleated Red Blood Cells % 0.1 %
[2024-10-31 16:35] LABS: Alanine Aminotransferase 15 U/L (7-40); Albumin 3.8 g/dL (3.2-4.8); Anion Gap 6 (5-15); BUN/Creatinine Ratio 13.0 (10.0-20.0); Carbon Dioxide 27 mmol/L (20-31); Chloride 104 mmol/L (98-107); Potassium 4.3 mmol/L (3.5-5.1); Sodium 137 mmol/L (136-145); Total Protein 5.9 g/dL (5.7-8.2)
[2024-10-31 16:39] LABS: Alkaline Phosphatase 132 U/L (46-116); Bilirubin, Total 0.2 mg/dL (0.2-1.0); Blood Urea Nitrogen 7 mg/dL (9-23); Calcium 8.6 mg/dL (8.7-10.4); Glucose 153 mg/dL (74-106); Lipase 56 U/L (12-53)
--- NOTE | 2024-10-31 19:31 | DVH ---
ULTRASOUND ABDOMEN, LIMITED RIGHT UPPER QUADRANT: REASON FOR EXAM: Bilateral upper abdominal pain. The patient states history of Whipple procedure 10/04 24. TECHNIQUE: Real-time sector scans in the transverse and longitudinal planes were obtained through th e right upper quadrant of the abdomen. FINDINGS: The liver is of normal size and contour. There is no intrahepatic nor extrahepatic biliar y ductal dilatation. The common bile duct measures 10 mm. The gallbladder appears distended. There is sludge within the gallbladder. No gallstone is identified. There is no gallbladder wall thickenin g nor pericholecystic fluid. There is no sonographic Cleary's sign. The visualized portion of the pancreas demonstrates several coarse calcifications. The right kidney measures 9.8 cm. No hydronephrosis or nephrolithiasis is identified. There is no e vidence of right renal mass or cyst. The visualized portions of the abdominal aorta demonstrate no evidence of aneurysmal dilatation. The visualized inferior vena cava is unremarkable. There is no free fluid identified in the right upper quadrant. IMPRESSION: The gallbladder is moderately distended and contains sludge. The common bile duct is dilated at 10 mm , increased compared with the prior study. If there is concern for choledocholithiasis, MRCP can be p erformed.
[2024-10-31 19:55] VITALS: RESP 13; O2SAT 98
[2024-10-31] MEDS: SODIUM CHLORIDE 0.9% 1,000 ML IV ONE (20:30)
[2024-10-31] MEDS: HYDROmorphone HCL 2 MG/ML VL/or syr IV ONE (21:22)
[2024-10-31 21:45] VITALS: PULSE 89; RESP 13; O2SAT 98
[2024-10-31] MEDS ORDERED: ONDANSETRON HCL 4 MG/2 ML VIAL IV PRN (21:45)
[2024-10-31] MEDS ORDERED: HYDROcodone-ACET 5/325MG TAB PO PRN (21:45)
[2024-10-31] MEDS ORDERED: ACETAMINOPHEN 325 MG TAB PO PRN (21:45)
[2024-10-31] MEDS: SODIUM CHLORIDE 0.9% 1,000 ML IV SCH (22:11)
--- NOTE | 2024-10-31 22:19 | DVHHP2 ---
History of Present Illness Reason for Visit: Intractable abdominal pain History of Present Illness The patient is a 54-year-old male with past medical history of anxiety and pancreatitis who presented to [facility] ED with complaint of acute abdominal pain. Patient reports has been experiencing generalized abdominal pain rating 8/10 numeric scale, had a Whipple procedure done on 08/27/2024. Patient was seen and evaluated in the ED, laboratory data shows WBC 6.8, platelets 397, sodium 137, potassium 4.3, BUN 7, creatinine 0.54, glucose 153, calcium 8.6, lipase 56, troponin < 3, blood pressure 99/72, heart rate 86, temperature 98.2 F, O2 saturation 97% on room air. Single organ ultrasound revealing gallbladder is moderately distended and contains sludge; the common bile duct is dilated at 10 mm, increased compared with the prior study; if there is concern for choledocholithiasis, MRCP can be performed. Patient was given Dilaudid 1 mg IV x1, please see medication orders section in the computer. On my assessment, patient denied chest pain, no headache, no dizziness, no diaphoresis, no shortness of breath, no nausea, no vomiting, no fever, no chills. Patient was admitted for further evaluation and medical management. Past Medical History Anxiety, Pancreatitis Past Surgical History Hernia Repair, Whipple procedure 2 weeks ago Family History Reviewed, noncontributory to the management of this case. Past Social History The patient lives at home, denies smoking, alcohol or illicit drugs abuse. Review of Systems Constitutional: No: Fever, Chills, Sweats, Weakness, Malaise, Other Eyes: No: Pain, Vision change, Conjunctivae inflammation, Eyelid inflammation, Other, Redness ENT: No: Ear pain, Ear discharge, Nose pain, Nose discharge, Nose congestion, Mouth pain, Mouth swelling, Throat pain, Throat swelling, Other Respiratory: No: Cough, Dry, Shortness of breath, SOB with excertion, Wheezing, Hemoptysis, Pleuritic Pain, Sputum, Wheezing, Other Cardiovascular: No: Chest Pain, Palpitations, Orthopnea, Paroxysmal Noc. Dyspnea, Edema, Lt Headedness, Other Gastrointestinal: Nausea, Abdominal Pain; No: Vomiting, Diarrhea, Constipation, Melena, Hematochezia, Other Genitourinary: No Dysuria, No Frequency, No Incontinence, No Hematuria, No Retention, No Other Musculoskeletal: No: other, neck pain, shoulder pain, arm pain, back pain, hand pain, leg pain, foot pain Skin: Other (Surgical scar lower abdomen); No: Rash, Lesions, Jaundice, Bruising Neurological: No: Weakness, Numbness, Incoordination, Change in speech, Confusion, Seizures, Other Allergies: Coded Allergies: NO KNOWN ALLERGIES (Unverified , 02/16/24) Medications Current Medications Medications Dose Ordered Sig/Desean Route Start Time Stop Time Status Last Admin Dose Admin Sodium Chloride 1,000 ml @ 60 mls/hr [id number] IV 10/31/24 21:45 10/31/24 22:11 60 MLS/HR Acetaminophen/ Hydrocodone Bitart 1 tab Q4HP PRN PO 10/31/24 21:45 Ondansetron HCl 4 mg Q4HP PRN IV 10/31/24 21:45 Docusate Sodium 100 mg BIDPRN PRN PO 10/31/24 21:45 Acetaminophen 650 mg Q6HP PRN PO 10/31/24 21:45 Morphine Sulfate 2 mg Q4HPRN PRN IV 10/31/24 21:45 Exam Vital Signs Vital Signs Date Time Temp Pulse Resp B/P (MAP) Pulse Ox O2 Delivery O2 Flow Rate FiO2 10/31/24 21:22 86 16 108/75 10/31/24 18:56 97 10/31/24 15:45 Room Air* 0 21 10/31/24 15:45 98.2 98.2 General Appearance: Alert, Oriented X3, Cooperative, No acute distress HEENT: Atraumatic, PERRLA, EOMI, Mucous membr. moist/pink Respiratory: Clear to auscultation, Normal air movement Cardiovascular: Regular rate, Normal S1, Normal S2, No murmurs Abdominal: Normal bowel sounds, Soft, No hepatospenomegaly, No masses, Other (Reports tenderness) Extremities: No clubbing, No cyanosis, No edema, Normal pulses, No tenderness/swelling Skin: No rashes, No breakdown, No significant lesion Neuro: Normal speech, Normal tone, Sensation intact, Cranial nerves 3-12 NL, Reflexes 2+, Other (Generalized weakness) Psych/Mental Status: Mental status NL, Mood NL Labs/Xrays Labs Test 10/31/24 17:04 10/31/24 15:56 Range/Units Troponin I High Sensitivity < 3 L </=54 ng/L White Blood Count 6.8 4.4-10.8 10^3/uL Red Blood Count 3.96 L 4.5-5.90 10^6/uL Hemoglobin 12.8 L 13.5-17.5 g/dL Hematocrit 37.2 L 41.0-53.0 % Mean Corpuscular Volume 93.9 80.0-100.0 fL Mean Corpuscular Hemoglobin 32.3 H 28.0-32.0 pg Mean Corpuscular Hemoglobin Concent 34.4 32.0-36.0 g/dL Red Cell Distribution Width 14.0 11.8-14.3 % Platelet Count 397 140-450 10^3/uL Mean Platelet Volume 6.8 L 6.9-10.8 fL Neutrophils (%) (Auto) 61.0 37.0-80.0 % Lymphocytes (%) (Auto) 27.7 10.0-50.0 % Monocytes (%) (Auto) 8.1 0.0-12.0 % Eosinophils (%) (Auto) 2.5 0.0-7.0 % Basophils (%) (Auto) 0.7 0.0-2.0 % Neutrophils # (Auto) 4.2 1.6-8.6 10 ^3/uL Lymphocytes # (Auto) 1.9 0.4-5.4 10 ^3/uL Monocytes # (Auto) 0.6 0-1.3 10 ^3/uL Eosinophils # (Auto) 0.2 0-0.8 10 ^3/uL Basophils # (Auto) 0 0-0.2 10 ^3/uL Nucleated Red Blood Cells 0.1 % Sodium Level 137 136-145 mmol/L Potassium Level 4.3 3.5-5.1 mmol/L Chloride Level 104 98-107 mmol/L Carbon Dioxide Level 27 20-31 mmol/L Anion Gap 6 5-15 Blood Urea Nitrogen 7 L 9-23 mg/dL Creatinine 0.54 L 0.700-1.30 mg/dL Glomerular Filtration Rate Calc 118 >90 mL/min BUN/Creatinine Ratio 13.0 10.0-20.0 Serum Glucose 153 H 74-106 mg/dL Calcium Level 8.6 L 8.7-10.4 mg/dL Total Bilirubin 0.2 0.2-1.0 mg/dL Aspartate Amino Transferase (AST) 19 13-40 U/L Alanine Aminotransferase (ALT) 15 7-40 U/L Alkaline Phosphatase 132 H 46-116 U/L Total Protein 5.9 5.7-8.2 g/dL Albumin 3.8 3.2-4.8 g/dL Lipase 56 H 12-53 U/L PATIENT: BC STERLING EDWARDACCT: [id number] UNIT: [id number] : 1970 LOC: ER ROOM / BED: / AGE / SEX: 54 / M ADM STATUS: REG ER SERVICE 13 ORDERING PHYSICIAN: LIDIA GRAY PROCEDURE(s): ABDL - ABDOMEN LIMITED REASON: Bilateral upper abdominal pain ORDER NUMBER(s): [id number], ACCESSION NUMBER(s): [id number] ULTRASOUND ABDOMEN, LIMITED RIGHT UPPER QUADRANT: REASON FOR EXAM: Bilateral upper abdominal pain. The patient states history of Whipple procedure 09/2024. TECHNIQUE: Real-time sector scans in the transverse and longitudinal planes were obtained through the right upper quadrant of the abdomen. FINDINGS: The liver is of normal size and contour. There is no intrahepatic nor extrahepatic biliary ductal dilatation. The common bile duct measures 10 mm. The gallbladder appears distended. There is sludge within the gallbladder. No gallstone is identified. There is no gallbladder wall thickening nor pericholecystic fluid. There is no sonographic Cleary's sign. The visualized portion of the pancreas demonstrates several coarse calcifications. The right kidney measures 9.8 cm. No hydronephrosis or nephrolithiasis is identified. There is no evidence of right renal mass or cyst. The visualized portions of the abdominal aorta demonstrate no evidence of aneurysmal dilatation. The visualized inferior vena cava is unremarkable. There is no free fluid identified in the right upper quadrant. IMPRESSION: The gallbladder is moderately distended and contains sludge. The common bile duct is dilated at 10 mm, increased compared with the prior study. If there is concern for choledocholithiasis, MRCP can be performed. SEPSIS Sepsis Screen Date sepsis recognized/suspect: Oct 31, 2024 Time Sepsis recognized/suspect: 1544 Recent Procedure: No On Antibiotic Therapy: No Respiratory Rate >20: No Heart Rate >90: Yes Temp<36 C (96.8 F) or >38.3 C: No SBP <90 or MAP <65 mmHG: No New Acute Mental Status Change: No Is the patient on CPAP, BIPAP,: No Physician Orders Troponin-I Hs (11/01/24 00:00) Troponin-I Hs (11/01/24 03:00) Urinalysis (10/31/24 15:39) Heplock Iv (10/31/24 15:39) Electrocardigram (10/31/24 15:39) Abdomen Limited (10/31/24 18:14) Hemoglobin A1c (10/31/24 21:40) * Gi Dvh Compressor Operator Adjuster (10/31/24 21:40) * Surgical Consult (10/31/24 ) Allergies (10/31/24 21:40) Code Status (10/31/24 21:40) Sodium Chloride 0.9% (10/31/24 21:45) Oxygen Per Hour (10/31/24 21:40) Hydrocodone-Acet 5/325mg Tab (Draper 5/32 (10/31/24 21:45) Ondansetron Hcl (Zofran) (10/31/24 21:45) Docusate Sodium Capsule (Colace Capsule) (10/31/24 21:45) Complete Blood Count (11/01/24 04:00) Comprehensive Metabolic Panel (11/01/24 04:00) Condition: Serious (10/31/24 21:40) Acetaminophen Tablet (Tylenol Tablet) (10/31/24 21:45) Clear Liq Diet (11/01/24 Breakfast) Bedrest With Bathroom Privileg (10/31/24 21:40) Morphine Sulfate Injection (10/31/24 21:45) Sequential Compression Device (10/31/24 ) Vital Signs Date Time Temp Pulse Resp B/P (MAP) Pulse Ox O2 Delivery O2 Flow Rate FiO2 10/31/24 21:22 86 16 108/75 10/31/24 18:56 65 10 99/72 (81) 97 10/31/24 16:02 94/69 10/31/24 16:00 88 10/31/24 15:45 94 10 98 Room Air* 0 21 10/31/24 15:45 98.2 94 10 95/66 (76) 98 98.2 10/31/24 15:39 97 10/31/24 15:25 97.4 100 18 87/63 99 97.4 Laboratory Tests Test 10/31/24 15:56 White Blood Count 6.8 10^3/uL (4.4-10.8) Medications Medications Dose Ordered Sig/Desean Route Start Time Stop Time Status Last Admin Dose Admin Fentanyl Citrate 50 mcg ONCE ONCE IV 10/31/24 15:45 10/31/24 15:46 DC 10/31/24 16:02 50 MCG Hydromorphone HCl 1 mg ONCE ONCE IV 10/31/24 21:00 10/31/24 21:01 DC 10/31/24 21:22 1 MG Ondansetron HCl 4 mg ONCE ONCE IV 10/31/24 15:45 10/31/24 15:46 DC 10/31/24 16:01 4 MG Sodium Chloride 500 ml @ 500 mls/hr Q1H ONCE IV 10/31/24 15:45 10/31/24 16:44 DC 10/31/24 16:01 500 MLS/HR Sodium Chloride 1,000 ml @ 60 mls/hr [id number] IV 10/31/24 21:45 10/31/24 22:11 60 MLS/HR Sodium Chloride 1,000 ml @ 1,000 mls/hr Q1H ONCE IV 10/31/24 20:30 10/31/24 21:29 DC 10/31/24 20:30 1,000 MLS/HR Assessment/Plan Assessment/Plan Cholecystitis Chronic pancreatitis Intractable abdominal pain Plan 1. Admit to med surge unit 2. Breathing treatment 3. Pain control management 4. Management of fluids and electrolytes 5. Consultation for GI/hospitalist 6. Diagnostic tests single organ ultrasound 7. DVT prophylaxis-on SCDs 8. Repeat labs CBC, CMP in a.m. 9. Continue with current medical management 10. Treatment plan discussed with patient and RN. Patient verbalized understanding. Plan discussed with: Patient, Other (RN) My Orders Orders - PIERRE BUCKNER DNP Procedure Category Date Status Time Hemoglobin A1c LAB 10/31/24 In Process 21:40 * Gi Dvh Compressor Operator Adjuster CONS 10/31/24 Transmitted 21:40 * Surgical Consult CONS 10/31/24 Transmitted Allergies JAMES 10/31/24 In Process 21:40 Code Status CODE 10/31/24 Transmitted 21:40 Sodium Chloride 0.9% PHA 10/31/24 In Process 21:45 Oxygen Per Hour RT 10/31/24 Transmitted 21:40 Hydrocodone-Acet PHA 10/31/24 In Process 5/325mg Tab (Draper 21:45 Ondansetron Hcl PHA 10/31/24 In Process (Zofran) 21:45 Docusate Sodium PHA 10/31/24 In Process Capsule (Colace 21:45 Complete Blood Count LAB 11/01/24 Verified 04:00 Comprehensive LAB 11/01/24 Verified Metabolic Panel 04:00 Condition: Serious JAMES 10/31/24 In Process 21:40 Acetaminophen Tablet PHA 10/31/24 In Process (Tylenol Tablet) 21:45 Clear Liq Diet DIET 11/01/24 Transmitted Breakfast Bedrest With Bathroom JAMES 10/31/24 In Process Privileg 21:40 Morphine Sulfate PHA 10/31/24 In Process Injection 21:45 Sequential JAMES 10/31/24 In Process Compression Device Problem List: (1) Cholecystitis (2) Chronic pancreatitis (3) Intractable abdominal pain Date of Service: Oct 31, 2024 Billing Provider: PIERRE BUCKNER DNP Common Visit Codes: [id number] INP/OBS CARE (HIGH) PIERRE BUCKNER DNP Oct 31, 2024 22:19
[2024-10-31] MEDS ORDERED: MORPHINE SULFATE INJ 2 MG/ml SYRG IV PRN (22:30)
[2024-10-31] MEDS ORDERED: NITROGLYCERIN 0.4 MG SL TAB SL PRN (22:30)
[2024-11-01] VITALS (7 sets, daily range): BP systolic 99–114; BP diastolic 69–74; PULSE 80–91; RESP 17–20; TEMP 97.3–98; O2SAT 94–97
[2024-11-01] MEDS: MORPHINE SULFATE INJ 2 MG/ml SYRG IV PRN (01:13)
[2024-11-01] MEDS: HYDROmorphone HCL 2 MG/ML VL/or syr IV PRN (04:37)
[2024-11-01] MEDS ORDERED: PANC1CAP54 PO (06:53)
[2024-11-01] MEDS ORDERED: HYDR-4072 PO (06:53)
[2024-11-01] MEDS ORDERED: HYDR1TAB97 (06:53)
[2024-11-01] MEDS ORDERED: NICO21DI37 TOP (06:53)
[2024-11-01 07:54] LABS: Hematocrit 35.0 % (41.0-53.0); Hemoglobin 12.0 g/dL (13.5-17.5); Mean Corpuscular Hemoglobin 32.1 pg (28.0-32.0); Mean Corpuscular Volume 93.7 fL (80.0-100.0); Nucleated Red Blood Cells % 0.0 %
[2024-11-01 08:09] LABS: Alanine Aminotransferase 13 U/L (7-40); Anion Gap 3 (5-15); Calcium 8.9 mg/dL (8.7-10.4); Carbon Dioxide 27 mmol/L (20-31); Chloride 106 mmol/L (98-107); Glucose 85 mg/dL (74-106); Potassium 4.3 mmol/L (3.5-5.1); Sodium 136 mmol/L (136-145); Total Protein 5.8 g/dL (5.7-8.2)
[2024-11-01 08:10] LABS: Albumin 3.7 g/dL (3.2-4.8)
[2024-11-01 08:18] LABS: Alkaline Phosphatase 124 U/L (46-116); BUN/Creatinine Ratio 9.8 (10.0-20.0); Bilirubin, Total 0.2 mg/dL (0.2-1.0); Blood Urea Nitrogen < 5 mg/dL (9-23)
[2024-11-01 09:52] LABS: Urine Protein, UAD Negative (Negative)
[2024-11-01] MEDS: cefTRIAXone 1GM/50ML D5W 50 ML IV SCH (10:00)
--- NOTE | 2024-11-01 10:06 | DVHPN2 ---
Progress Note Date Seen: Nov 01, 2024 Medical Necessity Reason Pt with a Central, PICC or Fol: No Objective vital signs Vital Sign Date Time Temp Pulse Resp B/P (MAP) Pulse Ox O2 Delivery O2 Flow Rate FiO2 11/01/24 09:18 99 16 108/96 11/01/24 05:00 97.3 97 97.3 11/01/24 02:30 Room Air* 0 21 Total Intake and Output 10/31/24 10/31/24 11/01/24 15:00 23:00 07:00 Intake Total 500 ml 240 ml Balance 500 ml 240 ml medications Current Medications Medications Dose Ordered Sig/Desean Route Start Time Stop Time Status Last Admin Dose Admin Sodium Chloride 1,000 ml @ 60 mls/hr [id number] IV 10/31/24 21:45 10/31/24 22:11 60 MLS/HR Acetaminophen/ Hydrocodone Bitart 1 tab Q4HP PRN PO 10/31/24 21:45 Ondansetron HCl 4 mg Q4HP PRN IV 10/31/24 21:45 Docusate Sodium 100 mg BIDPRN PRN PO 10/31/24 21:45 Acetaminophen 650 mg Q6HP PRN PO 10/31/24 21:45 Nitroglycerin 0.4 mg Q5MINP PRN SL 10/31/24 22:30 Morphine Sulfate 2 mg Q30M PRN IV 10/31/24 22:30 Hydromorphone HCl 1 mg Q4HPRN PRN IV 11/01/24 04:00 11/01/24 09:18 1 MG Ceftriaxone Sodium 50 ml @ 100 mls/hr DAILY@09 IV 11/01/24 10:00 Metronidazole 100 ml @ 100 mls/hr Q8HR IV 11/01/24 14:00 laboratory and microbiology Laboratory Tests 11/01/24 07:12 Test 11/01/24 07:12 Range/Units Serum Glucose 85 74-106 mg/dL Problem List/Assessment/Plan Problem List/Assessment/Plan 11/01/24 PATIENT HAD A WHIPPLE PROCEDURE ABOUT 7 WEEKS AGO, WAS HOSPITALIZED HERE TWO WEEKS AGO WITH CHEST PAIN AND SOB DIAGNOSED WITH PNEUMONIA, NOW C/O PERSISTENT ABDOMINAL PAIN IN THE RIGHT UPPER ABDOMEN RADIATING TO HIS RIGHT SHOULDER. ABDOMEN TENDER IN THE RUQ, WILL ORDER HIDA SCAN AND CT WITH CONTRAST, KEEP NPO, WILL FOLLOW Plan discussed with: Patient, Other LORRI HERNANDEZ MD Nov 01, 2024 10:06
[2024-11-01] MEDS: OMNIPAQUE 12mg/ml 500ml ORAL SOLUTION PO ONE (10:58)
[2024-11-01] MEDS: IOHEXOL 300 MG/ML 100ML BOTTLE IJ ONE (13:51)
--- NOTE | 2024-11-01 14:23 | DVH ---
Indication: PAIN S/P PANCREATICODUODENECTOMY FOR CHRONIC PANCREATITIS, Technique: CT axial images of the abdomen and pelvis are obtained with intravenous contrast. Coronal and sagittal reformats were obtained. Radiation Dose Information: CTDI volume is 5 mGy. Dose-length product is 256 mGy*cm Comparison: CT CT AB PEL WO CON-NO ORAL OR IV on DOS: 10/19/24, 03/18/2024 FINDINGS: Lung bases demonstrate no pleural effusion. Adrenal glands, spleen unremarkable. Pancreatic calcifications consistent with chronic pancreatitis c hanges. Heterogeneous lesion/ mass in the pancreatic head region measuring 3.1 x 3.2 cm that is relat ively hypoenhancing. There is dilatation of the CBD up to 10 mm with abrupt tapering near the pancre atic head / ampullary region. Dilatation of the common hepatic duct to 10 mm. Gallbladder distention. The previously described cystic lesion near the pancreatic uncinate process is less conspicuous on t his examination. Heterogeneous lesion within the right anterior hepatic lobe that appears hypodense/ multi-septated me asuring 1.1 cm with peripheral hyperemia. Kidneys demonstrate no hydronephrosis. Gastric distention. Small bowel loops are normal in caliber. Moderate volume stool within the colon. Postsurgical changes small bowel within the left lower quadr ant of the abdomen. Abdominal aortic atherosclerotic disease. Bladder partially distended. No free pelvic fluid. No ingui nal lymphadenopathy. [id number] bilateral sacroiliac degenerative joint disease. [id number] thoracolumbar degenerative disc disease. IMPRESSION: Heterogeneous lesion/ mass in the pancreatic head region that is hypoenhancing measuring 3.1 x 3.2 cm concerning for potential pancreatic mass /neoplasm. Recommend GI and surgical consultation for furt her evaluation. Dilatation of the common bile duct, intrahepatic ducts which is new from the previous examination fro m 03/18/2024 with abrupt tapering near the pancreatic head / periampullary region, also raising amanda rn for potential pancreatic mass /neoplasm. Other considerations would include obstructing ampullary/ biliary etiology, stricture Pancreatic calcifications consistent with chronic pancreatitis changes. Right anterior hepatic lobe multi-septated hypodense lesion measuring 11 mm with peripheral hyperemia . Recommend multiphasic MRI abdomen with and without contrast to further characterize. Postsurgical changes small bowel. Moderate volume stool within the large bowel. Atherosclerotic disease. Other findings as described.
--- NOTE | 2024-11-01 17:44 | DVHINCON2 ---
Date of service: Nov 01, 2024 Referring Physician Unruly Whipple History of Present Illness The patient is a 54-year-old male with past medical history of anxiety and pancreatitis who presented to [facility] ED with complaint of acute abdominal pain. Patient reports has been experiencing generalized abdominal pain rating 8/10 numeric scale, had a Whipple procedure done on 08/27/2024. Single organ ultrasound revealing gallbladder is moderately distended and contains sludge; the common bile duct is dilated at 10 mm, increased compared with the prior study; Patient was given Dilaudid 1 mg IV x1, . Patient was recently hospitalized for similar symptoms and treated conservatively. He is supposed to follow up at [facility] [place] Patient was seen at bedside this morning, continues to complain of nausea and abdominal pain, asking for his pain medicine, patient is drinking contrast for his CT Past Medical History Past Medical History Anxiety, chronic Pancreatitis Past Surgical History Past Surgical History Hernia Repair, Whipple procedure 2 months Family History: Patient reports no known family medical history. Allergies: Coded Allergies: NO KNOWN ALLERGIES (Unverified , 02/16/24) Home Meds Reported Medications Nicotine (Nicotine Transdermal Syst) 21 Mg/24 Hr Dis, TOP 11/01/24 Hydrocodone-Acetaminophen (Hydrocodone/Acetaminophen 10-325 mg) 1 Tab Tab, 1 TAB PO Q4HP PRN for PAIN SCALE 7 THRU 10 11/01/24 Pancreatic Enzymes (Creon) 12,000 [place]t [place], [address] UNT PO TID, CAP 11/01/24 Discontinued Scripts Lactulose (Lactulose) 10 Gm/15 Ml Molly, 30 ML PO DAILY PRN for 10 Days, #300 ML Prov:ANNE MARIE COWAN STERILE TECH 10/19/24 Current Medications Current Medications Medications (Trade) Dose Ordered Sig/Desean Route PRN Reason Start Time Stop Time Status Last Admin Sodium Chloride 1,000 ml @ 60 mls/hr [id number] IV 10/31/24 21:45 11/01/24 14:25 Acetaminophen/ Hydrocodone Bitart ([place] 5/325MG Tab) 1 tab Q4HP PRN PO MODERATE PAIN (4-6 PAIN SCALE) 10/31/24 21:45 Ondansetron HCl (Zofran) 4 mg Q4HP PRN IV NAUSEA / VOMITING 10/31/24 21:45 Docusate Sodium (Colace Capsule) 100 mg BIDPRN PRN PO FOR CONSTIPATION 10/31/24 21:45 Acetaminophen (Tylenol Tablet) 650 mg Q6HP PRN PO PAIN SCALE 1-3 OR TEMP>100.4 10/31/24 21:45 Morphine Sulfate 2 mg Q4HPRN PRN IV SEVERE PAIN (7-10 PAIN SCALE) 10/31/24 21:45 11/01/24 04:20 DC 11/01/24 01:13 Nitroglycerin (Ntrostat Sublingual) 0.4 mg Q5MINP PRN SL FOR CHEST PAIN 10/31/24 22:30 Morphine Sulfate 2 mg Q30M PRN IV FOR CHEST PAIN 10/31/24 22:30 Hydromorphone HCl (Dilaudid Injection) 1 mg Q4HPRN PRN IV SEVERE PAIN (7-10 PAIN SCALE) 11/01/24 04:00 11/01/24 13:42 Ceftriaxone Sodium 50 ml @ 100 mls/hr DAILY@09 IV 11/01/24 10:00 11/01/24 10:00 Metronidazole 100 ml @ 100 mls/hr Q8HR IV 11/01/24 14:00 11/01/24 14:00 Vital Signs Vital Signs Date Time Temp Pulse Resp B/P (MAP) Pulse Ox O2 Delivery O2 Flow Rate FiO2 11/01/24 17:00 97.7 80 20 111/71 (84) 94 97.7 11/01/24 02:30 Room Air* 0 21 Physical Exam General Appearance: Alert, Oriented X3, Cooperative, No acute distress; cachexia HEENT: Atraumatic, PERRLA, EOMI, Mucous membr. moist/pink Respiratory: Clear to auscultation, Normal air movement Cardiovascular: Regular rate, Normal S1, Normal S2, No murmurs Abdominal: Normal bowel sounds, Soft, No hepatospenomegaly, No masses, thin scaphoid mildly tender Extremities: No clubbing, No cyanosis, No edema, Normal pulses, No tenderness/swelling Skin: No rashes, No breakdown, No significant lesion Neuro: Normal speech, Normal tone, Sensation intact, Cranial nerves 3-12 NL, Reflexes 2+, Other (Generalized weakness) Psych/Mental Status: Mental status NL, Mood NL Labs/Diagnostic Data Labs Test 11/01/24 09:20 11/01/24 07:12 10/31/24 17:04 10/31/24 15:56 Range/Units Urine Color Light-yellow Yellow Urine Clarity Clear Clear Urine pH 5.5 5.0-9.0 Urine Specific [place] 1.009 1.001-1.035 Urine Protein Negative Negative Urine Ketones Negative Negative Urine Blood Negative Negative /uL Urine Nitrite Negative Negative Urine Bilirubin Negative Negative Urine Urobilinogen Normal Negative mg/dL Urine Leukocyte Esterase Negative Negative /uL Urine RBC 1 0 - 3 /hpf Urine Microscopic WBC < 1 0-3 /HPF Urine Squamous Epithelial Cells None seen <5 /hpf Urine Bacteria None seen None Seen /hpf Urine Glucose Normal Normal mg/dL White Blood Count 7.1 4.4-10.8 10^3/uL Red Blood Count 3.73 L 4.5-5.90 10^6/uL Hemoglobin 12.0 L 13.5-17.5 g/dL Hematocrit 35.0 L 41.0-53.0 % Mean Corpuscular Volume 93.7 80.0-100.0 fL Mean Corpuscular Hemoglobin 32.1 H 28.0-32.0 pg Mean Corpuscular Hemoglobin Concent 34.2 32.0-36.0 g/dL Red Cell Distribution Width 14.2 11.8-14.3 % Platelet Count 355 140-450 10^3/uL Mean Platelet Volume 6.9 6.9-10.8 fL Neutrophils (%) (Auto) 58.5 37.0-80.0 % Lymphocytes (%) (Auto) 29.5 10.0-50.0 % Monocytes (%) (Auto) 9.4 0.0-12.0 % Eosinophils (%) (Auto) 2.0 0.0-7.0 % Basophils (%) (Auto) 0.6 0.0-2.0 % Neutrophils # (Auto) 4.1 1.6-8.6 10 ^3/uL Lymphocytes # (Auto) 2.1 0.4-5.4 10 ^3/uL Monocytes # (Auto) 0.7 0-1.3 10 ^3/uL Eosinophils # (Auto) 0.1 0-0.8 10 ^3/uL Basophils # (Auto) 0 0-0.2 10 ^3/uL Nucleated Red Blood Cells 0.0 % Sodium Level 136 136-145 mmol/L Potassium Level 4.3 3.5-5.1 mmol/L Chloride Level 106 98-107 mmol/L Carbon Dioxide Level 27 20-31 mmol/L Anion Gap 3 L 5-15 Blood Urea Nitrogen < 5 L 9-23 mg/dL Creatinine 0.51 L 0.700-1.30 mg/dL Glomerular Filtration Rate Calc 120 >90 mL/min BUN/Creatinine Ratio 9.8 L 10.0-20.0 Serum Glucose 85 74-106 mg/dL Calcium Level 8.9 8.7-10.4 mg/dL Total Bilirubin 0.2 0.2-1.0 mg/dL Aspartate Amino Transferase (AST) 18 13-40 U/L Alanine Aminotransferase (ALT) 13 7-40 U/L Alkaline Phosphatase 124 H 46-116 U/L Total Protein 5.8 5.7-8.2 g/dL Albumin 3.7 3.2-4.8 g/dL Troponin I High Sensitivity < 3 L </=54 ng/L Hemoglobin A1c 5.4 <5.7 % A1C Lipase 56 H 12-53 U/L Microbiology Date/Time Source Procedure Growth Status 11/01/24 06:49 Nose MRSA Screen - Final Complete ABD PELVIC CT SCAN WITH ORAL AND IV CONTRAST IMPRESSION: Heterogeneous lesion/ mass in the pancreatic head region that is hypoenhancing measuring 3.1 x 3.2 cm concerning for potential pancreatic mass /neoplasm. Recommend GI and surgical consultation for further evaluation. Dilatation of the common bile duct, intrahepatic ducts which is new from the previous examination from 03/18/2024 with abrupt tapering near the pancreatic head / periampullary region, also raising concern for potential pancreatic mass /neoplasm. Other considerations would include obstructing ampullary/ biliary etiology, stricture Pancreatic calcifications consistent with chronic pancreatitis changes. Right anterior hepatic lobe multi-septated hypodense lesion measuring 11 mm with peripheral hyperemia. Recommend multiphasic MRI abdomen with and without contrast to further characterize. Postsurgical changes small bowel. Moderate volume stool within the large bowel. Atherosclerotic disease. Problems(with codes): (1) Abnormal finding on GI tract imaging (2) Chronic pancreatitis (3) Acute abdominal pain (4) Acute on chronic pancreatitis Plan/Recommendation Plan Check CA 19-9, lipase level Clear liquid diet IV PPI Pancreatic enzyme supplements Surgical follow up appreciated Monitor labs Pain control Prognosis remains guarded Plan discussed with: Patient GISELLE ALY MD Nov 01, 2024 17:44
[2024-11-01] MEDS: PANTOPRAZOLE 40 MG/10 ML VIAL INJ IV SCH (21:59)
[2024-11-02] VITALS (7 sets, daily range): BP systolic 98–112; BP diastolic 56–83; PULSE 72–87; RESP 16–17; TEMP 97–98.4; O2SAT 95–98
--- NOTE | 2024-11-02 11:17 | DVHPN2 ---
Subjective Note for 11/01/2024 Patient doing well, abdominal pain continues using prn medications. Reviewed: H&P Changes from previous H/P or p: No Changes General: Per HPI Eyes: No Pain, No Vision change, No Conjunctivae inflammation, No Eyelid inflammation, No Other, No Redness ENT: No Ear pain, No Ear discharge, No Nose pain, No Nose discharge, No Nose congestion, No Mouth pain, No Mouth swelling, No Throat pain, No Throat swelling, No Other Cardiovascular: No Chest Pain, No Palpitations, No Orthopnea, No Paroxysmal Noc. Dyspnea, No Edema, No Lt Headedness, No Other Respiratory: No Cough, No Dry, No Shortness of breath, No SOB with excertion, No Wheezing, No Hemoptysis, No Pleuritic Pain, No Sputum, No Other Gastrointestinal: Nausea; No Vomiting; Abdominal Pain; No Diarrhea, No Constipation, No Melena, No Hematochezia, No Other Genitourinary: No Dysuria, No Frequency, No Incontinence, No Hematuria, No Retention, No Other Musculoskeletal: No other, No neck pain, No shoulder pain, No arm pain, No back pain, No hand pain, No leg pain, No foot pain Skin: No Rash, No Lesions, No Jaundice, No Bruising; Other (Surgical scar lower abdomen) Objective Vitals Vital Signs Date Time Temp Pulse Resp B/P (MAP) Pulse Ox O2 Delivery O2 Flow Rate FiO2 11/02/24 10:58 70 18 120/48 11/02/24 09:00 97.7 96 97.7 11/02/24 08:18 Room Air* 0 21 Intake/Output Intake and Output 11/02/24 07:00 Intake Total 2942 ml Output Total 1900 ml Balance 1042 ml Intake Oral 2742 ml IV Total 200 ml Output Urine Total 1900 ml Exam GEN: Healthy appearing, well-developed, NAD. HEENT: NC/AT; MMM. CV: RRR, no m/r/g. LUNGS: CTAB, no w/r/c. ABD: Soft, NT/ND, NBS, no masses or organomegaly. Tender to palpation right upper quadrant EXT: skin Warm, well perfused. no rashes. No clubbing, cyanosis, or edema. NEURO: Ambulating with no limitations. No focal deficits. Medications Current Medications Medications Dose Ordered Sig/Desean Route Start Time Stop Time Status Last Admin Dose Admin Sodium Chloride 1,000 ml @ 60 mls/hr [id number] IV 10/31/24 21:45 11/01/24 14:25 60 MLS/HR Acetaminophen/ Hydrocodone Bitart 1 tab Q4HP PRN PO 10/31/24 21:45 Ondansetron HCl 4 mg Q4HP PRN IV 10/31/24 21:45 Docusate Sodium 100 mg BIDPRN PRN PO 10/31/24 21:45 Acetaminophen 650 mg Q6HP PRN PO 10/31/24 21:45 Nitroglycerin 0.4 mg Q5MINP PRN SL 10/31/24 22:30 Morphine Sulfate 2 mg Q30M PRN IV 10/31/24 22:30 Hydromorphone HCl 1 mg Q4HPRN PRN IV 11/01/24 04:00 11/02/24 10:58 1 MG Ceftriaxone Sodium 50 ml @ 100 mls/hr DAILY@09 IV 11/01/24 10:00 11/02/24 09:06 100 MLS/HR Metronidazole 100 ml @ 100 mls/hr Q8HR IV 11/01/24 14:00 11/02/24 05:16 100 MLS/HR Pantoprazole Sodium 40 mg BID IV 11/01/24 22:00 11/02/24 09:31 40 MG Laboratory Results Laboratory Tests 11/01/24 07:12 Urinalysis Test 11/01/24 09:20 Urine Color Light-yellow (Yellow) Urine Clarity Clear (Clear) Urine pH 5.5 (5.0-9.0) Urine Specific [employer] 1.009 (1.001-1.035) Urine Protein Negative (Negative) Urine Ketones Negative (Negative) Urine Blood Negative /uL (Negative) Urine Nitrite Negative (Negative) Urine Bilirubin Negative (Negative) Urine Urobilinogen Normal mg/dL (Negative) Urine Leukocyte Esterase Negative /uL (Negative) Urine RBC 1 /hpf (0 - 3) Urine Microscopic WBC < 1 /HPF (0-3) Urine Squamous Epithelial Cells None seen /hpf (<5) Urine Bacteria None seen /hpf (None Seen) Urine Glucose Normal mg/dL (Normal) Microbiology Microbiology Date/Time Source Procedure Growth Status 11/01/24 06:49 Nose MRSA Screen - Final Complete Labs and/or images reviewed: Labs reviewed by me, Image(s) reviewed by me Assessment/Plan Assessment/Plan Note for 11/01/202411/01: Patient doing okay still having pain. Surgery has ordered CT abdomen with oral and IV contrast. We will follow up with study. Until then we will control pains with prn Intractable abdominal pain History of partially Whipple's procedure Chronic pancreatitis History alcohol abuse Plan: Continue pain control CT abdomen with contrast and oral contrast IV Zofran Continue home meds Med surge Full code Plan discussed with: Patient Date of Service: Nov 01, 2024 Billing Provider: ARMIN PORRAS MD Common Visit Codes: [id number] INP/OBS CARE(HIGH) ARMIN PORRAS MD Nov 02, 2024 11:17
--- NOTE | 2024-11-02 11:19 | DVHPN2 ---
Subjective Patient doing well, abdominal pain continues using prn medications. Reviewed: H&P Changes from previous H/P or p: No Changes General: Per HPI Eyes: No Pain, No Vision change, No Conjunctivae inflammation, No Eyelid inflammation, No Other, No Redness ENT: No Ear pain, No Ear discharge, No Nose pain, No Nose discharge, No Nose congestion, No Mouth pain, No Mouth swelling, No Throat pain, No Throat swelling, No Other Cardiovascular: No Chest Pain, No Palpitations, No Orthopnea, No Paroxysmal Noc. Dyspnea, No Edema, No Lt Headedness, No Other Respiratory: No Cough, No Dry, No Shortness of breath, No SOB with excertion, No Wheezing, No Hemoptysis, No Pleuritic Pain, No Sputum, No Other Gastrointestinal: Nausea; No Vomiting; Abdominal Pain; No Diarrhea, No Constipation, No Melena, No Hematochezia, No Other Genitourinary: No Dysuria, No Frequency, No Incontinence, No Hematuria, No Retention, No Other Musculoskeletal: No other, No neck pain, No shoulder pain, No arm pain, No back pain, No hand pain, No leg pain, No foot pain Skin: No Rash, No Lesions, No Jaundice, No Bruising; Other (Surgical scar lower abdomen) Objective Vitals Vital Signs Date Time Temp Pulse Resp B/P (MAP) Pulse Ox O2 Delivery O2 Flow Rate FiO2 11/02/24 10:58 70 18 120/48 11/02/24 09:00 97.7 96 97.7 11/02/24 08:18 Room Air* 0 21 Intake/Output Intake and Output 11/02/24 07:00 Intake Total 2942 ml Output Total 1900 ml Balance 1042 ml Intake Oral 2742 ml IV Total 200 ml Output Urine Total 1900 ml Exam GEN: Healthy appearing, well-developed, NAD. HEENT: NC/AT; MMM. CV: RRR, no m/r/g. LUNGS: CTAB, no w/r/c. ABD: Soft, NT/ND, NBS, no masses or organomegaly. Tender to palpation right upper quadrant EXT: skin Warm, well perfused. no rashes. No clubbing, cyanosis, or edema. NEURO: Ambulating with no limitations. No focal deficits. Medications Current Medications Medications Dose Ordered Sig/Desean Route Start Time Stop Time Status Last Admin Dose Admin Sodium Chloride 1,000 ml @ 60 mls/hr [id number] IV 10/31/24 21:45 11/01/24 14:25 60 MLS/HR Acetaminophen/ Hydrocodone Bitart 1 tab Q4HP PRN PO 10/31/24 21:45 Ondansetron HCl 4 mg Q4HP PRN IV 10/31/24 21:45 Docusate Sodium 100 mg BIDPRN PRN PO 10/31/24 21:45 Acetaminophen 650 mg Q6HP PRN PO 10/31/24 21:45 Nitroglycerin 0.4 mg Q5MINP PRN SL 10/31/24 22:30 Morphine Sulfate 2 mg Q30M PRN IV 10/31/24 22:30 Hydromorphone HCl 1 mg Q4HPRN PRN IV 11/01/24 04:00 11/02/24 10:58 1 MG Ceftriaxone Sodium 50 ml @ 100 mls/hr DAILY@09 IV 11/01/24 10:00 11/02/24 09:06 100 MLS/HR Metronidazole 100 ml @ 100 mls/hr Q8HR IV 11/01/24 14:00 11/02/24 05:16 100 MLS/HR Pantoprazole Sodium 40 mg BID IV 11/01/24 22:00 11/02/24 09:31 40 MG Laboratory Results Laboratory Tests 11/01/24 07:12 Urinalysis Test 11/01/24 09:20 Urine Color Light-yellow (Yellow) Urine Clarity Clear (Clear) Urine pH 5.5 (5.0-9.0) Urine Specific [place] 1.009 (1.001-1.035) Urine Protein Negative (Negative) Urine Ketones Negative (Negative) Urine Blood Negative /uL (Negative) Urine Nitrite Negative (Negative) Urine Bilirubin Negative (Negative) Urine Urobilinogen Normal mg/dL (Negative) Urine Leukocyte Esterase Negative /uL (Negative) Urine RBC 1 /hpf (0 - 3) Urine Microscopic WBC < 1 /HPF (0-3) Urine Squamous Epithelial Cells None seen /hpf (<5) Urine Bacteria None seen /hpf (None Seen) Urine Glucose Normal mg/dL (Normal) Microbiology Microbiology Date/Time Source Procedure Growth Status 11/01/24 06:49 Nose MRSA Screen - Final Complete Assessment/Plan Assessment/Plan 11/01: Patient doing okay still having pain. Surgery has ordered CT abdomen with oral and IV contrast. We will follow up with study. Until then we will control pains with prn 11/02: Patient pain continuing but appears tolerable. Patient appears comfortable, right upper quadrant pain is minimal. Imaging was suggesting gallbladder with stones dilated duct and pancreas head mass possibly obstructing the duct. Surgery and GI on board. We will request for notes from [place], patient was seen surgical oncology Dr. Betts. Diagnosis: Intractable abdominal pain History of partially Whipple's procedure Chronic pancreatitis History alcohol abuse Plan: Continue pain control CT abdomen with contrast and oral contrast IV Zofran Continue home meds Med surge Full code Plan discussed with: Patient Date of Service: Nov 02, 2024 Billing Provider: ARMIN PORRAS MD Common Visit Codes: [id number] INP/OBS CARE(HIGH) ARMIN PORRAS MD Nov 02, 2024 11:19
[2024-11-02] MEDS: HYDROcodone-ACET 10/325MG TAB PO PRN (13:05)
[2024-11-02] MEDS: ALPRAZolam 0.25 MG TAB PO PRN (15:37)
--- NOTE | 2024-11-02 15:47 | DVH ---
Procedure: NM NM HIDA SCAN Exam Date: 11/02/2024 02:14 PM Clinical History: R/O CHOLECYSTITIS Comparison Study: None Nuclear Medicine Hepatobiliary Scan. Technique: Following the intravenous administration of 6 mCi of technetium 99m labeled Choletec multiple planar abdominal planar images were obtained in anterior projection in 5 minute intervals for45 minutes . Ri ght lateral images were obtained at 45 minutes after injection. Findings: The liver appears grossly normal in size. There is no abnormal persistence of the cardiac or blood po ol activity. Cystic duct obstruction non visualiation of gallbladder. excretion of activity into t he small bowel. Impression: Cystic duct obstruction non visualiation of gallbladder.
[2024-11-02] MEDS: DOCUSATE SOD 100 MG CAP PO PRN (19:31)
--- NOTE | 2024-11-02 19:34 | DVHPN2 ---
Progress Note Date Seen: Nov 02, 2024 Resident Creating Document: [place] RESIDENT Has the PT tested + for MRSA If YES, has PT been informed?: No Medical Necessity Reason Pt with a Central, PICC or Fol: No Subjective Review of Systems * Patient evaluated by me for ongoing post-Whipple abdominal pain. * HIDA scan reveals cystic duct obstruction with non-visualization of the gallbladder. * Abdominal ultrasound shows a moderately distended gallbladder with sludge, and a dilated CBD (10 mm) without evidence of gallstones. * CT abdomen/pelvis with contrast identifies: * Hypoenhancing mass in pancreatic head (3.1 x 3.2 cm) concerning for malignancy. * Pancreatic calcifications, consistent with chronic pancreatitis. * Dilated CBD and intrahepatic ducts with abrupt tapering near ampulla. * Labs notable for: * Alk Phos: 124 (?) * Lipase: 3.7 (WNL) * Total bili: 0.2, AST: 18, ALT: 13 * Hgb: 12.0, WBC: 7.1 * CA 19-9 and AFP pending * Pain managed with IV Dilaudid. * Tolerating clear liquids via PO route. * No antibiotics administered currently. * No enteral/parenteral feeds started at this time. Objective vital signs Vital Sign Date Time Temp Pulse Resp B/P (MAP) Pulse Ox O2 Delivery O2 Flow Rate FiO2 11/02/24 19:31 80 16 105/65 11/02/24 17:00 98.3 98 98.3 11/02/24 08:18 Room Air* 0 21 Total Intake and Output 11/01/24 11/01/24 11/02/24 15:00 23:00 07:00 Intake Total 712 ml 710 ml 1520 ml Output Total 775 ml 1125 ml Balance 712 ml -65 ml 395 ml medications Current Medications Medications Dose Ordered Sig/Desean Route Start Time Stop Time Status Last Admin Dose Admin Sodium Chloride 1,000 ml @ 60 mls/hr [id number] IV 10/31/24 21:45 11/01/24 14:25 60 MLS/HR Ondansetron HCl 4 mg Q4HP PRN IV 10/31/24 21:45 Docusate Sodium 100 mg BIDPRN PRN PO 10/31/24 21:45 11/02/24 19:31 100 MG Acetaminophen 650 mg Q6HP PRN PO 10/31/24 21:45 Nitroglycerin 0.4 mg Q5MINP PRN SL 10/31/24 22:30 Morphine Sulfate 2 mg Q30M PRN IV 10/31/24 22:30 Hydromorphone HCl 1 mg Q4HPRN PRN IV 11/01/24 04:00 11/02/24 19:31 1 MG Ceftriaxone Sodium 50 ml @ 100 mls/hr DAILY@09 IV 11/01/24 10:00 11/02/24 09:06 100 MLS/HR Metronidazole 100 ml @ 100 mls/hr Q8HR IV 11/01/24 14:00 11/02/24 14:14 100 MLS/HR Pantoprazole Sodium 40 mg BID IV 11/01/24 22:00 11/02/24 09:31 40 MG Acetaminophen/ Hydrocodone Bitart 1 tab Q4HP PRN PO 11/02/24 11:30 11/02/24 17:26 1 TAB Alprazolam 0.25 mg QIDP PRN PO 11/02/24 13:30 11/02/24 15:37 0.25 MG Examination General Appearance: Alert, Oriented X3, Cooperative, No acute distress; cachexia HEENT: Atraumatic, PERRLA, EOMI, Mucous membr. moist/pink Respiratory: Clear to auscultation, Normal air movement Cardiovascular: Regular rate, Normal S1, Normal S2, No murmurs Abdominal: Normal bowel sounds, Soft, No hepatospenomegaly, No masses, thin scaphoid mildly tender laboratory and microbiology Laboratory Tests 11/01/24 07:12 Test 11/01/24 07:12 Range/Units Serum Glucose 85 74-106 mg/dL Microbiology Date/Time Source Procedure Growth Status 11/01/24 06:49 Nose MRSA Screen - Final Complete Problem List/Assessment/Plan Problem List/Assessment/Plan ASSESSMENT ( 1. 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 * Imaging reveals pancreatic calcifications, chronic changes. * Mass in the pancreatic head requires further evaluation. * Rule out: Pancreatic malignancy, ampullary stricture, recurrent pancreatitis. * Rule in: Chronic pancreatitis with suspected neoplasm. 2. Suspected Pancreatic Head Mass (3.1 x 3.2 cm, hypoenhancing) * CT angiogram concerning for neoplasm. * Elevated Alk Phos with biliary ductal dilatation. * Further characterized by MRI/MRCP. * Rule out: Ampullary obstruction, pancreatic adenocarcinoma, autoimmune pancreatitis. 3. Choledocholithiasis vs Biliary Obstruction * HIDA: Cystic duct obstruction, non-visualized GB. * US: Dilated CBD (10 mm) with sludge, no gallstones. * MRCP or EUS advised for further delineation. * Rule out: Gallbladder carcinoma, retained stones, stricture. 4. Post-Operative Biliary Dysfunction (Status-Post Whipple) * Multiple post-surgical complications possible including stricture, anastomotic leak, or recurrence. * Monitor for evidence of cholangitis or pancreatic insufficiency. TREATMENT PLAN (SYSTEM-OROZCO): Gastrointestinal / Hepatobiliary: * Continue clear liquid diet. * Start Pancreatic enzyme supplements to address possible exocrine insufficiency. * Continue IV PPI for gastric protection and ulcer prevention. * Hold enteral/parenteral feeds unless unable to tolerate oral intake. Hepatobiliary Workup: * Pending tumor markers (CA 19-9, AFP). * Recommend MRI abdomen with pancreas protocol. * Consider EUS +/- biopsy depending on MRI findings. * Monitor LFTs, lipase, bilirubin, and CBC daily. Pain Control: * Continue Dilaudid IV PRN. * Consider GI-safe analgesics as adjuncts (e.g., Tylenol if LFTs permit). * Avoid NSAIDs due to pancreatitis and unclear renal reserve. Surgical Coordination: * Recommend surgical consult for suspected cystic duct obstruction and mass evaluation. * Follow-up with prior surgical team at [facility] recommended. PROPHYLACTIC AND SUPPORTIVE ORDERS: * GI prophylaxis: Continue IV PPI Plan discussed with: Patient [place] RESIDENT Nov 02, 2024 19:34
[2024-11-03] VITALS (7 sets, daily range): BP systolic 101–143; BP diastolic 64–83; PULSE 77–87; RESP 16–17; TEMP 97.7–98.3; O2SAT 95–98
--- NOTE | 2024-11-03 09:39 | DVHPN2 ---
Subjective Patient doing well, abdominal pain continues using prn medications. Reviewed: H&P Changes from previous H/P or p: No Changes General: Per HPI Eyes: No Pain, No Vision change, No Conjunctivae inflammation, No Eyelid inflammation, No Other, No Redness ENT: No Ear pain, No Ear discharge, No Nose pain, No Nose discharge, No Nose congestion, No Mouth pain, No Mouth swelling, No Throat pain, No Throat swelling, No Other Cardiovascular: No Chest Pain, No Palpitations, No Orthopnea, No Paroxysmal Noc. Dyspnea, No Edema, No Lt Headedness, No Other Respiratory: No Cough, No Dry, No Shortness of breath, No SOB with excertion, No Wheezing, No Hemoptysis, No Pleuritic Pain, No Sputum, No Other Gastrointestinal: Nausea; No Vomiting; Abdominal Pain; No Diarrhea, No Constipation, No Melena, No Hematochezia, No Other Genitourinary: No Dysuria, No Frequency, No Incontinence, No Hematuria, No Retention, No Other Musculoskeletal: No other, No neck pain, No shoulder pain, No arm pain, No back pain, No hand pain, No leg pain, No foot pain Skin: No Rash, No Lesions, No Jaundice, No Bruising; Other (Surgical scar lower abdomen) Objective Vitals Vital Signs Date Time Temp Pulse Resp B/P (MAP) Pulse Ox O2 Delivery O2 Flow Rate FiO2 11/03/24 09:00 98.1 86 16 101/64 (76) 97 98.1 11/03/24 08:02 Room Air* 0 21 Intake/Output Intake and Output 11/03/24 07:00 Intake Total 2700 ml Output Total 1300 ml Balance 1400 ml Intake Oral 1500 ml IV Total 1200 ml Output Urine Total 1300 ml Exam GEN: Healthy appearing, well-developed, NAD. HEENT: NC/AT; MMM. CV: RRR, no m/r/g. LUNGS: CTAB, no w/r/c. ABD: Soft, NT/ND, NBS, no masses or organomegaly. Tender to palpation right upper quadrant EXT: skin Warm, well perfused. no rashes. No clubbing, cyanosis, or edema. NEURO: Ambulating with no limitations. No focal deficits. Medications Current Medications Medications Dose Ordered Sig/Desean Route Start Time Stop Time Status Last Admin Dose Admin Sodium Chloride 1,000 ml @ 60 mls/hr [id number] IV 10/31/24 21:45 11/02/24 23:00 60 MLS/HR Ondansetron HCl 4 mg Q4HP PRN IV 10/31/24 21:45 Docusate Sodium 100 mg BIDPRN PRN PO 10/31/24 21:45 11/02/24 19:31 100 MG Acetaminophen 650 mg Q6HP PRN PO 10/31/24 21:45 Nitroglycerin 0.4 mg Q5MINP PRN SL 10/31/24 22:30 Morphine Sulfate 2 mg Q30M PRN IV 10/31/24 22:30 Hydromorphone HCl 1 mg Q4HPRN PRN IV 11/01/24 04:00 11/03/24 07:48 1 MG Ceftriaxone Sodium 50 ml @ 100 mls/hr DAILY@09 IV 11/01/24 10:00 11/02/24 09:06 100 MLS/HR Metronidazole 100 ml @ 100 mls/hr Q8HR IV 11/01/24 14:00 11/03/24 05:05 100 MLS/HR Pantoprazole Sodium 40 mg BID IV 11/01/24 22:00 11/02/24 22:15 40 MG Acetaminophen/ Hydrocodone Bitart 1 tab Q4HP PRN PO 11/02/24 11:30 11/03/24 06:16 1 TAB Alprazolam 0.25 mg QIDP PRN PO 11/02/24 13:30 11/02/24 15:37 0.25 MG Laboratory Results Laboratory Tests 11/01/24 07:12 Urinalysis Test 11/01/24 09:20 Urine Color Light-yellow (Yellow) Urine Clarity Clear (Clear) Urine pH 5.5 (5.0-9.0) Urine Specific [place] 1.009 (1.001-1.035) Urine Protein Negative (Negative) Urine Ketones Negative (Negative) Urine Blood Negative /uL (Negative) Urine Nitrite Negative (Negative) Urine Bilirubin Negative (Negative) Urine Urobilinogen Normal mg/dL (Negative) Urine Leukocyte Esterase Negative /uL (Negative) Urine RBC 1 /hpf (0 - 3) Urine Microscopic WBC < 1 /HPF (0-3) Urine Squamous Epithelial Cells None seen /hpf (<5) Urine Bacteria None seen /hpf (None Seen) Urine Glucose Normal mg/dL (Normal) Microbiology Microbiology Date/Time Source Procedure Growth Status 11/01/24 06:49 Nose MRSA Screen - Final Complete Labs and/or images reviewed: Labs reviewed by me, Image(s) reviewed by me Assessment/Plan Assessment/Plan 11/01: Patient doing okay still having pain. Surgery has ordered CT abdomen with oral and IV contrast. We will follow up with study. Until then we will control pains with prn 11/02: Patient pain continuing but appears tolerable. Patient appears comfortable, right upper quadrant pain is minimal. Imaging was suggesting gallbladder with stones dilated duct and pancreas head mass possibly obstructing the duct. Surgery and GI on board. We will request for notes from [place], patient was seen surgical oncology Dr. Betts. 11/03: We need records from [place] regarding patient's partial Whipple's . HIDA scan showing no filling of cystic duct. No comment on gallbladder being present on CT. We will follow up with GI and surgery. CA 19-9 is elevated. Surgery recommends transfer. Waiting for GI eval. Diagnosis: Intractable abdominal pain History of partially Whipple's procedure Chronic pancreatitis History alcohol abuse Plan: Continue pain control CT abdomen with contrast and oral contrast IV Zofran Continue home meds Med surge Full code Plan discussed with: Patient My Orders Orders - ARMIN PORRAS MD Procedure Category Date Status Time Hydrocodone-Acet PHA 11/02/24 In Process 10/325mg Tab (Tarrs 11:30 Alprazolam Tablet PHA 11/02/24 In Process (Xanax Tablet) 13:30 Date of Service: Nov 03, 2024 Billing Provider: ARMIN PORRAS MD Common Visit Codes: [id number] INP/OBS CARE(HIGH) ARMIN PORRAS MD Nov 03, 2024 09:39
--- NOTE | 2024-11-03 10:44 | DVHPN2 ---
Progress Note Date Seen: Nov 03, 2024 Has the PT tested + for MRSA If YES, has PT been informed?: No Medical Necessity Reason Pt with a Central, PICC or Fol: No Objective vital signs Vital Sign Date Time Temp Pulse Resp B/P (MAP) Pulse Ox O2 Delivery O2 Flow Rate FiO2 11/03/24 09:00 98.1 86 16 101/64 (76) 97 98.1 11/03/24 08:02 Room Air* 0 21 Total Intake and Output 11/02/24 11/02/24 11/03/24 14:59 22:59 06:59 Intake Total 1300 ml 1400 ml Output Total 600 ml 700 ml Balance 700 ml 700 ml medications Current Medications Medications Dose Ordered Sig/Desean Route Start Time Stop Time Status Last Admin Dose Admin Sodium Chloride 1,000 ml @ 60 mls/hr [id number] IV 10/31/24 21:45 11/02/24 23:00 60 MLS/HR Ondansetron HCl 4 mg Q4HP PRN IV 10/31/24 21:45 Docusate Sodium 100 mg BIDPRN PRN PO 10/31/24 21:45 11/02/24 19:31 100 MG Acetaminophen 650 mg Q6HP PRN PO 10/31/24 21:45 Nitroglycerin 0.4 mg Q5MINP PRN SL 10/31/24 22:30 Morphine Sulfate 2 mg Q30M PRN IV 10/31/24 22:30 Hydromorphone HCl 1 mg Q4HPRN PRN IV 11/01/24 04:00 11/03/24 07:48 1 MG Ceftriaxone Sodium 50 ml @ 100 mls/hr DAILY@09 IV 11/01/24 10:00 11/03/24 10:10 100 MLS/HR Metronidazole 100 ml @ 100 mls/hr Q8HR IV 11/01/24 14:00 11/03/24 05:05 100 MLS/HR Pantoprazole Sodium 40 mg BID IV 11/01/24 22:00 11/03/24 10:07 40 MG Acetaminophen/ Hydrocodone Bitart 1 tab Q4HP PRN PO 11/02/24 11:30 11/03/24 10:16 1 TAB Alprazolam 0.5 mg Q6HPRN PRN PO 11/03/24 10:45 UNV laboratory and microbiology Laboratory Tests 11/01/24 07:12 Test 11/01/24 07:12 Range/Units Serum Glucose 85 74-106 mg/dL Problem List/Assessment/Plan Problem List/Assessment/Plan 11/01/24 PATIENT HAD A WHIPPLE PROCEDURE ABOUT 7 WEEKS AGO, WAS HOSPITALIZED HERE TWO WEEKS AGO WITH CHEST PAIN AND SOB DIAGNOSED WITH PNEUMONIA, NOW C/O PERSISTENT ABDOMINAL PAIN IN THE RIGHT UPPER ABDOMEN RADIATING TO HIS RIGHT SHOULDER. ABDOMEN TENDER IN THE RUQ, WILL ORDER HIDA SCAN AND CT WITH CONTRAST, KEEP NPO, WILL FOLLOW 11/03/24 CT SCAN SHOWS "MASS IN THE HEAD OF THE PANCREAS" HIDA SCAN SHOWS OBSTRUCTION OF CYSTIC DUCT. HIS STORY IS NOT CONSISTENT WITH FINDINGS. NOW HE CLAIMS HE HAD A [facility]OW OPERATION AND THAT THEY "OPENED THE BILE DUCT AND REMOVED STONES FROM IT" . HIS WBC IS NORMAL AND HIS BILIRUBIN IS NORMAL. HE NEEDS TO BE TRANSFERRED TO HOSPITAL WHERE HIS OPERATION WAS DONE. Plan discussed with: Patient LORRI HERNANDEZ MD Nov 03, 2024 10:44
--- NOTE | 2024-11-03 10:53 | ECG ---
[facility] Test Date: 2024-10-31 Test Time: 15:39:03 Pat Name: BC STERLING Department: ER Room: [facility] B Gender: M Management Lead: RAMIRO : 1970 Requested By: LIDIA GRYA Order Number: [id number] Reading MD: Jonatan Ornelas Measurements Intervals [place] Rate: 97 P: 88 [place]: 137 QRS: 79 QRSD: 88 T: 79 QT: 356 QTc: 452 Interpretive Statements Sinus rhythm Right atrial enlargement Low voltage, precordial leads Consider right ventricular hypertrophy Electronically Signed On 11-03-2024 22:57:57 PDT by Jonatan Ornelas Please click the below link to view image of tracing.
[2024-11-03 14:03] LABS: Alanine Aminotransferase 14 U/L (7-40); Albumin 3.4 g/dL (3.2-4.8); Anion Gap 7 (5-15); Calcium 8.7 mg/dL (8.7-10.4); Carbon Dioxide 29 mmol/L (20-31); Chloride 102 mmol/L (98-107); Glucose 105 mg/dL (74-106); Potassium 3.9 mmol/L (3.5-5.1); Sodium 138 mmol/L (136-145)
[2024-11-03 14:06] LABS: Alkaline Phosphatase 119 U/L (46-116); BUN/Creatinine Ratio 8.9 (10.0-20.0); Bilirubin, Total < 0.2 mg/dL (0.2-1.0); Blood Urea Nitrogen < 5 mg/dL (9-23); Total Protein 5.4 g/dL (5.7-8.2)
[2024-11-03] MEDS: ALPRAZolam 0.5 MG TAB PO PRN (14:09)
--- NOTE | 2024-11-03 16:36 | MEDREC ---
[facility] ASP Intervention Section I [facility] ASP Intervention: Review courses of therapy (PLEASE CONSIDER D/C ANTIBIOTIC IN ABSENCE OF BACTERIAL INFECTION) ALMAZ CASTELLON PHARMACIST Nov 03, 2024 16:36
--- NOTE | 2024-11-03 17:24 | DVHPN2 ---
Progress Note Date Seen: Nov 03, 2024 Resident Creating Document: [place] RESIDENT Has the PT tested + for MRSA If YES, has PT been informed?: No Medical Necessity Reason Pt with a Central, PICC or Fol: No Subjective Review of Systems Today's progress- The patient denies nausea or vomiting, reports tolerating clear liquid diet and no bowel movements since 10/30. Still endorsing epigastric abdominal pain. He is awaiting records from the facility where he underwent Whipple's procedure, which may aid in surgical and oncological decision making. He remains clinically stable, with normal WBC and liver function parameters. CA 19-19 level is elevated at 80 concerning for malignancy of the pancreas. Alkaline phosphatase remains elevated at 124 LFT, bilirubin and WBC are within normal limits. CT abdomen pelvis shows hypoenhancing mass in pancreatic head with CBD dilation and calcification consistent with chronic pancreatitis. HIDA scan confirms nonvisualization of gallbladder with cystic duct obstruction. From GI standpoint, recommending transfer to higher level facility where the Whipple's was performed for continuity of care and potential surgical or oncological intervention Objective vital signs Vital Sign Date Time Temp Pulse Resp B/P (MAP) Pulse Ox O2 Delivery O2 Flow Rate FiO2 11/03/24 15:50 74 19 115/76 11/03/24 13:00 97.7 95 97.7 11/03/24 08:02 Room Air* 0 21 Total Intake and Output 11/02/24 11/02/24 11/03/24 15:00 23:00 07:00 Intake Total 1300 ml 1400 ml Output Total 600 ml 700 ml Balance 700 ml 700 ml medications Current Medications Medications Dose Ordered Sig/Desean Route Start Time Stop Time Status Last Admin Dose Admin Sodium Chloride 1,000 ml @ 60 mls/hr [id number] IV 10/31/24 21:45 11/02/24 23:00 60 MLS/HR Ondansetron HCl 4 mg Q4HP PRN IV 10/31/24 21:45 Docusate Sodium 100 mg BIDPRN PRN PO 10/31/24 21:45 11/02/24 19:31 100 MG Acetaminophen 650 mg Q6HP PRN PO 10/31/24 21:45 Nitroglycerin 0.4 mg Q5MINP PRN SL 10/31/24 22:30 Morphine Sulfate 2 mg Q30M PRN IV 10/31/24 22:30 Hydromorphone HCl 1 mg Q4HPRN PRN IV 11/01/24 04:00 11/03/24 15:50 1 MG Ceftriaxone Sodium 50 ml @ 100 mls/hr DAILY@09 IV 11/01/24 10:00 11/03/24 10:10 100 MLS/HR Metronidazole 100 ml @ 100 mls/hr Q8HR IV 11/01/24 14:00 11/03/24 14:10 100 MLS/HR Pantoprazole Sodium 40 mg BID IV 11/01/24 22:00 11/03/24 10:07 40 MG Acetaminophen/ Hydrocodone Bitart 1 tab Q4HP PRN PO 11/02/24 11:30 11/03/24 14:16 1 TAB Alprazolam 0.5 mg Q6HPRN PRN PO 11/03/24 10:45 11/03/24 14:09 0.5 MG Examination General Appearance: Alert, Oriented X3, Cooperative, No acute distress; cachexia HEENT: Atraumatic, PERRLA, EOMI, Mucous membr. moist/pink Respiratory: Clear to auscultation, Normal air movement Cardiovascular: Regular rate, Normal S1, Normal S2, No murmurs Abdominal: Normal bowel sounds, Soft, No hepatospenomegaly, No masses, thin scaphoid mildly tender laboratory and microbiology Laboratory Tests 11/03/24 13:21 11/01/24 07:12 Test 11/03/24 13:21 Range/Units Serum Glucose 105 74-106 mg/dL Microbiology Date/Time Source Procedure Growth Status 11/01/24 06:49 Nose MRSA Screen - Final Complete Problem List/Assessment/Plan Problem List/Assessment/Plan ASSESSMENT ( 1. 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 * Imaging reveals pancreatic calcifications, chronic changes. * Mass in the pancreatic head requires further evaluation. * Rule out: Pancreatic malignancy, ampullary stricture, recurrent pancreatitis. * Rule in: Chronic pancreatitis with suspected neoplasm. 2. Suspected Pancreatic Head Mass (3.1 x 3.2 cm, hypoenhancing) * CT angiogram concerning for neoplasm. * Elevated Alk Phos with biliary ductal dilatation. * Further characterized by MRI/MRCP. * Rule out: Ampullary obstruction, pancreatic adenocarcinoma, autoimmune pancreatitis. 3. Choledocholithiasis vs Biliary Obstruction * HIDA: Cystic duct obstruction, non-visualized GB. * US: Dilated CBD (10 mm) with sludge, no gallstones. * MRCP or EUS advised for further delineation. * Rule out: Gallbladder carcinoma, retained stones, stricture. 4. Post-Operative Biliary Dysfunction (Status-Post Whipple) * Multiple post-surgical complications possible including stricture, anastomotic leak, or recurrence. * Monitor for evidence of cholangitis or pancreatic insufficiency. TREATMENT PLAN (SYSTEM-OROZCO): Recommend transfer to tertiary center where we pulse was performed for further evaluation and management. Continue clear liquid diet as tolerated. Gastrointestinal / Hepatobiliary: * Continue clear liquid diet. * Start Pancreatic enzyme supplements to address possible exocrine insufficiency. * Continue IV PPI for gastric protection and ulcer prevention. * Hold enteral/parenteral feeds unless unable to tolerate oral intake. Hepatobiliary Workup: * CA 19-19 elevated, alpha fetoprotein normal * Recommend MRI abdomen with pancreas protocol. * Consider EUS +/- biopsy depending on MRI findings. * Monitor LFTs, lipase, bilirubin, and CBC daily. Pain Control: * Continue Dilaudid IV PRN. * Consider GI-safe analgesics as adjuncts (e.g., Tylenol if LFTs permit). * Avoid NSAIDs due to pancreatitis and unclear renal reserve. Surgical Coordination: * Follow-up with prior surgical team at [facility] recommended. PROPHYLACTIC AND SUPPORTIVE ORDERS: * GI prophylaxis: Continue IV PPI Plan discussed with: Patient [place] RESIDENT Nov 03, 2024 17:24
--- NOTE | 2024-11-03 18:17 | DVHDS2 ---
Discharge Summary Date of Admission Oct 31, 2024 at 22:17 Date of Discharge: Nov 03, 2024 Labs/Diagnostic Data: Laboratory Results Test 11/03/24 13:21 11/02/24 05:02 11/01/24 09:20 11/01/24 07:12 Sodium Level 138 mmol/L (136-145) Potassium Level 3.9 mmol/L (3.5-5.1) Chloride Level 102 mmol/L (98-107) Carbon Dioxide Level 29 mmol/L (20-31) Anion Gap 7 (5-15) Blood Urea Nitrogen < 5 mg/dL (9-23) Creatinine 0.56 mg/dL (0.700-1.30) Glomerular Filtration Rate Calc 116 mL/min (>90) BUN/Creatinine Ratio 8.9 (10.0-20.0) Serum Glucose 105 mg/dL (74-106) Calcium Level 8.7 mg/dL (8.7-10.4) Total Bilirubin < 0.2 mg/dL (0.2-1.0) Aspartate Amino Transferase (AST) 12 U/L (13-40) Alanine Aminotransferase (ALT) 14 U/L (7-40) Alkaline Phosphatase 119 U/L (46-116) Total Protein 5.4 g/dL (5.7-8.2) Albumin 3.4 g/dL (3.2-4.8) Tumor Marker Alpha Fetoprotein <1.8 ng/mL (0.0-8.4) CA 19-9 Antigen 80 U/mL (0-35) Urine Color Light-yellow (Yellow) Urine Clarity Clear (Clear) Urine pH 5.5 (5.0-9.0) Urine Specific [place] 1.009 (1.001-1.035) Urine Protein Negative (Negative) Urine Ketones Negative (Negative) Urine Blood Negative /uL (Negative) Urine Nitrite Negative (Negative) Urine Bilirubin Negative (Negative) Urine Urobilinogen Normal mg/dL (Negative) Urine Leukocyte Esterase Negative /uL (Negative) Urine RBC 1 /hpf (0 - 3) Urine Microscopic WBC < 1 /HPF (0-3) Urine Squamous Epithelial Cells None seen /hpf (<5) Urine Bacteria None seen /hpf (None Seen) Urine Glucose Normal mg/dL (Normal) White Blood Count 7.1 10^3/uL (4.4-10.8) Red Blood Count 3.73 10^6/uL (4.5-5.90) Hemoglobin 12.0 g/dL (13.5-17.5) Hematocrit 35.0 % (41.0-53.0) Mean Corpuscular Volume 93.7 fL (80.0-100.0) Mean Corpuscular Hemoglobin 32.1 pg (28.0-32.0) Mean Corpuscular Hemoglobin Concent 34.2 g/dL (32.0-36.0) Red Cell Distribution Width 14.2 % (11.8-14.3) Platelet Count 355 10^3/uL (140-450) Mean Platelet Volume 6.9 fL (6.9-10.8) Neutrophils (%) (Auto) 58.5 % (37.0-80.0) Lymphocytes (%) (Auto) 29.5 % (10.0-50.0) Monocytes (%) (Auto) 9.4 % (0.0-12.0) Eosinophils (%) (Auto) 2.0 % (0.0-7.0) Basophils (%) (Auto) 0.6 % (0.0-2.0) Neutrophils # (Auto) 4.1 10 ^3/uL (1.6-8.6) Lymphocytes # (Auto) 2.1 10 ^3/uL (0.4-5.4) Monocytes # (Auto) 0.7 10 ^3/uL (0-1.3) Eosinophils # (Auto) 0.1 10 ^3/uL (0-0.8) Basophils # (Auto) 0 10 ^3/uL (0-0.2) Nucleated Red Blood Cells 0.0 % Test 10/31/24 17:04 10/31/24 15:56 Troponin I High Sensitivity < 3 ng/L (</=54) Hemoglobin A1c 5.4 % A1C (<5.7) Lipase 56 U/L (12-53) Other Laboratory Tests 11/03/24 13:21 11/01/24 07:12 Brief Hx & Hospital Course: 54-year-old male with past medical history of anxiety and pancreatitis who presented to [facility] ED with complaint of acute abdominal pain. Patient reports has been experiencing generalized abdominal pain rating 8/10 numeric scale, had a Whipple procedure done on 08/27/2024. Patient was seen and evaluated in the ED, laboratory data shows WBC 6.8, platelets 397, sodium 137, potassium 4.3, BUN 7, creatinine 0.54, glucose 153, calcium 8.6, lipase 56, troponin < 3, blood pressure 99/72, heart rate 86, temperature 98.2 F, O2 saturation 97% on room air. Single organ ultrasound revealing gallbladder is moderately distended and contains sludge; the common bile duct is dilated at 10 mm, increased compared with the prior study; if there is concern for choledocholithiasis, 11/01: Patient doing okay still having pain. Surgery has ordered CT abdomen with oral and IV contrast. We will follow up with study. Until then we will control pains with prn 11/02: Patient pain continuing but appears tolerable. Patient appears comfortable, right upper quadrant pain is minimal. Imaging was suggesting gallbladder with stones dilated duct and pancreas head mass possibly obstructing the duct. Surgery and GI on board. We will request for notes from [place], patient was seen surgical oncology Dr. Betts. 11/03: We need records from [place] regarding patient's partial Whipple's . HIDA scan showing no filling of cystic duct. No comment on gallbladder being present on CT. We will follow up with GI and surgery. CA 19-9 is elevated. Surgery recommends transfer. GI in agreement with transfer. I have contacted Dr. Betts office left my personal phone number. we will send copy of CT scan on CT as requested. Diagnosis: Intractable abdominal pain , due to below Suspected Pancreatic Head Mass (3.1 x 3.2 cm) with biliary dilation History of partially Whipple's procedure, [place] procedure with modified sprey. Post-Operative Biliary Dysfunction Chronic pancreatitis History alcohol abuse Discharge plan: - Transfer to higher level of care for continuity of care with primary surgeon surgical Oncology Dr. Betts [facility]. patient also needs possible evaluation by EUS of new pancreatic head mass - continue medications per MAR Condition at Discharge: Higher Level of Care Final Diagnosis/Problems List Intractable abdominal pain , due to below Suspected Pancreatic Head Mass (3.1 x 3.2 cm) with biliary dilation History of partially Whipple's procedure, [place] procedure with modified sprey. Post-Operative Biliary Dysfunction Chronic pancreatitis History alcohol abuse Discharge Disposition: Acute Care Facility Discharge Instruct/Medications Diet: Regular Activity: No Restrictions, As Tolerated Follow Up/Referral: See below Medications: See below Scheduled Pancreatic Enzymes (Creon), 12,000 UNT PO TID, (Reported) Scheduled PRN Hydrocodone-Acetaminophen (Hydrocodone/Acetaminophen 10-325 mg), 1 TAB PO Q4HP PRN for PAIN SCALE 7 THRU 10, (Reported) Miscellaneous Medications Nicotine (Nicotine Transdermal Syst), TOP, (Reported) Discontinued Medications Lactulose (Lactulose), 30 ML PO DAILY PRN Discontinued Reason: Auto Discontinued Discharge Statement: "Patient was advised to return to the ER or call 911 if any headaches, dizziness, shortness of breath, chest pain, abdominal pain, bleeding, fevers, or worsening of medical condition. Patient was counseled about treatment plan, medications, possible side effects, patientverbalized understanding. All questions were answered to the best of my ability. This discharge took greater then 30 minutes in planning, reviewing documentation, counseling the patient, and discussing with other team members." Date of Service: Nov 03, 2024 Billing Provider: ARMIN PORRAS MD Common Visit Codes: 33944-DOV/OBS DISCH DAY >30min ARMIN PORRAS MD Nov 03, 2024 18:17
[2024-11-04 01:00] VITALS: BP 119/85; PULSE 74; RESP 17; TEMP 98.6; O2SAT 97
[2024-11-04 05:00] VITALS: BP 114/69; PULSE 73; RESP 17; TEMP 98.9; O2SAT 97
[2024-11-04 06:43] LABS: Alanine Aminotransferase 10 U/L (7-40); Albumin 3.4 g/dL (3.2-4.8); Alkaline Phosphatase 114 U/L (46-116); Anion Gap 5 (5-15); Calcium 8.9 mg/dL (8.7-10.4); Carbon Dioxide 29 mmol/L (20-31); Chloride 104 mmol/L (98-107); Glucose 87 mg/dL (74-106); Potassium 3.8 mmol/L (3.5-5.1); Sodium 138 mmol/L (136-145)
[2024-11-04 06:51] LABS: Bilirubin, Total < 0.2 mg/dL (0.2-1.0); Blood Urea Nitrogen < 5 mg/dL (9-23); Total Protein 5.6 g/dL (5.7-8.2)
[2024-11-04 06:52] LABS: BUN/Creatinine Ratio 9.6 (10.0-20.0)
[2024-11-04 09:00] VITALS: BP 107/73; PULSE 72; RESP 18; TEMP 99.6; O2SAT 93
--- NOTE | 2024-11-04 10:35 | DVHPN2 ---
Subjective Patient doing well, abdominal pain continues using prn medications. Reviewed: H&P Changes from previous H/P or p: No Changes General: Per HPI Eyes: No Pain, No Vision change, No Conjunctivae inflammation, No Eyelid inflammation, No Other, No Redness ENT: No Ear pain, No Ear discharge, No Nose pain, No Nose discharge, No Nose congestion, No Mouth pain, No Mouth swelling, No Throat pain, No Throat swelling, No Other Cardiovascular: No Chest Pain, No Palpitations, No Orthopnea, No Paroxysmal Noc. Dyspnea, No Edema, No Lt Headedness, No Other Respiratory: No Cough, No Dry, No Shortness of breath, No SOB with excertion, No Wheezing, No Hemoptysis, No Pleuritic Pain, No Sputum, No Other Gastrointestinal: Nausea; No Vomiting; Abdominal Pain; No Diarrhea, No Constipation, No Melena, No Hematochezia, No Other Genitourinary: No Dysuria, No Frequency, No Incontinence, No Hematuria, No Retention, No Other Musculoskeletal: No other, No neck pain, No shoulder pain, No arm pain, No back pain, No hand pain, No leg pain, No foot pain Skin: No Rash, No Lesions, No Jaundice, No Bruising; Other (Surgical scar lower abdomen) Objective Vitals Vital Signs Date Time Temp Pulse Resp B/P (MAP) Pulse Ox O2 Delivery O2 Flow Rate FiO2 11/04/24 10:27 72 18 107/73 11/04/24 09:00 99.6 93 99.6 11/03/24 20:00 Room Air* 0 21 Intake/Output Intake and Output 11/04/24 07:00 Intake Total 1580 ml Output Total 2300 ml Balance -720 ml Intake Oral 1150 ml IV Total 430 ml Output Urine Total 2300 ml Exam GEN: Healthy appearing, well-developed, NAD. HEENT: NC/AT; MMM. CV: RRR, no m/r/g. LUNGS: CTAB, no w/r/c. ABD: Soft, NT/ND, NBS, no masses or organomegaly. Tender to palpation right upper quadrant EXT: skin Warm, well perfused. no rashes. No clubbing, cyanosis, or edema. NEURO: Ambulating with no limitations. No focal deficits. Medications Current Medications Medications Dose Ordered Sig/Desean Route Start Time Stop Time Status Last Admin Dose Admin Sodium Chloride 1,000 ml @ 60 mls/hr [id number] IV 10/31/24 21:45 11/03/24 18:09 60 MLS/HR Ondansetron HCl 4 mg Q4HP PRN IV 10/31/24 21:45 Docusate Sodium 100 mg BIDPRN PRN PO 10/31/24 21:45 11/04/24 08:53 100 MG Acetaminophen 650 mg Q6HP PRN PO 10/31/24 21:45 Nitroglycerin 0.4 mg Q5MINP PRN SL 10/31/24 22:30 Morphine Sulfate 2 mg Q30M PRN IV 10/31/24 22:30 Hydromorphone HCl 1 mg Q4HPRN PRN IV 11/01/24 04:00 11/04/24 10:27 1 MG Ceftriaxone Sodium 50 ml @ 100 mls/hr DAILY@09 IV 11/01/24 10:00 11/04/24 08:54 100 MLS/HR Metronidazole 100 ml @ 100 mls/hr Q8HR IV 11/01/24 14:00 11/04/24 06:10 100 MLS/HR Pantoprazole Sodium 40 mg BID IV 11/01/24 22:00 11/04/24 08:54 40 MG Acetaminophen/ Hydrocodone Bitart 1 tab Q4HP PRN PO 11/02/24 11:30 11/04/24 08:53 1 TAB Alprazolam 0.5 mg Q6HPRN PRN PO 11/03/24 10:45 11/04/24 10:27 0.5 MG Laboratory Results Laboratory Tests 11/01/24 07:12 11/04/24 04:22 Chemistry Test 11/03/24 13:21 11/04/24 04:22 Albumin 3.4 g/dL (3.2-4.8) 3.4 g/dL (3.2-4.8) Calcium Level 8.7 mg/dL (8.7-10.4) 8.9 mg/dL (8.7-10.4) Total Protein 5.4 g/dL (5.7-8.2) L 5.6 g/dL (5.7-8.2) L LFT Test 11/03/24 13:21 11/04/24 04:22 Alanine Aminotransferase (ALT) 14 U/L (7-40) 10 U/L (7-40) Alkaline Phosphatase 119 U/L (46-116) H 114 U/L (46-116) Aspartate Amino Transferase (AST) 12 U/L (13-40) L 13 U/L (13-40) Total Bilirubin < 0.2 mg/dL (0.2-1.0) L < 0.2 mg/dL (0.2-1.0) L Urinalysis Test 11/01/24 09:20 Urine Color Light-yellow (Yellow) Urine Clarity Clear (Clear) Urine pH 5.5 (5.0-9.0) Urine Specific [place] 1.009 (1.001-1.035) Urine Protein Negative (Negative) Urine Ketones Negative (Negative) Urine Blood Negative /uL (Negative) Urine Nitrite Negative (Negative) Urine Bilirubin Negative (Negative) Urine Urobilinogen Normal mg/dL (Negative) Urine Leukocyte Esterase Negative /uL (Negative) Urine RBC 1 /hpf (0 - 3) Urine Microscopic WBC < 1 /HPF (0-3) Urine Squamous Epithelial Cells None seen /hpf (<5) Urine Bacteria None seen /hpf (None Seen) Urine Glucose Normal mg/dL (Normal) Microbiology Microbiology Date/Time Source Procedure Growth Status 11/01/24 06:49 Nose MRSA Screen - Final Complete Labs and/or images reviewed: Labs reviewed by me, Image(s) reviewed by me Assessment/Plan Assessment/Plan 11/01: Patient doing okay still having pain. Surgery has ordered CT abdomen with oral and IV contrast. We will follow up with study. Until then we will control pains with prn 11/02: Patient pain continuing but appears tolerable. Patient appears comfortable, right upper quadrant pain is minimal. Imaging was suggesting gallbladder with stones dilated duct and pancreas head mass possibly obstructing the duct. Surgery and GI on board. We will request for notes from [facility], patient was seen surgical oncology Dr. Ríos. 11/03: We need records from [facility] regarding patient's partial Whipple's . HIDA scan showing no filling of cystic duct. No comment on gallbladder being present on CT. We will follow up with GI and surgery. CA 19-9 is elevated. Surgery recommends transfer. Waiting for GI eval. 11/04: Patient aware of transfer status, in agreement. i Spoke to Dr. ríos, surgical oncology [place] yesterday. We will continue with transfer to higher level of care [facility] Diagnosis: Intractable abdominal pain History of partially Whipple's procedure Chronic pancreatitis History alcohol abuse Plan: Continue pain control CT abdomen with contrast and oral contrast IV Zofran Continue home meds Med surge Full code Plan discussed with: Patient My Orders Orders - ARMIN PORRAS MD Procedure Category Date Status Time Alprazolam Tablet PHA 11/03/24 In Process (Xanax Tablet) 10:45 * Card Folder CONS 11/03/24 Transmitted Consult Communication Order ORDERS 11/03/24 Transmitted 13:57 Discharge DISCHARGE 11/03/24 Transmitted 18:09 Date of Service: Nov 04, 2024 Billing Provider: ARMIN PORRAS MD Common Visit Codes: [id number] INP/OBS CARE(HIGH) ARMIN PORRAS MD Nov 04, 2024 10:35
[2024-11-04 13:00] VITALS: BP 96/69; PULSE 84; RESP 20; TEMP 97.5; O2SAT 95
--- NOTE | 2024-11-04 17:02 | DVHPN2 ---
Progress Note Date Seen: Nov 04, 2024 Resident Creating Document: [place] RESIDENT Has the PT tested + for MRSA If YES, has PT been informed?: No Medical Necessity Reason Pt with a Central, PICC or Fol: No Subjective Review of Systems Today's progress- The patient denies nausea or vomiting, reports tolerating clear liquid diet and no bowel movements since 10/30. Still endorsing epigastric abdominal pain. The surgeon who did his previous procedures at [place] accepted him to provide advanced level of care to the patient. He remains clinically stable, with normal WBC and liver function parameters. CA 19-19 level is elevated at 80 concerning for malignancy of the pancreas. Alkaline phosphatase remains elevated at 124 LFT, bilirubin and WBC are within normal limits. CT abdomen pelvis shows hypoenhancing mass in pancreatic head with CBD dilation and calcification consistent with chronic pancreatitis. HIDA scan confirms nonvisualization of gallbladder with cystic duct obstruction. From GI standpoint, recommending transfer to higher level facility where the Whipple's was performed for continuity of care and potential surgical or oncological intervention at previous facility Objective vital signs Vital Sign Date Time Temp Pulse Resp B/P (MAP) Pulse Ox O2 Delivery O2 Flow Rate FiO2 11/04/24 14:53 76 18 122/82 11/04/24 13:00 97.5 95 97.5 11/04/24 07:30 Room Air* 0 21 Total Intake and Output 11/03/24 11/03/24 11/04/24 15:00 23:00 07:00 Intake Total 230 ml 1050 ml 300 ml Output Total 1200 ml 1100 ml Balance 230 ml -150 ml -800 ml medications Current Medications Medications Dose Ordered Sig/Desean Route Start Time Stop Time Status Last Admin Dose Admin Sodium Chloride 1,000 ml @ 60 mls/hr [id number] IV 10/31/24 21:45 11/03/24 18:09 60 MLS/HR Ondansetron HCl 4 mg Q4HP PRN IV 10/31/24 21:45 Docusate Sodium 100 mg BIDPRN PRN PO 10/31/24 21:45 11/04/24 08:53 100 MG Acetaminophen 650 mg Q6HP PRN PO 10/31/24 21:45 Nitroglycerin 0.4 mg Q5MINP PRN SL 10/31/24 22:30 Morphine Sulfate 2 mg Q30M PRN IV 10/31/24 22:30 Hydromorphone HCl 1 mg Q4HPRN PRN IV 11/01/24 04:00 11/04/24 14:53 1 MG Ceftriaxone Sodium 50 ml @ 100 mls/hr DAILY@09 IV 11/01/24 10:00 11/04/24 08:54 100 MLS/HR Metronidazole 100 ml @ 100 mls/hr Q8HR IV 11/01/24 14:00 11/04/24 13:06 100 MLS/HR Pantoprazole Sodium 40 mg BID IV 11/01/24 22:00 11/04/24 08:54 40 MG Acetaminophen/ Hydrocodone Bitart 1 tab Q4HP PRN PO 11/02/24 11:30 11/04/24 13:06 1 TAB Alprazolam 0.5 mg Q6HPRN PRN PO 11/03/24 10:45 11/04/24 10:27 0.5 MG Examination General Appearance: Alert, Oriented X3, Cooperative, No acute distress; cachexia HEENT: Atraumatic, PERRLA, EOMI, Mucous membr. moist/pink Respiratory: Clear to auscultation, Normal air movement Cardiovascular: Regular rate, Normal S1, Normal S2, No murmurs Abdominal: Normal bowel sounds, Soft, No hepatospenomegaly, No masses, thin scaphoid mildly tender laboratory and microbiology Laboratory Tests 11/04/24 04:22 11/01/24 07:12 Test 11/04/24 04:22 Range/Units Serum Glucose 87 74-106 mg/dL Microbiology Date/Time Source Procedure Growth Status 11/01/24 06:49 Nose MRSA Screen - Final Complete Problem List/Assessment/Plan Problem List/Assessment/Plan ASSESSMENT ( 1. 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 * Imaging reveals pancreatic calcifications, chronic changes. * Mass in the pancreatic head requires further evaluation. * Rule out: Pancreatic malignancy, ampullary stricture, recurrent pancreatitis. * Rule in: Chronic pancreatitis with suspected neoplasm. 2. Suspected Pancreatic Head Mass (3.1 x 3.2 cm, hypoenhancing) * CT angiogram concerning for neoplasm. * Elevated Alk Phos with biliary ductal dilatation. * Further characterized by MRI/MRCP. * Rule out: Ampullary obstruction, pancreatic adenocarcinoma, autoimmune pancreatitis. 3. Choledocholithiasis vs Biliary Obstruction * HIDA: Cystic duct obstruction, non-visualized GB. * US: Dilated CBD (10 mm) with sludge, no gallstones. * MRCP or EUS advised for further delineation. * Rule out: Gallbladder carcinoma, retained stones, stricture. 4. Post-Operative Biliary Dysfunction (Status-Post Whipple) * Multiple post-surgical complications possible including stricture, anastomotic leak, or recurrence. * Monitor for evidence of cholangitis or pancreatic insufficiency. TREATMENT PLAN (SYSTEM-OROZCO): Recommend transfer to tertiary center where the previous surgery was done for further evaluation and management. Continue clear liquid diet as tolerated. Gastrointestinal / Hepatobiliary: * Continue clear liquid diet. * Start Pancreatic enzyme supplements to address possible exocrine insufficiency. * Continue IV PPI for gastric protection and ulcer prevention. * Hold enteral/parenteral feeds unless unable to tolerate oral intake. Hepatobiliary Workup: * CA 19-19 elevated, alpha fetoprotein normal * Recommend MRI abdomen with pancreas protocol. * Consider EUS +/- biopsy depending on MRI findings. * Monitor LFTs, lipase, bilirubin, and CBC daily. Pain Control: * Continue Dilaudid IV PRN. * Consider GI-safe analgesics as adjuncts (e.g., Tylenol if LFTs permit). * Avoid NSAIDs due to pancreatitis and unclear renal reserve. Surgical Coordination: * Follow-up with prior surgical team at [facility] recommended. PROPHYLACTIC AND SUPPORTIVE ORDERS: * GI prophylaxis: Continue IV PPI Plan discussed with: Patient [place] RESIDENT Nov 04, 2024 17:02
[2024-11-04 17:03] VITALS: BP 114/75; PULSE 79; RESP 18; TEMP 97.6; O2SAT 98
[2024-11-04 21:00] VITALS: BP 113/76; PULSE 80; RESP 18; TEMP 98.5; O2SAT 99
[2024-11-05] VITALS (7 sets, daily range): BP systolic 101–136; BP diastolic 67–86; PULSE 68–96; RESP 17–20; TEMP 97.5–98.3; O2SAT 94–98
--- NOTE | 2024-11-05 17:06 | DVHPN2 ---
Subjective Patient doing well, abdominal pain continues using prn medications. Reviewed: H&P Changes from previous H/P or p: No Changes General: Per HPI Eyes: No Pain, No Vision change, No Conjunctivae inflammation, No Eyelid inflammation, No Other, No Redness ENT: No Ear pain, No Ear discharge, No Nose pain, No Nose discharge, No Nose congestion, No Mouth pain, No Mouth swelling, No Throat pain, No Throat swelling, No Other Cardiovascular: No Chest Pain, No Palpitations, No Orthopnea, No Paroxysmal Noc. Dyspnea, No Edema, No Lt Headedness, No Other Respiratory: No Cough, No Dry, No Shortness of breath, No SOB with excertion, No Wheezing, No Hemoptysis, No Pleuritic Pain, No Sputum, No Other Gastrointestinal: Nausea; No Vomiting; Abdominal Pain; No Diarrhea, No Constipation, No Melena, No Hematochezia, No Other Genitourinary: No Dysuria, No Frequency, No Incontinence, No Hematuria, No Retention, No Other Musculoskeletal: No other, No neck pain, No shoulder pain, No arm pain, No back pain, No hand pain, No leg pain, No foot pain Skin: No Rash, No Lesions, No Jaundice, No Bruising; Other (Surgical scar lower abdomen) Objective Vitals Vital Signs Date Time Temp Pulse Resp B/P (MAP) Pulse Ox O2 Delivery O2 Flow Rate FiO2 11/05/24 14:13 80 18 100/78 11/05/24 13:00 97.5 95 97.5 11/05/24 08:00 Room Air* 0 21 Intake/Output Intake and Output 11/05/24 07:00 Intake Total 3020 ml Output Total 2000 ml Balance 1020 ml Intake Oral 1870 ml IV Total 1150 ml Output Urine Total 2000 ml Exam GEN: Healthy appearing, well-developed, NAD. HEENT: NC/AT; MMM. CV: RRR, no m/r/g. LUNGS: CTAB, no w/r/c. ABD: Soft, NT/ND, NBS, no masses or organomegaly. Tender to palpation right upper quadrant EXT: skin Warm, well perfused. no rashes. No clubbing, cyanosis, or edema. NEURO: Ambulating with no limitations. No focal deficits. Medications Current Medications Medications Dose Ordered Sig/Desean Route Start Time Stop Time Status Last Admin Dose Admin Sodium Chloride 1,000 ml @ 60 mls/hr [id number] IV 10/31/24 21:45 11/05/24 16:33 60 MLS/HR Ondansetron HCl 4 mg Q4HP PRN IV 10/31/24 21:45 Docusate Sodium 100 mg BIDPRN PRN PO 10/31/24 21:45 11/05/24 12:14 100 MG Acetaminophen 650 mg Q6HP PRN PO 10/31/24 21:45 Nitroglycerin 0.4 mg Q5MINP PRN SL 10/31/24 22:30 Morphine Sulfate 2 mg Q30M PRN IV 10/31/24 22:30 Hydromorphone HCl 1 mg Q4HPRN PRN IV 11/01/24 04:00 11/05/24 13:43 1 MG Ceftriaxone Sodium 50 ml @ 100 mls/hr DAILY@09 IV 11/01/24 10:00 11/05/24 09:45 100 MLS/HR Metronidazole 100 ml @ 100 mls/hr Q8HR IV 11/01/24 14:00 11/05/24 13:42 100 MLS/HR Pantoprazole Sodium 40 mg BID IV 11/01/24 22:00 11/05/24 09:45 40 MG Acetaminophen/ Hydrocodone Bitart 1 tab Q4HP PRN PO 11/02/24 11:30 11/05/24 16:33 1 TAB Alprazolam 0.5 mg Q6HPRN PRN PO 11/03/24 10:45 11/04/24 20:09 0.5 MG Laboratory Results Laboratory Tests 11/01/24 07:12 11/04/24 04:22 Urinalysis Test 11/01/24 09:20 Urine Color Light-yellow (Yellow) Urine Clarity Clear (Clear) Urine pH 5.5 (5.0-9.0) Urine Specific [place] 1.009 (1.001-1.035) Urine Protein Negative (Negative) Urine Ketones Negative (Negative) Urine Blood Negative /uL (Negative) Urine Nitrite Negative (Negative) Urine Bilirubin Negative (Negative) Urine Urobilinogen Normal mg/dL (Negative) Urine Leukocyte Esterase Negative /uL (Negative) Urine RBC 1 /hpf (0 - 3) Urine Microscopic WBC < 1 /HPF (0-3) Urine Squamous Epithelial Cells None seen /hpf (<5) Urine Bacteria None seen /hpf (None Seen) Urine Glucose Normal mg/dL (Normal) Microbiology Microbiology Date/Time Source Procedure Growth Status 11/01/24 06:49 Nose MRSA Screen - Final Complete Labs and/or images reviewed: Labs reviewed by me, Image(s) reviewed by me Assessment/Plan Assessment/Plan 11/01: Patient doing okay still having pain. Surgery has ordered CT abdomen with oral and IV contrast. We will follow up with study. Until then we will control pains with prn 11/02: Patient pain continuing but appears tolerable. Patient appears comfortable, right upper quadrant pain is minimal. Imaging was suggesting gallbladder with stones dilated duct and pancreas head mass possibly obstructing the duct. Surgery and GI on board. We will request for notes from [facility], patient was seen surgical oncology Dr. Ríos. 11/03: We need records from [place] regarding patient's partial Whipple's . HIDA scan showing no filling of cystic duct. No comment on gallbladder being present on CT. We will follow up with GI and surgery. CA 19-9 is elevated. Surgery recommends transfer. Waiting for GI eval. Patient discharged see DC summary. 11/04: Patient aware of transfer status, in agreement. i Spoke to Dr. ríos, surgical oncology [place] yesterday. We will continue with transfer to higher level of care [facility] 11/05: Patient remains stable for discharge pending bed at [facility]. Diagnosis: Intractable abdominal pain History of partially Whipple's procedure Chronic pancreatitis History alcohol abuse Plan: Continue pain control CT abdomen with contrast and oral contrast IV Zofran Continue home meds Med surge Full code Plan discussed with: Patient Date of Service: Nov 05, 2024 Billing Provider: ARMIN PORRAS MD Common Visit Codes: [id number] INP/OBS CARE(MOD) ARMIN PORRAS MD Nov 05, 2024 17:06
--- NOTE | 2024-11-05 18:24 | MEDREC ---
[facility] ASP Intervention Section I [facility] ASP Intervention: IV to PO conversion (Patient has been eating well. Please consider metronidazole 500mg IV Q8H => 500mg PO Q8H), Review courses of therapy (PLEASE CONSIDER D/C ANTIBIOTIC IN ABSENCE OF BACTERIAL INFECTION) RAJEEV RAMIREZ [facility] RESIDENT Nov 05, 2024 18:24
--- NOTE | 2024-11-05 18:39 | DVHPN2 ---
Progress Note Date Seen: Nov 05, 2024 Resident Creating Document: [place] RESIDENT Has the PT tested + for MRSA If YES, has PT been informed?: No Medical Necessity Reason Pt with a Central, PICC or Fol: No Subjective Review of Systems Today's progress- The patient denies nausea or vomiting, reports tolerating clear liquid diet Still endorsing epigastric abdominal pain. Requesting a lot of pain m edications. Still waiting for bed availability at [facility] to transfer the patient The surgeon who did his previous procedures at [facility] accepted him to provide advanced level of care to the patient. He remains clinically stable, with normal WBC and liver function parameters. CA 19-19 level is elevated at 80 concerning for malignancy of the pancreas. Alkaline phosphatase remains elevated at 124 LFT, bilirubin and WBC are within normal limits. CT abdomen pelvis shows hypoenhancing mass in pancreatic head with CBD dilation and calcification consistent with chronic pancreatitis. HIDA scan confirms nonvisualization of gallbladder with cystic duct obstruction. Objective vital signs Vital Sign Date Time Temp Pulse Resp B/P (MAP) Pulse Ox O2 Delivery O2 Flow Rate FiO2 11/05/24 18:10 78 18 124/78 11/05/24 17:00 97.5 98 97.5 11/05/24 08:00 Room Air* 0 21 Total Intake and Output 11/04/24 11/04/24 11/05/24 15:00 23:00 07:00 Intake Total 1370 ml 1650 ml Output Total 900 ml 1100 ml Balance 470 ml 550 ml medications Current Medications Medications Dose Ordered Sig/Desean Route Start Time Stop Time Status Last Admin Dose Admin Sodium Chloride 1,000 ml @ 60 mls/hr [id number] IV 10/31/24 21:45 11/05/24 16:33 60 MLS/HR Ondansetron HCl 4 mg Q4HP PRN IV 10/31/24 21:45 Docusate Sodium 100 mg BIDPRN PRN PO 10/31/24 21:45 11/05/24 12:14 100 MG Acetaminophen 650 mg Q6HP PRN PO 10/31/24 21:45 Nitroglycerin 0.4 mg Q5MINP PRN SL 10/31/24 22:30 Morphine Sulfate 2 mg Q30M PRN IV 10/31/24 22:30 Hydromorphone HCl 1 mg Q4HPRN PRN IV 11/01/24 04:00 11/05/24 17:40 1 MG Ceftriaxone Sodium 50 ml @ 100 mls/hr DAILY@09 IV 11/01/24 10:00 11/05/24 09:45 100 MLS/HR Metronidazole 100 ml @ 100 mls/hr Q8HR IV 11/01/24 14:00 11/05/24 13:42 100 MLS/HR Pantoprazole Sodium 40 mg BID IV 11/01/24 22:00 11/05/24 09:45 40 MG Acetaminophen/ Hydrocodone Bitart 1 tab Q4HP PRN PO 11/02/24 11:30 11/05/24 16:33 1 TAB Alprazolam 0.5 mg Q6HPRN PRN PO 11/03/24 10:45 11/05/24 18:20 0.5 MG Examination General Appearance: Alert, Oriented X3, Cooperative, No acute distress; cachexia HEENT: Atraumatic, PERRLA, EOMI, Mucous membr. moist/pink Respiratory: Clear to auscultation, Normal air movement Cardiovascular: Regular rate, Normal S1, Normal S2, No murmurs Abdominal: Normal bowel sounds, Soft, No hepatospenomegaly, No masses, thin scaphoid mildly tender laboratory and microbiology Laboratory Tests 11/04/24 04:22 11/01/24 07:12 Test 11/04/24 04:22 Range/Units Serum Glucose 87 74-106 mg/dL Microbiology Date/Time Source Procedure Growth Status 11/01/24 06:49 Nose MRSA Screen - Final Complete Problem List/Assessment/Plan Problem List/Assessment/Plan ASSESSMENT ( 1. 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 * Imaging reveals pancreatic calcifications, chronic changes. * Mass in the pancreatic head requires further evaluation. * Rule out: Pancreatic malignancy, ampullary stricture, recurrent pancreatitis. * Rule in: Chronic pancreatitis with suspected neoplasm. 2. Suspected Pancreatic Head Mass (3.1 x 3.2 cm, hypoenhancing) * CT angiogram concerning for neoplasm. * Elevated Alk Phos with biliary ductal dilatation. * Further characterized by MRI/MRCP. * Rule out: Ampullary obstruction, pancreatic adenocarcinoma, autoimmune pancreatitis. 3. Choledocholithiasis vs Biliary Obstruction * HIDA: Cystic duct obstruction, non-visualized GB. * US: Dilated CBD (10 mm) with sludge, no gallstones. * MRCP or EUS advised for further delineation. * Rule out: Gallbladder carcinoma, retained stones, stricture. 4. Post-Operative Biliary Dysfunction (Status-Post Whipple) * Multiple post-surgical complications possible including stricture, anastomotic leak, or recurrence. * Monitor for evidence of cholangitis or pancreatic insufficiency. TREATMENT PLAN (SYSTEM-OROZCO): Pending transfer to tertiary center where the previous surgery was done for further evaluation and management. Continue clear liquid diet as tolerated. Gastrointestinal / Hepatobiliary: * Continue clear liquid diet. * Start Pancreatic enzyme supplements to address possible exocrine insufficiency. * Continue IV PPI for gastric protection and ulcer prevention. * Hold enteral/parenteral feeds unless unable to tolerate oral intake. Hepatobiliary Workup: * CA 19-19 elevated, alpha fetoprotein normal * Recommend MRI abdomen with pancreas protocol. * Consider EUS +/- biopsy depending on MRI findings. * Monitor LFTs, lipase, bilirubin, and CBC daily. Pain Control: * Continue Dilaudid IV. * Consider GI-safe analgesics as adjuncts (e.g., Tylenol if LFTs permit). * Avoid NSAIDs due to pancreatitis and unclear renal reserve. Surgical Coordination: * Follow-up with prior surgical team at [facility] recommended. PROPHYLACTIC AND SUPPORTIVE ORDERS: * GI prophylaxis: Continue IV PPI Plan discussed with: Patient Dietary Evaluation Review Recommendations by RD: Increase Calorie Intake, PPN/TPN Comments: Pt meets criteria for Severe Protein-Calorie Malnutrition in the setting of acute illness based on PO intake <50% estimated energy requirement and wt loss 1.4kg/ 3.0% in 1 month. Nutrition Recommendation: 1) Ensure Clear 240ml TID 2) TPN supplementation d/t high risk of essential fatty acid deficiency 3) Advance diet as medically feasible 4) Monitor PO intake, lab values, weight trend, and I/O Expected Outcomes/Goals: To meet >75% estimated needs GI symptoms to improve Lab values to improve Fu 2-3 days Food and Nutrition Intake (Sev: <50% est energy req 5days Interpretation of weight loss: up to 5% in 1 month Interpretation of weight loss: >10% in 6 months Protein Calorie Malnutrition: Severe Is there a minimum of two crit: Yes [place] RESIDENT Nov 05, 2024 18:39
[2024-11-06] VITALS (7 sets, daily range): BP systolic 99–158; BP diastolic 61–87; PULSE 75–91; RESP 18–20; TEMP 97.4–98.4; O2SAT 94–98
--- NOTE | 2024-11-06 10:14 | DVHPN2 ---
Subjective Patient doing well, abdominal pain continues using prn medications. Reviewed: H&P Changes from previous H/P or p: No Changes General: Per HPI Eyes: No Pain, No Vision change, No Conjunctivae inflammation, No Eyelid inflammation, No Other, No Redness ENT: No Ear pain, No Ear discharge, No Nose pain, No Nose discharge, No Nose congestion, No Mouth pain, No Mouth swelling, No Throat pain, No Throat swelling, No Other Cardiovascular: No Chest Pain, No Palpitations, No Orthopnea, No Paroxysmal Noc. Dyspnea, No Edema, No Lt Headedness, No Other Respiratory: No Cough, No Dry, No Shortness of breath, No SOB with excertion, No Wheezing, No Hemoptysis, No Pleuritic Pain, No Sputum, No Other Gastrointestinal: Nausea; No Vomiting; Abdominal Pain; No Diarrhea, No Constipation, No Melena, No Hematochezia, No Other Genitourinary: No Dysuria, No Frequency, No Incontinence, No Hematuria, No Retention, No Other Musculoskeletal: No other, No neck pain, No shoulder pain, No arm pain, No back pain, No hand pain, No leg pain, No foot pain Skin: No Rash, No Lesions, No Jaundice, No Bruising; Other (Surgical scar lower abdomen) Objective Vitals Vital Signs Date Time Temp Pulse Resp B/P (MAP) Pulse Ox O2 Delivery O2 Flow Rate FiO2 11/06/24 09:00 98.2 80 20 158/87 (110) 94 98.2 11/06/24 08:00 Room Air* 0 21 Intake/Output Intake and Output 11/06/24 07:00 Intake Total 1370 ml Output Total 900 ml Balance 470 ml Intake Oral 1120 ml IV Total 250 ml Output Urine Total 900 ml # Voids 2 Exam GEN: Healthy appearing, well-developed, NAD. HEENT: NC/AT; MMM. CV: RRR, no m/r/g. LUNGS: CTAB, no w/r/c. ABD: Soft, NT/ND, NBS, no masses or organomegaly. Tender to palpation right upper quadrant EXT: skin Warm, well perfused. no rashes. No clubbing, cyanosis, or edema. NEURO: Ambulating with no limitations. No focal deficits. Medications Current Medications Medications Dose Ordered Sig/Desean Route Start Time Stop Time Status Last Admin Dose Admin Sodium Chloride 1,000 ml @ 60 mls/hr [id number] IV 10/31/24 21:45 11/05/24 16:33 60 MLS/HR Ondansetron HCl 4 mg Q4HP PRN IV 10/31/24 21:45 Docusate Sodium 100 mg BIDPRN PRN PO 10/31/24 21:45 11/05/24 12:14 100 MG Acetaminophen 650 mg Q6HP PRN PO 10/31/24 21:45 Nitroglycerin 0.4 mg Q5MINP PRN SL 10/31/24 22:30 Morphine Sulfate 2 mg Q30M PRN IV 10/31/24 22:30 Hydromorphone HCl 1 mg Q4HPRN PRN IV 11/01/24 04:00 11/06/24 06:37 1 MG Ceftriaxone Sodium 50 ml @ 100 mls/hr DAILY@09 IV 11/01/24 10:00 11/05/24 09:45 100 MLS/HR Metronidazole 100 ml @ 100 mls/hr Q8HR IV 11/01/24 14:00 11/06/24 06:00 100 MLS/HR Pantoprazole Sodium 40 mg BID IV 11/01/24 22:00 11/05/24 22:07 40 MG Acetaminophen/ Hydrocodone Bitart 1 tab Q4HP PRN PO 11/02/24 11:30 11/06/24 03:44 1 TAB Alprazolam 0.5 mg Q6HPRN PRN PO 11/03/24 10:45 11/05/24 18:20 0.5 MG Laboratory Results Laboratory Tests 11/01/24 07:12 11/04/24 04:22 Urinalysis Test 11/01/24 09:20 Urine Color Light-yellow (Yellow) Urine Clarity Clear (Clear) Urine pH 5.5 (5.0-9.0) Urine Specific [place] 1.009 (1.001-1.035) Urine Protein Negative (Negative) Urine Ketones Negative (Negative) Urine Blood Negative /uL (Negative) Urine Nitrite Negative (Negative) Urine Bilirubin Negative (Negative) Urine Urobilinogen Normal mg/dL (Negative) Urine Leukocyte Esterase Negative /uL (Negative) Urine RBC 1 /hpf (0 - 3) Urine Microscopic WBC < 1 /HPF (0-3) Urine Squamous Epithelial Cells None seen /hpf (<5) Urine Bacteria None seen /hpf (None Seen) Urine Glucose Normal mg/dL (Normal) Microbiology Microbiology Date/Time Source Procedure Growth Status 11/01/24 06:49 Nose MRSA Screen - Final Complete Labs and/or images reviewed: Labs reviewed by me, Image(s) reviewed by me Assessment/Plan Assessment/Plan 11/01: Patient doing okay still having pain. Surgery has ordered CT abdomen with oral and IV contrast. We will follow up with study. Until then we will control pains with prn 11/02: Patient pain continuing but appears tolerable. Patient appears comfortable, right upper quadrant pain is minimal. Imaging was suggesting gallbladder with stones dilated duct and pancreas head mass possibly obstructing the duct. Surgery and GI on board. We will request for notes from [facility], patient was seen surgical oncology Dr. Ríos. 11/03: We need records from [place] regarding patient's partial Whipple's . HIDA scan showing no filling of cystic duct. No comment on gallbladder being present on CT. We will follow up with GI and surgery. CA 19-9 is elevated. Surgery recommends transfer. Waiting for GI eval. Patient discharged see DC summary. 11/04: Patient aware of transfer status, in agreement. i Spoke to Dr. ríos, surgical oncology [place] yesterday. We will continue with transfer to higher level of care [facility] 11/05: Patient remains stable for discharge pending bed at [facility]. 11/06- continue to wait for transfer. stable for transfer to [facility]. ambulance form done. Diagnosis: Intractable abdominal pain History of partially Whipple's procedure Chronic pancreatitis History alcohol abuse Plan: Continue pain control CT abdomen with contrast and oral contrast IV Zofran Continue home meds Med surge Full code Plan discussed with: Patient My Orders Orders - ARMIN PORRAS MD Procedure Category Date Status Time Notify Provider NOTICE 11/05/24 Transmitted Malnutrition 17:23 Nutritional NOURISH 11/05/24 Transmitted Supplements 17:23 Increase Calorie NOURISH 11/05/24 Transmitted Intake 17:23 Date of Service: Nov 06, 2024 Billing Provider: ARMIN PORRAS MD Common Visit Codes: [id number] INP/OBS CARE(MOD) ARMIN PORRAS MD Nov 06, 2024 10:14
--- NOTE | 2024-11-06 15:52 | DVHPN2 ---
Progress Note Date Seen: Nov 06, 2024 Resident Creating Document: [place] RESIDENT Has the PT tested + for MRSA If YES, has PT been informed?: No Medical Necessity Reason Pt with a Central, PICC or Fol: No Subjective Review of Systems Today's progress- The patient denies nausea or vomiting, reports tolerating clear liquid diet Still endorsing epigastric abdominal pain. Requesting a lot of pain m edications. Still waiting for bed availability at [place] to transfer the patient The surgeon who did his previous procedures at [facility] accepted him to provide advanced level of care to the patient. He remains clinically stable, with normal WBC and liver function parameters. CA 19-19 level is elevated at 80 concerning for malignancy of the pancreas. Alkaline phosphatase remains elevated at 124 LFT, bilirubin and WBC are within normal limits. CT abdomen pelvis shows hypoenhancing mass in pancreatic head with CBD dilation and calcification consistent with chronic pancreatitis. HIDA scan confirms nonvisualization of gallbladder with cystic duct obstruction. continue to wait for transfer. Objective vital signs Vital Sign Date Time Temp Pulse Resp B/P (MAP) Pulse Ox O2 Delivery O2 Flow Rate FiO2 11/06/24 14:47 96 16 106/74 11/06/24 13:00 98.0 97 98.0 11/06/24 08:00 Room Air* 0 21 Total Intake and Output 11/05/24 11/05/24 11/06/24 15:00 23:00 07:00 Intake Total 150 ml 520 ml 700 ml Output Total 900 ml Balance 150 ml 520 ml -200 ml medications Current Medications Medications Dose Ordered Sig/Desean Route Start Time Stop Time Status Last Admin Dose Admin Sodium Chloride 1,000 ml @ 60 mls/hr [id number] IV 10/31/24 21:45 11/06/24 11:18 60 MLS/HR Ondansetron HCl 4 mg Q4HP PRN IV 10/31/24 21:45 Docusate Sodium 100 mg BIDPRN PRN PO 10/31/24 21:45 11/05/24 12:14 100 MG Acetaminophen 650 mg Q6HP PRN PO 10/31/24 21:45 Nitroglycerin 0.4 mg Q5MINP PRN SL 10/31/24 22:30 Morphine Sulfate 2 mg Q30M PRN IV 10/31/24 22:30 Hydromorphone HCl 1 mg Q4HPRN PRN IV 11/01/24 04:00 11/06/24 14:47 1 MG Ceftriaxone Sodium 50 ml @ 100 mls/hr DAILY@09 IV 11/01/24 10:00 11/06/24 10:20 100 MLS/HR Metronidazole 100 ml @ 100 mls/hr Q8HR IV 11/01/24 14:00 11/06/24 14:46 100 MLS/HR Pantoprazole Sodium 40 mg BID IV 11/01/24 22:00 11/06/24 10:20 40 MG Acetaminophen/ Hydrocodone Bitart 1 tab Q4HP PRN PO 11/02/24 11:30 11/06/24 11:54 1 TAB Alprazolam 0.5 mg Q6HPRN PRN PO 11/03/24 10:45 11/06/24 15:17 0.5 MG Examination General Appearance: Alert, Oriented X3, Cooperative, No acute distress; cachexia HEENT: Atraumatic, PERRLA, EOMI, Mucous membr. moist/pink Respiratory: Clear to auscultation, Normal air movement Cardiovascular: Regular rate, Normal S1, Normal S2, No murmurs Abdominal: Normal bowel sounds, Soft, No hepatospenomegaly, No masses, mildly tender laboratory and microbiology Laboratory Tests 11/04/24 04:22 11/01/24 07:12 Test 11/04/24 04:22 Range/Units Serum Glucose 87 74-106 mg/dL Microbiology Date/Time Source Procedure Growth Status 11/01/24 06:49 Nose MRSA Screen - Final Complete Labs and/or images reviewed: Labs reviewed by me, Image(s) reviewed by me Problem List/Assessment/Plan Problem List/Assessment/Plan ASSESSMENT ( 1. 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 * Imaging reveals pancreatic calcifications, chronic changes. * Mass in the pancreatic head requires further evaluation. * Rule out: Pancreatic malignancy, ampullary stricture, recurrent pancreatitis. * Rule in: Chronic pancreatitis with suspected neoplasm. 2. Suspected Pancreatic Head Mass (3.1 x 3.2 cm, hypoenhancing) * CT angiogram concerning for neoplasm. * Elevated Alk Phos with biliary ductal dilatation. * Further characterized by MRI/MRCP. * Rule out: Ampullary obstruction, pancreatic adenocarcinoma, autoimmune pancreatitis. 3. Choledocholithiasis vs Biliary Obstruction * HIDA: Cystic duct obstruction, non-visualized GB. * US: Dilated CBD (10 mm) with sludge, no gallstones. * MRCP or EUS advised for further delineation. * Rule out: Gallbladder carcinoma, retained stones, stricture. 4. Post-Operative Biliary Dysfunction (Status-Post Whipple) * Multiple post-surgical complications possible including stricture, anastomotic leak, or recurrence. * Monitor for evidence of cholangitis or pancreatic insufficiency. TREATMENT PLAN (SYSTEM-OROZCO): Pending transfer to tertiary center where the previous surgery was done for further evaluation and management. Continue clear liquid diet as tolerated. Gastrointestinal / Hepatobiliary: * Continue clear liquid diet. * Start Pancreatic enzyme supplements to address possible exocrine insufficiency. * Continue IV PPI for gastric protection and ulcer prevention. * Hold enteral/parenteral feeds unless unable to tolerate oral intake. Hepatobiliary Workup: * CA 19-19 elevated, alpha fetoprotein normal * Recommend MRI abdomen with pancreas protocol. * Consider EUS +/- biopsy depending on MRI findings. * Monitor LFTs, lipase, bilirubin, and CBC daily. Pain Control: * Continue Dilaudid IV. * Consider GI-safe analgesics as adjuncts (e.g., Tylenol if LFTs permit). * Avoid NSAIDs due to pancreatitis and unclear renal reserve. Surgical Coordination: * Follow-up with prior surgical team at [facility] recommended. PROPHYLACTIC AND SUPPORTIVE ORDERS: * GI prophylaxis: Continue IV PPI Plan discussed with: Patient Dietary Evaluation Review Recommendations by RD: Increase Calorie Intake, PPN/TPN Comments: Pt meets criteria for Severe Protein-Calorie Malnutrition in the setting of acute illness based on PO intake <50% estimated energy requirement and wt loss 1.4kg/ 3.0% in 1 month. Nutrition Recommendation: 1) Ensure Clear 240ml TID 2) TPN supplementation d/t high risk of essential fatty acid deficiency 3) Advance diet as medically feasible 4) Monitor PO intake, lab values, weight trend, and I/O Expected Outcomes/Goals: To meet >75% estimated needs GI symptoms to improve Lab values to improve Fu 2-3 days Food and Nutrition Intake (Sev: <50% est energy req 5days Interpretation of weight loss: up to 5% in 1 month Interpretation of weight loss: >10% in 6 months Protein Calorie Malnutrition: Severe Is there a minimum of two crit: Yes [place] RESIDENT Nov 06, 2024 15:52
[2024-11-07 01:00] VITALS: BP 100/60; PULSE 70; RESP 18; TEMP 97.9; O2SAT 97
[2024-11-07 04:48] VITALS: BP 117/74; PULSE 68; RESP 18; TEMP 98.6; O2SAT 94
[2024-11-07 08:48] VITALS: BP 107/72; PULSE 82; RESP 16; TEMP 98.5; O2SAT 94
[2024-11-07 12:38] VITALS: BP 99/74; PULSE 88; RESP 16; TEMP 98.1; O2SAT 96
[2024-11-07 12:58] VITALS: BP 105/73; PULSE 88; RESP 16
--- NOTE | 2024-11-09 08:26 | ECG ---
[facility] Test Date: 2024-11-06 Test Time: 15:32:52 Pat Name: BC STERLING Department: Room: 0272 B Gender: M Orchard Pruner: geo gilmore : 1970 Requested By: ARMIN ANTONIO Order Number: [id number] Reading MD: Jonatan Ornelas Measurements Intervals [place] Rate: 76 P: 97 WI: 138 QRS: 78 QRSD: 88 T: 86 QT: 398 QTc: 448 Interpretive Statements Sinus rhythm and associated artifacts Right atrial enlargement Consider right ventricular hypertrophy Nonspecific T abnormalities, lateral leads Artifact in lead(s) I,II,aVR,aVL,aVF Electronically Signed On 11-10-2024 13:20:39 PDT by Jonatan Ornelas Please click the below link to view image of tracing.
== END 2024-11-07 13:24 | disposition short-term general hospital (02) | DRG 282 ==
LOC: ER 15:24 → OVERFLOW 22:17 → WEST WING 11-01 03:03
PROVIDERS: ADMIT Student in an Organized Health Care Education/Training Program; ATTEND Student in an Organized Health Care Education/Training Program
DX: K86.89 Other specified diseases of pancreas (principal); E43 Unspecified severe protein-calorie malnutrition; K83.8 Other specified diseases of biliary tract; K80.41 Calculus of bile duct with cholecystitis, unspecified, with obstruction; F41.9 Anxiety disorder, unspecified; K86.1 Other chronic pancreatitis; F17.210 Nicotine dependence, cigarettes, uncomplicated; Z68.1 Body mass index [BMI] 19.9 or less, adult
CPT/HCPCS: 36415; 74177; 76705; 78226; 80053; 81001; 82105; 83036; 83690; 84484; 85025; 86301; 87081; 93005; 96361; 96374; G0378; J2405; J2470; J3490

== ENCOUNTER 2024-12-05 17:54 | Inpatient (IN) | payer MEDICAID ==
[~2024-12-05] VITALS: Ht 167.6 cm; Wt 46.0 kg
[~2024-12-05 17:54] MED LIST changes: -ACET-1882 PO; -AUG875T PO; -AZIT-43 PO; -ETHA100T14 PO; -FOLI-119 PO; +HYDR-4072 PO; -HYDR-4902 PO; -IBUP-1455 PO; -LACT10SO3 PO; -METO10TA3 PO; -MULT-1056 PO; +NICO21DI37 TOP; -OXY20CRT PO; -PERCOT PO; -RIFA150C27 PO; -RIVA2.5T PO; -SUCR1TAB PO; -[UNRECOGNIZED DRUG - CODE] PO
--- NOTE | 2024-12-05 18:25 | ED.PDOC ---
History of Present Illness HPI Comments 54 y/o underweight M, with a Hx of anxiety, chronic pancreatitis, hernia repair, post op biliary dysfunction, and alcohol abuse, presents with c/c abdominal pain, nausea, constipation, and generalized weakness. Patient endorses on returning to the ED for same complaint as previous visits in the past. He comm ents on having issues in obtaining proper GI outpatient care for his chronic pancreatitis. LBM was yesterday. Denies of any vomiting, diarrhea, urinary symptoms, fever, chills, or further associated symptoms. Vital signs were stable on arrival. Chief Complaint: General Weakness Time Seen by MD: 18:20 Primary Care Provider: MARK Reviewed Notes: Nurses Notes, Medications, Allergies Allergies: Coded Allergies: NO KNOWN ALLERGIES (Unverified , 02/16/24) Home Meds Reported Medications Nicotine (Nicotine Transdermal Syst) 21 Mg/24 Hr Dis, TOP 11/01/24 Hydrocodone-Acetaminophen (Hydrocodone/Acetaminophen 10-325 mg) 1 Tab Tab, 1 TAB PO Q4HP PRN for PAIN SCALE 7 THRU 10 11/01/24 Pancreatic Enzymes (Creon) 12,000 Unt Cap, 92092 UNT PO TID, CAP 11/01/24 Information Source: Patient Mode of Arrival: Ambulatory Severity: Moderate Timing: Days Duration: Since onset Prehospital treatment: None Past Medical History PAST MEDICAL HISTORY: Anxiety Past Medical History (Other): chronic pancreatitis Surgical History: Hernia Repair Surgical History (Other): post op biliary dysfunction Family History Family History: Reviewed,noncontributory to illness, Unknown Social History Smoker: Cigarettes Alcohol: Sober Drugs: Denies Drug Use Lives In: Home Constitutional: denies: chills, diaphoresis, fatigue, fever, malaise, sweats, weakness, others EENTM: denies: blurred vision, double vision, ear bleeding, ear discharge, ear drainage, ear pain, ear ringing, eye pain, eye redness, hearing loss, mouth pain, mouth swelling, nasal discharge, nose bleeding, nose congestion, nose pain, photophobia, tearing, throat pain, throat swelling, voice changes, others Respiratory: denies: cough, hemoptysis, orthopnea, SOB at rest, shortness of breath, SOB with excertion, stridor, wheezing, others Cardiovascular: denies: chest pain, dizzy spells, diaphoresis, Dyspnea on exertion, edema, irregular heart beat, left arm pain, lightheadedness, palpitations, PND, syncope, others Gastrointestinal: reports: abdominal pain, nausea, vomiting; denies: abdomen distended, blood streaked bowels, constipated, diarrhea, dysphagia, difficulty swallowing, hematemesis, melena, poor appetite, poor fluid intake, rectal bleeding, rectal pain, others Genitourinary: denies: burning, dysuria, flank pain, frequency, hematuria, incontinence, penile discharge, penile sore, pain, testicle pain, testicle swelling, urgency, others Neurological: denies: dizziness, fainting, headache, left sided numbness, left sided weakness, numbness, paresthesia, pre-existing deficit, right sided numbness, right sided weakness, seizure, speech problems, tingling, tremors, weakness, others Musculoskeletal: denies: back pain, gout, joint pain, joint swelling, muscle pain, muscle stiffness, neck pain, others Integumetry: denies: bruises, change in color, change in hair/nails, dryness, laceration, lesions, lumps, rash, wounds, others Allergic/Immunocompromised: denies: Difficulty Healing, Frequent Infections, Hives, Itching, others Hematologic/Lymphatic: denies: anemia, blood clots, easy bleeding, easy bruising, swollen glands, others Endocrine: denies: excessive hunger, excessive sweating, excessive thirst, excessive urination, flushing, intolerance to cold, intolerance to heat, unexplained weight gain, unexplained weight loss, others Psychiatric: denies: anxiety, bipolar disorder, depression, hopeless, panic disorder, schizophrenia, sleepless, suicidal, others All Other Systems: Reviewed and Negative (Comprehensive review of systems are negative unless stated in HPI) Physical Exam General Appearance: Moderate Distress (Moderate distress due to belly pain concerns.), Thin HEENT: Normal ENT Inspection, Pharynx Normal, TMs Normal Neck: Full Range of Motion, Non-Tender, Normal, Normal Inspection Respiratory: Chest Non-Tender, Lungs Clear, No Accessory Muscle Use, No Respi ratory Distress, Normal Breath Sounds Cardiovascular: No Edema, No JVD, No Murmur, No Gallop, Normal Peripheral Pulses, Regular Rate/Rhythm Breast Exam: Deferred Gastrointestinal: Other (Diffuse bilateral epigastric tenderness to palpation throughout. No signs of trauma. Abdomen was moderately rigid.) Genitalia: Deferred Pelvic: Deferred Rectal: Deferred Extremities: No calf tenderness, Normal capillary refill, Normal inspection, Normal range of motion, Non-tender, No pedal edema Neurologic: Alert Cerebellar Function: NOT DONE Reflexes: NOT DONE Skin: Dry, Normal Color, Warm Lymphatic: No Adenopathy Was a procedure done? Was a procedure done?: No Differential Dx Considerations may include: chronic pancreatitis, gastritis, gastroenteritis, GERD, PUD, viral syndrome, among others X-Ray, Labs, Meds, VS Vital Signs Date Time Temp Pulse Resp B/P (MAP) Pulse Ox O2 Delivery O2 Flow Rate FiO2 12/05/24 17:56 98.1 105 18 93/64 98 98.1 X-Ray, Labs, Meds, VS Comment Studies were pending at time of this note. This patient needs to be seen by a primary care or specialist to manage his abdominal pain concerns. Patient will be admitted for re-evaluation and management of pain while at the facility. Time of 1ST Reevaluation: 18:28 Reevaluation 1ST: Improved Consultation: PCP, GI Patient Education/Counseling: Diagnosis, Treatment Family Education/Counseling: Diagnosis, Treatment, No Family Present SEPSIS Sepsis Screen Date sepsis recognized/suspect: Dec 05, 2024 Time Sepsis recognized/suspect: 1756 Recent Procedure: No On Antibiotic Therapy: No Respiratory Rate >20: No Heart Rate >90: No Temp<36 C (96.8 F) or >38.3 C: No SBP <90 or MAP <65 mmHG: No New Acute Mental Status Change: No Is the patient on CPAP, BIPAP,: No Physician Orders Troponin-I Hs (12/05/24 18:22) Complete Blood Count (12/05/24 18:22) Comprehensive Metabolic Panel (12/05/24 18:22) Urinalysis (12/05/24 18:22) Troponin-I Hs (12/05/24 19:22) Troponin-I Hs (12/05/24 21:22) Lipase (12/05/24 18:22) Hydromorphone Injection (Dilaudid Inject (12/05/24 18:30) Vital Signs Date Time Temp Pulse Resp B/P (MAP) Pulse Ox O2 Delivery O2 Flow Rate FiO2 12/05/24 17:56 98.1 105 18 93/64 98 98.1 Departure 1 Departure Time of Disposition: 18:28 Impression: Primary Impression: Acute on chronic pancreatitis Disposition: ADMITTED INPATIENT Condition: Fair Discharged With: Self Critical Care Note Critical Care Time?: No Stability Stability form required: No Heart Score Heart Score: Heart Score Response (Comments) Value History N/A 0 EKG N/A 0 Age N/A 0 Risk Factors N/A 0 Troponin N/A 0 Total 0 I personally scribed for LIDIA GRAY PAC ([email or web address]) on 12/05/24 at 18:25. Electronically submitted by Rahul Renae ([email or web address]). LIDIA GRAY PAC Dec 05, 2024 18:25
[2024-12-05] MEDS: HYDROmorphone HCL 2 MG/ML VL/or syr IM ONE (18:56)
[2024-12-05 19:25] LABS: Hematocrit 39.0 % (41.0-53.0); Hemoglobin 13.0 g/dL (13.5-17.5); Mean Corpuscular Hemoglobin 31.3 pg (28.0-32.0); Mean Corpuscular Volume 93.9 fL (80.0-100.0); Nucleated Red Blood Cells % 0.1 %
[2024-12-05 19:32] LABS: Alanine Aminotransferase 16 U/L (7-40); Albumin 4.0 g/dL (3.2-4.8); Anion Gap 8 (5-15); BUN/Creatinine Ratio 16.0 (10.0-20.0); Blood Urea Nitrogen 12 mg/dL (9-23); Calcium 9.4 mg/dL (8.7-10.4); Carbon Dioxide 27 mmol/L (20-31); Chloride 103 mmol/L (98-107); Lipase 31 U/L (12-53); Potassium 4.6 mmol/L (3.5-5.1); Sodium 138 mmol/L (136-145); Total Protein 6.9 g/dL (5.7-8.2)
[2024-12-05 19:33] LABS: Alkaline Phosphatase 161 U/L (46-116); Bilirubin, Total 0.2 mg/dL (0.2-1.0); Glucose 130 mg/dL (74-106)
[2024-12-05] MEDS ORDERED: ACETAMINOPHEN 500 MG TAB or CAP PO PRN (21:00)
--- NOTE | 2024-12-05 21:01 | DVHHPRES ---
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 Post-Operative Biliary Dysfunction, Chronic pancreatitis and alcohol use who presented to the ER with a chief complaint of epigastric radiating to the back, 8/10 in intensity, started 2 days back and has been constant, last bowel movement earlier this morning, reports nausea and chills, denies vomiting or fever. Patient was recently seen in his hospital for similar reasons and was transferred to [place] where he was treated with IV antibiotics and was discharged in a couple of days per the patient. Patient is currently asking for pain medications and is refusing abdominal examination. CT abdomen 11/01 showing Heterogeneous lesion/ mass in the pancreatic head region that is hypoenhancing measuring 3.1 x 3.2 cm concerning for potential pancreatic mass /neoplasm. Recommend GI and surgical consultation for further evaluation. Dilatation of the common bile duct, intrahepatic ducts which is new from the previous examination from 03/18/2024 with abrupt tapering near the pancreatic head / periampullary region, also raising concern for potential pancreatic mass /neoplasm. Pancreatic calcifications consistent with chronic pancreatitis changes. past medica/surgical l history of recently diagnosed pancreatic head mass (3.1 x 3.2 cm) with biliary dilation, history of partial Whipple procedure, Puestow procedure with modified sprey. Post-Operative Biliary Dysfunction, Chronic pancreatitis and alcohol use [facility] Home medications: Kramer and Percocet Review of Systems Allergies: Coded Allergies: NO KNOWN ALLERGIES (Unverified , 02/16/24) Exam Vital Signs Vital Signs Date Time Temp Pulse Resp B/P (MAP) Pulse Ox O2 Delivery O2 Flow Rate FiO2 12/05/24 19: 115 18 98 Room Air 12/05/24 19: 98.0 132/93 (106) 98.0 Exam Male patient sitting on a bench outside ER, reporting pain General: Cachectic appearing, afebrile, palor, mucosae are moist Cardiovascular: Tachycardic but Regular S1 and S2. No murmurs, gallops or rubs. No JVD elevation. No pedal edema Respiratory: Bilateral decreased air entry Abdomen: Patient refused abdominal examination given pain Genitourinary: Deferred MSK/skin: Mobilizes 4 limbs. Skin is dry and warm Neurological: Pupils are isocoric and reactive. Psych/Mental Status: A/Ox3 Labs/Xrays Labs Test 12/05/24 20:03 12/05/24 19:02 Range/Units Troponin I High Sensitivity < 3 L </=54 ng/L White Blood Count 7.0 4.4-10.8 10^3/uL Red Blood Count 4.15 L 4.5-5.90 10^6/uL Hemoglobin 13.0 L 13.5-17.5 g/dL Hematocrit 39.0 L 41.0-53.0 % Mean Corpuscular Volume 93.9 80.0-100.0 fL Mean Corpuscular Hemoglobin 31.3 28.0-32.0 pg Mean Corpuscular Hemoglobin Concent 33.3 32.0-36.0 g/dL Red Cell Distribution Width 16.3 H 11.8-14.3 % Platelet Count 391 140-450 10^3/uL Mean Platelet Volume 6.8 L 6.9-10.8 fL Neutrophils (%) (Auto) 55.2 37.0-80.0 % Lymphocytes (%) (Auto) 33.4 10.0-50.0 % Monocytes (%) (Auto) 8.8 0.0-12.0 % Eosinophils (%) (Auto) 1.9 0.0-7.0 % Basophils (%) (Auto) 0.7 0.0-2.0 % Neutrophils # (Auto) 3.8 1.6-8.6 10 ^3/uL Lymphocytes # (Auto) 2.3 0.4-5.4 10 ^3/uL Monocytes # (Auto) 0.6 0-1.3 10 ^3/uL Eosinophils # (Auto) 0.1 0-0.8 10 ^3/uL Basophils # (Auto) 0.1 0-0.2 10 ^3/uL Nucleated Red Blood Cells 0.1 % Sodium Level 138 136-145 mmol/L Potassium Level 4.6 3.5-5.1 mmol/L Chloride Level 103 98-107 mmol/L Carbon Dioxide Level 27 20-31 mmol/L Anion Gap 8 5-15 Blood Urea Nitrogen 12 9-23 mg/dL Creatinine 0.75 0.700-1.30 mg/dL Glomerular Filtration Rate Calc 107 >90 mL/min BUN/Creatinine Ratio 16.0 10.0-20.0 Serum Glucose 130 H 74-106 mg/dL Calcium Level 9.4 8.7-10.4 mg/dL Total Bilirubin 0.2 0.2-1.0 mg/dL Aspartate Amino Transferase (AST) 23 13-40 U/L Alanine Aminotransferase (ALT) 16 7-40 U/L Alkaline Phosphatase 161 H 46-116 U/L Total Protein 6.9 5.7-8.2 g/dL Albumin 4.0 3.2-4.8 g/dL Lipase 31 12-53 U/L SEPSIS Sepsis Screen Date sepsis recognized/suspect: Dec 05, 2024 Time Sepsis recognized/suspect: 1756 Recent Procedure: No On Antibiotic Therapy: No Respiratory Rate >20: No Heart Rate >90: No Temp<36 C (96.8 F) or >38.3 C: No SBP <90 or MAP <65 mmHG: No New Acute Mental Status Change: No Is the patient on CPAP, BIPAP,: No Physician Orders Urinalysis (12/05/24 18:22) Troponin-I Hs (12/05/24 21:22) Admit (12/05/24 21:00) Tylenol 500mg (12/05/24 21:00) Kramer 5/325mg (12/05/24 21:00) Morphine 2mg (12/05/24 21:00) Vital Signs Date Time Temp Pulse Resp B/P (MAP) Pulse Ox O2 Delivery O2 Flow Rate FiO2 12/05/24 19:01 115 18 98 Room Air 12/05/24 19:01 98.0 115 18 132/93 (106) 98 98.0 12/05/24 18:56 115 20 132/93 12/05/24 17:56 98.1 105 18 93/64 98 98.1 Laboratory Tests Test 12/05/24 19:02 White Blood Count 7.0 10^3/uL (4.4-10.8) Medications Medications Dose Ordered Sig/Desean Route Start Time Stop Time Status Last Admin Dose Admin Hydromorphone HCl 0.5 mg ONCE ONCE IM 12/05/24 18:30 12/05/24 18:31 DC 12/05/24 18:56 0.5 MG Assessment/Plan Assessment/Plan Intractable abdominal pain likely acute on chronic pancreatitis Anemia likely normocytic History of pancreatic mass History of chronic pancreatitis History of partial Whipple procedure - clear liquid diet - pantoprazole IV daily - CT abdomen and pelvis without contrast pending - Tylenol/Kramer/morphine for pain control - IV LR 75 cc/hour - lipase pending - resume home medication pancreatic enzymes Creon 78832 units TID - CA 04/12 80 11/02 Plan discussed with the patient in which all questions have been answered Goals of care discussed with the patient for more than 18 minutes, full code status Case discussed with Dr. Olmedo Plan discussed with: Patient My Orders Orders - BERNIE ALEMAN Procedure Category Date Status Time Admit ADMIT 12/05/24 Verified 21:00 Tylenol 500mg PHA 12/05/24 Verified 21:00 Kramer 5/325mg PHA 12/05/24 Verified 21:00 Morphine 2mg PHA 12/05/24 Verified 21:00 Date of Service: Dec 05, 2024 Billing Provider: MYRNA OLMEDO MD Common Visit Codes: [id number] INP/OBS CARE (HIGH) BERNIE ALEMAN Dec 05, 2024 21:01
[2024-12-05 21:52] LABS: Magnesium 2.1 mg/dL (1.6-2.6)
[2024-12-05 21:53] LABS: Amylase 59.0 U/L (30-118)
[2024-12-05 21:57] LABS: INR 1.08 (0.9-1.15); Partial Thromboplastin Time 34.2 SEC (24.5-34.5); Prothrombin Time 11.4 sec (9.3-11.8)
[2024-12-05] MEDS: PANTOPRAZOLE 40 MG/10 ML VIAL INJ IV ONE (22:32)
[2024-12-05 22:43] LABS: Urine Protein, UAD TRACE (Negative)
[2024-12-05] MEDS: LACTATED RINGER'S 1,000 ML IV ONE (22:44)
[2024-12-05 22:51] LABS: Amphetamine Screen, Urine Neg (NEGATIVE)
[2024-12-05 22:53] LABS: Barbiturate Scree,Urine Neg (NEGATIVE); Benzodiazephine Screen, Urine Neg (NEGATIVE); Cannabinoid Screen, Urine Neg (NEGATIVE); Cocaine Screen, Urine Neg (NEGATIVE); Opiate Scree,Urine Pos (NEGATIVE); Phencyclidine Screen, Urine Neg (NEGATIVE)
[2024-12-05 23:24] VITALS: BP 96/70; PULSE 78; RESP 18; TEMP 98.5; O2SAT 95
[2024-12-06] MEDS: HYDROmorphone HCL 2 MG/ML VL/or syr IV ONE (00:17)
[2024-12-06] MEDS: MORPHINE SULFATE INJ 2 MG/ml SYRG IV PRN ×2 (02:01→15:23)
[2024-12-06] MEDS: HYDROcodone-ACET 5/325MG TAB PO PRN (03:18)
[2024-12-06 04:20] LABS: Hematocrit 35.3 % (41.0-53.0); Hemoglobin 11.8 g/dL (13.5-17.5); Mean Corpuscular Hemoglobin 31.2 pg (28.0-32.0); Mean Corpuscular Volume 93.0 fL (80.0-100.0); Nucleated Red Blood Cells % 0.0 %
[2024-12-06 04:36] LABS: Alanine Aminotransferase 13 U/L (7-40); Albumin 3.8 g/dL (3.2-4.8); Anion Gap 6 (5-15); BUN/Creatinine Ratio 17.5 (10.0-20.0); Blood Urea Nitrogen 11 mg/dL (9-23); Calcium 9.3 mg/dL (8.7-10.4); Carbon Dioxide 28 mmol/L (20-31); Chloride 104 mmol/L (98-107); Potassium 3.9 mmol/L (3.5-5.1); Sodium 138 mmol/L (136-145); Total Protein 6.6 g/dL (5.7-8.2)
[2024-12-06 04:37] LABS: Alkaline Phosphatase 140 U/L (46-116); Bilirubin, Total 0.2 mg/dL (0.2-1.0); Glucose 113 mg/dL (74-106)
[2024-12-06 08:25] VITALS: BP 100/65; PULSE 82; RESP 14; TEMP 97.8; O2SAT 100
--- NOTE | 2024-12-06 08:46 | DVH ---
Exam: CT CT AB PEL WO CON-NO ORAL OR IV History: Intractable abdominal pain Comparison Study: CT CT ABD PELVIS W CON-ORAL IV on DOS: 11/01/24, CT CT AB PEL WO CON-NO ORAL OR IV on DOS: 10/19/24, CT CT AB PEL WITH IV CON ONLY on DOS: 10/09/24, CT CT AB PEL WITH IV CON ONLY on DOS: 09/26/24, CT CT AB PEL WO CON-NO ORAL OR IV on DOS: 07/08/24 Technique: Multidetector spiral CT of the abdomen was performed from lung bases to pubic symphysis. I maging was performed without IV contrast. Axial, coronal and sagittal multiplanar reformats were obta ined from the axial data set by the technologist. Radiation Dose : 1. Abdomen/Pelvis: CTDIvol 4.98 mGy, DLP 261.01 mGy*cm. Findings: Evaluation of solid organs is limited due to lack of intravenous contrast use. Lung Bases: No acute or significant lung base finding. Normal heart size. No pleural or pericardial effusion. Liver: The liver is normal in size. No focal lesions. Gallbladder and Biliary Tree: Gallbladder is unremarkable. Common bile duct is prominent measuring 1. 4 cm, unchanged. Spleen: Unremarkable Pancreas: Prominent coarse calcifications in the region of the pancreatic body are grossly unchanged and may represent change from chronic pancreatitis. Nonspecific soft-tissue fullness in the region of the pancreatic body and head possibly representing a pancreatic mass better delineated on with IV co ntrast exam. Adrenal Glands: Unremarkable Kidneys: Kidneys are grossly normal without calculi or hydronephrosis. Bladder: Grossly unremarkable for degree of distention. Bowel: The stomach is grossly normal in appearance. Large volume colonic stool. The appendix is not v isualized; however, no secondary findings of acute appendicitis identified. Ascites: Absent Lymphadenopathy: No mesenteric, retroperitoneal or periportal lymphadenopathy. Abdominal Wall and Mesentery: Unremarkable. Vasculature: The visualized abdominal aorta is normal in size and caliber. There is extensive athero sclerotic calcification of the aorta and its branches. Evaluation of abdominal and pelvic vessels is limited due to lack of intravenous contrast. Pelvic Organs: Unremarkable Musculoskeletal: No aggressive focal bony lesions, acute fractures or dislocation. IMPRESSION: Prominent coarse calcifications in the region of the pancreatic body are grossly unchanged and may re present change from chronic pancreatitis. Nonspecific soft-tissue fullness in the region of the pancreatic body and head possibly representing a pancreatic mass better delineated on with IV contrast exam. Large volume colonic stool. Unchanged prominence of the common bile duct measuring 1.4 cm. Overall, findings may be better evaluated with MRI of the abdomen, pancreatic mass protocol. Radiation optimization: All CT scans at this facility use at least one of these dose optimization tobi hniques: automated exposure control mA and/or kV adjustment per patient size (includes targeted exam s where dose is matched to clinical indication) or iterative reconstruction.
[2024-12-06] MEDS: PANTOPRAZOLE 40 MG/10 ML VIAL INJ IV SCH (08:52)
[2024-12-06] MEDS: ENOXAPARIN SOD 40 MG/0.4 ML SYRINGE SC SCH (08:52)
[2024-12-06 13:21] VITALS: BP 97/78; PULSE 76; RESP 18; TEMP 97.8; O2SAT 99
[2024-12-06] MEDS: HYDROcodone-ACET 10/325MG TAB PO ONE (13:58)
[2024-12-06 17:06] VITALS: BP 106/82; PULSE 81; RESP 14; TEMP 98.1; O2SAT 96
--- NOTE | 2024-12-06 17:59 | DVHPN2 ---
Subjective c/o pain lt upper quadrant/then states this is chronic pain since his whipples/asking for iv pain med/no nausea or vomiting Changes from previous H/P or p: No Changes Objective Vitals Vital Signs Date Time Temp Pulse Resp B/P (MAP) Pulse Ox O2 Delivery O2 Flow Rate FiO2 12/06/24 17:06 98.1 81 14 106/82 (90) 96 98.1 12/05/24 23:24 Room Air* 0 21 General Appearance: Alert, Oriented X3, Cooperative, No acute distress Lungs: Clear to auscultation, Normal air movement Cardiovascular: Regular rate, Normal S1, Normal S2, No murmurs Abdomen: Normal bowel sounds, Soft, No tenderness, No hepatospenomegaly, No masses Extremities: No edema Neuro: Normal gait, Normal speech, Strength at 5/5 X4 ext, Normal tone, S ensation intact, Cranial nerves 3-12 NL Psych/Mental Status: Mental status NL, Mood NL Medications Current Medications Medications Dose Ordered Sig/Desean Route Start Time Stop Time Status Last Admin Dose Admin Acetaminophen 500 mg Q4HPRN PRN PO 12/05/24 21:00 Pantoprazole Sodium 40 mg DAILY IV 12/06/24 10:00 12/06/24 08:52 40 MG Enoxaparin Sodium 40 mg DAILY SC 12/06/24 10:00 12/06/24 08:52 40 MG Morphine Sulfate 2 mg Q4HPRN PRN IV 12/06/24 14:45 12/06/24 15:23 2 MG Acetaminophen/ Hydrocodone Bitart 1 tab Q6HP PRN PO 12/06/24 14:45 Laboratory Results Laboratory Tests 12/06/24 03:29 Chemistry Test 12/05/24 19:02 12/06/24 03:29 Albumin 4.0 g/dL (3.2-4.8) 3.8 g/dL (3.2-4.8) Calcium Level 9.4 mg/dL (8.7-10.4) 9.3 mg/dL (8.7-10.4) Magnesium Level 2.1 mg/dL (1.6-2.6) Total Protein 6.9 g/dL (5.7-8.2) 6.6 g/dL (5.7-8.2) Coagulation Test 12/05/24 19:02 Prothrombin Time 11.4 sec (9.3-11.8) Prothrombin Time INR 1.08 (0.9-1.15) Activated Partial Thromboplast Time 34.2 SEC (24.5-34.5) Lipid panel Test 12/05/24 19:02 Lipase 33 U/L (12-53) LFT Test 12/05/24 19:02 12/06/24 03:29 Alanine Aminotransferase (ALT) 16 U/L (7-40) 13 U/L (7-40) Alkaline Phosphatase 161 U/L (46-116) H 140 U/L (46-116) H Aspartate Amino Transferase (AST) 23 U/L (13-40) 17 U/L (13-40) Total Bilirubin 0.2 mg/dL (0.2-1.0) 0.2 mg/dL (0.2-1.0) HgA1c, TSH Test 12/05/24 19:02 Thyroid Stimulating Hormone (TSH) 0.56 uIU/mL (0.55-4.78) Urinalysis Test 12/05/24 18:43 Urine Color Yellow (Yellow) Urine Clarity Clear (Clear) Urine pH 6.0 (5.0-9.0) Urine Specific [place] 1.036 (1.001-1.035) Urine Protein Trace (Negative) H Urine Ketones Trace (Negative) Urine Blood Negative /uL (Negative) Urine Nitrite Negative (Negative) Urine Bilirubin Negative (Negative) Urine Urobilinogen 2 mg/dL (Negative) H Urine Leukocyte Esterase Negative /uL (Negative) Urine RBC 5 /hpf (0 - 3) Urine Microscopic WBC 1 /HPF (0-3) Urine Squamous Epithelial Cells None seen /hpf (<5) Urine Bacteria None seen /hpf (None Seen) Urine Mucus Few (None Seen) Urine Glucose Normal mg/dL (Normal) Assessment/Plan Assessment/Plan chronic abdominal pain h/o whipples- not clear if was done for neoplasm or pancreatic stone- pt not clear/request records from [facility] chronic pancreatitis chronic abdominal pain from above chronic biliary stricture postop elevated ca19-9 consult gi ambulatory status Plan discussed with: Patient, Other My Orders Orders - KIMMIE BAKNS MD Procedure Category Date Status Time Morphine Sulfate PHA 12/06/24 In Process Injection 14:45 Hydrocodone-Acet PHA 12/06/24 In Process 10/325mg Tab ([place] 14:45 Date of Service: Dec 06, 2024 Billing Provider: KIMMIE BANKS MD Common Visit Codes: [id number] INP/OBS CARE(MOD) KMIMIE BANKS MD Dec 06, 2024 17:59
[2024-12-06] MEDS: HYDROcodone-ACET 10/325MG TAB PO PRN (18:01)
[2024-12-06 18:12] VITALS: PULSE 80; RESP 18; O2SAT 96
[2024-12-06 20:00] VITALS: PULSE 72; PULSE 73; RESP 18
[2024-12-06 21:00] VITALS: BP 115/85; PULSE 73; RESP 18; TEMP 97.8; O2SAT 97
[2024-12-07] VITALS (7 sets, daily range): BP systolic 100–108; BP diastolic 59–80; PULSE 72–97; RESP 16–22; TEMP 36.8; O2SAT 91–100
[2024-12-07] MEDS: KETOROLAC TROMETH 30 MG/ML 1ML VIAL IV ONE (03:29)
[2024-12-07] MEDS: LACTULOSE 20Gm/30ML SOLN PO SCH (12:51)
[2024-12-07] MEDS ORDERED: POLYETHYLENE GLYCOL 17 GM PWDR PO PRN (13:00)
--- NOTE | 2024-12-07 13:05 | DVHINCON2 ---
GI Consult Consult Note GI consult note Date of Consultation: 12/07/2024 Chief Complaint: Chronic pancreatitis/history of Whipple's/elevated CA 19-9 Referring Physician: Dr. Bhanu Marie H&P: 54-year-old male with past medical history of pancreatic head mass with biliary dilation, status post partial Whipple procedure, puestow procedure . Also history of chronic pancreatitis and alcohol use admitted with complains of epigastric pain radiating to his back eight on 0-10 pain intensity started three days ago. Patient follows up at pain management. Nausea and vomiting, none at this time. No fevers or chills. Last bowel movement 7-8 days ago, has history of constipation and Colace is not helping him. Patient during last hospitalization was transferred to [place] and per patient was treated with IV antibiotics and discharged after a few days in the hospital. Past Medical History: Anxiety, chronic pancreatitis Past Surgical History: Hernia repair, post up biliary dysfunction Social History: Smoker: Cigarettes Alcohol: Sober Drugs: Denies Drug Use Lives In: Home Family History: Noncontributory Review of Systems: Constitutional: no fever, chill, weight loss HEENT: no eye pain, no hearing loss, no oral lesion, no scleral icterus Heart: no chest pain, no chest pressure Lung: no cough, no dyspnea with exertion Abdomen: see HPI Physical exam: General: NAD, AAOX3 Chest: lung knox clear to auscultation Heart: RRR, no murmur Abdomen: non-distended, + epigastric tenderness to palpation, +BS Labs: Labs Test 12/06/24 03:29 12/05/24 20:03 12/05/24 19:02 12/05/24 18:43 Range/Units White Blood Count 5.9 4.4-10.8 10^3/uL Red Blood Count 3.80 L 4.5-5.90 10^6/uL Hemoglobin 11.8 L 13.5-17.5 g/dL Hematocrit 35.3 L 41.0-53.0 % Mean Corpuscular Volume 93.0 80.0-100.0 fL Mean Corpuscular Hemoglobin 31.2 28.0-32.0 pg Mean Corpuscular Hemoglobin Concent 33.5 32.0-36.0 g/dL Red Cell Distribution Width 16.3 H 11.8-14.3 % Platelet Count 319 140-450 10^3/uL Mean Platelet Volume 6.9 6.9-10.8 fL Neutrophils (%) (Auto) 51.0 37.0-80.0 % Lymphocytes (%) (Auto) 37.4 10.0-50.0 % Monocytes (%) (Auto) 8.5 0.0-12.0 % Eosinophils (%) (Auto) 2.4 0.0-7.0 % Basophils (%) (Auto) 0.7 0.0-2.0 % Neutrophils # (Auto) 3.0 1.6-8.6 10 ^3/uL Lymphocytes # (Auto) 2.2 0.4-5.4 10 ^3/uL Monocytes # (Auto) 0.5 0-1.3 10 ^3/uL Eosinophils # (Auto) 0.1 0-0.8 10 ^3/uL Basophils # (Auto) 0 0-0.2 10 ^3/uL Nucleated Red Blood Cells 0.0 % Sodium Level 138 136-145 mmol/L Potassium Level 3.9 3.5-5.1 mmol/L Chloride Level 104 98-107 mmol/L Carbon Dioxide Level 28 20-31 mmol/L Anion Gap 6 5-15 Blood Urea Nitrogen 11 9-23 mg/dL Creatinine 0.63 L 0.700-1.30 mg/dL Glomerular Filtration Rate Calc 112 >90 mL/min BUN/Creatinine Ratio 17.5 10.0-20.0 Serum Glucose 113 H 74-106 mg/dL Calcium Level 9.3 8.7-10.4 mg/dL Total Bilirubin 0.2 0.2-1.0 mg/dL Aspartate Amino Transferase (AST) 17 13-40 U/L Alanine Aminotransferase (ALT) 13 7-40 U/L Alkaline Phosphatase 140 H 46-116 U/L Total Protein 6.6 5.7-8.2 g/dL Albumin 3.8 3.2-4.8 g/dL Troponin I High Sensitivity < 3 L </=54 ng/L Prothrombin Time 11.4 9.3-11.8 sec Prothrombin Time INR 1.08 0.9-1.15 Activated Partial Thromboplast Time 34.2 24.5-34.5 SEC Magnesium Level 2.1 1.6-2.6 mg/dL Amylase Level 59 30-118 U/L Lipase 33 12-53 U/L Vitamin B12 Level 865 211-911 pg/mL Vitamin D 25-Hydroxy 61.5 30.0-100 ng/mL Thyroid Stimulating Hormone (TSH) 0.56 0.55-4.78 uIU/mL Urine Color Yellow Yellow Urine Clarity Clear Clear Urine pH 6.0 5.0-9.0 Urine Specific [place] 1.036 H 1.001-1.035 Urine Protein Trace H Negative Urine Ketones Trace Negative Urine Blood Negative Negative /uL Urine Nitrite Negative Negative Urine Bilirubin Negative Negative Urine Urobilinogen 2 H Negative mg/dL Urine Leukocyte Esterase Negative Negative /uL Urine RBC 5 0 - 3 /hpf Urine Microscopic WBC 1 0-3 /HPF Urine Squamous Epithelial Cells None seen <5 /hpf Urine Bacteria None seen None Seen /hpf Urine Mucus Few None Seen Urine Glucose Normal Normal mg/dL Urine Opiates Screen Pos NEGATIVE Urine Fentanyl Screen Neg NEGATIVE Urine Barbiturates Screen Neg NEGATIVE Urine Phencyclidine Screen Neg NEGATIVE Urine Amphetamines Screen Neg NEGATIVE Urine Benzodiazepines Screen Neg NEGATIVE Urine Cocaine Screen Neg NEGATIVE Urine Cannabinoids Screen Neg NEGATIVE Imaging: CT abdomen pelvis IMPRESSION: Prominent coarse calcifications in the region of the pancreatic body are grossly unchanged and may represent change from chronic pancreatitis. Nonspecific soft-tissue fullness in the region of the pancreatic body and head possibly representing a pancreatic mass better delineated on with IV contrast exam. Large volume colonic stool. Unchanged prominence of the common bile duct measuring 1.4 cm. Overall, findings may be better evaluated with MRI of the abdomen, pancreatic mass protocol. Assessment: Intractable abdominal pain Chronic pancreatitis Pancreatic mass Constipation Plan: -discussed with Dr. Thomas Colsiobhan suppositories per patient request MiraLax MRI abdomen pancreatic protocol which was done at [place], obtain records of this Pain management per hospital team We will continue to monitor patient Plan discussed with patient and RN Thank you for this consult Date of Service: Dec 07, 2024 Billing Provider: TIGRE BOWMAN Common Visit Codes: CONSULT ONLY Consultation Codes: [id number] CONSULT <60MIN TIGRE BOWMAN Dec 07, 2024 13:04
[2024-12-07] MEDS: BISACODYL 10 MG RECT SUPP PR ONE (13:35)
[2024-12-07] MEDS ORDERED: DICY10CA PO (16:43)
[2024-12-07] MEDS ORDERED: ZOFR4T PO (16:43)
--- NOTE | 2024-12-07 16:44 | DVHDS2 ---
Discharge Summary Date of Admission Dec 05, 2024 at 21:00 Date of Discharge: Dec 07, 2024 Labs/Diagnostic Data: Laboratory Results Test 12/06/24 03:29 12/05/24 20:03 12/05/24 19:02 12/05/24 18:43 White Blood Count 5.9 10^3/uL (4.4-10.8) Red Blood Count 3.80 10^6/uL (4.5-5.90) Hemoglobin 11.8 g/dL (13.5-17.5) Hematocrit 35.3 % (41.0-53.0) Mean Corpuscular Volume 93.0 fL (80.0-100.0) Mean Corpuscular Hemoglobin 31.2 pg (28.0-32.0) Mean Corpuscular Hemoglobin Concent 33.5 g/dL (32.0-36.0) Red Cell Distribution Width 16.3 % (11.8-14.3) Platelet Count 319 10^3/uL (140-450) Mean Platelet Volume 6.9 fL (6.9-10.8) Neutrophils (%) (Auto) 51.0 % (37.0-80.0) Lymphocytes (%) (Auto) 37.4 % (10.0-50.0) Monocytes (%) (Auto) 8.5 % (0.0-12.0) Eosinophils (%) (Auto) 2.4 % (0.0-7.0) Basophils (%) (Auto) 0.7 % (0.0-2.0) Neutrophils # (Auto) 3.0 10 ^3/uL (1.6-8.6) Lymphocytes # (Auto) 2.2 10 ^3/uL (0.4-5.4) Monocytes # (Auto) 0.5 10 ^3/uL (0-1.3) Eosinophils # (Auto) 0.1 10 ^3/uL (0-0.8) Basophils # (Auto) 0 10 ^3/uL (0-0.2) Nucleated Red Blood Cells 0.0 % Sodium Level 138 mmol/L (136-145) Potassium Level 3.9 mmol/L (3.5-5.1) Chloride Level 104 mmol/L (98-107) Carbon Dioxide Level 28 mmol/L (20-31) Anion Gap 6 (5-15) Blood Urea Nitrogen 11 mg/dL (9-23) Creatinine 0.63 mg/dL (0.700-1.30) Glomerular Filtration Rate Calc 112 mL/min (>90) BUN/Creatinine Ratio 17.5 (10.0-20.0) Serum Glucose 113 mg/dL (74-106) Calcium Level 9.3 mg/dL (8.7-10.4) Total Bilirubin 0.2 mg/dL (0.2-1.0) Aspartate Amino Transferase (AST) 17 U/L (13-40) Alanine Aminotransferase (ALT) 13 U/L (7-40) Alkaline Phosphatase 140 U/L (46-116) Total Protein 6.6 g/dL (5.7-8.2) Albumin 3.8 g/dL (3.2-4.8) Troponin I High Sensitivity < 3 ng/L (</=54) Prothrombin Time 11.4 sec (9.3-11.8) Prothrombin Time INR 1.08 (0.9-1.15) Activated Partial Thromboplast Time 34.2 SEC (24.5-34.5) Magnesium Level 2.1 mg/dL (1.6-2.6) Amylase Level 59 U/L (30-118) Lipase 33 U/L (12-53) Vitamin B12 Level 865 pg/mL (211-911) Vitamin D 25-Hydroxy 61.5 ng/mL (30.0-100) Thyroid Stimulating Hormone (TSH) 0.56 uIU/mL (0.55-4.78) Urine Color Yellow (Yellow) Urine Clarity Clear (Clear) Urine pH 6.0 (5.0-9.0) Urine Specific [place] 1.036 (1.001-1.035) Urine Protein Trace (Negative) Urine Ketones Trace (Negative) Urine Blood Negative /uL (Negative) Urine Nitrite Negative (Negative) Urine Bilirubin Negative (Negative) Urine Urobilinogen 2 mg/dL (Negative) Urine Leukocyte Esterase Negative /uL (Negative) Urine RBC 5 /hpf (0 - 3) Urine Microscopic WBC 1 /HPF (0-3) Urine Squamous Epithelial Cells None seen /hpf (<5) Urine Bacteria None seen /hpf (None Seen) Urine Mucus Few (None Seen) Urine Glucose Normal mg/dL (Normal) Urine Opiates Screen Pos (NEGATIVE) Urine Fentanyl Screen Neg (NEGATIVE) Urine Barbiturates Screen Neg (NEGATIVE) Urine Phencyclidine Screen Neg (NEGATIVE) Urine Amphetamines Screen Neg (NEGATIVE) Urine Benzodiazepines Screen Neg (NEGATIVE) Urine Cocaine Screen Neg (NEGATIVE) Urine Cannabinoids Screen Neg (NEGATIVE) Other Laboratory Tests 12/06/24 03:29 Brief Hx & Hospital Course: 54-year-old male with past medical history of recently diagnosed pancreatic head mass (3.1 x 3.2 cm) with biliary dilation, history of partial Whipple procedure, Puestow procedure with modified sprey. Post-Operative Biliary Dysfunction, Chronic pancreatitis and alcohol use who presented to the ER with a chief complaint of epigastric radiating to the back, 8/10 in intensity, started 2 days back and has been constant, last bowel movement earlier this morning, reports nausea and chills, denies vomiting or fever. Patient was recently seen in his hospital for similar reasons and was transferred to [place] where he was treated with IV antibiotics and was discharged in a couple of days per the patient. Patient is currently asking for pain medications and is refusing abdominal examination. CT abdomen 11/01 showing Heterogeneous lesion/ mass in the pancreatic head region that is hypoenhancing measuring 3.1 x 3.2 cm concerning for potential pancreatic mass /neoplasm. Recommend GI and surgical consultation for further evaluation. Dilatation of the common bile duct, intrahepatic ducts which is new from the previous examination from 03/18/2024 with abrupt tapering near the pancreatic head / periampullary region, also raising concern for potential pancreatic mass /neoplasm. Pancreatic calcifications consistent with chronic pancreatitis changes. past medica/surgical l history of recently diagnosed pancreatic head mass (3.1 x 3.2 cm) with biliary dilation, history of partial Whipple procedure, Puestow procedure with modified sprey. Post-Operative Biliary Dysfunction, Chronic pancreatitis and alcohol use 12/07: Patient is continuing to improve. Chronic pancreatitis. Less than patient was admitted had to be transferred for new mass in head of pancreas which patient is primary Surgical Oncology Dr. ríos says is pseudocyst. Patient tolerating p.o. pain controlled. Patient asking to go home. Patient vital signs stable. Patient is stable for discharge as per plan below. Patient denies any suicidal ideations Diagnosis: Acute on chronic pancreatitis Intractable abdominal pain P.o. intolerance Intractable nausea Anemia likely normocytic History of pancreatic mass History of chronic pancreatitis History of partial Whipple procedure (Puestow procedure with modified sprey) head of pancreas pseudocyst Plan: -Patient has analgesia at home. Okay to take home meds for pain control -Take Bentyl 10 mg up to 3 times daily as needed for abdominal cramps -For antiemetic/nausea medication take Zofran ODT 4 mg tablet oral dissolvable sublingual up to 3 times daily as needed for nausea. - continue other home medications - Recommend soft/pureed diet to ease transition through regions of intestine causing pain, recommend low-fat diet. -follow up with PCP to review discharge Condition at Discharge: Fair Final Diagnosis/Problems List Acute on chronic pancreatitis Intractable abdominal pain P.o. intolerance Intractable nausea Anemia likely normocytic History of pancreatic mass History of chronic pancreatitis History of partial Whipple procedure (Puestow procedure with modified sprey) head of pancreas pseudocyst Discharge Disposition: Home Discharge Instruct/Medications Scheduled Pancreatic Enzymes (Creon), 12,000 UNT PO TID, (Reported) Scheduled PRN Hydrocodone-Acetaminophen (Hydrocodone/Acetaminophen 10-325 mg), 1 TAB PO Q4HP PRN for PAIN SCALE 7 THRU 10, (Reported) Miscellaneous Medications Nicotine (Nicotine Transdermal Syst), TOP, (Reported) Discharge Statement: "Patient was advised to return to the ER or call 911 if any headaches, dizziness, shortness of breath, chest pain, abdominal pain, bleeding, fevers, or worsening of medical condition. Patient was counseled about treatment plan, medications, possible side effects, patientverbalized understanding. All questions were answered to the best of my ability. This discharge took greater then 30 minutes in planning, reviewing documentation, counseling the patient, and discussing with other team members." ASSESSMENT ASSESSMENT Assessment Date of Service: Dec 07, 2024 Billing Provider: ARMIN PORRAS MD Common Visit Codes: 47988-[id number] DISCH DAY >30min ARMIN PORRAS MD Dec 07, 2024 16:44
[2024-12-07] MEDS: LACTATED RINGER'S 500 ML IV ONE (16:51)
[2024-12-07] MEDS: MORPHINE SULFATE INJ 2 MG/ml SYRG IV STA (16:52)
[2024-12-07] MEDS ORDERED: LACTULOSE 20Gm/30ML SOLN PO SCH (22:00)
== END 2024-12-07 17:15 | disposition home or self-care (01) | DRG 438 ==
LOC: ER 17:54 → OVERFLOW 21:00 → TELE-WESTW 12-06 18:15
PROVIDERS: ADMIT Student in an Organized Health Care Education/Training Program; ATTEND Student in an Organized Health Care Education/Training Program
DX: K85.90 Acute pancreatitis without necrosis or infection, unspecified (principal); K83.1 Obstruction of bile duct; D64.9 Anemia, unspecified; K86.1 Other chronic pancreatitis; F41.9 Anxiety disorder, unspecified; F17.210 Nicotine dependence, cigarettes, uncomplicated; G89.29 Other chronic pain; K59.00 Constipation, unspecified; R63.6 Underweight; Z79.899 Other long term (current) drug therapy; Z90.411 Acquired partial absence of pancreas
CPT/HCPCS: 36415; 74176; 80053; 80307; 81001; 82150; 82306; 82607; 83690; 83735; 84443; 84484; 85025; 85610; 85730; 96361; 96372; 96374; 96375; G0378; J1885; J2470

== ENCOUNTER 2024-12-22 19:48 | Emergency (ER) | payer MEDICAID ==
[~2024-12-22] VITALS: Ht 167.6 cm; Wt 45.4 kg
[~2024-12-22 19:48] MED LIST changes: +DICY10CA PO; +ZOFR4T PO
--- NOTE | 2024-12-22 20:55 | ED.PDOC ---
GI ASSESSMENT HPI Comments This is a 54-year-old male who presented to the ER with a chief complaint of epigastric radiating to the right back, 9/10 in intensity, started earler today and has been constant, last bowel movement earlier this morning, reports nausea and 1 episode of vomiting, along with chills, denies fever. He took his Berkeley which did not control the pain and decided to come to the ER. Patient has been seen here in the last 2 months for similar reasons, and was transferred to [place] where he was treated with IV antibiotics and was discharged in a couple of days per the patient. 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 ríos past medical/surgical l history of recently diagnosed pancreatic head mass (3.1 x 3.2 cm) with biliary dilation, history of partial Whipple procedure, Pu[place]ow procedure with modified sprey. Post-Operative Biliary Dysfunction, Chronic pancreatitis and alcohol use PCP [facility] medications: Berkeley and Percocet, Creon TID Patient seen and examined. Reports that he has a appointment with palliative care on 12/24, CT abdomen shows Masslike soft tissue thickening involving the pancreatic head, body, and neck with calcifications, grossly stable in appearance from previous exam. Evaluation is extremely limited due to lack of IV contrast. Further workup is recommended. Please see contrast-enhanced CT report from November 01, 2024 for better details/recommendations. Mild upstream pancreatic ductal dilatation with periductal calcifications a few foci of intraluminal ductal air. Intraluminal ductal air raises possibility of a fistula. The findings in part relate to chronic pancreatitis. Mild intrahepatic and extrahepatic biliary ductal dilatation secondary to extrinsic compression of the common duct by aforementioned pancreatic calcified lesion. Attestation note: Dr. Bourne: I was the supervising attending for this ED encounter. Please see the resident's notes. I was available for questions and consultations. Differential diagnosis: DDX include but not limited to diverticulitis, colitis, gastroenteritis, acute abdomen, SBO, enteritis, constipation, volvulus, appendicitis, Gallbladder disease, choledocolithiasis, ascending cholangitis, pancreatitis, intraAbdominal mass/neoplasm, hepatitis, UTI, pylonephritis, kidney stone, aneurysm, dissection, Inflammatory bowel disease, gastroparesis, ischemic bowel. MDM: MDM: patient presented with the above HPI.--abdominal pain recurrent----workup was initiated. patient was found with the above mentioned diagnosis. the following medications were ordered: please refer to order lists of meds and tests obtained by myself Dr. Bourne. Patient ED course and VS have been stabilized. Patient has been reassessed in the ED and remained in a stable condition. Pertinent incidental findings were discussed with the patient and/or family. Patient/family voices understanding and is agreeable with plan. Patient has been observed in the ED adequate length of time to insure improvement/stability. Escalation of care considered: Consideration of escalation to observation or admission Patient has history of chronic pain on pain management. Findings on CT scan are chronic for the patient. Patient was DISCHARGED home in a stable condition. All the reports of any imaging studies that were ordered by myself were reviewed by myself. Chief Complaint: Abdominal Pain Time Seen by MD: 20:34 Primary Care Provider: ARNODL Reviewed Notes: Nurses Notes Allergies: Coded Allergies: NO KNOWN ALLERGIES (Unverified , 02/16/24) Home Meds Active Scripts Lactulose (Lactulose) 10 Gm/15 Ml Molly, 10 GM PO DAILYP PRN for 10 Days, #10 ML 0 Refills Prov:BERNIE ALEMAN RESIDENT 12/23/24 Ondansetron Odt 4MG Tab (ZOFRAN PO) 4 Mg Tb, 4 MG PO TIDP PRN for 7 Days, #21 TAB 0 Refills ODT TAB-DISSOLVE IN MOUTH, THEN SWALLOW Prov:ARMIN PORRAS MD 12/07/24 Dicyclomine Hcl (BENTYL CAPSULE) 10 Mg Cp, 1 CAP PO TID PRN, #30 CAP 0 Refills Prov:ARMIN PORRAS MD 12/07/24 Reported Medications Nicotine (Nicotine Transdermal Syst) 21 Mg/24 Hr Dis, TOP 11/01/24 Hydrocodone-Acetaminophen (Hydrocodone/Acetaminophen 10-325 mg) 1 Tab Tab, 1 TAB PO Q4HP PRN for PAIN SCALE 7 THRU 10 11/01/24 Pancreatic Enzymes (Creon) 12,000 Unt Cap, 18182 UNT PO TID, CAP 11/01/24 Information Source: Patient Mode of Arrival: Ambulatory Timing: Hours Duration: Since onset Quality: Aching Vomitus: Food Particles Severity: Moderate Recent Hx of: Narcotic Use Pain Location: Epigastric, RUQ Associated sign and symptoms: Nausea, Vomiting Past Medical History PAST MEDICAL HISTORY: Anxiety Surgical History: Hernia Repair Family History Family History: Reviewed,noncontributory to illness, Unknown Social History Smoker: Cigarettes Alcohol: Sober Drugs: Denies Drug Use Lives In: Home Physical Exam General Appearance: Mild Distress HEENT: Cornea (L), Cornea (R) Neck: NOT DONE Respiratory: No Accessory Muscle Use, No Respiratory Distress, Normal Breath Sounds Cardiovascular: Regular Rate/Rhythm Breast Exam: Deferred Gastrointestinal: Diffuse, Epigastric, Normal Bowel Sounds, Soft, Tenderness Genitalia: Deferred Pelvic: Deferred Rectal: Deferred Extremities: Non-tender, No pedal edema Neurologic: NOT DONE Cerebellar Function: NOT DONE Reflexes: NOT DONE Skin: Dry Lymphatic: NOT DONE Was a procedure done? Was a procedure done?: No GI differential Dx Differential Diagnosis: Constipation, Gastritis/PUD, Pancreatitis X-Ray, Labs, Meds, VS Vital Signs Date Time Temp Pulse Resp B/P (MAP) Pulse Ox O2 Delivery O2 Flow Rate FiO2 12/23/24 00:42 98.1 59 17 99/68 (78) 99 98.1 12/22/24 19:57 97.5 89 20 112/73 99 97.5 Lab Test 12/22/24 21:16 Range/Units White Blood Count 7.0 4.4-10.8 10^3/uL Red Blood Count 3.86 L 4.5-5.90 10^6/uL Hemoglobin 12.4 L 13.5-17.5 g/dL Hematocrit 36.5 L 41.0-53.0 % Mean Corpuscular Volume 94.5 80.0-100.0 fL Mean Corpuscular Hemoglobin 32.1 H 28.0-32.0 pg Mean Corpuscular Hemoglobin Concent 34.0 32.0-36.0 g/dL Red Cell Distribution Width 17.3 H 11.8-14.3 % Platelet Count 377 140-450 10^3/uL Mean Platelet Volume 7.0 6.9-10.8 fL Neutrophils (%) (Auto) 60.1 37.0-80.0 % Lymphocytes (%) (Auto) 29.1 10.0-50.0 % Monocytes (%) (Auto) 7.8 0.0-12.0 % Eosinophils (%) (Auto) 2.3 0.0-7.0 % Basophils (%) (Auto) 0.7 0.0-2.0 % Neutrophils # (Auto) 4.2 1.6-8.6 10 ^3/uL Lymphocytes # (Auto) 2.1 0.4-5.4 10 ^3/uL Monocytes # (Auto) 0.6 0-1.3 10 ^3/uL Eosinophils # (Auto) 0.2 0-0.8 10 ^3/uL Basophils # (Auto) 0 0-0.2 10 ^3/uL Nucleated Red Blood Cells 0.0 % Sodium Level 134 L 136-145 mmol/L Potassium Level 4.3 3.5-5.1 mmol/L Chloride Level 100 98-107 mmol/L Carbon Dioxide Level 28 20-31 mmol/L Anion Gap 6 5-15 Blood Urea Nitrogen 9 9-23 mg/dL Creatinine 0.62 L 0.700-1.30 mg/dL Glomerular Filtration Rate Calc 113 >90 mL/min BUN/Creatinine Ratio 14.5 10.0-20.0 Serum Glucose 109 H 74-106 mg/dL Lactic Acid Level 0.9 0.4-2.0 mmol/L Calcium Level 9.5 8.7-10.4 mg/dL Total Bilirubin 0.3 0.2-1.0 mg/dL Aspartate Amino Transferase (AST) 19 13-40 U/L Alanine Aminotransferase (ALT) 14 7-40 U/L Alkaline Phosphatase 127 H 46-116 U/L Troponin I High Sensitivity < 3 L </=54 ng/L Total Protein 7.4 5.7-8.2 g/dL Albumin 4.2 3.2-4.8 g/dL Lipase 45 12-53 U/L Current Medications Medications (Trade) Dose Ordered Sig/Desean Route Start Time Stop Time Status Last Admin Acetaminophen/ Hydrocodone Bitart (Berkeley 5/325MG Tab) 1 tab ONCE ONCE PO 12/22/24 22:30 12/22/24 22:31 DC 12/23/24 00:54 Ondansetron HCl (Zofran) 4 mg ONCE ONCE IV 12/23/24 00:00 12/23/24 00:01 DC 12/23/24 00:54 Ketorolac Tromethamine (Toradol Injection) 30 mg ONCE ONCE IV 12/23/24 00:00 12/23/24 00:01 DC 12/23/24 00:54 X-Ray, Labs, Meds, VS Comment CT abdomen shows Masslike soft tissue thickening involving the pancreatic head, body, and neck with calcifications, grossly stable in appearance from previous exam. Evaluation is extremely limited due to lack of IV contrast. Further workup is recommended. Please see contrast-enhanced CT report from November 01, 2024 for better details/recommendations. Mild upstream pancreatic ductal dilatation with periductal calcifications a few foci of intraluminal ductal air. Intraluminal ductal air raises possibility of a fistula. The findings in part relate to chronic pancreatitis. Mild intrahepatic and extrahepatic biliary ductal dilatation secondary to extrinsic compression of the common duct by aforementioned pancreatic calcified lesion. Images Reviewed?: Images reviewed and evaluated by me Time of 1ST Reevaluation: 01:00 Reevaluation 1ST: Improved (Pain has improved) Consultation: PCP Patient Education/Counseling: Diagnosis, Treatment, Prognosis, Need For Follow Up Family Education/Counseling: No Family Present SEPSIS Sepsis Screen Date sepsis recognized/suspect: Dec 22, 2024 Time Sepsis recognized/suspect: 1999 Recent Procedure: No On Antibiotic Therapy: No Respiratory Rate >20: No Heart Rate >90: No Temp<36 C (96.8 F) or >38.3 C: No SBP <90 or MAP <65 mmHG: No New Acute Mental Status Change: No Is the patient on CPAP, BIPAP,: No Physician Orders Electrocardigram (12/22/24 20:51) Ct Ab Pel Wo Con-No Oral Or Iv (12/22/24 20:51) Vital Signs Date Time Temp Pulse Resp B/P (MAP) Pulse Ox O2 Delivery O2 Flow Rate FiO2 12/23/24 00:42 98.1 59 17 99/68 (78) 99 98.1 12/22/24 19:57 97.5 89 20 112/73 99 97.5 Laboratory Tests Test 12/22/24 21:16 Lactic Acid Level 0.9 mmol/L (0.4-2.0) White Blood Count 7.0 10^3/uL (4.4-10.8) Medications Medications Dose Ordered Sig/Desean Route Start Time Stop Time Status Last Admin Dose Admin Acetaminophen/ Hydrocodone Bitart 1 tab ONCE ONCE PO 12/22/24 22:30 12/22/24 22:31 DC 12/23/24 00:54 Ketorolac Tromethamine 30 mg ONCE ONCE IV 12/23/24 00:00 12/23/24 00:01 DC 12/23/24 00:54 Ondansetron HCl 4 mg ONCE ONCE IV 12/23/24 00:00 12/23/24 00:01 DC 12/23/24 00:54 Departure 1 Departure Time of Disposition: 01:19 Impression: Primary Impression: Chronic pancreatitis Additional Impressions: Constipation Chronic abdominal pain Disposition: HOME / SELF CARE / HOMELESS Condition: Fair Additional Instructions: Additional instructions: Please read all instructions provided in this packet carefully. You MUST follow-up with your primary care/family doctor in 1 to 2 days. If you are unable to see your primary care/family doctor, please return to our emergency room for re-assessment and re-evaluation in 1 to 2 days. Return to the emergency room here in our facility or to the nearest ER [facility] if your symptoms change or worsen. CONSULTATIONS: you MUST Follow-up for consultation as soon as possible with: -- gastroenterology and general surgery in 1-2 days. Please call for appointment. You MUST call the consultants office yourself to make an appointment. You may need to arrange that through your insurance and/or your primary/family doctor. If you are unable to see the service loss control consultant in 1 to 2 days, you must return to our emergency room (or any other ER of your choice) for re-assessment and re-evaluation. Adequate fluid hydration. Although you have been discharged from the Emergency Department, this does not mean that you have a "clean bill of health". No definitive diagnosis for your symptoms has been made today. It is possible that you are in the process of developing a serious illness. This is why you must return to the ED without fail if any new or worsening symptoms develop. Follow up with the pain management. Below is a copy of your radiological report for follow up: [address] [address] Ph: [phone] DIAGNOSTIC IMAGING Diagnostic Imaging Report : [id number] Signed PATIENT: BC STERLING ACCT: [id number] UNIT: [id number] : 1970 LOC: ER ROOM / BED: / AGE / SEX: 54 / M ADM STATUS: REG ER SERVICE 50 ORDERING PHYSICIAN: BERNIE ALEMAN RESIDENT PROCEDURE(s): ABPL - CT AB PEL WO CON-NO ORAL OR IV REASON: hx of pancreatic mass, ?pancreatitis ORDER NUMBER(s): [id number], ACCESSION NUMBER(s): [id number] CLINICAL HISTORY: hx of pancreatic mass, pancreatitis TECHNIQUE: CT of the abdomen and pelvis was performed without IV contrast. This exam was performed according to our departmental dose optimization program. Up-to-date CT equipment and radiation dose reduction techniques are utilized as appropriate. CTDI 5 DLP 229 COMPARISON: CT CT AB PEL WO CON-NO ORAL OR IV on DOS: 12/06/24, CT CT ABD PELVIS W CON-ORAL IV on DOS: 11/01/24, CT CT AB PEL WO CON-NO ORAL OR IV on DOS: 10/19/24, CT CT AB PEL WITH IV CON ONLY on DOS: 10/09/24, CT CT AB PEL WITH IV CON ONLY on DOS: 09/26/24 FINDINGS: Abdomen/Pelvis: The spleen, adrenal glands, gallbladder, kidneys, liver, bladder, and prostate gland are grossly unremarkable. There is masslike soft tissue thickening the pancreatic head, body, and neck with associated calcifications, very poorly evaluated on this exam due to lack of IV contrast. There is mild upstream pancreatic ductal dilatation with peripancreatic calcifications few foci of ductal air. There is extrinsic comp ression of the main biliary duct resulting in mild biliary ductal dilatation in the common duct measuring up to 10 mm. The abdominal aorta is normal in course and caliber. There are wrhi-[id number]-ldxoewee atherosclerotic calcifications. There is no free intraperitoneal air or fluid. There is no enlarged abdominal pelvic lymph node. There is no bowel wall thickening or dilatation. The appendix is normal. Other: The imaged lower thorax is unremarkable. No acute osseous abnormality is evident. Impression: Evaluation on this study is limited due to lack of IV contrast, resulting in very difficult evaluation of known pancreatic lesion. Masslike soft tissue thickening involving the pancreatic head, body, and neck with calcifications, grossly stable in appearance from previous exam. Evaluation is extremely limited due to lack of IV contrast. Further workup is recommended. Please see contrast-enhanced CT report from November 01, 2024 for better details/recommendations. Mild upstream pancreatic ductal dilatation with periductal calcifications a few foci of intraluminal ductal air. Intraluminal ductal air raises possibility of a fistula. The findings in part relate to chronic pancreatitis. Mild intrahepatic and extrahepatic biliary ductal dilatation secondary to extrinsic compression of the common duct by aforementioned pancreatic calcified lesion. ATED BY: GURVINDER LEMUS MD DICTATED DATE/TIME: 12/22/242136 SIGNED BY: GURVINDER LEMUS MD SIGNED DATE/TIME: 12/22/242136 CC: e-Prescriptions Lactulose (Lactulose) 10 Gm/15 Ml Molly 10 GM PO DAILYP PRN for 10 Days, #10 ML 0 Refills Prov: BERNIE ALEMAN RESIDENT 12/23/24 Discharged With: Self Comments Continue Creon thrice daily Continue liquid diet, advanced to soft diet once pain resolves Continue lactulose once daily as needed for constipation Follow up with primary care physician within the next 3 days Follow up with director of clinical trials within the next 7 days Please return to ER in case of intractable abdominal pain, nausea or vomiting, fevers or chills or bloody vomiting or bloody stools Critical Care Note Critical Care Time?: No Stability Stability form required: No BERNIE ALEMAN RESIDENT Dec 22, 2024 20:55 CHRIS BOURNE DO Dec 23, 2024 01:28
--- NOTE | 2024-12-22 21:40 | DVH ---
CLINICAL HISTORY: hx of pancreatic mass, pancreatitis TECHNIQUE: CT of the abdomen and pelvis was performed without IV contrast. This exam was performed ac cording to our departmental dose optimization program. Up-to-date CT equipment and radiation dose red uction techniques are utilized as appropriate. CTDI 5 DLP 229 COMPARISON: CT CT AB PEL WO CON-NO ORAL OR IV on DOS: 12/06/24, CT CT ABD PELVIS W CON-ORAL IV on DO S: 11/01/24, CT CT AB PEL WO CON-NO ORAL OR IV on DOS: 10/19/24, CT CT AB PEL WITH IV CON ONLY on DOS: , CT CT AB PEL WITH IV CON ONLY on DOS: 09/26/24 FINDINGS: Abdomen/Pelvis: The spleen, adrenal glands, gallbladder, kidneys, liver, bladder, and prostate gland are grossly unre markable. There is masslike soft tissue thickening the pancreatic head, body, and neck with associated calcific ations, very poorly evaluated on this exam due to lack of IV contrast. There is mild upstream pancrea tic ductal dilatation with peripancreatic calcifications few foci of ductal air. There is extrinsic c ompression of the main biliary duct resulting in mild biliary ductal dilatation in the common duct me asuring up to 10 mm. The abdominal aorta is normal in course and caliber. There are paun-gb-cohizvhr atherosclerotic calci fications. There is no free intraperitoneal air or fluid. There is no enlarged abdominal pelvic lymph node. There is no bowel wall thickening or dilatation. The appendix is normal. Other: The imaged lower thorax is unremarkable. No acute osseous abnormality is evident. Impression: Evaluation on this study is limited due to lack of IV contrast, resulting in very difficult evaluatio n of known pancreatic lesion. Masslike soft tissue thickening involving the pancreatic head, body, and neck with calcifications, gr ossly stable in appearance from previous exam. Evaluation is extremely limited due to lack of IV cont rast. Further workup is recommended. Please see contrast-enhanced CT report from November 01, 2024 for better details/recommendations. Mild upstream pancreatic ductal dilatation with periductal calcifications a few foci of intraluminal ductal air. Intraluminal ductal air raises possibility of a fistula. The findings in part relate to c hronic pancreatitis. Mild intrahepatic and extrahepatic biliary ductal dilatation secondary to extrinsic compression of th e common duct by aforementioned pancreatic calcified lesion.
[2024-12-22 21:49] LABS: Hematocrit 36.5 % (41.0-53.0); Hemoglobin 12.4 g/dL (13.5-17.5); Mean Corpuscular Hemoglobin 32.1 pg (28.0-32.0); Mean Corpuscular Volume 94.5 fL (80.0-100.0); Nucleated Red Blood Cells % 0.0 %
[2024-12-22 22:07] LABS: Alanine Aminotransferase 14 U/L (7-40); Albumin 4.2 g/dL (3.2-4.8); Anion Gap 6 (5-15); BUN/Creatinine Ratio 14.5 (10.0-20.0); Bilirubin, Total 0.3 mg/dL (0.2-1.0); Calcium 9.5 mg/dL (8.7-10.4); Carbon Dioxide 28 mmol/L (20-31); Chloride 100 mmol/L (98-107); Lipase 45 U/L (12-53); Potassium 4.3 mmol/L (3.5-5.1); Total Protein 7.4 g/dL (5.7-8.2)
[2024-12-22 22:08] LABS: Alkaline Phosphatase 127 U/L (46-116); Blood Urea Nitrogen 9 mg/dL (9-23); Glucose 109 mg/dL (74-106); Sodium 134 mmol/L (136-145)
[2024-12-23] MEDS: ONDANSETRON HCL 4 MG/2 ML VIAL IV ONE (00:54)
[2024-12-23] MEDS: KETOROLAC TROMETH 30 MG/ML 1ML VIAL IV ONE (00:54)
[2024-12-23] MEDS: HYDROcodone-ACET 5/325MG TAB PO ONE (00:54)
[2024-12-23] MEDS ORDERED: LACT10SO3 PO (01:15)
[2024-12-23 02:22] VITALS: PULSE 60; RESP 14; O2SAT 95
[2024-12-23 02:29] VITALS: BP 101/67; PULSE 52; RESP 16; TEMP 98.5; O2SAT 99
== END 2024-12-23 02:29 | disposition home or self-care (01) ==
LOC: ER 19:48
DX: K86.1 Other chronic pancreatitis (principal); K59.00 Constipation, unspecified; R10.9 Unspecified abdominal pain; F17.210 Nicotine dependence, cigarettes, uncomplicated; Z98.890 Other specified postprocedural states; Z90.49 Acquired absence of other specified parts of digestive tract
CPT/HCPCS: 36415; 74176; 80053; 83605; 83690; 84484; 85025; 96374; 96375; 99285; J1885; J2405

== ENCOUNTER 2025-01-02 06:48 | Emergency (ER) | payer MEDICAID ==
[~2025-01-02] VITALS: Ht 167.6 cm; Wt 45.9 kg
[~2025-01-02 06:48] MED LIST changes: +LACT10SO3 PO
--- NOTE | 2025-01-02 07:18 | ED.PDOC ---
History of Present Illness HPI Comments 54 y/o underweight M presents with c/c of nonradiating, diffused abdominal pain, nausea, and vomiting. Patient reports on his home-health nurse recommending him to the ED following pain onset 2x days ago, which has been, progressively, worsening since. Significant history of chronic pancreatitis secondary to alcohol abuse, pancreatic mass/pseudocyst, and partial Whipple procedure ([place] procedure with modified [place]), and post-operative biliary dysfunction. Pancreatic care if being followed through [facility] outpatient oncology. Patient states on pain feeling similar to previous pancreatitis episodes in the past. Denies any diarrhea, constipation, fever, ch ills, or further associated symptoms. Upon arrival to ED triage, patient was found hypotensive at 83/62, with no reported history of hypotension or hypertension medication use. Chief Complaint: Abdominal Pain Time Seen by MD: 07:50 Primary Care Provider: MARK Reviewed Notes: Nurses Notes, Medications, Allergies Allergies: Coded Allergies: NO KNOWN ALLERGIES (Unverified , 02/16/24) Home Meds Active Scripts Lactulose (Lactulose) 10 Gm/15 Ml Molly, 10 GM PO DAILYP PRN for 10 Days, #10 ML 0 Refills Prov:BERNIE ALEMAN RESIDENT 12/23/24 Ondansetron Odt 4MG Tab (ZOFRAN PO) 4 Mg Tb, 4 MG PO TIDP PRN for 7 Days, #21 TAB 0 Refills ODT TAB-DISSOLVE IN MOUTH, THEN SWALLOW Prov:ARMIN PORRAS MD 12/07/24 Dicyclomine Hcl (BENTYL CAPSULE) 10 Mg Cp, 1 CAP PO TID PRN, #30 CAP 0 Refills Prov:ARMIN PORRAS MD 12/07/24 Reported Medications Nicotine (Nicotine Transdermal Syst) 21 Mg/24 Hr Dis, TOP 11/01/24 Hydrocodone-Acetaminophen (Hydrocodone/Acetaminophen 10-325 mg) 1 Tab Tab, 1 TAB PO Q4HP PRN for PAIN SCALE 7 THRU 10 11/01/24 Pancreatic Enzymes (Creon) 12,000 Unt Cap, 14470 UNT PO TID, CAP 11/01/24 Information Source: Patient Mode of Arrival: Ambulatory Severity: Moderate Timing: Hours Duration: Since onset Prehospital treatment: None Past Medical History PAST MEDICAL HISTORY: Anxiety Past Medical History (Other): Chronic pancreatitis History of pancreatic mass Head of pancreas pseudocyst Surgical History: Hernia Repair Surgical History (Other): History of partial Whipple procedure ([place] procedure with modified [place]) Post-Operative Biliary Dysfunction Family History Family History: Reviewed,noncontributory to illness, Unknown Social History Smoker: Cigarettes Alcohol: Sober Drugs: Denies Drug Use Lives In: Home All Other Systems: Reviewed and Negative (Comprehensive review of systems are negative unless stated in HPI) Physical Exam General Appearance: Moderate Distress HEENT: Normal ENT Inspection, Pharynx Normal, TMs Normal Neck: Full Range of Motion, Non-Tender, Normal, Normal Inspection Respiratory: Chest Non-Tender, Lungs Clear, No Accessory Muscle Use, No Respiratory Distress, Normal Breath Sounds Cardiovascular: No Edema, No JVD, No Murmur, No Gallop, Normal Peripheral Pulses, Regular Rate/Rhythm Breast Exam: Deferred Gastrointestinal: No Organomegaly, Non Tender, No Pulsatile Mass, Normal Bowel Sounds, Soft Genitalia: Deferred Pelvic: Deferred Rectal: Deferred Extremities: No calf tenderness, Normal capillary refill, Normal inspection, Normal range of motion, Non-tender, No pedal edema Musculoskeletal : Apperance: Normal Neurologic: Alert, cmm inspector II-XII nml as Tested, No Motor Deficits, Normal Affect, Normal Mood, No Sensory Deficits Cerebellar Function: Normal Reflexes: Normal Skin: Dry, Normal Color, Warm Peripheral Pulses: 3+ Radial (R), 3+ Radial (L) Lymphatic: No Adenopathy Was a procedure done? Was a procedure done?: No Differential Dx Considerations may include: Acute on chronic pancreatitis, gastritis, gastroenteritis, GERD, cholelithiasis, cholecystitis, diverticulitis, appendicitis, viral syndrome, among others X-Ray, Labs, Meds, VS Vital Signs Date Time Temp Pulse Resp B/P (MAP) Pulse Ox O2 Delivery O2 Flow Rate FiO2 01/02/25 10:48 118 18 89/49 (62) 97 01/02/25 09:51 97 Room Air* 0 21 01/02/25 09:50 97.9 111 18 86/65 (72) 99 97.9 01/02/25 06:49 97.8 114 18 83/62 97 97.8 Lab Test 01/02/25 07:45 01/02/25 07:27 Range/Units Urine Color Yellow Yellow Urine Clarity Clear Clear Urine pH 6.5 5.0-9.0 Urine Specific [place] 1.018 1.001-1.035 Urine Protein Negative Negative Urine Ketones Negative Negative Urine Blood Negative Negative /uL Urine Nitrite Negative Negative Urine Bilirubin Negative Negative Urine Urobilinogen Normal Negative mg/dL Urine Leukocyte Esterase Negative Negative /uL Urine RBC 3 0 - 3 /hpf Urine Microscopic WBC 1 0-3 /HPF Urine Squamous Epithelial Cells Few <5 /hpf Urine Bacteria None seen None Seen /hpf Urine Mucus Few None Seen Urine Glucose Normal Normal mg/dL White Blood Count 6.9 4.4-10.8 10^3/uL Red Blood Count 4.11 L 4.5-5.90 10^6/uL Hemoglobin 13.1 L 13.5-17.5 g/dL Hematocrit 38.9 L 41.0-53.0 % Mean Corpuscular Volume 94.7 80.0-100.0 fL Mean Corpuscular Hemoglobin 31.9 28.0-32.0 pg Mean Corpuscular Hemoglobin Concent 33.7 32.0-36.0 g/dL Red Cell Distribution Width 16.9 H 11.8-14.3 % Platelet Count 424 140-450 10^3/uL Mean Platelet Volume 6.8 L 6.9-10.8 fL Neutrophils (%) (Auto) 56.6 37.0-80.0 % Lymphocytes (%) (Auto) 32.3 10.0-50.0 % Monocytes (%) (Auto) 7.7 0.0-12.0 % Eosinophils (%) (Auto) 2.7 0.0-7.0 % Basophils (%) (Auto) 0.7 0.0-2.0 % Neutrophils # (Auto) 3.9 1.6-8.6 10 ^3/uL Lymphocytes # (Auto) 2.2 0.4-5.4 10 ^3/uL Monocytes # (Auto) 0.5 0-1.3 10 ^3/uL Eosinophils # (Auto) 0.2 0-0.8 10 ^3/uL Basophils # (Auto) 0.1 0-0.2 10 ^3/uL Nucleated Red Blood Cells 0.0 % Sodium Level 137 136-145 mmol/L Potassium Level 4.2 3.5-5.1 mmol/L Chloride Level 104 98-107 mmol/L Carbon Dioxide Level 28 20-31 mmol/L Anion Gap 5 5-15 Blood Urea Nitrogen 9 9-23 mg/dL Creatinine 0.67 L 0.700-1.30 mg/dL Glomerular Filtration Rate Calc 110 >90 mL/min BUN/Creatinine Ratio 13.4 10.0-20.0 Serum Glucose 112 H 74-106 mg/dL Calcium Level 9.5 8.7-10.4 mg/dL Total Bilirubin 0.3 0.2-1.0 mg/dL Aspartate Amino Transferase (AST) 18 13-40 U/L Alanine Aminotransferase (ALT) 13 7-40 U/L Alkaline Phosphatase 129 H 46-116 U/L Total Protein 7.6 5.7-8.2 g/dL Albumin 4.2 3.2-4.8 g/dL Lipase 38 12-53 U/L Current Medications Medications (Trade) Dose Ordered Sig/Desean Route Start Time Stop Time Status Last Admin Acetaminophen/ Hydrocodone Bitart ([place] 5/325MG Tab) 1 tab ONCE ONCE PO 01/02/25 09:45 01/02/25 09:46 DC 01/02/25 09:50 Patient alert. Complaining of abdominal discomfort. Vitals stable. Answering questions. Lipase within normal limits. Was given [place]. WBC within normal limits. Explained to the patient. Was told to follow up with his primary care physician. Was told to come back if there is any problem. Time of 1ST Reevaluation: 08:20 Reevaluation 1ST: Unchanged Patient Education/Counseling: Diagnosis, Treatment Family Education/Counseling: No Family Present SEPSIS Sepsis Screen Date sepsis recognized/suspect: Jan 02, 2025 Time Sepsis recognized/suspect: 06 Recent Procedure: No On Antibiotic Therapy: No Respiratory Rate >20: No Heart Rate >90: No Temp<36 C (96.8 F) or >38.3 C: No SBP <90 or MAP <65 mmHG: No New Acute Mental Status Change: No Is the patient on CPAP, BIPAP,: No Vital Signs Date Time Temp Pulse Resp B/P (MAP) Pulse Ox O2 Delivery O2 Flow Rate FiO2 01/02/25 10:48 118 18 89/49 (62) 97 01/02/25 09:51 97 Room Air* 0 21 01/02/25 09:50 97.9 111 18 86/65 (72) 99 97.9 01/02/25 06:49 97.8 114 18 83/62 97 97.8 Laboratory Tests Test 01/02/25 07:27 White Blood Count 6.9 10^3/uL (4.4-10.8) Medications Medications Dose Ordered Sig/Desean Route Start Time Stop Time Status Last Admin Dose Admin Acetaminophen/ Hydrocodone Bitart 1 tab ONCE ONCE PO 01/02/25 09:45 01/02/25 09:46 DC 01/02/25 09:50 Departure 1 Departure Time of Disposition: 12:04 Impression: Primary Impression: Gastritis Qualified Codes: K29.00 - Acute gastritis without bleeding Disposition: 01 HOME / SELF CARE / HOMELESS Condition: Good Discharged With: Self Critical Care Note Critical Care Time?: No Stability Stability form required: No Heart Score Heart Score: Heart Score Response (Comments) Value History N/A 0 EKG N/A 0 Age N/A 0 Risk Factors N/A 0 Troponin N/A 0 Total 0 I personally scribed for NATALEE ROMEO MD ([email or web address]) on 01/02/25 at 07:18. Electronically submitted by Rahul Renae ([email or web address]). I personally scribed for NATALEE ROMEO MD ([email or web address]) on 01/02/25 at 08:02. Electronically submitted by Rahul Renae ([email or web address]). NATALEE ROMEO MD Jan 02, 2025 07:18
[2025-01-02 07:49] LABS: Hematocrit 38.9 % (41.0-53.0); Hemoglobin 13.1 g/dL (13.5-17.5); Mean Corpuscular Hemoglobin 31.9 pg (28.0-32.0); Mean Corpuscular Volume 94.7 fL (80.0-100.0); Nucleated Red Blood Cells % 0.0 %
[2025-01-02 08:03] LABS: Alanine Aminotransferase 13 U/L (7-40); Albumin 4.2 g/dL (3.2-4.8); Anion Gap 5 (5-15); BUN/Creatinine Ratio 13.4 (10.0-20.0); Calcium 9.5 mg/dL (8.7-10.4); Carbon Dioxide 28 mmol/L (20-31); Chloride 104 mmol/L (98-107); Potassium 4.2 mmol/L (3.5-5.1); Sodium 137 mmol/L (136-145); Total Protein 7.6 g/dL (5.7-8.2)
[2025-01-02 08:05] LABS: Alkaline Phosphatase 129 U/L (46-116); Bilirubin, Total 0.3 mg/dL (0.2-1.0); Blood Urea Nitrogen 9 mg/dL (9-23); Glucose 112 mg/dL (74-106)
[2025-01-02 08:28] LABS: Urine Protein, UAD Negative (Negative)
[2025-01-02 09:50] VITALS: TEMP 97.9
[2025-01-02] MEDS: HYDROcodone-ACET 5/325MG TAB PO ONE (09:50)
[2025-01-02 10:05] LABS: Lipase 38 U/L (12-53)
[2025-01-02 10:48] VITALS: BP 89/49; PULSE 118; RESP 18; O2SAT 97
== END 2025-01-02 12:12 | disposition home or self-care (01) ==
LOC: ER 06:48
DX: K29.00 Acute gastritis without bleeding (principal); F17.210 Nicotine dependence, cigarettes, uncomplicated; F10.10 Alcohol abuse, uncomplicated; Z87.19 Personal history of other diseases of the digestive system; Z79.899 Other long term (current) drug therapy; Z98.890 Other specified postprocedural states; Z90.49 Acquired absence of other specified parts of digestive tract; Z90.411 Acquired partial absence of pancreas; Y90.9 Presence of alcohol in blood, level not specified
CPT/HCPCS: 36415; 80053; 81001; 83690; 85025

== ENCOUNTER 2025-01-08 15:07 | Emergency (ER) | payer MEDICAID ==
[~2025-01-08] VITALS: Ht 152.4 cm; Wt 54.5 kg
[2025-01-08 15:30] VITALS: PULSE 84; RESP 20; O2SAT 97
--- NOTE | 2025-01-08 15:39 | ED.PDOC ---
History of Present Illness HPI Comments 54 y/o underweight M presents with c/c of nonradiating, diffused abdominal pain. Significant history of chronic pancreatitis secondary to alcohol abuse, pancreatic mass/pseudocyst, and partial Whipple procedure ([place] procedure with modified [place]), and post-operative biliary dysfunction. Pancreatic care if being followed through [facility] outpatient oncology. Patient states on pain feeling similar to previous pancreatitis flare-up episodes in the past and inquires for pain management. Denies any nausea, vomiting, diarrhea, constipation, fever, chills, or further associated symptoms. Patient has a pain management doctor on board, but states that the treatment has not been helpful. Vital signs were stable. Time Seen by MD: 15:10 Primary Care Provider: MARK Reviewed Notes: Nurses Notes, Medications, Allergies Allergies: Coded Allergies: NO KNOWN ALLERGIES (Unverified , 02/16/24) Home Meds Active Scripts Lactulose (Lactulose) 10 Gm/15 Ml Molly, 10 GM PO DAILYP PRN for 10 Days, #10 ML 0 Refills Prov:BERNIE ALEMAN RESIDENT 12/23/24 Ondansetron Odt 4MG Tab (ZOFRAN PO) 4 Mg Tb, 4 MG PO TIDP PRN for 7 Days, #21 TAB 0 Refills ODT TAB-DISSOLVE IN MOUTH, THEN SWALLOW Prov:AMRIN PORRAS MD 12/07/24 Dicyclomine Hcl (BENTYL CAPSULE) 10 Mg Cp, 1 CAP PO TID PRN, #30 CAP 0 Refills Prov:ARMIN PORRAS MD 12/07/24 Reported Medications Nicotine (Nicotine Transdermal Syst) 21 Mg/24 Hr Dis, TOP 11/01/24 Hydrocodone-Acetaminophen (Hydrocodone/Acetaminophen 10-325 mg) 1 Tab Tab, 1 TAB PO Q4HP PRN for PAIN SCALE 7 THRU 10 11/01/24 Pancreatic Enzymes (Creon) 12,000 Unt Cap, 09925 UNT PO TID, CAP 11/01/24 Information Source: Patient, Emergency Med Personnel Mode of Arrival: EMS Severity: Moderate Timing: Hours Duration: Since onset Prehospital treatment: 12 Lead EKG, Cooler Supervisor Past Medical History PAST MEDICAL HISTORY: Anxiety Past Medical History (Other): chronic pancreatitis secondary to alcohol abuse pancreatic mass/pseudocyst Surgical History: Hernia Repair Surgical History (Other): post-operative biliary dysfunction partial Whipple procedure ([place] procedure with modified [place]) Family History Family History: Reviewed,noncontributory to illness, Unknown Social History Smoker: Cigarettes Alcohol: Sober Drugs: Denies Drug Use Lives In: Home Constitutional: denies: chills, diaphoresis, fatigue, fever, malaise, sweats, weakness, others EENTM: denies: blurred vision, double vision, ear bleeding, ear discharge, ear drainage, ear pain, ear ringing, eye pain, eye redness, hearing loss, mouth pain, mouth swelling, nasal discharge, nose bleeding, nose congestion, nose pain, photophobia, tearing, throat pain, throat swelling, voice changes, others Respiratory: denies: cough, hemoptysis, orthopnea, SOB at rest, shortness of breath, SOB with excertion, stridor, wheezing, others Cardiovascular: denies: chest pain, dizzy spells, diaphoresis, Dyspnea on exertion, edema, irregular heart beat, left arm pain, lightheadedness, palpitations, PND, syncope, others Gastrointestinal: reports: abdominal pain; denies: abdomen distended, blood streaked bowels, constipated, diarrhea, dysphagia, difficulty swallowing, hematemesis, melena, nausea, poor appetite, poor fluid intake, rectal bleeding, rectal pain, vomiting, others Genitourinary: denies: burning, dysuria, flank pain, frequency, hematuria, incontinence, penile discharge, penile sore, pain, testicle pain, testicle swelling, urgency, others Neurological: denies: dizziness, fainting, headache, left sided numbness, left sided weakness, numbness, paresthesia, pre-existing deficit, right sided numbness, right sided weakness, seizure, speech problems, tingling, tremors, weakness, others Musculoskeletal: denies: back pain, gout, joint pain, joint swelling, muscle pain, muscle stiffness, neck pain, others Integumetry: denies: bruises, change in color, change in hair/nails, dryness, laceration, lesions, lumps, rash, wounds, others Allergic/Immunocompromised: denies: Difficulty Healing, Frequent Infections, Hives, Itching, others Hematologic/Lymphatic: denies: anemia, blood clots, easy bleeding, easy bruising, swollen glands, others Endocrine: denies: excessive hunger, excessive sweating, excessive thirst, excessive urination, flushing, intolerance to cold, intolerance to heat, unexplained weight gain, unexplained weight loss, others Psychiatric: denies: anxiety, bipolar disorder, depression, hopeless, panic disorder, schizophrenia, sleepless, suicidal, others All Other Systems: Reviewed and Negative (Comprehensive systems review obtained and negative except for what is stated in the HPI.) Physical Exam General Appearance: Moderate Distress (Moderate distress due to continued epigastric abdominal pain), Normal HEENT: Normal ENT Inspection, Pharynx Normal, TMs Normal Neck: Full Range of Motion, Non-Tender, Normal, Normal Inspection Respiratory: Chest Non-Tender, Lungs Clear, No Accessory Muscle Use, No Respiratory Distress, Normal Breath Sounds Cardiovascular: No Edema, No JVD, No Murmur, No Gallop, Normal Peripheral Pulses, Regular Rate/Rhythm Breast Exam: Deferred Gastrointestinal: Other (Diffuse bilateral epigastric tenderness to palpation throughout. Abdomen was mildly rigid. No pulsatile masses. No signs of trauma.) Genitalia: Deferred Pelvic: Deferred Rectal: Deferred Extremities: No calf tenderness, Normal inspection Neurologic: Alert Cerebellar Function: NOT DONE Reflexes: NOT DONE Skin: Dry, Normal Color, Warm Lymphatic: No Adenopathy Was a procedure done? Was a procedure done?: No Differential Dx Considerations may include: Acute on chronic pancreatitis X-Ray, Labs, Meds, VS Vital Signs Date Time Temp Pulse Resp B/P (MAP) Pulse Ox O2 Delivery O2 Flow Rate FiO2 01/08/25 16:13 105 16 92/52 (65) 99 01/08/25 16:12 105 16 92/52 01/08/25 15:42 77 18 97/66 01/08/25 15:42 98.2 77 18 97/66 (76) 97 98.2 01/08/25 15:17 97.8 92 20 99/69 100 97.8 Current Medications Medications (Trade) Dose Ordered Sig/Desean Route Start Time Stop Time Status Last Admin Hydromorphone HCl (Dilaudid Injection) 1 mg ONCE ONCE IM 01/08/25 15:30 01/08/25 15:31 DC 01/08/25 15:42 X-Ray, Labs, Meds, VS Comment Patient had good improvement of symptoms status post medication dispensed. I discussed the patient's concerns with both of our social and political studies professor's. Patient has been advised that he does not qualify for a half-way placement and therefore, patient needs to contact a counselor utilize with the number on the back of his P medical card. Patient has been instructed as to what to do moving forward and additionally, patient has been advised to follow up with pain management for discussions related to improved management of his chronic pancreatic issues. Time of 1ST Reevaluation: 18:21 Reevaluation 1ST: Improved Consultation: PCP, Other (Pain management) Patient Education/Counseling: Diagnosis, Treatment Family Education/Counseling: Diagnosis, Treatment, No Family Present SEPSIS Sepsis Screen Recent Procedure: No On Antibiotic Therapy: No Respiratory Rate >20: No Heart Rate >90: No Temp<36 C (96.8 F) or >38.3 C: No SBP <90 or MAP <65 mmHG: No New Acute Mental Status Change: No Is the patient on CPAP, BIPAP,: No Physician Orders * Site Inspector Consult (01/08/25 ) Vital Signs Date Time Temp Pulse Resp B/P (MAP) Pulse Ox O2 Delivery O2 Flow Rate FiO2 01/08/25 16:13 105 16 92/52 (65) 99 01/08/25 16:12 105 16 92/52 01/08/25 15:42 77 18 97/66 01/08/25 15:42 98.2 77 18 97/66 (76) 97 98.2 01/08/25 15:17 97.8 92 20 99/69 100 97.8 Medications Medications Dose Ordered Sig/Desean Route Start Time Stop Time Status Last Admin Dose Admin Hydromorphone HCl 1 mg ONCE ONCE IM 01/08/25 15:30 01/08/25 15:31 DC 01/08/25 15:42 Departure 1 Departure Time of Disposition: 18:21 Impression: Primary Impression: Acute on chronic pancreatitis Disposition: 01 HOME / SELF CARE / HOMELESS Condition: Stable Additional Instructions: Patient has been advised for continue follow up with the pain management as well as evaluation through his [facility] social service parts driver. Discharged With: Self, Friend Critical Care Note Critical Care Time?: No Stability Stability form required: No Heart Score Heart Score: Heart Score Response (Comments) Value History N/A 0 EKG N/A 0 Age N/A 0 Risk Factors N/A 0 Troponin N/A 0 Total 0 I personally scribed for LIDIA GRAY PAC ([email or web address]) on 01/08/25 at 15:39. Electronically submitted by Rahul Renae ([email or web address]). LIDIA GRAY PAC Jan 08, 2025 15:39
[2025-01-08] MEDS: HYDROmorphone HCL 2 MG/ML VL/or syr IM ONE (15:42)
[2025-01-08 18:24] VITALS: BP 84/53; PULSE 96; RESP 18; TEMP 97.9; O2SAT 98
== END 2025-01-08 18:54 | disposition home or self-care (01) ==
LOC: ER 15:07 → EDUNIT# 15:07 → EDBD 15:07 → ER 18:54
DX: K85.90 Acute pancreatitis without necrosis or infection, unspecified (principal); K86.0 Alcohol-induced chronic pancreatitis; F41.9 Anxiety disorder, unspecified; F17.210 Nicotine dependence, cigarettes, uncomplicated; Z90.49 Acquired absence of other specified parts of digestive tract; Z98.890 Other specified postprocedural states
CPT/HCPCS: 96372; 99285; J1171

== ENCOUNTER 2025-01-17 05:40 | Emergency (ER) | payer MEDICAID ==
[~2025-01-17] VITALS: Ht 167.6 cm; Wt 47.0 kg
--- NOTE | 2025-01-17 07:11 | ED.PDOC ---
GI ASSESSMENT HPI Comments 54 y/o M, with PMHx of chronic pancreatitis presents to the ED for CC of abdominal pain. Patient reports, he has been experiencing diffuse abdominal pain xdays with associated left elbow bulging/pain. Patient relays, that he is taking pain medications as prescribed however, has experienced no relief. Patient comments, that he has a scheduled follow up appointment with oncology for his pancreatitis. Patient endorses, left-elbow bulging to have came on suddenly. Patient denies any recent trauma, injury, or fall. No other symptoms or modifying factors are present at this time. Chief Complaint: Abdominal Pain Time Seen by MD: 06:35 Primary Care Provider: MARK Reviewed Notes: Nurses Notes, Medications, Allergies Allergies: Coded Allergies: NO KNOWN ALLERGIES (Unverified , 02/16/24) Home Meds Active Scripts Lactulose (Lactulose) 10 Gm/15 Ml Molly, 10 GM PO DAILYP PRN for 10 Days, #10 ML 0 Refills Prov:BERNIE ALEMAN RESIDENT 12/23/24 Ondansetron Odt 4MG Tab (ZOFRAN PO) 4 Mg Tb, 4 MG PO TIDP PRN for 7 Days, #21 TAB 0 Refills ODT TAB-DISSOLVE IN MOUTH, THEN SWALLOW Prov:ARMIN PORRAS MD 12/07/24 Dicyclomine Hcl (BENTYL CAPSULE) 10 Mg Cp, 1 CAP PO TID PRN, #30 CAP 0 Refills Prov:ARMIN PORRAS MD 12/07/24 Reported Medications Nicotine (Nicotine Transdermal Syst) 21 Mg/24 Hr Dis, TOP 11/01/24 Hydrocodone-Acetaminophen (Hydrocodone/Acetaminophen 10-325 mg) 1 Tab Tab, 1 TAB PO Q4HP PRN for PAIN SCALE 7 THRU 10 11/01/24 Pancreatic Enzymes (Creon) 12,000 Unt Cap, 68766 UNT PO TID, CAP 11/01/24 Information Source: Patient Mode of Arrival: Ambulatory Timing: Days Duration: Since onset Prehospital treatment: None Quality: Cramping Vomitus: None Stool: Normal Severity: Moderate Recent: None Recent Hx of: Other (pancreatitis) Pain Location: Diffuse Modifying Factors: Nothing Associated sign and symptoms: Abdominal Pain Past Medical History PAST MEDICAL HISTORY: Anxiety Surgical History: Hernia Repair Family History Family History: Reviewed,noncontributory to illness, Unknown Social History Smoker: Cigarettes Alcohol: Sober Drugs: Denies Drug Use Lives In: Home Constitutional: denies: chills, diaphoresis, fatigue, fever, malaise, sweats, weakness, others EENTM: denies: blurred vision, double vision, ear bleeding, ear discharge, ear drainage, ear pain, ear ringing, eye pain, eye redness, hearing loss, mouth pain, mouth swelling, nasal discharge, nose bleeding, nose congestion, nose pain, photophobia, tearing, throat pain, throat swelling, voice changes, others Respiratory: denies: cough, hemoptysis, orthopnea, SOB at rest, shortness of breath, SOB with excertion, stridor, wheezing, others Cardiovascular: denies: chest pain, dizzy spells, diaphoresis, Dyspnea on exertion, edema, irregular heart beat, left arm pain, lightheadedness, palpitations, PND, syncope, others Gastrointestinal: reports: abdominal pain; denies: abdomen distended, blood streaked bowels, constipated, diarrhea, dysphagia, difficulty swallowing, hematemesis, melena, nausea, poor appetite, poor fluid intake, rectal bleeding, rectal pain, vomiting, others Genitourinary: denies: burning, dysuria, flank pain, frequency, hematuria, incontinence, penile discharge, penile sore, pain, testicle pain, testicle swelling, urgency, others Neurological: denies: dizziness, fainting, headache, left sided numbness, left sided weakness, numbness, paresthesia, pre-existing deficit, right sided numbness, right sided weakness, seizure, speech problems, tingling, tremors, weakness, others Musculoskeletal: reports: others (left-elbow); denies: back pain, gout, joint pain, joint swelling, muscle pain, muscle stiffness, neck pain Integumetry: denies: bruises, change in color, change in hair/nails, dryness, laceration, lesions, lumps, rash, wounds, others Allergic/Immunocompromised: denies: Difficulty Healing, Frequent Infections, Hives, Itching, others Hematologic/Lymphatic: denies: anemia, blood clots, easy bleeding, easy bruising, swollen glands, others Endocrine: denies: excessive hunger, excessive sweating, excessive thirst, excessive urination, flushing, intolerance to cold, intolerance to heat, unexplained weight gain, unexplained weight loss, others Psychiatric: denies: anxiety, bipolar disorder, depression, hopeless, panic disorder, schizophrenia, sleepless, suicidal, others All Other Systems: Reviewed and Negative Physical Exam General Appearance: Moderate Distress HEENT: Normal ENT Inspection, Pharynx Normal, TMs Normal Neck: Full Range of Motion, Non-Tender, Normal, Normal Inspection Respiratory: Chest Non-Tender, Lungs Clear, No Accessory Muscle Use, No Respiratory Distress, Normal Breath Sounds Cardiovascular: No Edema, No JVD, No Murmur, No Gallop, Normal Peripheral Pulses, Regular Rate/Rhythm Breast Exam: Deferred Gastrointestinal: No Organomegaly, Non Tender, No Pulsatile Mass, Normal Bowel Sounds, Soft Genitalia: Deferred Pelvic: Deferred Rectal: Deferred Extremities: No calf tenderness, Normal capillary refill, Normal inspection, Normal range of motion, Non-tender, No pedal edema, Other (Left elbow hard calcified lesion) Musculoskeletal : Apperance: Normal Neurologic: Alert, blanket washer II-XII nml as Tested, No Motor Deficits, Normal Affect, Normal Mood, No Sensory Deficits Cerebellar Function: Normal Reflexes: Normal Skin: Dry, Normal Color, Warm Peripheral Pulses: 3+ Radial (R), 3+ Radial (L) Lymphatic: No Adenopathy Was a procedure done? Was a procedure done?: No GI differential Dx Differential Diagnosis: Constipation, Diverticular disease, Esophagitis, Gastritis/PUD, Gastroenteritis, Pancreatitis X-Ray, Labs, Meds, VS Vital Signs Date Time Temp Pulse Resp B/P (MAP) Pulse Ox O2 Delivery O2 Flow Rate FiO2 01/17/25 05:41 97.9 107 16 95/64 96 97.9 Lab Test 01/17/25 06:50 Range/Units Lipase Pending Patient alert. Complaining of abdominal discomfort. Comes regularly for similar episode. Vitals stable. History of chronic pancreatitis pain Already had his Whipple's procedure. Chronic left elbow lesion. No acute process. Explained to the patient. Was told to follow up with his primary care physician. Was told to come back if there is any problem. Time of 1ST Reevaluation: 07:05 Reevaluation 1ST: Unchanged Patient Education/Counseling: Diagnosis, Treatment Family Education/Counseling: No Family Present SEPSIS Sepsis Screen Date sepsis recognized/suspect: Jan 17, 2025 Time Sepsis recognized/suspect: 543 Recent Procedure: No On Antibiotic Therapy: No Respiratory Rate >20: No Heart Rate >90: Yes Temp<36 C (96.8 F) or >38.3 C: No SBP <90 or MAP <65 mmHG: No New Acute Mental Status Change: No Is the patient on CPAP, BIPAP,: No Physician Orders Lipase (01/17/25 06:38) Sodium Chloride 0.9% (01/17/25 06:45) Vital Signs Date Time Temp Pulse Resp B/P (MAP) Pulse Ox O2 Delivery O2 Flow Rate FiO2 01/17/25 05:41 97.9 107 16 95/64 96 97.9 Departure 1 Departure Time of Disposition: 07:16 Impression: Primary Impression: Chronic pancreatitis Qualified Codes: K86.1 - Other chronic pancreatitis Disposition: HOME / SELF CARE / HOMELESS Condition: Good Discharged With: Self Critical Care Note Critical Care Time?: No Stability Stability form required: No Heart Score Heart Score: Heart Score Response (Comments) Value History N/A 0 EKG N/A 0 Age N/A 0 Risk Factors N/A 0 Troponin N/A 0 Total 0 I personally scribed for NATALEE ROMEO MD ([email or web address]) on 01/17/25 at 07:11. Electronically submitted by Lorri Trujillo ([email or web address]). NATALEE ROMEO MD Jan 17, 2025 07:11
[2025-01-17] MEDS: SODIUM CHLORIDE 0.9% 1,000 ML IVB ONE (07:48)
[2025-01-17] MEDS: ONDANSETRON HCL 4 MG/2 ML VIAL IV ONE (07:50)
[2025-01-17] MEDS: MORPHINE SULFATE 4 MG/ML SYR/VIAL IV ONE (07:51)
--- NOTE | 2025-01-17 09:12 | DVH ---
XY L ELBOW 2 VIEW XRAY, INDICATION: calcification TECHNICAL DATA: Frontal and lateral views were obtained of the left elbow. COMPARISON: None FINDINGS: No fracture is identified. Joint spaces are maintained. Alignment at the joint is anatomic. Soft tiss ues are within normal limits. No joint effusion is demonstrated. IMPRESSION: No acute fracture or dislocation of the left elbow.
[2025-01-17 09:24] VITALS: TEMP 98.9; O2SAT 98
[2025-01-17 09:39] VITALS: BP 91/55; PULSE 96; RESP 18
== END 2025-01-17 09:38 | disposition home or self-care (01) ==
LOC: ER 05:40
DX: K86.1 Other chronic pancreatitis (principal); F17.210 Nicotine dependence, cigarettes, uncomplicated; Z98.890 Other specified postprocedural states; Z79.899 Other long term (current) drug therapy
CPT/HCPCS: 36415; 73070; 83690; 96361; 96374; 96375; 99284; J2270; J2405; J7030

== ENCOUNTER 2025-02-13 16:11 | Inpatient (IN) | payer MEDICAID ==
[~2025-02-13] VITALS: Ht 167.6 cm; Wt 45.0 kg
[2025-02-13 16:43] LABS: Nucleated Red Blood Cells % 0.1 %
[2025-02-13 16:45] LABS: Hematocrit 36.5 % (41.0-53.0); Hemoglobin 12.3 g/dL (13.5-17.5); Mean Corpuscular Hemoglobin 32.4 pg (28.0-32.0); Mean Corpuscular Volume 95.9 fL (80.0-100.0)
[2025-02-13 16:46] LABS: Chloride 100 mmol/L (98-107); Potassium 4.5 mmol/L (3.5-5.1)
[2025-02-13 16:47] LABS: Anion Gap 7 (5-15); Calcium 9.7 mg/dL (8.7-10.4); Carbon Dioxide 28 mmol/L (20-31)
[2025-02-13 16:49] LABS: Sodium 135 mmol/L (136-145)
[2025-02-13 16:52] LABS: BUN/Creatinine Ratio 20.0 (10.0-20.0); Blood Urea Nitrogen 11 mg/dL (9-23); Lipase 29 U/L (12-53)
[2025-02-13 16:57] LABS: Glucose 122 mg/dL (74-106)
--- NOTE | 2025-02-13 19:11 | ED.PDOC ---
GI ASSESSMENT HPI Comments 55-year-old male who came to ER for abdominal pain. Patient has history of chronic pancreatitis status post Whipple's procedure. States for the past few days he has been experiencing sharp epigastric abdominal pain, with episodes of nausea and vomiting. Intake of multiple pain medications offered no relief. Chief Complaint: Abdominal Pain Time Seen by MD: 19:10 Primary Care Provider: MARK Cody Notes: Nurses Notes Allergies: Coded Allergies: NO KNOWN ALLERGIES (Unverified , 02/16/24) Home Meds Active Scripts Lactulose (Lactulose) 10 Gm/15 Ml Molly, 10 GM PO DAILYP PRN for 10 Days, #10 ML 0 Refills Prov:BERNIE ALEMAN RESIDENT 12/23/24 Ondansetron Odt 4MG Tab (ZOFRAN PO) 4 Mg Tb, 4 MG PO TIDP PRN for 7 Days, #21 TAB 0 Refills ODT TAB-DISSOLVE IN MOUTH, THEN SWALLOW Prov:ARMIN PORRAS MD 12/07/24 Dicyclomine Hcl (BENTYL CAPSULE) 10 Mg Cp, 1 CAP PO TID PRN, #30 CAP 0 Refills Prov:ARMIN PORRAS MD 12/07/24 Reported Medications Nicotine (Nicotine Transdermal Syst) 21 Mg/24 Hr Dis, TOP 11/01/24 Hydrocodone-Acetaminophen (Hydrocodone/Acetaminophen 10-325 mg) 1 Tab Tab, 1 TAB PO Q4HP PRN for PAIN SCALE 7 THRU 10 11/01/24 Pancreatic Enzymes (Creon) 12,000 Unt Cap, 20669 UNT PO TID, CAP 11/01/24 Information Source: Patient Mode of Arrival: Ambulatory Timing: Days Duration: Intermittent Past Medical History PAST MEDICAL HISTORY: Anxiety Past Medical History (Other): Pancreatitis Surgical History: Hernia Repair Surgical History (Other): whipples procedure Family History Family History: Reviewed,noncontributory to illness, Unknown Social History Smoker: Cigarettes Alcohol: Sober Drugs: Denies Drug Use Lives In: Home Constitutional: denies: chills, diaphoresis, fatigue, fever, malaise, sweats, weakness, others EENTM: denies: blurred vision, double vision, ear bleeding, ear discharge, ear drainage, ear pain, ear ringing, eye pain, eye redness, hearing loss, mouth pain, mouth swelling, nasal discharge, nose bleeding, nose congestion, nose pain, photophobia, tearing, throat pain, throat swelling, voice changes, others Respiratory: denies: cough, hemoptysis, orthopnea, SOB at rest, shortness of breath, SOB with excertion, stridor, wheezing, others Cardiovascular: denies: chest pain, dizzy spells, diaphoresis, Dyspnea on exertion, edema, irregular heart beat, left arm pain, lightheadedness, palpitations, PND, syncope, others Gastrointestinal: reports: abdominal pain, nausea, vomiting; denies: abdomen distended, blood streaked bowels, constipated, diarrhea, dysphagia, difficulty swallowing, hematemesis, melena, poor appetite, poor fluid intake, rectal bleeding, rectal pain, others Genitourinary: denies: burning, dysuria, flank pain, frequency, hematuria, incontinence, penile discharge, penile sore, pain, testicle pain, testicle swelling, urgency, others Neurological: denies: dizziness, fainting, headache, left sided numbness, left sided weakness, numbness, paresthesia, pre-existing deficit, right sided numbness, right sided weakness, seizure, speech problems, tingling, tremors, weakness, others Musculoskeletal: denies: back pain, gout, joint pain, joint swelling, muscle pain, muscle stiffness, neck pain, others Integumetry: denies: bruises, change in color, change in hair/nails, dryness, laceration, lesions, lumps, rash, wounds, others Allergic/Immunocompromised: denies: Difficulty Healing, Frequent Infections, Hives, Itching, others Hematologic/Lymphatic: denies: anemia, blood clots, easy bleeding, easy bruising, swollen glands, others Endocrine: denies: excessive hunger, excessive sweating, excessive thirst, excessive urination, flushing, intolerance to cold, intolerance to heat, unexpl ained weight gain, unexplained weight loss, others Psychiatric: denies: anxiety, bipolar disorder, depression, hopeless, panic disorder, schizophrenia, sleepless, suicidal, others Physical Exam General Appearance: No Apparent Distress, Normal HEENT: Normal ENT Inspection, Pharynx Normal, TMs Normal Neck: Full Range of Motion, Non-Tender, Normal, Normal Inspection Respiratory: Chest Non-Tender, Lungs Clear, No Accessory Muscle Use, No Respiratory Distress, Normal Breath Sounds Cardiovascular: No Edema, No JVD, No Murmur, No Gallop, Normal Peripheral Pulses, Regular Rate/Rhythm Breast Exam: Deferred Gastrointestinal: No Organomegaly, Non Tender, No Pulsatile Mass, Normal Bowel Sounds, Soft Genitalia: Deferred Pelvic: Deferred Rectal: Deferred Extremities: No calf tenderness, Normal capillary refill, Normal inspection, Normal range of motion, Non-tender, No pedal edema Musculoskeletal : Apperance: Normal Neurologic: Alert, floor renovator II-XII nml as Tested, No Motor Deficits, Normal Affect, Normal Mood, No Sensory Deficits Cerebellar Function: Normal Reflexes: Normal Skin: Dry, Normal Color, Warm Lymphatic: No Adenopathy Was a procedure done? Was a procedure done?: No GI differential Dx Differential Diagnosis: Diverticular disease, Gastritis/PUD, Gastroenteritis, Pancreatitis, UTI, Urolithiasis X-Ray, Labs, Meds, VS Vital Signs Date Time Temp Pulse Resp B/P (MAP) Pulse Ox O2 Delivery O2 Flow Rate FiO2 02/13/25 20:21 93 20 127/111 02/13/25 20:04 97.7 93 20 127/111 (116) 98 97.7 02/13/25 16:26 87 02/13/25 16:12 97.8 101 20 90/65 100 97.8 Lab Test 02/13/25 16:32 Range/Units White Blood Count 6.4 4.4-10.8 10^3/uL Red Blood Count 3.81 L 4.5-5.90 10^6/uL Hemoglobin 12.3 L 13.5-17.5 g/dL Hematocrit 36.5 L 41.0-53.0 % Mean Corpuscular Volume 95.9 80.0-100.0 fL Mean Corpuscular Hemoglobin 32.4 H 28.0-32.0 pg Mean Corpuscular Hemoglobin Concent 33.8 32.0-36.0 g/dL Red Cell Distribution Width 13.9 11.8-14.3 % Platelet Count 508 H 140-450 10^3/uL Mean Platelet Volume 6.5 L 6.9-10.8 fL Neutrophils (%) (Auto) 65.8 37.0-80.0 % Lymphocytes (%) (Auto) 25.4 10.0-50.0 % Monocytes (%) (Auto) 7.7 0.0-12.0 % Eosinophils (%) (Auto) 0.6 0.0-7.0 % Basophils (%) (Auto) 0.5 0.0-2.0 % Neutrophils # (Auto) 4.2 1.6-8.6 10 ^3/uL Lymphocytes # (Auto) 1.6 0.4-5.4 10 ^3/uL Monocytes # (Auto) 0.5 0-1.3 10 ^3/uL Eosinophils # (Auto) 0 0-0.8 10 ^3/uL Basophils # (Auto) 0 0-0.2 10 ^3/uL Nucleated Red Blood Cells 0.1 % Sodium Level 135 L 136-145 mmol/L Potassium Level 4.5 3.5-5.1 mmol/L Chloride Level 100 98-107 mmol/L Carbon Dioxide Level 28 20-31 mmol/L Anion Gap 7 5-15 Blood Urea Nitrogen 11 9-23 mg/dL Creatinine 0.55 L 0.700-1.30 mg/dL Glomerular Filtration Rate Calc 116 >90 mL/min BUN/Creatinine Ratio 20.0 10.0-20.0 Serum Glucose 122 H 74-106 mg/dL Calcium Level 9.7 8.7-10.4 mg/dL Lipase 29 12-53 U/L Current Medications Medications (Trade) Dose Ordered Sig/Desean Route Start Time Stop Time Status Last Admin Ondansetron HCl (Zofran) 4 mg ONCE ONCE IV 02/13/25 19:15 02/13/25 19:16 DC 02/13/25 20:20 Hydromorphone HCl (Dilaudid Injection) 1 mg ONCE ONCE IV 02/13/25 19:15 02/13/25 19:16 DC 02/13/25 20:21 Sodium Chloride 1,000 ml @ 1,000 mls/hr Q1H ONCE IVB 02/13/25 19:15 02/13/25 20:14 DC 02/13/25 20:20 COMPUTERIZED TOMOGRAPHY ABDOMEN AND PELVIS WITH CONTRAST REASON FOR EXAM: Abdominal pain COMPARISON: CT CT AB PEL WO CON-NO ORAL OR IV on DOS: 12/22/24, CT CT AB PEL WO CON-NO ORAL OR IV on DOS: 12/06/24, CT CT ABD PELVIS W CON-ORAL IV on DOS: 11/01/24, CT CT AB PEL WO CON-NO ORAL OR IV on DOS: 10/19/24, CT CT AB PEL WITH IV CON ONLY on DOS: 10/09/24 TECHNIQUE: The exam was performed on a Multidetector scanner. Spiral scans were acquired from the diaphragm to the symphysis pubis after administration of IV contrast. 2-D coronal and sagittal reformatted images were provided. Radiation optimization: All CT scans at this facility use at least one of these dose optimization techniques: Automated exposure control mA and/or kV adjustment per patient size (includes targeted exams where dose is matched to clinical indication) or iterative reconstruction. CONTRAST ADMINISTRATION: 100 mL omnipaque 300 intravenously RADIATION DOSE: CTDI: 5 mGy DLP: 262 mGy-cm FINDINGS: There are several scattered nodules in the right lower lobe measuring up to 3 mm. There is no pleural effusion. There is no pericardial effusion. The spleen is not enlarged. The liver is within normal limits for size and contour. There is intrahepatic biliary dilation. No calcified gallstone is identified. The common bile duct is dilated at 10 mm with abrupt narrowing at the level of the pancreatic head. There are coarse calcifications in the head and body of the pancreas consistent with chronic pancreatitis. There is gas within the body of the pancreas, likely within the pancreatic duct. The adrenal glands appear normal. The kidneys enhance symmetrically. No solid renal mass is identified. There is no hydronephrosis of either kidney. There is no abdominal aortic aneurysm. The urinary bladder appears grossly unremarkable. The prostate is mildly enlarged. The colonic stool burden is moderate. There is a small amount of fluid in the distal small bowel without pathologic dilation or a transition point, nonspecific but can be seen with enteritis. The appendix is not definitely seen. No pathologic lymphadenopathy is identified by size criteria. No acute osseous abnormality is identified. IMPRESSION: Intrahepatic and extrahepatic biliary dilation. The common bile duct is dilated at 10 mm with abrupt narrowing at the level of the pancreatic head. Further eval uation with MRCP is recommended. Gas within the body of the pancreas, likely within the pancreatic duct. Correlate clinically for recent instrumentation of the biliary tree. Moderate colonic stool burden. Correlate clinically for constipation. Small amount of fluid in the distal small bowel without transition point or pathologic distention. This is nonspecific but can be seen with enteritis. Several scattered nodules in the right lower lobe measuring up to 3 mm. See the Fleischner society guidelines listed below for follow-up reference recommendations. Fleischner Society Guidelines for Incidental Pulmonary Nodules: SOLID NODULES Single low-risk: < 6 mm No follow up. 6-[address] at 6-12 months, then consider CT at 18-24 months. > [address] at 3 months, PET/CT or bx. Single high risk: < [address] at 12 months. 6-[address] at 6-12 months, then consider CT at 18-24 months. > [address] at 3 months, PET/CT or bx. Multiple low risk: < 6 mm No follow up. 6-[address] at 3-6 months, then consider CT at 18-24 months. > [address] at 3-6 months, then consider CT at 18-24 months. Multiple high risk: < [address] at 12 months. 6-[address] at 3-6 months, then CT at 18-24 months. > [address] at 3-6 months, then CT at 18-24 months. SUBSOLID NODULES Ground glass: < 6 mm No follow up. > [address] at 6-12 months, then CT every 2 years for 5 years. Part solid: < 6 mm No follow up. > [address] at 3-6 months. If stable with solid component <6mm, annual CT for 5 years. Multiple: < [address] at 3-6 months. If stable, consider CT at 2 and 4 years. > [address] at 3-6 months. Subsequent based on most suspicious nodule. Notes: Recommendations do not apply to cancer screening, patient with immunosuppression or known primary cancer. Reference: Radiology 2017; Sulemahoevon et al; 000:1-16 Time of 1ST Reevaluation: 19:09 Reevaluation 1ST: Unchanged Patient Education/Counseling: Diagnosis, Treatment Family Education/Counseling: No Family Present SEPSIS Sepsis Screen Date sepsis recognized/suspect: Feb 13, 2025 Time Sepsis recognized/suspect: 1614 Recent Procedure: No On Antibiotic Therapy: No Respiratory Rate >20: No Heart Rate >90: Yes Temp<36 C (96.8 F) or >38.3 C: No SBP <90 or MAP <65 mmHG: No New Acute Mental Status Change: No Is the patient on CPAP, BIPAP,: No Physician Orders Urinalysis (02/13/25 16:15) Electrocardigram (02/13/25 16:15) Ct Ab Pel With Iv Con Only (02/13/25 19:12) Comprehensive Metabolic Panel (02/13/25 22:14) Vital Signs Date Time Temp Pulse Resp B/P (MAP) Pulse Ox O2 Delivery O2 Flow Rate FiO2 02/13/25 20:21 93 20 127/111 02/13/25 20:04 97.7 93 20 127/111 (116) 98 97.7 02/13/25 16:26 87 02/13/25 16:12 97.8 101 20 90/65 100 97.8 Laboratory Tests Test 02/13/25 16:32 White Blood Count 6.4 10^3/uL (4.4-10.8) Medications Medications Dose Ordered Sig/Desean Route Start Time Stop Time Status Last Admin Dose Admin Hydromorphone HCl 1 mg ONCE ONCE IV 02/13/25 19:15 02/13/25 19:16 DC 02/13/25 20:21 Ondansetron HCl 4 mg ONCE ONCE IV 02/13/25 19:15 02/13/25 19:16 DC 02/13/25 20:20 Sodium Chloride 1,000 ml @ 1,000 mls/hr Q1H ONCE IVB 02/13/25 19:15 02/13/25 20:14 DC 02/13/25 20:20 Departure 1 Departure Time of Disposition: 22:17 Impression: Primary Impression: Chronic pancreatitis Additional Impressions: Acute on chronic pancreatitis History of Whipple procedure Intractable abdominal pain Disposition: ADMITTED INPATIENT Admit to: Med Surg Condition: Guarded Comments 55-year-old male with a history of chronic pancreatitis and prior Whipple procedure now with severe abdominal pain. CT inconclusive and they recommend possible MRCP tomorrow. Patient is still in pain on re-evaluation. Patient will need to be admitted for supportive care and further workup. Critical Care Note Critical Care Time?: Yes (35 min-critical care time only) Critical care comment: Total critical care time: Approximately 36 minutes Due to a high probability of clinically significant, life threatening deteriorat ion, the patient required my highest level of preparedness to intervene emergently and I personally spent this critical care time directly and personally managing the patient. This critical care time included obtaining a history; examining the patient; pulse oximetry; ordering and review of studies; arranging urgent treatment with development of a management plan; evaluation of patient's response to treatment; frequent reassessment; and, discussions with other providers. This critical care time was performed to assess and manage the high probability of imminent, life-threatening deterioration that could result in multi-organ failure. It was exclusive of separately billable procedures and treating other patients. Stability Stability form required: No Heart Score Heart Score: Heart Score Response (Comments) Value History N/A 0 EKG N/A 0 Age N/A 0 Risk Factors N/A 0 Troponin N/A 0 Total 0 I personally scribed for NILESH REINOSO MD ([email or web address]) on 02/13/25 at 19:11. Electronically submitted by Lonny Gruber ([email or web address]). I personally scribed for NILESH REINOSO MD ([email or web address]) on 02/13/25 at 22:16. Electronically submitted by Lonny Gruber ([email or web address]). NILESH REINOSO MD Feb 13, 2025 19:11
[2025-02-13] MEDS: ONDANSETRON HCL 4 MG/2 ML VIAL IV ONE (20:20)
[2025-02-13] MEDS: SODIUM CHLORIDE 0.9% 1,000 ML IVB ONE (20:20)
[2025-02-13] MEDS: HYDROmorphone HCL 2 MG/ML VL/or syr IV ONE (20:21)
[2025-02-13] MEDS: IOHEXOL 300 MG/ML 100ML BOTTLE IJ ONE (21:14)
--- NOTE | 2025-02-13 22:10 | DVH ---
COMPUTERIZED TOMOGRAPHY ABDOMEN AND PELVIS WITH CONTRAST REASON FOR EXAM: Abdominal pain COMPARISON: CT CT AB PEL WO CON-NO ORAL OR IV on DOS: 12/22/24, CT CT AB PEL WO CON-NO ORAL OR IV on DOS: 12/06/24, CT CT ABD PELVIS W CON-ORAL IV on DOS: 11/01/24, CT CT AB PEL WO CON-NO ORAL OR IV on DOS: 10/19/24, CT CT AB PEL WITH IV CON ONLY on DOS: 10/09/24 TECHNIQUE: The exam was performed on a Multidetector scanner. Spiral scans were acquired from the diaphragm to the symphysis pubis after administration of IV contrast. 2-D coronal and sagittal reformatted images were provided. Radiation optimization: All CT scans at this facility use at least one of these dose optimization techniques: Automated exposure control mA and/or kV adjustment per patient size (includes targeted exams where dose is matched to clinical indication) or iterative reconstruction. CONTRAST ADMINISTRATION: 100 mL omnipaque 300 intravenously RADIATION DOSE: CTDI: 5 mGy DLP: 262 mGy-cm FINDINGS: There are several scattered nodules in the right lower lobe measuring up to 3 mm. There is no pleural effusion. There is no pericardial effusion. The spleen is not enlarged. The liver is within normal limits for size and contour. There is intrahepatic biliary dilation. No calcified gallstone is identified. The common bile duct is dilated at 10 mm with abrupt narrowing at the level of the pancreatic head. There are coarse calcifications in the head and body of the pancreas consistent with chronic pancreatitis. There is gas within the body of the pancreas, likely within the pancreatic duct. The adrenal glands appear normal. The kidneys enhance symmetrically. No solid renal mass is identified. There is no hydronephrosis of either kidney. There is no abdominal aortic aneurysm. The urinary bladder appears grossly unremarkable. The prostate is mildly enlarged. The colonic stool burden is moderate. There is a small amount of fluid in the distal small bowel without pathologic dilation or a transition point, nonspecific but can be seen with enteritis. The appendix is not definitely seen. No pathologic lymphadenopathy is identified by size criteri a. No acute osseous abnormality is identified. IMPRESSION: Intrahepatic and extrahepatic biliary dilation. The common bile duct is dilated at 10 mm with abrupt narrowing at the level of the pancreatic head. Further evaluation with MRCP is recommended. Gas within the body of the pancreas, likely within the pancreatic duct. Correlate clinically for recent instrumentation of the biliary tree. Moderate colonic stool burden. Correlate clinically for constipation. Small amount of fluid in the distal small bowel without transition point or pathologic distention. This is nonspecific but can be seen with enteritis. Several scattered nodules in the right lower lobe measuring up to 3 mm. See the Fleischner society guidelines listed below for follow-up reference recommendations. Fleischner Society Guidelines for Incidental Pulmonary Nodules: SOLID NODULES Single low-risk: < 6 mm No follow up. 6-[address] at 6-12 months, then consider CT at 18-24 months. > [address] at 3 months, PET/CT or bx. Single high risk: < [address] at 12 months. 6-[address] at 6-12 months, then consider CT at 18-24 months. > [address] at 3 months, PET/CT or bx. Multiple low risk: < 6 mm No follow up. 6-[address] at 3-6 months, then consider CT at 18-24 months. > [address] at 3-6 months, then consider CT at 18-24 months. Multiple high risk: < [address] at 12 months. 6-[address] at 3-6 months, then CT at 18-24 months. > [address] at 3-6 months, then CT at 18-24 months. SUBSOLID NODULES Ground glass: < 6 mm No follow up. > [address] at 6-12 months, then CT every 2 years for 5 years. Part solid: < 6 mm No follow up. > [address] at 3-6 months. If stable with solid component <6mm, annual CT for 5 years. Multiple: < [address] at 3-6 months. If stable, consider CT at 2 and 4 years. > [address] at 3-6 months. Subsequent based on most suspicious nodule. Notes: Recommendations do not apply to cancer screening, patient with immunosuppression or known primary cancer. Reference: Radiology 2017; Sulemahoevon et al; 000:1-16
[2025-02-13 22:43] LABS: Alanine Aminotransferase 9 U/L (7-40); Albumin 3.7 g/dL (3.2-4.8); Alkaline Phosphatase 129 U/L (46-116); Anion Gap 5 (5-15); BUN/Creatinine Ratio 16.4 (10.0-20.0); Blood Urea Nitrogen 10 mg/dL (9-23); Calcium 8.9 mg/dL (8.7-10.4); Carbon Dioxide 26 mmol/L (20-31); Chloride 103 mmol/L (98-107); Glucose 87 mg/dL (74-106); Potassium 4.1 mmol/L (3.5-5.1); Sodium 134 mmol/L (136-145); Total Protein 6.8 g/dL (5.7-8.2)
[2025-02-13 22:44] LABS: Bilirubin, Total 0.2 mg/dL (0.2-1.0)
[2025-02-13] MEDS ORDERED: HYDROcodone-ACET 5/325MG TAB PO PRN (23:45)
--- NOTE | 2025-02-13 23:47 | DVHHPRES ---
History of Present Illness Resident Creating Document: TREMAYNE DELGADO RESIDENT History of Present Illness This is a 55-year-old male with past medical history of pancreatic head mass with biliary dilatation, history of Whipple procedure 2011, posttraumatic biliary dysfunction , chronic pancreatitis, ETOH use came to ER with a complaint of epigastric pain which is worsen today morning 8/10 intensity, dull, constant, radiates to back, aggravated on lying position and mildly relieved on sitting bending forward position. Patient recent admission January [id number] with similar complain AND CT abdomen and pelvis with IV contrast: Intrahepatic and extrahepatic biliary dilation. The common bile duct is dilated at 10 mm with abrupt narrowing at the level of the pancreatic head. Gas within the body of the pancreas, likely within the pancreatic duct. . CT abdomen 11/01 showing Heterogeneous lesion/ mass in the pancreatic head region that is hypoenhancing measuring 3.1 x 3.2 cm concerning for potential pancreatic mass /neoplasm. , CA 19 9-80. Patient currently denies any fever, chest pain, SOB, headache, dysuria or any other acute distress. Past medical history: As above Past surgical history: Whipple operation Personal history: ETOH used stopped 3 years ago, current smoker 10 stick per day, denies any illicit drug use Family history: Nothing contributory Allergy: No known allergy PCP: Dr. Barrett Home medication: Creon pancreatic enzymes, [place]. Review of Systems Constitutional: Yes: Malaise; No: Fever, Chills, Sweats, Weakness, Other Eyes: No: Pain, Vision change, Conjunctivae inflammation, Eyelid inflammation, Other, Redness ENT: No: Ear pain, Ear discharge, Nose pain, Nose discharge, Nose congestion, Mouth pain, Mouth swelling, Throat pain, Throat swelling, Other Respiratory: No: Cough, Dry, Shortness of breath, SOB with excertion, Wheezing, Hemoptysis, Pleuritic Pain, Sputum, Wheezing, Other Cardiovascular: No: Chest Pain, Palpitations, Orthopnea, Paroxysmal Noc. Dyspnea, Edema, Lt Headedness, Other Gastrointestinal: Abdominal Pain; No: Nausea, Vomiting, Diarrhea, Constipation, Melena, Hematochezia, Other Genitourinary: No Dysuria, No Frequency, No Incontinence, No Hematuria, No Retention, No Other Musculoskeletal: No: other, neck pain, shoulder pain, arm pain, back pain, hand pain, leg pain, foot pain Skin: No: Rash, Lesions, Jaundice, Bruising, Other Neurological: No: Weakness, Numbness, Incoordination, Change in speech, Confusion, Seizures, Other Allergies: Coded Allergies: NO KNOWN ALLERGIES (Unverified , 02/16/24) Exam Vital Signs Vital Signs Date Time Temp Pulse Resp B/P (MAP) Pulse Ox O2 Delivery O2 Flow Rate FiO2 02/13/25 20:21 93 20 127/111 02/13/25 20:04 97.7 98 97.7 General Appearance: Alert, Oriented X3, mild distress HEENT: Atraumatic, PERRLA, EOMI Respiratory: Clear to auscultation, Normal air movement Cardiovascular: Regular rate, Normal S1, Normal S2, No murmurs Abdominal: Normal bowel sounds, Soft, No hepatospenomegaly, Other (Tender on deep palpation in epigastric region) Extremities: No clubbing, No cyanosis, No edema, Normal pulses Skin: No rashes, No breakdown Neuro: Normal gait, Normal speech, Strength at 5/5 X4 ext, Normal tone, Sensation intact, Cranial nerves 3-12 NL Psych/Mental Status: Mental status NL, Mood NL Labs/Xrays Labs Test 02/13/25 22:22 02/13/25 16:32 Range/Units Sodium Level 134 L 136-145 mmol/L Potassium Level 4.1 3.5-5.1 mmol/L Chloride Level 103 98-107 mmol/L Carbon Dioxide Level 26 20-31 mmol/L Anion Gap 5 5-15 Blood Urea Nitrogen 10 9-23 mg/dL Creatinine 0.61 L 0.700-1.30 mg/dL Glomerular Filtration Rate Calc 113 >90 mL/min BUN/Creatinine Ratio 16.4 10.0-20.0 Serum Glucose 87 74-106 mg/dL Calcium Level 8.9 8.7-10.4 mg/dL Total Bilirubin 0.2 0.2-1.0 mg/dL Aspartate Amino Transferase (AST) 13 13-40 U/L Alanine Aminotransferase (ALT) 9 7-40 U/L Alkaline Phosphatase 129 H 46-116 U/L Total Protein 6.8 5.7-8.2 g/dL Albumin 3.7 3.2-4.8 g/dL White Blood Count 6.4 4.4-10.8 10^3/uL Red Blood Count 3.81 L 4.5-5.90 10^6/uL Hemoglobin 12.3 L 13.5-17.5 g/dL Hematocrit 36.5 L 41.0-53.0 % Mean Corpuscular Volume 95.9 80.0-100.0 fL Mean Corpuscular Hemoglobin 32.4 H 28.0-32.0 pg Mean Corpuscular Hemoglobin Concent 33.8 32.0-36.0 g/dL Red Cell Distribution Width 13.9 11.8-14.3 % Platelet Count 508 H 140-450 10^3/uL Mean Platelet Volume 6.5 L 6.9-10.8 fL Neutrophils (%) (Auto) 65.8 37.0-80.0 % Lymphocytes (%) (Auto) 25.4 10.0-50.0 % Monocytes (%) (Auto) 7.7 0.0-12.0 % Eosinophils (%) (Auto) 0.6 0.0-7.0 % Basophils (%) (Auto) 0.5 0.0-2.0 % Neutrophils # (Auto) 4.2 1.6-8.6 10 ^3/uL Lymphocytes # (Auto) 1.6 0.4-5.4 10 ^3/uL Monocytes # (Auto) 0.5 0-1.3 10 ^3/uL Eosinophils # (Auto) 0 0-0.8 10 ^3/uL Basophils # (Auto) 0 0-0.2 10 ^3/uL Nucleated Red Blood Cells 0.1 % Lipase 29 12-53 U/L SEPSIS Sepsis Screen Date sepsis recognized/suspect: Feb 13, 2025 Time Sepsis recognized/suspect: 1614 Recent Procedure: No On Antibiotic Therapy: No Respiratory Rate >20: No Heart Rate >90: Yes Temp<36 C (96.8 F) or >38.3 C: No SBP <90 or MAP <65 mmHG: No New Acute Mental Status Change: No Is the patient on CPAP, BIPAP,: No Physician Orders Urinalysis (02/13/25 16:15) Electrocardigram (02/13/25 16:15) Ct Ab Pel With Iv Con Only (02/13/25 19:12) Vital Signs Date Time Temp Pulse Resp B/P (MAP) Pulse Ox O2 Delivery O2 Flow Rate FiO2 02/13/25 20:21 93 20 127/111 02/13/25 20:04 97.7 93 20 127/111 (116) 98 97.7 02/13/25 16:26 87 02/13/25 16:12 97.8 101 20 90/65 100 97.8 Laboratory Tests Test 02/13/25 16:32 White Blood Count 6.4 10^3/uL (4.4-10.8) Medications Medications Dose Ordered Sig/Desean Route Start Time Stop Time Status Last Admin Dose Admin Hydromorphone HCl 1 mg ONCE ONCE IV 02/13/25 19:15 02/13/25 19:16 DC 02/13/25 20:21 1 MG Ondansetron HCl 4 mg ONCE ONCE IV 02/13/25 19:15 02/13/25 19:16 DC 02/13/25 20:20 4 MG Sodium Chloride 1,000 ml @ 1,000 mls/hr Q1H ONCE IVB 02/13/25 19:15 02/13/25 20:14 DC 02/13/25 20:20 1,000 MLS/HR Assessment/Plan Assessment/Plan Intractable abdominal pain due to acute on chronic pancreatitis Common bile duct dilatation History of ETOH use disorder vitals sign: tachycardic In ER patient received NSS, Dilaudid,ondansetron CT abdomen and pelvis with IV contrast: Intrahepatic and extrahepatic biliary dilation. The common bile duct is dilated at 10 mm with abrupt narrowing at the level of the pancreatic head. Gas within the body of the pancreas, likely within the pancreatic duct. Lipase 29 EKG Clear liquid diet [place] IVF MRCP Monitor labs Anemia chronic disease hemoglobin 12.3, HCT 36.5, MCV 95.9, RDW 13.9 Thrombocytosis likely hemoconcentration platelet 508, follow-up CBC Hyponatremia sodium 135> 134 BMP Elevated alkaline phosphatase alkaline phosphatase level 129, follow labs Several scattered lung nodules ct showed -Several scattered nodules in the right lower lobe measuring up to 3 mm. Current smoker Counseling done>13 minutes spent. Diet: Clear liquid GI prophylaxis: Pantoprazole DVT prophylaxis: Lovenox Goals of care discussions. More than 29 minute spent with patient. Full code status Case discussed with Dr. Barrett Plan discussed with: Patient, Other (Nurse) Date of Service: Feb 13, 2025 Billing Provider: MYRNA BARRETT MD Common Visit Codes: [id number] INP/OBS CARE (HIGH) Secondary Visit Codes: [id number] CARE PLAN 30 MINUTES TREMAYNE DELGADO RESIDENT Feb 13, 2025 23:47
[2025-02-14 00:24] LABS: Urine Protein, UAD 1+ (Negative)
[2025-02-14 00:41] VITALS: PULSE 88; RESP 16; O2SAT 98
[2025-02-14] MEDS: SODIUM CHLORIDE 0.9% 1,000 ML IV SCH (00:44)
[2025-02-14] MEDS: HYDROcodone-ACET 10/325MG TAB PO PRN (03:02)
--- NOTE | 2025-02-14 13:29 | DVHPN2 ---
Subjective I am assuming the care of the patient from today onwards. Patient was seen in [facility] complaining of left upper quadrant abdominal pain worsening for last one week. Patient does have known history of Whipple procedure in the past in 2011. Changes from previous H/P or p: No Changes Eyes: No Pain, No Vision change, No Conjunctivae inflammation, No Eyelid inflammation, No Other, No Redness ENT: No Ear pain, No Ear discharge, No Nose pain, No Nose discharge, No Nose congestion, No Mouth pain, No Mouth swelling, No Throat pain, No Throat swelling, No Other Cardiovascular: No Chest Pain, No Palpitations, No Orthopnea, No Paroxysmal Noc. Dyspnea, No Edema, No Lt Headedness, No Other Respiratory: No Cough, No Dry, No Shortness of breath, No SOB with excertion, No Wheezing, No Hemoptysis, No Pleuritic Pain, No Sputum, No Other Gastrointestinal: No Nausea, No Vomiting; Abdominal Pain; No Diarrhea, No Constipation, No Melena, No Hematochezia, No Other Genitourinary: No Dysuria, No Frequency, No Incontinence, No Hematuria, No Retention, No Other Musculoskeletal: No other, No neck pain, No shoulder pain, No arm pain, No back pain, No hand pain, No leg pain, No foot pain Skin: No Rash, No Lesions, No Jaundice, No Bruising, No Other Objective Vitals Vital Signs Date Time Temp Pulse Resp B/P (MAP) Pulse Ox O2 Delivery O2 Flow Rate FiO2 02/14/25 12:00 98.2 88 16 87/62 (70) 96 98.2 02/14/25 00:41 Room Air* 0 21 Exam HEENT pupils are reactive Neck is supple CV is S1-S2 regular rate and rhythm Diminished breath sounds bases GI positive bowel sounds, positive tenderness in the epigastric and left upper quadrant with a minimal guarding no rigidity Extremity no edema [employer] no motor deficit Medications Current Medications Medications Dose Ordered Sig/Desean Route Start Time Stop Time Status Last Admin Dose Admin Sodium Chloride 1,000 ml @ 120 mls/hr Q8H20M IV 02/13/25 23:45 Acetaminophen/ Hydrocodone Bitart 1 tab Q4HP PRN PO 02/14/25 01:15 02/14/25 11:45 1 TAB Laboratory Results Laboratory Tests 02/13/25 16:32 02/13/25 22:22 Chemistry Test 02/13/25 16:32 02/13/25 22:22 Calcium Level 9.7 mg/dL (8.7-10.4) 8.9 mg/dL (8.7-10.4) Albumin 3.7 g/dL (3.2-4.8) Total Protein 6.8 g/dL (5.7-8.2) Lipid panel Test 02/13/25 16:32 Lipase 29 U/L (12-53) LFT Test 02/13/25 22:22 Alanine Aminotransferase (ALT) 9 U/L (7-40) Alkaline Phosphatase 129 U/L (46-116) H Aspartate Amino Transferase (AST) 13 U/L (13-40) Total Bilirubin 0.2 mg/dL (0.2-1.0) Urinalysis Test 02/14/25 00:12 Urine Color Yellow (Yellow) Urine Clarity Clear (Clear) Urine pH 6.5 (5.0-9.0) Urine Specific [place] > 1.050 (1.001-1.035) Urine Protein 1+ (Negative) H Urine Ketones Negative (Negative) Urine Blood Negative /uL (Negative) Urine Nitrite Negative (Negative) Urine Bilirubin Negative (Negative) Urine Urobilinogen Normal mg/dL (Negative) Urine Leukocyte Esterase Negative /uL (Negative) Urine RBC 1 /hpf (0 - 3) Urine Microscopic WBC < 1 /HPF (0-3) Urine Squamous Epithelial Cells Few /hpf (<5) Urine Bacteria None seen /hpf (None Seen) Urine Glucose Normal mg/dL (Normal) Assessment/Plan Assessment/Plan 55-year-old male with a known history of pancreatic head mass in the past status post Whipple procedure presented to the hospital with the acute on chronic abdominal pain found to have 1. Intractable abdominal pain suspect secondary to chronic pancreatitis 2. Pancreatic head mass with a CBD dilatation as well as intrahepatic and extrahepatic biliary dilatation ruled out pancreatic lesion, MRCP ordered 3. Chronic tobacco use disorder 4. Previous history of Whipple procedure in 2011 5. Previous history of alcohol use quit three years ago 6. Scattered nodules in the right lung lower lobe -pain meds as needed, MRCP, GI consulted Plan discussed with: Patient Problem List: (1) Nausea and vomiting (2) Pancreatic mass (3) Pancreatic lesion Date of Service: Feb 14, 2025 Billing Provider: GERMAINE HERNÁNDEZ MD Common Visit Codes: [id number] INP/OBS CARE(HIGH) GERMAINE HERNÁNDEZ MD Feb 14, 2025 13:29
[2025-02-14 18:31] VITALS: BP 109/75; PULSE 86; PULSE 88; RESP 18; TEMP 97.8; O2SAT 95
[2025-02-14 21:00] VITALS: BP 99/69; PULSE 90; RESP 19; TEMP 97.9; O2SAT 92
[2025-02-14] MEDS: KETOROLAC TROMETH 30 MG/ML 1ML VIAL IV ONE (23:23)
[2025-02-15 05:00] VITALS: BP 95/64; PULSE 79; RESP 18; TEMP 97.3; O2SAT 95
--- NOTE | 2025-02-15 07:24 | ECG ---
[facility] Test Date: 2025-02-13 Test Time: 16:26:20 Pat Name: BC STERLING Department: ED Room: 0280 Gender: M Undercover Cop: YOLANDA : 1970 Requested By: NATALEE ROMEO Order Number: [id number] Reading MD: Jonatan Ornelas Measurements Intervals [place] Rate: 87 P: 86 VA: 131 QRS: 82 QRSD: 91 T: 90 QT: 366 QTc: 441 Interpretive Statements Sinus rhythm Right atrial enlargement Low voltage, precordial leads Consider right ventricular hypertrophy Electronically Signed On 02-16-2025 15:01:10 PST by Jonatan Ornelas Please click the below link to view image of tracing.
[2025-02-15 08:52] VITALS: BP 104/66; PULSE 79; RESP 12; TEMP 98.4; O2SAT 91
--- NOTE | 2025-02-15 17:17 | DVHPN2 ---
Subjective still having pain Reviewed: H&P Changes from previous H/P or p: No Changes Eyes: No Pain, No Vision change, No Conjunctivae inflammation, No Eyelid inflammation, No Other, No Redness ENT: No Ear pain, No Ear discharge, No Nose pain, No Nose discharge, No Nose congestion, No Mouth pain, No Mouth swelling, No Throat pain, No Throat swelling, No Other Cardiovascular: No Chest Pain, No Palpitations, No Orthopnea, No Paroxysmal Noc. Dyspnea, No Edema, No Lt Headedness, No Other Respiratory: No Cough, No Dry, No Shortness of breath, No SOB with excertion, No Wheezing, No Hemoptysis, No Pleuritic Pain, No Sputum, No Other Gastrointestinal: No Nausea, No Vomiting; Abdominal Pain; No Diarrhea, No Constipation, No Melena, No Hematochezia, No Other Genitourinary: No Dysuria, No Frequency, No Incontinence, No Hematuria, No Retention, No Other Musculoskeletal: No other, No neck pain, No shoulder pain, No arm pain, No back pain, No hand pain, No leg pain, No foot pain Skin: No Rash, No Lesions, No Jaundice, No Bruising, No Other Objective Vitals Vital Signs Date Time Temp Pulse Resp B/P (MAP) Pulse Ox O2 Delivery O2 Flow Rate FiO2 02/15/25 08:52 98.4 79 12 104/66 (79) 91 98.4 02/15/25 08:00 Room Air* 0 21 Intake/Output Intake and Output 02/15/25 05:00 Intake Total 236 ml Output Total 300 ml Balance -64 ml Intake Oral 236 ml Output Urine Total 300 ml General Appearance: Alert, Oriented X3 HEENT: Atraumatic Lungs: Clear to auscultation Cardiovascular: Regular rate, Normal S1, Normal S2 Abdomen: Normal bowel sounds Medications Current Medications Medications Dose Ordered Sig/Desean Route Start Time Stop Time Status Last Admin Dose Admin Sodium Chloride 1,000 ml @ 120 mls/hr Q8H20M IV 02/13/25 23:45 02/15/25 09:15 120 MLS/HR Acetaminophen/ Hydrocodone Bitart 1 tab Q4HP PRN PO 02/14/25 01:15 02/15/25 16:37 1 TAB Laboratory Results Laboratory Tests 02/13/25 16:32 02/13/25 22:22 Urinalysis Test 02/14/25 00:12 Urine Color Yellow (Yellow) Urine Clarity Clear (Clear) Urine pH 6.5 (5.0-9.0) Urine Specific [place] > 1.050 (1.001-1.035) Urine Protein 1+ (Negative) H Urine Ketones Negative (Negative) Urine Blood Negative /uL (Negative) Urine Nitrite Negative (Negative) Urine Bilirubin Negative (Negative) Urine Urobilinogen Normal mg/dL (Negative) Urine Leukocyte Esterase Negative /uL (Negative) Urine RBC 1 /hpf (0 - 3) Urine Microscopic WBC < 1 /HPF (0-3) Urine Squamous Epithelial Cells Few /hpf (<5) Urine Bacteria None seen /hpf (None Seen) Urine Glucose Normal mg/dL (Normal) Assessment/Plan Assessment/Plan 55-year-old male with a known history of pancreatic head mass in the past status post Whipple procedure presented to the hospital with the acute on chronic abdominal pain found to have 1. Intractable abdominal pain suspect secondary to chronic pancreatitis 2. Pancreatic head mass with a CBD dilatation as well as intrahepatic and extrahepatic biliary dilatation ruled out pancreatic lesion, MRCP ordered 3. Chronic tobacco use disorder 4. Previous history of Whipple procedure in 2011 5. Previous history of alcohol use quit three years ago 6. Scattered nodules in the right lung lower lobe -pain meds as needed, MRCP, GI consulted Plan discussed with: Patient Date of Service: Feb 15, 2025 Billing Provider: HARRY GAMBINO MD Common Visit Codes: [id number] INP/OBS CARE(HIGH) HARRY GAMBINO MD Feb 15, 2025 17:17
[2025-02-15] MEDS ORDERED: KETOROLAC TROMETH 30 MG/ML 1ML VIAL IV PRN (18:00)
== END 2025-02-15 18:02 | disposition left against medical advice (07) | DRG 282 ==
LOC: ER 16:11 → OVERFLOW 23:45 → WEST WING 02-15 12:48
PROVIDERS: ADMIT Hospitalist; ATTEND Hospitalist
DX: K85.90 Acute pancreatitis without necrosis or infection, unspecified (principal); D63.8 Anemia in other chronic diseases classified elsewhere; K83.8 Other specified diseases of biliary tract; E87.1 Hypo-osmolality and hyponatremia; K86.1 Other chronic pancreatitis; D75.839 Thrombocytosis, unspecified; F41.9 Anxiety disorder, unspecified; F17.210 Nicotine dependence, cigarettes, uncomplicated; R74.8 Abnormal levels of other serum enzymes; Z53.29 Procedure and treatment not carried out because of patient's decision for other reasons; Z71.6 Tobacco abuse counseling; Z90.411 Acquired partial absence of pancreas
CPT/HCPCS: 36415; 74177; 80048; 80053; 81001; 83690; 85025; 93005; 96361; 96374; 96375; 99291; G0378; J1885; J2405

== ENCOUNTER 2025-03-13 16:08 | Emergency (ER) | payer MEDICAID ==
[~2025-03-13] VITALS: Ht 167.6 cm; Wt 46.1 kg
[2025-03-13 18:17] VITALS: TEMP 97.4
--- NOTE | 2025-03-13 18:46 | ED.PDOC ---
GI ASSESSMENT HPI Comments 55-year-old male who came to ER for abdominal pain. Patient has history of chronic pancreatitis, status post Whipple's procedure. In the past few days he has been having epigastric abdominal pain with bouts of nausea and vomiting. [place] taken has offered no relief Chief Complaint: Abdominal Pain Time Seen by MD: 18:46 Primary Care Provider: MARK Cody Notes: Nurses Notes Allergies: Coded Allergies: NO KNOWN ALLERGIES (Unverified , 02/16/24) Home Meds Active Scripts Ondansetron HCl (Ondansetron Hydrochloride) 8 Mg Tab, 8 MG PO Q6HP PRN, #30 TAB Prov:NILESH REINOSO MD 03/13/25 Gabapentin (Once-Daily) (Gabapentin) 300 Mg Tab, 300 MG PO Q6HP PRN, #60 TAB Prov:NILESH REINOSO MD 03/13/25 Lactulose (Lactulose) 10 Gm/15 Ml Molly, 10 GM PO DAILYP PRN for 10 Days, #10 ML 0 Refills Prov:BERNIE ALEMAN RESIDENT 12/23/24 Ondansetron Odt 4MG Tab (ZOFRAN PO) 4 Mg Tb, 4 MG PO TIDP PRN for 7 Days, #21 TAB 0 Refills ODT TAB-DISSOLVE IN MOUTH, THEN SWALLOW Prov:ARMIN PORRAS MD 12/07/24 Dicyclomine Hcl (BENTYL CAPSULE) 10 Mg Cp, 1 CAP PO TID PRN, #30 CAP 0 Refills Prov:ARMIN PORRAS MD 12/07/24 Reported Medications Nicotine (Nicotine Transdermal Syst) 21 Mg/24 Hr Dis, TOP 11/01/24 Hydrocodone-Acetaminophen (Hydrocodone/Acetaminophen 10-325 mg) 1 Tab Tab, 1 TAB PO Q4HP PRN for PAIN SCALE 7 THRU 10 11/01/24 Pancreatic Enzymes (Creon) 12,000 Unt Cap, 49077 UNT PO TID, CAP 11/01/24 Information Source: Patient Mode of Arrival: Ambulatory Timing: Hours Past Medical History PAST MEDICAL HISTORY: Anxiety Past Medical History (Other): Chronic pancreatitis Surgical History: Hernia Repair Surgical History (Other): Whipple's procedure Family History Family History: Reviewed,noncontributory to illness, Unknown Social History Smoker: Cigarettes Alcohol: Sober Drugs: Denies Drug Use Lives In: Home Constitutional: denies: chills, diaphoresis, fatigue, fever, malaise, sweats, weakness, others EENTM: denies: blurred vision, double vision, ear bleeding, ear discharge, ear drainage, ear pain, ear ringing, eye pain, eye redness, hearing loss, mouth pain, mouth swelling, nasal discharge, nose bleeding, nose congestion, nose pain, photophobia, tearing, throat pain, throat swelling, voice changes, others Respiratory: denies: cough, hemoptysis, orthopnea, SOB at rest, shortness of breath, SOB with excertion, stridor, wheezing, others Cardiovascular: denies: chest pain, dizzy spells, diaphoresis, Dyspnea on exertion, edema, irregular heart beat, left arm pain, lightheadedness, palpitations, PND, syncope, others Gastrointestinal: reports: abdominal pain, nausea, vomiting; denies: abdomen distended, blood streaked bowels, constipated, diarrhea, dysphagia, difficulty swallowing, hematemesis, melena, poor appetite, poor fluid intake, rectal bleeding, rectal pain, others Genitourinary: denies: burning, dysuria, flank pain, frequency, hematuria, incontinence, penile discharge, penile sore, pain, testicle pain, testicle swelling, urgency, others Neurological: denies: dizziness, fainting, headache, left sided numbness, left sided weakness, numbness, paresthesia, pre-existing deficit, right sided numbness, right sided weakness, seizure, speech problems, tingling, tremors, weakness, others Musculoskeletal: denies: back pain, gout, joint pain, joint swelling, muscle pain, muscle stiffness, neck pain, others Integumetry: denies: bruises, change in color, change in hair/nails, dryness, laceration, lesions, lumps, rash, wounds, others Allergic/Immunocompromised: denies: Difficulty Healing, Frequent Infections, Hives, Itching, others Hematologic/Lymphatic: denies: anemia, blood clots, easy bleeding, easy bruising, swollen glands, others Endocrine: denies: excessive hunger, excessive sweating, excessive thirst, excessive urination, flushing, intolerance to cold, intolerance to heat, unexplained weight gain, unexplained weight loss, others Psychiatric: denies: anxiety, bipolar disorder, depression, hopeless, panic disorder, schizophrenia, sleepless, suicidal, others Physical Exam General Appearance: No Apparent Distress, Normal HEENT: Normal ENT Inspection, Pharynx Normal, TMs Normal Neck: Full Range of Motion, Non-Tender, Normal, Normal Inspection Respiratory: Chest Non-Tender, Lungs Clear, No Accessory Muscle Use, No Respiratory Distress, Normal Breath Sounds Cardiovascular: No Edema, No JVD, No Murmur, No Gallop, Normal Peripheral Pul ses, Regular Rate/Rhythm Breast Exam: Deferred Gastrointestinal: Epigastric, No Organomegaly, No Pulsatile Mass, Normal Bowel Sounds, Soft, Tenderness Genitalia: Deferred Pelvic: Deferred Rectal: Deferred Extremities: No calf tenderness, Normal capillary refill, Normal inspection, Normal range of motion, Non-tender, No pedal edema Musculoskeletal : Apperance: Normal Neurologic: Alert, clinical counselor II-XII nml as Tested, No Motor Deficits, Normal Affect, Normal Mood, No Sensory Deficits Cerebellar Function: Normal Reflexes: Normal Skin: Dry, Normal Color, Warm Lymphatic: No Adenopathy Was a procedure done? Was a procedure done?: No GI differential Dx Differential Diagnosis: Diverticular disease, Gastritis/PUD, Gastroenteritis, Pancreatitis, UTI, Dehydration X-Ray, Labs, Meds, VS Vital Signs Date Time Temp Pulse Resp B/P (MAP) Pulse Ox O2 Delivery O2 Flow Rate FiO2 03/13/25 21:00 86 16 93/63 (73) 98 03/13/25 21:00 86 16 93/63 03/13/25 20:29 82 16 108/60 03/13/25 19:34 84 16 108/60 (76) 95 03/13/25 18:17 97.4 86 16 142/77 (98) 100 97.4 03/13/25 16:16 97.9 84 16 98/69 96 97.9 Lab Test 03/13/25 18:41 Range/Units White Blood Count 9.0 4.4-10.8 10^3/uL Red Blood Count 4.33 L 4.5-5.90 10^6/uL Hemoglobin 13.7 13.5-17.5 g/dL Hematocrit 41.4 41.0-53.0 % Mean Corpuscular Volume 95.6 80.0-100.0 fL Mean Corpuscular Hemoglobin 31.7 28.0-32.0 pg Mean Corpuscular Hemoglobin Concent 33.1 32.0-36.0 g/dL Red Cell Distribution Width 15.0 H 11.8-14.3 % Platelet Count 511 H 140-450 10^3/uL Mean Platelet Volume 6.6 L 6.9-10.8 fL Neutrophils (%) (Auto) 61.8 37.0-80.0 % Lymphocytes (%) (Auto) 29.1 10.0-50.0 % Monocytes (%) (Auto) 6.5 0.0-12.0 % Eosinophils (%) (Auto) 2.1 0.0-7.0 % Basophils (%) (Auto) 0.5 0.0-2.0 % Neutrophils # (Auto) 5.6 1.6-8.6 10 ^3/uL Lymphocytes # (Auto) 2.6 0.4-5.4 10 ^3/uL Monocytes # (Auto) 0.6 0-1.3 10 ^3/uL Eosinophils # (Auto) 0.2 0-0.8 10 ^3/uL Basophils # (Auto) 0 0-0.2 10 ^3/uL Nucleated Red Blood Cells 0.1 % Sodium Level 132 L 136-145 mmol/L Potassium Level 4.0 3.5-5.1 mmol/L Chloride Level 100 98-107 mmol/L Carbon Dioxide Level 25 20-31 mmol/L Anion Gap 7 5-15 Blood Urea Nitrogen 13 9-23 mg/dL Creatinine 0.62 L 0.700-1.30 mg/dL Glomerular Filtration Rate Calc 112 >90 mL/min BUN/Creatinine Ratio 21.0 H 10.0-20.0 Serum Glucose 131 H 74-106 mg/dL Calcium Level 9.7 8.7-10.4 mg/dL Total Bilirubin 0.2 0.2-1.0 mg/dL Aspartate Amino Transferase (AST) 18 13-40 U/L Alanine Aminotransferase (ALT) 12 7-40 U/L Alkaline Phosphatase 154 H 46-116 U/L Total Protein 7.4 5.7-8.2 g/dL Albumin 4.0 3.2-4.8 g/dL Lipase 29 12-53 U/L Current Medications Medications (Trade) Dose Ordered Sig/Desean Route Start Time Stop Time Status Last Admin Ondansetron HCl (Zofran Po) 8 mg ONCE ONCE PO 03/13/25 19:00 03/13/25 19:01 DC 03/13/25 19:41 Hydromorphone HCl (Dilaudid Injection) 1 mg ONCE ONCE IM 03/13/25 19:45 03/13/25 19:49 DC 03/13/25 20:29 Ketorolac Tromethamine (Toradol Injection) 30 mg ONCE ONCE IM 03/13/25 22:45 03/13/25 22:46 DC 03/13/25 22:47 Time of 1ST Reevaluation: 18:44 Reevaluation 1ST: Unchanged Patient Education/Counseling: Diagnosis, Treatment Family Education/Counseling: No Family Present SEPSIS Sepsis Screen Date sepsis recognized/suspect: Mar 13, 2025 Time Sepsis recognized/suspect: 1826 Recent Procedure: No On Antibiotic Therapy: No Respiratory Rate >20: No Heart Rate >90: No Temp<36 C (96.8 F) or >38.3 C: No SBP <90 or MAP <65 mmHG: No New Acute Mental Status Change: No Is the patient on CPAP, BIPAP,: No Physician Orders Urinalysis (03/13/25 18:22) Ct Ab Pel Wo Con-No Oral Or Iv (03/13/25 18:22) Vital Signs Date Time Temp Pulse Resp B/P (MAP) Pulse Ox O2 Delivery O2 Flow Rate FiO2 03/13/25 21:00 86 16 93/63 (73) 98 03/13/25 21:00 86 16 93/63 03/13/25 20:29 82 16 108/60 03/13/25 19:34 84 16 108/60 (76) 95 03/13/25 18:17 97.4 86 16 142/77 (98) 100 97.4 03/13/25 16:16 97.9 84 16 98/69 96 97.9 Laboratory Tests Test 03/13/25 18:41 White Blood Count 9.0 10^3/uL (4.4-10.8) Medications Medications Dose Ordered Sig/Desean Route Start Time Stop Time Status Last Admin Dose Admin Hydromorphone HCl 1 mg ONCE ONCE IM 03/13/25 19:45 03/13/25 19:49 DC 03/13/25 20:29 Ketorolac Tromethamine 30 mg ONCE ONCE IM 03/13/25 22:45 03/13/25 22:46 DC 03/13/25 22:47 Ondansetron HCl 8 mg ONCE ONCE PO 03/13/25 19:00 03/13/25 19:01 DC 03/13/25 19:41 Departure 1 Departure Time of Disposition: 20:30 Impression: Primary Impression: Acute abdominal pain Additional Impression: Acute on chronic pancreatitis Disposition: HOME / SELF CARE / HOMELESS Condition: Stable e-Prescriptions Ondansetron HCl (Ondansetron Hydrochloride) 8 Mg Tab 8 MG PO Q6HP PRN, #30 TAB Prov: NILESH REINOSO MD 03/13/25 Gabapentin (Once-Daily) (Gabapentin) 300 Mg Tab 300 MG PO Q6HP PRN, #60 TAB Prov: NILESH REINOSO MD 03/13/25 Discharged With: Self Critical Care Note Critical Care Time?: No Stability Stability form required: No Heart Score Heart Score: Heart Score Response (Comments) Value History N/A 0 EKG N/A 0 Age N/A 0 Risk Factors N/A 0 Troponin N/A 0 Total 0 I personally scribed for NILESH REINOSO MD ([email or web address]) on 03/13/25 at 18:46. Electronically submitted by Lonny Gruber ([email or web address]). NILESH REINOSO MD Mar 13, 2025 18:46
[2025-03-13 18:52] LABS: Hematocrit 41.4 % (41.0-53.0); Hemoglobin 13.7 g/dL (13.5-17.5); Mean Corpuscular Hemoglobin 31.7 pg (28.0-32.0); Mean Corpuscular Volume 95.6 fL (80.0-100.0); Nucleated Red Blood Cells % 0.1 %
[2025-03-13] MEDS ORDERED: HYDROmorphone HCL 2 MG/ML VL/or syr IM ONE (19:00)
[2025-03-13 19:06] LABS: Alanine Aminotransferase 12 U/L (7-40); Albumin 4.0 g/dL (3.2-4.8); Anion Gap 7 (5-15); BUN/Creatinine Ratio 21.0 (10.0-20.0); Blood Urea Nitrogen 13 mg/dL (9-23); Calcium 9.7 mg/dL (8.7-10.4); Carbon Dioxide 25 mmol/L (20-31); Chloride 100 mmol/L (98-107); Lipase 29 U/L (12-53); Potassium 4.0 mmol/L (3.5-5.1); Total Protein 7.4 g/dL (5.7-8.2)
[2025-03-13 19:07] LABS: Alkaline Phosphatase 154 U/L (46-116); Bilirubin, Total 0.2 mg/dL (0.2-1.0); Glucose 131 mg/dL (74-106); Sodium 132 mmol/L (136-145)
[2025-03-13] MEDS: ONDANSETRON ODT 4 MG TAB PO ONE (19:41)
[2025-03-13] MEDS: HYDROmorphone HCL 2 MG/ML VL/or syr IM ONE (20:29)
[2025-03-13 21:00] VITALS: BP 93/63; PULSE 86; RESP 16; O2SAT 98
--- NOTE | 2025-03-13 21:45 | DVH ---
EXAM: CT CT AB PEL WO CON-NO ORAL OR IV History: flank pain Comparison Study: CT CT AB PEL WO CON-NO ORAL OR IV on DOS: 12/22/24, CT CT AB PEL WO CON-NO ORAL OR IV on DOS: 12/06/24, CT CT AB PEL WO CON-NO ORAL OR IV on DOS: 10/19/24 TECHNIQUE: Multidetector CT of the abdomen and pelvis without IV contrast. Axial, coronal and sagittal multiplanar reformats were obtained from the axial data set by the technologist. Radiation Dose Information: CT Dose: CTDI volume is 5.1 mGy. Dose-length product is 3.92 mGy*cm FINDINGS: Bibasilar atelectasis with mild Basilar peribronchial wall thickening. Partially visualized heart is unremarkable. Hyperinflation of the lung bases. Minimal intrahepatic biliary ductal dilatation with mild dilatation of the common bile duct up to 7 mm an abrupt cutoff of the common bile duct over the pancreatic head region with heterogeneous mass with foci of calcification. Spleen, adrenal glands unremarkable. Fullness of the pancreatic head with h eterogeneous appearance Multiple Foci of calcification. Limited evaluation of the mildly distended Gallbladder given noncontrast imaging. No CT evidence of cholelithiasis. Kidneys, and urinary bladder unremarkable. Prostate measures 3.8 x 3 x 4.3 cm. Moderate to significant distention of the stomach. Postsurgical changes of the bowel over the right hemipelvis. No significant distention of the small bowel loops with Limited evaluation given noncontrast imaging. Appendix is not definitely visualized. Without visualization of the Appendix, can not exclude acute appendicitis. Large amount of fecal material within the colon. No pneumoperitoneum. Diffuse mesenteric edema /trace ascites. Moderate atherosclerotic calcification of the aorta and bilateral iliacs. Limited evaluation for lymphadenopathy. Moderate body wall edema. No evidence of acute osseous abnormalities. IMPRESSION: Limited noncontrast imaging. Constipation. Diffuse mesenteric edema /trace ascites. Redemonstration of minimal intrahepatic and mild extrahepatic biliary ductal dilatation with abrupt cutoff of of the pancreatic head. There is heterogeneous fullness of the pancreatic head with multiple Foci of calcification ; unchanged from prior imaging . Body wall edema. Bibasilar atelectasis with bibasilar bronchial wall thickening.
[2025-03-13] MEDS ORDERED: ONDA-180 PO (22:06)
[2025-03-13] MEDS ORDERED: GABA300T4 PO (22:06)
[2025-03-13] MEDS: KETOROLAC TROMETH 60MG/2ML VIAL IM ONE (22:47)
== END 2025-03-13 23:03 | disposition home or self-care (01) ==
LOC: ER 16:08
DX: K86.1 Other chronic pancreatitis (principal); R10.13 Epigastric pain; F17.210 Nicotine dependence, cigarettes, uncomplicated; F41.9 Anxiety disorder, unspecified; Z79.899 Other long term (current) drug therapy; Z98.890 Other specified postprocedural states; Z90.49 Acquired absence of other specified parts of digestive tract
CPT/HCPCS: 36415; 74176; 80053; 83690; 85025; 96372; 99285; J1171; J1885; Q0162